=== PATIENT | female | born 1945 | race Caucasian/White ===

== ENCOUNTER → 2023-10-25 09:57 | Outpatient (REF) | payer OTHER, BC, SELFPAY ==
[2023-10-25 10:22] LABS: % Basophils 0.5 % (0-2); % Eosinophils 5.7 % (0-6); % Immature Granulocytes 0.7 % (0-0.5); % Lymphocytes 16.3 % (20.5-51.1); % Monocytes 8.8 % (1.7-9.3); Absolute Eosinophils 0.4 10^3/uL (0-0.7); Absolute Monocytes 0.5 10^3/uL (0.1-0.6); Absolute Neutrophils 4.2 10^3/uL (1.4-6.5); Hematocrit 27.4 % (37.0-47.0); Hemoglobin 8.8 g/dL (12.0-16.0); Mean Corp Hgb Conc. 32.1 g/dL (33.0-37.0); Mean Corpuscular Hgb 31.7 pg (27.0-31.0); Mean Corpuscular Volume 98.6 fL (81.0-99.0); Nucleated Red Blood Cells % 0 %; Platelet Count 91 10^3/uL (130-400); Red Blood Cell Count 2.78 10^6/uL (4.20-5.40); Red Cell Dist. Width 19.9 % (11.5-14.5); White Blood Cell Count 6.1 10^3/uL (4.8-10.8)
[2023-10-25 10:40] LABS: Ionized Calcium 1.03 mMOL/L (1.15-1.33)
[2023-10-25 10:50] LABS: Blood Urea Nitrogen 20 mg/dl (7-17); Carbon Dioxide 33 mmol/L (22-30); Chloride 104 mmol/L (98-107); Glucose 77 mg/dl (70-99); Potassium 3.4 mmol/L (3.5-5.1); Sodium 135 mmol/L (135-145); eGFR 52.08
== END ==
LOC: OLABP 09:57
PROVIDERS: ATTENDING PHYSICIAN Family Medicine
DX: S72.22XD Displaced subtrochanteric fracture of left femur, subsequent encounter for closed fracture with routine healing (principal); W19.XXXD Unspecified fall, subsequent encounter; M62.81 Muscle weakness (generalized); R26.2 Difficulty in walking, not elsewhere classified; N39.0 Urinary tract infection, site not specified; D72.829 Elevated white blood cell count, unspecified; I48.91 Unspecified atrial fibrillation; I50.9 Heart failure, unspecified; M54.50 Low back pain, unspecified; E03.9 Hypothyroidism, unspecified; I11.0 Hypertensive heart disease with heart failure; G47.30 Sleep apnea, unspecified; E66.9 Obesity, unspecified
CPT/HCPCS: 36415; 80048; 82330; 85025

== ENCOUNTER → 2023-10-26 10:19 | Outpatient (REF) | payer OTHER, BC, SELFPAY ==
[2023-10-26 12:17] LABS: Vitamin D, 25-OH*** < 12.8 ng/mL (30-80)
[2023-10-26 12:36] LABS: Calcium 7.1 mg/dl (8.4-10.2); Magnesium 1.8 mg/dl (1.6-2.3)
[2023-10-29 10:40] LABS: Intact PTH 69.9 pg/ml (13.6-85.8)
== END ==
LOC: OLABP 10:19
PROVIDERS: ATTENDING PHYSICIAN Family Medicine
DX: S72.22XD Displaced subtrochanteric fracture of left femur, subsequent encounter for closed fracture with routine healing (principal); W19.XXXD Unspecified fall, subsequent encounter; M62.81 Muscle weakness (generalized); R26.2 Difficulty in walking, not elsewhere classified; N39.0 Urinary tract infection, site not specified; B96.1 Klebsiella pneumoniae [K. pneumoniae] as the cause of diseases classified elsewhere; D72.829 Elevated white blood cell count, unspecified; I48.91 Unspecified atrial fibrillation; I50.9 Heart failure, unspecified; M54.50 Low back pain, unspecified; E03.9 Hypothyroidism, unspecified; I11.0 Hypertensive heart disease with heart failure; G47.30 Sleep apnea, unspecified; E66.9 Obesity, unspecified; Z79.899 Other long term (current) drug therapy
CPT/HCPCS: 36415; 82306; 83735; 83970; 84100

== ENCOUNTER 2023-11-12 20:03 | Inpatient (IN) | payer OTHER, SELFPAY ==
[2023-11-12] VITALS (19 sets, daily range): BP systolic 81–117; BP diastolic 43–64; BMI 36.4
[2023-11-12 16:56] LABS: % Basophils 0.2 % (0-2); % Lymphocytes 4.4 % (20.5-51.1); % Monocytes 3.5 % (1.7-9.3); % Neutrophils 90.9 % (42.2-75.2); Absolute Immature Granulocytes 0.1 10^3/uL (0-0.05); Absolute Lymphocytes 0.6 10^3/uL (1.2-3.4); Absolute Monocytes 0.4 10^3/uL (0.1-0.6); Absolute Neutrophils 11.3 10^3/uL (1.4-6.5); Hematocrit 34.6 % (37.0-47.0); Hemoglobin 11.9 g/dL (12.0-16.0); Mean Corp Hgb Conc. 34.4 g/dL (33.0-37.0); Mean Corpuscular Hgb 31.6 pg (27.0-31.0); Mean Corpuscular Volume 91.8 fL (81.0-99.0); Mean Platelet Volume 10.8 fL (7.4-10.4); Nucleated Red Blood Cells % 0 %; Platelet Count 112 10^3/uL (130-400); Red Blood Cell Count 3.77 10^6/uL (4.20-5.40); Red Cell Dist. Width 17.1 % (11.5-14.5); White Blood Cell Count 12.4 10^3/uL (4.8-10.8)
[2023-11-12 17:24] LABS: ALT (SGPT) 20 U/L (0-35); AST (SGOT) 46 U/L (14-36); Albumin 2.4 g/dl (3.5-5.0); Alkaline Phosphatase 316 U/L (38-126); Blood Urea Nitrogen 34 mg/dl (7-17); Calcium 7.7 mg/dl (8.4-10.2); Carbon Dioxide 31 mmol/L (22-30); Chloride 96 mmol/L (98-107); Glucose 126 mg/dl (70-99); Potassium 4.4 mmol/L (3.5-5.1); Sodium 128 mmol/L (135-145); Total Bilirubin 1.6 mg/dl (0.2-1.3); Total Protein 5.6 g/dl (6.3-8.2); eGFR 30.89
--- NOTE | 2023-11-12 17:32 | ED.GENMED ---
History of Present Illness
General
Chief Complaint: Change in Mental Status
Source: patient, records and family
Time Seen by Provider: 11/12/23 17:05
Travel History
Have you had any contact with someone who has COVID-19?: Unable to Answer
Do you have any symptoms of coronavirus? Fever > 100 degrees, chills, cough, shortness of breath, sore throat, loss of taste or smell, muscle aches, or headache?: Unable to Answer
History of Present Illness
History of Present Illness:
This patient is a 78-year-old female with multiple medical problems who was recently seen in outside hospital because of a leg fracture, and then transferred to [facility] which is where she is now. Her daughter states that over the last few days she
has had 'declining mental clarity'. She states that she was just diagnosed with a UTI and started on antibiotic and upon review of her records it appears that she was started on Levaquin yesterday. Yesterday the daughter noted that her blood
pressure was lower than normal and her blood pressure medications were held at that time. Daughter states patient has had a fever on and off for the last few days and that she has been refusing the lactulose that she is prescribed. She is also had
nausea on and off. History is very limited from patient given her mental status at this time. She denies any specific complaints.
Past History
Past History
ED Past Medical History: Arrthythmia (Atrial fibrillation), CHF, HTN, Hypercholesterolemia and Other ('Pituitary cyst'. Adrenal insufficiency,)
ED Past Surgical History: , Orthopedic and Tonsilectomy
Social History
Tobacco: Non-smoker
Alcohol: None
Drug: None
Personal:
Phy Exam
Physical Exam
Physical Exam:
GENERAL: Drowsy, in no apparent distress
EYE: pupils equal and reactive, conjunctive a pink, no photophobia
NECK: Supple, no significant adenopathy.
ENT: o/p clr, mm dry
CARDIAC: Regular rate and rhythm .
LUNGS: Equal breath sounds bilaterally, no acute respiratory distress, no wheezes or rhonchi, occasional very faint Rales bilaterally
ABDOMEN: Soft, without focal tenderness, no r/g
NEUROLOGICAL: Awake but drowsy, oriented to first name but not last name, oriented to year, able to identify her daughter by name, not oriented to location. Uncooperative with formal neurological exam such as [id number] etc. She has limited
range of motion of left lower extremity given recent surgery, does move right lower extremity but reluctant to do her formal leg raise. No asterixis noted
SKIN: Warm and dry, skin intact.
MUSCULOSKELETAL: Trace bilateral lower extremity edema, well perfused.
PSYCH: Normal and appropriate interaction.
Course
Orders/Labs/Results
Orders:
Orders
11/12/23 16:48
Complete Blood Count/With Diff Urgent
Comprehensive Metabolic Panel Urgent
Free T4 Urgent
Comment: ADD ON
Lactic Acid Urgent
TSH Urgent
Comment: ADD ON
Blood Culture Urgent
NIKKI Source: Blood/Venous
Specimen Description:
11/12/23 17:06
Blood Culture Urgent
NIKKI Source: Blood/Venous
Specimen Description:
11/12/23 17:21
0.9% Sodium Chloride 1000 ml [Nss] 1,000 ml IV BOLUS
11/12/23 17:23
CXR2 [CR Chest - 2 Views ] Stat
Comment:
Reason For Exam: reported fever
11/12/23 17:27
Hydrocortisone Sod Succinate [Solu-Cortef] 100 mg IV NOW STA
11/12/23 17:30
Meropenem [Merrem] 1,000 mg IV NOW STA
11/12/23 17:31
Add On- LAB Urgent
Tests Added?: TSH
11/12/23 17:48
Ammonia Urgent
Troponin I Stat
11/12/23 17:51
Sterile Water [Sterile Water For Injection] 10 ml .ROUTE .STK-MED ONE
11/12/23 17:54
Sterile Water [Sterile Water For Injection] 10 ml .ROUTE .STK-MED ONE
11/12/23 17:56
Add On- LAB Urgent
Tests Added?: Free T4
11/12/23 18:50
0.9% Sodium Chloride 1000 ml [Nss] 1,500 ml IV BOLUS
11/12/23 19:14
COVID-19 Antigen Urgent
Source: Nasal Swab
UA Reflex to Culture [Urinalysis Reflex To Culture] Stat
Date Specimen was Collected: 11/12/23
Time Specimen was Collected: 19:11
Urine Microscopic Reflex Cult Stat
Influenza A+B Rapid Molecular Stat
NIKKI Source: Nasal Swab
Specimen Description:
Urine Culture Stat
NIKKI Source: U
Specimen Description:
Date Specimen was Collected: 11/12/23
Time Specimen was Collected: 19:11
11/12/23 19:37
Admit/Transfer Patient As Directed
Co-Sign Provider:
Level of Care: Inpatient admission
Assign to:: ICU
Physician / Group: Hospitalist
Diagnosis: Sepsis, renal failure, adrenal failure
Reason for Hospitalization: Sepsis, renal failure, adrenal failure
Expected length of stay greater than two midnights?: Yes
ELOS- Estimated Length of Stay in days: 5
I certify the patient meets the requirements for IP care: Yes
11/12/23 19:39
Code Status As Directed
Resuscitation Status: Full Code
11/12/23 20:38
0.9% Sodium Chloride 1000 ml [Nss] 1,000 ml IV 80 mls/hr
Acetaminophen [Tylenol] 1,000 mg PO BID
Bisacodyl [Dulcolax] 10 mg RECTAL DAILY PRN
Lactulose [Duphalac/Chronulac] 20 grams PO BID
Magnesium Hydroxide [Milk of Magnesia] 30 ml PO DAILY PRN
Ondansetron HCl [Zofran] 4 mg PO Q8HPRN PRN
Phosphate Enema [Fleet Phosphate Enema-Adult] 118 ml RECTAL DAILYPRN PRN
Rifaximin [Xifaxan] 550 mg PO BID
Simethicone [Mylicon] 160 mg PO QIDPRN PRN
wound dressings [Triad Wound Dressing] 1 applic TOPICAL BID
11/12/23 20:38
Activity As Directed
Activity Level: With Assistance
Intake/ Output As Directed
Frequency: Per unit guidelines
Pneumatic Compression Sleeves As Directed
Type: Knee high
Vital Signs As Directed
Frequency: Per unit guidelines
DX Deep Vein Thrombosis Video Routine
11/12/23 20:51
Benzocaine/Menthol [Anesthetic Lozenge] 1 lozenge PO Q2H PRN
11/12/23 21:08
Lactic Acid Q4H
Comment: repeat q4 hours x 4 or until less than 2 mmol/L
11/13/23 00:00
Hydrocortisone Sod Succinate [Solu-Cortef] 100 mg IV Q8
11/13/23 03:39
Complete Blood Count/No Diff IN AM
Comprehensive Metabolic Panel IN AM
Lactic Acid Q4H
Comment: repeat q4 hours x 4 or until less than 2 mmol/L
11/13/23 Breakfast
Regular
At Your Request: Full Participation
Meropenem [Merrem] 1,000 mg IV Q12H
11/13/23 06:30
Levothyroxine [Synthroid] 100 mcg PO DAILY@0630
11/13/23 08:00
Fluoxetine HCl [Prozac] 20 mg PO DAILY
Liothyronine [Cytomel] 5 microgram PO DAILY
11/13/23 10:35
Lactic Acid Q4H
Comment: repeat q4 hours x 4 or until less than 2 mmol/L
11/14/23 08:00
Cyanocobalamin [Vitamin B-12] 1,000 mcg PO Q48H
Abnormal Lab Results
11/12/23 11/12/23
16:48 19:14
WBC 12.4 H 10^3/uL
(4.8-10.8)
RBC 3.77 L 10^6/uL
(4.20-5.40)
Hgb 11.9 L g/dL
(12.0-16.0)
Hct 34.6 L %
(37.0-47.0)
MCH 31.6 H pg
(27.0-31.0)
RDW 17.1 H %
(11.5-14.5)
Plt Count 112 L D 10^3/uL
(130-400)
MPV 10.8 H fL
(7.4-10.4)
Abs Immat Gran (auto) 0.1 H 10^3/uL
(0-0.05)
Absolute Neuts (auto) 11.3 H 10^3/uL
(1.4-6.5)
Absolute Lymphs (auto) 0.6 L 10^3/uL
(1.2-3.4)
Immature Gran % 1.0 H %
(0-0.5)
Neutrophils % 90.9 H %
(42.2-75.2)
Lymphocytes % 4.4 L %
(20.5-51.1)
Sodium 128 L mmol/L
(135-145)
Chloride 96 L mmol/L
(98-107)
Carbon Dioxide 31 H mmol/L
(22-30)
BUN 34 H mg/dl
(7-17)
Creatinine 1.7 H mg/dL
(0.6-1.0)
Glucose 126 H mg/dl
(70-99)
Calcium 7.7 L mg/dl
(8.4-10.2)
Total Bilirubin 1.6 H mg/dl
(0.2-1.3)
AST 46 H U/L
(14-36)
Alkaline Phosphatase 316 H U/L
(38-126)
Total Protein 5.6 L g/dl
(6.3-8.2)
Albumin 2.4 L g/dl
(3.5-5.0)
TSH < 0.02 L uIU/ml
(0.47-4.68)
Ur Occult Blood Reflex 3+ A
(Negative)
Urine Nitrite (Reflex) Positive A
(Negative)
Leukocyte Esterase Rfl 2+ A
(Negative)
Urine WBC (Reflex) 26-30 A /HPF
(0-5)
Urine Bacteria (Reflex) Moderate A
(Negative)
Urine Albumin (Reflex) 1+ A
(Neg - Trace)
11/12/23 16:48
11/12/23 16:48
Vital Signs
Initial and Last Documented VS:
Initial Vital Signs
Temp Pulse Resp BP Pulse Ox
98.1 F 77 36 109/60 96
11/12/23 16:41 11/12/23 16:41 11/12/23 16:41 11/12/23 16:41 11/12/23 16:41
Last Documented Vital Signs
Temp Pulse Resp BP Pulse Ox
99.1 F 79 19 102/53 95
11/13/23 19:08 11/13/23 22:00 11/13/23 22:00 11/13/23 22:00 11/13/23 22:12
*Critical Care Note
Total Time (30-74mins, 75-104mins- exclusive of procedures): 30
Update Note
Update Note:
Patient presents to the Emergency Department with ____mental status change
Number and Complexity of Problems Addressed at the Encounter
� Chronic conditions affecting care:
� Acute Exacerbation and/or Progression of Chronic Illness:
� Differential Diagnosis includes: But not limited to adrenal crisis, sepsis, hyperammonia level, dehydration, etc.
Amount and/or Complexity of Data to be Reviewed and Analyzed
� I performed an independent evaluation of and my interpretation is:
EKG:sinus with PVS, nonspec st/t abnl, no acute ischemia
CT:
Xrays:read by rads, atelect vs pna L base
Laboratory Studies:wbc elevation (c/w sepsis), anemia baseline, hypoNa (may be c/w adrenal insuff), baseline rigoberto insuffice, u/a c/w infx
Other:
� Review of other/old records reveals: Urine sample from November 10 of this year reviewed, patient has Klebsiella pneumonia in her urine ESBL sensitivity only to ertapenem, meropenem and Zosyn. All of which are penicillin
derivatives� Patient has allergy described as hives to penicillins, however she needs treatment and we will give her meropenem with very close observation for an allergic reaction.
� Clinical information was obtained by an independent historian: Daughter who is bedside
� Prescriptions/Medications Considered but not given:
� Further testing considered but not performed:
Risk of Complications and/or Morbidity or Mortality of Patient Management
� Social determinants of health affecting care:
� Discussion with other providers (PCP, Hospitalists, Consultants, etc):
� Escalation of care including admission/observation vs risk of discharge considered:Pt with ESBL urosepsis, bp responding to IVF, abx started, admit. (D/w dr Stoner/shiela). Suspect element of adrenal insuffic, hydrocortisone
also given in ED. Will continue to montior closely.
ED Attending Note
-
Portions of this chart may have been created with voice recognition software.� Occasional wrong word or��sound alike� substitutions may have occurred due to the inherent limitations of voice recognition software.
Discharge Plan
Departure
Patient Disposition: Admit
Admit to doctor: conchis
Presentation/result/management discussed w/ accepting MD/DO: Hospitalist
Condition: Fair
Discharge Problem:
urosepsis
Interventions
Interventions:
*Risk Screen - Suicide Last Done: 11/12/23 21:18
*General Assessment Last Done: 11/12/23 16:42
*Neglect/Abuse Screening Last Done: 11/12/23 16:42
ED- Fall Risk Assessment Last Done: 11/12/23 20:49
*ED COVID-19 Vaccine History Last Done: 11/12/23 21:15
*Nursing Disposition Last Done: 11/12/23 20:49
ED- Pulmonary Assessment Last Done: 11/12/23 20:49
ED-Psychological Assessment Last Done: 11/12/23 20:49
ED- Neurological Assessment Last Done: 11/12/23 16:43
ED- Cardiac Assessment Last Done: 11/12/23 20:49
Discharge Date and Time
Discharge Date/Time: 11/12/23 20:52
[2023-11-12] MEDS: SOLU-CORTEF 100 MG IV (17:57)
[2023-11-12] MEDS: MERREM 1000 MG IV (17:57)
[2023-11-12] MEDS: NSS 1000 IV ×2 (17:58→21:35)
[2023-11-12 18:22] LABS: TSH < 0.02 uIU/ml (0.47-4.68)
[2023-11-12 18:29] LABS: Ammonia 22 umol/L (9-30); Troponin I < 0.012 ng/ml
[2023-11-12 18:31] LABS: Free T4 1.38 ng/dl (0.78-2.19)
--- NOTE | 2023-11-12 19:15 | HPS.HSE ---
Family Physician
-
Family Physician: Christopher Nogueira MD
Chief Complaint
-
Change of mental status
History of Present Illness
78-year-old woman with recent leg fracture, and then transferred to [facility] for rehab (which is where she is now).� Over the last few days she has had 'declining mental clarity'.� She was diagnosed with a UTI and started on antibiotic (levaquin
yesterday.� Today her blood pressure was lower than normal and her blood pressure medications were held.� She has had a fever on and off for the last few days and has been refusing the lactulose that she is prescribed (DELILAH).� + nausea on and off.�
She denies any specific complaints, but is not a reliable historian given change of mental status. Per conversation with ER attending, her urine culture from 2 days ago grew an organism resistant to Levaquin and sensitive to meropenem. She has
received meropenem in the past without problems (she has PCN allergy).
Medical History
Past Medical History
Past Medical History: Reports Other
Additional Past Medical History:
Atrial fibrillation, paroxysmal
CHF, last known ef in 2020 was 50%, likely chronic diastolic failure
essential HTN,
Hypercholesterolemia
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
,
Orthopedic surgery
Tonsilectomy
liver cirrhosis (MAZARIEGOS)
Past Surgical History: Reports Other
Additional Past Surgical History:
See above
Social History
Unable to obtain full social history at this time due to: Acuity
Tobacco: Non-smoker
Alcohol: None
Drug: None
Family History
Family History: Not pertinent
Allergies / Home Medications
Allergies reflects when Allergies were last updated in [facility].
Home Medications with original date entered in [facility]
Allergy/Medication List:
Allergies
Allergy/AdvReac Type Severity Reaction Status Date / Time
Penicillins Allergy Hives Verified 10/17/19 16:15
Home Medications
apixaban 5 mg tablet (Eliquis) 5 mg PO BID Blood clot prevention/tx 10/17/19
levothyroxine 100 mcg tablet 100 mcg PO DAILY Thyroid 10/17/19
liothyronine 5 mcg tablet 5 mcg PO DAILY Thyroid 10/17/19
ondansetron HCl 4 mg tablet 4 mg PO Q8HPRN PRN nausea 10/17/19
rifaximin 550 mg tablet (Xifaxan) 550 mg PO BID Gastrointestinal issue 10/17/19
acetaminophen 500 mg tablet (Tylenol Extra Strength) 1,000 mg PO BID 11/12/23
amlodipine 10 mg tablet 10 mg PO DAILY 11/12/23
benzocaine 15 mg-menthol 3.6 mg lozenges (Cepacol Sore Throat (benzocaine-menthol)) 1 ruth mucous membrane Q2H PRN sore throat 11/12/23
bisacodyl 10 mg rectal suppository (Dulcolax (bisacodyl)) 10 mg VA DAILY PRN constipation 11/12/23
bisoprolol fumarate 5 mg tablet 5 mg PO DAILY Heart disease 11/12/23
bumetanide 1 mg tablet 1 mg PO DAILY 11/12/23
calcium carbonate 1,000 mg tablet 1,000 mg PO TID 11/12/23
cholecalciferol (vitamin D3) 125 mcg (5,000 unit) tablet 125 mcg PO DAILY 11/12/23
cyanocobalamin (vitamin B-12) 1,000 mcg tablet 1,000 mcg PO Q48H@0800 11/12/23
fluoxetine 20 mg capsule 20 mg PO DAILY 11/12/23
hydralazine 25 mg tablet 25 mg PO QID 11/12/23
lactulose 20 gram/30 mL oral solution 20 g PO BID 11/12/23
levofloxacin 750 mg tablet 750 mg PO DAILY 11/12/23
losartan 100 mg tablet 100 mg PO DAILY 11/12/23
magnesium hydroxide 400 mg/5 mL oral suspension (Milk of Magnesia) 30 ml PO DAILY PRN if no BM on day 4 of no BM 11/12/23
naloxone 4 mg/actuation nasal spray (Narcan) 4 mg intranasal Q3M PRN opioid suspected overdose 11/12/23
pantoprazole 40 mg tablet,delayed release 40 mg PO DAILY 11/12/23
prednisone 10 mg tablet 10 mg PO .TAPER 11/12/23
simethicone 80 mg chewable tablet 160 mg PO QIDPRN PRN flatulence 11/12/23
sodium phosphates 19 gram-7 gram/118 mL enema (Fleet Enema) 118 ml VA DAILYPRN PRN constipation 11/12/23
wound dressings (Triad Wound Dressing paste) 1 applic topical BID apply to left abd fold 11/12/23
Review of Systems
-
Unable to obtain full review of systems at this time due to: Acuity
History Source: Patient
Physical Exam
Vital Signs
Vital Signs
Temp Pulse Resp BP Pulse Ox
98.1 F 77 36 109/60 96
11/12/23 16:41 11/12/23 16:41 11/12/23 16:41 11/12/23 16:41 11/12/23 16:41
Physical Exam
General: Well Developed, Well Nourished, No Apparent Distress, Comfortable and Obese
HEENT: [place] Conjunctivae, Nose Appears Normal and Ears Appear Normal
Respiratory: Clear and Decreased Breath Sounds
Cardiac: S1/S2, Regular Rhythm and Other (faint heart sounds)
GI: Soft, Non Tender and Non Distended
Musculoskeletal: No Clubbing, No Cyanosis and No Edema
Skin: Warm, Dry and Rash (several breaks in her skin on UE and LE)
Neuro: Awake
Psych: Calm and Confused
Laboratory Results
-
11/12/23 16:48
11/12/23 16:48
Laboratory Results
Lactic Acid 2.0 mmol/L (0.7-2.0) 11/12/23 16:48
Total Bilirubin 1.6 mg/dl (0.2-1.3) H 11/12/23 16:48
AST 46 U/L (14-36) H 11/12/23 16:48
ALT 20 U/L (0-35) 11/12/23 16:48
Alkaline Phosphatase 316 U/L (38-126) H 11/12/23 16:48
Troponin I < 0.012 ng/ml 11/12/23 17:48
Data Reviewed
-
Lab Data: Labs Reviewed by me
Impression/Plan
-
IMPRESSION:
78 woman with adrenal insufficiency, sepsis from a urinary source. Significant findings:
WBC 12.4
Na 128
BUN/Creat 34/1.7, baseline 20/1.0
BP 109/60
PLAN:
1. Sepsis, urinary source, resistant organism
IV fluids
IV abx (meropenem given allergy to PCN, and tolerating meropenem in the past)
Hold BP meds
Draw new urine culture
2. Adrenal insufficiency - chronic issue
Stress dose IV steroids
3. Low Na, may be from decreased po and adrenal issues
IV steroids
IV saline
Recheck in am
4. Acute renal failure, BUN/Creat 34/1.7
IV saline
recheck in am
5. Anemia - chronic, likely from chronic disease, H/H 11.9/34.6
H/H at baseline
No indication for transfusion
6. Heart failure - chronic diastolic - does not appear volume overloaded at this time
Follow daily
7. Chronic wounds - change dressings as needed
8. Liver failure - continue xifaxan
9. Essential HTN - pressures now low. Hold BP meds
10. Paroxysmal afib - continue eliquis. No signs of bleeding
11. Otherwise complex PMH with GERD, constipation, depression, hypothyroid
Continue usual home meds
Full code
Eliquis for DVTp
[2023-11-12 19:34] LABS: Urine Albumin 1+ (Neg - Trace); Urine Bilirubin Negative (Negative); Urine Character Slightly Cloudy (Clear); Urine Color Yellow; Urine Glucose Negative (Negative); Urine Ketone Negative (Negative); Urine Leukocyte 2+ (Negative); Urine Nitrite Positive (Negative); Urine Occult Blood 3+ (Negative); Urine Urobilinogen Negative (Neg - 1+)
[2023-11-12] MEDS: NSS 1500 IV (19:37)
[2023-11-12 19:46] LABS: Urine Red Blood Cell 0-2 /HPF (0-2); Urine White Cell 26-30 /HPF (0-5)
[2023-11-12 19:47] LABS: Urine Bacteria Moderate (Negative)
[2023-11-12 19:51] LABS: COVID-19 Antigen Negative (Negative)
--- NOTE | 2023-11-12 21:12 | W.PN.SEPSIS ---
Sepsis
Vital Signs
Temp Pulse Resp BP Pulse Ox
98.1 F 88 21 110/61 94
11/12/23 16:41 11/12/23 20:45 11/12/23 20:45 11/12/23 20:30 11/12/23 20:45
Physical Exam
Physical Exam:
A focused exam was performed after fluid resuscitation.
Capillary Refill
Bilateral Upper Extremity:
[place] Time: Less than 3 sec
Bilateral Lower Extremity:
[place] Time: Less than 3 sec
Pulse Evaluation
Bilateral Radial:
Pulse Evaluation: Present
Bilateral Dorsalis Pedis:
Pulse Evaluation: Present
[2023-11-12 21:24] LABS: Glucose - Point of Care 103 mg/dl (70-99)
[2023-11-12] MEDS: DUPHALAC/CHRONULAC PO (21:26)
--- NOTE | 2023-11-12 21:27 | PTCARENOTE ---
received patient from ER into [id number]. oriented to name and . forgetful at times. SR on monitor, afebrile, weak pedal pulses. 2L NC, satting high 90s. diminished breath sounds noted. + bowel sounds, BM x1 upon arrival. purewick placed, brief intact.
CHG bath completed. b/l groin areas with MASD and open skin tears. barrier cream used. labs sent. plan of care ongoing.
[2023-11-12 21:34] LABS: APTT 69.8 Sec (23.4-35.0)
[2023-11-12] MEDS: TYLENOL 1000 MG PO (21:35)
[2023-11-12] MEDS: XIFAXAN 550 MG PO (21:36)
[2023-11-12 21:45] LABS: Lactic Acid 2.4 mmol/L (0.7-2.0)
[2023-11-12 22:37] LABS: INR 3.69; PT 36.7 Sec (11.4-14.6)
[2023-11-12] MEDS: SOLU-CORTEF 50 MG IV (23:22)
[2023-11-13] VITALS (34 sets, daily range): BP systolic 94–133; BP diastolic 45–91; BMI 36.4
--- NOTE | 2023-11-13 01:00 | PTCARENOTE ---
patient reassessed. systems unchanged. patient repositioned. denies pain. daughter updated at bedside before leaving for the night. plan of care ongoing.
[2023-11-13 03:53] LABS: Hematocrit 32.4 % (37.0-47.0); Mean Corpuscular Hgb 31.4 pg (27.0-31.0); Mean Corpuscular Volume 92.6 fL (81.0-99.0); Mean Platelet Volume 10.2 fL (7.4-10.4); Platelet Count 112 10^3/uL (130-400); Red Cell Dist. Width 16.8 % (11.5-14.5); White Blood Cell Count 10.4 10^3/uL (4.8-10.8)
[2023-11-13 04:04] LABS: Lactic Acid 2.2 mmol/L (0.7-2.0)
--- NOTE | 2023-11-13 04:09 | PTCARENOTE ---
patient reassessed. systems unchanged. no UOP, bladder scan for 400ml, straight cath for 400ml. purewick replaced. AM labs sent. patient repositioned. plan of care ongoing.
[2023-11-13 04:33] LABS: Procalcitonin 1.23 ng/ml (0.0-0.25)
[2023-11-13 04:45] LABS: ALT (SGPT) 16 U/L (0-35); AST (SGOT) 34 U/L (14-36); Albumin 2.1 g/dl (3.5-5.0); Alkaline Phosphatase 242 U/L (38-126); Blood Urea Nitrogen 35 mg/dl (7-17); Calcium 7.5 mg/dl (8.4-10.2); Carbon Dioxide 26 mmol/L (22-30); Chloride 98 mmol/L (98-107); Estimated Creatinine Clearance 33 ml/min; Glucose 142 mg/dl (70-99); Potassium 4.3 mmol/L (3.5-5.1); Sodium 132 mmol/L (135-145); Total Bilirubin 1.3 mg/dl (0.2-1.3); Total Protein 5.1 g/dl (6.3-8.2); eGFR 38.99
[2023-11-13] MEDS: STERILE WATER FOR INJECTION 20 ML IV ×2 (05:18→17:27)
[2023-11-13] MEDS: MERREM 1000 MG IV ×2 (05:18→17:27)
[2023-11-13] MEDS: SOLU-CORTEF 50 MG IV ×4 (05:18→23:05)
[2023-11-13] MEDS: SYNTHROID 100 MCG PO (05:19)
--- NOTE | 2023-11-13 07:27 | W.PN.HOSP.TC ---
Today's Communication/Plan
-
cont monitoring in ICU
IV abx meropenem
IVF
CT abd/pelvis oral contrast only
monitor lactic acid
monitor renal function
cont xifaxan lactulose
stress sterooids
Assessment / Plan
Assessment / Plan
Physical Exam
General: Well Developed, Well Nourished, No Apparent Distress, Comfortable and Obese
HEENT: [place] Conjunctivae, Nose Appears Normal and Ears Appear Normal
Respiratory: Clear and Decreased Breath Sounds
Cardiac: S1/S2, Regular Rhythm faint heart sounds
GI: Soft, Non Tender and distended vs obesity
Musculoskeletal: No Clubbing, No Cyanosis and No Edema
Skin: Warm, Dry and Rash (several breaks in her skin on UE and LE)
Neuro: Awake Oriented to Person only
Psych: Calm following simple commands
78F with hx Obesity recent leg fx [facility] pAfib HFpEF HTN HLD DM adrenal insufficiency MAZARIEGOS Cirrhosis here with TME sepsis UTI
#� Sepsis, urinary source, resistant organism
IV fluids
IV abx (meropenem given allergy to PCN, and tolerating meropenem in the past)
Hold BP meds
Follow cultures
#Lactic acidosis persists possibly d/t poor clearance Liver dysfunction/cirrhosis
received multiple IVF bolus
cont to monitor
CT abd/pelvis w/ oral contrast only given santosh, evaluation for possible source lactic acid elevation
#� Adrenal insufficiency - chronic issue
Stress dose IV steroids
#� Low Na, may be from decreased po and adrenal issues
Improved with IV steroids IVF NS
#� SANTOSH
Cr improving
Cont IVF
monitor kidney function
#� Anemia - chronic, likely from chronic disease
H/H at baseline
cont to monitor
#� Heart failure - chronic diastolic - appears euvolemic at this time
#� Chronic wounds - change dressings as needed
#� Cirrhosis - continue xifaxan lactulose
limited abd US appreciated no ascites
#� Essential HTN - pressures now low.� Hold BP meds
# Paroxysmal afib - continue eliquis.� No signs of bleeding
#Otherwise complex PMH with GERD, constipation, depression, hypothyroid
Continue usual home meds
Full code
Eliquis for DVTp
Discussed with patient and her daughter Ethel
Total Critical Care Time__50___ minutes. I was immediately available to the patient and staff. I personally examined, reviewed labs, diagnostic images/reports, interpretations, treatment plans, discussed patient care with other providers and
family/patient's daughter Ethel ( patient is unable to make decisions at this time due to AMS), entered orders as appropriate and documented the medical record.
Anticipated Discharge: > 48 hours
Subjective/Interval History
-
Date of Service: November 13, 2023
AOx1 oriented to person only. Daughter Ethel present during evaluation. Patient otherwise appears comfortably at this time. Denies pain. Tremors noted on outstretched ext's.
Objective Data
-
Labs:
Laboratory Results
11/12/23 11/13/23
21:08 03:39
WBC 10.4
Hgb 11.0 L
Hct 32.4 L
Plt Count 112 L
PT 36.7 H
INR 3.69
APTT 69.8 H
Sodium 132 L
Potassium 4.3
Chloride 98
Carbon Dioxide 26
BUN 35 H
Creatinine 1.4 H
Glucose 142 H
Calcium 7.5 L
Total Bilirubin 1.3
AST 34
ALT 16
Alkaline Phosphatase 242 H
Vital Signs:
Vital Signs
Temp Pulse Resp BP Pulse Ox
97.7 F 70 18 116/58 96
11/13/23 03:00 11/13/23 07:00 11/13/23 07:00 11/13/23 07:00 11/13/23 07:00
I&O
11/12/23 11/13/23 11/14/23
06:59 06:59 06:59
Intake Total 630 / 630
Output Total 400 / 400
Balance 230 / 230
--- NOTE | 2023-11-13 08:00 | PTCARENOTE ---
Pt received this am. Assessment as documented. Pt tremulous. Difficulty following sommands. Confused conversation. PAINTING. Weak extremities. Difficulty drinking and taking meds.
[2023-11-13] MEDS: CYTOMEL 5 MICROGRAM PO (09:09)
[2023-11-13] MEDS: XIFAXAN 550 MG PO (09:10)
[2023-11-13] MEDS: TYLENOL 1000 MG PO (09:10)
[2023-11-13] MEDS: DUPHALAC/CHRONULAC 20 GRAMS PO (09:10)
[2023-11-13] MEDS: PROZAC 20 MG PO (09:10)
[2023-11-13] MEDS: NSS 1000 IV ×2 (09:15→21:11)
--- NOTE | 2023-11-13 09:43 | CON.INTV ---
Consultation
Consultation Request
Date/Time Consultation Requested: 11/12/20232218
Date/Time Consultation Performed: 11/13/2023919
Requesting Provider: JW Carter
Performing Provider: Dr. Blackmon
Reason for Consultation: Hypotension/lactic acidosis
Medical History
-
Chief Complaint: Altered mental status
History of Present Illness:
78-year-old female with past med history of hyperlipidemia, CHF and A-fib who presented from rehab for change in mental status. Apparently patient tested positive for ESBL. Patient was altered in the ER. Blood pressure was low at 109/58 and she
was afebrile to 98.1 �F. CXR showed a left basilar opacity suggestive of atelectasis versus pneumonia. Labs showed hyponatremia, elevated creatinine, reduced TSH with normal free T4, leukocytosis, anemia and thrombocytopenia. COVID antigen was
negative. Urinalysis positive for UTI. She was given IV fluids with a total of 2.5 L 0.9% NS, and also given hydrocortisone and meropenem. She apparently has a history of adrenal insufficiency. Stress dose steroids were started and due to
concern for hypotension and worsening sepsis, she was transferred to ICU for further management. Critical care services consulted for additional recommendations.
PMHx: A-fib, history of CHF, hypertension/hyperlipidemia, history of CVA, sleep apnea on CPAP, history of diverticulitis, hypothyroidism, cataracts, renal calculi, history of UTI, adrenal insufficiency s/p pituitary cyst removal on chronic
prednisone (5mg daily), history of liver cirrhosis (MAZARIEGOS)
PSHx: Brain cyst removal; x 3; tonsillectomy; bilateral knee replacement
Past Medical History
Past Medical History: Other (Above as per HPI)
Past Surgical History: Other (Above as per HPI)
Social History
Tobacco: Non-smoker
Alcohol: None
Drug: None
Family History
Family History: Reviewed & Not Pertinent
Allergies / Home Medications
Allergies
Allergy/AdvReac Type Severity Reaction Status Date / Time
Penicillins Allergy Hives Verified 10/17/19 16:15
Home Medications
Medication Instructions Recorded Confirmed Last Taken Type
apixaban 5 mg tablet (Eliquis) 5 mg PO BID Blood clot 10/17/19 11/12/23 11/12/23 History
prevention/tx
levothyroxine 100 mcg tablet 100 mcg PO DAILY Thyroid 10/17/19 11/12/23 11/12/23 History
liothyronine 5 mcg tablet 5 mcg PO DAILY Thyroid 10/17/19 11/12/23 11/12/23 History
ondansetron HCl 4 mg tablet 4 mg PO Q8HPRN PRN nausea 10/17/19 11/12/23 10/17/19 History
rifaximin 550 mg tablet (Xifaxan) 550 mg PO BID Gastrointestinal 10/17/19 11/12/23 11/12/23 History
issue
acetaminophen 500 mg tablet 1,000 mg PO BID 11/12/23 11/12/23 11/12/23 History
(Tylenol Extra Strength)
amlodipine 10 mg tablet 10 mg PO DAILY 11/12/23 11/12/23 11/12/23 History
benzocaine 15 mg-menthol 3.6 mg 1 ruth mucous membrane Q2H PRN sore 11/12/23 11/12/23 Unknown History
lozenges (Cepacol Sore Throat throat
(benzocaine-menthol))
bisacodyl 10 mg rectal suppository 10 mg MI DAILY PRN constipation 11/12/23 11/12/23 Unknown History
(Dulcolax (bisacodyl))
bisoprolol fumarate 5 mg tablet 5 mg PO DAILY Heart disease 11/12/23 11/12/23 11/12/23 History
bumetanide 1 mg tablet 1 mg PO DAILY 11/12/23 11/12/23 11/12/23 History
calcium carbonate 1,000 mg tablet 1,000 mg PO TID 11/12/23 11/12/23 11/12/23 History
cholecalciferol (vitamin D3) 125 125 mcg PO DAILY 11/12/23 11/12/23 11/12/23 History
mcg (5,000 unit) tablet
cyanocobalamin (vitamin B-12) 1,000 mcg PO Q48H@0800 11/12/23 11/12/23 11/12/23 History
1,000 mcg tablet
fluoxetine 20 mg capsule 20 mg PO DAILY 11/12/23 11/12/23 11/12/23 History
hydralazine 25 mg tablet 25 mg PO QID 11/12/23 11/12/23 11/12/23 History
lactulose 20 gram/30 mL oral 20 g PO BID 11/12/23 11/12/23 11/12/23 History
solution
levofloxacin 750 mg tablet 750 mg PO DAILY 11/12/23 11/12/23 11/11/23 History
losartan 100 mg tablet 100 mg PO DAILY 11/12/23 11/12/23 11/12/23 History
magnesium hydroxide 400 mg/5 mL 30 ml PO DAILY PRN if no BM on day 11/12/23 11/12/23 Unknown History
oral suspension (Milk of Magnesia) 4 of no BM
naloxone 4 mg/actuation nasal 4 mg intranasal Q3M PRN opioid 11/12/23 11/12/23 Unknown History
spray (Narcan) suspected overdose
pantoprazole 40 mg tablet,delayed 40 mg PO DAILY 11/12/23 11/12/23 11/12/23 History
release
prednisone 10 mg tablet 10 mg PO .TAPER 11/12/23 11/12/23 11/12/23 History
simethicone 80 mg chewable tablet 160 mg PO QIDPRN PRN flatulence 11/12/23 11/12/23 Unknown History
sodium phosphates 19 gram-7 118 ml MI DAILYPRN PRN constipation 11/12/23 11/12/23 Unknown History
gram/118 mL enema (Fleet Enema)
wound dressings (Triad Wound 1 applic topical BID apply to left 11/12/23 11/12/23 11/12/23 History
Dressing paste) abd fold
Review of Systems
-
Unable to Obtain full review of systems at this time due to: Other (poor historian)
Vitals / Labs / Diagnostic Testing
Vital Signs
Temp Pulse Resp BP Pulse Ox
97.5 F 70 18 116/58 96
11/13/23 07:30 11/13/23 07:00 11/13/23 07:00 11/13/23 07:00 11/13/23 07:00
Lab Data
11/13/23 03:39
11/13/23 03:39
Laboratory Results
11/12/23
21:08
PT 36.7 H
INR 3.69
APTT 69.8 H
Microbiology
11/12/23 19:14 Nasal Swab Influenza Types A & B (TRISTAN) - Final
Negative for Influenza A & B, NAAT
Negative results must be combined with clinical observations
and patient history.
Nucleic Acid Amplification test (NAAT)performed on the
[employer] ID NOW platform.
Diagnostic Testing:
Physical Exam
-
HEENT: Normocephalic and Anicteric
Cardiovascular: S1/S2 and Peripheral Edema (trace LE edema b/l)
Respiratory: Wheeze (n), Rales (n), Rhonchi (n) and Non-Labored Respirations
GI: Soft, Non Distended and Non Tender
Neurology: Awake and Alert
Skin: Warm and Dry
General: Comfortable
Assessment
-
Assessment: 78-year-old female with past med history of hyperlipidemia, CHF and A-fib who presented from rehab for change in mental status. Apparently patient tested positive for ESBL. Patient was altered in the ER. Blood pressure was low at
109/58 and she was afebrile to 98.1 �F. CXR showed a left basilar opacity suggestive of atelectasis versus pneumonia. Labs showed hyponatremia, elevated creatinine, reduced TSH with normal free T4, leukocytosis, anemia and thrombocytopenia. COVID
antigen was negative. Urinalysis positive for UTI. She was given IV fluids with a total of 2.5 L 0.9% NS, and also given hydrocortisone and meropenem. She apparently has a history of adrenal insufficiency. Stress dose steroids were started and
due to concern for hypotension and worsening sepsis, she was transferred to ICU for further management. Critical care services consulted for additional recommendations.
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
history of liver cirrhosis (MAZARIEGOS)
Impression:
#Complicated UTI with sepsis without shock with history of ESBL Klebsiella pneumonia UTI (Dx on 11/10/2023)
#Hypochloremic, hyponatremia
#Acute kidney injury
#Elevated LFTs
#Hypoalbuminemia
#Subclinical hyperthyroidism
#Anemia (mild) and thrombocytopenia - likely due to sepsis
#Lactic acidosis
Plan:
- Maintain MAP>65
- Broad spectrum Abx with meropenem and follow up infectious workup (blood and urine Cx)
- Trend lactic acid until <2mmol/L
- Would favor administering albumin until >3g/dl
- renally dose all meds
- Maintain euglycemia with goal BG 140�180
- Replete K >4, Mg >2
- DVT prophylaxis
Due to lactic acidosis with need for hourly vital signs and possible need for vasopressors, continue ICU level care for this critically ill patient.
Critical care statement: A total of 40 minutes of critical care time was provided for this patient today. This includes management of unstable vital signs, evaluation of the patient at bedside, reviewing the patient's pertinent medical records
including radiographs, microbiology, laboratory evaluations, and discussion with primary team, consultants, pharmacy, nutrition, physical therapy, case management, charge nurse, critical care nursing, and respiratory therapy.
Data:
CXR 11-12-2023: Left basilar opacity suggesting atelectasis or mild pneumonia
Abd US 11-13-2023: No sonographic evidence for abdominal ascites.
[2023-11-13 12:46] LABS: Lactic Acid 3.6 mmol/L (0.7-2.0)
--- NOTE | 2023-11-13 13:00 | PTCARENOTE ---
Pt improving slightly. Seems more coherent. Able to have some conversations. Seems confused at times. Daughter at bedside. Tolerating lunch. No difficulty noted with intake. Less tremulous. Denies pain. Appears comfortable.
[2023-11-13] MEDS: NSS 500 IV ×2 (13:13→17:26)
[2023-11-13] MEDS: OMNIPAQUE 50 ML PO (17:26)
--- NOTE | 2023-11-13 19:15 | PTCARENOTE ---
Pt received this am. Assessment as documented. No changes since this am. Pt tremulous. Confused conversation.
[2023-11-13] MEDS: DUPHALAC/CHRONULAC PO (19:18)
[2023-11-13] MEDS: TYLENOL PO (19:18)
[2023-11-13] MEDS: XIFAXAN PO (19:19)
[2023-11-13 19:53] LABS: Lactic Acid 2.2 mmol/L (0.7-2.0)
--- NOTE | 2023-11-13 20:22 | PTCARENOTE ---
1930- received patient. oriented to name and . slow to respond. daughter at bedside facilitating conversation. SR on monitor. 2L NC, diminished breath sounds noted. pt with difficulty swallowing meds, notified by khai RN that she pocketed
them on roof of mouth this morning, could benefit from speech consult. + bowel sounds. purewick in place. IVF infusing. labs sent.
1999- transported pt down to CT after finishing oral contrast.
2019- pt back in room and repositioned. plan of care ongoing.
[2023-11-13] MEDS: ELIQUIS PO (21:10)
--- NOTE | 2023-11-13 21:39 | PTCARENOTE ---
patient incontinent after CT. bladder scanned and straight cath'd, purewick replaced. CHG bath done, fresh linens, patient repositioned.
wool tamper made aware of pocketing medicine incident on dayshift. plan of care ongoing.
[2023-11-14] VITALS (18 sets, daily range): BP systolic 103–144; BP diastolic 45–90; PULSE 63–78; O2SAT 94–97; BMI 36.6
--- NOTE | 2023-11-14 00:54 | PTCARENOTE ---
patient reassessed. systems unchanged. pt resting comfortably in bed, q2h turns. denies pain. plan of care ongoing.
[2023-11-14 04:04] LABS: Hematocrit 31.2 % (37.0-47.0); Hemoglobin 10.4 g/dL (12.0-16.0); Mean Corp Hgb Conc. 33.3 g/dL (33.0-37.0); Mean Corpuscular Hgb 31.8 pg (27.0-31.0); Mean Corpuscular Volume 95.4 fL (81.0-99.0); Mean Platelet Volume 10.5 fL (7.4-10.4); Platelet Count 112 10^3/uL (130-400); Red Blood Cell Count 3.27 10^6/uL (4.20-5.40); White Blood Cell Count 11.3 10^3/uL (4.8-10.8)
--- NOTE | 2023-11-14 04:05 | PTCARENOTE ---
patient reassessed. systems unchanged. AM labs sent patient repositioned. denies pain or SOB. plan of care ongoing.
[2023-11-14 04:21] LABS: Lactic Acid 1.5 mmol/L (0.7-2.0)
[2023-11-14 04:52] LABS: Blood Urea Nitrogen 36 mg/dl (7-17); Calcium 7.7 mg/dl (8.4-10.2); Carbon Dioxide 25 mmol/L (22-30); Chloride 102 mmol/L (98-107); Estimated Creatinine Clearance 42 ml/min; Glucose 122 mg/dl (70-99); Magnesium 2.3 mg/dl (1.6-2.3); Phosphorus 3.5 mg/dl (2.5-4.5); Sodium 133 mmol/L (135-145); eGFR 52.08
[2023-11-14] MEDS: SOLU-CORTEF 50 MG IV ×3 (05:14→23:53)
[2023-11-14] MEDS: MERREM 1000 MG IV ×2 (05:14→17:16)
[2023-11-14] MEDS: STERILE WATER FOR INJECTION 20 ML IV ×2 (05:15→17:16)
[2023-11-14] MEDS: SYNTHROID PO (05:15)
--- NOTE | 2023-11-14 05:32 | PTCARENOTE ---
patient reassessed. systems unchanged. pt remains comfortable in bed, resting. AM labs sent. patient repositioned. plan of care ongoing.
--- NOTE | 2023-11-14 07:00 | W.PN.HOSP.TC ---
Today's Communication/Plan
-
Stable for downgrade to IMU
Maxitrol started for left eye conjunctivitis
cont meropenem
ID eval
ST/PT/OT
Assessment / Plan
Assessment / Plan
Physical Exam
General: Well Developed, Well Nourished, No Apparent Distress, Comfortable and Obese
HEENT: [place] Conjunctivae, Nose Appears Normal and Ears Appear Normal
Respiratory: Clear and Decreased Breath Sounds
Cardiac: S1/S2, Regular Rhythm faint heart sounds
GI: Soft, Non Tender and distended vs obesity
Musculoskeletal: No Clubbing, No Cyanosis and No Edema
Skin: Warm, Dry and Rash (several breaks in her skin on UE and LE)
Neuro: AOx2 disoriented to time, tremors on outstretched hands improved
Psych: Calm Cooperative
78F with hx Obesity recent leg fx [facility] pAfib HFpEF HTN HLD DM adrenal insufficiency MAZARIEGOS Cirrhosis here with TME sepsis UTI
#� Sepsis, urinary source, resistant organism
IV fluids
IV abx (meropenem given allergy to PCN, and tolerating meropenem in the past)
Hold BP meds
Follow cultures
ID eval requested
#Lactic acidosis persists possibly d/t poor clearance Liver dysfunction/cirrhosis
received multiple IVF bolus
since resolved
CT abd/pelvis w/ oral contrast only given santosh, evaluation for possible source persistent lactic acid elevation
CT (limited by motion) noted
-Minimal amount of left pleural fluid. Parenchymal opacity within the visualized lower lungs, most likely atelectasis (incentive spirometry ordered)
-calcified gallstones, No gross evidence to suggest cholecystitis
-Cirrhotic liver.
-Atrophic adrenal glands bilaterally
-Enlarged right renal pelvis and proximal to mid right ureter, with normal caliber distal right ureter, no convincing evidence for right ureteral calculus (as per urology's review of imaging, enlargement likely d/t Rt UPJ obstruction cogenital
abnormality no intervention required)
-Mild dilation of the common iliac arteries bilaterally. Tortuosity of the abdominal aorta with no evidence for abdominal aortic aneurysm.
-Moderate distention of the rectum with stool, transverse measures 6.5 cm. No convincing evidence for stercoral colitis. (once suppository 11/14 administered with subsequent moderate bowel movement noted)
-Moderate amount of subcutaneous edema. Not mentioned above, there is also a small moderate amount of presacral edema.
-Mild superior endplate depression of the T10, T11, T12, and L4 vertebral bodies. Age is uncertain, although these findings appear new since of bowel radiograph of July 10, 2012. Please correlate with any acute symptoms.
-Previous vertebroplasty involving L1, L2, and L3.
-Top normal lymph nodes in the portacaval region. There is an enlarged interaortocaval lymph node. These are nonspecific, and could be inflammatory or neoplastic. Statistically, these are probably more likely to be reactive inflammatory lymph nodes.
#� Adrenal insufficiency - chronic issue
Stress dose IV steroids taper
#� Low Na, may be from decreased po and adrenal issues
Improved with IV steroids IVF NS
Cont to monitor
IVF since completed, steroid taper as above
#� SANTOSH resolved
Cr improved likely baseline 1.1
IVF completed
monitor kidney function
#Possible Left eye conjunctivitis
-Maxitrol eye drop started
-monitor response
#� Anemia - chronic, likely from chronic disease
H/H relatively stable at this time, some trickle down noted initial 11.9 down to 10.4
No obvious signs of bleeding, will cont to monitor
#� Heart failure - chronic diastolic - appears euvolemic at this time
#� Chronic wounds - change dressings as needed
#� Cirrhosis - continue xifaxan lactulose
limited abd US appreciated no ascites
#� Essential HTN - antihypertensives on hold for now given low normotensive pressures
# Paroxysmal afib - continue eliquis.� No signs of bleeding
#Otherwise complex PMH with GERD, constipation, depression, hypothyroid
Continue usual home meds
Full code
Eliquis for DVTp
Stable for downgrade to IMU
Discussed with patient and her daughter Ethel
I spent a total of 55 minutes with the patient or on the floor. More than 50% of this time involved counseling and coordination of care.
Anticipated Discharge: 24 - 48 hours
Subjective/Interval History
-
Date of Service: November 14, 2023
Seen and examined at bedside in no acute distress resting comfortably in bed. Altered Mental status and tremors outstretched hands significantly improved though not resolved. Later reported blurry vision itching left eye unclear duration
Objective Data
-
Labs:
Laboratory Results
11/14/23
03:55
WBC 11.3 H
Hgb 10.4 L
Hct 31.2 L
Plt Count 112 L
Sodium 133 L
Potassium 4.0
Chloride 102
Carbon Dioxide 25
BUN 36 H
Creatinine 1.1 H
Glucose 122 H
Calcium 7.7 L
Vital Signs:
Vital Signs
Temp Pulse Resp BP Pulse Ox
98.4 F 71 15 122/51 94
11/14/23 03:58 11/14/23 06:00 11/14/23 06:00 11/14/23 06:00 11/14/23 06:00
I&O
11/13/23 11/14/23 11/15/23
06:59 06:59 06:59
Intake Total 630 / 710 2960 / 2960
Output Total 400 / 400 500 / 500
Balance 230 / 310 2460 / 2460
--- NOTE | 2023-11-14 07:25 | W.PN.INTV ---
Today's Communication / Plan
Recommendations
Wean stress dose steroids to off
Antibiotics per primary service
Follow platelets
Stop IV fluids, advance diet
For transfer out of ICU. We will sign off. Please call with questions
Assessment
-
Assessment: 78-year-old female with past med history of hyperlipidemia, CHF and A-fib who presented from rehab for change in mental status. Apparently patient tested positive for ESBL. Patient was altered in the ER. Blood pressure was low at
109/58 and she was afebrile to 98.1 �F. CXR showed a left basilar opacity suggestive of atelectasis versus pneumonia. Labs showed hyponatremia, elevated creatinine, reduced TSH with normal free T4, leukocytosis, anemia and thrombocytopenia. COVID
antigen was negative. Urinalysis positive for UTI. She was given IV fluids with a total of 2.5 L 0.9% NS, and also given hydrocortisone and meropenem. She apparently has a history of adrenal insufficiency. Stress dose steroids were started and
due to concern for hypotension and worsening sepsis, she was transferred to ICU for further management. Critical care services consulted for additional recommendations.
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
history of liver cirrhosis (MAZARIEGOS)
Impression:
#Complicated UTI with sepsis without shock with history of ESBL Klebsiella pneumonia UTI (Dx on 11/10/2023)
#Hypochloremic, hyponatremia
#Acute kidney injury
#Elevated LFTs
#Hypoalbuminemia
#Subclinical hyperthyroidism
#Anemia (mild) and thrombocytopenia - likely due to sepsis
#Lactic acidosis
Plan:
At this time, patient appears to be objectively and subjectively improved
Hemodynamics improved, 95% on 2 L
Lactate normal at 1.5
Patient tolerating p.o.
Moving forward
Discontinue IV fluids
Follow platelets
Continue antibiotics per primary service, currently on meropenem
Wean IV steroids, stress dose steroids noted, wean to off. Patient on outpatient prednisone
Eventual transition to outpatient regimen
Out of bed to chair, PT/OT
For transfer out of ICU.
We will sign off. Please call with questions
Data:
CXR 11-12-2023: Left basilar opacity suggesting atelectasis or mild pneumonia
Abd US 11-13-2023: No sonographic evidence for abdominal ascites.
Subjective Dataa
Subjective Data
Date of Service:
Date of Service: November 14, 2023
Subjective:
Patient is without complaints. Denies chest pain, shortness of breath, abdominal pain, nausea.
Objective Data
Data Reviewed
Vital Signs / I&O / Oxygen:
Vital Signs
Temp Pulse Resp BP Pulse Ox
98.2 F 76 19 128/63 94
11/14/23 07:18 11/14/23 07:03 11/14/23 07:03 11/14/23 07:03 11/14/23 07:03
Intake and Output
11/13/23 11/14/23 11/15/23
06:59 06:59 06:59
Intake Total 630 / 710 2960 / 2960
Output Total 400 / 400 500 / 500
Balance 230 / 310 2460 / 2460
SaO2 94
Nasal Cannula flow liters per 2
minute
Physical Exam
General: Comfortable
HEENT: Normocephalic, Anicteric and Other (Large neck)
Cardiovascular: S1-S2, Regular Rhythm, Murmur (n), Rub and Peripheral Edema (n)
Respiratory: Wheeze (n), Crackles (n), Rhonchi (n) and Non-Labored Respirations
GI: Soft, Non Distended (Obese) and Non Tender
Neurology: Awake, Alert, Oriented and No Motor Deficits
Skin: Cyanosis (n), Rash (n) and Bruising (Few ecchymoses)
Labs/Micro/Reports
Lab Data
11/14/23 03:55
11/14/23 03:55
Microbiology
11/12/23 17:06 Blood/Venous Blood Culture - Preliminary
No Growth in 24 hours- Final report to follow
11/12/23 16:48 Blood/Venous Blood Culture - Preliminary
No Growth in 24 hours- Final report to follow
11/12/23 19:14 Nasal Swab Influenza Types A & B (TRISTAN) - Final
Negative for Influenza A & B, NAAT
Negative results must be combined with clinical observations
and patient history.
Nucleic Acid Amplification test (NAAT)performed on the
[employer] platform.
[2023-11-14] MEDS: DUPHALAC/CHRONULAC 20 GRAMS PO ×2 (08:15→20:05)
[2023-11-14] MEDS: VITAMIN B-12 1000 MCG PO (08:15)
[2023-11-14] MEDS: CYTOMEL 5 MICROGRAM PO (08:15)
[2023-11-14] MEDS: PROZAC 20 MG PO (08:15)
[2023-11-14] MEDS: XIFAXAN 550 MG PO ×2 (08:15→20:05)
[2023-11-14] MEDS: PROTONIX 40 MG PO (08:15)
[2023-11-14] MEDS: ELIQUIS 5 MG PO ×2 (08:15→20:05)
[2023-11-14] MEDS: TYLENOL 1000 MG PO ×2 (08:15→20:05)
--- NOTE | 2023-11-14 08:40 | PTCARENOTE ---
report received, assessments per work list. patient drowsy, initially confused to place and time. able to reorient easily. tremors noted. patient able to take medications whole in applesauce without overt signs aspiration. lungs with crackles 1/2
bilaterally. orthopnea. pulse oximeter 93-96 on 2 liters. abdomen soft, distended with hyperactive bowel sounds. bladder scan as documented, purewick in place. call mccall in reach
--- NOTE | 2023-11-14 10:08 | CON.ID ---
Consultation
-
Date/Time Consultation Requested: 11/14/23 9:04
Date/Time Consultation Performed: 11/14/23 10:09
Requesting Provider: Dr Alvarenga
Performing Provider: Dr Barnhart
Reason for Consultation: AMS
Chief Complaint / Past History
Chief Complaint
AMS
History of Present Illness
Ms Miller is a 78 year old female with history notable for MAZARIEGOS, CHF, she was recently hospitalized elsewhere for a leg fracture discharged to [facility] and has been on a steroid taper outpatient currently at pred 10 mg. She was noted to have AMS
there and was diagnosed with UTI 11/10 with UA showing: >100 WBC/hpf and moderate bacteuria, urine culture with ESBL K pneumonia with full sensitivity to carbapenems and zosyn only - otherwise resistant to tested isolates - she was stared on levaquin
(later found to be resistant), blood cultures on arrival 11/12 no growth to date, a repeat urine culture 11/12 finalized negative.
Since arrival here she has been afebrile, BP stable, wbc 12.4 on arrival now 11.3, hgb 10.4, plt 112, cr on arrival 1.7 now 1.1, repeat ua 26-30 wubc (improved from >100) and moderate bacteria, CT a/p without IV contrast: cirrhotic liver, no
significant ascites reported, US abd: no ascites, currently on meropenem and rifaxamin, first full day of meropenem was 11/13, ID is consulted for assistance with management.
Past History
Additional Past Medical History:
Atrial fibrillation, paroxysmal
CHF, last known ef in 2019 was 50%, likely chronic diastolic failure
essential HTN,
Hypercholesterolemia
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
,
Orthopedic surgery
Tonsilectomy
liver cirrhosis (MAZARIEGOS)
Past Surgical History: Reports Other
Additional Past Surgical History:
Brain cyst removal; x 3; tonsillectomy; bilateral knee replacement
Allergy History:
Penicillins Allergy (Verified 10/17/19 16:15)
Hives
Medications Reviewed: Yes
Social History
Tobacco: Non-Smoker
Alcohol: None
Drug: None
Family History
Family History: Not Pertinent
Review of Systems
Review of Systems
General: Negative Fever or Chills
unable to obtain due to the condition of the patient
Vital Signs
Temp Pulse Resp BP Pulse Ox
98.2 F 66 19 125/60 94
11/14/23 07:18 11/14/23 09:00 11/14/23 09:00 11/14/23 09:00 11/14/23 08:20
Physical Exam
Physical Exam
Constitutional: No Acute Distress and Obese
Cardiovascular: Regular Rate and S1/S2; Negative Murmur or Rub
Pulmonary: Clear and Symmetric; Negative Wheezes, Rales or Rhonchi
Gastrointestinal: Soft, Non Tender, Non Distended and Normal Bowel Sounds
Skin: Warm and Dry; Negative Rash or Jaundice
Neurological: Other (tremulous - difficult to distinguish asterexis )
Lab / Diagnostic Study Results
11/14/23 03:55
11/14/23 03:55
Abs Immat Gran (auto) 0.1 10^3/uL (0-0.05) H 11/12/23 16:48
Absolute Neuts (auto) 11.3 10^3/uL (1.4-6.5) H 11/12/23 16:48
Absolute Lymphs (auto) 0.6 10^3/uL (1.2-3.4) L 11/12/23 16:48
Absolute Monos (auto) 0.4 10^3/uL (0.1-0.6) 11/12/23 16:48
Absolute Basos (auto) 0.0 10^3/uL (0-0.2) 11/12/23 16:48
Immature Gran % 1.0 % (0-0.5) H 11/12/23 16:48
Neutrophils % 90.9 % (42.2-75.2) H 11/12/23 16:48
Lymphocytes % 4.4 % (20.5-51.1) L 11/12/23 16:48
Monocytes % 3.5 % (1.7-9.3) 11/12/23 16:48
Eosinophils % 0.0 % (0-6) 11/12/23 16:48
Basophils % 0.2 % (0-2) 11/12/23 16:48
PT 36.7 Sec (11.4-14.6) H 11/12/23 21:08
INR 3.69 11/12/23 21:08
Lactic Acid 1.5 mmol/L (0.7-2.0) 11/14/23 03:55
Procalcitonin 1.23 ng/ml (0.0-0.25) H 11/13/23 03:39
Microbiology Results
Micro:
11/12/23 17:06 Blood Culture - Preliminary
Blood/Venous No Growth in 24 hours- Final report to follow
11/12/23 16:48 Blood Culture - Preliminary
Blood/Venous No Growth in 24 hours- Final report to follow
11/12/23 19:14 Influenza Types A & B (TRISTAN) - Final
Nasal Swab Negative for Influenza A & B, NAAT
Negative results must be combined with clinical observations
and patient history.
Nucleic Acid Amplification test (NAAT)performed on the
[employer] ID NOW platform.
11/12/23 19:14 Urine Culture - Pending
Urine
Assessment / Plan
ESBL Kleb UTI
Toxic Metabolic Encephalopathy - improving
H/o adrenal Insufficiency on chronic steroids
MAZARIEGOS cirrhosis
Recent L femur fixation
Reported hives with penicillin
- initially mildly hypotensive - responded to fluids, no evidence of pyelo on imaging or exam
- blood cultures x2 no growth to date
- 2/17 UA already with improved pyuria
- agree with meropenem second full day of treatment - tentatively plan 3 day course through 11/15
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
- follow up with GI and PCP
--- NOTE | 2023-11-14 10:17 | PTCARENOTE ---
patient c/o blurry vision left eye. slight edema and redness noted. Hospitalist updated by tiger text. patient assisted with oral care, patient had difficulty in removing denture. gums slightly bloody, large amount debris cleaned from denture.
daughter at bedside. updated. patient IMU level of care
[2023-11-14] MEDS: DULCOLAX 10 MG RECTAL (10:53)
[2023-11-14] MEDS: NSS IV (10:57)
[2023-11-14] MEDS: SYNTHROID 100 MCG PO (10:59)
[2023-11-14] MEDS: [UNRECOGNIZED DRUG - OTHER] 1 DROP OPHTH ×4 (11:30→20:05)
[2023-11-14] MEDS: DESENEX/MITRAZOL/ZEASORB 1 APPLIC TOPICAL ×2 (11:30→20:06)
--- NOTE | 2023-11-14 12:56 | PTCARENOTE ---
per patient daughter, patient was instructed to be non weight bearing left leg, PT/OT updated. they assisted patient to sit at bedside. dangled only as patient unable to stand utilizing right leg only.
--- NOTE | 2023-11-14 13:06 | PTOTSP ---
ST Initial Evaluation
Mild/functional oral dysphagia; extended yet effective mastication of regular solids
Recommend
1. Continue regular solids/thin liquids
2. Aspiration precautions and meal set up assist
3. Small bites, moisten solids with gravy/sauce and slow rate of intake
4. Meds whole/single placed in apple sauce
5. COURT SPECIALIST follow up 1-2x monitor diet tolerance
--- NOTE | 2023-11-14 14:05 | CM ---
CM following re: discharge planning.
Discussed in Rounds, reviewed pt's chart, met with pt. Pt's and pt's daughter Ethel at bedside.
Pt is a 78 year old female, admitted with primary dx of Complicated UTI with sepsis without shock.
Pt reports she lives with in a 2SH, 2 steps to enter, has 3 supportive children. Pt reports she ambulates with a walker art baseline. Pt reports she was at [facility] for a leg fracture and was discharged to [facility] and
from [facility] pt admitted to .
Pt's daughter stated that pt was at some point at [facility] rehab in the past. pt's daughter stated she is looking for another SNF, she stated that pt will not return back to [facility]. A list of SNFs provided. Pt's daughter stated she
understands that pt is not weight bearing till 11/24/23 and her physical rehabilitation is limited. Anyway, pt's daughter stated she is looking for a SNF that better equipped for medical rehabilitation. Pt's daughter stated she feels that for
medical rehabilitation [place] [facility] is the best option but pt has not weight bearing status till 11/24/23.
D/C plan: Preferred and requested SNF. CM will coordinate with pt's daughter Ethel regarding SNF options.
CM will follow with discharge plan updates as hospitalization progresses
--- NOTE | 2023-11-14 15:38 | PTCARENOTE ---
Addendum entered by Chhaya Hanna RN 11/14/23 16:51:
patient with short self limited burst afib, rate 140's. see strip in chart
Original Note:
patient reassessed, poor oral intake for lunch. bladder scan and straight cath as per work list. patient with excoriation perineum, labia. pure wick removed.
--- NOTE | 2023-11-14 20:30 | PTCARENOTE ---
patient received. oriented x3. forgetful at times. SR on monitor. +2 generalized edema. 1L NC, diminished breath sounds noted. meds given in apple sauce. pt with BM, CHG bath given, fresh linens placed, patient repositioned. pt with incontinence,
bladder scan for 117ml. cream and desenex to b/l groin areas and sacrum. extremities elevated on pillows. oral care provided. call mccall within reach. plan of care ongoing.
[2023-11-15] VITALS (35 sets, daily range): BP systolic 133–164; BP diastolic 60–86; PULSE 58–60; O2SAT 96–97; BMI 37.9
--- NOTE | 2023-11-15 00:08 | PTCARENOTE ---
patient reassessed. systems unchanged. pt with BM, cleaned and repositioned. plan of care ongoing.
[2023-11-15 04:43] LABS: Hematocrit 32.5 % (37.0-47.0); Hemoglobin 10.8 g/dL (12.0-16.0); Mean Corp Hgb Conc. 33.2 g/dL (33.0-37.0); Mean Corpuscular Volume 96.2 fL (81.0-99.0); Mean Platelet Volume 10.4 fL (7.4-10.4); Platelet Count 108 10^3/uL (130-400); Red Blood Cell Count 3.38 10^6/uL (4.20-5.40); Red Cell Dist. Width 16.8 % (11.5-14.5)
[2023-11-15 04:59] LABS: Blood Urea Nitrogen 36 mg/dl (7-17); Calcium 8.5 mg/dl (8.4-10.2); Carbon Dioxide 25 mmol/L (22-30); Chloride 105 mmol/L (98-107); Estimated Creatinine Clearance 46 ml/min; Glucose 135 mg/dl (70-99); Magnesium 2.4 mg/dl (1.6-2.3); Phosphorus 3.1 mg/dl (2.5-4.5); Potassium 4.2 mmol/L (3.5-5.1); Sodium 136 mmol/L (135-145); eGFR 58.39
[2023-11-15] MEDS: SYNTHROID 100 MCG PO (05:18)
--- NOTE | 2023-11-15 05:18 | PTCARENOTE ---
patient reassessed. systems unchanged. AM labs sent. pt cleaned and repositioned in bed. plan of care ongoing.
[2023-11-15] MEDS: STERILE WATER FOR INJECTION 20 ML IV (05:19)
[2023-11-15] MEDS: MERREM 1000 MG IV (05:19)
--- NOTE | 2023-11-15 07:29 | W.PN.HOSP.TC ---
Today's Communication/Plan
-
Abx as per ID
PT/OT
Neuro Ophthalmology Urology eval
lidocaine patch
IMU
Assessment / Plan
Assessment / Plan
Physical Exam
General: Well Developed, Well Nourished, No Apparent Distress, Comfortable and Obese
HEENT: [place] Conjunctivae, Nose Appears Normal and Ears Appear Normal
Respiratory: Clear and Decreased Breath Sounds
Cardiac: S1/S2, Regular Rhythm faint heart sounds
GI: Soft, Non Tender and distended vs obesity
Musculoskeletal: No Clubbing, No Cyanosis and No Edema
Skin: Warm, Dry and Rash (several breaks in her skin on UE and LE)
Neuro: AOx2 disoriented to time, tremors ext's seem to have worsen exacerbated with movement
Psych: Calm Cooperative
78F with hx Obesity recent leg fx [facility] pAfib HFpEF HTN HLD DM adrenal insufficiency MAZARIEGOS Cirrhosis here with TME sepsis UTI
#� Sepsis, urinary source, resistant organism
IV fluids
IV abx (meropenem given allergy to PCN, tolerated meropenem in past)
Hold BP meds
Follow cultures NGTD
ID eval appreciated meropenem switched to fosfomycin given tremors possibly associated to meropenem
re-current UTI, family requested Urology eval
#Lactic acidosis persists possibly d/t poor clearance Liver dysfunction/cirrhosis
received multiple IVF bolus
since resolved
CT abd/pelvis w/ oral contrast only given santosh, evaluation for possible source persistent lactic acid elevation
CT (limited by motion) noted
-Minimal amount of left pleural fluid. Parenchymal opacity within the visualized lower lungs, most likely atelectasis (incentive spirometry ordered)
-calcified gallstones, No gross evidence to suggest cholecystitis
-Cirrhotic liver.
-Atrophic adrenal glands bilaterally
-Enlarged right renal pelvis and proximal to mid right ureter, with normal caliber distal right ureter, no convincing evidence for right ureteral calculus (as per urology's review of imaging, enlargement likely d/t Rt UPJ obstruction cogenital
abnormality no intervention required)
-Mild dilation of the common iliac arteries bilaterally. Tortuosity of the abdominal aorta with no evidence for abdominal aortic aneurysm.
-Moderate distention of the rectum with stool, transverse measures 6.5 cm. No convincing evidence for stercoral colitis. (once suppository 11/14 administered with subsequent moderate bowel movement noted)
-Moderate amount of subcutaneous edema. Not mentioned above, there is also a small moderate amount of presacral edema.
-Mild superior endplate depression of the T10, T11, T12, and L4 vertebral bodies. Age is uncertain, although these findings appear new since of bowel radiograph of July 10, 2012. Please correlate with any acute symptoms.
-Previous vertebroplasty involving L1, L2, and L3.
-Top normal lymph nodes in the portacaval region. There is an enlarged interaortocaval lymph node. These are nonspecific, and could be inflammatory or neoplastic. Statistically, these are probably more likely to be reactive inflammatory lymph nodes.
#� Adrenal insufficiency - chronic issue
Stress dose IV steroids tapered
#� Low Na, may be from decreased po and adrenal issues
Improved/resolved with IV steroids IVF NS
Cont to monitor
IVF since completed, steroid taper as above
#� SANTOSH resolved
Cr improved likely baseline 1.0-1.1
IVF completed
monitor kidney function
#Possible Left eye conjunctivitis
#blurry vision both eyes
-Maxitrol eye drop started 11/14
-monitor response
-ophthalmology eval requested
#Tremor ext's new onset unclear etiology
-Neuro eval appreciated likely physiologic tremor, CT head appreciated no acute abn's, checking for potential metabolic causes
#� Anemia - chronic, likely from chronic disease
H/H relatively stable at this time, some trickle down noted initial 11.9 down to 10.4 since trended up
No obvious signs of bleeding, will cont to monitor
#� Heart failure - chronic diastolic - appears euvolemic at this time
#� Chronic wounds - change dressings as needed
#� Cirrhosis - continue xifaxan lactulose
limited abd US appreciated no ascites
#� Essential HTN - antihypertensives on hold for now given low normotensive pressures
# Paroxysmal afib - continue eliquis.� No signs of bleeding
#Otherwise complex PMH with GERD, constipation, depression, hypothyroid
Continue usual home meds
Full code
Eliquis for DVTp
Stable for downgrade to IMU
Discussed with patient and her daughters Ethel and Maikel
I spent a total of 57 minutes with the patient or on the floor. More than 50% of this time involved counseling and coordination of care.
Anticipated Discharge: 24 - 48 hours
Subjective/Interval History
-
Date of Service: November 15, 2023
Seen and examined at bedside in mild distress due to back pain. tremors ext's appear to have worsen. Continues to endorses blurry vision bilateral. Itching left eye. Denies eye pain. Daughters Ethel and Maikel present during evaluation
Objective Data
-
Labs:
Laboratory Results
11/15/23
04:28
WBC 10.0
Hgb 10.8 L
Hct 32.5 L
Plt Count 108 L
Sodium 136
Potassium 4.2
Chloride 105
Carbon Dioxide 25
BUN 36 H
Creatinine 1.0
Glucose 135 H
Calcium 8.5
Vital Signs:
Vital Signs
Temp Pulse Resp BP Pulse Ox
98.0 F 72 15 137/73 97
11/15/23 03:55 11/15/23 07:00 11/15/23 07:00 11/15/23 06:00 11/15/23 07:00
I&O
11/14/23 11/15/23 11/16/23
06:59 06:59 06:59
Intake Total 2960 / 3040 1280 / 1280
Output Total 500 / 500 550 / 550
Balance 2460 / 9257 730 / 730
[2023-11-15] MEDS: CYTOMEL 5 MICROGRAM PO (08:18)
[2023-11-15] MEDS: TYLENOL 1000 MG PO ×2 (08:18→20:51)
[2023-11-15] MEDS: ELIQUIS 5 MG PO ×2 (08:18→20:52)
[2023-11-15] MEDS: PROTONIX 40 MG PO (08:18)
[2023-11-15] MEDS: PROZAC 20 MG PO (08:18)
[2023-11-15] MEDS: SOLU-CORTEF 50 MG IV ×2 (08:19→20:50)
[2023-11-15] MEDS: XIFAXAN 550 MG PO ×2 (08:20→20:51)
[2023-11-15] MEDS: [UNRECOGNIZED DRUG - OTHER] 1 DROP OPHTH ×4 (08:20→22:34)
[2023-11-15] MEDS: DUPHALAC/CHRONULAC 20 GRAMS PO ×2 (08:21→20:50)
[2023-11-15] MEDS: DESENEX/MITRAZOL/ZEASORB 1 APPLIC TOPICAL ×2 (08:22→20:49)
--- NOTE | 2023-11-15 08:39 | PTCARENOTE ---
patient received in bed at 0700. AAO x3 On 2L of oxygen via nasal canula. AAO x3. tremors noted. Incontinent of bowel and bladder. SR 90; BP via left upper arm 152/72 Map 95; RR 19; oral temp 98.5. All meds adm crushed with apple sauce . Am care
done pt repositioned . breakfast pending call mccall with reach.HOB elevated
--- NOTE | 2023-11-15 10:33 | PTOTSP ---
ST Dysphagia Follow up/Treatment Session
Mild/functional dysphagia; tolerating current diet without difficulty at this time
Pt received awake/alert at the bedside eating AM meal of regular solids/thin liquids. Pt's daughter present during session.
Self fed trials demo adequate oral access/containment, mildly prolonged bolus manipulation and bolus was orally cleared. Thin liquids by straw sip swallow appears prompt. No overt s/sx of aspiration observed. No further acute POLO COACH needs.
Recommend
1. Continue Regular solids / Thin liquids
2. Standard aspiration precautions and meal set up assistance
3. Meds whole/single placed in apple sauce
4. POLO COACH signing off please reconsult as needed
--- NOTE | 2023-11-15 11:26 | W.PN.ID1 ---
Date of Service
Date of Service: November 15, 2023
Today's Communication
- agree with meropenem - 3 day course - tomorrow AM is final dose
Assessment / Plan
ESBL Kleb UTI
Toxic Metabolic Encephalopathy - improving
H/o adrenal Insufficiency on chronic steroids
MAZARIEGOS cirrhosis
Recent L femur fixation
Reported hives with penicillin
- blood cultures x2 no growth to date
- 11/12 UA already with improved pyuria and urine culture no significant growth
- agree with meropenem - 3 day course - tomorrow AM is final dose
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
- follow up with GI and PCP; family requesting follow up with urology
Chief Complaint
-: UTI
Subjective / Review of Systems
remains afebrile
bp stable
no leukocytosis and cr stable
11/12 urine culture no significant growth
Vital Signs / Physical Exam
Vital Signs
Vital Signs
Temp Pulse Resp BP Pulse Ox
98.0 F 72 15 137/73 97
11/15/23 08:15 11/15/23 07:00 11/15/23 07:00 11/15/23 06:00 11/15/23 07:00
Physical Exam
Constitutional: No Acute Distress
Cardiovascular: Regular Rate and S1/S2; Negative Murmur or Rub
Pulmonary: Clear and Symmetric; Negative Wheezes or Rales
Gastrointestinal: Soft, Non Tender, Non Distended and Normal Bowel Sounds
Skin: Warm and Dry; Negative Rash or Jaundice
Objective Data
Lab Data
Lab Results
11/15/23 04:28
11/15/23 04:28
PT 36.7 Sec (11.4-14.6) H 11/12/23 21:08
INR 3.69 11/12/23 21:08
APTT 69.8 Sec (23.4-35.0) H 11/12/23 21:08
Estimated Creat Clear 46 ml/min 11/15/23 04:28
Lactic Acid 1.5 mmol/L (0.7-2.0) 11/14/23 03:55
Total Bilirubin 1.3 mg/dl (0.2-1.3) 11/13/23 03:39
AST 34 U/L (14-36) 11/13/23 03:39
ALT 16 U/L (0-35) 11/13/23 03:39
Alkaline Phosphatase 242 U/L (38-126) H 11/13/23 03:39
Most recent labs reviewed.
Micro Results:
11/12/23 17:06 Blood Culture - Preliminary
Blood/Venous No Growth in 48 hours- Final report to follow
11/12/23 16:48 Blood Culture - Preliminary
Blood/Venous No Growth in 48 hours- Final report to follow
11/12/23 19:14 Urine Culture - Final
Urine No Significant Growth
11/12/23 19:14 Influenza Types A & B (TRISTAN) - Final
Nasal Swab Negative for Influenza A & B, NAAT
Negative results must be combined with clinical observations
and patient history.
Nucleic Acid Amplification test (NAAT)performed on the
[employer] platform.
[2023-11-15] MEDS: LIDOCAINE 4% PATCH 1 PATCH TOPICAL (12:21)
--- NOTE | 2023-11-15 13:35 | CM ---
CM following re: discharge planning.
Reviewed pt's chart, met with pt and two pt's daughters at bedside.
PT and OT evaluations noted - SNF level of are recommended. In the beginning of the meeting with pt and her family, pt's daughter Ethel stated that her mother is not any close of being discharge and she is requested to discuss SNF options
tomorrow. CM explained to pt's daughter discharge planning process and pt's daughter stated she actually did not look seriously to find a new SNF. Pt's daughter expressed to me her negative feelings towards a few SNFs she had visited in the past.
After reviewing the list, pt's daughter preferred [facility] SNF or [facility].
A referral to [facility] and [facility] made. Awaiting for determination.
D/c plan: preferred SNF: [facility] or [facility].
CM will follow to assist pt with discharge to a preferred SNF.
--- NOTE | 2023-11-15 13:41 | CON.NEURO ---
Neuro Assessment/Plan
Assessment
IMPRESSIONS/RECOMMENDATIONS:
Abrupt onset bilateral upper and lower extremity involuntary movements
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 Tremor type is not consistent with parkinsonism and its onset is not consistent with essential tremor. The diffuse nature is also more suggestive of a physiologic tremor. Patient also has an underlying tremor
Plan
Check blood work for additional potential metabolic causes, check ammonia level
Provide thiamine
Check CT of head to ensure no severe large structural abnormalities producing symptomatology
Avoid sedative medications such as oxycodone
Consider rehabilitation evaluations
Consider as outpatient medications for memory stabilization
Consider as outpatient neuropsychological evaluations
Will continue to follow patient. Thank you.
Consultation
Order
Date of Consultation: 11/15/23
Requesting Provider: Hospitalist
Reason for Consult: Tremor
Subjective/Objective
Subjective Data
Date of Service: November 15, 2023
Right-Handed
Tremors during this admission, started 4 days ago, gradual.
The patient herself is confused and suggests that the tremors were taking place in her back. The patient daughter, who is a primary historian, suggested the patient's tremors are more diffuse.
The patient's daughter is also concerned about the patient's cognition which has been worsened in the form of reduced speech below. No known modifying factors. Patient has been described as not driving for the last 20 years and has had a troubled
hospital course due to severe metabolic dysfunction.
At the time of first admission, the patient was described as hypotensive and was subsequently diagnosed as having fever and sepsis. Patient had significant improvement after administration of antibiotics and provided care in the intensive care unit.
Objective Data
Vital Signs
Temp Pulse Resp BP Pulse Ox
36.6 C 80 20 150/73 97
11/15/23 12:50 11/15/23 12:00 11/15/23 12:00 11/15/23 12:00 11/15/23 12:00
Lab Results
11/15/23 04:28
11/15/23 04:28
PT 36.7 Sec (11.4-14.6) H 11/12/23 21:08
INR 3.69 11/12/23 21:08
APTT 69.8 Sec (23.4-35.0) H 11/12/23 21:08
Sodium 136 mmol/L (135-145) 11/15/23 04:28
Potassium 4.2 mmol/L (3.5-5.1) 11/15/23 04:28
BUN 36 mg/dl (7-17) H 11/15/23 04:28
Glucose 135 mg/dl (70-99) H 11/15/23 04:28
Calcium 8.5 mg/dl (8.4-10.2) 11/15/23 04:28
Phosphorus 3.1 mg/dl (2.5-4.5) 11/15/23 04:28
Patient Allergies
Penicillins Allergy (Verified 10/17/19 16:15)
Hives
Review of Systems
-
Unable to obtain full review of systems at this time due to: Dementia
History Source: Patient
All other systems: Reviewed and negative
Respiratory: Negative Trouble Breathing
Cardiac: Negative Chest Pain
Physical Exam
-
General: No Apparent Distress and Appears Stated Age
Eyes: OU Absent Papilledema, Round OU, [place] Conjunctivae and No Ptosis
HEENT: Anicteric and Moist Mucous Membranes
Neck: Full Range of Motion
Respiratory: No Dyspnea
Cardiac: No JVD
GI: Non-distended
Extremities: No Clubbing, No Cyanosis and No Edema
Psych: Negative Intact Judgement/Insight
Extended Neurological Exam
Mood & Affect: Mood Unremarkable and Affect Unremarkable
Attention Span & Concentration: Awake, Alert, Interactive and Unable to Perform 2 Step Request
Memory: Able to Recall (Month and year correctly), Reduced (For correct holiday order), Unable to Recall (Duration of time in hospital, duration of time of events in own life history) and Unable to Recall Personal History
Tremor: Hand Tremor Absent and Head Tremor Absent
Involuntary Movement: Other (Bilateral upper extremities small irregular movements very distally in bilateral hands and feet, not synkinetic)
Speech: Severely Reduced Output and Other (Mildly low amplitude)
Cranial Nerve II: Left Eye: Pupillary Reactivity Unremarkable, Pupillary Size Unremarkable and Visual Caicedo Grossly Intact
Cranial Nerve II: Right Eye: Pupillary Reactivity Unremarkable, Pupillary Size Unremarkable and Visual Caicedo Grossly Intact
Cranial Nerves III, IV, : Extraocular Movement: Grossly Intact
Cranial Nerve V: Facial Sensation: Unable to Assess
Cranial Nerve VII: Facial Symmetry: Normal Facial Symmetry
Cranial Nerve VIII: Hearing: Unremarkable Hearing to Normal Conversational Volume
Cranial Nerves IX, X: Palate Movement: Palate Elevation Symmetric
Cranial Nerve XI: Shoulder Shrug: Unremarkable
Cranial Nerve XII: Tongue Protusion: Midline
Muscle Strength, Overall: Full Throughout
Muscle Bulk & Tone: Bulk Unremarkable and Increased Tone
Pronator Drift: No Drift in Upper Extremities
Deep Tendon Reflexes: Absent Throughout
Cold Sensation: Unable to Assess
Vibration Sensation: Unable to Assess
Touch Sensation: Unremarkable
Coordination: [id number] Testing Unremarkable
Babinski Sign: Absent Bilaterally
Gait & Station: Unable to Assess
Data Reviewed
-
CT Head: Ordered
Labs: Ordered and Report Reviewed
Reviewed with: Physician, Nurse Practioner, Patient and Family
Old Records: Summarized
Medications
-
Active Medications
Generic Name Dose Route Start Last Admin
Trade Name Freq PRN Reason Stop Dose Admin
Acetaminophen 1,000 mg 11/12/23 20:38 11/15/23 08:18
Acetaminophen 500 Mg Tablet PO 12/10/23 20:37 1,000 mg
BID AIDEN Administration
Apixaban 5 mg 11/13/23 20:00 11/15/23 08:18
Apixaban (Eliquis) 5 Mg Tablet PO 12/11/23 19:59 5 mg
BID AIDEN Administration
Benzocaine/Menthol 1 lozenge 11/12/23 20:51
Benzocaine/Menthol Lozenge PO 12/10/23 20:50
Q2H PRN
SORE THROAT
Bisacodyl 10 mg 11/12/23 20:38
Bisacodyl 10 Mg Rectal Suppository RECTAL 12/10/23 20:37
DAILY PRN
constipation
Cyanocobalamin 1,000 mcg 11/14/23 08:00 11/14/23 08:15
Cyanocobalamin 1,000 Mcg Tablet PO 12/12/23 07:59 1,000 mcg
Q48H AIDEN Administration
Fluoxetine HCl 20 mg 11/13/23 08:00 11/15/23 08:18
Fluoxetine 20 Mg Capsule PO 12/11/23 07:59 20 mg
DAILY AIDEN Administration
Hydrocortisone Sodium Succinate 50 mg 11/15/23 20:00
Hydrocortisone Sodium Succinate 100 Mg/2 Ml Vial IV 12/13/23 19:59
Q12 AIDEN
Lactulose 20 grams 11/12/23 20:38 11/15/23 08:21
Lactulose Solution (20 Grams/30 Ml) 30 Ml Cup PO 12/10/23 20:37 20 grams
BID AIDEN Administration
Levothyroxine Sodium 100 mcg 11/13/23 06:30 11/15/23 05:18
Levothyroxine 100 Mcg Tablet PO 12/11/23 06:29 100 mcg
DAILY@0630 AIDEN Administration
Lidocaine 1 patch 11/15/23 09:15 11/15/23 12:21
Lidocaine 4% Topical Patch TOPICAL 12/13/23 09:14 1 patch
DAILY AIDEN Administration
Liothyronine Sodium 5 microgram 11/13/23 08:00 11/15/23 08:18
Liothyronine 5 Microgram Tablet PO 12/11/23 07:59 5 microgram
DAILY AIDEN Administration
Magnesium Hydroxide 30 ml 11/12/23 20:38
Milk Of Magnesia 30 Ml Cup PO 12/10/23 20:37
DAILY PRN
if no BM on day 4 of no BM
Meropenem 1,000 mg 11/13/23 06:00 11/15/23 05:19
Meropenem 1,000 Mg/20 Ml Vial IV 11/16/23 05:59 1,000 mg
Q12H AIDEN Administration
Miconazole Nitrate 0 applic 11/14/23 11:00 11/15/23 08:22
Miconazole Powder Bottle TOPICAL 12/12/23 10:59 1 applic
BID AIDEN Administration
Neomycin/Polymyxin/Dexamethasone 0 drop 11/14/23 10:10 11/15/23 12:21
Neomycin/Polymyxin/Dexamethasone (Ophthalmic Suspension) 5 Ml Bottle OPHTH 11/24/23 10:09 1 drop
QID AIDEN Administration
Ondansetron HCl 4 mg 11/12/23 20:38
Ondansetron 4 Mg Tablet PO 12/10/23 20:37
Q8HPRN PRN
nausea
Oxycodone HCl 5 mg 11/15/23 09:11
Oxycodone 5 Mg Regular Release Tablet PO 11/29/23 09:10
Q6HPRN PRN
moderate severe pain
Pantoprazole Sodium 40 mg 11/14/23 08:00 11/15/23 08:18
Pantoprazole 40 Mg Delayed Release Tablet PO 12/12/23 07:59 40 mg
DAILY AIDEN Administration
Patch Removal 0 patch 11/15/23 20:00
Remove Lidocaine Patch REMOVE 12/13/23 19:59
DAILY@2000 AIDEN
Rifaximin 550 mg 11/12/23 20:38 11/15/23 08:20
Rifaximin 550 Mg Tablet PO 550 mg
BID AIDEN Administration
Simethicone 160 mg 11/12/23 20:38
Simethicone 80 Mg Chewable Tablet PO 12/10/23 20:37
QIDPRN PRN
flatulence
Sodium Biphosphate/Sodium Phosphate 118 ml 11/12/23 20:38
Fleet Phosphate Enema (Adult) 135 Ml Bottle RECTAL 12/10/23 20:37
DAILYPRN PRN
constipation
Sodium Chloride 0 flush 11/12/23 21:00
Sodium Chloride 0.9% (Flush) Syringe IV 12/10/23 20:59
PER PROTOCOL AIDEN
Sterile Water 20 ml 11/13/23 06:00 11/15/23 05:19
Sterile Water For Injection 20 Ml Vial IV 12/11/23 05:59 20 ml
Q12H AIDEN Administration
Home Medications
Medication Instructions Recorded
apixaban 5 mg tablet (Eliquis) 5 mg PO BID Blood clot 10/17/19
prevention/tx
levothyroxine 100 mcg tablet 100 mcg PO DAILY Thyroid 10/17/19
liothyronine 5 mcg tablet 5 mcg PO DAILY Thyroid 10/17/19
ondansetron HCl 4 mg tablet 4 mg PO Q8HPRN PRN nausea 10/17/19
rifaximin 550 mg tablet (Xifaxan) 550 mg PO BID Liver Issues 10/17/19
acetaminophen 500 mg tablet 1,000 mg PO BID Pain 11/12/23
(Tylenol Extra Strength)
amlodipine 10 mg tablet 10 mg PO DAILY Blood Pressure 11/12/23
benzocaine 15 mg-menthol 3.6 mg 1 ruth mucous membrane Q2H PRN sore 11/12/23
lozenges (Cepacol Sore Throat throat
(benzocaine-menthol))
bisacodyl 10 mg rectal suppository 10 mg AK DAILY PRN constipation 11/12/23
(Dulcolax (bisacodyl))
bisoprolol fumarate 5 mg tablet 5 mg PO DAILY Heart disease 11/12/23
bumetanide 1 mg tablet 1 mg PO DAILY Fluid 11/12/23
Retention/Swelling
calcium carbonate 1,000 mg tablet 1,000 mg PO TID Supplement 11/12/23
cholecalciferol (vitamin D3) 125 125 mcg PO DAILY Supplement 11/12/23
mcg (5,000 unit) tablet
cyanocobalamin (vitamin B-12) 1,000 mcg PO Q48H@0800 Supplement 11/12/23
1,000 mcg tablet
fluoxetine 20 mg capsule 20 mg PO DAILY Mental 11/12/23
Health/Anxiety
hydralazine 25 mg tablet 25 mg PO QID Blood Pressure 11/12/23
lactulose 20 gram/30 mL oral 20 g PO BID Liver Issues 11/12/23
solution
levofloxacin 750 mg tablet 750 mg PO DAILY Infection 11/12/23
losartan 100 mg tablet 100 mg PO DAILY Blood Pressure 11/12/23
magnesium hydroxide 400 mg/5 mL 30 ml PO DAILY PRN if no BM on day 11/12/23
oral suspension (Milk of Magnesia) 4 of no BM
naloxone 4 mg/actuation nasal 4 mg intranasal Q3M PRN opioid 11/12/23
spray (Narcan) suspected overdose
pantoprazole 40 mg tablet,delayed 40 mg PO DAILY Gastrointestinal 11/12/23
release Issue
prednisone 10 mg tablet 10 mg PO .TAPER ADRENAL INSUFF 11/12/23
simethicone 80 mg chewable tablet 160 mg PO QIDPRN PRN flatulence 11/12/23
sodium phosphates 19 gram-7 118 ml [place] DAILYPRN PRN constipation 11/12/23
gram/118 mL enema (Fleet Enema)
wound dressings (Triad Wound 1 applic topical BID apply to left 11/12/23
Dressing paste) abd fold
Past History
Past History
ED Past Medical History: Arrthythmia (Atrial fibrillation), CHF, HTN, Hypercholesterolemia and Other (Pituitary cyst, Adrenal insufficiency, UTIs)
ED Past Surgical History: , Orthopedic and Tonsilectomy
Social History
Tobacco: Non-smoker
Alcohol: None
Drug: None
Personal:
Family History
Family History: Other (reviewed and non-contributory)
--- NOTE | 2023-11-15 14:22 | CONS.URO ---
Medical History
History of Present Illness
Patient was recently hospitalized elsewhere for a leg fracture discharged to [facility].� She was noted to have AMS there and was diagnosed with UTI 11/10 -- ESBL K pneumonia with full sensitivity to carbapenems and zosyn only - otherwise resistant to
tested isolates - she was stared on levaquin (later found to be resistant), blood cultures on arrival 11/12 no growth to date, a repeat urine culture 11/12 finalized negative.
2011: Staged right ureteroscopies by Dr Dillard for partial staghorn renal calculus
Past Medical History
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
Tonsilectomy liver cirrhosis (MAZARIEGOS))
Past Surgical History: Urological (two right ureteroscopies during 2011)
Allergies/Home Medications
Allergies
Allergy/AdvReac Type Severity Reaction Status Date / Time
Penicillins Allergy Hives Verified 10/17/19 16:15
Home Medications
Medication Instructions Recorded Confirmed Type
apixaban 5 mg tablet (Eliquis) 5 mg PO BID Blood clot 10/17/19 11/12/23 History
prevention/tx
levothyroxine 100 mcg tablet 100 mcg PO DAILY Thyroid 10/17/19 11/12/23 History
liothyronine 5 mcg tablet 5 mcg PO DAILY Thyroid 10/17/19 11/12/23 History
ondansetron HCl 4 mg tablet 4 mg PO Q8HPRN PRN nausea 10/17/19 11/12/23 History
rifaximin 550 mg tablet (Xifaxan) 550 mg PO BID Liver Issues 10/17/19 11/12/23 History
acetaminophen 500 mg tablet 1,000 mg PO BID Pain 11/12/23 11/12/23 History
(Tylenol Extra Strength)
amlodipine 10 mg tablet 10 mg PO DAILY Blood Pressure 11/12/23 11/12/23 History
benzocaine 15 mg-menthol 3.6 mg 1 ruth mucous membrane Q2H PRN sore 11/12/23 11/12/23 History
lozenges (Cepacol Sore Throat throat
(benzocaine-menthol))
bisacodyl 10 mg rectal suppository 10 mg FL DAILY PRN constipation 11/12/23 11/12/23 History
(Dulcolax (bisacodyl))
bisoprolol fumarate 5 mg tablet 5 mg PO DAILY Heart disease 11/12/23 11/12/23 History
bumetanide 1 mg tablet 1 mg PO DAILY Fluid 11/12/23 11/12/23 History
Retention/Swelling
calcium carbonate 1,000 mg tablet 1,000 mg PO TID Supplement 11/12/23 11/12/23 History
cholecalciferol (vitamin D3) 125 125 mcg PO DAILY Supplement 11/12/23 11/12/23 History
mcg (5,000 unit) tablet
cyanocobalamin (vitamin B-12) 1,000 mcg PO Q48H@0800 Supplement 11/12/23 11/12/23 History
1,000 mcg tablet
fluoxetine 20 mg capsule 20 mg PO DAILY Mental 11/12/23 11/12/23 History
Health/Anxiety
hydralazine 25 mg tablet 25 mg PO QID Blood Pressure 11/12/23 11/12/23 History
lactulose 20 gram/30 mL oral 20 g PO BID Liver Issues 11/12/23 11/12/23 History
solution
levofloxacin 750 mg tablet 750 mg PO DAILY Infection 11/12/23 11/12/23 History
losartan 100 mg tablet 100 mg PO DAILY Blood Pressure 11/12/23 11/12/23 History
magnesium hydroxide 400 mg/5 mL 30 ml PO DAILY PRN if no BM on day 11/12/23 11/12/23 History
oral suspension (Milk of Magnesia) 4 of no BM
naloxone 4 mg/actuation nasal 4 mg intranasal Q3M PRN opioid 11/12/23 11/12/23 History
spray (Narcan) suspected overdose
pantoprazole 40 mg tablet,delayed 40 mg PO DAILY Gastrointestinal 11/12/23 11/12/23 History
release Issue
prednisone 10 mg tablet 10 mg PO .TAPER ADRENAL INSUFF 11/12/23 11/12/23 History
simethicone 80 mg chewable tablet 160 mg PO QIDPRN PRN flatulence 11/12/23 11/12/23 History
sodium phosphates 19 gram-7 118 ml [place] DAILYPRN PRN constipation 11/12/23 11/12/23 History
gram/118 mL enema (Fleet Enema)
wound dressings (Triad Wound 1 applic topical BID apply to left 11/12/23 11/12/23 History
Dressing paste) abd fold
Physical Exam
Vital Signs
Vital Signs
Temp Pulse Resp BP Pulse Ox
97.8 F 80 20 150/73 97
11/15/23 12:50 11/15/23 12:00 11/15/23 12:00 11/15/23 12:00 11/15/23 12:00
Lab / Testing Results
Laboratory Results
11/15/23 04:28
11/15/23 04:28
Physical Exam
adult female seated upright in ICU bed
appears chronically ill
awake, NAD
Assessment / Plan
-
Imp:
ESBL Klebsiella UTI
no discernible urinary tract stones
proximal right ureter is mildly dilated above calcified iliac artery
Rec: no current indication for urosurgical intervention at this time
Data Reviewed
-
CT Scan: Image personally visualized and interpreted (moderately atrophic right kidney; proximal ureter is slightly dilated to level of calcified iliac vessel; no urinary tract stones)
Lab Data: Labs Reviewed (ESBL Klebsiella in urine)
Old Records: Reviewed
[2023-11-15 16:17] LABS: TSH Reflex To Free T4 < 0.02 uIU/ml (0.47-4.68)
[2023-11-15 16:45] LABS: Free T4 1.27 ng/dl (0.78-2.19)
[2023-11-15 16:50] LABS: Folate 6.1 ng/ml (2.76-20); Vitamin B12 > 1000 pg/ml (239-931)
--- NOTE | 2023-11-15 16:52 | PTCARENOTE ---
Spoke with Ethel on a phone ( daughter ). Ethel requesting to stop Merrem, she feels as if Merrem causing pt's tremors . Ethel was offered to discus with physician if it's castillo to sop Merrem due to recent UTI. Ethel does not wish to
continue Merrem and requesting to D/c Merrem . per current order pt will be taking to CT w/o contrast.
--- NOTE | 2023-11-15 16:53 | W.PN.UPDATE ---
Update Note
Progress Note Update
meropenem stopped at family request given tremors.
Has history of hives with penicillin
finish course with a dose of fosfomycin
[2023-11-15] MEDS: MONUROL 3 GM PO (17:46)
[2023-11-15] MEDS: VITAMIN B1 100 MG PO (17:55)
--- NOTE | 2023-11-15 18:58 | PTCARENOTE ---
patient in bed. BP 152/71 MAP 95; Sr 85. Afebrile ( see records) taking to head Ct results pending. pt alert to herself only disoriented to place and time . Incontinent of urine incontinent of bowel. Family (daughter ) refused Merrem . On 2L of
oxygen via nasal canula
[2023-11-15 21:40] LABS: Ammonia < 9 umol/L (9-30)
[2023-11-16] VITALS (10 sets, daily range): BP systolic 89–151; BP diastolic 53–77; BMI 37.3
--- NOTE | 2023-11-16 04:15 | DOWNTIME ---
There was a [employer] Downtime on 11/16/2023 from 0111 to 11/16/2023 at 0405. Downtime documentation of patient's care, including medication administrations, has been reconciled in the electronic record per guidelines. Refer to the
patient's paper chart under the miscellaneous tab to see printed paper medication records and downtime forms.
[2023-11-16] MEDS: SYNTHROID 100 MCG PO (05:16)
[2023-11-16 05:17] LABS: Hematocrit 32.9 % (37.0-47.0); Hemoglobin 10.7 g/dL (12.0-16.0); Mean Corp Hgb Conc. 32.5 g/dL (33.0-37.0); Mean Corpuscular Volume 98.5 fL (81.0-99.0); Mean Platelet Volume 10.8 fL (7.4-10.4); Platelet Count 104 10^3/uL (130-400); Red Blood Cell Count 3.34 10^6/uL (4.20-5.40); Red Cell Dist. Width 16.7 % (11.5-14.5); White Blood Cell Count 7.2 10^3/uL (4.8-10.8)
--- NOTE | 2023-11-16 05:36 | PTCARENOTE ---
Pt resting comfortably overnight. VSS. Alert to self. Confused at times. Slow speech. Tremors present. NSR on tele monitor. POX 97% on 2Lnc. No BMs. Voiding via purewick. Meds administered crushed in applesauce without difficulty.
[2023-11-16 05:43] LABS: Blood Urea Nitrogen 28 mg/dl (7-17); Calcium 8.3 mg/dl (8.4-10.2); Carbon Dioxide 28 mmol/L (22-30); Chloride 110 mmol/L (98-107); Estimated Creatinine Clearance 59 ml/min; Glucose 120 mg/dl (70-99); Magnesium 2.4 mg/dl (1.6-2.3); Phosphorus 2.9 mg/dl (2.5-4.5); Potassium 4.2 mmol/L (3.5-5.1); Sodium 138 mmol/L (135-145); eGFR > 60.00
--- NOTE | 2023-11-16 07:14 | W.PN.HOSP.TC ---
Today's Communication/Plan
-
monitor off abx
cont PT/OT
steroid taper
Downgrade
Assessment / Plan
Assessment / Plan
Physical Exam
General: Well Developed, Well Nourished, No Apparent Distress, Comfortable and Obese
HEENT: [place] Conjunctivae, Nose Appears Normal and Ears Appear Normal
Respiratory: Clear and Decreased Breath Sounds
Cardiac: S1/S2, Regular Rhythm faint heart sounds
GI: Soft, Non Tender and distended vs obesity
Musculoskeletal: No Clubbing, No Cyanosis and No Edema
Skin: Warm, Dry and Rash (several breaks in her skin on UE and LE)
Neuro: Sleeping but arousable no tremors noted at rest
Psych: Calm Cooperative
78F with hx Obesity recent leg fx [facility] pAfib HFpEF HTN HLD DM adrenal insufficiency MAZARIEGOS Cirrhosis here with TME sepsis UTI
#� Sepsis, urinary source, resistant organism
IV fluids completed
Follow cultures NGTD
ID eval appreciated meropenem switched to fosfomycin given tremors possibly associated to meropenem, 3 days abx treatment completed as per ID
re-current UTI, Urology eval requested as per family's request
#Lactic acidosis persists possibly d/t poor clearance Liver dysfunction/cirrhosis
received multiple IVF bolus
since resolved
CT abd/pelvis w/ oral contrast only given santosh, evaluation for possible source persistent lactic acid elevation
CT (limited by motion) noted
-Minimal amount of left pleural fluid. Parenchymal opacity within the visualized lower lungs, most likely atelectasis (incentive spirometry ordered)
-calcified gallstones, No gross evidence to suggest cholecystitis
-Cirrhotic liver.
-Atrophic adrenal glands bilaterally
-Enlarged right renal pelvis and proximal to mid right ureter, with normal caliber distal right ureter, no convincing evidence for right ureteral calculus (as per urology's review of imaging, enlargement likely d/t Rt UPJ obstruction cogenital
abnormality no intervention required)
-Mild dilation of the common iliac arteries bilaterally. Tortuosity of the abdominal aorta with no evidence for abdominal aortic aneurysm.
-Moderate distention of the rectum with stool, transverse measures 6.5 cm. No convincing evidence for stercoral colitis. (once suppository 11/14 administered with subsequent moderate bowel movement noted)
-Moderate amount of subcutaneous edema. Not mentioned above, there is also a small moderate amount of presacral edema.
-Mild superior endplate depression of the T10, T11, T12, and L4 vertebral bodies. Age is uncertain, although these findings appear new since of bowel radiograph of July 10, 2012. Please correlate with any acute symptoms.
-Previous vertebroplasty involving L1, L2, and L3.
-Top normal lymph nodes in the portacaval region. There is an enlarged interaortocaval lymph node. These are nonspecific, and could be inflammatory or neoplastic. Statistically, these are probably more likely to be reactive inflammatory lymph nodes.
#� Adrenal insufficiency - chronic issue
Stress dose IV steroids tapered
#� Low Na, may be from decreased po and adrenal issues
Improved/resolved with IV steroids IVF NS
Cont to monitor
IVF since completed, steroid taper as above
#� SANTOSH resolved
Cr improved likely baseline 1.0-1.1
IVF completed
monitor kidney function
#blurry vision both eyes, left eye injection, possible conjunctivitis
-Maxitrol eye drop started 11/14
-monitor response
-ophthalmology eval appreciated no acute abn's outpatient follow up recommended
#Tremor ext's new onset unclear etiology
-Neuro eval appreciated likely physiologic tremor, CT head appreciated no acute abn's, checking for other potential metabolic causes
#� Anemia - chronic, likely from chronic disease
H/H relatively stable at this time, some trickle down noted initial 11.9 down to 10.4 since trended up
No obvious signs of bleeding, will cont to monitor
#� Heart failure - chronic diastolic - appears euvolemic at this time
#� Chronic wounds - change dressings as needed
#� Cirrhosis - continue xifaxan lactulose
limited abd US appreciated no ascites
#� Essential HTN - antihypertensives on hold for now given low normotensive pressures
# Paroxysmal afib - continue eliquis.� No signs of bleeding
#Hypothyroidism
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
-cont thyroid supplementation
#Otherwise complex PMH with GERD, constipation, depression
Continue usual home meds
Full code
Eliquis for DVTp
Stable for downgrade
Discussed with patient and her daughters Ethel and Maikel
I spent a total of 52 minutes with the patient or on the floor. More than 50% of this time involved counseling and coordination of care.
Anticipated Discharge: 24 - 48 hours
Subjective/Interval History
-
Date of Service: November 16, 2023
Seen and examined at bedside in no acute distress resting comfortably in bed sleeping. Easily arousable. No significant tremors twitching ext's noted at this time.
Objective Data
-
Labs:
Laboratory Results
11/16/23
05:04
WBC 7.2
Hgb 10.7 L
Hct 32.9 L
Plt Count 104 L
Sodium 138
Potassium 4.2
Chloride 110 H
Carbon Dioxide 28
BUN 28 H
Creatinine 0.8
Glucose 120 H
Calcium 8.3 L
Vital Signs:
Vital Signs
Temp Pulse Resp BP Pulse Ox
98.1 F 79 16 134/62 95
11/16/23 07:01 11/16/23 06:00 11/16/23 06:00 11/16/23 06:00 11/16/23 06:00
I&O
11/15/23 11/16/23 11/17/23
06:59 06:59 06:59
Intake Total 1280 / 1280 240 / 240
Output Total 550 / 550 950 / 950
Balance 730 / 730 -710 / -710
--- NOTE | 2023-11-16 09:02 | W.PN.NEURO.1 ---
Today's Communication / Plan
-
Provide thiamine
Discontinue vitamin B12 which is not being utilized according to blood work
Avoid sedative medications such as oxycodone
rehabilitation evaluations
Consider as outpatient medications for memory stabilization
Consider as outpatient neuropsychological evaluations
Neuro Assessment/Plan
Assessment
IMPRESSIONS/RECOMMENDATIONS:
Abrupt onset bilateral upper and lower extremity involuntary movements
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 Tremor type is not consistent with parkinsonism and its onset is not consistent with essential tremor. The diffuse nature is also more suggestive of a physiologic tremor. Patient also has an underlying tremor
CT of head was unremarkable
Plan
Provide thiamine
Discontinue vitamin B12 which is not being utilized according to blood work
Avoid sedative medications such as oxycodone
rehabilitation evaluations
Consider as outpatient medications for memory stabilization
Consider as outpatient neuropsychological evaluations
Will continue to follow as outpatient.
Subjective/Objective
Subjective Data
Date of Service: November 16, 2023
Objective Data
Vital Signs
Temp Pulse Resp BP Pulse Ox
36.7 C 79 16 134/62 95
11/16/23 07:01 11/16/23 06:00 11/16/23 06:00 11/16/23 06:00 11/16/23 06:00
Lab Results
11/16/23 05:04
11/16/23 05:04
PT 36.7 Sec (11.4-14.6) H 11/12/23 21:08
INR 3.69 11/12/23 21:08
APTT 69.8 Sec (23.4-35.0) H 11/12/23 21:08
Sodium 138 mmol/L (135-145) 11/16/23 05:04
Potassium 4.2 mmol/L (3.5-5.1) 11/16/23 05:04
BUN 28 mg/dl (7-17) H 11/16/23 05:04
Glucose 120 mg/dl (70-99) H 11/16/23 05:04
Calcium 8.3 mg/dl (8.4-10.2) L 11/16/23 05:04
Phosphorus 2.9 mg/dl (2.5-4.5) 11/16/23 05:04
Vitamin B12 > 1000 pg/ml (239-931) H 11/15/23 04:28
Patient Allergies
Penicillins Allergy (Verified 10/17/19 16:15)
Hives
Past History
Past History
ED Past Medical History: Arrthythmia (Atrial fibrillation), CHF, HTN, Hypercholesterolemia and Other (Pituitary cyst, Adrenal insufficiency, UTIs)
ED Past Surgical History: , Orthopedic and Tonsilectomy
Social History
Tobacco: Non-smoker
Alcohol: None
Drug: None
Personal:
Family History
Family History: Other (reviewed and non-contributory)
Medications
-
Medications:
Generic Name Dose Route Start Last Admin
Trade Name Freq PRN Reason Stop Dose Admin
Acetaminophen 1,000 mg 11/12/23 20:38 11/15/23 20:51
Acetaminophen 500 Mg Tablet PO 12/10/23 20:37 1,000 mg
BID AIDEN Administration
Apixaban 5 mg 11/13/23 20:00 11/15/23 20:52
Apixaban (Eliquis) 5 Mg Tablet PO 12/11/23 19:59 5 mg
BID AIDEN Administration
Benzocaine/Menthol 1 lozenge 11/12/23 20:51
Benzocaine/Menthol Lozenge PO 12/10/23 20:50
Q2H PRN
SORE THROAT
Bisacodyl 10 mg 11/12/23 20:38
Bisacodyl 10 Mg Rectal Suppository RECTAL 12/10/23 20:37
DAILY PRN
constipation
Cyanocobalamin 1,000 mcg 11/14/23 08:00 11/14/23 08:15
Cyanocobalamin 1,000 Mcg Tablet PO 12/12/23 07:59 1,000 mcg
Q48H AIDEN Administration
Fluoxetine HCl 20 mg 11/13/23 08:00 11/15/23 08:18
Fluoxetine 20 Mg Capsule PO 12/11/23 07:59 20 mg
DAILY AIDEN Administration
Hydrocortisone Sodium Succinate 50 mg 11/15/23 20:00 11/15/23 20:50
Hydrocortisone Sodium Succinate 100 Mg/2 Ml Vial IV 12/13/23 19:59 50 mg
Q12 AIDEN Administration
Lactulose 20 grams 11/12/23 20:38 11/15/23 20:50
Lactulose Solution (20 Grams/30 Ml) 30 Ml Cup PO 12/10/23 20:37 20 grams
BID AIDEN Administration
Levothyroxine Sodium 100 mcg 11/13/23 06:30 11/16/23 05:16
Levothyroxine 100 Mcg Tablet PO 12/11/23 06:29 100 mcg
DAILY@0630 AIDEN Administration
Lidocaine 1 patch 11/15/23 09:15 11/15/23 12:21
Lidocaine 4% Topical Patch TOPICAL 12/13/23 09:14 1 patch
DAILY AIDEN Administration
Liothyronine Sodium 5 microgram 11/13/23 08:00 11/15/23 08:18
Liothyronine 5 Microgram Tablet PO 12/11/23 07:59 5 microgram
DAILY AIDEN Administration
Magnesium Hydroxide 30 ml 11/12/23 20:38
Milk Of Magnesia 30 Ml Cup PO 12/10/23 20:37
DAILY PRN
if no BM on day 4 of no BM
Miconazole Nitrate 0 applic 11/14/23 11:00 11/15/23 20:49
Miconazole Powder Bottle TOPICAL 12/12/23 10:59 1 applic
BID AIDEN Administration
Neomycin/Polymyxin/Dexamethasone 0 drop 11/14/23 10:10 11/15/23 22:34
Neomycin/Polymyxin/Dexamethasone (Ophthalmic Suspension) 5 Ml Bottle OPHTH 11/24/23 10:09 1 drop
QID AIDEN Administration
Ondansetron HCl 4 mg 11/12/23 20:38
Ondansetron 4 Mg Tablet PO 12/10/23 20:37
Q8HPRN PRN
nausea
Pantoprazole Sodium 40 mg 11/14/23 08:00 11/15/23 08:18
Pantoprazole 40 Mg Delayed Release Tablet PO 12/12/23 07:59 40 mg
DAILY AIDEN Administration
Patch Removal 0 patch 11/15/23 20:00 11/15/23 20:52
Remove Lidocaine Patch REMOVE 12/13/23 19:59 1 patch
DAILY@2000 AIDEN Administration
Rifaximin 550 mg 11/12/23 20:38 11/15/23 20:51
Rifaximin 550 Mg Tablet PO 550 mg
BID AIDEN Administration
Simethicone 160 mg 11/12/23 20:38
Simethicone 80 Mg Chewable Tablet PO 12/10/23 20:37
QIDPRN PRN
flatulence
Sodium Biphosphate/Sodium Phosphate 118 ml 11/12/23 20:38
Fleet Phosphate Enema (Adult) 135 Ml Bottle RECTAL 12/10/23 20:37
DAILYPRN PRN
constipation
Sodium Chloride 0 flush 11/12/23 21:00
Sodium Chloride 0.9% (Flush) Syringe IV 12/10/23 20:59
PER PROTOCOL AIDEN
Thiamine HCl 100 mg 11/15/23 16:00 11/15/23 17:55
Thiamine 100 Mg Tablet PO 11/17/23 08:01 100 mg
DAILY IADEN Administration
--- NOTE | 2023-11-16 09:26 | W.PN.ID1 ---
Date of Service
Date of Service: November 16, 2023
Today's Communication
- gave a dose of fosfomycin last night as family objected to further meropenem
- continue prescription eyeglass maker rifaxamin
- follow up with GI and PCP; family requesting follow up with urology
ID service will no longer actively follow this patient please recall for further questions
Assessment / Plan
ESBL Kleb UTI
Toxic Metabolic Encephalopathy - improving
H/o adrenal Insufficiency on chronic steroids
MAZARIEGOS cirrhosis
Recent L femur fixation
Reported hives with penicillin
- blood cultures x2 no growth to date
- 11/12 UA already with improved pyuria and urine culture no significant growth
- gave a dose of fosfomycin last night as family objected to further meropenem
- continue prescription eyeglass maker rifaxamin
- follow up with GI and PCP; family requesting follow up with urology
Chief Complaint
-: UTI
Subjective / Review of Systems
afebrile
bp stable
without leukocytosis
cr stable
11/12 blood cultures remain no growth
tremor ongoing
no compalints
Vital Signs / Physical Exam
Vital Signs
Vital Signs
Temp Pulse Resp BP Pulse Ox
98.1 F 79 16 134/62 95
11/16/23 07:01 11/16/23 06:00 11/16/23 06:00 11/16/23 06:00 11/16/23 06:00
Physical Exam
Constitutional: No Acute Distress and Chronically Ill
Cardiovascular: Regular Rate and S1/S2; Negative Murmur or Rub
Pulmonary: Clear and Symmetric; Negative Wheezes or Rales
Gastrointestinal: Soft, Non Tender, Non Distended and Normal Bowel Sounds
Genito-Urinary: Clear Urine; Negative Suprapubic Tenderness
Skin: Warm and Dry; Negative Rash or Jaundice
Objective Data
Lab Data
Lab Results
11/16/23 05:04
11/16/23 05:04
PT 36.7 Sec (11.4-14.6) H 11/12/23 21:08
INR 3.69 11/12/23 21:08
APTT 69.8 Sec (23.4-35.0) H 11/12/23 21:08
Estimated Creat Clear 59 ml/min 11/16/23 05:04
Lactic Acid 1.5 mmol/L (0.7-2.0) 11/14/23 03:55
Total Bilirubin 1.3 mg/dl (0.2-1.3) 11/13/23 03:39
AST 34 U/L (14-36) 11/13/23 03:39
ALT 16 U/L (0-35) 11/13/23 03:39
Alkaline Phosphatase 242 U/L (38-126) H 11/13/23 03:39
Most recent labs reviewed.
Micro Results:
11/12/23 17:06 Blood Culture - Preliminary
Blood/Venous No Growth in 72 hours- Final report to follow
11/12/23 16:48 Blood Culture - Preliminary
Blood/Venous No Growth in 72 hours- Final report to follow
11/12/23 19:14 Urine Culture - Final
Urine No Significant Growth
11/12/23 19:14 Influenza Types A & B (TRISTAN) - Final
Nasal Swab Negative for Influenza A & B, NAAT
Negative results must be combined with clinical observations
and patient history.
Nucleic Acid Amplification test (NAAT)performed on the
[employer] platform.
[2023-11-16] MEDS: ELIQUIS 5 MG PO ×2 (10:08→20:49)
[2023-11-16] MEDS: PROTONIX 40 MG PO (10:09)
[2023-11-16] MEDS: CYTOMEL 5 MICROGRAM PO (10:09)
[2023-11-16] MEDS: TYLENOL PO ×2 (10:09→10:12)
[2023-11-16] MEDS: XIFAXAN 550 MG PO ×2 (10:09→20:49)
[2023-11-16] MEDS: [UNRECOGNIZED DRUG - OTHER] 1 DROP OPHTH ×4 (10:09→21:10)
[2023-11-16] MEDS: VITAMIN B-12 1000 MCG PO (10:09)
[2023-11-16] MEDS: VITAMIN B1 100 MG PO (10:09)
[2023-11-16] MEDS: LIDOCAINE 4% PATCH 1 PATCH TOPICAL (10:09)
[2023-11-16] MEDS: PROZAC 20 MG PO (10:09)
[2023-11-16] MEDS: DUPHALAC/CHRONULAC 20 GRAMS PO ×2 (10:09→20:49)
[2023-11-16] MEDS: SOLU-CORTEF 50 MG IV ×2 (10:10→20:50)
[2023-11-16] MEDS: DESENEX/MITRAZOL/ZEASORB 1 APPLIC TOPICAL ×2 (10:11→20:50)
--- NOTE | 2023-11-16 14:30 | CM ---
CM reviewed chart- ADC 1-2 days
Plan to transfer out of ICU
SNF continues to be recommended by therapy
Updated clinicals sent to [facility] and [facility] via [facility]
Pt will require auth for SNF placement
Discharge Disposition- SNF pending auth
--- NOTE | 2023-11-16 20:20 | PTCARENOTE ---
Received patient in bed, oriented to self, disoriented to place, time, and situation. Denying pain, following commands. Normal sinus, 70s-80s, BP 80s-90s/50s-60s. +2 edema in bilateral hands, +2 generalized anasarca. Palpable pedal and radial
pulses. Lung sounds diminished, on 2 liters nasal cannula, saturating 96%. Incontinent, purewick in place collecting yellow urine. Abdomen soft, round, obese. Left hip approximated, antifungal powder applied under breast. Skin bruised throughout
arms. PIVs WNL. Hourly rounding and patient safety checks ongoing.
[2023-11-16] MEDS: TYLENOL 1000 MG PO (20:49)
[2023-11-17] VITALS (15 sets, daily range): BP systolic 86–177; BP diastolic 56–95; PULSE 76–80; O2SAT 96–98; BMI 37.5
[2023-11-17 03:20] LABS: Hematocrit 30.7 % (37.0-47.0); Hemoglobin 10.4 g/dL (12.0-16.0); Mean Corp Hgb Conc. 33.9 g/dL (33.0-37.0); Mean Corpuscular Hgb 31.5 pg (27.0-31.0); Mean Platelet Volume 10.5 fL (7.4-10.4); Platelet Count 108 10^3/uL (130-400); Red Cell Dist. Width 16.3 % (11.5-14.5); White Blood Cell Count 8.6 10^3/uL (4.8-10.8)
[2023-11-17 03:51] LABS: Blood Urea Nitrogen 23 mg/dl (7-17); Calcium 8.3 mg/dl (8.4-10.2); Carbon Dioxide 28 mmol/L (22-30); Chloride 109 mmol/L (98-107); Estimated Creatinine Clearance 67 ml/min; Glucose 113 mg/dl (70-99); Magnesium 2.3 mg/dl (1.6-2.3); Phosphorus 2.8 mg/dl (2.5-4.5); Potassium 4.2 mmol/L (3.5-5.1); Sodium 137 mmol/L (135-145); eGFR > 60.00
[2023-11-17] MEDS: SYNTHROID 100 MCG PO (06:11)
--- NOTE | 2023-11-17 06:44 | W.PN.HOSP.TC ---
Today's Communication/Plan
-
cont PT/OT
steroid tapered to home prednisone 5 mg daily
Downgrade to Tele
resume home amlodipine bisoprolol with holding parameters
monitor I/O daily weights
fall precautions
Assessment / Plan
Assessment / Plan
Physical Exam
General: Well Developed, Well Nourished, No Apparent Distress, Comfortable and Obese
HEENT: [place] Conjunctivae, Nose Appears Normal and Ears Appear Normal, mild injected sclera b/l
Respiratory: Clear and Decreased Breath Sounds
Cardiac: S1/S2, Regular Rhythm faint heart sounds
GI: Soft, Non Tender and distended vs obesity
Musculoskeletal: No Clubbing, No Cyanosis and No Edema
Skin: Warm, Dry and Rash (several breaks in her skin on UE and LE)
Neuro: Awake alert conversant though voice does seem weak, slightly tremulous with activity, no tremors noted at rest sleeping
Psych: Calm Cooperative
78F with hx Obesity recent leg fx [facility] pAfib HFpEF HTN HLD DM adrenal insufficiency MAZARIEGOS Cirrhosis here with TME sepsis UTI
#� Sepsis, urinary source, resistant organism
IV fluids completed
Follow cultures NGTD
ID eval appreciated meropenem switched to fosfomycin given tremors possibly associated to meropenem, 3 days abx treatment completed as per ID
re-current UTI, Urology eval requested as per family's request
#Lactic acidosis persists possibly d/t poor clearance Liver dysfunction/cirrhosis
received multiple IVF bolus
since resolved
CT abd/pelvis w/ oral contrast only given santosh, evaluation for possible source persistent lactic acid elevation
CT (limited by motion) noted
-Minimal amount of left pleural fluid. Parenchymal opacity within the visualized lower lungs, most likely atelectasis (incentive spirometry ordered)
-calcified gallstones, No gross evidence to suggest cholecystitis
-Cirrhotic liver.
-Atrophic adrenal glands bilaterally
-Enlarged right renal pelvis and proximal to mid right ureter, with normal caliber distal right ureter, no convincing evidence for right ureteral calculus (as per urology's review of imaging, enlargement likely d/t Rt UPJ obstruction cogenital
abnormality no intervention required)
-Mild dilation of the common iliac arteries bilaterally. Tortuosity of the abdominal aorta with no evidence for abdominal aortic aneurysm.
-Moderate distention of the rectum with stool, transverse measures 6.5 cm. No convincing evidence for stercoral colitis. (once suppository 11/14 administered with subsequent moderate bowel movement noted)
-Moderate amount of subcutaneous edema. Not mentioned above, there is also a small moderate amount of presacral edema.
-Mild superior endplate depression of the T10, T11, T12, and L4 vertebral bodies. Age is uncertain, although these findings appear new since of bowel radiograph of July 10, 2012. Please correlate with any acute symptoms.
-Previous vertebroplasty involving L1, L2, and L3.
-Top normal lymph nodes in the portacaval region. There is an enlarged interaortocaval lymph node. These are nonspecific, and could be inflammatory or neoplastic. Statistically, these are probably more likely to be reactive inflammatory lymph nodes.
#� Adrenal insufficiency - chronic issue
Stress dose IV steroids tapered back to home prednisone regimen 5 mg daily
#� Low Na, may be from decreased po and adrenal issues
Improved/resolved with IV steroids IVF NS
Cont to monitor
IVF since completed, steroid taper as above
#� SANTOSH resolved
Cr improved likely baseline 1.0-1.1
IVF completed
monitor kidney function
#blurry vision both eyes, left eye injection, possible conjunctivitis
-Maxitrol eye drop started 11/14
-monitor response
-ophthalmology eval appreciated no acute abn's outpatient follow up recommended
#Tremor ext's new onset unclear etiology
-Neuro eval appreciated likely physiologic tremor, CT head appreciated no acute abn's, checking for other potential metabolic causes
#� Essential HTN - antihypertensives held for low normotensive pressures
resumed home amlodipine at reduced dosage 5 mg daily holding parameters
home bisoprolol resumed with holding parameters
continuing hold losartan hydralazine for now
#� Anemia - chronic, likely from chronic disease
H/H relatively stable at this time, some trickle down noted initial 11.9 down to 10.4 since trended up
No obvious signs of bleeding, will cont to monitor
#� Heart failure - chronic diastolic - appears euvolemic at this time
home bisoprolol resumed
weight down
holding bumex for now given poor oral intake
#� Chronic wounds - change dressings as needed
#� Cirrhosis - continue xifaxan lactulose
limited abd US appreciated no ascites
# Paroxysmal afib - continue eliquis.� No signs of bleeding
#Hypothyroidism
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
-cont thyroid supplementation
#Otherwise complex PMH with GERD, constipation, depression
Continue usual home meds
Full code
Eliquis for DVTp
gi ppx Protonix
Stable for downgrade Tele
Discussed with patient and her daughters Ethel and Maikel
I spent a total of 52 minutes with the patient or on the floor. More than 50% of this time involved counseling and coordination of care.
Anticipated Discharge: 24 - 48 hours
Subjective/Interval History
-
Date of Service: November 17, 2023
Patient appears improved. More awake talkative. Tremors improved not quit resolved more present with activity, noted resolved while sleeping, at rest.
Objective Data
-
Labs:
Laboratory Results
11/17/23
03:02
WBC 8.6
Hgb 10.4 L
Hct 30.7 L
Plt Count 108 L
Sodium 137
Potassium 4.2
Chloride 109 H
Carbon Dioxide 28
BUN 23 H
Creatinine 0.7
Glucose 113 H
Calcium 8.3 L
Vital Signs:
Vital Signs
Temp Pulse Resp BP Pulse Ox
97.7 F 86 17 168/81 98
11/17/23 04:32 11/17/23 06:00 11/17/23 06:00 11/17/23 04:00 11/17/23 06:00
I&O
11/15/23 11/16/23 11/17/23
06:59 06:59 06:59
Intake Total 1280 / 1280 240 / 240 690 / 690
Output Total 550 / 550 950 / 950 1250 / 1250
Balance 730 / 730 -710 / -710 -560 / -560
--- NOTE | 2023-11-17 08:00 | PTCARENOTE ---
Received patient from nights shift. Patient is AAOX3, eyes open today, much more conversant. States she feels 'much better'. able to move all extremities remains generally weak. Patient is SR on monitor, +2 anasarca, pitting in hands. Patient
is on 2L nasal cannula, lungs clear and diminished throughout. Patient is using purewick, was incontinent of stool this morning. Patient has MASD in skin folds, open area in right groin. Ecchymosis in bilateral upper extremities. patient is non
weight baring on left leg due to femur fx per family/[employer] run. Will review orders, bed alarm on, call mccall within reach.
[2023-11-17] MEDS: ELIQUIS 5 MG PO ×2 (08:28→20:21)
[2023-11-17] MEDS: TYLENOL 1000 MG PO ×2 (08:28→20:21)
[2023-11-17] MEDS: XIFAXAN 550 MG PO ×2 (08:28→20:21)
[2023-11-17] MEDS: PROTONIX 40 MG PO (08:28)
[2023-11-17] MEDS: DELTASONE 5 MG PO (08:29)
[2023-11-17] MEDS: VITAMIN B1 100 MG PO (08:29)
[2023-11-17] MEDS: DUPHALAC/CHRONULAC 20 GRAMS PO ×2 (08:29→20:20)
[2023-11-17] MEDS: CYTOMEL 5 MICROGRAM PO (08:29)
[2023-11-17] MEDS: PROZAC 20 MG PO (08:29)
[2023-11-17] MEDS: DESENEX/MITRAZOL/ZEASORB 1 APPLIC TOPICAL ×2 (08:30→20:20)
[2023-11-17] MEDS: LIDOCAINE 4% PATCH 1 PATCH TOPICAL (08:31)
[2023-11-17] MEDS: [UNRECOGNIZED DRUG - OTHER] 1 DROP OPHTH ×4 (08:31→21:57)
[2023-11-17] MEDS: NORVASC 5 MG PO (11:33)
[2023-11-17] MEDS: ZEBETA 5 MG PO (11:33)
--- NOTE | 2023-11-17 11:54 | PTCARENOTE ---
Report given to Lalit RN, patient will be transferred to [id number].
--- NOTE | 2023-11-17 13:50 | CM ---
CM following re: discharge planning.
Reviewed pt's chart, met with pt and daughter Ethel at bedside. Per Rounds meeting, pt is downgraded from ICU level of care.
Both pt and her daughter are aware that both [facility] SNF and [facility] still reviewing a referral and it is a possibility that 2 SNFs might offer a bed. pt's daughter started she will decide then.
CM spoke to [facility] interior design coordinator Duc and she stated she did not review a referral yet.
Awaiting for [facility] and [facility] SNF determinations.
D/C plan: preferred SNF: [facility] or [facility].
CM will follow to assist pt with discharge to a preferred SNF.
--- NOTE | 2023-11-17 14:02 | PTCARENOTE ---
pt awake oriented to self and place. forgetful. slow to respond. states no pain or sob. 2lnc breath sounds diminished. left eye sclera red. sacrum red lotion applied. inc of urine purewick in place.
[2023-11-18 03:26] VITALS: BP 165/79
[2023-11-18] MEDS: SYNTHROID 100 MCG PO (05:59)
[2023-11-18 06:00] VITALS: BMI 38.4
[2023-11-18 06:05] LABS: Hematocrit 31.8 % (37.0-47.0); Hemoglobin 10.6 g/dL (12.0-16.0); Mean Corp Hgb Conc. 33.3 g/dL (33.0-37.0); Mean Corpuscular Volume 96.1 fL (81.0-99.0); Mean Platelet Volume 10.5 fL (7.4-10.4); Platelet Count 109 10^3/uL (130-400); Red Blood Cell Count 3.31 10^6/uL (4.20-5.40); Red Cell Dist. Width 16.1 % (11.5-14.5); White Blood Cell Count 9.9 10^3/uL (4.8-10.8)
[2023-11-18 06:36] LABS: Blood Urea Nitrogen 19 mg/dl (7-17); Calcium 8.3 mg/dl (8.4-10.2); Carbon Dioxide 32 mmol/L (22-30); Chloride 100 mmol/L (98-107); Estimated Creatinine Clearance 68 ml/min; Glucose 72 mg/dl (70-99); Magnesium 2.1 mg/dl (1.6-2.3); Phosphorus 2.3 mg/dl (2.5-4.5); Potassium 3.4 mmol/L (3.5-5.1); Sodium 134 mmol/L (135-145); eGFR > 60.00
[2023-11-18 07:00] VITALS: BP 172/95
--- NOTE | 2023-11-18 07:35 | W.PN.HOSP.TC ---
Today's Communication/Plan
-
Blood pressure control
home losartan resumed reduced dose
cont PT OT
vitamin c supplementation.
replete electrolytes
Assessment / Plan
Assessment / Plan
Physical Exam
General: Well Developed, Well Nourished, No Apparent Distress, Comfortable and Obese
HEENT: [place] Conjunctivae, Nose Appears Normal and Ears Appear Normal, mild injected sclera b/l
Respiratory: Clear and Decreased Breath Sounds
Cardiac: S1/S2, Regular Rhythm faint heart sounds
GI: Soft, Non Tender and distended vs obesity
Musculoskeletal: No Clubbing, No Cyanosis and No Edema
Skin: Warm, Dry and Rash (several breaks in her skin on UE and LE)
Neuro: Awake alert conversant though voice does seem weak, slightly tremulous with activity, no tremors noted at rest sleeping
Psych: Calm Cooperative
78F with hx Obesity recent leg fx [facility] pAfib HFpEF HTN HLD DM adrenal insufficiency MAZARIEGOS Cirrhosis here with TME sepsis UTI
#� Sepsis, urinary source, resistant organism
IV fluids completed
Follow cultures NGTD
ID eval appreciated meropenem switched to fosfomycin given tremors possibly associated to meropenem, 3 days abx treatment completed as per ID
re-current UTI, Urology eval requested as per family's request
#Lactic acidosis persists possibly d/t poor clearance Liver dysfunction/cirrhosis
received multiple IVF bolus
since resolved
CT abd/pelvis w/ oral contrast only given santosh, evaluation for possible source persistent lactic acid elevation
CT (limited by motion) noted
-Minimal amount of left pleural fluid. Parenchymal opacity within the visualized lower lungs, most likely atelectasis (incentive spirometry ordered)
-calcified gallstones, No gross evidence to suggest cholecystitis
-Cirrhotic liver.
-Atrophic adrenal glands bilaterally
-Enlarged right renal pelvis and proximal to mid right ureter, with normal caliber distal right ureter, no convincing evidence for right ureteral calculus (as per urology's review of imaging, enlargement likely d/t Rt UPJ obstruction cogenital
abnormality no intervention required)
-Mild dilation of the common iliac arteries bilaterally. Tortuosity of the abdominal aorta with no evidence for abdominal aortic aneurysm.
-Moderate distention of the rectum with stool, transverse measures 6.5 cm. No convincing evidence for stercoral colitis. (once suppository 11/14 administered with subsequent moderate bowel movement noted)
-Moderate amount of subcutaneous edema. Not mentioned above, there is also a small moderate amount of presacral edema.
-Mild superior endplate depression of the T10, T11, T12, and L4 vertebral bodies. Age is uncertain, although these findings appear new since of bowel radiograph of July 10, 2012. Please correlate with any acute symptoms.
-Previous vertebroplasty involving L1, L2, and L3.
-Top normal lymph nodes in the portacaval region. There is an enlarged interaortocaval lymph node. These are nonspecific, and could be inflammatory or neoplastic. Statistically, these are probably more likely to be reactive inflammatory lymph nodes.
#� Adrenal insufficiency - chronic issue
Stress dose IV steroids tapered back to home prednisone regimen 5 mg daily
#� Low Na, may be from decreased po and adrenal issues
Improved/resolved with IV steroids IVF NS
Cont to monitor
IVF since completed, steroid taper as above
#hypokalemia
#hypophosphatemia
monitor and replete as necessary
#� SANTOSH resolved
Cr improved likely baseline 1.0-1.1
IVF completed
monitor kidney function
#blurry vision both eyes, left eye injection, possible conjunctivitis
-Maxitrol eye drop started 11/14
-monitor response
-ophthalmology eval appreciated no acute abn's outpatient follow up recommended
#Tremor ext's new onset unclear etiology
-Neuro eval appreciated likely physiologic tremor, CT head appreciated no acute abn's, checking for other potential metabolic causes
#� Essential HTN - antihypertensives held for low normotensive pressures
resumed home amlodipine at reduced dosage 5 mg daily holding parameters
home bisoprolol resumed with holding parameters
home losartan resumed reduced dose
continuing hold hydralazine for now
#� Anemia - chronic, likely from chronic disease
H/H relatively stable at this time, some trickle down noted initial 11.9 down to 10.4 since trended up
No obvious signs of bleeding, will cont to monitor
#� Heart failure - chronic diastolic - appears euvolemic at this time
home bisoprolol resumed
weight down
holding bumex for now given poor oral intake
#� Chronic wounds - change dressings as needed
#� Cirrhosis - continue xifaxan lactulose
limited abd US appreciated no ascites
# Paroxysmal afib - continue eliquis.� No signs of bleeding
#Hypothyroidism
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
-cont thyroid supplementation
#Otherwise complex PMH with GERD, constipation, depression
Continue usual home meds
Full code
Eliquis for DVTp
gi ppx Protonix
Stable for downgrade Tele
Discussed with patient and his daughter Ethel
I spent a total of 52 minutes with the patient or on the floor. More than 50% of this time involved counseling and coordination of care.
Anticipated Discharge: 24 - 48 hours
Subjective/Interval History
-
Date of Service: November 18, 2023
Objective Data
-
Labs:
Laboratory Results
11/18/23
05:12
WBC 9.9
Hgb 10.6 L
Hct 31.8 L
Plt Count 109 L
Sodium 134 L
Potassium 3.4 L
Chloride 100
Carbon Dioxide 32 H
BUN 19 H
Creatinine 0.7
Glucose 72
Calcium 8.3 L
Vital Signs:
Vital Signs
Temp Pulse Resp BP Pulse Ox
98.5 F 67 20 165/79 94
11/18/23 03:26 11/18/23 03:26 11/18/23 03:26 11/18/23 03:26 11/18/23 03:26
I&O
11/17/23 11/18/23 11/19/23
06:59 06:59 06:59
Intake Total 690 / 690 700 / 700
Output Total 1250 / 1250
Balance -560 / -560 700 / 700
[2023-11-18] MEDS: COZAAR 50 MG PO (08:54)
[2023-11-18] MEDS: PROZAC 20 MG PO (08:54)
[2023-11-18] MEDS: DUPHALAC/CHRONULAC 20 GRAMS PO (08:54)
[2023-11-18] MEDS: DELTASONE 5 MG PO (08:54)
[2023-11-18] MEDS: CYTOMEL 5 MICROGRAM PO (08:57)
[2023-11-18] MEDS: PROTONIX 40 MG PO (08:57)
[2023-11-18] MEDS: LIDOCAINE 4% PATCH 1 PATCH TOPICAL (08:57)
[2023-11-18] MEDS: ZEBETA 5 MG PO (08:57)
[2023-11-18] MEDS: XIFAXAN 550 MG PO ×2 (08:58→20:14)
[2023-11-18] MEDS: [UNRECOGNIZED DRUG - OTHER] 1 DROP OPHTH ×4 (08:58→21:46)
[2023-11-18] MEDS: NORVASC 5 MG PO (08:58)
[2023-11-18] MEDS: VITAMIN B-12 1000 MCG PO (08:58)
[2023-11-18] MEDS: TYLENOL 1000 MG PO ×2 (08:58→20:10)
[2023-11-18] MEDS: ELIQUIS 5 MG PO ×2 (08:58→20:14)
[2023-11-18] MEDS: POTASSIUM PHOSPHATE 259.090899999999976 MEQ IV (08:59)
[2023-11-18] MEDS: DESENEX/MITRAZOL/ZEASORB 1 APPLIC TOPICAL ×2 (08:59→20:15)
[2023-11-18 11:00] VITALS: BP 131/65
[2023-11-18 15:00] VITALS: BP 126/63
--- NOTE | 2023-11-18 15:24 | CM ---
Called [facility] for update on status of referral. All inquiries were answered. Also responded through [facility]. Patient is NWB until 11/24/23. Awaiting return call.
[2023-11-18 20:09] VITALS: BP 137/62
[2023-11-18] MEDS: DUPHALAC/CHRONULAC PO (20:15)
[2023-11-18 23:05] VITALS: BP 159/79
[2023-11-19] MEDS: TYLENOL 1000 MG PO ×3 (00:56→19:32)
[2023-11-19 04:00] VITALS: BP 163/82
[2023-11-19] MEDS: SYNTHROID 100 MCG PO (05:50)
[2023-11-19 06:00] VITALS: BMI 40.5
[2023-11-19 07:30] VITALS: BP 162/80
--- NOTE | 2023-11-19 07:36 | W.PN.HOSP.TC ---
Today's Communication/Plan
-
bumex resumed IV instead of PO for now
daily weight I/O
wean O2 supplementation as tolerated
maxitrol completed
Blood Pressure control
Assessment / Plan
Assessment / Plan
Physical Exam
General: Well Developed, Well Nourished, No Apparent Distress, Comfortable and Obese
HEENT: [place] Conjunctivae, Nose Appears Normal and Ears Appear Normal, mild injected sclera b/l
Respiratory: Decreased Breath Sounds, faint bibasilar crackles
Cardiac: S1/S2, Regular Rhythm faint heart sounds
GI: Soft, Non Tender and distended vs obesity
Musculoskeletal: No Clubbing, No Cyanosis and No Edema
Skin: Warm, Dry and Rash (several breaks in her skin on UE)
Neuro: Awake alert conversant though voice does seem weak, slightly tremulous with activity, no tremors noted at rest sleeping
Psych: Calm Cooperative
78F with hx Obesity recent leg fx [facility] p[facility] HFpEF HTN HLD DM adrenal insufficiency MAZARIEGOS Cirrhosis here with TME sepsis UTI
#� Sepsis, urinary source, resistant organism
IV fluids completed
Follow cultures NGTD
ID eval appreciated meropenem switched to fosfomycin given tremors possibly associated to meropenem, 3 days abx treatment completed as per ID
Urology Eval Appreciated
#Lactic acidosis persists possibly d/t poor clearance Liver dysfunction/cirrhosis
received multiple IVF bolus
since resolved
CT (limited by motion) noted
-Minimal amount of left pleural fluid. Parenchymal opacity within the visualized lower lungs, most likely atelectasis (incentive spirometry ordered)
-calcified gallstones, No gross evidence to suggest cholecystitis
-Cirrhotic liver.
-Atrophic adrenal glands bilaterally
-Enlarged right renal pelvis and proximal to mid right ureter, with normal caliber distal right ureter, no convincing evidence for right ureteral calculus (as per urology's review of imaging, enlargement likely d/t Rt UPJ obstruction cogenital
abnormality no intervention required)
-Mild dilation of the common iliac arteries bilaterally. Tortuosity of the abdominal aorta with no evidence for abdominal aortic aneurysm.
-Moderate distention of the rectum with stool, transverse measures 6.5 cm. No convincing evidence for stercoral colitis. (once suppository 11/14 administered with subsequent moderate bowel movement noted)
-Moderate amount of subcutaneous edema. Not mentioned above, there is also a small moderate amount of presacral edema.
-Mild superior endplate depression of the T10, T11, T12, and L4 vertebral bodies. Age is uncertain, although these findings appear new since of bowel radiograph of July 10, 2012. Please correlate with any acute symptoms.
-Previous vertebroplasty involving L1, L2, and L3.
-Top normal lymph nodes in the portacaval region. There is an enlarged interaortocaval lymph node. These are nonspecific, and could be inflammatory or neoplastic. Statistically, these are probably more likely to be reactive inflammatory lymph nodes.
#� Adrenal insufficiency - chronic issue
Stress dose IV steroids tapered back to home prednisone regimen 5 mg daily
#� Low Na, may be from decreased po and adrenal issues
Improved/resolved with IV steroids IVF NS
Cont to monitor
IVF since completed, steroid taper as above
#hypokalemia
#hypophosphatemia
monitor and replete as necessary
#� SANTOSH resolved
Cr improved likely baseline 1.0-1.1
IVF completed
monitor kidney function
#blurry vision both eyes, left eye injection, possible conjunctivitis resolved
-Maxitrol eye drop treatment completed
-monitor response
-ophthalmology eval appreciated no acute abn's outpatient follow up recommended
#Tremor ext's new onset unclear etiology
-Neuro eval appreciated likely physiologic tremor, CT head appreciated no acute abn's, checking for other potential metabolic causes
#� Essential HTN - antihypertensives held for low normotensive pressures
resumed home amlodipine at reduced dosage 5 mg daily holding parameters
home bisoprolol resumed with holding parameters
home losartan resumed reduced dose
continuing hold hydralazine for now
#� Anemia - chronic, likely from chronic disease
H&H stable
No obvious signs of bleeding, will cont to monitor
#� Heart failure - chronic diastolic
#Acute on Chronic HFpEF 11/19
home bisoprolol resumed
weight up
Acute Hypoxic respiratory Insufficiency/failure
holding bumex for now given poor oral intake
#� Chronic wounds - change dressings as needed
#� Cirrhosis - continue xifaxan lactulose
limited abd US appreciated no ascites
# Paroxysmal afib - continue eliquis.� No signs of bleeding
#Hypothyroidism
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
-cont thyroid supplementation
#Otherwise complex PMH with GERD, constipation, depression
Continue usual home meds
Full code
Eliquis for DVTp
gi ppx Protonix
Discussed with patient and her daughter Ethel
I spent a total of 55 minutes with the patient or on the floor. More than 50% of this time involved counseling and coordination of care.
Anticipated Discharge: 24 - 48 hours
Subjective/Interval History
-
Date of Service: November 19, 2023
No acute distress sitting up comfortably bed. Significant weight gain noted. requiring 2L, mild bibasilar crackles noted on auscultation. Patient's mental status otherwise improved more alert and fluent speech. Daughter reports patient near
baseline mental status
Objective Data
-
Labs:
Laboratory Results
11/19/23
07:21
WBC Pending
Hgb Pending
Hct Pending
Plt Count Pending
Sodium Pending
Potassium Pending
Chloride Pending
Carbon Dioxide Pending
BUN Pending
Creatinine Pending
Glucose Pending
Calcium Pending
Vital Signs:
Vital Signs
Temp Pulse Resp BP Pulse Ox
98.6 F 68 16 163/82 98
11/19/23 04:00 11/19/23 04:00 11/19/23 04:00 11/19/23 04:00 11/19/23 04:00
I&O
11/18/23 11/19/23 11/20/23
06:59 06:59 06:59
Intake Total 700 / 700 300 / 300
Balance 700 / 700 300 / 300
[2023-11-19] MEDS: NORVASC 5 MG PO (08:03)
[2023-11-19] MEDS: ZEBETA 5 MG PO (08:03)
[2023-11-19] MEDS: ELIQUIS 5 MG PO ×2 (08:03→19:35)
[2023-11-19] MEDS: DELTASONE 5 MG PO (08:03)
[2023-11-19] MEDS: DUPHALAC/CHRONULAC 20 GRAMS PO ×2 (08:03→19:31)
[2023-11-19] MEDS: LIDOCAINE 4% PATCH 1 PATCH TOPICAL (08:04)
[2023-11-19] MEDS: VITAMIN C 250 MG PO (08:05)
[2023-11-19] MEDS: COZAAR 50 MG PO (08:05)
[2023-11-19] MEDS: PROTONIX 40 MG PO (08:05)
[2023-11-19] MEDS: [UNRECOGNIZED DRUG - OTHER] 1 DROP OPHTH ×4 (08:05→21:18)
[2023-11-19] MEDS: CYTOMEL 5 MICROGRAM PO (08:05)
[2023-11-19] MEDS: XIFAXAN 550 MG PO ×2 (08:05→19:52)
[2023-11-19] MEDS: PROZAC 20 MG PO (08:05)
[2023-11-19] MEDS: DESENEX/MITRAZOL/ZEASORB 1 APPLIC TOPICAL ×2 (08:07→19:44)
[2023-11-19 08:20] LABS: Hematocrit 32.4 % (37.0-47.0); Hemoglobin 10.7 g/dL (12.0-16.0); Mean Platelet Volume 10.6 fL (7.4-10.4); Platelet Count 101 10^3/uL (130-400); Red Blood Cell Count 3.34 10^6/uL (4.20-5.40); Red Cell Dist. Width 16.3 % (11.5-14.5); White Blood Cell Count 9.1 10^3/uL (4.8-10.8)
[2023-11-19 09:02] LABS: Blood Urea Nitrogen 18 mg/dl (7-17); Calcium 8.1 mg/dl (8.4-10.2); Carbon Dioxide 32 mmol/L (22-30); Chloride 98 mmol/L (98-107); Estimated Creatinine Clearance 82 ml/min; Glucose 72 mg/dl (70-99); Phosphorus 3.2 mg/dl (2.5-4.5); Potassium 3.9 mmol/L (3.5-5.1); Sodium 133 mmol/L (135-145); eGFR > 60.00
[2023-11-19] MEDS: BUMEX 1 MG IV (09:09)
[2023-11-19 11:44] VITALS: BP 129/73
[2023-11-19 16:14] VITALS: BP 121/54
[2023-11-19 20:32] VITALS: BP 124/91
[2023-11-20] VITALS (8 sets, daily range): BP systolic 99–173; BP diastolic 48–85; PULSE 80; O2SAT 96; BMI 38.5
[2023-11-20] MEDS: TYLENOL 1000 MG PO ×3 (00:38→20:42)
[2023-11-20] MEDS: SYNTHROID 100 MCG PO (05:41)
[2023-11-20 06:04] LABS: Hematocrit 31.9 % (37.0-47.0); Hemoglobin 10.5 g/dL (12.0-16.0); Mean Corp Hgb Conc. 32.9 g/dL (33.0-37.0); Mean Corpuscular Hgb 31.9 pg (27.0-31.0); Mean Platelet Volume 10.5 fL (7.4-10.4); Platelet Count 116 10^3/uL (130-400); Red Blood Cell Count 3.29 10^6/uL (4.20-5.40); Red Cell Dist. Width 16.1 % (11.5-14.5); White Blood Cell Count 9.1 10^3/uL (4.8-10.8)
[2023-11-20 06:37] LABS: Blood Urea Nitrogen 16 mg/dl (7-17); Calcium 8.1 mg/dl (8.4-10.2); Carbon Dioxide 36 mmol/L (22-30); Chloride 96 mmol/L (98-107); Estimated Creatinine Clearance 68 ml/min; Glucose 81 mg/dl (70-99); Phosphorus 3.1 mg/dl (2.5-4.5); Potassium 3.8 mmol/L (3.5-5.1); Sodium 134 mmol/L (135-145); eGFR > 60.00
--- NOTE | 2023-11-20 07:19 | W.PN.HOSP.TC ---
Today's Communication/Plan
-
IV bumex to transition to PO tomorrow
Routine labs discontinued
Medically stable for discharge SNF rehab pending placement
CD images of current hospitalization to be provided to family/daughter Ethel
Assessment / Plan
Assessment / Plan
Physical Exam
General: Well Developed, Well Nourished, No Apparent Distress, Comfortable and Obese
HEENT: [place] Conjunctivae, Nose Appears Normal and Ears Appear Normal, mild injected sclera b/l
Respiratory: Decreased Breath Sounds, faint bibasilar crackles
Cardiac: S1/S2, Regular Rhythm faint heart sounds
GI: Soft, Non Tender and distended vs obesity
Musculoskeletal: No Clubbing, No Cyanosis and No Edema
Skin: Warm, Dry and Rash (several breaks/bruising in her skin on UE likely combination poor wound healing due to steroids poor nutrition)
Neuro: Awake Alert Conversant
Psych: Calm Cooperative
78F with hx Obesity recent leg fx [facility] HFpEF HTN HLD DM adrenal insufficiency MAZARIEGOS Cirrhosis here with TME sepsis UTI
#� Sepsis, urinary source, resistant organism
IV fluids completed
Follow cultures NGTD
ID eval appreciated meropenem switched to fosfomycin given tremors possibly associated to meropenem, 3 days abx treatment completed as per ID
Urology Eval Appreciated
#Lactic acidosis persists possibly d/t poor clearance Liver dysfunction/cirrhosis
received multiple IVF bolus
since resolved
CT (limited by motion) noted
-Minimal amount of left pleural fluid. Parenchymal opacity within the visualized lower lungs, most likely atelectasis (incentive spirometry ordered)
-calcified gallstones, No gross evidence to suggest cholecystitis
-Cirrhotic liver.
-Atrophic adrenal glands bilaterally
-Enlarged right renal pelvis and proximal to mid right ureter, with normal caliber distal right ureter, no convincing evidence for right ureteral calculus (as per urology's review of imaging, enlargement likely d/t Rt UPJ obstruction cogenital
abnormality no intervention required)
-Mild dilation of the common iliac arteries bilaterally. Tortuosity of the abdominal aorta with no evidence for abdominal aortic aneurysm.
-Moderate distention of the rectum with stool, transverse measures 6.5 cm. No convincing evidence for stercoral colitis. (once suppository 11/14 administered with subsequent moderate bowel movement noted)
-Moderate amount of subcutaneous edema. Not mentioned above, there is also a small moderate amount of presacral edema.
-Mild superior endplate depression of the T10, T11, T12, and L4 vertebral bodies. Age is uncertain, although these findings appear new since of bowel radiograph of July 10, 2012. Please correlate with any acute symptoms.
-Previous vertebroplasty involving L1, L2, and L3.
-Top normal lymph nodes in the portacaval region. There is an enlarged interaortocaval lymph node. These are nonspecific, and could be inflammatory or neoplastic. Statistically, these are probably more likely to be reactive inflammatory lymph nodes.
#� Adrenal insufficiency - chronic issue
Stress dose IV steroids tapered back to home prednisone regimen 5 mg daily
#� Low Na, may be from decreased po and adrenal issues
Improved/resolved with IV steroids IVF NS
Cont to monitor
IVF since completed, steroid taper as above
#hypokalemia
#hypophosphatemia
monitor and replete as necessary
#� SANTOSH resolved
Cr improved likely baseline 1.0-1.1
IVF completed
monitor kidney function
#blurry vision both eyes, left eye injection, possible conjunctivitis resolved
-Maxitrol eye drop treatment completed
-monitor response
-ophthalmology eval appreciated no acute abn's outpatient follow up recommended
#Tremor ext's new onset unclear etiology
-Neuro eval appreciated likely physiologic tremor, CT head appreciated no acute abn's, checking for other potential metabolic causes
#� Essential HTN - antihypertensives held for low normotensive pressures
resumed home amlodipine at reduced dosage 5 mg daily holding parameters
home bisoprolol resumed with holding parameters
home losartan resumed
continuing hold hydralazine for now
#� Anemia - chronic, likely from chronic disease
H&H stable
#� Heart failure - chronic diastolic
#Acute on Chronic HFpEF 11/19
home bisoprolol resumed
weight up
Acute Hypoxic respiratory Insufficiency/failure
[correction to prior documentation] bumex was restarted as IV 11/19
weight since improved, weaned of oxygen supplementation
bumex to transition back to PO 11/21 home dose 1 mg daily
#� Chronic wounds - change dressings as needed
# upper ext poor wound healing
-limit lab draws as possible
-Vitamin C supplementation started
-Multivitamin
#� Cirrhosis - continue xifaxan lactulose
limited abd US appreciated no ascites
# Paroxysmal afib - continue eliquis.� No signs of bleeding
#Hypothyroidism
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
-cont thyroid supplementation
#Otherwise complex PMH with GERD, constipation, depression
Continue usual home meds
Full code
Eliquis for DVTp
gi ppx Protonix
Medically stable for discharge SNF rehab with outpatient follow up recommendations. CD of images during this hospitalization to be provided to family on discharge.
Discussed with patient and her daughter Ethel
I spent a total of 57 minutes with the patient or on the floor. More than 50% of this time involved counseling and coordination of care.
Anticipated Discharge: Within 24 hours
Subjective/Interval History
-
Date of Service: November 20, 2023
Weaned off oxygen supplementation sitting up comfortably in bed. Patient reports feeling well. Mental status near baseline as per family.
Objective Data
-
Labs:
Laboratory Results
11/20/23
05:26
WBC 9.1
Hgb 10.5 L
Hct 31.9 L
Plt Count 116 L
Sodium 134 L
Potassium 3.8
Chloride 96 L
Carbon Dioxide 36 H
BUN 16
Creatinine 0.7
Glucose 81
Calcium 8.1 L
Vital Signs:
Vital Signs
Temp Pulse Resp BP Pulse Ox
98.6 F 70 15 169/82 94
11/20/23 04:08 11/20/23 04:08 11/20/23 04:08 11/20/23 04:08 11/20/23 05:49
I&O
11/19/23 11/20/23 11/21/23
06:59 06:59 06:59
Intake Total 780 / 780 1560 / 1560
Output Total 500 / 500 2900 / 2900
Balance 280 / 280 -1340 / -1340
[2023-11-20] MEDS: LIDOCAINE 4% PATCH 1 PATCH TOPICAL (08:51)
[2023-11-20] MEDS: VITAMIN C 250 MG PO (08:51)
[2023-11-20] MEDS: PROZAC 20 MG PO (08:51)
[2023-11-20] MEDS: DUPHALAC/CHRONULAC 20 GRAMS PO (08:51)
[2023-11-20] MEDS: CYTOMEL 5 MICROGRAM PO (08:51)
[2023-11-20] MEDS: DELTASONE 5 MG PO (08:51)
[2023-11-20] MEDS: ZEBETA 5 MG PO (08:52)
[2023-11-20] MEDS: XIFAXAN 550 MG PO ×2 (08:52→20:42)
[2023-11-20] MEDS: PROTONIX 40 MG PO (08:52)
[2023-11-20] MEDS: VITAMIN B-12 1000 MCG PO (08:52)
[2023-11-20] MEDS: COZAAR 100 MG PO (08:52)
[2023-11-20] MEDS: ELIQUIS 5 MG PO ×2 (08:53→20:42)
[2023-11-20] MEDS: NORVASC 5 MG PO (08:54)
[2023-11-20] MEDS: BUMEX 1 MG IV (08:54)
[2023-11-20] MEDS: DESENEX/MITRAZOL/ZEASORB 1 APPLIC TOPICAL ×2 (09:04→20:42)
[2023-11-20] MEDS: COZAAR PO (09:14)
[2023-11-20] MEDS: DUPHALAC/CHRONULAC PO ×2 (20:42→20:48)
[2023-11-20] MEDS: REFRESH EYE DROPS (PF) 1 DROPS OPHTH (23:23)
[2023-11-21 03:10] VITALS: BP 176/79
[2023-11-21] MEDS: SYNTHROID 100 MCG PO (05:56)
[2023-11-21 06:00] VITALS: BMI 36.8
[2023-11-21 07:02] VITALS: BP 149/78
--- NOTE | 2023-11-21 07:43 | W.PN.HOSP.TC ---
Today's Communication/Plan
-
Continue current management. Discharge planning in progress
Assessment / Plan
Assessment / Plan
Physical Exam
General: Well Developed, Well Nourished, No Apparent Distress, Comfortable and Obese
HEENT: [place] Conjunctivae, Nose Appears Normal and Ears Appear Normal, mild injected sclera b/l
Respiratory: Decreased Breath Sounds, faint bibasilar crackles
Cardiac: S1/S2, Regular Rhythm faint heart sounds
GI: Soft, Non Tender and distended vs obesity
Musculoskeletal: No Clubbing, No Cyanosis and No Edema
Skin: Warm, Dry and Rash (several breaks/bruising in her skin on UE likely combination poor wound healing due to steroids poor nutrition)
Neuro: Awake Alert Conversant
Psych: Calm Cooperative
78F with hx Obesity recent leg fx [facility] p[facility] HFpEF HTN HLD DM adrenal insufficiency MAZARIEGOS Cirrhosis here with TME sepsis UTI
#� Sepsis, urinary source, resistant organism
IV fluids completed
Follow cultures NGTD
ID eval appreciated meropenem switched to fosfomycin given tremors possibly associated to meropenem, 3 days abx treatment completed as per ID
Urology Eval Appreciated
#Lactic acidosis persists possibly d/t poor clearance Liver dysfunction/cirrhosis
received multiple IVF bolus
since resolved
CT (limited by motion) noted
-Minimal amount of left pleural fluid. Parenchymal opacity within the visualized lower lungs, most likely atelectasis (incentive spirometry ordered)
-calcified gallstones, No gross evidence to suggest cholecystitis
-Cirrhotic liver.
-Atrophic adrenal glands bilaterally
-Enlarged right renal pelvis and proximal to mid right ureter, with normal caliber distal right ureter, no convincing evidence for right ureteral calculus (as per urology's review of imaging, enlargement likely d/t Rt UPJ obstruction cogenital
abnormality no intervention required)
-Mild dilation of the common iliac arteries bilaterally. Tortuosity of the abdominal aorta with no evidence for abdominal aortic aneurysm.
-Moderate distention of the rectum with stool, transverse measures 6.5 cm. No convincing evidence for stercoral colitis. (once suppository 11/14 administered with subsequent moderate bowel movement noted)
-Moderate amount of subcutaneous edema. Not mentioned above, there is also a small moderate amount of presacral edema.
-Mild superior endplate depression of the T10, T11, T12, and L4 vertebral bodies. Age is uncertain, although these findings appear new since of bowel radiograph of July 10, 2012. Please correlate with any acute symptoms.
-Previous vertebroplasty involving L1, L2, and L3.
-Top normal lymph nodes in the portacaval region. There is an enlarged interaortocaval lymph node. These are nonspecific, and could be inflammatory or neoplastic. Statistically, these are probably more likely to be reactive inflammatory lymph nodes.
#� Adrenal insufficiency - chronic issue
Stress dose IV steroids tapered back to home prednisone regimen 5 mg daily
#� Low Na, may be from decreased po and adrenal issues
Improved/resolved with IV steroids IVF NS
Cont to monitor
IVF since completed, steroid taper as above
#hypokalemia
#hypophosphatemia
monitor and replete as necessary
#� SANTOSH resolved
Cr improved likely baseline 1.0-1.1
IVF completed
monitor kidney function
#blurry vision both eyes, left eye injection, possible conjunctivitis resolved
-Maxitrol eye drop treatment completed
-monitor response
-ophthalmology eval appreciated no acute abn's outpatient follow up recommended
#Tremor ext's new onset unclear etiology
-Neuro eval appreciated likely physiologic tremor, CT head appreciated no acute abn's, checking for other potential metabolic causes
#� Essential HTN - antihypertensives held for low normotensive pressures
resumed home amlodipine at reduced dosage 5 mg daily holding parameters
home bisoprolol resumed with holding parameters
home losartan resumed
continuing hold hydralazine for now
#� Anemia - chronic, likely from chronic disease
H&H stable
#� Heart failure - chronic diastolic
#Acute on Chronic HFpEF 11/19
home bisoprolol resumed
weight up
Acute Hypoxic respiratory Insufficiency/failure
[correction to prior documentation] bumex was restarted as IV 11/19
weight since improved, weaned of oxygen supplementation
bumex to transition back to PO 11/21 home dose 1 mg daily
#� Chronic wounds - change dressings as needed
# upper ext poor wound healing
-limit lab draws as possible
-Vitamin C supplementation started
-Multivitamin
#� Cirrhosis - continue xifaxan lactulose
limited abd US appreciated no ascites
# Paroxysmal afib - continue eliquis.� No signs of bleeding
#Hypothyroidism
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
-cont thyroid supplementation
#Otherwise complex PMH with GERD, constipation, depression
Continue usual home meds
Full code
Eliquis for DVTp
gi ppx Protonix
Medically stable for discharge SNF rehab with outpatient follow up recommendations.
Discussed with patient and her at bedside. Discussed with RN.
Anticipated Discharge: Today
Subjective/Interval History
-
Date of Service: November 21, 2023
Patient feels back to her baseline. She does have some discomfort of the left lower extremity but she has been told by her orthopedic there is some angulation from her adrianne postop and they are watching this as outpatient.
Objective Data
-
Vital Signs:
Vital Signs
Temp Pulse Resp BP Pulse Ox
98.1 F 68 18 176/79 92
11/21/23 03:10 11/21/23 03:10 11/21/23 03:10 11/21/23 03:10 11/21/23 03:10
I&O
11/20/23 11/21/23 11/22/23
06:59 06:59 06:59
Intake Total 1560 / 1560 1560 / 1560
Output Total 2900 / 2900 1850 / 1850
Balance -1340 / -1340 -290 / -290
Review of Systems
-
All other systems: Reviewed and negative
[2023-11-21] MEDS: VITAMIN C 250 MG PO (09:05)
[2023-11-21] MEDS: BUMEX 1 MG PO (09:05)
[2023-11-21] MEDS: PROTONIX 40 MG PO (09:05)
[2023-11-21] MEDS: TYLENOL 1000 MG PO ×2 (09:05→19:42)
[2023-11-21] MEDS: NORVASC 5 MG PO (09:06)
[2023-11-21] MEDS: XIFAXAN 550 MG PO ×2 (09:07→19:42)
[2023-11-21] MEDS: PROZAC 20 MG PO (09:07)
[2023-11-21] MEDS: ELIQUIS 5 MG PO ×2 (09:07→19:42)
[2023-11-21] MEDS: THERAGRAN 1 TABLET PO (09:07)
[2023-11-21] MEDS: ZEBETA 5 MG PO (09:07)
[2023-11-21] MEDS: CYTOMEL 5 MICROGRAM PO (09:08)
[2023-11-21] MEDS: DESENEX/MITRAZOL/ZEASORB 1 APPLIC TOPICAL ×2 (09:08→19:42)
[2023-11-21] MEDS: DELTASONE 5 MG PO (09:08)
[2023-11-21] MEDS: DUPHALAC/CHRONULAC PO ×3 (09:09→19:44)
[2023-11-21] MEDS: LIDOCAINE 4% PATCH 1 PATCH TOPICAL (09:09)
[2023-11-21 11:00] VITALS: BP 134/65
[2023-11-21] MEDS: REFRESH EYE DROPS (PF) 1 DROPS OPHTH ×2 (12:51→19:42)
[2023-11-21 15:12] VITALS: BP 129/70
[2023-11-21 16:05] VITALS: BP 126/60; PULSE 72; O2SAT 94
--- NOTE | 2023-11-21 18:03 | CM ---
[facility] have no beds and do not anticipate in near future. Spoke with daughter, patient and . Additional referrals forwarded.
[2023-11-21 23:22] VITALS: BP 138/60
[2023-11-22 05:20] VITALS: BMI 36.4
[2023-11-22 06:00] VITALS: BMI 36.4
[2023-11-22] MEDS: SYNTHROID 100 MCG PO (06:01)
[2023-11-22 07:35] VITALS: BP 143/60
--- NOTE | 2023-11-22 07:51 | W.PN.HOSP.TC ---
Today's Communication/Plan
-
Continue current management. Discharge planning in progress
Assessment / Plan
Assessment / Plan
Physical Exam
General: Well Developed, Well Nourished, No Apparent Distress, Comfortable and Obese
HEENT: [place] Conjunctivae, Nose Appears Normal and Ears Appear Normal, mild injected sclera b/l
Respiratory: Decreased Breath Sounds, faint bibasilar crackles
Cardiac: S1/S2, Regular Rhythm faint heart sounds
GI: Soft, Non Tender and distended vs obesity
Musculoskeletal: No Clubbing, No Cyanosis and No Edema
Skin: Warm, Dry and Rash (several breaks/bruising in her skin on UE likely combination poor wound healing due to steroids poor nutrition)
Neuro: Awake Alert Conversant
Psych: Calm Cooperative
78F with hx Obesity recent leg fx [facility] p[facility] HFpEF HTN HLD DM adrenal insufficiency MAZARIEGOS Cirrhosis here with TME sepsis UTI
#� Sepsis, urinary source, resistant organism
IV fluids completed
Follow cultures NGTD
ID eval appreciated meropenem switched to fosfomycin given tremors possibly associated to meropenem, 3 days abx treatment completed as per ID
Urology Eval Appreciated
#Hypoxia
Check pulse ox at rest and on exertion to assess for home oxygen needs
#Lactic acidosis persists possibly d/t poor clearance Liver dysfunction/cirrhosis
received multiple IVF bolus
since resolved
CT (limited by motion) noted
-Minimal amount of left pleural fluid. Parenchymal opacity within the visualized lower lungs, most likely atelectasis (incentive spirometry ordered)
-calcified gallstones, No gross evidence to suggest cholecystitis
-Cirrhotic liver.
-Atrophic adrenal glands bilaterally
-Enlarged right renal pelvis and proximal to mid right ureter, with normal caliber distal right ureter, no convincing evidence for right ureteral calculus (as per urology's review of imaging, enlargement likely d/t Rt UPJ obstruction cogenital
abnormality no intervention required)
-Mild dilation of the common iliac arteries bilaterally. Tortuosity of the abdominal aorta with no evidence for abdominal aortic aneurysm.
-Moderate distention of the rectum with stool, transverse measures 6.5 cm. No convincing evidence for stercoral colitis. (once suppository 11/14 administered with subsequent moderate bowel movement noted)
-Moderate amount of subcutaneous edema. Not mentioned above, there is also a small moderate amount of presacral edema.
-Mild superior endplate depression of the T10, T11, T12, and L4 vertebral bodies. Age is uncertain, although these findings appear new since of bowel radiograph of July 10, 2012. Please correlate with any acute symptoms.
-Previous vertebroplasty involving L1, L2, and L3.
-Top normal lymph nodes in the portacaval region. There is an enlarged interaortocaval lymph node. These are nonspecific, and could be inflammatory or neoplastic. Statistically, these are probably more likely to be reactive inflammatory lymph nodes.
#� Adrenal insufficiency - chronic issue
Stress dose IV steroids tapered back to home prednisone regimen 5 mg daily
#� Low Na, may be from decreased po and adrenal issues
Improved/resolved with IV steroids IVF NS
Cont to monitor
IVF since completed, steroid taper as above
#hypokalemia
#hypophosphatemia
monitor and replete as necessary
#� SANTOSH resolved
Cr improved likely baseline 1.0-1.1
IVF completed
monitor kidney function
#blurry vision both eyes, left eye injection, possible conjunctivitis resolved
-Maxitrol eye drop treatment completed
-monitor response
-ophthalmology eval appreciated no acute abn's outpatient follow up recommended
#Tremor ext's new onset unclear etiology
-Neuro eval appreciated likely physiologic tremor, CT head appreciated no acute abn's, checking for other potential metabolic causes
#� Essential HTN - antihypertensives held for low normotensive pressures
resumed home amlodipine at reduced dosage 5 mg daily holding parameters
home bisoprolol resumed with holding parameters
home losartan resumed
continuing hold hydralazine for now
#� Anemia - chronic, likely from chronic disease
H&H stable
#� Heart failure - chronic diastolic
#Acute on Chronic HFpEF 11/19
home bisoprolol resumed
weight up
Acute Hypoxic respiratory Insufficiency/failure
[correction to prior documentation] bumex was restarted as IV 11/19
weight since improved, weaned of oxygen supplementation
bumex to transition back to PO 11/21 home dose 1 mg daily
#� Chronic wounds - change dressings as needed
# upper ext poor wound healing
-limit lab draws as possible
-Vitamin C supplementation started
-Multivitamin
#� Cirrhosis - continue xifaxan lactulose
limited abd US appreciated no ascites
# Paroxysmal afib - continue eliquis.� No signs of bleeding
#Hypothyroidism
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
-cont thyroid supplementation
#Otherwise complex PMH with GERD, constipation, depression
Continue usual home meds
Full code
Eliquis for DVTp
gi ppx Protonix
Medically stable for discharge SNF rehab with outpatient follow up recommendations.
Discussed with patient and her at bedside. Discussed with RN.
Anticipated Discharge: Today
Subjective/Interval History
-
Date of Service: November 22, 2023
Patient dropped her oxygenation last night and was placed on oxygen but this morning she has been taken off and oxygenating well. No chest pain or shortness of breath. Afebrile
Objective Data
-
Vital Signs:
Vital Signs
Temp Pulse Resp BP Pulse Ox
98.4 F 65 14 143/60 98
11/22/23 07:35 11/22/23 07:35 11/22/23 07:35 11/22/23 07:35 11/22/23 07:35
I&O
11/21/23 11/22/23 11/23/23
06:59 06:59 06:59
Intake Total 1560 / 1560 1020 / 1020
Output Total 1850 / 1850 700 / 700
Balance -290 / -290 320 / 320
[2023-11-22] MEDS: DUPHALAC/CHRONULAC PO ×3 (08:22→20:25)
[2023-11-22] MEDS: LIDOCAINE 4% PATCH 1 PATCH TOPICAL (08:23)
[2023-11-22] MEDS: PROTONIX 40 MG PO (08:24)
[2023-11-22] MEDS: BUMEX 1 MG PO (08:24)
[2023-11-22] MEDS: TYLENOL 1000 MG PO ×2 (08:24→20:16)
[2023-11-22] MEDS: CYTOMEL 5 MICROGRAM PO (08:24)
[2023-11-22] MEDS: ZEBETA 5 MG PO (08:24)
[2023-11-22] MEDS: XIFAXAN 550 MG PO ×2 (08:25→20:16)
[2023-11-22] MEDS: ELIQUIS 5 MG PO ×2 (08:25→20:16)
[2023-11-22] MEDS: NORVASC 5 MG PO (08:26)
[2023-11-22] MEDS: THERAGRAN 1 TABLET PO (08:26)
[2023-11-22] MEDS: VITAMIN B-12 1000 MCG PO (08:26)
[2023-11-22] MEDS: COZAAR 100 MG PO (08:27)
[2023-11-22] MEDS: VITAMIN C 250 MG PO (08:29)
[2023-11-22] MEDS: PROZAC 20 MG PO (08:29)
[2023-11-22] MEDS: DELTASONE 5 MG PO (08:29)
[2023-11-22] MEDS: DESENEX/MITRAZOL/ZEASORB 1 APPLIC TOPICAL ×2 (08:30→20:16)
[2023-11-22 15:15] VITALS: BP 92/66; PULSE 114; PULSE 57; O2SAT 97
[2023-11-22 15:17] VITALS: BP 92/62; PULSE 57; O2SAT 97
[2023-11-22 23:29] VITALS: BP 96/47
[2023-11-23] MEDS: SYNTHROID 100 MCG PO (04:52)
[2023-11-23 05:04] LABS: Hematocrit 33.5 % (37.0-47.0); Hemoglobin 11.1 g/dL (12.0-16.0); Mean Corp Hgb Conc. 33.1 g/dL (33.0-37.0); Mean Corpuscular Hgb 31.5 pg (27.0-31.0); Mean Corpuscular Volume 95.2 fL (81.0-99.0); Mean Platelet Volume 10.7 fL (7.4-10.4); Platelet Count 172 10^3/uL (130-400); Red Blood Cell Count 3.52 10^6/uL (4.20-5.40); White Blood Cell Count 9.5 10^3/uL (4.8-10.8)
[2023-11-23 05:16] VITALS: BMI 36.5
[2023-11-23 05:30] LABS: Blood Urea Nitrogen 17 mg/dl (7-17); Calcium 8.1 mg/dl (8.4-10.2); Carbon Dioxide 36 mmol/L (22-30); Chloride 97 mmol/L (98-107); Estimated Creatinine Clearance 58 ml/min; Glucose 81 mg/dl (70-99); Potassium 3.5 mmol/L (3.5-5.1); Sodium 135 mmol/L (135-145); eGFR > 60.00
[2023-11-23 06:00] VITALS: BMI 36.5
[2023-11-23 07:10] VITALS: BP 127/73
--- NOTE | 2023-11-23 08:00 | W.PN.HOSP.TC ---
Addendum entered and electronically signed by Oswaldo Haynes MD 11/23/23 12:32:
Will obtain an x-ray of the femur today. I discussed with our orthopedic on-call Dr. Chavez and he can look at the x-ray but he cannot recommend weightbearing status since he does not know all the details intraoperative and postop and would
rather recommend follow-up with outpatient orthopedic to make final decision of weightbearing status. I discussed with daughter twice today and will communicate later down the road again.
Original Note:
Today's Communication/Plan
-
Continue current management. Discharge planning in progress
Assessment / Plan
Assessment / Plan
Physical Exam
General: Well Developed, Well Nourished, No Apparent Distress, Comfortable and Obese
HEENT: [place] Conjunctivae, Nose Appears Normal and Ears Appear Normal, mild injected sclera b/l
Respiratory: Decreased Breath Sounds, faint bibasilar crackles
Cardiac: S1/S2, Regular Rhythm faint heart sounds
GI: Soft, Non Tender and distended vs obesity
Musculoskeletal: No Clubbing, No Cyanosis and No Edema
Skin: Warm, Dry and Rash (several breaks/bruising in her skin on UE likely combination poor wound healing due to steroids poor nutrition)
Neuro: Awake Alert Conversant
Psych: Calm Cooperative
78F with hx Obesity recent leg fx [facility] p[facility]ib HFpEF HTN HLD DM adrenal insufficiency MAZARIEGOS Cirrhosis here with TME sepsis UTI.
#Recent left lower extremity fracture
Outpatient orthopedic coordinating care and as per family there were plans to repeat images this week to assess for weightbearing status
manager of creative services working on discharge disposition
Updated family at bedside today on 11/23
#� Sepsis, urinary source, resistant organism
IV fluids completed
Follow cultures NGTD
ID eval appreciated meropenem switched to fosfomycin given tremors possibly associated to meropenem, 3 days abx treatment completed as per ID
Urology Eval Appreciated
#Hypoxia
Check pulse ox at rest and on exertion to assess for home oxygen needs
#Lactic acidosis persists possibly d/t poor clearance Liver dysfunction/cirrhosis
received multiple IVF bolus
since resolved
CT (limited by motion) noted
-Minimal amount of left pleural fluid. Parenchymal opacity within the visualized lower lungs, most likely atelectasis (incentive spirometry ordered)
-calcified gallstones, No gross evidence to suggest cholecystitis
-Cirrhotic liver.
-Atrophic adrenal glands bilaterally
-Enlarged right renal pelvis and proximal to mid right ureter, with normal caliber distal right ureter, no convincing evidence for right ureteral calculus (as per urology's review of imaging, enlargement likely d/t Rt UPJ obstruction cogenital
abnormality no intervention required)
-Mild dilation of the common iliac arteries bilaterally. Tortuosity of the abdominal aorta with no evidence for abdominal aortic aneurysm.
-Moderate distention of the rectum with stool, transverse measures 6.5 cm. No convincing evidence for stercoral colitis. (once suppository 11/14 administered with subsequent moderate bowel movement noted)
-Moderate amount of subcutaneous edema. Not mentioned above, there is also a small moderate amount of presacral edema.
-Mild superior endplate depression of the T10, T11, T12, and L4 vertebral bodies. Age is uncertain, although these findings appear new since of bowel radiograph of July 10, 2012. Please correlate with any acute symptoms.
-Previous vertebroplasty involving L1, L2, and L3.
-Top normal lymph nodes in the portacaval region. There is an enlarged interaortocaval lymph node. These are nonspecific, and could be inflammatory or neoplastic. Statistically, these are probably more likely to be reactive inflammatory lymph nodes.
#� Adrenal insufficiency - chronic issue
Stress dose IV steroids tapered back to home prednisone regimen 5 mg daily
#� Low Na, may be from decreased po and adrenal issues
Improved/resolved with IV steroids IVF NS
Cont to monitor
IVF since completed, steroid taper as above
#hypokalemia
#hypophosphatemia
monitor and replete as necessary
#� SANTOSH resolved
Cr improved likely baseline 1.0-1.1
IVF completed
monitor kidney function
#blurry vision both eyes, left eye injection, possible conjunctivitis resolved
-Maxitrol eye drop treatment completed
-monitor response
-ophthalmology eval appreciated no acute abn's outpatient follow up recommended
#Tremor ext's new onset unclear etiology
-Neuro eval appreciated likely physiologic tremor, CT head appreciated no acute abn's, checking for other potential metabolic causes
#� Essential HTN - antihypertensives held for low normotensive pressures
resumed home amlodipine at reduced dosage 5 mg daily holding parameters
home bisoprolol resumed with holding parameters
home losartan resumed
continuing hold hydralazine for now
#� Anemia - chronic, likely from chronic disease
H&H stable
#� Heart failure - chronic diastolic
#Acute on Chronic HFpEF 11/19
home bisoprolol resumed
weight up
Acute Hypoxic respiratory Insufficiency/failure
[correction to prior documentation] bumex was restarted as IV 11/19
weight since improved, weaned of oxygen supplementation
bumex to transition back to PO 11/21 home dose 1 mg daily
#� Chronic wounds - change dressings as needed
# upper ext poor wound healing
-limit lab draws as possible
-Vitamin C supplementation started
-Multivitamin
#� Cirrhosis - continue xifaxan lactulose
limited abd US appreciated no ascites
# Paroxysmal afib - continue eliquis.� No signs of bleeding
#Hypothyroidism
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
-cont thyroid supplementation
#Otherwise complex PMH with GERD, constipation, depression
Continue usual home meds
Full code
Eliquis for DVTp
gi ppx Protonix
Medically stable for discharge SNF rehab with outpatient follow up recommendations. Images have been given to provider as outpatient.
Discussed with patient and her daughter at bedside. Discussed with RN.
Anticipated Discharge: Today
Subjective/Interval History
-
Date of Service: November 23, 2023
Patient denies any shortness of breath. Generalized weakness present.
Objective Data
-
Labs:
Laboratory Results
11/23/23
04:07
WBC 9.5
Hgb 11.1 L
Hct 33.5 L
Plt Count 172 D
Sodium 135
Potassium 3.5
Chloride 97 L
Carbon Dioxide 36 H
BUN 17
Creatinine 0.8
Glucose 81
Calcium 8.1 L
Vital Signs:
Vital Signs
Temp Pulse Resp BP Pulse Ox
97.9 F 87 18 96/47 93
11/22/23 23:29 11/22/23 23:29 11/22/23 23:29 11/22/23 23:29 11/22/23 23:29
I&O
11/22/23 11/23/23 11/24/23
06:59 06:59 06:59
Intake Total 1020 / 1020 930 / 930
Output Total 700 / 700
Balance 320 / 320 930 / 930
Review of Systems
-
All other systems: Reviewed and negative
[2023-11-23] MEDS: TYLENOL 1000 MG PO ×2 (08:42→19:38)
[2023-11-23] MEDS: ZEBETA 5 MG PO (08:42)
[2023-11-23] MEDS: THERAGRAN 1 TABLET PO (08:43)
[2023-11-23] MEDS: CYTOMEL 5 MICROGRAM PO (08:43)
[2023-11-23] MEDS: PROTONIX 40 MG PO (08:43)
[2023-11-23] MEDS: PROZAC 20 MG PO (08:44)
[2023-11-23] MEDS: BUMEX 1 MG PO (08:44)
[2023-11-23] MEDS: XIFAXAN 550 MG PO ×2 (08:44→19:38)
[2023-11-23] MEDS: DELTASONE 5 MG PO (08:44)
[2023-11-23] MEDS: ELIQUIS 5 MG PO ×2 (08:45→19:38)
[2023-11-23] MEDS: COZAAR 100 MG PO (08:45)
[2023-11-23] MEDS: VITAMIN C 250 MG PO (08:45)
[2023-11-23] MEDS: NORVASC 5 MG PO (08:46)
[2023-11-23] MEDS: DESENEX/MITRAZOL/ZEASORB 1 APPLIC TOPICAL ×2 (08:46→19:53)
[2023-11-23] MEDS: DUPHALAC/CHRONULAC PO ×2 (08:47→19:39)
[2023-11-23] MEDS: LIDOCAINE 4% PATCH TOPICAL (09:01)
--- NOTE | 2023-11-23 10:30 | WOUNDNOTE ---
[facility] RN NOTE: Reviewed chart and met with patient and daughter. Patient admitted with ecchymosis of bilateral UE, no open areas noted. Right groin with liner opening under abdominal skin fold, Calazime applied. Left groin, buttocks and heels intact.
RN Mauro to place adhesive foam to heels. Patient has poor mobility and needs assistance to change position in bed. Heels off-loaded with pillow under calves. Static air overlay properly inflated during assessment. Will continue to follow as needed.
--- NOTE | 2023-11-23 13:32 | WOUNDNOTE ---
RIGHT GROIN (Under abdominal skin fold)
[2023-11-23 15:40] VITALS: BP 112/61
--- NOTE | 2023-11-23 15:58 | CM ---
NWB status continues. X-Ray L femur completed today. Orthopedics prefers patient consult with original surgeon as outpatient to determine weight bearing status. Discharge plan of care is SNF. Referrals have been sent. Will need insurance auth.
[2023-11-23 23:26] VITALS: BP 101/59
[2023-11-24 05:46] VITALS: BMI 36.2
[2023-11-24] MEDS: SYNTHROID 100 MCG PO (05:49)
[2023-11-24 06:00] VITALS: BMI 36.2
[2023-11-24 07:05] VITALS: BP 140/92
--- NOTE | 2023-11-24 07:33 | W.PN.HOSP.TC ---
Today's Communication/Plan
-
Continue current management. Discharge planning in progress.
Assessment / Plan
Assessment / Plan
Physical Exam
General: Well Developed, Well Nourished, No Apparent Distress, Comfortable and Obese
HEENT: [place] Conjunctivae, Nose Appears Normal and Ears Appear Normal, mild injected sclera b/l
Respiratory: Decreased Breath Sounds, faint bibasilar crackles
Cardiac: S1/S2, Regular Rhythm faint heart sounds
GI: Soft, Non Tender and distended vs obesity
Musculoskeletal: No Clubbing, No Cyanosis and No Edema
Skin: Warm, Dry and Rash (several breaks/bruising in her skin on UE likely combination poor wound healing due to steroids poor nutrition)
Neuro: Awake Alert Conversant
Psych: Calm Cooperative
78F with hx Obesity recent leg fx [facility] p[facility] HFpEF HTN HLD DM adrenal insufficiency MAZARIEGOS Cirrhosis here with TME sepsis UTI.
#Recent left lower extremity fracture
Outpatient orthopedic coordinating care and as per family there were plans to repeat images this week to assess for weightbearing status
manager placement working on discharge disposition
I discussed with our orthopedic on-call Dr. Chavez on 11/23 and he can look at the x-ray but he cannot recommend weightbearing status since he does not know all the details intraoperative and postop and would rather recommend follow-up with
outpatient orthopedic to make final decision of weightbearing status.� I discussed with daughter three times on 11/23 and she understands. She had a femoral fracture on 10/06 and had surgery on 10/[address] Maria De [facility] Verduzco orthopedic at [facility]. Daughter will try to get x-ray films and report to her outpatient orthopedic.
Updated family at bedside on 11/23
X-ray of the femur:
INDINGS/impression:
There is a long intramedullary adrianne extending through the left femur. The patient is status post gamma nail fixation of a proximal femoral fracture. There is a greater trochanteric fracture component which is displaced laterally approximately 2.3 cm;
the gamma nail appears to extend through this greater trochanteric component. Along the medial margin of the proximal femur, distal to the lesser trochanter, there is a slightly angulated and medially displaced fracture component with displacement
of approximately 1.4 cm. There is an isolated fracture of the lesser trochanter, with approximately 8 mm medial displacement. The femoral head remains situated within the acetabulum.
#� Sepsis, urinary source, resistant organism
IV fluids completed
Follow cultures NGTD
ID eval appreciated meropenem switched to fosfomycin given tremors possibly associated to meropenem, 3 days abx treatment completed as per ID
Urology Eval Appreciated
#Hypoxia
Check pulse ox at rest and on exertion to assess for home oxygen needs
#Lactic acidosis persists possibly d/t poor clearance Liver dysfunction/cirrhosis
received multiple IVF bolus
since resolved
CT (limited by motion) noted
-Minimal amount of left pleural fluid. Parenchymal opacity within the visualized lower lungs, most likely atelectasis (incentive spirometry ordered)
-calcified gallstones, No gross evidence to suggest cholecystitis
-Cirrhotic liver.
-Atrophic adrenal glands bilaterally
-Enlarged right renal pelvis and proximal to mid right ureter, with normal caliber distal right ureter, no convincing evidence for right ureteral calculus (as per urology's review of imaging, enlargement likely d/t Rt UPJ obstruction cogenital
abnormality no intervention required)
-Mild dilation of the common iliac arteries bilaterally. Tortuosity of the abdominal aorta with no evidence for abdominal aortic aneurysm.
-Moderate distention of the rectum with stool, transverse measures 6.5 cm. No convincing evidence for stercoral colitis. (once suppository 11/14 administered with subsequent moderate bowel movement noted)
-Moderate amount of subcutaneous edema. Not mentioned above, there is also a small moderate amount of presacral edema.
-Mild superior endplate depression of the T10, T11, T12, and L4 vertebral bodies. Age is uncertain, although these findings appear new since of bowel radiograph of July 10, 2012. Please correlate with any acute symptoms.
-Previous vertebroplasty involving L1, L2, and L3.
-Top normal lymph nodes in the portacaval region. There is an enlarged interaortocaval lymph node. These are nonspecific, and could be inflammatory or neoplastic. Statistically, these are probably more likely to be reactive inflammatory lymph nodes.
#� Adrenal insufficiency - chronic issue
Stress dose IV steroids tapered back to home prednisone regimen 5 mg daily
#� Low Na, may be from decreased po and adrenal issues
Improved/resolved with IV steroids IVF NS
Cont to monitor
IVF since completed, steroid taper as above
#hypokalemia
#hypophosphatemia
monitor and replete as necessary
#� SANTOSH resolved
Cr improved likely baseline 1.0-1.1
IVF completed
monitor kidney function
#blurry vision both eyes, left eye injection, possible conjunctivitis resolved
-Maxitrol eye drop treatment completed
-monitor response
-ophthalmology eval appreciated no acute abn's outpatient follow up recommended
#Tremor ext's new onset unclear etiology
-Neuro eval appreciated likely physiologic tremor, CT head appreciated no acute abn's, checking for other potential metabolic causes
#� Essential HTN - antihypertensives held for low normotensive pressures
resumed home amlodipine at reduced dosage 5 mg daily holding parameters
home bisoprolol resumed with holding parameters
home losartan resumed
continuing hold hydralazine for now
#� Anemia - chronic, likely from chronic disease
H&H stable
#� Heart failure - chronic diastolic
#Acute on Chronic HFpEF 11/19
home bisoprolol resumed
weight up
Acute Hypoxic respiratory Insufficiency/failure
[correction to prior documentation] bumex was restarted as IV 11/19
weight since improved, weaned of oxygen supplementation
bumex to transition back to PO 11/21 home dose 1 mg daily
#� Chronic wounds - change dressings as needed
# upper ext poor wound healing
-limit lab draws as possible
-Vitamin C supplementation started
-Multivitamin
#� Cirrhosis - continue xifaxan lactulose
limited abd US appreciated no ascites
# Paroxysmal afib - continue eliquis.� No signs of bleeding
#Hypothyroidism
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
-cont thyroid supplementation
#Otherwise complex PMH with GERD, constipation, depression
Continue usual home meds
Full code
Eliquis for DVTp
gi ppx Protonix
Medically stable for discharge SNF rehab with outpatient follow up recommendations. Images have been given to provider as outpatient.
Discussed with patient. Discussed with RN.
Anticipated Discharge: Today
Subjective/Interval History
-
Date of Service: November 24, 2023
Patient denies any chest pain or shortness of breath. Afebrile
Objective Data
-
Vital Signs:
Vital Signs
Temp Pulse Resp BP Pulse Ox
99.1 F 94 18 101/59 95
11/23/23 23:26 11/23/23 23:26 11/23/23 23:26 11/23/23 23:26 11/24/23 01:07
I&O
11/23/23 11/24/23 11/25/23
06:59 06:59 06:59
Intake Total 930 / 930 1680 / 1680
Balance 930 / 930 1680 / 1680
[2023-11-24] MEDS: BUMEX 1 MG PO (09:10)
[2023-11-24] MEDS: CYTOMEL 5 MICROGRAM PO (09:11)
[2023-11-24] MEDS: TYLENOL 1000 MG PO ×2 (09:12→19:33)
[2023-11-24] MEDS: XIFAXAN 550 MG PO ×2 (09:12→19:33)
[2023-11-24] MEDS: ZEBETA 5 MG PO (09:12)
[2023-11-24] MEDS: PROZAC 20 MG PO (09:12)
[2023-11-24] MEDS: ELIQUIS 5 MG PO ×2 (09:13→19:33)
[2023-11-24] MEDS: PROTONIX 40 MG PO (09:13)
[2023-11-24] MEDS: COZAAR 100 MG PO (09:13)
[2023-11-24] MEDS: VITAMIN C 250 MG PO (09:13)
[2023-11-24] MEDS: VITAMIN B-12 1000 MCG PO (09:13)
[2023-11-24] MEDS: DELTASONE 5 MG PO (09:13)
[2023-11-24] MEDS: LIDOCAINE 4% PATCH TOPICAL (09:14)
[2023-11-24] MEDS: DUPHALAC/CHRONULAC PO ×2 (09:14→19:32)
[2023-11-24] MEDS: NORVASC 5 MG PO (09:14)
[2023-11-24] MEDS: DESENEX/MITRAZOL/ZEASORB 1 APPLIC TOPICAL ×2 (09:14→19:33)
[2023-11-24] MEDS: THERAGRAN 1 TABLET PO (09:15)
[2023-11-24 15:05] VITALS: BP 118/69
[2023-11-24 16:08] VITALS: BP 112/52; PULSE 91; O2SAT 94
--- NOTE | 2023-11-24 17:32 | CM ---
Patient will remain NWB until seen as outpatient by surgeon who did ORIF, Dr. Pretty. Updated referrals have been forwarded. Daughter notified.
[2023-11-24 23:17] VITALS: BP 101/67
[2023-11-25 06:00] VITALS: BMI 36.4
[2023-11-25] MEDS: SYNTHROID 100 MCG PO (06:02)
--- NOTE | 2023-11-25 08:06 | W.PN.HOSP.TC ---
Addendum entered and electronically signed by Oswaldo Haynes MD 11/25/23 15:56:
updated daughter today
Original Note:
Today's Communication/Plan
-
Continue current management. Discharge planning in progress.
Assessment / Plan
Assessment / Plan
Physical Exam
General: Well Developed, Well Nourished, No Apparent Distress, Comfortable and Obese
HEENT: [place] Conjunctivae, Nose Appears Normal and Ears Appear Normal, mild injected sclera b/l
Respiratory: Decreased Breath Sounds, faint bibasilar crackles
Cardiac: S1/S2, Regular Rhythm faint heart sounds
GI: Soft, Non Tender and distended vs obesity
Musculoskeletal: No Clubbing, No Cyanosis and No Edema
Skin: Warm, Dry and Rash (several breaks/bruising in her skin on UE likely combination poor wound healing due to steroids poor nutrition)
Neuro: Awake Alert Conversant
Psych: Calm Cooperative
78F with hx Obesity recent leg fx [facility] p[facility] HFpEF HTN HLD DM adrenal insufficiency MAZARIEGOS Cirrhosis here with TME sepsis UTI.
#Recent left lower extremity fracture
Outpatient orthopedic coordinating care and as per family there were plans to repeat images this week to assess for weightbearing status
chemical plant manager working on discharge disposition
I discussed with our orthopedic on-call Dr. Chavez on 11/23 and he can look at the x-ray but he cannot recommend weightbearing status since he does not know all the details intraoperative and postop and would rather recommend follow-up with
outpatient orthopedic to make final decision of weightbearing status.� I discussed with daughter three times on 11/23 and she understands. She had a femoral fracture on 10/06 and had surgery on 10/[address] Maria De [facility] Verduzco orthopedic at [facility]. Daughter will try to get x-ray films and report to her outpatient orthopedic.
Updated family at bedside on 11/23. Will update later today or in am
I discussed with orthopedic again today on 11/24. They will leave a note on the chart to the extent of their recommendations.
X-ray of the femur:
INDINGS/impression:
There is a long intramedullary adrianne extending through the left femur. The patient is status post gamma nail fixation of a proximal femoral fracture. There is a greater trochanteric fracture component which is displaced laterally approximately 2.3 cm;
the gamma nail appears to extend through this greater trochanteric component. Along the medial margin of the proximal femur, distal to the lesser trochanter, there is a slightly angulated and medially displaced fracture component with displacement
of approximately 1.4 cm. There is an isolated fracture of the lesser trochanter, with approximately 8 mm medial displacement. The femoral head remains situated within the acetabulum.
#� Sepsis, urinary source, resistant organism
IV fluids completed
Follow cultures NGTD
ID eval appreciated meropenem switched to fosfomycin given tremors possibly associated to meropenem, 3 days abx treatment completed as per ID
Urology Eval Appreciated
#Hypoxia
Check pulse ox at rest and on exertion to assess for home oxygen needs
#Lactic acidosis persists possibly d/t poor clearance Liver dysfunction/cirrhosis
received multiple IVF bolus
since resolved
CT (limited by motion) noted
-Minimal amount of left pleural fluid. Parenchymal opacity within the visualized lower lungs, most likely atelectasis (incentive spirometry ordered)
-calcified gallstones, No gross evidence to suggest cholecystitis
-Cirrhotic liver.
-Atrophic adrenal glands bilaterally
-Enlarged right renal pelvis and proximal to mid right ureter, with normal caliber distal right ureter, no convincing evidence for right ureteral calculus (as per urology's review of imaging, enlargement likely d/t Rt UPJ obstruction cogenital
abnormality no intervention required)
-Mild dilation of the common iliac arteries bilaterally. Tortuosity of the abdominal aorta with no evidence for abdominal aortic aneurysm.
-Moderate distention of the rectum with stool, transverse measures 6.5 cm. No convincing evidence for stercoral colitis. (once suppository 11/14 administered with subsequent moderate bowel movement noted)
-Moderate amount of subcutaneous edema. Not mentioned above, there is also a small moderate amount of presacral edema.
-Mild superior endplate depression of the T10, T11, T12, and L4 vertebral bodies. Age is uncertain, although these findings appear new since of bowel radiograph of July 10, 2012. Please correlate with any acute symptoms.
-Previous vertebroplasty involving L1, L2, and L3.
-Top normal lymph nodes in the portacaval region. There is an enlarged interaortocaval lymph node. These are nonspecific, and could be inflammatory or neoplastic. Statistically, these are probably more likely to be reactive inflammatory lymph nodes.
#� Adrenal insufficiency - chronic issue
Stress dose IV steroids tapered back to home prednisone regimen 5 mg daily
#� Low Na, may be from decreased po and adrenal issues
Improved/resolved with IV steroids IVF NS
Cont to monitor
IVF since completed, steroid taper as above
#hypokalemia
#hypophosphatemia
monitor and replete as necessary
#� SANTOSH resolved
Cr improved likely baseline 1.0-1.1
IVF completed
monitor kidney function
#blurry vision both eyes, left eye injection, possible conjunctivitis resolved
-Maxitrol eye drop treatment completed
-monitor response
-ophthalmology eval appreciated no acute abn's outpatient follow up recommended
#Tremor ext's new onset unclear etiology
-Neuro eval appreciated likely physiologic tremor, CT head appreciated no acute abn's, checking for other potential metabolic causes
#� Essential HTN - antihypertensives held for low normotensive pressures
resumed home amlodipine at reduced dosage 5 mg daily holding parameters
home bisoprolol resumed with holding parameters
home losartan resumed
continuing hold hydralazine for now
#� Anemia - chronic, likely from chronic disease
H&H stable
#� Heart failure - chronic diastolic
#Acute on Chronic HFpEF 11/19
home bisoprolol resumed
weight up
Acute Hypoxic respiratory Insufficiency/failure
[correction to prior documentation] bumex was restarted as IV 11/19
weight since improved, weaned of oxygen supplementation
bumex to transition back to PO 11/21 home dose 1 mg daily
#� Chronic wounds - change dressings as needed
# upper ext poor wound healing
-limit lab draws as possible
-Vitamin C supplementation started
-Multivitamin
#� Cirrhosis - continue xifaxan lactulose
limited abd US appreciated no ascites
# Paroxysmal afib - continue eliquis.� No signs of bleeding
#Hypothyroidism
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
-cont thyroid supplementation
#Otherwise complex PMH with GERD, constipation, depression
Continue usual home meds
Full code
Eliquis for DVTp
gi ppx Protonix
Medically stable for discharge SNF rehab with outpatient follow up recommendations. Images have been given to provider as outpatient.
Discussed with patient. Discussed with RN.
Anticipated Discharge: 24 - 48 hours
Subjective/Interval History
-
Date of Service: November 25, 2023
Patient denies any chest pain or shortness of breath. No leg pain today.
Objective Data
-
Vital Signs:
Vital Signs
Temp Pulse Resp BP Pulse Ox
97.8 F 108 16 101/67 95
11/24/23 23:17 11/24/23 23:17 11/24/23 23:17 11/24/23 23:17 11/24/23 23:17
I&O
11/24/23 11/25/23 11/26/23
06:59 06:59 06:59
Intake Total 1680 / 1680 1380 / 1380
Balance 1680 / 1680 1380 / 1380
[2023-11-25 08:11] VITALS: BP 138/85
[2023-11-25] MEDS: DUPHALAC/CHRONULAC PO ×3 (09:23→20:23)
[2023-11-25] MEDS: PROTONIX 40 MG PO (09:23)
[2023-11-25] MEDS: COZAAR 100 MG PO (09:23)
[2023-11-25] MEDS: CYTOMEL 5 MICROGRAM PO (09:24)
[2023-11-25] MEDS: PROZAC 20 MG PO (09:24)
[2023-11-25] MEDS: ELIQUIS 5 MG PO ×2 (09:24→20:25)
[2023-11-25] MEDS: TYLENOL 1000 MG PO ×2 (09:24→20:25)
[2023-11-25] MEDS: NORVASC 5 MG PO (09:24)
[2023-11-25] MEDS: VITAMIN C 250 MG PO (09:24)
[2023-11-25] MEDS: ZEBETA 5 MG PO (09:24)
[2023-11-25] MEDS: DELTASONE 5 MG PO (09:24)
[2023-11-25] MEDS: THERAGRAN 1 TABLET PO (09:24)
[2023-11-25] MEDS: XIFAXAN 550 MG PO ×2 (09:24→20:25)
[2023-11-25] MEDS: BUMEX 1 MG PO (09:24)
[2023-11-25] MEDS: LIDOCAINE 4% PATCH TOPICAL (09:30)
[2023-11-25] MEDS: DESENEX/MITRAZOL/ZEASORB 1 APPLIC TOPICAL ×2 (09:31→20:22)
--- NOTE | 2023-11-25 11:33 | W.PN.UPDATE ---
Update Note
Progress Note Update
Did speak to primary team regarding patient and reviewed imaging. Patient is reportedly s/p L [place] CMN fixation of what looks like a subtrochanteric femur fracture. She has been non weight bearing per my discussion with primary team as this was at
the direction of patient's treating surgeon at an outside hospital. Images confirm L LONG CMN traversing fracture with some displaced fragments medially and laterally. The calcar does appear to be reasonably well aligned however.
I would defer weight bearing recommendations to the treating surgeon and would recommend outpatient follow up with him to discuss potentially progressing weight bearing as I did not perform the surgery and do not know if there were any intra
operative concerns.
Please reach out with and questions or concerns.
[2023-11-25 15:09] VITALS: BP 102/64; PULSE 104; O2SAT 94
[2023-11-25 16:05] VITALS: BP 103/63
--- NOTE | 2023-11-25 16:44 | CM ---
Calls placed to SNF's for bed availability. Need accepting facility for NWB status.
[2023-11-25 19:05] VITALS: BP 103/59
[2023-11-25 20:35] VITALS: BP 103/59
[2023-11-25 23:27] VITALS: BP 109/71
[2023-11-26] MEDS: SYNTHROID 100 MCG PO (05:42)
[2023-11-26 06:00] VITALS: BMI 36.8
[2023-11-26 07:05] VITALS: BP 143/83
[2023-11-26] MEDS: PROZAC 20 MG PO (08:22)
[2023-11-26] MEDS: CYTOMEL 5 MICROGRAM PO (08:22)
[2023-11-26] MEDS: DUPHALAC/CHRONULAC PO ×3 (08:22→19:21)
[2023-11-26] MEDS: ELIQUIS 5 MG PO ×2 (08:22→19:20)
[2023-11-26] MEDS: TYLENOL 1000 MG PO ×2 (08:22→19:19)
[2023-11-26] MEDS: VITAMIN C 250 MG PO (08:22)
[2023-11-26] MEDS: PROTONIX 40 MG PO (08:22)
[2023-11-26] MEDS: LIDOCAINE 4% PATCH TOPICAL (08:22)
[2023-11-26] MEDS: ZEBETA 5 MG PO (08:22)
[2023-11-26] MEDS: THERAGRAN 1 TABLET PO (08:25)
[2023-11-26] MEDS: BUMEX 1 MG PO (08:25)
[2023-11-26] MEDS: DELTASONE 5 MG PO (08:25)
[2023-11-26] MEDS: NORVASC 5 MG PO (08:25)
[2023-11-26] MEDS: VITAMIN B-12 1000 MCG PO (08:25)
[2023-11-26] MEDS: XIFAXAN 550 MG PO ×2 (08:25→19:20)
[2023-11-26] MEDS: COZAAR 100 MG PO (08:26)
[2023-11-26] MEDS: DESENEX/MITRAZOL/ZEASORB 1 APPLIC TOPICAL ×2 (08:27→19:22)
--- NOTE | 2023-11-26 08:39 | PTCARENOTE ---
Pt refused lactulose and lidocaine patch this am. Pt + 2 to lower extremities. refused pillow for elevation at this time.
--- NOTE | 2023-11-26 10:00 | W.PN.HOSP.TC ---
Today's Communication/Plan
-
Continue current management. Discharge planning in progress.
Assessment / Plan
Assessment / Plan
Physical Exam
General: Well Developed, Well Nourished, No Apparent Distress, Comfortable and Obese
HEENT: [place] Conjunctivae, Nose Appears Normal and Ears Appear Normal, mild injected sclera b/l
Respiratory: Decreased Breath Sounds, faint bibasilar crackles
Cardiac: S1/S2, Regular Rhythm faint heart sounds
GI: Soft, Non Tender and distended vs obesity
Musculoskeletal: No Clubbing, No Cyanosis and No Edema
Skin: Warm, Dry and Rash (several breaks/bruising in her skin on UE likely combination poor wound healing due to steroids poor nutrition)
Neuro: Awake Alert Conversant
Psych: Calm Cooperative
78F with hx Obesity recent leg fx [facility] pAfib HFpEF HTN HLD DM adrenal insufficiency MAZARIEGOS Cirrhosis here with TME sepsis UTI.
#Recent left lower extremity fracture
Outpatient orthopedic coordinating care and as per family there were plans to repeat images this week to assess for weightbearing status
telecommunications manager working on discharge disposition
I discussed with our orthopedic on-call Dr. Chavez on 11/23 and he can look at the x-ray but he cannot recommend weightbearing status since he does not know all the details intraoperative and postop and would rather recommend follow-up with
outpatient orthopedic to make final decision of weightbearing status.� I discussed with daughter three times on 11/23 and she understands. She had a femoral fracture on 10/06 and had surgery on 10/[address] Maria De [facility] Verduzco orthopedic at [facility]. Daughter will try to get x-ray films and report to her outpatient orthopedic.
Updated family at bedside on 11/23.
I discussed with orthopedic again today on 11/24. They already left a note on the chart to the extent of their recommendations.
Discussed with at bedside today on 11/25.
CM working on discharge disposition
X-ray of the femur:
INDINGS/impression:
There is a long intramedullary adrianne extending through the left femur. The patient is status post gamma nail fixation of a proximal femoral fracture. There is a greater trochanteric fracture component which is displaced laterally approximately 2.3 cm;
the gamma nail appears to extend through this greater trochanteric component. Along the medial margin of the proximal femur, distal to the lesser trochanter, there is a slightly angulated and medially displaced fracture component with displacement
of approximately 1.4 cm. There is an isolated fracture of the lesser trochanter, with approximately 8 mm medial displacement. The femoral head remains situated within the acetabulum.
#� Sepsis, urinary source, resistant organism
IV fluids completed
Follow cultures NGTD
ID eval appreciated meropenem switched to fosfomycin given tremors possibly associated to meropenem, 3 days abx treatment completed as per ID
Urology Eval Appreciated
#Hypoxia
Check pulse ox at rest and on exertion to assess for home oxygen needs
#Lactic acidosis persists possibly d/t poor clearance Liver dysfunction/cirrhosis
received multiple IVF bolus
since resolved
CT (limited by motion) noted
-Minimal amount of left pleural fluid. Parenchymal opacity within the visualized lower lungs, most likely atelectasis (incentive spirometry ordered)
-calcified gallstones, No gross evidence to suggest cholecystitis
-Cirrhotic liver.
-Atrophic adrenal glands bilaterally
-Enlarged right renal pelvis and proximal to mid right ureter, with normal caliber distal right ureter, no convincing evidence for right ureteral calculus (as per urology's review of imaging, enlargement likely d/t Rt UPJ obstruction cogenital
abnormality no intervention required)
-Mild dilation of the common iliac arteries bilaterally. Tortuosity of the abdominal aorta with no evidence for abdominal aortic aneurysm.
-Moderate distention of the rectum with stool, transverse measures 6.5 cm. No convincing evidence for stercoral colitis. (once suppository 11/14 administered with subsequent moderate bowel movement noted)
-Moderate amount of subcutaneous edema. Not mentioned above, there is also a small moderate amount of presacral edema.
-Mild superior endplate depression of the T10, T11, T12, and L4 vertebral bodies. Age is uncertain, although these findings appear new since of bowel radiograph of July 10, 2012. Please correlate with any acute symptoms.
-Previous vertebroplasty involving L1, L2, and L3.
-Top normal lymph nodes in the portacaval region. There is an enlarged interaortocaval lymph node. These are nonspecific, and could be inflammatory or neoplastic. Statistically, these are probably more likely to be reactive inflammatory lymph nodes.
#� Adrenal insufficiency - chronic issue
Stress dose IV steroids tapered back to home prednisone regimen 5 mg daily
#� Low Na, may be from decreased po and adrenal issues
Improved/resolved with IV steroids IVF NS
Cont to monitor
IVF since completed, steroid taper as above
#hypokalemia
#hypophosphatemia
monitor and replete as necessary
#� SANTOSH resolved
Cr improved likely baseline 1.0-1.1
IVF completed
monitor kidney function
#blurry vision both eyes, left eye injection, possible conjunctivitis resolved
-Maxitrol eye drop treatment completed
-monitor response
-ophthalmology eval appreciated no acute abn's outpatient follow up recommended
#Tremor ext's new onset unclear etiology
-Neuro eval appreciated likely physiologic tremor, CT head appreciated no acute abn's, checking for other potential metabolic causes
#� Essential HTN - antihypertensives held for low normotensive pressures
resumed home amlodipine at reduced dosage 5 mg daily holding parameters
home bisoprolol resumed with holding parameters
home losartan resumed
continuing hold hydralazine for now
#� Anemia - chronic, likely from chronic disease
H&H stable
#� Heart failure - chronic diastolic
#Acute on Chronic HFpEF 11/19
home bisoprolol resumed
weight up
Acute Hypoxic respiratory Insufficiency/failure
[correction to prior documentation] bumex was restarted as IV 11/19
weight since improved, weaned of oxygen supplementation
bumex to transition back to PO 11/21 home dose 1 mg daily
#� Chronic wounds - change dressings as needed
# upper ext poor wound healing
-limit lab draws as possible
-Vitamin C supplementation started
-Multivitamin
#� Cirrhosis - continue xifaxan lactulose
limited abd US appreciated no ascites
# Paroxysmal afib - continue eliquis.� No signs of bleeding
#Hypothyroidism
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
-cont thyroid supplementation
#Otherwise complex PMH with GERD, constipation, depression
Continue usual home meds
Full code
Eliquis for DVTp
gi ppx Protonix
Medically stable for discharge SNF rehab with outpatient follow up recommendations. Images have been given to provider as outpatient.
Discussed with patient. Discussed with RN.
Anticipated Discharge: Today
Subjective/Interval History
-
Date of Service: November 26, 2023
No new complaints. No shortness of breath or chest pain.
Objective Data
-
Vital Signs:
Vital Signs
Temp Pulse Resp BP Pulse Ox
98 F 102 12 143/85 93
11/26/23 07:05 11/26/23 08:26 11/26/23 07:05 11/26/23 08:26 11/26/23 07:05
I&O
11/25/23 11/26/23 11/27/23
06:59 06:59 06:59
Intake Total 1380 / 1380 580 / 580
Balance 1380 / 1380 580 / 580
--- NOTE | 2023-11-26 15:01 | CM ---
Addendum entered by Fabi Mclean 11/26/23 15:18:
Per ortho on-call, confirmation of partial WB status
Will await documentation
Original Note:
CM received call from dtr requesting update on dc planning
Only accepting SNF at this time is [facility] and dtr refused
Dtr noting [facility] acute rehab is 1st choice- referral already sent and pending
Call with admissions- they will review referral
Of note, dtr advises that ortho spoke with ortho physician at [facility] day prior
WB allegedly changed to partial/25%
Outreach to on-call ortho/Dr Monaco to confirm
Awaiting confirmation and clinical documentation of change in WB status
Pt will require BC auth for rehab
Discharge Disposition- [facility] vs SNF
[2023-11-26 15:05] VITALS: BP 95/57
[2023-11-26 23:19] VITALS: BP 108/60
[2023-11-27 05:06] VITALS: BMI 36.1
[2023-11-27] MEDS: SYNTHROID 100 MCG PO (06:15)
[2023-11-27 07:05] VITALS: BP 139/74
[2023-11-27] MEDS: PROTONIX 40 MG PO (08:20)
[2023-11-27] MEDS: ZEBETA 5 MG PO (08:20)
[2023-11-27] MEDS: TYLENOL 1000 MG PO ×2 (08:20→20:39)
[2023-11-27] MEDS: BUMEX 1 MG PO (08:20)
[2023-11-27] MEDS: CYTOMEL 5 MICROGRAM PO (08:20)
[2023-11-27] MEDS: THERAGRAN 1 TABLET PO (08:20)
[2023-11-27] MEDS: NORVASC 5 MG PO (08:21)
[2023-11-27] MEDS: XIFAXAN 550 MG PO ×2 (08:21→20:39)
[2023-11-27] MEDS: PROZAC 20 MG PO (08:21)
[2023-11-27] MEDS: COZAAR 100 MG PO (08:21)
[2023-11-27] MEDS: DELTASONE 5 MG PO (08:22)
[2023-11-27] MEDS: ELIQUIS 5 MG PO ×2 (08:22→20:39)
[2023-11-27] MEDS: DUPHALAC/CHRONULAC PO ×2 (08:22→20:41)
[2023-11-27] MEDS: LIDOCAINE 4% PATCH TOPICAL (08:22)
[2023-11-27] MEDS: VITAMIN C 250 MG PO (08:22)
[2023-11-27] MEDS: DESENEX/MITRAZOL/ZEASORB 1 APPLIC TOPICAL ×2 (08:23→20:38)
--- NOTE | 2023-11-27 08:23 | W.PN.HOSP.TC ---
Today's Communication/Plan
-
Continue current management. Discharge planning in progress
Assessment / Plan
Assessment / Plan
Physical Exam
General: Well Developed, Well Nourished, No Apparent Distress, Comfortable and Obese
HEENT: [place] Conjunctivae, Nose Appears Normal and Ears Appear Normal, mild injected sclera b/l
Respiratory: Decreased Breath Sounds, faint bibasilar crackles
Cardiac: S1/S2, Regular Rhythm faint heart sounds
GI: Soft, Non Tender and distended vs obesity
Musculoskeletal: Bilateral lower extremity edema. No Clubbing, No Cyanosis
Skin: Warm, Dry and Rash (several breaks/bruising in her skin on UE likely combination poor wound healing due to steroids poor nutrition)
Neuro: Awake Alert Conversant
Psych: Calm Cooperative
78F with hx Obesity recent leg fx [facility] p[facility] HFpEF HTN HLD DM adrenal insufficiency MAZARIEGOS Cirrhosis here with TME sepsis UTI.
#Recent left lower extremity fracture
Outpatient orthopedic coordinating care and as per family there were plans to repeat images this week to assess for weightbearing status
licensing manager working on discharge disposition
I discussed with our orthopedic on-call Dr. Chavez on 11/23 and he can look at the x-ray but he cannot recommend weightbearing status since he does not know all the details intraoperative and postop and would rather recommend follow-up with
outpatient orthopedic to make final decision of weightbearing status.� I discussed with daughter three times on 11/23 and then on follow up next day. Patient had a femoral fracture on 10/06 and had surgery on 10/[address] Maria D eJesus Verduzco
orthopedic at [facility]. Daughter will try to get x-ray films and report to her outpatient orthopedic.
Updated family at bedside on 11/23.
I discussed with orthopedic again on 11/24. They already left a note on the chart to the extent of their recommendations.
Discussed with at bedside today on 11/25.
CM working on discharge disposition
X-ray of the femur:
INDINGS/impression:
There is a long intramedullary adrianne extending through the left femur. The patient is status post gamma nail fixation of a proximal femoral fracture. There is a greater trochanteric fracture component which is displaced laterally approximately 2.3 cm;
the gamma nail appears to extend through this greater trochanteric component. Along the medial margin of the proximal femur, distal to the lesser trochanter, there is a slightly angulated and medially displaced fracture component with displacement
of approximately 1.4 cm. There is an isolated fracture of the lesser trochanter, with approximately 8 mm medial displacement. The femoral head remains situated within the acetabulum.
#� Sepsis, urinary source, resistant organism
IV fluids completed
Follow cultures NGTD
ID eval appreciated meropenem switched to fosfomycin given tremors possibly associated to meropenem, 3 days abx treatment completed as per ID
Urology Eval Appreciated
#Hypoxia
Check pulse ox at rest and on exertion to assess for home oxygen needs
#Lactic acidosis persists possibly d/t poor clearance Liver dysfunction/cirrhosis
received multiple IVF bolus
since resolved
CT (limited by motion) noted
-Minimal amount of left pleural fluid. Parenchymal opacity within the visualized lower lungs, most likely atelectasis (incentive spirometry ordered)
-calcified gallstones, No gross evidence to suggest cholecystitis
-Cirrhotic liver.
-Atrophic adrenal glands bilaterally
-Enlarged right renal pelvis and proximal to mid right ureter, with normal caliber distal right ureter, no convincing evidence for right ureteral calculus (as per urology's review of imaging, enlargement likely d/t Rt UPJ obstruction cogenital
abnormality no intervention required)
-Mild dilation of the common iliac arteries bilaterally. Tortuosity of the abdominal aorta with no evidence for abdominal aortic aneurysm.
-Moderate distention of the rectum with stool, transverse measures 6.5 cm. No convincing evidence for stercoral colitis. (once suppository 11/14 administered with subsequent moderate bowel movement noted)
-Moderate amount of subcutaneous edema. Not mentioned above, there is also a small moderate amount of presacral edema.
-Mild superior endplate depression of the T10, T11, T12, and L4 vertebral bodies. Age is uncertain, although these findings appear new since of bowel radiograph of July 10, 2012. Please correlate with any acute symptoms.
-Previous vertebroplasty involving L1, L2, and L3.
-Top normal lymph nodes in the portacaval region. There is an enlarged interaortocaval lymph node. These are nonspecific, and could be inflammatory or neoplastic. Statistically, these are probably more likely to be reactive inflammatory lymph nodes.
#� Adrenal insufficiency - chronic issue
Stress dose IV steroids tapered back to home prednisone regimen 5 mg daily
#� Low Na, may be from decreased po and adrenal issues
Improved/resolved with IV steroids IVF NS
Cont to monitor
IVF since completed, steroid taper as above
#hypokalemia
#hypophosphatemia
monitor and replete as necessary
#� SANTOSH resolved
Cr improved likely baseline 1.0-1.1
IVF completed
monitor kidney function
#blurry vision both eyes, left eye injection, possible conjunctivitis resolved
-Maxitrol eye drop treatment completed
-monitor response
-ophthalmology eval appreciated no acute abn's outpatient follow up recommended
#Tremor ext's new onset unclear etiology
-Neuro eval appreciated likely physiologic tremor, CT head appreciated no acute abn's, checking for other potential metabolic causes
#� Essential HTN - antihypertensives held for low normotensive pressures
resumed home amlodipine at reduced dosage 5 mg daily holding parameters
home bisoprolol resumed with holding parameters
home losartan resumed
continuing hold hydralazine for now
#� Anemia - chronic, likely from chronic disease
H&H stable
#� Heart failure - chronic diastolic
#Acute on Chronic HFpEF 11/19
home bisoprolol resumed
weight up
Acute Hypoxic respiratory Insufficiency/failure
[correction to prior documentation] bumex was restarted as IV 11/19
weight since improved, weaned of oxygen supplementation
bumex to transition back to PO 11/21 home dose 1 mg daily
#� Chronic wounds - change dressings as needed
# upper ext poor wound healing
-limit lab draws as possible
-Vitamin C supplementation started
-Multivitamin
#� Cirrhosis - continue xifaxan lactulose
limited abd US appreciated no ascites
# Paroxysmal afib - continue eliquis.� No signs of bleeding
#Hypothyroidism
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
-cont thyroid supplementation
#Otherwise complex PMH with GERD, constipation, depression
Continue usual home meds
Full code
Eliquis for DVTp
gi ppx Protonix
Medically stable for discharge SNF rehab with outpatient follow up recommendations. Images have been given to provider as outpatient.
Discussed with patient. Discussed with RN.
Anticipated Discharge: 24 - 48 hours
Subjective/Interval History
-
Date of Service: November 27, 2023
Denies any complaints. No chest pain or shortness of breath.
Objective Data
-
Vital Signs:
Vital Signs
Temp Pulse Resp BP Pulse Ox
98 F 71 18 139/74 95
11/27/23 07:05 11/27/23 07:05 11/27/23 07:05 11/27/23 07:05 11/27/23 07:05
I&O
11/26/23 11/27/23 11/28/23
06:59 06:59 06:59
Intake Total 580 / 580 1080 / 1080
Balance 580 / 580 1080 / 1080
[2023-11-27 15:05] VITALS: BP 112/66
--- NOTE | 2023-11-27 15:41 | PTCARENOTE ---
Family provided paperwork from [facility] stating to allow 10% weightbearing to left lower extremity and follow up with orthopedic doctor 3 weeks for repeat x-rays. Dr. Haynes and Case management made aware and paperwork placed in
chart.
[2023-11-27 15:48] VITALS: BP 115/69; PULSE 80; O2SAT 98
--- NOTE | 2023-11-27 16:10 | CM ---
CM was provided copy of paperwork from original surgeon from 11.03.23 indicating 10% W/B
Instructions indicate need for repeat x-rays in 3 days- pt notes these x-rays were completed while at [facility]
Bedside meeting with pt and spouse
Requesting paperwork from surgeon's office post x-rays
Per spouse, dtr will provide off of patient protal tomorrow
Copy of 11.03.23 dc instructions on chart
Discharge Disposition- acute vs SNF
--- NOTE | 2023-11-27 18:41 | PTCARENOTE ---
Patient three assist with sliding board from recliner back to bed.
[2023-11-27 23:17] VITALS: BP 111/62
[2023-11-28 06:00] VITALS: BMI 36.7
[2023-11-28] MEDS: SYNTHROID 100 MCG PO (06:03)
--- NOTE | 2023-11-28 06:49 | W.PN.HOSP.TC ---
Today's Communication/Plan
-
Medically stable for discharge awaiting placement
Assessment / Plan
Assessment / Plan
Physical Exam
General: Well Developed, Well Nourished, No Apparent Distress, Comfortable and Obese
HEENT: [place] Conjunctivae, Nose Appears Normal and Ears Appear Normal, mild injected sclera b/l
Respiratory: Decreased Breath Sounds, faint bibasilar crackles
Cardiac: S1/S2, Regular Rhythm faint heart sounds
GI: Soft, Non Tender and distended vs obesity
Musculoskeletal: Bilateral lower extremity edema. No Clubbing, No Cyanosis
Skin: Warm, Dry and Rash (several breaks/bruising in her skin on UE likely combination poor wound healing due to steroids poor nutrition)
Neuro: Awake Alert Conversant
Psych: Calm Cooperative
78F with hx Obesity recent leg fx [facility] p[facility] HFpEF HTN HLD DM adrenal insufficiency MAZARIEGOS Cirrhosis here with TME sepsis UTI.
#Recent left lower extremity fracture
Outpatient orthopedic coordinating care and as per family there were plans to repeat images this week to assess for weightbearing status
technical product manager working on discharge disposition
I discussed with our orthopedic on-call Dr. Chavez on 11/23 and he can look at the x-ray but he cannot recommend weightbearing status since he does not know all the details intraoperative and postop and would rather recommend follow-up with
outpatient orthopedic to make final decision of weightbearing status.� I discussed with daughter three times on 11/23 and then on follow up next day. Patient had a femoral fracture on 10/06 and had surgery on 10/[address] Maria De Jesus Verduzco
orthopedic at [facility]. Daughter will try to get x-ray films and report to her outpatient orthopedic.
Updated family at bedside on 11/23.
I discussed with orthopedic again on 11/24. They already left a note on the chart to the extent of their recommendations.
Discussed with at bedside today on 11/25.
CM working on discharge disposition
X-ray of the femur:
INDINGS/impression:
There is a long intramedullary adrianne extending through the left femur. The patient is status post gamma nail fixation of a proximal femoral fracture. There is a greater trochanteric fracture component which is displaced laterally approximately 2.3 cm;
the gamma nail appears to extend through this greater trochanteric component. Along the medial margin of the proximal femur, distal to the lesser trochanter, there is a slightly angulated and medially displaced fracture component with displacement
of approximately 1.4 cm. There is an isolated fracture of the lesser trochanter, with approximately 8 mm medial displacement. The femoral head remains situated within the acetabulum.
#� Sepsis, urinary source, resistant organism
IV fluids completed
Follow cultures NGTD
ID eval appreciated meropenem switched to fosfomycin given tremors possibly associated to meropenem, 3 days abx treatment completed as per ID
Urology Eval Appreciated
#Hypoxia
Check pulse ox at rest and on exertion to assess for home oxygen needs
#Lactic acidosis persists possibly d/t poor clearance Liver dysfunction/cirrhosis
received multiple IVF bolus
since resolved
CT (limited by motion) noted
-Minimal amount of left pleural fluid. Parenchymal opacity within the visualized lower lungs, most likely atelectasis (incentive spirometry ordered)
-calcified gallstones, No gross evidence to suggest cholecystitis
-Cirrhotic liver.
-Atrophic adrenal glands bilaterally
-Enlarged right renal pelvis and proximal to mid right ureter, with normal caliber distal right ureter, no convincing evidence for right ureteral calculus (as per urology's review of imaging, enlargement likely d/t Rt UPJ obstruction cogenital
abnormality no intervention required)
-Mild dilation of the common iliac arteries bilaterally. Tortuosity of the abdominal aorta with no evidence for abdominal aortic aneurysm.
-Moderate distention of the rectum with stool, transverse measures 6.5 cm. No convincing evidence for stercoral colitis. (once suppository 11/14 administered with subsequent moderate bowel movement noted)
-Moderate amount of subcutaneous edema. Not mentioned above, there is also a small moderate amount of presacral edema.
-Mild superior endplate depression of the T10, T11, T12, and L4 vertebral bodies. Age is uncertain, although these findings appear new since of bowel radiograph of July 10, 2012. Please correlate with any acute symptoms.
-Previous vertebroplasty involving L1, L2, and L3.
-Top normal lymph nodes in the portacaval region. There is an enlarged interaortocaval lymph node. These are nonspecific, and could be inflammatory or neoplastic. Statistically, these are probably more likely to be reactive inflammatory lymph nodes.
#� Adrenal insufficiency - chronic issue
Stress dose IV steroids tapered back to home prednisone regimen 5 mg daily
#� Low Na, may be from decreased po and adrenal issues
Improved/resolved with IV steroids IVF NS
Cont to monitor
IVF since completed, steroid taper as above
#hypokalemia
#hypophosphatemia
monitor and replete as necessary
#� SANTOSH resolved
Cr improved likely baseline 1.0-1.1
IVF completed
monitor kidney function
#blurry vision both eyes, left eye injection, possible conjunctivitis resolved
-Maxitrol eye drop treatment completed
-monitor response
-ophthalmology eval appreciated no acute abn's outpatient follow up recommended
#Tremor ext's new onset unclear etiology
-Neuro eval appreciated likely physiologic tremor, CT head appreciated no acute abn's, checking for other potential metabolic causes
#� Essential HTN - antihypertensives held for low normotensive pressures
resumed home amlodipine at reduced dosage 5 mg daily holding parameters
home bisoprolol resumed with holding parameters
home losartan resumed
continuing hold hydralazine for now
#� Anemia - chronic, likely from chronic disease
H&H stable
#� Heart failure - chronic diastolic
#Acute on Chronic HFpEF 11/19
home bisoprolol resumed
weight up
Acute Hypoxic respiratory Insufficiency/failure
[correction to prior documentation] bumex was restarted as IV 11/19
weight since improved, weaned of oxygen supplementation
bumex to transition back to PO 11/21 home dose 1 mg daily
#� Chronic wounds - change dressings as needed
# upper ext poor wound healing
-limit lab draws as possible
-Vitamin C supplementation started
-Multivitamin
#� Cirrhosis - continue xifaxan lactulose
limited abd US appreciated no ascites
# Paroxysmal afib - continue eliquis.� No signs of bleeding
#Hypothyroidism
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
-cont thyroid supplementation
#Otherwise complex PMH with GERD, constipation, depression
Continue usual home meds
Full code
Eliquis for DVTp
gi ppx Protonix
Medically stable for discharge SNF rehab with outpatient follow up recommendations. Images have been given to provider as outpatient.
Discussed with patient and her daughter Ethel
I spent a total of 40 minutes with the patient or on the floor. More than 50% of this time involved counseling and coordination of care.
Anticipated Discharge: Within 24 hours
Subjective/Interval History
-
Date of Service: November 28, 2023
No new acute issues. Patient reports feeling well.
Objective Data
-
Vital Signs:
Vital Signs
Temp Pulse Resp BP Pulse Ox
98.5 F 96 18 111/62 95
11/27/23 23:17 11/27/23 23:17 11/27/23 23:17 11/27/23 23:17 11/27/23 23:17
I&O
11/26/23 11/27/23 11/28/23
06:59 06:59 06:59
Intake Total 580 / 580 1080 / 1080 1060 / 1060
Balance 580 / 580 1080 / 1080 1060 / 1060
[2023-11-28 07:00] VITALS: BP 138/82
--- NOTE | 2023-11-28 08:00 | W.PN.UPDATE ---
Update Note
Progress Note Update
Did speak with patient's daughter on the phone Tuesday evening and she has been in touch with the patient's surgeon of record. They were recommending 25 percent weight bearing to the operative extremity and I would certainly defer to their
recommendations. Please reach out with any questions or concerns.
[2023-11-28] MEDS: COZAAR 100 MG PO (08:35)
[2023-11-28] MEDS: DUPHALAC/CHRONULAC PO ×2 (08:35→20:43)
[2023-11-28] MEDS: PROZAC 20 MG PO (08:35)
[2023-11-28] MEDS: PROTONIX 40 MG PO (08:36)
[2023-11-28] MEDS: TYLENOL 1000 MG PO ×2 (08:36→20:43)
[2023-11-28] MEDS: BUMEX 1 MG PO (08:36)
[2023-11-28] MEDS: DELTASONE 5 MG PO (08:36)
[2023-11-28] MEDS: VITAMIN B-12 1000 MCG PO (08:36)
[2023-11-28] MEDS: VITAMIN C 250 MG PO (08:36)
[2023-11-28] MEDS: XIFAXAN 550 MG PO ×2 (08:36→20:43)
[2023-11-28] MEDS: THERAGRAN 1 TABLET PO (08:36)
[2023-11-28] MEDS: ZEBETA 5 MG PO (08:36)
[2023-11-28] MEDS: CYTOMEL 5 MICROGRAM PO (08:36)
[2023-11-28] MEDS: DESENEX/MITRAZOL/ZEASORB 1 APPLIC TOPICAL ×2 (08:37→20:44)
[2023-11-28] MEDS: NORVASC 5 MG PO (08:37)
[2023-11-28] MEDS: ELIQUIS 5 MG PO ×2 (08:37→20:44)
[2023-11-28] MEDS: LIDOCAINE 4% PATCH TOPICAL (08:38)
[2023-11-28 15:00] VITALS: BP 103/57
--- NOTE | 2023-11-28 15:00 | CM ---
[facility] Ortho Surgeon has written note deferring to Operative Surgeon's recommendation for 25% weight bearing status on L LE. Referrals have been updated and forwarded. Per daughter request, updated referral also forwarded to [facility] acute rehab.
Will await responses.
[2023-11-28 15:18] VITALS: BP 102/63; PULSE 77; O2SAT 94
[2023-11-28 15:29] VITALS: BP 102/63; PULSE 91; O2SAT 93
[2023-11-28 23:19] VITALS: BP 105/61
[2023-11-29] MEDS: SYNTHROID 100 MCG PO (04:37)
[2023-11-29 05:39] VITALS: BMI 37.4
[2023-11-29] MEDS: BUMEX 1 MG PO ×2 (07:46→20:54)
[2023-11-29] MEDS: VITAMIN C 250 MG PO (07:47)
[2023-11-29] MEDS: PROZAC 20 MG PO (07:47)
[2023-11-29] MEDS: CYTOMEL 5 MICROGRAM PO (07:47)
[2023-11-29] MEDS: ZEBETA 5 MG PO (07:47)
[2023-11-29] MEDS: COZAAR 100 MG PO (07:47)
[2023-11-29] MEDS: PROTONIX 40 MG PO (07:48)
[2023-11-29] MEDS: TYLENOL 1000 MG PO ×2 (07:48→22:17)
[2023-11-29] MEDS: XIFAXAN 550 MG PO ×2 (07:48→20:53)
[2023-11-29] MEDS: DELTASONE 5 MG PO (07:48)
[2023-11-29] MEDS: ELIQUIS 5 MG PO ×2 (07:48→20:53)
[2023-11-29] MEDS: NORVASC PO (07:48)
[2023-11-29] MEDS: THERAGRAN 1 TABLET PO (07:48)
[2023-11-29] MEDS: DUPHALAC/CHRONULAC PO ×2 (07:48→20:54)
[2023-11-29] MEDS: LIDOCAINE 4% PATCH TOPICAL (07:49)
[2023-11-29] MEDS: DESENEX/MITRAZOL/ZEASORB 1 APPLIC TOPICAL ×2 (07:51→20:53)
--- NOTE | 2023-11-29 07:53 | W.PN.HOSP.TC ---
Today's Communication/Plan
-
fluid restriction
increased Bumex BID
follow up AM BMP
mucinex
daily weight I/O
Assessment / Plan
Assessment / Plan
Physical Exam
General: Well Developed, Well Nourished, No Apparent Distress, Comfortable and Obese
HEENT: [place] Conjunctivae, Nose Appears Normal and Ears Appear Normal, mild injected sclera b/l
Respiratory: Decreased Breath Sounds, diffuse crackles
Cardiac: S1/S2, Regular Rhythm faint heart sounds
GI: Soft, Non Tender and distended vs obesity
Musculoskeletal: Bilateral lower extremity edema. No Clubbing, No Cyanosis
Skin: Warm, Dry and Rash (several breaks/bruising in her skin on UE likely combination poor wound healing due to steroids poor nutrition)
Neuro: Awake Alert Conversant
Psych: Calm Cooperative
78F with hx Obesity recent leg fx [facility] p[facility] HFpEF HTN HLD DM adrenal insufficiency MAZARIEGOS Cirrhosis here with TME sepsis UTI.
#Recent left lower extremity fracture
Patient had a femoral fracture on 10/06 and had surgery on 10/[address] Maria De Jesus Verduzco orthopedic at [facility].
Outpatient Orthopedic recommendation appreciated 25% weightbearing as tolerated LLE
X-ray of the femur:
There is a long intramedullary adrianne extending through the left femur. The patient is status post gamma nail fixation of a proximal femoral fracture. There is a greater trochanteric fracture component which is displaced laterally approximately 2.3 cm;
the gamma nail appears to extend through this greater trochanteric component. Along the medial margin of the proximal femur, distal to the lesser trochanter, there is a slightly angulated and medially displaced fracture component with displacement
of approximately 1.4 cm. There is an isolated fracture of the lesser trochanter, with approximately 8 mm medial displacement. The femoral head remains situated within the acetabulum.
#� Sepsis, urinary source, resistant organism
IV fluids completed
Follow cultures NGTD
ID eval appreciated meropenem switched to fosfomycin given tremors possibly associated to meropenem, 3 days abx treatment completed as per ID
Urology Eval Appreciated
#Hypoxia possibly due to sepsis as above vs iatrogenic fluid overload improved with restart diuresis
weaned off oxygen supplementation saturating well on room air
#Lactic acidosis persists possibly d/t poor clearance Liver dysfunction/cirrhosis
received multiple IVF bolus
since resolved
CT (limited by motion) noted
-Minimal amount of left pleural fluid. Parenchymal opacity within the visualized lower lungs, most likely atelectasis (incentive spirometry ordered)
-calcified gallstones, No gross evidence to suggest cholecystitis
-Cirrhotic liver.
-Atrophic adrenal glands bilaterally
-Enlarged right renal pelvis and proximal to mid right ureter, with normal caliber distal right ureter, no convincing evidence for right ureteral calculus (as per urology's review of imaging, enlargement likely d/t Rt UPJ obstruction cogenital
abnormality no intervention required)
-Mild dilation of the common iliac arteries bilaterally. Tortuosity of the abdominal aorta with no evidence for abdominal aortic aneurysm.
-Moderate distention of the rectum with stool, transverse measures 6.5 cm. No convincing evidence for stercoral colitis. (once suppository 11/14 administered with subsequent moderate bowel movement noted)
-Moderate amount of subcutaneous edema. Not mentioned above, there is also a small moderate amount of presacral edema.
-Mild superior endplate depression of the T10, T11, T12, and L4 vertebral bodies. Age is uncertain, although these findings appear new since of bowel radiograph of July 10, 2012. Please correlate with any acute symptoms.
-Previous vertebroplasty involving L1, L2, and L3.
-Top normal lymph nodes in the portacaval region. There is an enlarged interaortocaval lymph node. These are nonspecific, and could be inflammatory or neoplastic. Statistically, these are probably more likely to be reactive inflammatory lymph nodes.
#� Adrenal insufficiency - chronic issue
Stress dose IV steroids tapered back to home prednisone regimen 5 mg daily
#� Low Na, may be from decreased po and adrenal issues
Improved/resolved with IV steroids IVF NS
Cont to monitor
IVF since completed, steroid taper as above
#hypokalemia
#hypophosphatemia
monitor and replete as necessary
#� SANTOSH resolved
Cr improved likely baseline 1.0-1.1
IVF completed
monitor kidney function
#blurry vision both eyes, left eye injection, possible conjunctivitis resolved
-Maxitrol eye drop treatment completed
-monitor response
-ophthalmology eval appreciated no acute abn's outpatient follow up recommended
#Tremor ext's new onset unclear etiology
-Neuro eval appreciated likely physiologic tremor, CT head appreciated no acute abn's, checking for other potential metabolic causes
#� Essential HTN - antihypertensives held for low normotensive pressures
resumed home amlodipine at reduced dosage 5 mg daily holding parameters
home bisoprolol resumed with holding parameters
home losartan resumed
continuing hold hydralazine for now
#� Anemia - chronic, likely from chronic disease
H&H stable
#� Heart failure - chronic diastolic
#Acute on Chronic HFpEF 11/19
home bisoprolol resumed
Acute Hypoxic respiratory Insufficiency/failure
[correction to prior documentation] bumex was restarted as IV 11/19
weight since improved, weaned of oxygen supplementation
bumex transitioned back to PO 11/21 home dose 1 mg daily
11/28 increased coughing, crackles on auscultation, weight gain, remains otherwise stable on room air non-labored respiration
COVID neg
flud restriction started
Bumex increased to BID, follow up AM BMP 11/29
Mucinex added
#� Chronic wounds - change dressings as needed
# upper ext poor wound healing
-limit lab draws as possible
-Vitamin C supplementation started
-Multivitamin
#� Cirrhosis - continue xifaxan lactulose
limited abd US appreciated no ascites
# Paroxysmal afib - continue eliquis.� No signs of bleeding
#Hypothyroidism
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
-cont thyroid supplementation
#Otherwise complex PMH with GERD, constipation, depression
Continue usual home meds
Full code
Eliquis for DVTp
gi ppx Protonix
Medically stable for discharge SNF rehab with outpatient follow up recommendations. Images have been given to provider as outpatient.
Discussed with patient, her Lawson, and her daughter Ethel
I spent a total of 50 minutes with the patient or on the floor. More than 50% of this time involved counseling and coordination of care.
Anticipated Discharge: 24 - 48 hours
Subjective/Interval History
-
Date of Service: November 29, 2023
increased coughing. Patient reports feeling mucus in the back of her throat but unable to bring up. weight gain noted along increased crackles on auscultation. remains stable on room air non-labored respiration at rest. Lawson present
during evaluation.
Objective Data
-
Vital Signs:
Vital Signs
Temp Pulse Resp BP Pulse Ox
98.1 F 112 18 119/74 97
11/28/23 23:19 11/29/23 07:48 11/28/23 23:19 11/29/23 07:48 11/28/23 23:19
I&O
11/28/23 11/29/23 11/30/23
06:59 06:59 06:59
Intake Total 1060 / 1060 900 / 900
Balance 1060 / 1060 900 / 900
[2023-11-29] MEDS: MUCINEX 600 MG PO ×2 (08:17→20:54)
[2023-11-29 15:26] VITALS: BP 107/51
[2023-11-29 16:30] LABS: COVID-19 Antigen Negative (Negative)
[2023-11-29] MEDS: KCL 20 MEQ PO (20:53)
[2023-11-29 23:32] VITALS: BP 127/82
[2023-11-30] MEDS: SYNTHROID 100 MCG PO (05:54)
[2023-11-30 06:15] LABS: Hematocrit 31.9 % (37.0-47.0); Hemoglobin 10.8 g/dL (12.0-16.0); Mean Corp Hgb Conc. 33.9 g/dL (33.0-37.0); Mean Corpuscular Hgb 31.9 pg (27.0-31.0); Mean Corpuscular Volume 94.1 fL (81.0-99.0); Mean Platelet Volume 10.7 fL (7.4-10.4); Platelet Count 123 10^3/uL (130-400); Red Blood Cell Count 3.39 10^6/uL (4.20-5.40); Red Cell Dist. Width 16.5 % (11.5-14.5); White Blood Cell Count 6.3 10^3/uL (4.8-10.8)
[2023-11-30 06:39] LABS: Blood Urea Nitrogen 21 mg/dl (7-17); Calcium 7.6 mg/dl (8.4-10.2); Carbon Dioxide 30 mmol/L (22-30); Chloride 102 mmol/L (98-107); Estimated Creatinine Clearance 52 ml/min; Glucose 83 mg/dl (70-99); Magnesium 1.7 mg/dl (1.6-2.3); Phosphorus 3.3 mg/dl (2.5-4.5); Potassium 3.5 mmol/L (3.5-5.1); Sodium 134 mmol/L (135-145); eGFR > 60.00
[2023-11-30 07:10] VITALS: BP 108/70
--- NOTE | 2023-11-30 08:07 | W.PN.HOSP.TC ---
Today's Communication/Plan
-
Remains medically stable for snf rehab discharge pending placement
Amlodipine placed on hold possible adverse effect contributing to lower extremity swelling
cont blood pressure control
mucinex
supplemental magnesium
Assessment / Plan
Assessment / Plan
Physical Exam
General: Well Developed, Well Nourished, No Apparent Distress, Comfortable and Obese
HEENT: [place] Conjunctivae, Nose Appears Normal and Ears Appear Normal, clear sclera b/l
Respiratory: Decreased Breath Sounds, crackles
Cardiac: S1/S2, Regular Rhythm faint heart sounds
GI: Soft, Non Tender and distended vs obesity
Musculoskeletal: Bilateral lower extremity edema swollen feet. No Clubbing, No Cyanosis
Skin: Warm, Dry and Rash (several breaks/bruising in her skin on UE likely combination poor wound healing due to steroids poor nutrition)
Neuro: Awake Alert Conversant
Psych: Calm Cooperative
78F with hx Obesity recent leg fx [facility] HFpEF HTN HLD DM adrenal insufficiency MAZARIEGOS Cirrhosis here with TME sepsis UTI.
#Recent left lower extremity fracture
Patient had a femoral fracture on 10/06 and had surgery on 10/[address] Maria De Jesus Verduzco orthopedic at [facility].
Outpatient Orthopedic recommendation appreciated 25% weightbearing as tolerated LLE
X-ray of the femur:
There is a long intramedullary adrianne extending through the left femur. The patient is status post gamma nail fixation of a proximal femoral fracture. There is a greater trochanteric fracture component which is displaced laterally approximately 2.3 cm;
the gamma nail appears to extend through this greater trochanteric component. Along the medial margin of the proximal femur, distal to the lesser trochanter, there is a slightly angulated and medially displaced fracture component with displacement
of approximately 1.4 cm. There is an isolated fracture of the lesser trochanter, with approximately 8 mm medial displacement. The femoral head remains situated within the acetabulum.
#� Sepsis, urinary source, resistant organism
IV fluids completed
Follow cultures NGTD
ID eval appreciated meropenem switched to fosfomycin given tremors possibly associated to meropenem, 3 days abx treatment completed as per ID
Urology Eval Appreciated
#Hypoxia possibly due to sepsis as above vs iatrogenic fluid overload improved with restart diuresis
weaned off oxygen supplementation saturating well on room air
#Lactic acidosis persists possibly d/t poor clearance Liver dysfunction/cirrhosis
received multiple IVF bolus
since resolved
CT (limited by motion) noted
-Minimal amount of left pleural fluid. Parenchymal opacity within the visualized lower lungs, most likely atelectasis (incentive spirometry ordered)
-calcified gallstones, No gross evidence to suggest cholecystitis
-Cirrhotic liver.
-Atrophic adrenal glands bilaterally
-Enlarged right renal pelvis and proximal to mid right ureter, with normal caliber distal right ureter, no convincing evidence for right ureteral calculus (as per urology's review of imaging, enlargement likely d/t Rt UPJ obstruction cogenital
abnormality no intervention required)
-Mild dilation of the common iliac arteries bilaterally. Tortuosity of the abdominal aorta with no evidence for abdominal aortic aneurysm.
-Moderate distention of the rectum with stool, transverse measures 6.5 cm. No convincing evidence for stercoral colitis. (once suppository 11/14 administered with subsequent moderate bowel movement noted)
-Moderate amount of subcutaneous edema. Not mentioned above, there is also a small moderate amount of presacral edema.
-Mild superior endplate depression of the T10, T11, T12, and L4 vertebral bodies. Age is uncertain, although these findings appear new since of bowel radiograph of July 10, 2012. Please correlate with any acute symptoms.
-Previous vertebroplasty involving L1, L2, and L3.
-Top normal lymph nodes in the portacaval region. There is an enlarged interaortocaval lymph node. These are nonspecific, and could be inflammatory or neoplastic. Statistically, these are probably more likely to be reactive inflammatory lymph nodes.
#� Adrenal insufficiency - chronic issue
Stress dose IV steroids tapered back to home prednisone regimen 5 mg daily
#� Low Na, may be from decreased po and adrenal issues
Improved/resolved with IV steroids IVF NS
Cont to monitor
IVF since completed, steroid taper as above
#hypokalemia
#hypophosphatemia
monitor and replete as necessary
#� SANTOSH resolved
Cr improved likely baseline 1.0-1.1
IVF completed
monitor kidney function
#blurry vision both eyes, left eye injection, possible conjunctivitis resolved
-Maxitrol eye drop treatment completed
-monitor response
-ophthalmology eval appreciated no acute abn's outpatient follow up recommended
#Tremor ext's new onset unclear etiology
-Neuro eval appreciated likely physiologic tremor, CT head appreciated no acute abn's, checking for other potential metabolic causes
#� Essential HTN - antihypertensives held for low normotensive pressures
cont bisoprolol losartan holding parameters
continuing hold hydralazine for now
Amlodipine placed on hold d/t persistent lower ext edema possible adverse effect
#� Anemia - chronic, likely from chronic disease
H&H stable
#� Heart failure - chronic diastolic
#Acute on Chronic HFpEF 11/19
home bisoprolol resumed
Acute Hypoxic respiratory Insufficiency/failure
[correction to prior documentation] bumex was restarted as IV 11/19
weight since improved, weaned of oxygen supplementation
bumex transitioned back to PO 11/21 home dose 1 mg daily
11/28 increased coughing, crackles on auscultation, weight gain, remains otherwise stable on room air non-labored respiration
COVID neg
flud restriction started
Bumex increased to BID, cont
Mucinex added
#� Chronic wounds - change dressings as needed
# upper ext poor wound healing
-limit lab draws as possible
-Vitamin C supplementation
-Multivitamin
#� Cirrhosis - continue xifaxan lactulose
limited abd US appreciated no ascites
# Paroxysmal afib - continue eliquis.� No signs of bleeding
#Hypothyroidism
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
-cont thyroid supplementation
#Otherwise complex PMH with GERD, constipation, depression
Continue usual home meds
Full code
Eliquis for DVTp
gi ppx Protonix
Remains Medically stable for discharge SNF rehab pending placement
I spent a total of 50 minutes with the patient or on the floor. More than 50% of this time involved counseling and coordination of care.
Anticipated Discharge: 24 - 48 hours
Subjective/Interval History
-
Date of Service: November 30, 2023
continues to report cough and lower ext swelling 'puffy feet'
Objective Data
-
Labs:
Laboratory Results
11/30/23
05:29
WBC 6.3
Hgb 10.8 L
Hct 31.9 L
Plt Count 123 L
Sodium 134 L
Potassium 3.5
Chloride 102
Carbon Dioxide 30
BUN 21 H
Creatinine 0.9
Glucose 83
Calcium 7.6 L
Vital Signs:
Vital Signs
Temp Pulse Resp BP Pulse Ox
98.6 F 82 16 108/70 93
11/30/23 07:10 11/30/23 07:10 11/30/23 07:10 11/30/23 07:10 11/30/23 07:10
I&O
11/29/23 11/30/23 12/01/23
06:59 06:59 06:59
Intake Total 900 / 900 840 / 840
Balance 900 / 900 840 / 840
[2023-11-30] MEDS: ZEBETA 5 MG PO (08:54)
[2023-11-30] MEDS: PROZAC 20 MG PO (08:54)
[2023-11-30] MEDS: VITAMIN C 250 MG PO (08:54)
[2023-11-30] MEDS: CYTOMEL 5 MICROGRAM PO (08:54)
[2023-11-30] MEDS: COZAAR PO (08:55)
[2023-11-30] MEDS: BUMEX 1 MG PO ×2 (08:56→20:20)
[2023-11-30] MEDS: TYLENOL 1000 MG PO ×2 (08:56→20:19)
[2023-11-30] MEDS: XIFAXAN 550 MG PO ×2 (08:56→20:20)
[2023-11-30] MEDS: MUCINEX 600 MG PO ×2 (08:56→20:20)
[2023-11-30] MEDS: KCL 20 MEQ PO ×2 (08:56→20:20)
[2023-11-30] MEDS: PROTONIX 40 MG PO (08:56)
[2023-11-30] MEDS: ELIQUIS 5 MG PO ×2 (08:56→20:19)
[2023-11-30] MEDS: NORVASC 5 MG PO (08:57)
[2023-11-30] MEDS: THERAGRAN 1 TABLET PO (08:57)
[2023-11-30] MEDS: LIDOCAINE 4% PATCH TOPICAL (08:57)
[2023-11-30] MEDS: DUPHALAC/CHRONULAC PO ×2 (08:57→20:20)
[2023-11-30] MEDS: DELTASONE 5 MG PO (08:57)
[2023-11-30] MEDS: DESENEX/MITRAZOL/ZEASORB 1 APPLIC TOPICAL ×2 (08:57→20:19)
[2023-11-30] MEDS: VITAMIN B-12 1000 MCG PO (08:57)
[2023-11-30 11:30] VITALS: BMI 37.8
[2023-11-30] MEDS: MAGNESIUM OXIDE 500 MG PO (13:13)
[2023-11-30 15:53] VITALS: BP 112/64
--- NOTE | 2023-11-30 16:06 | CM ---
OUT OF SEQUENCE NOTATION FOR 11/29/23:
Patient has been accepted to [facility] for penitentiary and rehab services. Requires insurance authorization. [facility]chis NPI # [id number], Dr. Bender NPI # [id number]. NURSE TO NURSE # [phone], FAX # [phone]. Anticipate
discharge 11/30/23.
--- NOTE | 2023-11-30 16:32 | CM ---
Patient for discharge to [facility] when insurance auth is received from [employer]. [facility] precert worksheet and medical records faxed to # [phone] this AM. . Awaiting auth. [facility] liaison, patient,
, daughter and team notified.
[2023-11-30 23:22] VITALS: BP 101/66
[2023-12-01 05:24] VITALS: BMI 36.9
[2023-12-01 06:09] LABS: Hematocrit 32.4 % (37.0-47.0); Hemoglobin 10.8 g/dL (12.0-16.0); Mean Corp Hgb Conc. 33.3 g/dL (33.0-37.0); Mean Corpuscular Hgb 31.4 pg (27.0-31.0); Mean Corpuscular Volume 94.2 fL (81.0-99.0); Mean Platelet Volume 10.9 fL (7.4-10.4); Platelet Count 107 10^3/uL (130-400); Red Blood Cell Count 3.44 10^6/uL (4.20-5.40); Red Cell Dist. Width 16.1 % (11.5-14.5); White Blood Cell Count 5.2 10^3/uL (4.8-10.8)
[2023-12-01] MEDS: SYNTHROID 100 MCG PO (06:20)
[2023-12-01 06:47] LABS: Blood Urea Nitrogen 23 mg/dl (7-17); Calcium 7.8 mg/dl (8.4-10.2); Carbon Dioxide 31 mmol/L (22-30); Chloride 98 mmol/L (98-107); Estimated Creatinine Clearance 58 ml/min; Glucose 76 mg/dl (70-99); Magnesium 1.7 mg/dl (1.6-2.3); Phosphorus 3.5 mg/dl (2.5-4.5); Potassium 3.5 mmol/L (3.5-5.1); Sodium 134 mmol/L (135-145); eGFR > 60.00
--- NOTE | 2023-12-01 07:14 | W.PN.HOSP.TC ---
Today's Communication/Plan
-
Medically stable for snf rehab pending insurance auth
blood pressure control
lena hernandez added
Assessment / Plan
Assessment / Plan
Physical Exam
General: Well Developed, Well Nourished, No Apparent Distress, Comfortable and Obese
HEENT: [place] Conjunctivae, Nose Appears Normal and Ears Appear Normal, clear sclera b/l
Respiratory: Decreased Breath Sounds, crackles
Cardiac: S1/S2, Regular Rhythm faint heart sounds
GI: Soft, Non Tender and distended vs obesity
Musculoskeletal: Bilateral lower extremity edema swollen feet. No Clubbing, No Cyanosis
Skin: Warm, Dry and Rash (several breaks/bruising in her skin on UE likely combination poor wound healing due to steroids poor nutrition)
Neuro: Awake Alert Conversant
Psych: Calm Cooperative
78F with hx Obesity recent leg fx [facility] p[facility] HFpEF HTN HLD DM adrenal insufficiency MAZARIEGOS Cirrhosis here with TME sepsis UTI.
#Recent left lower extremity fracture
Patient had a femoral fracture on 10/06 and had surgery on 10/[address] Maria De Jesus Verduzco orthopedic at [facility].
Outpatient Orthopedic recommendation appreciated 25% weightbearing as tolerated LLE
X-ray of the femur:
There is a long intramedullary adrianne extending through the left femur. The patient is status post gamma nail fixation of a proximal femoral fracture. There is a greater trochanteric fracture component which is displaced laterally approximately 2.3 cm;
the gamma nail appears to extend through this greater trochanteric component. Along the medial margin of the proximal femur, distal to the lesser trochanter, there is a slightly angulated and medially displaced fracture component with displacement
of approximately 1.4 cm. There is an isolated fracture of the lesser trochanter, with approximately 8 mm medial displacement. The femoral head remains situated within the acetabulum.
#� Sepsis, urinary source, resistant organism
IV fluids completed
Follow cultures NGTD
ID eval appreciated meropenem switched to fosfomycin given tremors possibly associated to meropenem, 3 days abx treatment completed as per ID
Urology Eval Appreciated
#Hypoxia possibly due to sepsis as above vs iatrogenic fluid overload improved with restart diuresis
weaned off oxygen supplementation saturating well on room air
#Lactic acidosis persists possibly d/t poor clearance Liver dysfunction/cirrhosis
received multiple IVF bolus
since resolved
CT (limited by motion) noted
-Minimal amount of left pleural fluid. Parenchymal opacity within the visualized lower lungs, most likely atelectasis (incentive spirometry ordered)
-calcified gallstones, No gross evidence to suggest cholecystitis
-Cirrhotic liver.
-Atrophic adrenal glands bilaterally
-Enlarged right renal pelvis and proximal to mid right ureter, with normal caliber distal right ureter, no convincing evidence for right ureteral calculus (as per urology's review of imaging, enlargement likely d/t Rt UPJ obstruction cogenital
abnormality no intervention required)
-Mild dilation of the common iliac arteries bilaterally. Tortuosity of the abdominal aorta with no evidence for abdominal aortic aneurysm.
-Moderate distention of the rectum with stool, transverse measures 6.5 cm. No convincing evidence for stercoral colitis. (once suppository 11/14 administered with subsequent moderate bowel movement noted)
-Moderate amount of subcutaneous edema. Not mentioned above, there is also a small moderate amount of presacral edema.
-Mild superior endplate depression of the T10, T11, T12, and L4 vertebral bodies. Age is uncertain, although these findings appear new since of bowel radiograph of July 10, 2012. Please correlate with any acute symptoms.
-Previous vertebroplasty involving L1, L2, and L3.
-Top normal lymph nodes in the portacaval region. There is an enlarged interaortocaval lymph node. These are nonspecific, and could be inflammatory or neoplastic. Statistically, these are probably more likely to be reactive inflammatory lymph nodes.
#� Adrenal insufficiency - chronic issue
Stress dose IV steroids tapered back to home prednisone regimen 5 mg daily
#� Low Na, may be from decreased po and adrenal issues
Improved/resolved with IV steroids IVF NS
Cont to monitor
IVF since completed, steroid taper as above
#hypokalemia
#hypophosphatemia
monitor and replete as necessary
#� SANTOSH resolved
Cr improved likely baseline 1.0-1.1
IVF completed
monitor kidney function
#blurry vision both eyes, left eye injection, possible conjunctivitis resolved
-Maxitrol eye drop treatment completed
-monitor response
-ophthalmology eval appreciated no acute abn's outpatient follow up recommended
#Tremor ext's new onset unclear etiology
-Neuro eval appreciated likely physiologic tremor, CT head appreciated no acute abn's, checking for other potential metabolic causes
#� Essential HTN - antihypertensives held for low normotensive pressures
cont bisoprolol losartan holding parameters
continuing hold hydralazine for now
Amlodipine placed on hold d/t persistent lower ext edema possible adverse effect, swelling since improved
#� Anemia - chronic, likely from chronic disease
H&H stable
#� Heart failure - chronic diastolic
#Acute on Chronic HFpEF 11/19
home bisoprolol resumed
Acute Hypoxic respiratory Insufficiency/failure
[correction to prior documentation] bumex was restarted as IV 11/19
weight since improved, weaned of oxygen supplementation
bumex transitioned back to PO 11/21 home dose 1 mg daily increased to BID for better control Heart Failure fluid overload
COVID neg
flud restriction started
Bumex increased to BID, cont
Mucinex added
Repeat CXR 11/30 noted no pneumonia, cardiomegaly unchanged
Impacted fracture left proximal humerus appreciated, known to patient and family who report fracture initial occurrence years ago, no new recent acute changes in left shoulder or new trauma as per patient/family
Left dedicate shoulder XR noted subacute
Orthopedic eval appreciated potential benefit outpatient follow up, no need for acute surgical intervention or change in weightbearing status left shoulder/upper ext at this time.
#� Chronic wounds - change dressings as needed
# upper ext poor wound healing
-limit lab draws as possible
-Vitamin C supplementation
-Multivitamin
#� Cirrhosis - continue xifaxan lactulose
limited abd US appreciated no ascites
# Paroxysmal afib - continue Eliquis.� No signs of bleeding
#Hypothyroidism
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
-cont thyroid supplementation
#Otherwise complex PMH with GERD, constipation, depression
Continue usual home meds
Full code
Eliquis for DVTp
gi ppx Protonix
Remains Medically stable for discharge SNF rehab pending placement
I spent a total of 50 minutes with the patient or on the floor. More than 50% of this time involved counseling and coordination of care.
Anticipated Discharge: 24 - 48 hours
Subjective/Interval History
-
Date of Service: December 01, 2023
Cough persists. Patient reports general malaise. Lower ext swelling feet 'puffiness' notably improved since hold on Amlodipine.
Objective Data
-
Labs:
Laboratory Results
12/01/23
05:12
WBC 5.2
Hgb 10.8 L
Hct 32.4 L
Plt Count 107 L
Sodium 134 L
Potassium 3.5
Chloride 98
Carbon Dioxide 31 H
BUN 23 H
Creatinine 0.8
Glucose 76
Calcium 7.8 L
Vital Signs:
Vital Signs
Temp Pulse Resp BP Pulse Ox
98.5 F 97 20 101/66 99
11/30/23 23:22 11/30/23 23:22 11/30/23 23:22 11/30/23 23:22 11/30/23 23:22
I&O
11/30/23 12/01/23 12/02/23
06:59 06:59 06:59
Intake Total 840 / 840 1520 / 1520
Balance 840 / 840 1520 / 1520
[2023-12-01 07:57] VITALS: BP 138/77
[2023-12-01] MEDS: XIFAXAN 550 MG PO ×2 (08:04→20:13)
[2023-12-01] MEDS: VITAMIN C 250 MG PO (08:04)
[2023-12-01] MEDS: PROZAC 20 MG PO (08:04)
[2023-12-01] MEDS: COZAAR 100 MG PO (08:04)
[2023-12-01] MEDS: CYTOMEL 5 MICROGRAM PO (08:05)
[2023-12-01] MEDS: PROTONIX 40 MG PO (08:05)
[2023-12-01] MEDS: DELTASONE 5 MG PO ×2 (08:05→10:14)
[2023-12-01] MEDS: TYLENOL 1000 MG PO ×2 (08:05→20:12)
[2023-12-01] MEDS: BUMEX 1 MG PO ×2 (08:05→20:15)
[2023-12-01] MEDS: MUCINEX 1200 MG PO ×2 (08:05→20:13)
[2023-12-01] MEDS: ZEBETA 5 MG PO (08:06)
[2023-12-01] MEDS: KCL 20 MEQ PO ×2 (08:06→20:14)
[2023-12-01] MEDS: ELIQUIS 5 MG PO ×2 (08:06→20:14)
[2023-12-01] MEDS: DUPHALAC/CHRONULAC PO ×2 (08:06→20:16)
[2023-12-01] MEDS: LIDOCAINE 4% PATCH TOPICAL (08:06)
[2023-12-01] MEDS: THERAGRAN 1 TABLET PO (08:06)
[2023-12-01] MEDS: DESENEX/MITRAZOL/ZEASORB 1 APPLIC TOPICAL ×2 (08:07→20:15)
--- NOTE | 2023-12-01 10:00 | PTCARENOTE ---
Patient complaining of progressing congestion and moist productive cough, states sputum is 'dark' - unwitnessed by this RN. Scheduled mucinex and deltasone given this AM, MD made aware of patient's complaints, order for PRN tessalon perles, extra
dose of deltasone, and CXR placed by MD.
[2023-12-01] MEDS: TESSALON PERLES 200 MG PO ×2 (10:14→20:20)
[2023-12-01 15:21] VITALS: BP 121/77
[2023-12-01 15:41] VITALS: BP 110/69; PULSE 96
--- NOTE | 2023-12-01 16:46 | CM ---
Discharge Plan of Care: Awaiting insurance auth for [facility] which was faxed 11/30/23.
--- NOTE | 2023-12-01 18:35 | CON.ORTHO ---
Consultation
-
Date/Time Consultation Requested: 12/01/2023 1705
Date/Time Consultation Performed: 12/01/2023 1600
Requesting Provider: Velvet Alvarenga
Performing Provider: Ward Grimes
Reason for Consultation: Left shoulder
Consultation - Orthopedics
History
Orthopedic Surgery Note
CC: Left shoulder fracture
HPI: 78-year-old female admitted to [facility] for infection treatment. Orthopedics was consulted to evaluate the left shoulder. The patient reports that several years ago she sustained a fall and was diagnosed with a proximal humerus
fracture. This was treated nonoperatively. She reports that the fracture is healed and she has had some residual stiffness in the left shoulder. She denies recent injury to the left shoulder. No shoulder pain acutely or subacutely. She did
undergo cephalomedullary nail for left proximal femur fracture at [facility] October 07, 2022. This was performed at [facility]. She has been partial weightbearing on the left lower extremity.
PMH/PSH: CHF, afib, HTN, adrenal insufficiency, cirrhosis
Medications: reviewed
Family History: Family history was reviewed. Noncontributory
Social history: Nonsmoker, no illicit drugs
Exam
General appearance: Pleasant. No acute distress.
Head: Normocephalic/atraumatic
Nose: No lesions or discharge.
Skin: ecchymosis about arms and legs
Lungs: No audible wheezing, no cough or sputum production
Musculoskeletal:
LUE:
skin intact without open wounds
fires r/u/m/ain/pin
sensation intact to light touch r/u/m
stiffness with active/passive left shoulder motion; no pain
Fingers wwp, 1+ radial pulse
No tenderness over bony prominences or with passive joint ROM
Imaging:
Xrays of the left shoulder performed 12/01/2023 show some mild deformity of the proximal femur consistent with prior fracture. There appears to be a nonunion of part of the posterior aspect of the greater tuberosity. No signs of advanced
posttraumatic glenohumeral osteoarthritis or osteonecrosis. There are some AC joint arthrosis.
AP:
78-year-old female with a remote history several years ago for left proximal humerus fracture. Patient cannot specify the date but denies recent injury to the left shoulder or acute pain. She has some residual posttraumatic stiffness. I reviewed
her x-rays which did not indicate a recent injury that may necessitate change in her weightbearing status or acute surgery. She may continue to use the left upper extremity weightbearing as tolerated with a walker as she heals from her left
proximal femur fracture. She may be a candidate for outpatient physical therapy for the left shoulder if the stiffness is affecting her quality of life. She may follow-up with an upper extremity specialist with [facility]
or with the [facility] group who she is seeing for the left hip.
Ward Grimes MD
> 75 minutes was spent reviewing the clinical information, evaluating the patient, and formulating clinical plan.
Allergies / Home Medications
Allergy/AdvReac Type Severity Reaction Status Date / Time
meropenem Allergy Intermediate tremors Unverified 11/21/23 08:36
Penicillins Allergy Hives Verified 10/17/19 16:15
amlodipine AdvReac Intermediate Swelling Verified 12/01/23 12:19
Medication Instructions Recorded
apixaban 5 mg tablet (Eliquis) 5 mg PO BID Blood clot 10/17/19
prevention/tx
levothyroxine 100 mcg tablet 100 mcg PO DAILY Thyroid 10/17/19
liothyronine 5 mcg tablet 5 mcg PO DAILY Thyroid 10/17/19
ondansetron HCl 4 mg tablet 4 mg PO Q8HPRN PRN nausea 10/17/19
rifaximin 550 mg tablet (Xifaxan) 550 mg PO BID Liver Issues 10/17/19
acetaminophen 500 mg tablet 1,000 mg PO BID Pain 11/12/23
(Tylenol Extra Strength)
amlodipine 10 mg tablet 10 mg PO DAILY Blood Pressure 11/12/23
benzocaine 15 mg-menthol 3.6 mg 1 ruth mucous membrane Q2H PRN sore 11/12/23
lozenges (Cepacol Sore Throat throat
(benzocaine-menthol))
bisacodyl 10 mg rectal suppository 10 mg WV DAILY PRN constipation 11/12/23
(Dulcolax (bisacodyl))
bisoprolol fumarate 5 mg tablet 5 mg PO DAILY Heart disease 11/12/23
bumetanide 1 mg tablet 1 mg PO DAILY Fluid 11/12/23
Retention/Swelling
calcium carbonate 1,000 mg tablet 1,000 mg PO TID Supplement 11/12/23
cholecalciferol (vitamin D3) 125 125 mcg PO DAILY Supplement 11/12/23
mcg (5,000 unit) tablet
cyanocobalamin (vitamin B-12) 1,000 mcg PO Q48H@0800 Supplement 11/12/23
1,000 mcg tablet
fluoxetine 20 mg capsule 20 mg PO DAILY Mental 11/12/23
Health/Anxiety
hydralazine 25 mg tablet 25 mg PO QID Blood Pressure 11/12/23
lactulose 20 gram/30 mL oral 20 g PO BID Liver Issues 11/12/23
solution
levofloxacin 750 mg tablet 750 mg PO DAILY Infection 11/12/23
losartan 100 mg tablet 100 mg PO DAILY Blood Pressure 11/12/23
magnesium hydroxide 400 mg/5 mL 30 ml PO DAILY PRN if no BM on day 11/12/23
oral suspension (Milk of Magnesia) 4 of no BM
naloxone 4 mg/actuation nasal 4 mg intranasal Q3M PRN opioid 11/12/23
spray (Narcan) suspected overdose
pantoprazole 40 mg tablet,delayed 40 mg PO DAILY Gastrointestinal 11/12/23
release Issue
prednisone 10 mg tablet 10 mg PO .TAPER ADRENAL INSUFF 11/12/23
simethicone 80 mg chewable tablet 160 mg PO QIDPRN PRN flatulence 11/12/23
sodium phosphates 19 gram-7 118 ml WV DAILYPRN PRN constipation 11/12/23
gram/118 mL enema (Fleet Enema)
wound dressings (Triad Wound 1 applic topical BID apply to left 11/12/23
Dressing paste) abd fold
Vital Signs / Lab Results
Temp Pulse Resp BP Pulse Ox
98.3 F 97 16 121/77 95
12/01/23 15:21 12/01/23 15:21 12/01/23 15:21 12/01/23 15:21 12/01/23 15:21
12/01/23 05:12
12/01/23 05:12
[2023-12-01 23:21] VITALS: BP 116/75
[2023-12-02] MEDS: SYNTHROID 100 MCG PO (05:41)
[2023-12-02 06:00] VITALS: BMI 37.0
[2023-12-02 06:15] LABS: Hematocrit 34.3 % (37.0-47.0); Hemoglobin 11.4 g/dL (12.0-16.0); Mean Corp Hgb Conc. 33.2 g/dL (33.0-37.0); Mean Corpuscular Hgb 31.5 pg (27.0-31.0); Mean Corpuscular Volume 94.8 fL (81.0-99.0); Mean Platelet Volume 11.4 fL (7.4-10.4); Platelet Count 117 10^3/uL (130-400); Red Blood Cell Count 3.62 10^6/uL (4.20-5.40); Red Cell Dist. Width 15.9 % (11.5-14.5); White Blood Cell Count 5.7 10^3/uL (4.8-10.8)
[2023-12-02 06:43] LABS: Blood Urea Nitrogen 22 mg/dl (7-17); Carbon Dioxide 30 mmol/L (22-30); Chloride 102 mmol/L (98-107); Estimated Creatinine Clearance 58 ml/min; Glucose 93 mg/dl (70-99); Magnesium 1.8 mg/dl (1.6-2.3); Phosphorus 4.2 mg/dl (2.5-4.5); Potassium 4.2 mmol/L (3.5-5.1); Sodium 135 mmol/L (135-145); eGFR > 60.00
--- NOTE | 2023-12-02 07:14 | W.PN.HOSP.TC ---
Today's Communication/Plan
-
Medically stable for snf rehab pending insurance auth
blood pressure control
mucinexlena prn added, protonix increased to bid for possible cough d/t GERD
Assessment / Plan
Assessment / Plan
Physical Exam
General: Well Developed, Well Nourished, No Apparent Distress, Comfortable and Obese
HEENT: [place] Conjunctivae, Nose Appears Normal and Ears Appear Normal, clear sclera b/l
Respiratory: Decreased Breath Sounds, crackles
Cardiac: S1/S2, Regular Rhythm faint heart sounds
GI: Soft, Non Tender and distended vs obesity
Musculoskeletal: Bilateral lower extremity edema swollen feet. No Clubbing, No Cyanosis
Skin: Warm, Dry and Rash (several breaks/bruising in her skin on UE likely combination poor wound healing due to steroids poor nutrition)
Neuro: Awake Alert Conversant
Psych: Calm Cooperative
78F with hx Obesity recent leg fx [facility] HFpEF HTN HLD DM adrenal insufficiency MAZARIEGOS Cirrhosis here with TME sepsis UTI.
#Recent left lower extremity fracture
Patient had a femoral fracture on 10/06 and had surgery on 10/[address] Maria De Jesus Verduzco orthopedic at [facility].
Outpatient Orthopedic recommendation appreciated 25% weightbearing as tolerated LLE
X-ray of the femur:
There is a long intramedullary adrianne extending through the left femur. The patient is status post gamma nail fixation of a proximal femoral fracture. There is a greater trochanteric fracture component which is displaced laterally approximately 2.3 cm;
the gamma nail appears to extend through this greater trochanteric component. Along the medial margin of the proximal femur, distal to the lesser trochanter, there is a slightly angulated and medially displaced fracture component with displacement
of approximately 1.4 cm. There is an isolated fracture of the lesser trochanter, with approximately 8 mm medial displacement. The femoral head remains situated within the acetabulum.
#� Sepsis, urinary source, resistant organism
IV fluids completed
Follow cultures NGTD
ID eval appreciated meropenem switched to fosfomycin given tremors possibly associated to meropenem, 3 days abx treatment completed as per ID
Urology Eval Appreciated
#Hypoxia possibly due to sepsis as above vs iatrogenic fluid overload improved with restart diuresis
weaned off oxygen supplementation saturating well on room air
#Lactic acidosis persists possibly d/t poor clearance Liver dysfunction/cirrhosis
received multiple IVF bolus
since resolved
CT (limited by motion) noted
-Minimal amount of left pleural fluid. Parenchymal opacity within the visualized lower lungs, most likely atelectasis (incentive spirometry ordered)
-calcified gallstones, No gross evidence to suggest cholecystitis
-Cirrhotic liver.
-Atrophic adrenal glands bilaterally
-Enlarged right renal pelvis and proximal to mid right ureter, with normal caliber distal right ureter, no convincing evidence for right ureteral calculus (as per urology's review of imaging, enlargement likely d/t Rt UPJ obstruction cogenital
abnormality no intervention required)
-Mild dilation of the common iliac arteries bilaterally. Tortuosity of the abdominal aorta with no evidence for abdominal aortic aneurysm.
-Moderate distention of the rectum with stool, transverse measures 6.5 cm. No convincing evidence for stercoral colitis. (once suppository 11/14 administered with subsequent moderate bowel movement noted)
-Moderate amount of subcutaneous edema. Not mentioned above, there is also a small moderate amount of presacral edema.
-Mild superior endplate depression of the T10, T11, T12, and L4 vertebral bodies. Age is uncertain, although these findings appear new since of bowel radiograph of July 10, 2012. Please correlate with any acute symptoms.
-Previous vertebroplasty involving L1, L2, and L3.
-Top normal lymph nodes in the portacaval region. There is an enlarged interaortocaval lymph node. These are nonspecific, and could be inflammatory or neoplastic. Statistically, these are probably more likely to be reactive inflammatory lymph nodes.
#� Adrenal insufficiency - chronic issue
Stress dose IV steroids tapered back to home prednisone regimen 5 mg daily
#� Low Na, may be from decreased po and adrenal issues
Improved/resolved with IV steroids IVF NS
Cont to monitor
IVF since completed, steroid taper as above
#hypokalemia
#hypophosphatemia
monitor and replete as necessary
#� SANTOSH resolved
Cr improved likely baseline 1.0-1.1
IVF completed
monitor kidney function
#blurry vision both eyes, left eye injection, possible conjunctivitis resolved
-Maxitrol eye drop treatment completed
-monitor response
-ophthalmology eval appreciated no acute abn's outpatient follow up recommended
#Tremor ext's new onset unclear etiology
-Neuro eval appreciated likely physiologic tremor, CT head appreciated no acute abn's, checking for other potential metabolic causes
#� Essential HTN - antihypertensives held for low normotensive pressures
cont bisoprolol losartan holding parameters
continuing hold hydralazine for now
Amlodipine placed on hold d/t persistent lower ext edema possible adverse effect, swelling since improved
#� Anemia - chronic, likely from chronic disease
H&H stable
#� Heart failure - chronic diastolic
#Acute on Chronic HFpEF 11/19
home bisoprolol resumed
Acute Hypoxic respiratory Insufficiency/failure
[correction to prior documentation] bumex was restarted as IV 11/19
weight since improved, weaned of oxygen supplementation
bumex transitioned back to PO 11/21 home dose 1 mg daily increased to BID for better control Heart Failure fluid overload
COVID neg
flud restriction started
Bumex increased to BID, cont
Mucinex added
Repeat CXR 11/30 noted no pneumonia, cardiomegaly unchanged
Impacted fracture left proximal humerus appreciated, known to patient and family who report fracture initial occurrence years ago, no new recent acute changes in left shoulder or new trauma as per patient/family
Left dedicate shoulder XR noted subacute
Orthopedic eval appreciated potential benefit outpatient follow up, no need for acute surgical intervention or change in weightbearing status left shoulder/upper ext at this time.
Persistent Cough
COVID Flu Neg
cont scheduled mucinex
prn Tessalon
Protonix increased to BID for possible cough d/t GERD
#� Chronic wounds - change dressings as needed
# upper ext poor wound healing
-limit lab draws as possible
-Vitamin C supplementation
-Multivitamin
#� Cirrhosis - continue xifaxan lactulose
limited abd US appreciated no ascites
# Paroxysmal afib - continue Eliquis.� No signs of bleeding
#Hypothyroidism
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
-cont thyroid supplementation
#Otherwise complex PMH with GERD, constipation, depression
Continue usual home meds
Full code
Eliquis for DVTp
gi ppx Protonix
Remains Medically stable for discharge SNF rehab pending placement
I spent a total of 50 minutes with the patient or on the floor. More than 50% of this time involved counseling and coordination of care.
Anticipated Discharge: 24 - 48 hours
Subjective/Interval History
-
Date of Service: December 02, 2023
Continues to report cough worse last night. Improved this morning with cough medication prn. No acute distress, appears comfortable at this time. Lawson present during evaluation.
Objective Data
-
Labs:
Laboratory Results
12/02/23
05:03
WBC 5.7
Hgb 11.4 L
Hct 34.3 L
Plt Count 117 L
Sodium 135
Potassium 4.2
Chloride 102
Carbon Dioxide 30
BUN 22 H
Creatinine 0.8
Glucose 93
Calcium 8.0 L
Vital Signs:
Vital Signs
Temp Pulse Resp BP Pulse Ox
98.1 F 107 16 116/75 94
12/01/23 23:21 12/01/23 23:21 12/01/23 23:21 12/01/23 23:21 12/01/23 23:21
I&O
12/01/23 12/02/23 12/03/23
06:59 06:59 06:59
Intake Total 1520 / 1520 1620 / 1620
Balance 1520 / 1520 1620 / 1620
[2023-12-02] MEDS: VITAMIN C 250 MG PO (07:56)
[2023-12-02] MEDS: PROZAC 20 MG PO (07:56)
[2023-12-02] MEDS: BUMEX 1 MG PO ×2 (07:56→19:57)
[2023-12-02] MEDS: XIFAXAN 550 MG PO ×2 (07:57→19:57)
[2023-12-02] MEDS: MUCINEX 1200 MG PO ×2 (07:57→19:58)
[2023-12-02] MEDS: ZEBETA 5 MG PO (07:57)
[2023-12-02] MEDS: COZAAR 100 MG PO (07:57)
[2023-12-02] MEDS: CYTOMEL 5 MICROGRAM PO (07:57)
[2023-12-02] MEDS: TYLENOL 1000 MG PO ×2 (07:57→19:57)
[2023-12-02] MEDS: VITAMIN B-12 1000 MCG PO (07:58)
[2023-12-02] MEDS: ELIQUIS 5 MG PO ×2 (07:58→19:57)
[2023-12-02] MEDS: DELTASONE 5 MG PO (07:58)
[2023-12-02] MEDS: PROTONIX 40 MG PO ×2 (07:58→19:57)
[2023-12-02] MEDS: DESENEX/MITRAZOL/ZEASORB 1 APPLIC TOPICAL ×2 (07:58→19:58)
[2023-12-02] MEDS: KCL 20 MEQ PO (07:58)
[2023-12-02] MEDS: THERAGRAN 1 TABLET PO (07:58)
[2023-12-02] MEDS: LIDOCAINE 4% PATCH TOPICAL (07:58)
[2023-12-02] MEDS: DUPHALAC/CHRONULAC PO ×2 (07:58→19:58)
[2023-12-02 07:59] VITALS: BP 145/74
[2023-12-02] MEDS: TESSALON PERLES 200 MG PO (08:07)
--- NOTE | 2023-12-02 11:40 | CM ---
Called [facility] for status of authorization request that was faxed on 11/30/23. They did receive documents and request but there is no determination as yet. Doc # [id number]. Juan noted review may take up to 14 days. Daughter, patient,
notified.
[2023-12-02 15:19] VITALS: BP 116/57
[2023-12-02 23:30] VITALS: BP 98/58
[2023-12-03] MEDS: SYNTHROID 100 MCG PO (05:45)
[2023-12-03 07:05] VITALS: BP 140/99
[2023-12-03 07:50] VITALS: BMI 36.9
--- NOTE | 2023-12-03 07:59 | W.PN.HOSP.TC ---
Today's Communication/Plan
-
discharge
Assessment / Plan
Assessment / Plan
Physical Exam
General: Well Developed, Well Nourished, No Apparent Distress, Comfortable and Obese
HEENT: [place] Conjunctivae, Nose Appears Normal and Ears Appear Normal, clear sclera b/l
Respiratory: Decreased Breath Sounds, crackles
Cardiac: S1/S2, Regular Rhythm faint heart sounds
GI: Soft, Non Tender and distended vs obesity
Musculoskeletal: Bilateral lower extremity edema swollen feet resolved. No Clubbing, No Cyanosis
Skin: Warm, Dry and Rash (several breaks/bruising in her skin on UE likely combination poor wound healing due to steroids poor nutrition)
Neuro: Awake Alert Conversant
Psych: Calm Cooperative
78F with hx Obesity recent leg fx [facility] pAfib HFpEF HTN HLD DM adrenal insufficiency MAZARIEGOS Cirrhosis here with TME sepsis UTI.
#Recent left lower extremity fracture
Patient had a femoral fracture on 10/06 and had surgery on 10/[address] Maria De Jesus Verduzco orthopedic at [facility].
Outpatient Orthopedic recommendation appreciated 25% weightbearing as tolerated LLE
X-ray of the femur:
There is a long intramedullary adrianne extending through the left femur. The patient is status post gamma nail fixation of a proximal femoral fracture. There is a greater trochanteric fracture component which is displaced laterally approximately 2.3 cm;
the gamma nail appears to extend through this greater trochanteric component. Along the medial margin of the proximal femur, distal to the lesser trochanter, there is a slightly angulated and medially displaced fracture component with displacement
of approximately 1.4 cm. There is an isolated fracture of the lesser trochanter, with approximately 8 mm medial displacement. The femoral head remains situated within the acetabulum.
#� Sepsis, urinary source, resistant organism
IV fluids completed
Follow cultures NGTD
ID eval appreciated meropenem switched to fosfomycin given tremors possibly associated to meropenem, 3 days abx treatment completed as per ID
Urology Eval Appreciated
#Hypoxia possibly due to sepsis as above vs iatrogenic fluid overload improved with restart diuresis
weaned off oxygen supplementation saturating well on room air
#Lactic acidosis persists possibly d/t poor clearance Liver dysfunction/cirrhosis
received multiple IVF bolus
since resolved
CT (limited by motion) noted
-Minimal amount of left pleural fluid. Parenchymal opacity within the visualized lower lungs, most likely atelectasis (incentive spirometry ordered)
-calcified gallstones, No gross evidence to suggest cholecystitis
-Cirrhotic liver.
-Atrophic adrenal glands bilaterally
-Enlarged right renal pelvis and proximal to mid right ureter, with normal caliber distal right ureter, no convincing evidence for right ureteral calculus (as per urology's review of imaging, enlargement likely d/t Rt UPJ obstruction cogenital
abnormality no intervention required)
-Mild dilation of the common iliac arteries bilaterally. Tortuosity of the abdominal aorta with no evidence for abdominal aortic aneurysm.
-Moderate distention of the rectum with stool, transverse measures 6.5 cm. No convincing evidence for stercoral colitis. (once suppository 11/14 administered with subsequent moderate bowel movement noted)
-Moderate amount of subcutaneous edema. Not mentioned above, there is also a small moderate amount of presacral edema.
-Mild superior endplate depression of the T10, T11, T12, and L4 vertebral bodies. Age is uncertain, although these findings appear new since of bowel radiograph of July 10, 2012. Please correlate with any acute symptoms.
-Previous vertebroplasty involving L1, L2, and L3.
-Top normal lymph nodes in the portacaval region. There is an enlarged interaortocaval lymph node. These are nonspecific, and could be inflammatory or neoplastic. Statistically, these are probably more likely to be reactive inflammatory lymph nodes.
#� Adrenal insufficiency - chronic issue
Stress dose IV steroids tapered back to home prednisone regimen 5 mg daily
#� Low Na, may be from decreased po and adrenal issues
Improved/resolved with IV steroids IVF NS
Cont to monitor
IVF since completed, steroid taper as above
#hypokalemia
#hypophosphatemia
monitor and replete as necessary
#� SANTOSH resolved
Cr improved likely baseline 1.0-1.1
IVF completed
monitor kidney function
#blurry vision both eyes, left eye injection, possible conjunctivitis resolved
-Maxitrol eye drop treatment completed
-monitor response
-ophthalmology eval appreciated no acute abn's outpatient follow up recommended
#Tremor ext's new onset unclear etiology
-Neuro eval appreciated likely physiologic tremor, CT head appreciated no acute abn's, checking for other potential metabolic causes
#� Essential HTN - antihypertensives held for low normotensive pressures
cont bisoprolol losartan holding parameters
continuing hold hydralazine for now
Amlodipine placed on hold d/t persistent lower ext edema possible adverse effect, swelling since improved
#� Anemia - chronic, likely from chronic disease
H&H stable
#� Heart failure - chronic diastolic
#Acute on Chronic HFpEF 11/19
home bisoprolol resumed
Acute Hypoxic respiratory Insufficiency/failure
[correction to prior documentation] bumex was restarted as IV 11/19
weight since improved, weaned of oxygen supplementation
bumex transitioned back to PO 11/21 home dose 1 mg daily increased to BID for better control Heart Failure fluid overload
COVID neg
flud restriction started
Bumex increased to BID, cont
Mucinex added
Repeat CXR 11/30 noted no pneumonia, cardiomegaly unchanged
Impacted fracture left proximal humerus appreciated, known to patient and family who report fracture initial occurrence years ago, no new recent acute changes in left shoulder or new trauma as per patient/family
Left dedicate shoulder XR noted subacute
Orthopedic eval appreciated potential benefit outpatient follow up, no need for acute surgical intervention or change in weightbearing status left shoulder/upper ext at this time.
Persistent Cough
COVID Flu Neg
cont scheduled mucinex
prn Tessalon
improving
#� Chronic wounds - change dressings as needed
# upper ext poor wound healing
-limit lab draws as possible
-Vitamin C supplementation
-Multivitamin
#� Cirrhosis - continue xifaxan lactulose
limited abd US appreciated no ascites
# Paroxysmal afib - continue Eliquis.� No signs of bleeding
#Hypothyroidism
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
-cont thyroid supplementation
#Otherwise complex PMH with GERD, constipation, depression
Continue usual home meds
Full code
Eliquis for DVTp
gi ppx Protonix
Medically stable for discharge SNF with outpatient follow up recommendations.
Discussed with Patient and her daughter Ethel
Total Time Preparing Discharge ___50____ minutes including examination of the patient, summary of the hospital stay, instructions for continuing care to all relevant caregivers; and preparation of discharge records, prescriptions, and referral
forms if necessary.
Anticipated Discharge: Today
Subjective/Interval History
-
Date of Service: December 03, 2023
Seen and examined at bedside in no acute distress sitting up comfortably in bed. Continues to report cough but was able to cough up sputum this morning, unable to do so past few days. Otherwise patient reports overall feeling well.
Objective Data
-
Labs:
Laboratory Results
12/03/23
07:18
WBC Pending
Hgb Pending
Hct Pending
Plt Count Pending
Sodium Pending
Potassium Pending
Chloride Pending
Carbon Dioxide Pending
BUN Pending
Creatinine Pending
Glucose Pending
Calcium Pending
Vital Signs:
Vital Signs
Temp Pulse Resp BP Pulse Ox
97.9 F 87 20 98/58 92
12/02/23 23:30 12/02/23 23:30 12/02/23 23:30 12/02/23 23:30 12/02/23 23:30
I&O
12/02/23 12/03/23 12/04/23
06:59 06:59 07:59
Intake Total 1620 / 1620 1440 / 1440
Balance 1620 / 1620 1440 / 1440
[2023-12-03 08:30] LABS: Hematocrit 35.9 % (37.0-47.0); Hemoglobin 11.6 g/dL (12.0-16.0); Mean Corp Hgb Conc. 32.3 g/dL (33.0-37.0); Mean Platelet Volume 10.9 fL (7.4-10.4); Platelet Count 112 10^3/uL (130-400); Red Blood Cell Count 3.74 10^6/uL (4.20-5.40); White Blood Cell Count 5.7 10^3/uL (4.8-10.8)
[2023-12-03] MEDS: XIFAXAN 550 MG PO (08:38)
[2023-12-03] MEDS: BUMEX 1 MG PO (08:38)
[2023-12-03] MEDS: PROZAC 20 MG PO (08:39)
[2023-12-03] MEDS: PROTONIX 40 MG PO (08:39)
[2023-12-03] MEDS: ELIQUIS 5 MG PO (08:39)
[2023-12-03] MEDS: ZEBETA 5 MG PO (08:39)
[2023-12-03] MEDS: VITAMIN C 250 MG PO (08:39)
[2023-12-03] MEDS: CYTOMEL 5 MICROGRAM PO (08:39)
[2023-12-03] MEDS: TYLENOL 1000 MG PO (08:39)
[2023-12-03] MEDS: MUCINEX 1200 MG PO (08:40)
[2023-12-03] MEDS: COZAAR 100 MG PO (08:40)
[2023-12-03] MEDS: THERAGRAN 1 TABLET PO (08:40)
[2023-12-03] MEDS: DUPHALAC/CHRONULAC PO (08:40)
[2023-12-03] MEDS: DELTASONE 5 MG PO (08:40)
[2023-12-03] MEDS: KCL 20 MEQ PO (08:41)
[2023-12-03] MEDS: DESENEX/MITRAZOL/ZEASORB 1 APPLIC TOPICAL (08:41)
[2023-12-03] MEDS: LIDOCAINE 4% PATCH TOPICAL (08:42)
[2023-12-03 09:03] LABS: Blood Urea Nitrogen 18 mg/dl (7-17); Calcium 7.9 mg/dl (8.4-10.2); Carbon Dioxide 31 mmol/L (22-30); Chloride 102 mmol/L (98-107); Estimated Creatinine Clearance 58 ml/min; Glucose 68 mg/dl (70-99); Magnesium 1.7 mg/dl (1.6-2.3); Phosphorus 3.9 mg/dl (2.5-4.5); Potassium 3.3 mmol/L (3.5-5.1); Sodium 136 mmol/L (135-145); eGFR > 60.00
[2023-12-03] MEDS: KLOR-CON 20 MEQ PO (10:45)
--- NOTE | 2023-12-03 13:04 | CM ---
CM following re: discharge planning.
Reviewed pt's chart, met with pt and pt';s daughter Khushbu at bedside.
According to MD pt is medically stable to be discharged today. Both pt and her daughter are aware, expressed their agreement with discharge. IMM reviewed, placed in chart, pt has a copy.
Pt's daughter stated she toured [facility] and she is OK with pt going to [facility] for a short term rehab.
An auth has been obtained from [employer] from 12/02/23 till 12/08/23, NRD is 12/07/23, reviewer Eva Randhawa; [email or web address]. auth number is: [id number].
Auth info provided to [facility] liaison [facility] and he confirmed that pt is accepted for admission to [facility] today.
will arrange transportation BLS with [facility] ambulance. [facility] with
[facility] nursing report:[phone]
Discharge instructions fax: [phone].
D/C plan: [facility].
--- NOTE | 2023-12-03 13:28 | W.DCSUMMARY ---
Discharge Summary
Discharge Data
Date of Admission: 11/12/23
Date of Discharge: 12/03/23
-
Pending Results: No
Hospital Course
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 for rehab p/w declining mental status over past few days, diagnosed
with a UTI and started on antibiotic Levaquin.� Her blood pressure was lower than normal prompting hold on her blood pressure medications.� She has had a fever on and off for the last few days and had been refusing lactulose. Denied any specific
complaints, but not a reliable historian given change of mental status.� Per conversation with ER attending, her urine culture from 2 days ago grew an organism resistant to Levaquin and sensitive to meropenem.� She reportedly received meropenem in
the past without problems (she has PCN allergy) though later daughter clarified that patient had received ertapenem, not meropenem. Sepsis, urinary source, resistant organism, IV fluids completed, Follow up cultures NGTD. ID eval and meropenem was
later switched to fosfomycin given tremors possibly associated to meropenem (tremors since resolved). 3 days abx treatment completed as per ID. Recent left lower extremity fracture. Patient had a femoral fracture on 10/06 and had surgery on 10/[address] Maria De Jesus Verduzco orthopedic at [facility].� Outpatient Orthopedic recommendation appreciated 25% weightbearing as tolerated LLE. X-ray of the femur noted long intramedullary adrianne extending through the left femur. The patient is status
post gamma nail fixation of a proximal femoral fracture. There is a greater trochanteric fracture component which is displaced laterally approximately 2.3 cm; the gamma nail appears to extend through this greater trochanteric component. Along the
medial margin of the proximal femur, distal to the lesser trochanter, there is a slightly angulated and medially displaced fracture component with displacement of approximately 1.4 cm. There is an isolated fracture of the lesser trochanter, with
approximately 8 mm medial displacement. The femoral head remains situated within the acetabulum. Hypoxia possibly due to sepsis as above vs iatrogenic fluid overload improved with restart diuresis, weaned off oxygen supplementation saturating well
on room air. Lactic acidosis persisted possibly d/t poor clearance Liver dysfunction/cirrhosis, received multiple IVF bolus, eventually resolved.
CT (limited by motion) noted
-Minimal amount of left pleural fluid. Parenchymal opacity within the visualized lower lungs, most likely atelectasis (incentive spirometry ordered)
-calcified gallstones, No gross evidence to suggest cholecystitis
-Cirrhotic liver.
-Atrophic adrenal glands bilaterally
-Enlarged right renal pelvis and proximal to mid right ureter, with normal caliber distal right ureter, no convincing evidence for right ureteral calculus (as per urology's review of imaging, enlargement likely d/t Rt UPJ obstruction cogenital
abnormality no intervention required)
-Mild dilation of the common iliac arteries bilaterally. Tortuosity of the abdominal aorta with no evidence for abdominal aortic aneurysm.
-Moderate distention of the rectum with stool, transverse measures 6.5 cm. No convincing evidence for stercoral colitis.� (once suppository 11/14 administered with subsequent moderate bowel movement noted)
-Moderate amount of subcutaneous edema. Not mentioned above, there is also a small moderate amount of presacral edema.
-Mild superior endplate depression of the T10, T11, T12, and L4 vertebral bodies. Age is uncertain, although these findings appear new since of bowel radiograph of July 10, 2012. Please correlate with any acute symptoms.
-Previous vertebroplasty involving L1, L2, and L3.
-Top normal lymph nodes in the portacaval region. There is an enlarged interaortocaval lymph node. These are nonspecific, and could be inflammatory or neoplastic. Statistically, these are probably more likely to be reactive inflammatory lymph nodes.
Adrenal insufficiency, Stress dose IV steroids were tapered back to home prednisone regimen 5 mg daily. Patient also presented with low Na, possibly from decreased PO intake and adrenal issues. Improved/resolved with IV steroids IVF NS. SANTOSH also
resolved, Cr improved to likely baseline 1.0-1.1. Blurry vision both eyes, left eye injection, possible conjunctivitis resolved with Maxitrol eye drop treatment, completed. Ophthalmology eval appreciated no acute abn's, outpatient follow up
recommended. Blood pressure medications were gradually resumed but hydralazine remained on hold d/t low pressures and Amlodipine was discontinued due to side effect lower ext swelling that resolved following discontinuation. Patient was also
briefly treated for acute on chronic HFpEF, transitioned back to home oral bumex on completion of treatment. Repeat CXR 11/30 noted no pneumonia, cardiomegaly unchanged and Impacted fracture left proximal humerus, known to patient and family who
reported fracture initial occurrence years ago, no new recent acute changes in left shoulder or new trauma as per patient/family. Left dedicated shoulder XR noted subacute, Orthopedic eval appreciated potential benefit outpatient follow up, no need
for acute surgical intervention or change in weightbearing status left shoulder/upper ext at this time. Persistent Cough, COVID Flu Neg, patient improved with scheduled mucinex and prn Tessalon. Medically stabilized, patient was discharged to SNF
rehab with outpatient follow up recommendations.
Discharge Plan
-
Patient Disposition: Shelter/SNF
Discharge Diagnosis/Procedures: Toxic Metabolic Encephalopathy
Severe Sepsis Urinary Tract Infection
Obesity
Recent Left Femur Fracture Fixation
Paroxysmal atrial fibrillation
Heart Failure with Preserved Ejection Fraction
Hypertension Hyperlipidemia
MAZARIEGOS Cirrhosis
Hypopituitarism following history pituitary mass resection
Hypothyroidism
Adrenal Insufficiency
Conjunctivitis Resolved
Tremors possible meropenem side effect since resolved
Condition: Fair
Diet: Regular
Activity: With assistance and With Walker
Additional Activity: 25 percent weight bearing left lower extremity
Driving Restrictions: Not until seen by your Dr
Bathing Restrictions: None
Blood Work: Please repeat CBC and CMP with primary care provider in 1 week.
Other Services: PT and OT
Specialty Instructions: Weigh Daily- Call MD for wt gain/loss 3 lbs overnight/5 lbs in 1 week
Activity Restrictions/Additional Instructions:
Wound Care Instructions Open areas under abdominal skin folds- Apply zinc ointment daily and as needed.
Please follow up with your primary care provider and orthopedic in 1 week of discharge. Follow up with ophthalmology in 2-4 weeks of discharge.
Referrals:
Manuel Cunnnigham MD [Active] - in two to four weeks
Christopher Nogueira MD [Family Provider] - in one week
Additional Discharge Medication Instructions: No further antibiotics required at this time. Prior to admission Levofloxacin discontinued
Prior to admission prednisone taper discontinued, resume home prednisone 5 mg daily
Hydralazine discontinued due to hypotension.
Amlodipine discontinued due to lower extremity swelling, adverse effect.
Prescriptions:
New
multivitamin with folic acid [Tab-A-Saul] 400 mcg Tablet
1 tab PO DAILY 30 Days Qty: 30 0RF
prednisone 5 mg Tablet
5 mg PO DAILY 30 Days Qty: 30 0RF
guaifenesin 600 mg Tablet Extended Release 12hr
1,200 mg PO Q12 7 Days Qty: 28 0RF
benzonatate 100 mg Capsule
200 mg PO TIDPRN PRN (Reason: cough) 7 Days Qty: 21 0RF
Continued
liothyronine 5 MCG tablet
5 mcg PO DAILY
levothyroxine 100 MCG tablet
100 mcg PO DAILY
Xifaxan 550 MG tablet
550 mg PO BID
Eliquis 5 MG tablet
5 mg PO BID
ondansetron HCl 4 MG tablet
4 mg PO Q8HPRN PRN (Reason: nausea)
cyanocobalamin (vitamin B-12) 1,000 mcg Tablet
1,000 mcg PO Q48H@0800
acetaminophen [Tylenol Extra Strength] 500 mg Tablet
1,000 mg PO BID
magnesium hydroxide [Milk of Magnesia] 400 mg/5 mL Suspension
30 ml PO DAILY PRN (Reason: if no BM on day 4 of no BM)
bisacodyl [Dulcolax (bisacodyl)] 10 mg Suppository
10 mg DE DAILY PRN (Reason: constipation)
pantoprazole 40 mg Tablet,Delayed Release (Dr/Ec)
40 mg PO DAILY
Fleet Enema 19-7 gram/118 mL Enema
118 ml DE DAILYPRN PRN (Reason: constipation)
bumetanide 1 mg Tablet
1 mg PO DAILY
losartan 100 mg Tablet
100 mg PO DAILY
fluoxetine 20 mg Capsule
20 mg PO DAILY
calcium carbonate 1,000 mg Tablet
1,000 mg PO TID
simethicone 80 mg Tablet,Chewable
160 mg PO QIDPRN PRN (Reason: flatulence)
cholecalciferol (vitamin D3) 125 mcg (5,000 unit) Tablet
125 mcg PO DAILY
Cepacol Sore Throat (anjali-men) 15-3.6 mg Lozenge
1 ruth MUCOUS MEMBRANE Q2H PRN (Reason: sore throat)
lactulose 20 gram/30 mL Solution
20 g PO BID
naloxone [Narcan] 4 mg/actuation [place],Non-Aerosol
4 mg INTRANASAL Q3M PRN (Reason: opioid suspected overdose)
bisoprolol fumarate 5 MG tablet
5 mg PO DAILY
Triad Wound Dressing Paste
1 applic TOPICAL BID
Discontinued
prednisone 10 mg Tablet
10 mg PO .TAPER
Rx Instructions:
11/12/2023,
10 mg daily x 5 days (11/11/2023 - 11/15/2023)
7.5 mg daily x 5 days (11/16/2023 - 11/20/2023)
5 mg daily (11/21/2023 - no stop date) according to NH.
hydralazine 25 mg Tablet
25 mg PO QID
amlodipine 10 mg Tablet
10 mg PO DAILY
levofloxacin 750 mg Tablet
750 mg PO DAILY
Rx Instructions:
11/12/2023, start date: 11/11/2023 x 5 days.
end date: 11/16/2023.
Discharge Orders:
Discharge Patient (As Directed); Ordered 12/03/23
Ordered By: Velvet Alvarenga
Discharge Date and Time
Discharge Date/Time: 12/03/23 17:02
[2023-12-03 15:05] VITALS: BP 125/62
== END 2023-12-03 17:02 | DRG 871 ==
LOC: 2 NORTH 20:03
PROVIDERS: Hospitalist; Nurse Practitioner Family; ADMITTING PHYSICIAN Internal Medicine; ATTENDING PHYSICIAN Internal Medicine; CONSULT PHYSICIAN Orthopaedic Surgery; CONSULT PHYSICIAN Psychiatry & Neurology Neurology; CONSULT PHYSICIAN Specialist; CONSULT PHYSICIAN Student in an Organized Health Care Education/Training Program; EMERGENCY PHYSICIAN Emergency Medicine; FAMILY PHYSICIAN Family Medicine; OTHER PHYSICIAN Internal Medicine Critical Care Medicine
DX: A41.9 Sepsis, unspecified organism (principal); G92.8 Other toxic encephalopathy; I50.33 Acute on chronic diastolic (congestive) heart failure; N39.0 Urinary tract infection, site not specified; E23.0 Hypopituitarism; E27.40 Unspecified adrenocortical insufficiency; Z16.23 Resistance to quinolones and fluoroquinolones; N17.9 Acute kidney failure, unspecified; E87.20 Acidosis, unspecified; E87.1 Hypo-osmolality and hyponatremia; Z16.12 Extended spectrum beta lactamase (ESBL) resistance; J98.11 Atelectasis; R65.20 Severe sepsis without septic shock; I48.0 Paroxysmal atrial fibrillation; I11.0 Hypertensive heart disease with heart failure; K74.60 Unspecified cirrhosis of liver; K75.81 Nonalcoholic steatohepatitis (NASH); E03.9 Hypothyroidism, unspecified; H10.9 Unspecified conjunctivitis; G25.1 Drug-induced tremor; T36.1X5A Adverse effect of cephalosporins and other beta-lactam antibiotics, initial encounter; R09.02 Hypoxemia; E87.6 Hypokalemia; E83.39 Other disorders of phosphorus metabolism; S72.002D Fracture of unspecified part of neck of left femur, subsequent encounter for closed fracture with routine healing; Z75.1 Person awaiting admission to adequate facility elsewhere; D63.8 Anemia in other chronic diseases classified elsewhere; K59.00 Constipation, unspecified; M25.512 Pain in left shoulder; F32.A Depression, unspecified; E78.00 Pure hypercholesterolemia, unspecified; K21.9 Gastro-esophageal reflux disease without esophagitis; D69.59 Other secondary thrombocytopenia; E87.8 Other disorders of electrolyte and fluid balance, not elsewhere classified; E88.09 Other disorders of plasma-protein metabolism, not elsewhere classified; B96.1 Klebsiella pneumoniae [K. pneumoniae] as the cause of diseases classified elsewhere; W19.XXXD Unspecified fall, subsequent encounter; E66.9 Obesity, unspecified; K72.90 Hepatic failure, unspecified without coma; Z11.52 Encounter for screening for COVID-19; Z87.442 Personal history of urinary calculi; Z88.0 Allergy status to penicillin; Z86.73 Personal history of transient ischemic attack (TIA), and cerebral infarction without residual deficits; Z87.440 Personal history of urinary (tract) infections; Z79.01 Long term (current) use of anticoagulants; Z79.52 Long term (current) use of systemic steroids; Z68.36 Body mass index [BMI] 36.0-36.9, adult
CPT/HCPCS: 51701; 70450; 71046; 73030; 73552; 74176; 76705; 80048; 80053; 81003; 81015; 82140; 82607; 82728; 82746; 82962; 83605; 83735; 84100; 84145; 84439; 84443; 84484; 85025; 85027; 85610; 85730; 87040; 87086; 87502; 87811; 92526; 92610; 93005; 96361; 96374; 96375; 97110; 97163; 97167; 97530; 97535; 99291; J2185

== ENCOUNTER 2023-12-14 14:46 | Inpatient (IN) | payer OTHER, SELFPAY ==
[2023-12-14] VITALS (21 sets, daily range): BP systolic 76–138; BP diastolic 35–115; BMI 35.1
[2023-12-14 08:25] LABS: % Basophils 0.4 % (0-2); % Eosinophils 0.7 % (0-6); % Immature Granulocytes 0.7 % (0-0.5); % Lymphocytes 6.6 % (20.5-51.1); % Monocytes 2.9 % (1.7-9.3); % Neutrophils 88.7 % (42.2-75.2); Absolute Basophils 0.1 10^3/uL (0-0.2); Absolute Eosinophils 0.1 10^3/uL (0-0.7); Absolute Immature Granulocytes 0.1 10^3/uL (0-0.05); Absolute Lymphocytes 1.1 10^3/uL (1.2-3.4); Absolute Monocytes 0.5 10^3/uL (0.1-0.6); Absolute Neutrophils 14.7 10^3/uL (1.4-6.5); Hemoglobin 14.3 g/dL (12.0-16.0); Mean Corp Hgb Conc. 32.5 g/dL (33.0-37.0); Mean Corpuscular Volume 95.2 fL (81.0-99.0); Mean Platelet Volume 10.4 fL (7.4-10.4); Nucleated Red Blood Cells % 0 %; Platelet Count 208 10^3/uL (130-400); Red Blood Cell Count 4.62 10^6/uL (4.20-5.40); Red Cell Dist. Width 15.1 % (11.5-14.5); White Blood Cell Count 16.6 10^3/uL (4.8-10.8)
[2023-12-14 08:37] LABS: ALT (SGPT) 24 U/L (0-35); AST (SGOT) 54 U/L (14-36); Alkaline Phosphatase 199 U/L (38-126); Blood Urea Nitrogen 23 mg/dl (7-17); Calcium 8.6 mg/dl (8.4-10.2); Carbon Dioxide 29 mmol/L (22-30); Chloride 104 mmol/L (98-107); Glucose 108 mg/dl (70-99); Lipase 113 U/L (23-300); Potassium 3.3 mmol/L (3.5-5.1); Sodium 139 mmol/L (135-145); Total Bilirubin 1.5 mg/dl (0.2-1.3); Total Protein 6.5 g/dl (6.3-8.2); eGFR > 60.00
--- NOTE | 2023-12-14 08:44 | ED.GENMED ---
History of Present Illness
General
Chief Complaint: Abdominal Symptoms
Source: patient and family
Exam Limitations: none
Time Seen by Provider: 12/14/23 08:04
Travel History
Have you had any contact with someone who has COVID-19?: No
Do you have any symptoms of coronavirus? Fever > 100 degrees, chills, cough, shortness of breath, sore throat, loss of taste or smell, muscle aches, or headache?: No
History of Present Illness
History of Present Illness:
Relatively sudden onset nausea vomiting nonlocalizing abdominal pain at 4 AM. Also some diarrhea. No blood or mucus in the diarrhea. No fever. No chest pain or shortness of breath. Symptoms are moderate in nature.
Past History
Past History
ED Past Medical History: Arrthythmia (Atrial fibrillation), CHF, HTN, Hypercholesterolemia and Other (Pituitary cyst, Adrenal insufficiency, UTIs)
ED Past Surgical History: , Orthopedic and Tonsilectomy
Social History
Tobacco: Non-smoker
Alcohol: None
Drug: None
Personal:
Family History
Family History: Other (reviewed and non-contributory)
Review of Systems
Review of Systems
All Other Systems: Not applicable
Constitutional: Denies fever
Respiratory: Reports no symptoms
Cardiac: Reports no symptoms
Phy Exam
Physical Exam
Physical Exam:
GENERAL: Alert and oriented in no apparent distress
EYE: Orbits normal.
NECK: Supple, no thyroid palpable
ENT: Pharynx without erythema
CARDIAC: Irregular irregular. Tachycardic
LUNGS: Clear breath sounds,normal
ABDOMEN: Soft, bowel sounds present. Nonlocalizing tenderness some in the left lower quadrant suprapubic and epigastric however nonlocalizing. No rebound or guarding no mass or hernia
NEUROLOGICAL: Alert and oriented , grossly non-focal
SKIN: Warm and dry, no rash or lesion, no discoloration, skin intact.
MUSCULOSKELETAL: No edema,no deformity.Good color
PSYCH: Normal and appropriate interaction.
Course
Orders/Labs/Results
Orders:
Orders
12/14/23 08:15
CMP [Comprehensive Metabolic Panel] Urgent
Complete Blood Count/With Diff Urgent
Lipase Urgent
Magnesium Urgent
Comment: ADD ON
12/14/23 08:16
Blood Culture Q30M
NIKKI Source: Blood/Venous
Specimen Description:
12/14/23 08:39
Electrocardiogram (*1) Stat
Reason for Study: Abdominal Pain
Cardiac Monitoring- Treatment ONCE
EKG- Treatment ONCE
IV Insert/Care/Rem.- Treatment PRN
0.9% Sodium Chloride 500 ml [Nss] 500 ml IV BOLUS
Iohexol [Omnipaque] See Protocol PO NOW STA
Pulse Ox/cont/shift [RESP] Stat
Quantity: 1
12/14/23 08:48
CT Abd/Pel (IV only)-DH only Urgent
Comment:
Reason For Exam: Diffuse nonlocalizing abdominal pain
Ondansetron Injectable [Zofran] 4 mg IV NOW STA
12/14/23 08:58
Norovirus by PCR Urgent
NIKKI Source: ST
Specimen Description:
Date Specimen was Collected: 12/14/23
Time Specimen was Collected: 08:45
STOOL [C difficile Antigen & Toxins] Urgent
NIKKI Source: Feces/Stool
Specimen Description:
Date Specimen was Collected: 12/14/23
Time Specimen was Collected: 08:45
Stool Culture Urgent
NIKKI Source: Feces/Stool
Specimen Description:
Date Specimen was Collected: 12/14/23
Time Specimen was Collected: 08:45
12/14/23 09:13
Hydrocortisone Sod Succinate [Solu-Cortef] 100 mg IV NOW STA
12/14/23 10:07
Add On- LAB Urgent
Tests Added?: noro virus
12/14/23 10:11
Diltiazem HCl [Cardizem] 10 mg IV NOW STA
12/14/23 10:14
Ondansetron Injectable [Zofran] 4 mg IV NOW STA
12/14/23 10:20
Lactic Acid Q4H
Comment: CANCEL 2nd LACTIC ACID IF 1st LACTIC ACID IS LESS THAN 2
Blood Culture Q30M
NIKKI Source: Blood/Venous
Specimen Description:
12/14/23 10:55
0.9% Sodium Chloride 1000 ml [Nss] 2,000 ml IV NOW STA
12/14/23 10:56
Straight cath- Treatment ONCE
12/14/23 12:43
Urinalysis Reflex To Culture Urgent
Date Specimen was Collected: 12/14/23
Time Specimen was Collected: 12:30
Urine Microscopic Reflex Cult Urgent
12/14/23 12:59
Add On- LAB Routine
Tests Added?: magnesium
Potassium Chloride [KCl] 40 meq 0.9% Sodium Chloride 250 ml [Nss] 250 ml IV NOW
12/14/23 13:19
Apixaban [Eliquis] 5 mg PO NOW STA
Rifaximin [Xifaxan] 550 mg PO NOW STA
12/14/23 13:20
Admit/Transfer Patient As Directed
Co-Sign Provider:
Level of Care: Inpatient admission
Assign to:: IMU- Intermediate Care
Physician / Group: Therese Potter
Diagnosis: norovirus; severe sepsis
Reason for Hospitalization: norovirus; severe sepsis
Expected length of stay greater than two midnights?: Yes
ELOS- Estimated Length of Stay in days: 3
I certify the patient meets the requirements for IP care: Yes
12/14/23 13:22
Code Status As Directed
Resuscitation Status: Full Code
12/14/23 13:29
EKG [Electrocardiogram (*1)] Routine
Reason for Study: QTc Monitoring
12/14/23 13:48
Lactic Acid Q4H
Comment: CANCEL 2nd LACTIC ACID IF 1st LACTIC ACID IS LESS THAN 2
Abnormal Lab Results
12/14/23 12/14/23 12/14/23
08:15 10:20 12:43
WBC 16.6 H 10^3/uL
(4.8-10.8)
MCHC 32.5 L g/dL
(33.0-37.0)
RDW 15.1 H %
(11.5-14.5)
Abs Immat Gran (auto) 0.1 H 10^3/uL
(0-0.05)
Absolute Neuts (auto) 14.7 H 10^3/uL
(1.4-6.5)
Absolute Lymphs (auto) 1.1 L 10^3/uL
(1.2-3.4)
Immature Gran % 0.7 H %
(0-0.5)
Neutrophils % 88.7 H %
(42.2-75.2)
Lymphocytes % 6.6 L %
(20.5-51.1)
Potassium 3.3 L mmol/L
(3.5-5.1)
BUN 23 H mg/dl
(7-17)
Glucose 108 H mg/dl
(70-99)
Lactic Acid 5.7 H* mmol/L
(0.7-2.0)
Total Bilirubin 1.5 H mg/dl
(0.2-1.3)
AST 54 H U/L
(14-36)
Alkaline Phosphatase 199 H U/L
(38-126)
Albumin 3.0 L g/dl
(3.5-5.0)
Leukocyte Esterase Rfl Trace A
(Negative)
12/14/23
13:48
WBC
MCHC
RDW
Abs Immat Gran (auto)
Absolute Neuts (auto)
Absolute Lymphs (auto)
Immature Gran %
Neutrophils %
Lymphocytes %
Potassium
BUN
Glucose
Lactic Acid 4.2 H* mmol/L
(0.7-2.0)
Total Bilirubin
AST
Alkaline Phosphatase
Albumin
Leukocyte Esterase Rfl
12/14/23 08:15
12/14/23 08:15
Vital Signs
Initial and Last Documented VS:
Initial Vital Signs
Pulse BP Pulse Ox
139 109/75 92
12/14/23 08:05 12/14/23 08:05 12/14/23 08:05
Last Documented Vital Signs
Temp Pulse Resp BP Pulse Ox
98.2 F 115 21 96/52 95
12/14/23 08:30 12/14/23 13:15 12/14/23 13:15 12/14/23 13:00 12/14/23 11:00
*EKG
Interpreted by ED Provider?: Yes
Interpretation: abnormal
Comparison EKG: changes noted
Heart Rate: 146
Rate: tachycardiac
[place]: normal axis
Interval: normal interval
QRS Pattern: normal QRS
Ischemia: non-specific ST changes
*Label Operator Interpretation
Rate: tachycardiac
Interpretation: abnormal
Heart Rate: 144
Rhythm: a-fib
*Critical Care Note
Total Time (30-74mins, 75-104mins- exclusive of procedures): 45
Data Reviewed
Review of Other/Old Records Reveals: Labs, Records and Discharge Summary
Update Note
Update Note:
0945.... Multiple rechecks. Patient remains in a atrial fibrillation RVR. Blood pressure 106. Receiving fluids. Contemplating small dose of rate control. Jorje to cardiovert emergently unless her blood pressure remained very low. Cardiology
consulted.
1100... Discussed with hospitalist. Patient's lactic acid is elevated. Blood pressure 95. Atrial fibrillation still tacky but much better. Only received 5 mg of Cardizem. Will give sepsis dose fluids. Awaiting urinalysis although symptoms are
clearly an enteritis clinically. Will hold on antibiotics at this time. Discussed with hospitalist.
ED Attending Note
-
Portions of this chart may have been created with voice recognition software.� Occasional wrong word or��sound alike� substitutions may have occurred due to the inherent limitations of voice recognition software.
Discharge Plan
Departure
Patient Disposition: Admit
Date of Disposition: 12/14/23
Time of Disposition: 10:13
Presentation/result/management discussed w/ accepting MD/DO: Cardiology
Discharge Problem:
Enteritis, Atrial fibrillation/RVR, Adrenal insufficiency, Lactic acidosis
Prescriptions:
No Action
liothyronine 5 MCG tablet
5 mcg PO DAILY
levothyroxine 100 MCG tablet
100 mcg PO DAILY@0600
Xifaxan 550 MG tablet
550 mg PO BID
Eliquis 5 MG tablet
5 mg PO BID
ondansetron HCl 4 MG tablet
4 mg PO Q8HPRN PRN (Reason: nausea)
cyanocobalamin (vitamin B-12) 1,000 mcg Tablet
1,000 mcg PO DAILY
magnesium hydroxide [Milk of Magnesia] 400 mg/5 mL Suspension
30 ml PO DAILY PRN (Reason: if no BM on day 4)
bisacodyl [Dulcolax (bisacodyl)] 10 mg Suppository
10 mg NH [id number] PRN (Reason: constipation)
pantoprazole 40 mg Tablet,Delayed Release (Dr/Ec)
40 mg PO DAILY
bumetanide 1 mg Tablet
1 mg PO DAILY
losartan 100 mg Tablet
100 mg PO DAILY
simethicone 80 mg Tablet,Chewable
160 mg PO QID
cholecalciferol (vitamin D3) 125 mcg (5,000 unit) Tablet
125 mcg PO DAILY
Cepacol Sore Throat (anjali-men) 15-3.6 mg Lozenge
1 ruth MUCOUS MEMBRANE Q2H PRN (Reason: sore throat)
lactulose 20 gram/30 mL Solution
20 g PO BID
bisoprolol fumarate 5 MG tablet
5 mg PO DAILY
prednisone 5 mg Tablet
5 mg PO DAILY 30 Days Qty: 30 0RF
Rx Instructions:
12/14/2023, start date: 12/04/2023; end date: 01/03/2024.
multivitamin Tablet
1 tab PO DAILY
acetaminophen [Tylenol] 325 mg Tablet
650 mg PO Q6H PRN (Reason: mild pain)
acetaminophen [Tylenol] 325 mg Tablet
650 mg PO BID
folic acid 400 mcg Tablet
0.4 mg PO DAILY
Rx Instructions:
12/14/2023, start date: 12/07/2023; end date: 01/06/2024.
calcium carbonate [Calcium 500] 500 mg calcium (1,250 mg) Tablet
1,000 mg PO TID
fluoxetine 20 mg Tablet
20 mg PO DAILY
Fleet Enema 19-7 gram/118 mL Enema
118 ml NH DAILYPRN PRN (Reason: constipation)
Referrals:
Robert Bender I., DO [Family Provider] -
Interventions
Interventions:
*Risk Screen - Suicide Last Done: 12/14/23 08:05
*General Assessment Last Done: 12/14/23 08:05
*Neglect/Abuse Screening Last Done: 12/14/23 08:05
ED- Fall Risk Assessment Last Done: 12/14/23 11:33
*ED COVID-19 Vaccine History Last Done: 12/14/23 08:05
ZF-Safvoz-Dvubazovgt Assessment Last Done: 12/14/23 08:05
[2023-12-14] MEDS: NSS 500 IV (08:52)
[2023-12-14] MEDS: ZOFRAN 4 MG IV ×2 (08:53→10:26)
[2023-12-14] MEDS: SOLU-CORTEF 100 MG IV (09:56)
[2023-12-14] MEDS: CARDIZEM 10 MG IV (10:28)
[2023-12-14 10:51] LABS: Lactic Acid 5.7 mmol/L (0.7-2.0)
[2023-12-14] MEDS: NSS 2000 ML IV (11:21)
--- NOTE | 2023-12-14 12:51 | HPS.HSE ---
Family Physician
-
Family Physician: Robert Bender
Chief Complaint
-
nausea/vomiting/diarrhea
History of Present Illness
Ms. Emily Miller is a 78 yo woman with hx paroxysmal atrial fibrillation, essential hypertension, hyperlipidemia, adrenal insufficiency, hypothyroidism, MAZARIEGOS cirrhosis, recent femoral fracture on 10/06 s/p surgery 10/[address] ([address] Dr[address] Maria De Jesus Verduzco
orthopedic at [facility]), recent DH prolonged hospital course 11/12-12/03/23 for confusion, UTI, adrenal insufficiency, and SANTOSH, who presents to the ER with nausea/vomiting and diarrhea. She was also found to be in afib with RVR.
Currently patient states she feels a little better. She had stomach cramps two days ago and decreased appetite then pain, nausea and vomiting earlier today + diarrhea. No fevers/chills. No chest pain or shortness of breath. No LE swelling.
Patient has been unable to ambulate since hip fracture, she has been at rehab.
Medical History
Past Medical History
Past Medical History: Reports Other
Additional Past Medical History:
Atrial fibrillation, paroxysmal
CHF, last known ef in 2020 was 50%, likely chronic diastolic failure
essential HTN,
Hypercholesterolemia
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
,
Orthopedic surgery
Tonsilectomy
liver cirrhosis (MAZARIEGOS)
Past Surgical History: Reports Other
Additional Past Surgical History:
See above
Social History
Unable to obtain full social history at this time due to: Acuity
Tobacco: Non-smoker
Alcohol: None
Drug: None
Family History
Family History: Not pertinent
Allergies / Home Medications
Allergies reflects when Allergies were last updated in [facility].
Home Medications with original date entered in [facility]
Allergy/Medication List:
Allergies
Allergy/AdvReac Type Severity Reaction Status Date / Time
meropenem Allergy Intermediate tremors Unverified 11/21/23 08:36
Penicillins Allergy Hives Verified 10/17/19 16:15
amlodipine AdvReac Intermediate Swelling Verified 12/01/23 12:19
Home Medications
apixaban 5 mg tablet (Eliquis) 5 mg PO BID Blood clot prevention/tx 10/17/19
levothyroxine 100 mcg tablet 100 mcg PO DAILY@0600 Thyroid 10/17/19
liothyronine 5 mcg tablet 5 mcg PO DAILY Thyroid 10/17/19
ondansetron HCl 4 mg tablet 4 mg PO Q8HPRN PRN nausea 10/17/19
rifaximin 550 mg tablet (Xifaxan) 550 mg PO BID Liver Issues 10/17/19
benzocaine 15 mg-menthol 3.6 mg lozenges (Cepacol Sore Throat (benzocaine-menthol)) 1 ruth mucous membrane Q2H PRN sore throat 11/12/23
bisacodyl 10 mg rectal suppository (Dulcolax (bisacodyl)) 10 mg NM [id number] PRN constipation 11/12/23
bisoprolol fumarate 5 mg tablet 5 mg PO DAILY Heart disease 11/12/23
bumetanide 1 mg tablet 1 mg PO DAILY Fluid Retention/Swelling 11/12/23
cholecalciferol (vitamin D3) 125 mcg (5,000 unit) tablet 125 mcg PO DAILY Supplement 11/12/23
cyanocobalamin (vitamin B-12) 1,000 mcg tablet 1,000 mcg PO DAILY Supplement 11/12/23
lactulose 20 gram/30 mL oral solution 20 g PO BID Liver Issues 11/12/23
losartan 100 mg tablet 100 mg PO DAILY Blood Pressure 11/12/23
magnesium hydroxide 400 mg/5 mL oral suspension (Milk of Magnesia) 30 ml PO DAILY PRN if no BM on day 4 11/12/23
pantoprazole 40 mg tablet,delayed release 40 mg PO DAILY Gastrointestinal Issue 11/12/23
simethicone 80 mg chewable tablet 160 mg PO QID 11/12/23
prednisone 5 mg tablet 5 mg PO DAILY 30 days #30 tabs 11/21/23
acetaminophen 325 mg tablet (Tylenol) 650 mg PO BID 12/14/23
acetaminophen 325 mg tablet (Tylenol) 650 mg PO Q6H PRN mild pain 12/14/23
calcium carbonate 500 mg calcium (1,250 mg) tablet 1,000 mg PO TID 12/14/23
fluoxetine 20 mg tablet 20 mg PO DAILY 12/14/23
folic acid 400 mcg tablet 0.4 mg PO DAILY 12/14/23
multivitamin 1 tab PO DAILY 12/14/23
sodium phosphates 19 gram-7 gram/118 mL enema (Fleet Enema) 118 ml NM DAILYPRN PRN constipation 12/14/23
Review of Systems
-
History Source: Patient
A 12 point ROS was completed and negative except as noted: Yes
Physical Exam
Vital Signs
Vital Signs
Temp Pulse Resp BP Pulse Ox
98.2 F 104 25 95/51 95
12/14/23 08:30 12/14/23 12:30 12/14/23 12:30 12/14/23 12:30 12/14/23 11:00
Physical Exam
General: Well Developed, Well Nourished, No Apparent Distress, Comfortable and Obese
HEENT: [place] Conjunctivae, Nose Appears Normal and Ears Appear Normal
Respiratory: Clear and Decreased Breath Sounds
Cardiac: S1/S2, Regular Rhythm and Other (faint heart sounds)
GI: Soft, Non Tender and Non Distended
Musculoskeletal: No Clubbing, No Cyanosis and No Edema
Skin: Warm, Dry and Rash (several breaks in her skin on UE and LE)
Neuro: Awake
Psych: Calm and Confused
Laboratory Results
-
12/14/23 08:15
12/14/23 08:15
Laboratory Results
Lactic Acid 5.7 mmol/L (0.7-2.0) H* 12/14/23 10:20
Total Bilirubin 1.5 mg/dl (0.2-1.3) H 12/14/23 08:15
AST 54 U/L (14-36) H 12/14/23 08:15
ALT 24 U/L (0-35) 12/14/23 08:15
Alkaline Phosphatase 199 U/L (38-126) H 12/14/23 08:15
Lipase 113 U/L (23-300) 12/14/23 08:15
Data Reviewed
-
Diagnostic Radiology: Report Reviewed by me
Lab Data: Labs Reviewed by me
Impression/Plan
-
Ms. Emily Miller is a 78 yo woman with hx paroxysmal atrial fibrillation, essential hypertension, hyperlipidemia, adrenal insufficiency, hypothyroidism, MAZARIEGOS cirrhosis, recent femoral fracture on 10/06 s/p surgery 10/[address] ([address] Maria De Jesus Verduzco
orthopedic at [facility]), recent DH prolonged hospital course 11/12-12/03/23 for confusion, UTI, adrenal insufficiency, and SANTOSH, who presents to the ER with nausea/vomiting and diarrhea. She was also found to be in afib with RVR.
Triage VS: P 139, BP 109/75, SpO2 92%
LABS: WBC 16.6, Hg 14.3, PLT 208, Na 139, K+ 3.3, Cr 0.9, Glucose 108, T. Bili 1.5, AST 54, Alk Phos 199, Albumin 3.0, liapse 113
lactate 5.7
Stool studies + for Norovirus
MAR: zofran, fluids, hydrocortisone
CT A/P
IMPRESSION:
Markedly limited evaluation of intestinal tract without oral contrast. Nondilated small bowel with at least some relative enhancement of some small bowel wall. No large or small bowel obstruction although fluid-filled large bowel noted, borderline
right-sided colonic dilatation. Overall findings could represent enteritis. No free air.
Distal colonic diverticulosis.
Top normal lymph nodes again seen in the portacaval region as well as predominantly stable enlarged aortocaval lymph node.
Cholelithiasis. No findings to suggest biliary tract dilatation.
Small simple left renal cyst.
Possible hepatic cirrhotic contour.
No findings to suggest obstructive uropathy bilaterally.
Norovirus
Nausea/Vomiting/Diarrhea
-s/p fluids in ER, continue
-repeat EKG for QTc monitoring prior to continuing zofran
-supportive care
Severe sepsis 2/2 above
-patient with elevated WBC, pulse, elevated lactate
-trend lactate and continue bolus PRN
-BP responsive to fluids
-admit to IMU given low BP and elevated lactate
Atrial Fibrillation with Rapid Ventricular Rate
Paroxysmal Atrial Fibrillation
-HR better now post fluids
-Resume Bisoprolol tomorrow with hold parameters, hold today for low BP
-DIRECTOR OF TEACHER EDUCATION Eliquis
History of Adrenal Insufficiency
Hypotension
-received 100mg hydrocortisone in ER - continue stress dose steroids 50mg q 8
-eventual resumption [employer] prednisone 50mg PO QD
Essential Hypertension
-hold [employer]OR OF [employer] Bisoprolol, Losartan
Hypothyroidism
-DIRECTOR OF TEACHER EDUCATION Synthroid
Hyperlipidemia
-DIRECTOR OF TEACHER EDUCATION Statin
MAZARIEGOS Cirrhosis
-DIRECTOR OF TEACHER EDUCATION Rifaximin
-hold DIRECTOR OF TEACHER [employer]UC[employer] lactulose
DVT PPx Eliquis
FULL CODE
[2023-12-14 13:03] LABS: Urine Albumin Trace (Neg - Trace); Urine Bilirubin Negative (Negative); Urine Character Clear (Clear); Urine Color Yellow; Urine Glucose Negative (Negative); Urine Ketone Negative (Negative); Urine Leukocyte Trace (Negative); Urine Nitrite Negative (Negative); Urine Occult Blood Negative (Negative); Urine Specific Gravity 1.015 (<1.030); Urine Urobilinogen Negative (Neg - 1+)
[2023-12-14 13:31] LABS: Urine Squamous Cell 0-2 /LPF (Few)
[2023-12-14 13:34] LABS: Urine Red Blood Cell None Seen /HPF (0-2)
[2023-12-14] MEDS: KCL 270 MEQ IV (13:35)
--- NOTE | 2023-12-14 13:39 | CON.CAR ---
Addendum entered and electronically signed by Cabrera Dalal MD 12/14/23 17:03:
I saw and examined the patient.
The LEAD SUSTAINABILITY SPECIALIST or PA's note was reviewed and I agree with the note.
Comment: General: Well developed, well nourished in NAD.
Neck: Supple, no JVD, HJR, carotids +2 B/L, no bruits bilaterally.
Heart: Non displaced PMI, irregular, no murmurs, No S3, S4, no rubs.
Lungs: Clear to auscultation bilaterally, no wheeze, rhonchi, rubs bilaterally,
normal expiratory phase.
Extremities: No clubbing, cyanosis or edema bilaterally.
Neuro: Grossly nonfocal, awake, alert and oriented x3.
Emily has a history of paroxysmal atrial elation on chronic Eliquis, chronic adrenal insufficiency on chronic steroids, hypertension, hypothyroidism, sleep apnea with variable compliance with CPAP, statin intolerance. She was sent from [facility]
usp facility to [place] with nausea vomiting and is being admitted for sepsis and norovirus. Cardiology is consulted for atrial fibrillation. She was in sinus rhythm here at [place] in October 2023.
Suspect A-fib may be due to underlying sepsis. She is already anticoagulated and rate control is reasonable. Bisoprolol has been ordered. Continue Eliquis. Bumex 1 mg on hold due to hypotension and sepsis and will need to be resumed at some
point. Get records from [place] cardiology
Original Note:
Consultation
Consultation Request
Date/Time Consultation Requested: 12/14/23
Date/Time Consultation Performed: 12/14/23
Requesting Provider: Dr. Potter
Performing Provider: Dr. Dalal
Reason for Consultation: Afib with RVR
Medical History
-
History of Present Illness:
Patient was sent from [facility] to with N/V/D and is being admitted with sepsis, Noroviurs and Afib with RVR so cardiology has been consulted. Patient had a leg fracture that was treated at [facility] 09/2023. [facility]
and then admitted to 10/2023 with UTI. Patient was seen by cardiology during a previous admission to in 2019, but otherwise sees her primary internal audit senior manager Dr. Al Lewis at [facility]. Patient has a h/o pAfib and is chronically on Eliquis. During her
recent admission to for UTI last month she was in SR by ECG and tele strips. Patient was hypotensive on arrival to [facility] and Afib was rapid. Patient was given IVFs and Cardizem 10 mg IV x1 with improvement. Patient takes Eliquis 5 mg BID and
bisoprolol 5 mg daily as an outpatient.
PMH:
Paroxysmal Afib
Chronic Eliquis OAC
history of pituitary cyst s/p removal 2013
Chronic adrenal insufficiency on chronic steroids
HTN
Hypothyroidism
Obstructive sleep apnea, variable compliance with CPAP
history of statin intolerance
Past Medical History
Past Medical History: Other (in HPI)
Past Surgical History: (x3), Orthopedic, Tonsilectomy and Other (cyst in brain resected)
Social History
Tobacco: Non-Smoker
Alcohol: None
Drug: None
Personal:
Living: [facility] ([facility])
Family History
Family History: CAD and Diabetes
Allergies / Home Medications
Allergy/AdvReac Type Severity Reaction Status Date / Time
meropenem Allergy Intermediate tremors Unverified 11/21/23 08:36
Penicillins Allergy Hives Verified 10/17/19 16:15
amlodipine AdvReac Intermediate Swelling Verified 12/01/23 12:19
Medication Instructions Recorded Confirmed Type
apixaban 5 mg tablet (Eliquis) 5 mg PO BID Blood clot 10/17/19 12/14/23 History
prevention/tx
levothyroxine 100 mcg tablet 100 mcg PO DAILY@0600 Thyroid 10/17/19 12/14/23 History
liothyronine 5 mcg tablet 5 mcg PO DAILY Thyroid 10/17/19 12/14/23 History
ondansetron HCl 4 mg tablet 4 mg PO Q8HPRN PRN nausea 10/17/19 12/14/23 History
rifaximin 550 mg tablet (Xifaxan) 550 mg PO BID Liver Issues 10/17/19 12/14/23 History
benzocaine 15 mg-menthol 3.6 mg 1 ruth mucous membrane Q2H PRN sore 11/12/23 12/14/23 History
lozenges (Cepacol Sore Throat throat
(benzocaine-menthol))
bisacodyl 10 mg rectal suppository 10 mg MA [id number] PRN constipation 11/12/23 12/14/23 History
(Dulcolax (bisacodyl))
bisoprolol fumarate 5 mg tablet 5 mg PO DAILY Heart disease 11/12/23 12/14/23 History
bumetanide 1 mg tablet 1 mg PO DAILY Fluid 11/12/23 12/14/23 History
Retention/Swelling
cholecalciferol (vitamin D3) 125 125 mcg PO DAILY Supplement 11/12/23 12/14/23 History
mcg (5,000 unit) tablet
cyanocobalamin (vitamin B-12) 1,000 mcg PO DAILY Supplement 11/12/23 12/14/23 History
1,000 mcg tablet
lactulose 20 gram/30 mL oral 20 g PO BID Liver Issues 11/12/23 12/14/23 History
solution
losartan 100 mg tablet 100 mg PO DAILY Blood Pressure 11/12/23 12/14/23 History
magnesium hydroxide 400 mg/5 mL 30 ml PO DAILY PRN if no BM on day 11/12/23 12/14/23 History
oral suspension (Milk of Magnesia) 4
pantoprazole 40 mg tablet,delayed 40 mg PO DAILY Gastrointestinal 11/12/23 12/14/23 History
release Issue
simethicone 80 mg chewable tablet 160 mg PO QID 11/12/23 12/14/23 History
prednisone 5 mg tablet 5 mg PO DAILY 30 days #30 tabs 11/21/23 12/14/23 Rx
acetaminophen 325 mg tablet 650 mg PO BID 12/14/23 12/14/23 History
(Tylenol)
acetaminophen 325 mg tablet 650 mg PO Q6H PRN mild pain 12/14/23 12/14/23 History
(Tylenol)
calcium carbonate 500 mg calcium 1,000 mg PO TID 12/14/23 12/14/23 History
(1,250 mg) tablet
fluoxetine 20 mg tablet 20 mg PO DAILY 12/14/23 12/14/23 History
folic acid 400 mcg tablet 0.4 mg PO DAILY 12/14/23 12/14/23 History
multivitamin 1 tab PO DAILY 12/14/23 12/14/23 History
sodium phosphates 19 gram-7 118 ml MA DAILYPRN PRN constipation 12/14/23 12/14/23 History
gram/118 mL enema (Fleet Enema)
Review of Systems
-
History Source: Transfer Record
All other systems: Negative unless noted
Physical Exam
Vital Signs
Temp Pulse Resp BP Pulse Ox
98.2 F 115 21 96/52 95
12/14/23 08:30 12/14/23 13:15 12/14/23 13:15 12/14/23 13:00 12/14/23 11:00
GEN: NAD. Somnolent
HEENT: Dry MM
LUNGS: No audible wheeze
CV: Irreg irreg, Afib on tele
ABD: soft, BS+
EXT: No edema B/L LE
NEURO: Gross non-focal
SKIN: No rash
Lab Results
12/14/23 08:15
12/14/23 08:15
Impression / Plan
-
Primary internal audit senior manager: Dr. Al Lewis [phone]
Assessment:
Nausea, vomiting, diarrhea and suspected Norovirus
Sepsis
Hypokalemia
Afib with RVR and known pAfib
Paroxysmal Afib
Chronic Eliquis OAC
history of pituitary cyst s/p removal 2013
Chronic adrenal insufficiency on chronic steroids
HTN
Hypothyroidism
Obstructive sleep apnea, variable compliance with CPAP
history of statin intolerance
ECHO 10/18/19: Definity study, EF 50-55%, trace MR, no TR: pending
Plan:
-Patient was sent from [facility] to with N/V/D and is being admitted with sepsis, Noroviurs and Afib with RVR so cardiology has been consulted. Patient had a leg fracture that was treated at [facility] 09/2023. [facility] and then admitted to 10/2023 with UTI. Patient was seen by cardiology during a previous admission to in 2019, but otherwise sees her primary internal audit senior manager Dr. Al Lewis at [facility]. Patient has a h/o pAfib and is chronically on Eliquis.
During her recent admission to for UTI last month she was in SR by ECG and tele strips. Patient was hypotensive on arrival to [facility] and Afib was rapid. Patient was given IVFs and Cardizem 10 mg IV x1 with improvement. Patient takes Eliquis 5 mg
BID and bisoprolol 5 mg daily as an outpatient.
-Afib with RVR in a patient with known paroxysmal Afib. Likely exacerbated by Norovirus and sepsis.
-ECG reviewed by me shows Afib with RVR. Also reviewed ECGs from admission last month into this month that shows SR.
-HRs have already improved with fluid resuscitation and Cardizem 10 mg IV x1 in the ER. Outpatient dose of bisoprolol 5 mg daily has been ordered pending ability to take POs.
-If HRs increase then would start low dose Cardizem gtt as tolerate with BP
-Agree with continuing Eliquis 5 mg BID and patient was able to take her dose in the ER this AM. There is no h/o thromboembolic event.
-Outpatient dose of Bumex 1 mg daily is on hold due to sepsis and hypotension. Follow daily weights.
-EF preserved by echo at in 2020. Will call Dr. Lewis's office in AM for additional/current records.
-She should use her CPAP for h/o EDELMIRA.
[2023-12-14 13:42] LABS: Magnesium 1.7 mg/dl (1.6-2.3)
[2023-12-14 14:12] LABS: Lactic Acid 4.2 mmol/L (0.7-2.0)
--- NOTE | 2023-12-14 16:08 | PTCARENOTE ---
Received patient from ED on stretcher. Potassium rider infusing via right ac. Patient alert and oriented. Afib on monitor hr 140-150's. 99.4 oral temp, bp on arrival 111/79,22, 99% on 2l. Patient INC of stool on arrival. Dr. Potter notified
regarding HR. [place] patient to room.
[2023-12-14] MEDS: ELIQUIS 5 MG PO (16:35)
[2023-12-14] MEDS: XIFAXAN 550 MG PO ×2 (16:36→20:00)
[2023-12-14] MEDS: PROZAC 20 MG PO (16:36)
[2023-12-14] MEDS: FOLVITE 0.400000000000000022 MG PO (16:36)
[2023-12-14] MEDS: LR 1000 IV (16:36)
[2023-12-14] MEDS: SOLU-CORTEF 50 MG IV ×2 (16:37→23:16)
[2023-12-14] MEDS: ZEBETA 5 MG PO (16:40)
[2023-12-14] MEDS: LR 500 IV (17:13)
[2023-12-14 19:03] LABS: Lactic Acid 4.5 mmol/L (0.7-2.0)
[2023-12-14] MEDS: CARDIZEM 125 IV (19:59)
[2023-12-14] MEDS: NSS 1000 IV (20:00)
--- NOTE | 2023-12-14 20:30 | PTCARENOTE ---
Received pt from khai RN. Pt in Afib HR 130s-150s BP 103/72, CHECK SCALER Willy notified, Cardizem gtt ordered and started at 10 mg (see worklist). Pt is AAOx3, drowsy, SALAMATOF, forgetful. 2L NC O2 sat 97%, lungs diminished. Pt incont x2, poor appetite, abd
obese. NS infusing @ 80 ml/hr. Pt is laying comfortable in bed with call mccall in reach.
--- NOTE | 2023-12-14 21:16 | W.PN.UPDATE ---
Update Note
Progress Note Update
Patient is a-fib with hr 120s-150s, bp 107/90. Denied chest pain or SOB. Cardizem gtt started at rate of 10mg/hr as recommended by sales merchandiser and will be titrated as needed.
[2023-12-14 23:47] LABS: Lactic Acid 4.3 mmol/L (0.7-2.0)
[2023-12-15] VITALS (15 sets, daily range): BP systolic 112–145; BP diastolic 65–119; PULSE 103; O2SAT 94; BMI 35.4
[2023-12-15] MEDS: SYNTHROID 100 MCG PO (03:38)
[2023-12-15 03:48] LABS: % Basophils 0.1 % (0-2); % Eosinophils 0.1 % (0-6); % Immature Granulocytes 0.6 % (0-0.5); % Lymphocytes 5.6 % (20.5-51.1); % Monocytes 2.5 % (1.7-9.3); % Neutrophils 91.1 % (42.2-75.2); Absolute Immature Granulocytes 0.1 10^3/uL (0-0.05); Absolute Lymphocytes 0.6 10^3/uL (1.2-3.4); Absolute Monocytes 0.2 10^3/uL (0.1-0.6); Absolute Neutrophils 8.9 10^3/uL (1.4-6.5); Hematocrit 35.9 % (37.0-47.0); Hemoglobin 11.6 g/dL (12.0-16.0); Mean Corp Hgb Conc. 32.3 g/dL (33.0-37.0); Mean Corpuscular Hgb 30.1 pg (27.0-31.0); Mean Corpuscular Volume 93.2 fL (81.0-99.0); Nucleated Red Blood Cells % 0 %; Platelet Count 138 10^3/uL (130-400); Red Blood Cell Count 3.85 10^6/uL (4.20-5.40); White Blood Cell Count 9.7 10^3/uL (4.8-10.8)
[2023-12-15 03:59] LABS: Lactic Acid 2.7 mmol/L (0.7-2.0)
[2023-12-15] MEDS: SOLU-CORTEF 50 MG IV (07:40)
[2023-12-15] MEDS: XIFAXAN 550 MG PO ×2 (07:41→21:27)
[2023-12-15] MEDS: CYTOMEL 5 MICROGRAM PO (07:41)
[2023-12-15] MEDS: ELIQUIS 5 MG PO ×2 (07:42→21:28)
[2023-12-15] MEDS: FOLVITE 0.400000000000000022 MG PO (07:43)
[2023-12-15] MEDS: PROTONIX 40 MG PO (07:43)
[2023-12-15] MEDS: VITAMIN D3 (cholecalciferol) 125 MCG PO (07:43)
[2023-12-15] MEDS: PROZAC 20 MG PO (07:43)
[2023-12-15] MEDS: NSS 1000 IV (07:46)
[2023-12-15] MEDS: ZEBETA 5 MG PO (07:47)
--- NOTE | 2023-12-15 08:09 | W.PN.HOSP.TC ---
Today's Communication/Plan
-
likely turn off dilt gtt one hour after Bisoprolol given (will discuss HR then with RN)
stop running IVF
F/U lactate - if remains elevated would repeat tomorrow as would not private branch exchange operator. patient is fluid resuscitated and with liver disease can take longer to clear
advance to LRD
PT/OT
Assessment / Plan
Assessment / Plan
Ms. Emily Miller is a 78 yo woman with hx paroxysmal atrial fibrillation, essential hypertension, hyperlipidemia, adrenal insufficiency, hypothyroidism, MAZARIEGOS cirrhosis, recent femoral fracture on 10/06 s/p surgery 10/07 (by Dr. Maria De Jesus Verduzco
orthopedic at [facility]), recent DH prolonged hospital course 11/12-12/03/23 for confusion, UTI, adrenal insufficiency, and SANTOSH, who presents to the ER with nausea/vomiting and diarrhea.� She was also found to be in afib with RVR.�
Triage VS:� P 139, BP 109/75, SpO2 92%
LABS: WBC 16.6, Hg 14.3, PLT 208, Na 139, K+ 3.3, Cr 0.9, Glucose 108, T. Bili 1.5, AST 54, Alk Phos 199, Albumin 3.0, liapse 113
lactate 5.7
Stool studies + for Norovirus
MAR: zofran, fluids, hydrocortisone
CT A/P
IMPRESSION:
Markedly limited evaluation of intestinal tract without oral contrast. Nondilated small bowel with at least some�relative enhancement of some small bowel wall.�No large or small bowel obstruction although fluid-filled large bowel noted, borderline
right-sided colonic dilatation. Overall findings could represent enteritis. No free air.
Distal colonic diverticulosis.
Top normal lymph nodes again seen in the portacaval region as well as predominantly stable enlarged aortocaval lymph node.
Cholelithiasis. No findings to suggest biliary tract dilatation.
Small simple left renal cyst.
Possible hepatic cirrhotic contour.
No findings to suggest obstructive uropathy bilaterally.
Norovirus
Nausea/Vomiting/Diarrhea
Severe sepsis 2/2 above
-s/p fluids in ER and overnight. Her BP and HR are better this morning. She reports feeling swollen and is on Bumex at home --> stop running fluids
-lactate taking a while to clear likely 2/2 liver disease
-advance to LRD
-PT/OT - patient was able to transfer previously
Atrial Fibrillation with Rapid Ventricular Rate
Paroxysmal Atrial Fibrillation
-required dilt gtt overnight for afib with RVR to 140's
-this AM HR low 100's pre-Bisoprolol. Likely turn off dilt gtt one hours after giving beta-vinicius
-continue FUNERAL LOCATION MANAGER Eliquis
-appreciate cardiology consult
History of Adrenal Insufficiency
Hypotension
-received 100mg hydrocortisone in ER - continue stress dose steroids 50mg q 8 --> decrease to 25 today
-eventual resumption FUNERAL LOCATION MANAGER prednisone 50mg PO QD
Essential Hypertension
-resume FUNERAL LOCATION MANAGER Bisoprolol
-hold FUNERAL LOCATION MANAGER Losartan
Hypothyroidism
-FUNERAL LOCATION MANAGER Synthroid
Hyperlipidemia
-FUNERAL LOCATION MANAGER Statin
MAZARIEGOS Cirrhosis
-FUNERAL LOCATION MANAGER Rifaximin
-hold FUNERAL LOCATION MANAGER lactulose
DVT PPx Eliquis
FULL CODE
Anticipated Discharge: 24 - 48 hours
Subjective/Interval History
-
Date of Service: December 15, 2023
feeling better today
less nauseated
wants to try solid food
Objective Data
-
Labs:
Laboratory Results
12/15/23 12/15/23
03:33 04:37
WBC 9.7
Hgb 11.6 L
Hct 35.9 L
Plt Count 138 D
Sodium Cancelled Pending
Potassium Cancelled Pending
Chloride Cancelled Pending
Carbon Dioxide Cancelled Pending
BUN Cancelled Pending
Creatinine Cancelled Pending
Glucose Cancelled Pending
Calcium Cancelled Pending
Total Bilirubin Cancelled Pending
AST Cancelled Pending
ALT Cancelled Pending
Alkaline Phosphatase Cancelled Pending
Vital Signs:
Vital Signs
Temp Pulse Resp BP Pulse Ox
97.2 F 110 19 112/87 95
12/15/23 03:52 12/15/23 07:47 12/15/23 06:00 12/15/23 07:47 12/15/23 06:00
I&O
12/14/23 12/15/23 12/16/23
06:59 06:59 06:59
Intake Total 2995 / 2995
Balance 2995 / 2995
Review of Systems
-
History Source: Patient
All other systems: Reviewed and negative
Physical Exam
-
General: No Apparent Distress, Appears Chronically Ill and Obese
HEENT: PERRLA
Respiratory: Clear to Auscultation; Negative Wheezes
Cardiac: Irregular Rhythm
GI: Soft and Nontender
Musculoskeletal: No Edema
Skin: Warm and Dry; Negative Rash
Neuro: AO x 3
Psych: Calm
Data Reviewed
-
Diagnostic Radiology: Report Reviewed by me
Labs: Labs Reviewed by me
[2023-12-15 08:38] LABS: Lactic Acid 2.2 mmol/L (0.7-2.0)
[2023-12-15 08:44] LABS: ALT (SGPT) 22 U/L (0-35); AST (SGOT) 47 U/L (14-36); Albumin 2.3 g/dl (3.5-5.0); Alkaline Phosphatase 121 U/L (38-126); Blood Urea Nitrogen 26 mg/dl (7-17); Calcium 7.9 mg/dl (8.4-10.2); Carbon Dioxide 22 mmol/L (22-30); Chloride 110 mmol/L (98-107); Estimated Creatinine Clearance 55 ml/min; Glucose 103 mg/dl (70-99); Magnesium 1.5 mg/dl (1.6-2.3); Potassium 4.4 mmol/L (3.5-5.1); Sodium 136 mmol/L (135-145); Total Bilirubin 1.2 mg/dl (0.2-1.3); Total Protein 5.3 g/dl (6.3-8.2); eGFR > 60.00
--- NOTE | 2023-12-15 09:15 | PTCARENOTE ---
Patient received from take off worker. Patient resting comfortably in bed. AAO, VSS. No events noted over night. No complaints of pain at this time. Currently on 1L N/C, will attempt to wean off. Cardizem gtt @ mg/hr, per Hospitalist, give AM
medications and wean to off. NSS was discontinued, patient with adequate PO intake. Call mccall in reach.
--- NOTE | 2023-12-15 09:27 | W.PN.CARDCBS ---
Addendum entered and electronically signed by Micky Cheema MD 12/15/23 10:26:
I saw and examined the patient.
The Injection Molding Machine Setter's note was reviewed and I agree with the note.
Comment:
GEN: No distress, awake, Ox3
HEENT: supple, anicteric, mmm
LUNGS: CTA, no wheezes/rales
CV: irreg, S1/S2, 1/6 syst LSB, no gallop
ABD: soft, BS+, NT/ND
EXT: No edema
NEURO: Gross non-focal
SKIN: No rash
Plan:
Remains in rate controlled A-fib. Will stop Cardizem drip today and resume bisoprolol at 7.5 mg daily. Continue Eliquis.
Her weight is increased. Would decrease IV fluids and likely will need to restart Bumex over the next 24 hours.
Will check records regarding last echocardiogram and EF.
GI symptoms seem improving.
Original Note:
Today's Communication / Plan
-
Increase bisoprolol to 7.5 mg daily and then stop Cardizem gtt today
Cont Eliquis
Getting records from Dr. Caballero's office although patient says she does not have a h/o HF she is on Bumex, losartan and bisoprolol
Impression / Plan
-
PCP Dr. Sultana while at [facility]
Primary multimedia project manager: Dr. Bill Caballero
Assessment:
Nausea, vomiting, diarrhea and suspected Norovirus 12/14/23
Sepsis
Hypokalemia
Afib with RVR and known pAfib
Paroxysmal Afib
Chronic Eliquis OAC
history of pituitary cyst s/p removal 2013
Chronic adrenal insufficiency on chronic steroids
HTN
Hypothyroidism
Obstructive sleep apnea, variable compliance with CPAP
history of statin intolerance
ECHO 1/23/20: Definity study, EF 50-55%, trace MR, no TR: pending
Plan:
-Patient symptomatically improved and now eating and drinking without N/V/D on 12/15/23
-Remains in Afib on tele as reviewed by me on 12/15/23 and was started on Cardizem gtt at 10 mg/hr 12/14/23 PM due to increased HRs. Patient with known paroxysmal Afib and was taking bisoprolol 5 mg daily prior to admission, will increase to 7.5 mg
daily for HR control. Will wean Cardizem gtt 12/15/23
-Patient more awake and alert on 12/15/23 and says that she now follows with Dr. Caballero, but denies a h/o heart failure. Called for records and talked with Osmel and she is going to send records 12/15/23, 6 minutes on the phone with [facility].
-Outpatient dose of Eliquis 5 mg BID (age 78, wt 87 kg and Cre 0.9) has been continued. There is no h/o thromboembolic event
-Patient has received 4.5 L IVFs as of 12/15/23 AM. Outpatient dose of Bumex 1 mg daily is on hold due to sepsis and hypotension. Follow daily weights.
-EF was preserved in 2019, but patient now follows with an advanced HF specialist although she says she does not have HF. Await records.
HPI: Patient was sent from [facility] to with N/V/D and is being admitted with sepsis, Noroviurs and Afib with RVR so cardiology has been consulted. Patient had a leg fracture that was treated at [facility] 09/2023. Patient was sent to [facility] for
rehab and then admitted to 10/2023 with UTI. Patient was seen by cardiology during a previous admission to in 2019, but otherwise sees her primary multimedia project manager Dr. Al Lewis at [facility]. Patient has a h/o pAfib and is chronically on Eliquis.
During her recent admission to for UTI last month she was in SR by ECG and tele strips. Patient was hypotensive on arrival to [facility] and Afib was rapid. Patient was given IVFs and Cardizem 10 mg IV x1 with improvement. Patient takes Eliquis 5 mg
BID and bisoprolol 5 mg daily as an outpatient.
Progress Note - Strike Planning Applications
Subjective
Date of Service: December 15, 2023
She feels much better, no longer nauseous
Objective
Labs:
12/15/23 03:33
12/15/23 08:12
Labs
Hgb 11.6 g/dL (12.0-16.0) L 12/15/23 03:33
Hct 35.9 % (37.0-47.0) L 12/15/23 03:33
Plt Count 138 10^3/uL (130-400) D 12/15/23 03:33
Sodium 136 mmol/L (135-145) 12/15/23 08:12
Potassium 4.4 mmol/L (3.5-5.1) D 12/15/23 08:12
BUN 26 mg/dl (7-17) H 12/15/23 08:12
Creatinine 0.9 mg/dL (0.6-1.0) 12/15/23 08:12
Glucose 103 mg/dl (70-99) H 12/15/23 08:12
Vital Signs and I&O:
Vital Signs
Temp Pulse Resp BP Pulse Ox
98.2 F 110 19 112/87 95
12/15/23 07:30 12/15/23 07:47 12/15/23 06:00 12/15/23 07:47 12/15/23 06:00
Vital Signs
Temp Pulse Resp BP Pulse Ox
98.2 F 110 19 112/87 95
12/15/23 07:30 12/15/23 07:47 12/15/23 06:00 12/15/23 07:47 12/15/23 06:00
Intake & Output
12/13/23 12/14/23 12/15/23 12/16/23
06:59 06:59 06:59 06:59
Intake Total 2995 / 2995
Balance 2995 / 2995
Physical Exam
Physical Exam
GEN: NAD. NAD. AAO x3
HEENT: MMM
LUNGS: No audible wheeze
CV: Irreg irreg, Afib on tele
ABD: soft, BS+
EXT: No edema B/L LE
NEURO: Gross non-focal
SKIN: No rash
[2023-12-15] MEDS: ZEBETA 2.5 MG PO (10:20)
--- NOTE | 2023-12-15 11:09 | CM ---
Addendum entered by Trini Brown RN 12/15/23 13:36:
CM Consult: Advanced Directive
Met with patient and provided Advanced Directive with explanations. Patient stated she is unsure if she wants to fill it out-informed her that it is her option to complete it or not. Suggested she discuss with her daughter.
Original Note:
Patient from [facility] with Dx Norovirus, Rapid A fib, PAF. O2 1L. Receiving Cardizem gtt, IV Solucortef. PT & OT Evals pending.
Received phone call from patient's daughter Ethel;
the patient was at [facility] then returned to then went to [facility] for short term rehab. The daughter called to convey that the care at [facility] was very poor and she does not want her mother to return there.
Per Ethel; prior to the recent admissions, the patient resided with her in a split level home and had been independent in ADLs and ambulation with her walker until recently. Patient is [facility].
DME - RW, SPC, transport chair
VN - [facility]
Prior SNF - [facility], [facility], [facility]
[place] - prior [facility] acute rehab
PCP - Ludwig Mirza at [facility]
Pharmacy - [facility]
Discussed SNF preferences and provided [facility] ratings; daughter chooses [facility], [facility].
Plan follow up after PT/OT Evals and make SNF referrals.
--- NOTE | 2023-12-15 14:19 | W.PN.UPDATE ---
Update Note
Progress Note Update
Records received and reviewed from Dr. Caballero's office.
-Patient last seen by Dr. Caballero 05/31/23.
-Paroxysmal Afib firest evaluated at [facility] in 2019
-She was previously ordered a PYP scan, but did not complete because she was afraid of the result. Echo described as NOT having the appearance of infiltrative cardiomyopathy, but ECG low voltage. Ultimately patient not able to complete test and no
further work-up planned.
-Echo 10/2021: EF 65%, normal RV size and function
-Lexiscan nuclear stress test 2021: small mild zied defect mid anterior wall that is fixed, defect did not meet quantitative criteria, normal global LV function
-CHF-NYHA class 3, ACC stage C
[2023-12-15] MEDS: SOLU-CORTEF 25 MG IV (16:21)
[2023-12-16] VITALS (11 sets, daily range): BP systolic 111–152; BP diastolic 82–112; PULSE 115; O2SAT 95; BMI 35.7
[2023-12-16] MEDS: SOLU-CORTEF 25 MG IV ×3 (01:09→16:46)
[2023-12-16 04:22] LABS: Hematocrit 35.7 % (37.0-47.0); Hemoglobin 11.4 g/dL (12.0-16.0); Mean Corp Hgb Conc. 31.9 g/dL (33.0-37.0); Mean Corpuscular Hgb 30.6 pg (27.0-31.0); Mean Corpuscular Volume 95.7 fL (81.0-99.0); Mean Platelet Volume 11.1 fL (7.4-10.4); Platelet Count 146 10^3/uL (130-400); Red Blood Cell Count 3.73 10^6/uL (4.20-5.40); Red Cell Dist. Width 15.1 % (11.5-14.5); White Blood Cell Count 8.1 10^3/uL (4.8-10.8)
[2023-12-16 04:45] LABS: Blood Urea Nitrogen 27 mg/dl (7-17); Calcium 8.4 mg/dl (8.4-10.2); Carbon Dioxide 23 mmol/L (22-30); Chloride 109 mmol/L (98-107); Estimated Creatinine Clearance 55 ml/min; Glucose 113 mg/dl (70-99); Magnesium 1.8 mg/dl (1.6-2.3); Potassium 4.3 mmol/L (3.5-5.1); Sodium 135 mmol/L (135-145); eGFR > 60.00
[2023-12-16] MEDS: SYNTHROID 100 MCG PO (06:54)
[2023-12-16] MEDS: CYTOMEL 5 MICROGRAM PO (06:54)
--- NOTE | 2023-12-16 08:01 | W.PN.HOSP.TC ---
Today's Communication/Plan
-
see bold
possible DC to SNF tomorrow
Assessment / Plan
Assessment / Plan
Ms. Emily Miller is a 78 yo woman with hx paroxysmal atrial fibrillation, essential hypertension, hyperlipidemia, adrenal insufficiency, hypothyroidism, MAZARIEGOS cirrhosis, recent femoral fracture on 10/06 s/p surgery 10/07 (by Dr. Maria De Jesus Verduzco
orthopedic at [facility]), recent DH prolonged hospital course 11/12-12/03/23 for confusion, UTI, adrenal insufficiency, and SANTOSH, who presents to the ER with nausea/vomiting and diarrhea.� She was also found to be in afib with RVR.�
CT A/P
IMPRESSION:
Markedly limited evaluation of intestinal tract without oral contrast. Nondilated small bowel with at least some�relative enhancement of some small bowel wall.�No large or small bowel obstruction although fluid-filled large bowel noted, borderline
right-sided colonic dilatation. Overall findings could represent enteritis. No free air.
Distal colonic diverticulosis.
Top normal lymph nodes again seen in the portacaval region as well as predominantly stable enlarged aortocaval lymph node.
Cholelithiasis. No findings to suggest biliary tract dilatation.
Small simple left renal cyst.
Possible hepatic cirrhotic contour.
No findings to suggest obstructive uropathy bilaterally.
Norovirus
Nausea/Vomiting/Diarrhea
Severe sepsis 2/2 above
-s/p fluid resuscitation - fluids off 12/14
-lactate taking a while to clear likely 2/2 liver disease --> now resolved this AM
-advanced to LRD, patient tolerating
-PT/OT - eventual SNF
Atrial Fibrillation with Rapid Ventricular Rate
Paroxysmal Atrial Fibrillation
-required dilt gtt overnight of admission for afib with RVR to 140's
-HR better with resolution of sepsis
-continue CRIB ATTENDANT Eliquis
-appreciate cardiology consult
-CRIB ATTENDANT Bisoprolol increased to 7.5mg daily
History of Adrenal Insufficiency
Hypotension
-received 100mg hydrocortisone in ER - weaning down stress dose steroids to home prednisone 5mg PO QD starting tomorrow
Heart Failure preserved EF
-resume CRIB ATTENDANT Bumex 1mg PO QD
Essential Hypertension
-resume CRIB ATTENDANT Bisoprolol
-hold CRIB ATTENDANT Losartan
Hypothyroidism
-CRIB ATTENDANT Synthroid
Hyperlipidemia
-CRIB ATTENDANT Statin
MAZARIEGOS Cirrhosis
-CRIB ATTENDANT Rifaximin
-hold CRIB ATTENDANT lactulose for at least one more day
DVT PPx Eliquis
FULL CODE
Anticipated Discharge: 24 - 48 hours
Subjective/Interval History
-
Date of Service: December 16, 2023
no further vomiting or diarrhea
denies feeling short of breath or swollen
Objective Data
-
Labs:
Laboratory Results
12/16/23
04:06
WBC 8.1
Hgb 11.4 L
Hct 35.7 L
Plt Count 146
Sodium 135
Potassium 4.3
Chloride 109 H
Carbon Dioxide 23
BUN 27 H
Creatinine 0.9
Glucose 113 H
Calcium 8.4
Vital Signs:
Vital Signs
Temp Pulse Resp BP Pulse Ox
98.0 F 100 16 126/88 94
12/16/23 07:34 12/16/23 06:00 12/16/23 06:00 12/16/23 06:00 12/16/23 06:00
I&O
12/15/23 12/16/23 12/17/23
06:59 06:59 06:59
Intake Total 2995 / 2995 700 / 700
Balance 2995 / 2995 700 / 700
Review of Systems
-
History Source: Patient
All other systems: Reviewed and negative
Physical Exam
-
General: No Apparent Distress, Appears Chronically Ill and Obese
HEENT: PERRLA
Respiratory: Clear to Auscultation; Negative Wheezes
Cardiac: Irregular Rhythm
GI: Soft and Nontender
Musculoskeletal: No Edema
Skin: Warm and Dry; Negative Rash
Neuro: AO x 3
Psych: Calm
Data Reviewed
-
Diagnostic Radiology: Report Reviewed by me
Labs: Labs Reviewed by me
[2023-12-16] MEDS: ZEBETA 7.5 MG PO (08:45)
[2023-12-16] MEDS: BUMEX 1 MG PO (08:45)
[2023-12-16] MEDS: PROZAC 20 MG PO (08:45)
[2023-12-16] MEDS: FOLVITE 0.400000000000000022 MG PO (08:45)
[2023-12-16] MEDS: PROTONIX 40 MG PO (08:46)
[2023-12-16] MEDS: ELIQUIS 5 MG PO ×2 (08:46→20:19)
[2023-12-16] MEDS: VITAMIN D3 (cholecalciferol) 125 MCG PO (08:46)
[2023-12-16] MEDS: XIFAXAN 550 MG PO ×2 (08:46→20:19)
--- NOTE | 2023-12-16 10:16 | W.PN.CARDCBS ---
Today's Communication / Plan
-
Bumex PO, monitor electrolytes, renal function, daily weights
Rate controlled on bisoprolol; Eliquis for stroke risk reduction
Impression / Plan
-
PCP Dr. Sultana while at [facility]
Primary soldering machine feeder: Dr. Bill Caballero
Assessment:
Nausea, vomiting, diarrhea and suspected Norovirus 12/14/23
Sepsis
Hypokalemia
Afib with RVR and known pAfib
Paroxysmal Afib
Chronic Eliquis OAC
history of pituitary cyst s/p removal 2013
Chronic adrenal insufficiency on chronic steroids
HTN
Hypothyroidism
Obstructive sleep apnea, variable compliance with CPAP
history of statin intolerance
ECHO 10/18/19: Definity study, EF 50-55%, trace MR, no TR: pending
Echo 10/2021: EF 65%, normal RV size and function
Plan:
-Patient symptomatically improved and now eating and drinking without N/V/D on 12/15/23
-Remains in Afib on tele as reviewed by me on 12/15/23 and was started on Cardizem gtt at 10 mg/hr 12/14/23 PM due to increased HRs. Patient with known paroxysmal Afib and was taking bisoprolol 5 mg daily prior to admission, will increase to 7.5 mg
daily for HR control. Will wean Cardizem gtt 12/15/23; AF HR controlled on bisoprolol
-Patient more awake and alert on 12/15/23 and says that she now follows with Dr. Caballero, but denies a h/o heart failure. Called for records and talked with Osmel and she is going to send records 12/15/23, 6 minutes on the phone with [facility].
-Outpatient dose of Eliquis 5 mg BID (age 78, wt 87 kg and Cre 0.9) has been continued. There is no h/o thromboembolic event
-Patient has received 4.5 L IVFs as of 12/15/23 AM. Bumex PO resumed, Follow daily weights.
-EF was preserved in 2019, but patient now follows with an advanced HF specialist although she says she does not have HF.
HPI: Patient was sent from [facility] to with N/V/D and is being admitted with sepsis, Noroviurs and Afib with RVR so cardiology has been consulted. Patient had a leg fracture that was treated at [facility] 09/2023. Patient was sent to [facility] for
rehab and then admitted to 10/2023 with UTI. Patient was seen by cardiology during a previous admission to in 2019, but otherwise sees her primary soldering machine feeder Dr. Al Lewis at [facility]. Patient has a h/o pAfib and is chronically on Eliquis.
During her recent admission to for UTI last month she was in SR by ECG and tele strips. Patient was hypotensive on arrival to [facility] and Afib was rapid. Patient was given IVFs and Cardizem 10 mg IV x1 with improvement. Patient takes Eliquis 5 mg
BID and bisoprolol 5 mg daily as an outpatient.
Update Note from 12/14:
-Patient last seen by Dr. Caballero 05/31/23.
-Paroxysmal Afib firest evaluated at [facility] in 2018
-She was previously ordered a PYP scan, but did not complete because she was afraid of the result. Echo described as NOT having the appearance of infiltrative cardiomyopathy, but ECG low voltage. Ultimately patient not able to complete test and no
further work-up planned.
-Echo 10/2021: EF 65%, normal RV size and function
-Lexiscan nuclear stress test 2021: small mild zied defect mid anterior wall that is fixed, defect did not meet quantitative criteria, normal global LV function
-CHF-NYHA class 3, ACC stage C
Progress Note - Sealer Operator
Subjective
Date of Service: December 16, 2023
Patient seen and examined this morning. No acute events overnight. Patient resting comfortably in bed, finishing breakfast. Denies cp, sob, palpitations, lh, dizziness, near syncope, syncope, or weakness. Notes improved breathing, mild fatigue.
Denies diarrhea or abdominal pain. Tele rate controlled AF
Objective
Labs:
12/16/23 04:06
12/16/23 04:06
Labs
Hgb 11.4 g/dL (12.0-16.0) L 12/16/23 04:06
Hct 35.7 % (37.0-47.0) L 12/16/23 04:06
Plt Count 146 10^3/uL (130-400) 12/16/23 04:06
Sodium 135 mmol/L (135-145) 12/16/23 04:06
Potassium 4.3 mmol/L (3.5-5.1) 12/16/23 04:06
BUN 27 mg/dl (7-17) H 12/16/23 04:06
Creatinine 0.9 mg/dL (0.6-1.0) 12/16/23 04:06
Glucose 113 mg/dl (70-99) H 12/16/23 04:06
Vital Signs and I&O:
Vital Signs
Temp Pulse Resp BP Pulse Ox
98.0 F 100 16 126/88 94
12/16/23 07:34 12/16/23 06:00 12/16/23 06:00 12/16/23 06:00 12/16/23 06:00
Vital Signs
Temp Pulse Resp BP Pulse Ox
98.0 F 100 16 126/88 94
12/16/23 07:34 12/16/23 06:00 12/16/23 06:00 12/16/23 06:00 12/16/23 06:00
Intake & Output
12/14/23 12/15/23 12/16/23 12/17/23
06:59 06:59 06:59 06:59
Intake Total 2995 / 2995 700 / 700
Balance 2995 / 2995 700 / 700
Physical Exam
Physical Exam
GEN: NAD. NAD. AAO x3
HEENT: MMM
LUNGS: No audible wheeze
CV: Irreg irreg, Afib on tele
ABD: soft, BS+
EXT: No edema B/L LE
NEURO: Gross non-focal
SKIN: No rash
--- NOTE | 2023-12-16 10:24 | CM ---
Addendum entered by Trini Brown RN 12/16/23 16:02:
Spoke with Jose Villegas [facility]; they are unable to accept the patient as they have no beds today or through the weekend.
Spoke with Ethel, daughter; informed her of the above re; [facility]. She agrees to additional referrals to [facility]. Daughter will be out of town in [place] but reachable by phone.
Spoke with [facility]; no available beds and no private room available.
Plan await response [facility].
Plan SNF when accepting facility found.
Addendum entered by Trini Brown RN 12/16/23 15:01:
Message from [facility]; they are unable to accept the patient due to her norovirus.
Spoke with daughter; she is aware of no accepting facility at this time. She would like a referral to [facility].
Referral placed for [facility].
Phone call to [facility]; left message requesting response to referral.
Plan follow up SNF referral.
Original Note:
Patient from [facility] SN[facility] with Dx Norovirus, Rapid A fib, PAF. Enhanced Precautions. Receiving IV Solucortef. PT & OT recommend skilled rehab.
SNF referrals placed.
Spoke with Jose Arce [facility]; they have no beds, and have a 10 day rule for Norovirus- they can only accept patients on Day 11.
Spoke with [facility]; they have no female beds and no private rooms.
Spoke with [facility]; she may have an appropriate private room w/ private bathroom and will let CM know if they can accept.
Plan follow up with [facility] for acceptance.
[2023-12-16] MEDS: ZOFRAN 4 MG IV (12:31)
[2023-12-17] VITALS (10 sets, daily range): BP systolic 112–159; BP diastolic 80–118; BMI 35.7
[2023-12-17] MEDS: ULTRAM 25 MG PO (01:40)
[2023-12-17 03:40] LABS: Blood Urea Nitrogen 23 mg/dl (7-17); Calcium 8.2 mg/dl (8.4-10.2); Carbon Dioxide 24 mmol/L (22-30); Chloride 109 mmol/L (98-107); Estimated Creatinine Clearance 62 ml/min; Glucose 96 mg/dl (70-99); Magnesium 1.7 mg/dl (1.6-2.3); Potassium 3.2 mmol/L (3.5-5.1); Sodium 138 mmol/L (135-145); eGFR > 60.00
[2023-12-17] MEDS: MAALOX 30 ML PO (03:59)
--- NOTE | 2023-12-17 04:05 | PTCARENOTE ---
multiple loose yellow bm's during night. pt c/o abd cramping. 25mg ultram given w/o reliefe. motor vehicle license clerk made aware. [place]alox admin. will monitor.
[2023-12-17] MEDS: CYTOMEL 5 MICROGRAM PO (06:53)
[2023-12-17] MEDS: SYNTHROID 100 MCG PO (06:53)
--- NOTE | 2023-12-17 07:35 | W.PN.HOSP.TC ---
Today's Communication/Plan
-
see bold
dispo planning
Assessment / Plan
Assessment / Plan
Ms. Emily Miller is a 78 yo woman with hx paroxysmal atrial fibrillation, essential hypertension, hyperlipidemia, adrenal insufficiency, hypothyroidism, MAZARIEGOS cirrhosis, recent femoral fracture on 10/06 s/p surgery 10/07 (by Dr. Maria De Jesus Verduzco
orthopedic at [facility]), recent DH prolonged hospital course 11/12-12/03/23 for confusion, UTI, adrenal insufficiency, and SANTOSH, who presents to the ER with nausea/vomiting and diarrhea.� She was also found to be in afib with RVR.�
CT A/P
IMPRESSION:
Markedly limited evaluation of intestinal tract without oral contrast. Nondilated small bowel with at least some�relative enhancement of some small bowel wall.�No large or small bowel obstruction although fluid-filled large bowel noted, borderline
right-sided colonic dilatation. Overall findings could represent enteritis. No free air.
Distal colonic diverticulosis.
Top normal lymph nodes again seen in the portacaval region as well as predominantly stable enlarged aortocaval lymph node.
Cholelithiasis. No findings to suggest biliary tract dilatation.
Small simple left renal cyst.
Possible hepatic cirrhotic contour.
No findings to suggest obstructive uropathy bilaterally.
Norovirus
Nausea/Vomiting/Diarrhea
Severe sepsis 2/2 above
-s/p fluid resuscitation - fluids off 12/14
-lactate took a while to clear likely 2/2 liver disease --> now resolved
-advanced to LRD, patient tolerating although with increased cramping and loose BM overnight
-start simethicone
-PT/OT - eventual SNF
Hypokalemia
-replete
Atrial Fibrillation with Rapid Ventricular Rate
Paroxysmal Atrial Fibrillation
-required dilt gtt overnight of admission for afib with RVR to 140's
-HR better with resolution of sepsis
-continue SHIP PURSER Eliquis
-appreciate cardiology consult
-SHIP PURSER Bisoprolol increased to 7.5mg daily
History of Adrenal Insufficiency
Hypotension
-received 100mg hydrocortisone in ER - weaning down stress dose steroids, resuming home prednisone 5mg PO QD morning 12/16
Heart Failure preserved EF
-resume SHIP PURSER Bumex 1mg PO QD (on 12/15)
Essential Hypertension
-resume SHIP PURSER Bisoprolol
-resume 1/2 dose SHIP PURSER Losartan (12/16)
Hypothyroidism
-SHIP PURSER Synthroid
Hyperlipidemia
-SHIP PURSER Statin
MAZARIEGOS Cirrhosis
-SHIP PURSER Rifaximin
-hold SHIP PURSER lactulose for at least one more day as patient continues with frequent BM in setting of infection
DVT PPx Eliquis
FULL CODE
Anticipated Discharge: 24 - 48 hours
Subjective/Interval History
-
Date of Service: December 17, 2023
she has cramping and had multiple BM overnight
Objective Data
-
Labs:
Laboratory Results
12/17/23
03:13
Sodium 138
Potassium 3.2 L D
Chloride 109 H
Carbon Dioxide 24
BUN 23 H
Creatinine 0.8
Glucose 96
Calcium 8.2 L
Vital Signs:
Vital Signs
Temp Pulse Resp BP Pulse Ox
97.6 F 106 23 159/110 95
12/17/23 03:25 12/17/23 04:00 12/17/23 04:00 12/17/23 00:00 12/17/23 04:00
I&O
12/16/23 12/17/23 12/18/23
06:59 06:59 06:59
Intake Total 700 / 700
Balance 700 / 700
Review of Systems
-
History Source: Patient
All other systems: Reviewed and negative
Physical Exam
-
General: No Apparent Distress, Appears Chronically Ill and Obese
HEENT: PERRLA
Respiratory: Clear to Auscultation; Negative Wheezes
Cardiac: Irregular Rhythm
GI: Soft and Nontender
Musculoskeletal: No Edema
Skin: Warm and Dry; Negative Rash
Neuro: AO x 3
Psych: Calm
Data Reviewed
-
Diagnostic Radiology: Report Reviewed by me
Labs: Labs Reviewed by me
[2023-12-17] MEDS: MAGNESIUM SULFATE 50 IV (08:07)
[2023-12-17] MEDS: FLUSH (NSS) 1 FLUSH IV (08:09)
[2023-12-17] MEDS: KCL 40 MEQ PO (08:50)
[2023-12-17] MEDS: MYLICON 80 MG PO (08:50)
[2023-12-17] MEDS: ZEBETA 7.5 MG PO (08:50)
[2023-12-17] MEDS: DELTASONE 5 MG PO (08:51)
[2023-12-17] MEDS: ELIQUIS 5 MG PO ×2 (08:51→21:09)
[2023-12-17] MEDS: BUMEX 1 MG PO (08:51)
[2023-12-17] MEDS: COZAAR 50 MG PO (08:51)
[2023-12-17] MEDS: PROTONIX 40 MG PO (08:51)
[2023-12-17] MEDS: VITAMIN D3 (cholecalciferol) 125 MCG PO (08:52)
[2023-12-17] MEDS: XIFAXAN 550 MG PO ×2 (08:52→21:09)
[2023-12-17] MEDS: FOLVITE 0.400000000000000022 MG PO (08:52)
[2023-12-17] MEDS: PROZAC 20 MG PO (08:53)
--- NOTE | 2023-12-17 09:12 | PTCARENOTE ---
assumed care after walking rounds. pt is alert and oriented x 3, easily arousable from sleep. Follows commands appropriately. C/o abdominal cramping and night staff report 6 loose BMs throughout the night. Dr. Potter here this am and orders for
magnesium and potassium replacement noted and meds given. Pt reports feeling hungry but with abdominal cramping, order for Simethicone obtained and med given. Pt did order toast and will attempt p.o. intake. Oxygen on at 1L -pt reports she wears it
at night 1L NC, lungs diminished throughout No cough present. Pulse ox 94%. Heart rate irregular 110s. Cardiology at bedside at this time and reviewed plan of care with pt and pt verbalizes understanding. Pt feels 'tired' today after restless nigh
seep due to bowel movements and frequent clean up.
--- NOTE | 2023-12-17 09:34 | W.PN.CARDCBS ---
Today's Communication / Plan
-
Replete electrolytes
Wean O2 as tolerated
PO diuretic, OAC, BB
Supportive care
Impression / Plan
-
PCP Dr. Sultana while at [facility]
Primary bullion weigher: Dr. Bill Caballero
Assessment:
Nausea, vomiting, diarrhea and + Norovirus 12/14/23; recurrent diarrhea overnight 12/15-12/16
Sepsis
Hypokalemia
Afib with RVR and known pAfib
Paroxysmal Afib
Chronic Eliquis OAC
history of pituitary cyst s/p removal 2013
Chronic adrenal insufficiency on chronic steroids
HTN
Hypothyroidism
Obstructive sleep apnea, variable compliance with CPAP
history of statin intolerance
ECHO 10/18/19: Definity study, EF 50-55%, trace MR, no TR: pending
Echo 10/2021: EF 65%, normal RV size and function
Plan:
-Patient symptomatically improved and now eating and drinking but recurrent voluminous diarrhea overnight 12/15-12/16
-AF HR controlled on bisoprolol increased to 7.5 mg daily; uptitrate as tolerated for BP and rate control
-Patient more awake and alert on 12/15/23 and says that she now follows with Dr. Caballero, but denies a h/o heart failure. Called for records and talked with Osmel and she is going to send records 12/15/23, 6 minutes on the phone with [facility].
-Outpatient dose of Eliquis 5 mg BID (age 78, wt 87 kg and Cre 0.9) has been continued. There is no h/o thromboembolic event
-Patient has received 4.5 L IVFs as of 12/15/23 AM. Bumex PO resumed, Follow daily weights
-EF was preserved in 2019, but patient now follows with an advanced HF specialist although she says she does not have HF.
-Replete electrolytes, goal K>4, Mg>2 in the setting of diuresis and diarrhea
HPI: Patient was sent from [facility] to with N/V/D and is being admitted with sepsis, Noroviurs and Afib with RVR so cardiology has been consulted. Patient had a leg fracture that was treated at [facility] 09/2023. Patient was sent to [facility] for
rehab and then admitted to 10/2023 with UTI. Patient was seen by cardiology during a previous admission to in 2019, but otherwise sees her primary bullion weigher Dr. Al Lewis at [facility]. Patient has a h/o pAfib and is chronically on Eliquis.
During her recent admission to for UTI last month she was in SR by ECG and tele strips. Patient was hypotensive on arrival to [facility] and Afib was rapid. Patient was given IVFs and Cardizem 10 mg IV x1 with improvement. Patient takes Eliquis 5 mg
BID and bisoprolol 5 mg daily as an outpatient.
Update Note from 12/14:
-Patient last seen by Dr. Caballero 05/31/23.
-Paroxysmal Afib firest evaluated at [facility] in 2018
-She was previously ordered a PYP scan, but did not complete because she was afraid of the result. Echo described as NOT having the appearance of infiltrative cardiomyopathy, but ECG low voltage. Ultimately patient not able to complete test and no
further work-up planned.
-Echo 10/2021: EF 65%, normal RV size and function
-Lexiscan nuclear stress test 2021: small mild zied defect mid anterior wall that is fixed, defect did not meet quantitative criteria, normal global LV function
-CHF-NYHA class 3, ACC stage C
Progress Note - Deputy Commissioner
Subjective
Date of Service: December 17, 2023
Patient seen and examined. Overnight, patient with recurrent diarrhea. No F/c. Denies cp, sob, palpitations, or weakness. Notes overall improvement in breathing.
Objective
Labs:
12/16/23 04:06
12/17/23 03:13
Labs
Hgb 11.4 g/dL (12.0-16.0) L 12/16/23 04:06
Hct 35.7 % (37.0-47.0) L 12/16/23 04:06
Plt Count 146 10^3/uL (130-400) 12/16/23 04:06
Sodium 138 mmol/L (135-145) 12/17/23 03:13
Potassium 3.2 mmol/L (3.5-5.1) L D 12/17/23 03:13
BUN 23 mg/dl (7-17) H 12/17/23 03:13
Creatinine 0.8 mg/dL (0.6-1.0) 12/17/23 03:13
Glucose 96 mg/dl (70-99) 12/17/23 03:13
Vital Signs and I&O:
Vital Signs
Temp Pulse Resp BP Pulse Ox
98.4 F 110 23 136/96 95
12/17/23 07:16 12/17/23 08:51 12/17/23 04:00 12/17/23 08:51 12/17/23 04:00
Vital Signs
Temp Pulse Resp BP Pulse Ox
98.4 F 110 23 136/96 95
12/17/23 07:16 12/17/23 08:51 12/17/23 04:00 12/17/23 08:51 12/17/23 04:00
Intake & Output
12/15/23 12/16/23 12/17/23 12/18/23
06:59 06:59 06:59 06:59
Intake Total 2995 / 2995 700 / 700
Balance 2995 / 2995 700 / 700
Physical Exam
Physical Exam
GEN: NAD. NAD. AAO x3
HEENT: MMM
LUNGS: No audible wheeze
CV: Irreg irreg, Afib on tele
ABD: soft, BS+
EXT: No edema B/L LE
NEURO: Gross non-focal
SKIN: No rash
--- NOTE | 2023-12-17 19:30 | PTCARENOTE ---
Pt had one small loose light brown stool today and 1 large light brown stool. pt did complain of burning with urination. Order for st cath for UA but incontinent of large saturation prior to being able to obtain the specimen. Will monitor bladder
scan for urine
--- NOTE | 2023-12-17 20:00 | PTCARENOTE ---
Resumed care of pt laying in bed AAOx3, TUNUNAK. HR 110-120 in Afib on the monitor. HR irreg. +2 pitting generalized anasarca noted. Pale skin t/o. POX 97% on 1LO2NC. B/L base fine crackles noted. + bowel, round obese abd. Pt inc of loose stool. pt
reports intermittent abd cramping and discomfort, reports at tolerable level at this time. pt verbalized need to void, clean cath urine specimen obtained and sent to lab. Kylie care provided, moisture barrier applied. Palpable peripheral pulses
present. Right AC int in place. Pt repositioned per comfort. Pt refusing oral care at this time. Will continue to monitor.
[2023-12-17 21:25] LABS: Urine Albumin Negative (Neg - Trace); Urine Bilirubin Negative (Negative); Urine Character Slightly Cloudy (Clear); Urine Color Yellow; Urine Glucose Negative (Negative); Urine Ketone Negative (Negative); Urine Leukocyte 2+ (Negative); Urine Nitrite Negative (Negative); Urine Occult Blood 1+ (Negative); Urine Urobilinogen Negative (Neg - 1+)
[2023-12-17 22:43] LABS: Urine Bacteria Few (Negative); Urine White Cell >100 /HPF (0-5)
[2023-12-18] VITALS (16 sets, daily range): BP systolic 123–158; BP diastolic 80–118; PULSE 99–102; O2SAT 94–98; BMI 34.8
[2023-12-18 05:08] LABS: Blood Urea Nitrogen 17 mg/dl (7-17); Calcium 7.7 mg/dl (8.4-10.2); Carbon Dioxide 28 mmol/L (22-30); Chloride 105 mmol/L (98-107); Estimated Creatinine Clearance 71 ml/min; Glucose 77 mg/dl (70-99); Magnesium 1.7 mg/dl (1.6-2.3); Potassium 3.3 mmol/L (3.5-5.1); Sodium 135 mmol/L (135-145); eGFR > 60.00
[2023-12-18] MEDS: KCL 40 MEQ PO (06:16)
[2023-12-18] MEDS: SYNTHROID 100 MCG PO (06:16)
--- NOTE | 2023-12-18 07:27 | W.PN.HOSP.TC ---
Addendum entered and electronically signed by Therese Potter MD 12/18/23 08:33:
ID consulted given Meropenem allergy (tremors) last admission
Original Note:
Today's Communication/Plan
-
start IV Meropenem for UTI and follow up final culture; may need to be inpatient to complete 3 day course
hold lactulose until patient goes 24 hours without loose stool, recovering from norovirus
continue NURSERY LABORER Bisoprolol at higher dose
1/2 dose losartan for now
NURSERY LABORER Bumex resumed
K and Mag repletion
Eventual SNF
Assessment / Plan
Assessment / Plan
Ms. Emily Miller is a 78 yo woman with hx paroxysmal atrial fibrillation, essential hypertension, hyperlipidemia, adrenal insufficiency, hypothyroidism, MAZARIEGOS cirrhosis, recent femoral fracture on 10/06 s/p surgery 10/07 (by Dr. Maria De Jesus Verduzco
orthopedic at [facility]), recent DH prolonged hospital course 11/12-12/03/23 for confusion, UTI, adrenal insufficiency, and SANTOSH, who presents to the ER with nausea/vomiting and diarrhea.� She was also found to be in afib with RVR.�
CT A/P
IMPRESSION:
Markedly limited evaluation of intestinal tract without oral contrast. Nondilated small bowel with at least some�relative enhancement of some small bowel wall.�No large or small bowel obstruction although fluid-filled large bowel noted, borderline
right-sided colonic dilatation. Overall findings could represent enteritis. No free air.
Distal colonic diverticulosis.
Top normal lymph nodes again seen in the portacaval region as well as predominantly stable enlarged aortocaval lymph node.
Cholelithiasis. No findings to suggest biliary tract dilatation.
Small simple left renal cyst.
Possible hepatic cirrhotic contour.
No findings to suggest obstructive uropathy bilaterally.
Norovirus
Nausea/Vomiting/Diarrhea
Severe sepsis 2/2 above
-s/p fluid resuscitation - fluids off 12/14
-lactate took a while to clear likely 2/2 liver disease --> now resolved
-advanced to LRD, patient tolerating. Today she reports decreased cramping
-simethicone PRN
-NURSERY LABORER lactulose held --> resume after goes 24 hours without loose stools
-PT/OT - eventual SNF
Hypokalemia
-replete
-replete Mag
UTI
Hx ESBL UTI
-on 12/16 patient complained of burning with urination, UA came back in evening with > 100 WBC.
-based on prior cultures will start IV Meropenem and plan for at least 3 day course
Atrial Fibrillation with Rapid Ventricular Rate
Paroxysmal Atrial Fibrillation
-required dilt gtt overnight of admission for afib with RVR to 140's
-HR better with resolution of sepsis
-continue NURSERY LABORER Eliquis
-appreciate cardiology consult
-NURSERY LABORER Bisoprolol increased to 7.5mg daily
History of Adrenal Insufficiency
Hypotension
-s/p course of stress dose steroids
-NURSERY LABORER prednisone 5mg PO QD resumed morning 12/16 - BP stable
Heart Failure preserved EF
-resume NURSERY LABORER Bumex 1mg PO QD (on 12/15)
Essential Hypertension
-resumed NURSERY LABORER Bisoprolol
-resume 1/2 dose NURSERY LABORER Losartan (12/16)
Hypothyroidism
-NURSERY LABORER Synthroid
Hyperlipidemia
-NURSERY LABORER Statin
MAZARIEGOS Cirrhosis
-NURSERY LABORER Rifaximin
-hold NURSERY LABORER lactulose for at least one more day as patient continues with frequent BM in setting of infection
DVT PPx Eliquis
FULL CODE
Anticipated Discharge: > 48 hours
Subjective/Interval History
-
Date of Service: December 18, 2023
less abdominal cramping
no vomiting
had some loose stools yesterday
complains of slight burning on urination
Objective Data
-
Labs:
Laboratory Results
12/18/23
04:16
Sodium 135
Potassium 3.3 L
Chloride 105
Carbon Dioxide 28
BUN 17
Creatinine 0.7
Glucose 77
Calcium 7.7 L
Vital Signs:
Vital Signs
Temp Pulse Resp BP Pulse Ox
97.0 F 109 17 139/92 96
12/18/23 03:30 12/18/23 06:00 12/18/23 06:00 12/18/23 06:00 12/18/23 06:00
I&O
12/17/23 12/18/23 12/19/23
06:59 06:59 06:59
Intake Total 1310 / 1310
Balance 1310 / 1310
Review of Systems
-
History Source: Patient
All other systems: Reviewed and negative
Physical Exam
-
General: No Apparent Distress, Appears Chronically Ill and Obese
HEENT: PERRLA
Respiratory: Clear to Auscultation; Negative Wheezes
Cardiac: Irregular Rhythm
GI: Soft and Nontender
Musculoskeletal: No Edema
Skin: Warm and Dry; Negative Rash
Neuro: AO x 3
Psych: Calm
Data Reviewed
-
Diagnostic Radiology: Report Reviewed by me
Labs: Labs Reviewed by me
[2023-12-18] MEDS: XIFAXAN 550 MG PO ×2 (08:16→19:44)
[2023-12-18] MEDS: MAGNESIUM SULFATE 102 GRAMS IV (08:16)
[2023-12-18] MEDS: PROZAC 20 MG PO (08:16)
[2023-12-18] MEDS: COZAAR 50 MG PO (08:17)
[2023-12-18] MEDS: VITAMIN D3 (cholecalciferol) 125 MCG PO (08:17)
[2023-12-18] MEDS: DELTASONE 5 MG PO (08:17)
[2023-12-18] MEDS: FOLVITE 0.400000000000000022 MG PO (08:17)
[2023-12-18] MEDS: PROTONIX 40 MG PO (08:17)
[2023-12-18] MEDS: ELIQUIS 5 MG PO ×2 (08:17→19:44)
[2023-12-18] MEDS: ZEBETA 7.5 MG PO (08:17)
[2023-12-18] MEDS: BUMEX 1 MG PO (08:17)
[2023-12-18] MEDS: CYTOMEL 5 MICROGRAM PO (08:17)
--- NOTE | 2023-12-18 09:52 | W.PN.CARDCBS ---
Today's Communication / Plan
-
Increase bisoprolol to 10 mg daily
UTI, diarrhea care per primary
Replete electrolytes
Wean O2 as tolerated
Stable from CV standpoint
Impression / Plan
-
PCP Dr. Sultana while at [facility]
Primary pressroom foreman: Dr. Bill Caballero
Assessment:
Nausea, vomiting, diarrhea and + Norovirus 12/14/23; recurrent diarrhea overnight 12/15-12/16 and 12/17
UTI, on ABX
Sepsis
Hypokalemia
Afib with RVR and known pAfib
Paroxysmal Afib
Chronic Eliquis OAC
history of pituitary cyst s/p removal 2013
Chronic adrenal insufficiency on chronic steroids
HTN
Hypothyroidism
Obstructive sleep apnea, variable compliance with CPAP
history of statin intolerance
ECHO 10/18/19: Definity study, EF 50-55%, trace MR, no TR: pending
Echo 10/2021: EF 65%, normal RV size and function
Plan:
-Patient symptomatically improved and now eating and drinking but recurrent voluminous diarrhea overnight 12/15-12/16
-AF HR controlled on bisoprolol increased to 7.5 mg daily; increase to 10 mg daily for improved HR and BP management
-Patient more awake and alert on 12/15/23 and says that she now follows with Dr. Caballero, but denies a h/o heart failure. Called for records and talked with Osmel and she is going to send records 12/15/23, 6 minutes on the phone with [facility].
-Outpatient dose of Eliquis 5 mg BID (age 78, wt 87 kg and Cre 0.9) has been continued. There is no h/o thromboembolic event
-Patient has received 4.5 L IVFs as of 12/15/23 AM. Bumex PO resumed, Follow daily weights
-EF was preserved in 2019, but patient now follows with an advanced HF specialist although she says she does not have HF.
-Replete electrolytes, goal K>4, Mg>2 in the setting of diuresis and diarrhea
HPI: Patient was sent from [facility] to with N/V/D and is being admitted with sepsis, Noroviurs and Afib with RVR so cardiology has been consulted. Patient had a leg fracture that was treated at [facility] 09/2023. Patient was sent to [facility] for
rehab and then admitted to 10/2023 with UTI. Patient was seen by cardiology during a previous admission to in 2019, but otherwise sees her primary pressroom foreman Dr. Al Lewis at [facility]. Patient has a h/o pAfib and is chronically on Eliquis.
During her recent admission to for UTI last month she was in SR by ECG and tele strips. Patient was hypotensive on arrival to [facility] and Afib was rapid. Patient was given IVFs and Cardizem 10 mg IV x1 with improvement. Patient takes Eliquis 5 mg
BID and bisoprolol 5 mg daily as an outpatient.
Update Note from 12/14:
-Patient last seen by Dr. Caballero 05/31/23.
-Paroxysmal Afib firest evaluated at [facility] in 2018
-She was previously ordered a PYP scan, but did not complete because she was afraid of the result. Echo described as NOT having the appearance of infiltrative cardiomyopathy, but ECG low voltage. Ultimately patient not able to complete test and no
further work-up planned.
-Echo 10/2021: EF 65%, normal RV size and function
-Lexiscan nuclear stress test 2021: small mild zied defect mid anterior wall that is fixed, defect did not meet quantitative criteria, normal global LV function
-CHF-NYHA class 3, ACC stage C
Progress Note - Bullet Casting Operator
Subjective
Date of Service: December 18, 2023
Patient seen and examined. No acute events overnight. Patient resting comfortably. Notes improvement breathing and swelling. No cp, palpitations or weakness.
Objective
Labs:
12/16/23 04:06
12/18/23 04:16
Labs
Hgb 11.4 g/dL (12.0-16.0) L 12/16/23 04:06
Hct 35.7 % (37.0-47.0) L 12/16/23 04:06
Plt Count 146 10^3/uL (130-400) 12/16/23 04:06
Sodium 135 mmol/L (135-145) 12/18/23 04:16
Potassium 3.3 mmol/L (3.5-5.1) L 12/18/23 04:16
BUN 17 mg/dl (7-17) 12/18/23 04:16
Creatinine 0.7 mg/dL (0.6-1.0) 12/18/23 04:16
Glucose 77 mg/dl (70-99) 12/18/23 04:16
Vital Signs and I&O:
Vital Signs
Temp Pulse Resp BP Pulse Ox
97.8 F 102 17 139/92 96
12/18/23 07:49 12/18/23 08:17 12/18/23 06:00 12/18/23 08:17 12/18/23 06:00
Vital Signs
Temp Pulse Resp BP Pulse Ox
97.8 F 102 17 139/92 96
12/18/23 07:49 12/18/23 08:17 12/18/23 06:00 12/18/23 08:17 12/18/23 06:00
Intake & Output
12/16/23 12/17/23 12/18/23 12/19/23
06:59 06:59 06:59 06:59
Intake Total 700 / 700 1310 / 1310
Balance 700 / 700 1310 / 1310
Physical Exam
Physical Exam
GEN: NAD. NAD. AAO x3
HEENT: MMM
LUNGS: No audible wheeze
CV: Irreg irreg, Afib on tele
ABD: soft, BS+
EXT: No edema B/L LE
NEURO: Gross non-focal
SKIN: No rash
[2023-12-18] MEDS: ZEBETA PO (10:11)
--- NOTE | 2023-12-18 11:00 | CON.ID ---
Consultation
-
Date/Time Consultation Requested: 12/18/23 8:33
Date/Time Consultation Performed: 12/18/23 11:02
Requesting Provider: Dr Potter
Performing Provider: Dr Barnhart
Reason for Consultation: UTI
Chief Complaint / Past History
Chief Complaint
nausea/vomiting/diarrhea
History of Present Illness
Ms Miller is a 78 year old female with history of Ngo cirrhosis, recent UTI due to ESBL Kleb Pneumo, who presented here 12/13 for nausea, vomiting diarrhea, several days of stomach cramps, no fevers or chills. Of note with recent hip fracture 10/06
and sh/p repair 10/07
Since arrival here she has been afebrile, bp stable, wbc on arrival 16.6, hgb 14, plt 146, L shift was noted, cr 0.7, 12/16 ua with gross pyuria, 12/13 ua negative, 12/13 ct a/p enteritis, diverticulosis, cirrhosis, urine culture pending, 12/13 stool +
norovirus, blood cultures no growth at 4 days. Reported allergy to meropenem - tremors. Now complaining of new dysuria no flank pain or suprapubic tenderness. ID is consulted for assistance with management.
Past History
Additional Past Medical History:
Atrial fibrillation, paroxysmal
CHF, last known ef in 2019 was 50%, likely chronic diastolic failure
essential HTN,
Hypercholesterolemia
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
liver cirrhosis (NGO)
Additional Past Surgical History:
,
Orthopedic surgery
Tonsilectomy
Allergy History:
meropenem Allergy (Intermediate, Verified 12/16/23 06:54)
tremors
Penicillins Allergy (Verified 12/16/23 06:54)
Hives
amlodipine Adverse Reaction (Intermediate, Verified 12/16/23 06:54)
Swelling
Medications Reviewed: Yes
Social History
Tobacco: Non-Smoker
Alcohol: None
Drug: None
Family History
Family History: Not Pertinent
Review of Systems
Review of Systems
General: Negative Fever or Chills
All systems: All other systems were reviewed and were negative
Vital Signs
Temp Pulse Resp BP Pulse Ox
97.8 F 102 17 139/92 96
12/18/23 07:49 12/18/23 08:17 12/18/23 06:00 12/18/23 08:17 12/18/23 06:00
Physical Exam
Physical Exam
Constitutional: No Acute Distress and Chronically Ill
Cardiovascular: Regular Rate and S1/S2; Negative Murmur or Rub
Pulmonary: Clear and Symmetric; Negative Wheezes, Rales or Rhonchi
Gastrointestinal: Soft, Non Tender, Non Distended and Normal Bowel Sounds
Skin: Warm and Dry; Negative Rash or Jaundice
Lab / Diagnostic Study Results
12/16/23 04:06
12/18/23 04:16
Abs Immat Gran (auto) 0.1 10^3/uL (0-0.05) H 12/15/23 03:33
Absolute Neuts (auto) 8.9 10^3/uL (1.4-6.5) H 12/15/23 03:33
Absolute Lymphs (auto) 0.6 10^3/uL (1.2-3.4) L 12/15/23 03:33
Absolute Monos (auto) 0.2 10^3/uL (0.1-0.6) 12/15/23 03:33
Absolute Basos (auto) 0.0 10^3/uL (0-0.2) 12/15/23 03:33
Immature Gran % 0.6 % (0-0.5) H 12/15/23 03:33
Neutrophils % 91.1 % (42.2-75.2) H 12/15/23 03:33
Lymphocytes % 5.6 % (20.5-51.1) L 12/15/23 03:33
Monocytes % 2.5 % (1.7-9.3) 12/15/23 03:33
Eosinophils % 0.1 % (0-6) 12/15/23 03:33
Basophils % 0.1 % (0-2) 12/15/23 03:33
Lactic Acid 2.0 mmol/L (0.7-2.0) 12/16/23 04:06
Ur Squamous Epith Cells 0-2 /LPF (Few) 12/14/23 12:43
Microbiology Results
Micro:
12/14/23 08:16 Blood Culture - Preliminary
Blood/Venous No Growth in 4 days- Final report to follow
12/14/23 10:20 Blood Culture - Preliminary
Blood/Venous No Growth in 4 days- Final report to follow
12/17/23 21:08 Urine Culture - Pending
Urine
12/14/23 08:58 Salmonella/Shigella Culture - Final
Feces/Stool No Salmonella, Shigella, Aeromonas or Plesiomonas species
isolated.
Campylobacter Culture - Final
No Campylobacter species isolated.
Shiga Toxin Test - Final
No E. coli Shiga Toxin 1 or 2 detected.
12/14/23 08:58 C. difficile GDH Antigen & Toxins - Final
Feces/Stool Negative for toxigenic C.difficile
- Final
Positive for Norovirus GII
Assessment / Plan
UTI
Colonization with ESBL klebsiella
Norovirus - resolving
Reported allergies to penicillin - hives, and meropenem 'tremors
- supportive care for norovirus, keep up fluid intake
- follow urine culture
- fosfomycin x1 now - full course
- follow up with PCP
Care Review
Plan reviewed with: Physician (Dr Potter)
[2023-12-18] MEDS: MONUROL 3 GM PO (12:43)
--- NOTE | 2023-12-18 14:35 | W.PN.UPDATE ---
Update Note
Progress Note Update
discussed with RN, no loose stools today. will resume lactulose this evening.
--- NOTE | 2023-12-18 16:55 | PTCARENOTE ---
Pt alert and pleasant. HR remains 100-120 Afib. No episodes of diarrhea today. OOB to chair w/ PT/OT and remained for a couple hours. Heavy assist x 2 to stand and pivot.
[2023-12-19] VITALS (13 sets, daily range): BP systolic 102–158; BP diastolic 73–114; O2SAT 92; BMI 34.7; BMI 33.9
[2023-12-19] MEDS: SYNTHROID 100 MCG PO (05:47)
[2023-12-19] MEDS: XIFAXAN 550 MG PO ×2 (08:38→20:20)
[2023-12-19] MEDS: CYTOMEL 5 MICROGRAM PO (08:38)
[2023-12-19] MEDS: PROTONIX 40 MG PO (08:38)
[2023-12-19] MEDS: ZEBETA 10 MG PO (08:38)
[2023-12-19] MEDS: BUMEX 1 MG PO (08:38)
[2023-12-19] MEDS: COZAAR 50 MG PO (08:39)
[2023-12-19] MEDS: DELTASONE 5 MG PO (08:39)
[2023-12-19] MEDS: VITAMIN D3 (cholecalciferol) 125 MCG PO (08:39)
[2023-12-19] MEDS: ELIQUIS 5 MG PO ×2 (08:39→20:20)
[2023-12-19] MEDS: PROZAC 20 MG PO (08:39)
[2023-12-19] MEDS: FOLVITE 0.400000000000000022 MG PO (08:39)
--- NOTE | 2023-12-19 10:53 | W.PN.ID1 ---
Date of Service
Date of Service: December 19, 2023
Today's Communication
- completed single dose of fosfomycin which is a full course
- follow up with PCP
Assessment / Plan
UTI
Colonization with ESBL klebsiella
Norovirus - resolved
Reported allergies to penicillin - hives, and meropenem 'tremors
- follow urine culture
- completed single dose of fosfomycin which is a full course
- follow up with PCP
Chief Complaint
-: UTI
Subjective / Review of Systems
afebrile
bp stable
hgb stable
urine culture pending
i feel better - the burning is gone
Vital Signs / Physical Exam
Vital Signs
Vital Signs
Temp Pulse Resp BP Pulse Ox
97.3 F 108 15 147/98 97
12/19/23 07:37 12/19/23 10:00 12/19/23 10:00 12/19/23 10:00 12/19/23 10:00
Physical Exam
Constitutional: No Acute Distress
Cardiovascular: Regular Rate and S1/S2; Negative Murmur or Rub
Pulmonary: Clear and Symmetric; Negative Wheezes or Rales
Gastrointestinal: Soft, Non Tender, Non Distended and Normal Bowel Sounds
Skin: Warm and Dry; Negative Rash or Jaundice
Objective Data
Lab Data
Lab Results
12/16/23 04:06
12/18/23 04:16
Estimated Creat Clear 71 ml/min 12/18/23 04:16
Lactic Acid 2.0 mmol/L (0.7-2.0) 12/16/23 04:06
Total Bilirubin 1.2 mg/dl (0.2-1.3) 12/15/23 08:12
AST 47 U/L (14-36) H 12/15/23 08:12
ALT 22 U/L (0-35) 12/15/23 08:12
Alkaline Phosphatase 121 U/L (38-126) 12/15/23 08:12
Most recent labs reviewed.
Micro Results:
12/14/23 08:16 Blood Culture - Final
Blood/Venous No Growth - Final Report
12/14/23 10:20 Blood Culture - Final
Blood/Venous No Growth - Final Report
12/17/23 21:08 Urine Culture - Pending
Urine
12/14/23 08:58 Salmonella/Shigella Culture - Final
Feces/Stool No Salmonella, Shigella, Aeromonas or Plesiomonas species
isolated.
Campylobacter Culture - Final
No Campylobacter species isolated.
Shiga Toxin Test - Final
No E. coli Shiga Toxin 1 or 2 detected.
12/14/23 08:58 C. difficile GDH Antigen & Toxins - Final
Feces/Stool Negative for toxigenic C.difficile
- Final
Positive for Norovirus GII
--- NOTE | 2023-12-19 12:11 | W.PN.CARDCBS ---
Addendum entered and electronically signed by Cabrera Dalal MD 12/19/23 13:37:
I saw and examined the patient.
The HELP DESK MANAGER or PA's note was reviewed and I agree with the note.
Comment: General: Well developed, well nourished in NAD.
Neck: Supple, no JVD, HJR, carotids +2 B/L, no bruits bilaterally.
Heart: Non displaced PMI, irregular, no murmurs, No S3, S4, no rubs.
Lungs: Scattered rhonchi
Extremities: No clubbing, cyanosis or edema bilaterally.
Neuro: Grossly nonfocal, awake, alert and oriented x3.
Heart rate controlled in A-fib mildly elevated but acceptable. Continue bisoprolol and Eliquis. Stable cardiology status for transfer to telemetry. Might consider adding Cardizem if heart rate remains suboptimal
Original Note:
Today's Communication / Plan
-
Continue bisoprolol 10mg daily for HR control
Continue Eliquis 5mg BID
Impression / Plan
-
PCP Dr. Bender while at [facility]
Primary Fur Trimmer: Dr. Caballero ([facility]), last seen 05/31/2023
Assessment:
Nausea, vomiting, diarrhea and + Norovirus 12/14/23
UTI, on ABX
Sepsis
Hypokalemia
Paroxysmal Afib w/ RVR
Chronic Eliquis OAC
h/o pituitary cyst s/p removal 2013
Chronic adrenal insufficiency on chronic steroids
Chronic HFpEF -NYHA class 3, ACC stage C
HTN
Hypothyroidism
Obstructive sleep apnea, variable compliance with CPAP
h/o statin intolerance
Lexiscan nuclear stress test 2021: small mild zied defect mid anterior wall that is fixed, defect did not meet quantitative criteria, normal global LV function
Echo 10/18/19: Definity study, EF 50-55%, trace MR, no TR: pending
Echo 10/2021: EF 65%, normal RV size and function
Plan:
-Presented with sepsis due to norovirus. Also w/ rapid afib.
-Patient symptomatically improving throughout admission.
-HRs improved and overall stable in Afib on current dose of bisoprolol 10mg daily.
-Continue Eliquis 5mg BID.
-Continue PO Bumex. Weight near baseline.
-K 3.3 w/ mag 1.7. Replete. Goal K>4, Mg>2 in the setting of diuresis and diarrhea
-As OP, previously was ordered a PYP scan, but did not complete because she was afraid of the result. Echo described as NOT having the appearance of infiltrative cardiomyopathy, but ECG low voltage. Ultimately patient not able to complete test and
no further work-up planned.
HPI: Patient was sent from [facility] to with N/V/D and is being admitted with sepsis, Noroviurs and Afib with RVR so cardiology has been consulted. Patient had a leg fracture that was treated at [facility] 09/2023. Patient was sent to [facility] for
rehab and then admitted to 10/2023 with UTI. Patient was seen by cardiology during a previous admission to in 2019, but otherwise sees her primary basket assembler Dr. Al Lewis at [facility]. Patient has a h/o pAfib and is chronically on Eliquis.
During her recent admission to for UTI last month she was in SR by ECG and tele strips. Patient was hypotensive on arrival to [facility] and Afib was rapid. Patient was given IVFs and Cardizem 10 mg IV x1 with improvement. Patient takes Eliquis 5 mg
BID and bisoprolol 5 mg daily as an outpatient.
Progress Note - Fur Trimmer
Subjective
Date of Service: December 19, 2023
Objective
Labs:
12/16/23 04:06
12/18/23 04:16
Labs
Hgb 11.4 g/dL (12.0-16.0) L 12/16/23 04:06
Hct 35.7 % (37.0-47.0) L 12/16/23 04:06
Plt Count 146 10^3/uL (130-400) 12/16/23 04:06
Sodium 135 mmol/L (135-145) 12/18/23 04:16
Potassium 3.3 mmol/L (3.5-5.1) L 12/18/23 04:16
BUN 17 mg/dl (7-17) 12/18/23 04:16
Creatinine 0.7 mg/dL (0.6-1.0) 12/18/23 04:16
Glucose 77 mg/dl (70-99) 12/18/23 04:16
Vital Signs and I&O:
Vital Signs
Temp Pulse Resp BP Pulse Ox
98.1 F 108 15 147/98 97
12/19/23 11:48 12/19/23 10:00 12/19/23 10:00 12/19/23 10:00 12/19/23 10:00
Vital Signs
Temp Pulse Resp BP Pulse Ox
98.1 F 108 15 147/98 97
12/19/23 11:48 12/19/23 10:00 12/19/23 10:00 12/19/23 10:00 12/19/23 10:00
Intake & Output
12/17/23 12/18/23 12/19/23 12/20/23
06:59 06:59 06:59 06:59
Intake Total 1310 / 1310 720 / 720 360 / 360
Output Total 2150 / 2150
Balance 1310 / 1310 -1430 / -1430 360 / 360
--- NOTE | 2023-12-19 12:17 | PTCARENOTE ---
Assumed care of patient from previous RN at beginning of this shift; cannot verify accuracy of vital signs prior to 0700. POx 94-95% on RA; wears 2l n/c overnight per report. Patient had 1 soft brown bm this morning; she refused lactulose. See
worklist for full assessment and vital signs; see MAR for med administration.
--- NOTE | 2023-12-19 12:32 | W.PN.HOSP.TC ---
Today's Communication/Plan
-
rate control agents per cards
replete lytes
OOB
If HR stable tx to tele
Assessment / Plan
Assessment / Plan
Ms. Emily Miller is a 78 yo woman with hx paroxysmal atrial fibrillation, essential hypertension, hyperlipidemia, adrenal insufficiency, hypothyroidism, MAZARIEGOS cirrhosis, recent femoral fracture on 10/06 s/p surgery 10/07 (by Dr. Maria De Jesus Verduzco
orthopedic at [facility]), recent DH prolonged hospital course 11/12-12/03/23 for confusion, UTI, adrenal insufficiency, and SANTOSH, who presents to the ER with nausea/vomiting and diarrhea.� She was also found to be in afib with RVR.�
Norovirus
Nausea/Vomiting/Diarrhea
Severe sepsis 2/2 above
-s/p fluid resuscitation - fluids off 12/14
-lactate took a while to clear likely 2/2 liver disease --> now resolved
-advanced to LRD, patient tolerating.
-simethicone PRN
-VIRTUAL ASSISTANT lactulose held --> resume after goes 24 hours without loose stools
-PT/OT - eventual SNF
Hypokalemia
-replete
-replete Mag
UTI
Hx ESBL UTI
-on 12/16 patient complained of burning with urination, UA came back in evening with > 100 WBC.
-s/p fosfomycin x1 dose .No further abx per ID.
Atrial Fibrillation with Rapid Ventricular Rate
Paroxysmal Atrial Fibrillation
-required dilt gtt overnight of admission for afib with RVR to 140's
-HR better with resolution of sepsis
-continue VIRTUAL ASSISTANT Eliquis
-HR remains elevated at times. Med adjustment per cardiology Bisprolol increased to 10mg
History of Adrenal Insufficiency
Hypotension
-s/p course of stress dose steroids
-VIRTUAL ASSISTANT prednisone 5mg PO QD resumed morning 12/16 - BP stable
Heart Failure preserved EF
-resume VIRTUAL ASSISTANT Bumex 1mg PO QD (on 12/15)
Essential Hypertension
-resume 1/2 dose VIRTUAL ASSISTANT Losartan (12/16) and bisprolol increased to 10mg
Hypothyroidism
-VIRTUAL ASSISTANT Synthroid
Hyperlipidemia
-VIRTUAL ASSISTANT Statin
MAZARIEGOS Cirrhosis
-VIRTUAL ASSISTANT Rifaximin and lactulose
DVT PPx Eliquis
FULL CODE
PT/OT-SNF.
Updated daughter Ethel over the phone in details.
Anticipated Discharge: Within 24 hours
Subjective/Interval History
-
Date of Service: December 19, 2023
tolerating diet
remains in afib HR around 90-115s at times
Objective Data
-
Vital Signs:
Vital Signs
Temp Pulse Resp BP Pulse Ox
98.1 F 100 16 117/77 92
12/19/23 11:48 12/19/23 12:00 12/19/23 12:00 12/19/23 12:00 12/19/23 12:00
I&O
12/18/23 12/19/23 12/20/23
06:59 06:59 06:59
Intake Total 1310 / 1310 720 / 720 360 / 360
Output Total 2150 / 2150
Balance 1310 / 1310 -1430 / -1430 360 / 360
Data Reviewed
-
Total Time Spent with Patient (in minutes): 55
[2023-12-19] MEDS: MAGNESIUM OXIDE 500 MG PO (13:00)
[2023-12-19] MEDS: KCL 40 MEQ PO (13:00)
--- NOTE | 2023-12-19 14:23 | CM ---
Patient from [facility] with Dx Norovirus, Rapid A fib, PAF. Enhanced Precautions. Room air. PT & OT recommend skilled rehab.
Per Dr Bliss; patient may be ready for d/c tomorrow.
Spoke with Nelly, Ad[facility]; they are able to accept the patient once insurance approves. She had question as to whether patient was currently on CPAP- informed her patient is not on CPAP on this admission.
Spoke with Ethel, daughter; she agrees to [facility] and understands that will submit request to insurance for approval.
Spoke with [facility] ([phone]); requested SNF auth; she transferred me to dept handling senior living requests ), left message with request and asked for callback with reference #. Clinicals can be faxed to
[phone]--->sent via [employer] Fax.
Plan [facility] when medically ready and insurance approves.
--- NOTE | 2023-12-19 21:17 | PTCARENOTE ---
Report called to Nurse on . Pt to be transferred to room 326. Pt informed of transfer and pt's daughter also aware. Pt has no complaints presently. Monitor shows Atrial fibrillation at Ventricular rate of 115. BP 119/89.
[2023-12-20] VITALS (8 sets, daily range): BP systolic 117–159; BP diastolic 72–111; PULSE 86; O2SAT 90–95; BMI 34.1
[2023-12-20] MEDS: SYNTHROID 100 MCG PO (05:33)
[2023-12-20] MEDS: CYTOMEL 5 MICROGRAM PO (07:48)
[2023-12-20] MEDS: PROZAC 20 MG PO (07:48)
[2023-12-20] MEDS: DELTASONE 5 MG PO (07:49)
[2023-12-20] MEDS: FOLVITE 0.400000000000000022 MG PO (07:49)
[2023-12-20] MEDS: ELIQUIS 5 MG PO ×2 (07:49→20:28)
[2023-12-20] MEDS: VITAMIN D3 (cholecalciferol) 125 MCG PO (07:49)
[2023-12-20] MEDS: PROTONIX 40 MG PO (07:49)
[2023-12-20] MEDS: XIFAXAN 550 MG PO ×2 (07:49→20:28)
[2023-12-20] MEDS: ZEBETA 10 MG PO (08:06)
[2023-12-20] MEDS: COZAAR 50 MG PO (08:06)
[2023-12-20] MEDS: BUMEX 1 MG PO (08:07)
[2023-12-20 09:17] LABS: Blood Urea Nitrogen 10 mg/dl (7-17); Calcium 8.3 mg/dl (8.4-10.2); Carbon Dioxide 35 mmol/L (22-30); Chloride 98 mmol/L (98-107); Estimated Creatinine Clearance 69 ml/min; Glucose 77 mg/dl (70-99); Magnesium 1.7 mg/dl (1.6-2.3); Potassium 3.8 mmol/L (3.5-5.1); Sodium 134 mmol/L (135-145); eGFR > 60.00
--- NOTE | 2023-12-20 10:18 | W.PN.CARDCBS ---
Addendum entered and electronically signed by Micky Cheema MD 12/20/23 10:32:
I saw and examined the patient.
The Counselor Education Professor's note was reviewed and I agree with the note.
Comment:
GEN: No distress, awake, Ox3
HEENT: supple, anicteric, mmm
LUNGS: CTA, no wheezes/rales
CV: irreg, S1/S2, 1/6 syst LSB, no gallop
ABD: soft, BS+, NT/ND
EXT: No edema
NEURO: Gross non-focal
SKIN: No rash
plan:
Cont Bisoprolol 10mg daily
Vent rates remain a bit high. Will add Cardizem CD 120mg daily
Cont Eliquis
Cont Bumex 1mg po daily
Original Note:
Today's Communication / Plan
-
Start Cardizem CD 120 mg daily now
Cont higher dose bisoprolol 10 mg daily
Cont Eliquis
Weight stable and cont Bumex 1 mg PO daily
Impression / Plan
-
PCP Dr. Bender while at [facility]
Primary Gis Engineer: Dr. Caballero ([facility]), last seen 05/31/2023
Assessment:
Nausea, vomiting, diarrhea and + Norovirus 12/14/23
UTI, on ABX
Sepsis
Hypokalemia
Paroxysmal Afib w/ RVR
Chronic Eliquis OAC
h/o pituitary cyst s/p removal 2013
Chronic adrenal insufficiency on chronic steroids
Chronic HFpEF -NYHA class 3, ACC stage C
HTN
Hypothyroidism
Obstructive sleep apnea, variable compliance with CPAP
h/o statin intolerance
Lexiscan nuclear stress test 2021: small mild zied defect mid anterior wall that is fixed, defect did not meet quantitative criteria, normal global LV function
Echo 1/23/20: Definity study, EF 50-55%, trace MR, no TR: pending
Echo 10/2021: EF 65%, normal RV size and function
Plan:
-Norovirus symptoms have improved dramatically from admission.
-Patient with recurrence of known paroxysmal Afib on admission. Response was rapid initially and patient was on a Cardizem gtt, but then gtt weaned and outpatient dose of bisoprolol has been increased to 10 mg daily throughout this admission.
Patient with HRs averaging 100+ on my review of tele on 12/20/23. Talked with patient about adding Cardizem CD 120 mg daily and she is agreeable.
-Outpatient dose of Eliquis 5 mg BID (age 78, wt 87 kg and Cre 0.9) has been continued. There is no h/o thromboembolic event
-Dry weight at last d/c 12/03/23 was 189 lbs and patient weighs 186 lbs on 12/20/23. Cre stable at 0.7. Outpatient dose of Bumex 1 mg PO daily has been continued.
-Patient with follows with advanced HF specialist, Dr. Caballero, for chronic HFpEF. Records obtained and reviewed from Dr. Caballero's office earlier this admission.
-Potassium has been low at times and then responds to KCl. Patient was not taking KCl prior to admission. BMP at rehab in 1 week.
-Patient previously was ordered a PYP scan by Dr. Caballero, but did not complete because she was afraid of the result. Echo described as NOT having the appearance of infiltrative cardiomyopathy, but ECG low voltage. Ultimately patient not able to
complete test and no further work-up planned.
-Patient has been in a hospital or rehab since 09/2023. She is now going to a different rehab. Reviewed with patient that the goal is to settle into a routine at rehab so that she can regain her strength and then return home and patient indicates
this is her goal as well.
HPI: Patient was sent from [facility] to with N/V/D and is being admitted with sepsis, Noroviurs and Afib with RVR so cardiology has been consulted. Patient had a leg fracture that was treated at [facility] 09/2023. Patient was sent to [facility] for
rehab and then admitted to 10/2023 with UTI. Patient was seen by cardiology during a previous admission to in 2019, but otherwise sees her primary oracle pl sql developer Dr. Al Lewis at [facility]. Patient has a h/o pAfib and is chronically on Eliquis.
During her recent admission to for UTI last month she was in SR by ECG and tele strips. Patient was hypotensive on arrival to [facility] and Afib was rapid. Patient was given IVFs and Cardizem 10 mg IV x1 with improvement. Patient takes Eliquis 5 mg
BID and bisoprolol 5 mg daily as an outpatient.
Progress Note - Gis Engineer
Subjective
Date of Service: December 20, 2023
Denies palpitations
Objective
Labs:
12/16/23 04:06
12/20/23 08:25
Labs
Hgb 11.4 g/dL (12.0-16.0) L 12/16/23 04:06
Hct 35.7 % (37.0-47.0) L 12/16/23 04:06
Plt Count 146 10^3/uL (130-400) 12/16/23 04:06
Sodium 134 mmol/L (135-145) L 12/20/23 08:25
Potassium 3.8 mmol/L (3.5-5.1) 12/20/23 08:25
BUN 10 mg/dl (7-17) 12/20/23 08:25
Creatinine 0.7 mg/dL (0.6-1.0) 12/20/23 08:25
Glucose 77 mg/dl (70-99) 12/20/23 08:25
Vital Signs and I&O:
Vital Signs
Temp Pulse Resp BP Pulse Ox
97.4 F 117 16 159/111 98
12/20/23 07:50 12/20/23 08:07 12/20/23 07:50 12/20/23 08:07 12/20/23 07:50
Vital Signs
Temp Pulse Resp BP Pulse Ox
97.4 F 117 16 159/111 98
12/20/23 07:50 12/20/23 08:07 12/20/23 07:50 12/20/23 08:07 12/20/23 07:50
Intake & Output
12/18/23 12/19/23 12/20/23 12/21/23
06:59 06:59 06:59 06:59
Intake Total 1310 / 1310 720 / 720 890 / 890
Output Total 2150 / 2150 775 / 775
Balance 1310 / 1310 -1430 / -1430 115 / 115
Physical Exam
Physical Exam
GEN: NAD. AAO x3. Putting on makeup
HEENT: MMM
LUNGS: No audible wheeze
CV: Irreg irreg, Afib on tele
ABD: soft, BS+
EXT: No edema B/L LE
NEURO: Gross non-focal
SKIN: No rash
--- NOTE | 2023-12-20 11:11 | W.PN.HOSP.TC ---
Today's Communication/Plan
-
cardizem
monitor HR
PT/OT
monitor diet tolerance
Assessment / Plan
Assessment / Plan
Ms. Emily Miller is a 78 yo woman with hx paroxysmal atrial fibrillation, essential hypertension, hyperlipidemia, adrenal insufficiency, hypothyroidism, MAZARIEGOS cirrhosis, recent femoral fracture on 10/06 s/p surgery 10/07 ([address] Dr[address] Maria De Jesus Verduzco
orthopedic at [facility]), recent DH prolonged hospital course 11/12-12/03/23 for confusion, UTI, adrenal insufficiency, and SANTOSH, who presents to the ER with nausea/vomiting and diarrhea.� She was also found to be in afib with RVR.�
Norovirus
Nausea/Vomiting/Diarrhea
Severe sepsis 2/2 above
-s/p fluid resuscitation - fluids off 12/14
-lactate took a while to clear likely 2/2 liver disease --> now resolved
-advanced to LRD, patient tolerating.
-simethicone PRN
-PT/OT - eventual SNF
Hypokalemia
-replete
-replete Mag
UTI
Hx ESBL UTI
-on 12/16 patient complained of burning with urination, UA came back in evening with > 100 WBC.
-s/p fosfomycin x1 dose .No further abx per ID.
Atrial Fibrillation with Rapid Ventricular Rate
Paroxysmal Atrial Fibrillation
-required dilt gtt overnight of admission for afib with RVR to 140's
-continue SCALE BALANCER Eliquis
-HR remains elevated at times. Med adjustment per cardiology Bisprolol increased to 10mg and cardizem 120mg added.
History of Adrenal Insufficiency
Hypotension
-s/p course of stress dose steroids
-SCALE BALANCER prednisone 5mg PO QD resumed morning 12/16 - BP stable
Heart Failure preserved EF
-resume SCALE BALANCER Bumex 1mg PO QD (on 12/15)
Essential Hypertension
-resume 1/2 dose SCALE BALANCER Losartan (12/16) and bisprolol increased to 10mg.
Hypothyroidism
-SCALE BALANCER Synthroid
Hyperlipidemia
-SCALE BALANCER Statin
MAZARIEGOS Cirrhosis
-SCALE BALANCER Rifaximin and lactulose
DVT PPx Eliquis
FULL CODE
PT/OT-SNF pending imrpovement in HR.
Updated daughter Ethel over the phone in details on 12/19t.
Anticipated Discharge: Within 24 hours
Subjective/Interval History
-
Date of Service: December 20, 2023
remains in RVR
tolerating diet
1 bm today
Objective Data
-
Labs:
Laboratory Results
12/20/23
08:25
Sodium 134 L
Potassium 3.8
Chloride 98
Carbon Dioxide 35 H
BUN 10
Creatinine 0.7
Glucose 77
Calcium 8.3 L
Vital Signs:
Vital Signs
Temp Pulse Resp BP Pulse Ox
98 F 104 16 138/80 94
12/20/23 10:58 12/20/23 10:58 12/20/23 10:58 12/20/23 10:58 12/20/23 10:58
I&O
12/19/23 12/20/23 12/21/23
06:59 06:59 06:59
Intake Total 720 / 720 890 / 890
Output Total 2150 / 2150 775 / 775
Balance -1430 / -1430 115 / 115
Physical Exam
-
General: No Apparent Distress, Appears Chronically Ill and Obese
HEENT: Normocephalic, Atraumatic, Moist Mucous Membranes and Oxygen
Respiratory: Clear to Auscultation; Negative Wheezes
Cardiac: S1/S2, Irregular Rhythm and Tachycardic
GI: Soft, Nontender, Nondistended and Normal Bowel Sounds
Skin: Warm and Dry; Negative Rash
Neuro: Awake and No Motor Deficits
Psych: Calm
[2023-12-20] MEDS: CARDIZEM CD 120 MG PO (11:54)
--- NOTE | 2023-12-20 13:51 | CM ---
Addendum entered by Marion Vegas 12/20/23 15:48:
Spoke with Maame in admissions - give auth # and information for next review
Aware pt to be transferred tomorrow
Given phone number for report
[facility] when medically ready
Original Note:
Received auth from [facility]
Spoke with Elvie Simon
Auth# - [id number]
approved 12/19-12/26 skilled level 2
next review 12/25 P - [phone]
Fax - [phone] Bliss - pt not ready
Called Nelly at the [facility] [phone]
LM with call back # - asking her to return call
[facility] when medically stable
--- NOTE | 2023-12-20 16:18 | W.PN.ID1 ---
Date of Service
Date of Service: December 20, 2023
Today's Communication
- urine culture was polymicrobial, if there is relapse of symptoms in the future could repeat ua and culture at that time
- completed single dose of fosfomycin which is a full course
- follow up with PCP
ID service will no longer actively follow this patient please recall for further questions
Assessment / Plan
UTI
Colonization with ESBL klebsiella
Norovirus - resolved
Reported allergies to penicillin - hives, and meropenem 'tremors
- urine culture was polymicrobial, if there is relapse of symptoms in the future could repeat ua and culture at that time
- completed single dose of fosfomycin which is a full course
- follow up with PCP
ID service will no longer actively follow this patient please recall for further questions
Chief Complaint
-: UTI
Subjective / Review of Systems
afebrile
bp stable
no further dysuria or suprapubic tenderness
no new complaints
without leukocytosis, cr stable, urine culture was polymicrobial
Vital Signs / Physical Exam
Vital Signs
Vital Signs
Temp Pulse Resp BP Pulse Ox
98.3 F 54 20 125/72 95
12/20/23 15:00 12/20/23 15:00 12/20/23 15:00 12/20/23 15:00 12/20/23 15:00
Physical Exam
Constitutional: No Acute Distress
Cardiovascular: Regular Rate and S1/S2; Negative Murmur or Rub
Pulmonary: Clear and Symmetric; Negative Wheezes or Rales
Gastrointestinal: Soft, Non Tender, Non Distended and Normal Bowel Sounds
Genito-Urinary: Negative Suprapubic Tenderness
Skin: Warm and Dry; Negative Rash or Jaundice
Objective Data
Lab Data
Lab Results
12/16/23 04:06
12/20/23 08:25
Estimated Creat Clear 69 ml/min 12/20/23 08:25
Lactic Acid 2.0 mmol/L (0.7-2.0) 12/16/23 04:06
Total Bilirubin 1.2 mg/dl (0.2-1.3) 12/15/23 08:12
AST 47 U/L (14-36) H 12/15/23 08:12
ALT 22 U/L (0-35) 12/15/23 08:12
Alkaline Phosphatase 121 U/L (38-126) 12/15/23 08:12
Most recent labs reviewed.
Micro Results:
12/17/23 21:08 Urine Culture - Final
Urine
12/14/23 08:16 Blood Culture - Final
Blood/Venous No Growth - Final Report
12/14/23 10:20 Blood Culture - Final
Blood/Venous No Growth - Final Report
12/14/23 08:58 Salmonella/Shigella Culture - Final
Feces/Stool No Salmonella, Shigella, Aeromonas or Plesiomonas species
isolated.
Campylobacter Culture - Final
No Campylobacter species isolated.
Shiga Toxin Test - Final
No E. coli Shiga Toxin 1 or 2 detected.
12/14/23 08:58 C. difficile GDH Antigen & Toxins - Final
Feces/Stool Negative for toxigenic C.difficile
- Final
Positive for Norovirus GII
--- NOTE | 2023-12-20 16:38 | W.PN.UPDATE ---
Update Note
Progress Note Update
Talked with patient's daughter, Ethel, by phone for almost 13 minutes. Reviewed admission thus far and also series of admissions to [facility], [facility], , [facility], back to and plan for third rehab at [facility]. Patient with recurrence of
Afib on admission in the setting of Norovirus. Remains in Afib. Bisoprolol dose increased to 10 mg daily this admission and Cardizem CD added today. Patient's daughter feels patient will have a better chance at successful rehab if in SR. Will
attempt MARIA LUISA/CV in AM. Explained risks vs benefits of MARIA LUISA/CV and described procedure. Also reviewed likeliness of recurrence of Afib in the setting of obesity and EDELMIRA. Patient's primary fire alarm installer is Dr. Bill Caballero.
[2023-12-21 03:10] VITALS: BP 152/93
--- NOTE | 2023-12-21 03:28 | DOWNTIME ---
There was a [employer] Client Grinder [employer]ining Downtime on 12/21/2023 from 0100 to 12/21/2023 at 0322. Downtime documentation of patient's care, including medication administrations, has been reconciled in the electronic record per guidelines. Refer to the
patient's paper chart under the miscellaneous tab to see printed paper medication records and downtime forms.
[2023-12-21] MEDS: SYNTHROID 100 MCG PO (04:52)
[2023-12-21 06:00] VITALS: BMI 34.5
[2023-12-21 06:53] LABS: Blood Urea Nitrogen 12 mg/dl (7-17); Calcium 8.7 mg/dl (8.4-10.2); Carbon Dioxide 35 mmol/L (22-30); Chloride 96 mmol/L (98-107); Estimated Creatinine Clearance 69 ml/min; Glucose 99 mg/dl (70-99); Potassium 3.6 mmol/L (3.5-5.1); Sodium 134 mmol/L (135-145); eGFR > 60.00
[2023-12-21 07:30] VITALS: BP 140/85
[2023-12-21] MEDS: CYTOMEL 5 MICROGRAM PO (08:17)
[2023-12-21] MEDS: CARDIZEM CD 120 MG PO (08:17)
[2023-12-21] MEDS: ELIQUIS 5 MG PO (08:17)
[2023-12-21] MEDS: XIFAXAN 550 MG PO (08:17)
[2023-12-21] MEDS: BUMEX 1 MG PO (08:17)
[2023-12-21] MEDS: FOLVITE 0.400000000000000022 MG PO (08:17)
[2023-12-21] MEDS: PROZAC 20 MG PO (08:18)
[2023-12-21] MEDS: ZEBETA 10 MG PO (08:18)
[2023-12-21] MEDS: PROTONIX 40 MG PO (08:18)
[2023-12-21] MEDS: COZAAR 50 MG PO (08:18)
[2023-12-21] MEDS: DELTASONE 5 MG PO (08:18)
[2023-12-21] MEDS: VITAMIN D3 (cholecalciferol) 125 MCG PO (08:18)
[2023-12-21] MEDS: MAGNESIUM OXIDE 500 MG PO (08:19)
[2023-12-21] MEDS: KCL 20 MEQ PO (08:20)
--- NOTE | 2023-12-21 10:15 | W.PN.HOSP.TC ---
Addendum entered and electronically signed by Souleymane Bliss MD 12/21/23 14:17:
Discussed with cardiology. Patient heart rate stabilized and no further plan for inpatient MARIA LUISA/cardioversion. Per cardiology patient can be discharged. Discussed this with patient patient's spouse. Both agreeable. Case management informed. DC
to SNF.
More than 30 minutes spent in discharge including
Final examination of the patient
Summarizing hospital stay
Instructions for continuing care to all relevant caregivers
Preparation of discharge records, prescriptions, and referral forms
Total time spent (in minutes): 45
Original Note:
Today's Communication/Plan
-
MARIA LUISA/CV in am
lactulose
replete kcl/mag
Assessment / Plan
Assessment / Plan
Ms. Emily Miller is a 78 yo woman with hx paroxysmal atrial fibrillation, essential hypertension, hyperlipidemia, adrenal insufficiency, hypothyroidism, MAZARIEGOS cirrhosis, recent femoral fracture on 10/06 s/p surgery 10/07 ([address] Dr[address] Maria De Jesus Verduzco
orthopedic at [facility]), recent DH prolonged hospital course 11/12-12/03/23 for confusion, UTI, adrenal insufficiency, and SANTOSH, who presents to the ER with nausea/vomiting and diarrhea.� She was also found to be in afib with RVR.�
Norovirus
Nausea/Vomiting/Diarrhea
Severe sepsis 2/2 above
-s/p fluid resuscitation - fluids off 12/14
-lactate took a while to clear likely 2/2 liver disease --> now resolved
-advanced to LRD, patient tolerating.
-simethicone PRN
-PT/OT - eventual SNF
Hypokalemia/Hypomag
-replete and monitor
UTI
Hx ESBL UTI
-on 12/16 patient complained of burning with urination, UA came back in evening with > 100 WBC.
-s/p fosfomycin x1 dose .No further abx per ID.
Atrial Fibrillation with Rapid Ventricular Rate
Paroxysmal Atrial Fibrillation
-required dilt gtt overnight of admission for afib with RVR to 140's
-continue CIRCULATING PROCESS INSPECTOR Eliquis
-HR remains elevated at times. Med adjustment per cardiology Bisprolol increased to 10mg and cardizem 120mg added.
-Plan for MARIA LUISA/CV in am
History of Adrenal Insufficiency
Hypotension
-s/p course of stress dose steroids
-CIRCULATING PROCESS INSPECTOR prednisone 5mg PO QD resumed morning 12/16 - BP stable
Heart Failure preserved EF
-resume CIRCULATING PROCESS INSPECTOR Bumex 1mg PO QD (on 12/15)
Essential Hypertension
-resume 1/2 dose CIRCULATING PROCESS INSPECTOR Losartan (12/16) and bisprolol increased to 10mg.
Hypothyroidism
-CIRCULATING PROCESS INSPECTOR Synthroid
Hyperlipidemia
-CIRCULATING PROCESS INSPECTOR Statin
MAZARIEGOS Cirrhosis
-CIRCULATING PROCESS INSPECTOR Rifaximin and lactulose/ Pt refusing lactulose. Counseled multiple time to be compliant with meds. Not confused.
DVT PPx Eliquis
FULL CODE
PT/OT-eventaul SNF.
Anticipated Discharge: Within 24 hours
Subjective/Interval History
-
Date of Service: December 21, 2023
states had 3bm last 24h-formed.
remains in afib
Objective Data
-
Labs:
Laboratory Results
12/21/23
05:58
Sodium 134 L
Potassium 3.6
Chloride 96 L
Carbon Dioxide 35 H
BUN 12
Creatinine 0.7
Glucose 99
Calcium 8.7
Vital Signs:
Vital Signs
Temp Pulse Resp BP Pulse Ox
98.1 F 95 16 140/85 98
12/21/23 07:30 12/21/23 08:18 12/21/23 07:30 12/21/23 08:18 12/21/23 07:30
I&O
03/26/24 03/27/24 03/28/24
06:59 06:59 06:59
Intake Total 890 / 890 1080 / 1080 720 / 720
Output Total 775 / 775 275 / 275 200 / 200
Balance 115 / 115 805 / 805 520 / 520
Physical Exam
-
General: No Apparent Distress, Appears Chronically Ill and Obese
HEENT: Normocephalic, Atraumatic, Moist Mucous Membranes and Oxygen
Respiratory: Clear to Auscultation; Negative Wheezes
Cardiac: S1/S2, Irregular Rhythm and Tachycardic
GI: Soft, Nontender, Nondistended and Normal Bowel Sounds
Skin: Warm and Dry; Negative Rash
Neuro: Awake, No Motor Deficits and Nonfocal/Grossly Intact
Psych: Calm
--- NOTE | 2023-12-21 10:44 | CM ---
Addendum entered by Marion Vegas 12/21/23 14:21:
Received message from Dr Bliss - pt can be d/c'ed - planned procedure to be done as outpatient
[facility] can accept - spoke with Nelly in admissions
Transport at 4:15PM
Facility made aware
Plan - transfer to [facility]
R - [phone]
Fax - [phone]
Original Note:
Received message from Dr Bliss - pt not ready for d/c today
Called and spoke to Delphine in admissions at the [facility] - aware pt not for d/c today
CM will let facility know when pt is ready
Pt for MARIA LUISA/cardioversion before d/c
Plan - [facility] snf when medically stable
[2023-12-21 11:30] VITALS: BP 115/68
--- NOTE | 2023-12-21 12:59 | W.PN.CARDCBS ---
Today's Communication / Plan
-
Discussed with patient and daughter and will defer decision on cardioversion to outpatient
Stable cardiology status for discharge
Will sign off
Impression / Plan
-
PCP Dr. Bender while at [facility]
Primary Web Operations Specialist: Dr. Caballero ([facility]), last seen 05/31/2023
Assessment:
Nausea, vomiting, diarrhea and + Norovirus 12/14/23
UTI, on ABX
Sepsis
Hypokalemia
Paroxysmal Afib w/ RVR
Chronic Eliquis OAC
h/o pituitary cyst s/p removal 2013
Chronic adrenal insufficiency on chronic steroids
Chronic HFpEF -NYHA class 3, ACC stage C
HTN
Hypothyroidism
Obstructive sleep apnea, variable compliance with CPAP
h/o statin intolerance
Lexiscan nuclear stress test 2021: small mild zied defect mid anterior wall that is fixed, defect did not meet quantitative criteria, normal global LV function
Echo 10/18/19: Definity study, EF 50-55%, trace MR, no TR:
Echo 10/2021: EF 65%, normal RV size and function
Plan:
Heart rate control is reasonable in atrial fibrillation
Continue Cardizem
Outpatient dose of Eliquis 5 mg BID (age 78, wt 87 kg and Cre 0.9) has been continued. There is no h/o thromboembolic event
Discussed in detail with patient and daughter
They agree that decision for cardioversion can be done as an outpatient
Reluctant to do MARIA LUISA with recent norovirus
Patient remains hemodynamically stable
Patient with follows with advanced HF specialist, Dr. Caballero, for chronic HFpEF. Records obtained and reviewed from Dr. Caballero's office earlier this admission.
Texted Dr. Caballero to update
Stable volume status on oral Bumex
Patient previously was ordered a PYP scan by Dr. Caballero, but did not complete because she was afraid of the result. Echo described as NOT having the appearance of infiltrative cardiomyopathy, but ECG low voltage. Ultimately patient not able to
complete test and no further work-up planned.
Patient has been in a hospital or rehab since 09/2023. She is now going to a different rehab.
Will sign off, call with questions
She can follow-up with cardiology at [place]
HPI: Patient was sent from [facility] to with N/V/D and is being admitted with sepsis, Noroviurs and Afib with RVR so cardiology has been consulted. Patient had a leg fracture that was treated at [facility] 09/2023. Patient was sent to [facility] for
rehab and then admitted to 10/2023 with UTI. Patient was seen by cardiology during a previous admission to in 2019, but otherwise sees her primary client relationship consultant Dr. Al Lewis at [facility]. Patient has a h/o pAfib and is chronically on Eliquis.
During her recent admission to for UTI last month she was in SR by ECG and tele strips. Patient was hypotensive on arrival to [facility] and Afib was rapid. Patient was given IVFs and Cardizem 10 mg IV x1 with improvement. Patient takes Eliquis 5 mg
BID and bisoprolol 5 mg daily as an outpatient.
Progress Note - Web Operations Specialist
Subjective
Date of Service: December 21, 2023
No complaints
Objective
Labs:
12/16/23 04:06
12/21/23 05:58
Labs
Hgb 11.4 g/dL (12.0-16.0) L 12/16/23 04:06
Hct 35.7 % (37.0-47.0) L 12/16/23 04:06
Plt Count 146 10^3/uL (130-400) 12/16/23 04:06
Sodium 134 mmol/L (135-145) L 12/21/23 05:58
Potassium 3.6 mmol/L (3.5-5.1) 12/21/23 05:58
BUN 12 mg/dl (7-17) 12/21/23 05:58
Creatinine 0.7 mg/dL (0.6-1.0) 12/21/23 05:58
Glucose 99 mg/dl (70-99) 12/21/23 05:58
Vital Signs and I&O:
Vital Signs
Temp Pulse Resp BP Pulse Ox
98.0 F 90 16 115/68 98
12/21/23 11:30 12/21/23 11:30 12/21/23 11:30 12/21/23 11:30 12/21/23 11:30
Vital Signs
Temp Pulse Resp BP Pulse Ox
98.0 F 90 16 115/68 98
12/21/23 11:30 12/21/23 11:30 12/21/23 11:30 12/21/23 11:30 12/21/23 11:30
Intake & Output
12/19/23 12/20/23 12/21/23 12/22/23
06:59 06:59 06:59 06:59
Intake Total 720 / 720 890 / 890 1080 / 1080 720 / 720
Output Total 2150 / 2150 775 / 775 275 / 275 200 / 200
Balance -1430 / -1430 115 / 115 805 / 805 520 / 520
Physical Exam
Physical Exam
General: Well developed, well nourished in NAD.
Neck: Supple, no JVD, HJR, carotids +2 B/L, no bruits bilaterally.
Heart: Non displaced PMI, irregular, no murmurs, No S3, S4, no rubs.
Lungs: Scattered rhonchi
Extremities: No clubbing, cyanosis or edema bilaterally.
Neuro: Grossly nonfocal, awake, alert and oriented x3.
--- NOTE | 2023-12-21 13:21 | W.DCSUMMARY ---
Discharge Summary
Discharge Data
Date of Admission: 12/14/23
Date of Discharge: 12/21/23
-
Pending Results: No
Hospital Course
78 yo woman with hx paroxysmal atrial fibrillation, essential hypertension, hyperlipidemia, adrenal insufficiency, hypothyroidism, MAZARIEGOS cirrhosis, recent femoral fracture on 10/06 s/p surgery 10/07 (by Dr. Maria De Jesus Logan [facility] at [facility]), recent DH prolonged hospital course 11/12-12/03/23 for confusion, UTI, adrenal insufficiency, and SANTOSH, who presents to the ER with nausea/vomiting and diarrhea.� Stress dose steroids were started and eventually weaned transition to home dose
of 5 mg p.o. prednisone. She was also found to be in afib with RVR.� Patient was on Cardizem drip which was eventually weaned off. Bisoprolol dose was increased to 10 mg. Losartan dose was decreased to 50 mg. Patient with mild tachycardia and
Cardizem was added. Heart rate improved. Per cardiology plan for outpatient cardioversion. Patient was also found to have an norovirus. Received IV fluid resuscitation and diet was eventually advanced. Patient diarrhea resolved. Patient with
electrolyte abnormality which was repleted. Also concern for urinary tract infection and received fosfomycin per ID. Patient was eval by physical and Occupational Therapy. Patient be discharged back to previous living situation with plan for
outpatient primary cardiology follow-up for cardioversion.
Discharge Plan
-
Patient Disposition: Snf/SNF
Discharge Diagnosis/Procedures: Nausea and vomiting and diarrhea secondary to norovirus
Severe sepsis
Urinary Tract infection
Hypokalemia
Hypomagnesemia
Atrial fibrillation with rapid ventricular response
Condition: Fair
Diet: 2 Gram Sodium
Activity: With assistance and As tolerated
Other Services: PT and OT
Referrals:
Robert Bender DO [Family Provider] - in less than 1 week
Bill Caballero Jr., MD [Non-Admitting Privileges] - in one to two months
Additional Discharge Medication Instructions: Bisoprolol dose was increased to 10 mg from 5 mg prior to arrival
Losartan dose was decreased to 50 mg daily from 100 mg prior to arrival
Prescriptions:
New
losartan 50 mg Tablet
50 mg PO DAILY 30 Days Qty: 30 0RF
bisoprolol fumarate 10 mg Tablet
10 mg PO DAILY 30 Days Qty: 30 0RF
diltiazem HCl 120 mg Capsule,Extended Release 24hr
120 mg PO DAILY 30 Days Qty: 30 0RF
Continued
liothyronine 5 MCG tablet
5 mcg PO DAILY
levothyroxine 100 MCG tablet
100 mcg PO DAILY@0600
Xifaxan 550 MG tablet
550 mg PO BID
Eliquis 5 MG tablet
5 mg PO BID
cyanocobalamin (vitamin B-12) 1,000 mcg Tablet
1,000 mcg PO DAILY
pantoprazole 40 mg Tablet,Delayed Release (Dr/Ec)
40 mg PO DAILY
bumetanide 1 mg Tablet
1 mg PO DAILY
simethicone 80 mg Tablet,Chewable
160 mg PO QID
cholecalciferol (vitamin D3) 125 mcg (5,000 unit) Tablet
125 mcg PO DAILY
Cepacol Sore Throat (anjali-men) 15-3.6 mg Lozenge
1 ruth MUCOUS MEMBRANE Q2H PRN (Reason: sore throat)
lactulose 20 gram/30 mL Solution
20 g PO BID
multivitamin Tablet
1 tab PO DAILY
acetaminophen [Tylenol] 325 mg Tablet
650 mg PO Q6H PRN (Reason: mild pain)
acetaminophen [Tylenol] 325 mg Tablet
650 mg PO BID
folic acid 400 mcg Tablet
0.4 mg PO DAILY
Rx Instructions:
12/14/2023, start date: 12/07/2023; end date: 01/06/2024.
calcium carbonate 500 mg calcium (1,250 mg) Tablet
1,000 mg PO TID
fluoxetine 20 mg Tablet
20 mg PO DAILY
prednisone 5 mg tablet
5 mg PO DAILY
Rx Instructions:
12/14/2023, start date: 12/04/2023; end date: 01/03/2024.
Discontinued
ondansetron HCl 4 MG tablet
4 mg PO Q8HPRN PRN (Reason: nausea)
magnesium hydroxide [Milk of Magnesia] 400 mg/5 mL Suspension
30 ml PO DAILY PRN (Reason: if no BM on day 4)
bisacodyl [Dulcolax (bisacodyl)] 10 mg Suppository
10 mg NC [id number] PRN (Reason: constipation)
losartan 100 mg Tablet
100 mg PO DAILY
bisoprolol fumarate 5 MG tablet
5 mg PO DAILY
Fleet Enema 19-7 gram/118 mL Enema
118 ml NC DAILYPRN PRN (Reason: constipation)
Discharge Orders:
Discharge Patient (As Directed); Ordered 12/21/23
Ordered By: Souleymane Bliss
Discharge Date and Time
Print Language: ESTONIAN
[2023-12-21 15:30] VITALS: BP 120/78
== END 2023-12-21 17:25 | DRG 872 ==
LOC: 3 WEST ACU 14:46
PROVIDERS: ADMITTING PHYSICIAN Student in an Organized Health Care Education/Training Program; ATTENDING PHYSICIAN Hospitalist; CONSULT PHYSICIAN Internal Medicine Cardiovascular Disease; CONSULT PHYSICIAN Student in an Organized Health Care Education/Training Program; EMERGENCY PHYSICIAN Emergency Medicine; FAMILY PHYSICIAN Internal Medicine
DX: A41.9 Sepsis, unspecified organism (principal); N39.0 Urinary tract infection, site not specified; I50.32 Chronic diastolic (congestive) heart failure; E27.40 Unspecified adrenocortical insufficiency; A08.11 Acute gastroenteropathy due to Norwalk agent; Z79.01 Long term (current) use of anticoagulants; R65.20 Severe sepsis without septic shock; I48.0 Paroxysmal atrial fibrillation; I95.9 Hypotension, unspecified; I11.0 Hypertensive heart disease with heart failure; E03.9 Hypothyroidism, unspecified; E78.00 Pure hypercholesterolemia, unspecified; K75.81 Nonalcoholic steatohepatitis (NASH); K74.60 Unspecified cirrhosis of liver; E87.6 Hypokalemia; Z88.1 Allergy status to other antibiotic agents; E83.42 Hypomagnesemia
CPT/HCPCS: 51701; 74177; 80048; 80053; 81003; 81015; 83605; 83690; 83735; 85025; 85027; 87040; 87045; 87046; 87086; 87324; 87427; 87449; 87798; 93005; 96361; 96374; 96375; 96376; 97110; 97163; 97167; 97530; 97535; 99291; Q9967

== ENCOUNTER 2024-02-29 06:42 | Inpatient (IN) | payer OTHER, SELFPAY ==
[2024-02-28 19:30] VITALS: BP 138/109
[2024-02-28 19:58] LABS: % Basophils 0.4 % (0-2); % Immature Granulocytes 1.5 % (0-0.5); % Lymphocytes 11.4 % (20.5-51.1); % Monocytes 9.7 % (1.7-9.3); Absolute Basophils 0.1 10^3/uL (0-0.2); Absolute Eosinophils 0.1 10^3/uL (0-0.7); Absolute Immature Granulocytes 0.2 10^3/uL (0-0.05); Absolute Lymphocytes 1.4 10^3/uL (1.2-3.4); Absolute Monocytes 1.2 10^3/uL (0.1-0.6); Absolute Neutrophils 9.1 10^3/uL (1.4-6.5); Hematocrit 39.2 % (37.0-47.0); Hemoglobin 13.6 g/dL (12.0-16.0); Mean Corp Hgb Conc. 34.7 g/dL (33.0-37.0); Mean Corpuscular Hgb 29.9 pg (27.0-31.0); Mean Corpuscular Volume 86.2 fL (81.0-99.0); Mean Platelet Volume 10.1 fL (7.4-10.4); Nucleated Red Blood Cells % 0 %; Platelet Count 170 10^3/uL (130-400); Red Blood Cell Count 4.55 10^6/uL (4.20-5.40); Red Cell Dist. Width 16.9 % (11.5-14.5)
[2024-02-28 20:15] LABS: ALT (SGPT) 26 U/L (0-35); AST (SGOT) 45 U/L (14-36); Albumin 3.2 g/dl (3.5-5.0); Alkaline Phosphatase 146 U/L (38-126); Blood Urea Nitrogen 59 mg/dl (7-17); Calcium 9.6 mg/dl (8.4-10.2); Carbon Dioxide 25 mmol/L (22-30); Chloride 103 mmol/L (98-107); Glucose 111 mg/dl (70-99); Sodium 137 mmol/L (135-145); Total Protein 6.3 g/dl (6.3-8.2); eGFR 28.84
[2024-02-28 20:20] LABS: Troponin I < 0.012 ng/ml
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
[2024-02-28] MEDS: MORPHINE SULFATE 4 MG IV (22:36)
[2024-02-28] MEDS: NSS 1000 IV (22:37)
[2024-02-29] VITALS (13 sets, daily range): BP systolic 85–119; BP diastolic 39–86; O2SAT 94; BMI 39.3
[2024-02-29 00:47] LABS: Blood Urea Nitrogen 58 mg/dl (7-17); Calcium 8.8 mg/dl (8.4-10.2); Carbon Dioxide 26 mmol/L (22-30); Chloride 107 mmol/L (98-107); Glucose 108 mg/dl (70-99); Sodium 138 mmol/L (135-145); eGFR 33.22
[2024-02-29] MEDS: NSS 1000 IV ×2 (03:00→09:01)
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
[2024-02-29] MEDS: MORPHINE SULFATE 2 MG IV (06:45)
[2024-02-29 07:26] LABS: Urine Albumin Negative (Neg - Trace); Urine Bilirubin Negative (Negative); Urine Character Clear (Clear); Urine Color Yellow; Urine Glucose Negative (Negative); Urine Ketone Negative (Negative); Urine Leukocyte 1+ (Negative); Urine Nitrite Negative (Negative); Urine Occult Blood Negative (Negative); Urine Specific Gravity 1.015 (<1.030); Urine Urobilinogen Negative (Neg - 1+)
[2024-02-29 07:36] LABS: Urine Bacteria Few (Negative); Urine White Cell 16-20 /HPF (0-5)
[2024-02-29 08:12] LABS: TSH Reflex To Free T4 < 0.02 uIU/ml (0.47-4.68)
[2024-02-29 08:42] LABS: Free T4 1.36 ng/dl (0.78-2.19)
--- NOTE | 2024-02-29 09:00 | PHANOTE ---
med rec jethro-called spouse(number on file) for medications, left message and waiting for a response.
[2024-02-29] MEDS: TYLENOL 650 MG PO ×3 (09:09→23:37)
[2024-02-29] MEDS: CYTOMEL 5 MICROGRAM PO (09:10)
[2024-02-29] MEDS: PROZAC 20 MG PO (09:10)
[2024-02-29] MEDS: ZEBETA 10 MG PO (09:11)
[2024-02-29] MEDS: FOLVITE 0.400000000000000022 MG PO (09:11)
[2024-02-29] MEDS: DELTASONE 5 MG PO (09:11)
[2024-02-29] MEDS: CARDIZEM CD 120 MG PO ×2 (09:12→20:39)
[2024-02-29] MEDS: XIFAXAN 550 MG PO ×2 (09:12→20:39)
[2024-02-29] MEDS: NSS IV ×3 (09:30→11:11)
[2024-02-29] MEDS: ELIQUIS 5 MG PO ×2 (09:43→20:39)
--- NOTE | 2024-02-29 11:58 | CARDSERVLU ---
Echocardiogram with Lumason completed after protocol screening completed. Allergies verified.
Patent IV site: _existing site 20P RAC____
IV site flushed with 0.9% NaCl pre and post administration.
Diluted bolus method utilized to enhance visualization of ventricular peng.
Total volume given: __3.5__ mL
Patient tolerated all procedures well without complications.
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
--- NOTE | 2024-02-29 17:38 | ED TECH ---
PCT instructed by ED RN Sarah that pt was to be pulled over from stretcher to bed, upon arrival to the floor, Floor RN stated that the pt could walk from stretcher in hallway to pt bed.
--- NOTE | 2024-02-29 19:37 | PTCARENOTE ---
Received patient at 1740 from ED. Patient ambulated from stretcher to chair with walker and supervision x2. Patient sitting in chair, c/o chest discomfort-Tylenol given. Call mccall in reach. Family at bedside.
[2024-03-01 03:49] VITALS: BP 134/65
[2024-03-01] MEDS: SYNTHROID 100 MCG PO (05:33)
[2024-03-01 06:00] VITALS: BMI 38.3
[2024-03-01 07:00] VITALS: BP 144/77
[2024-03-01 09:05] VITALS: PULSE 84; O2SAT 98
[2024-03-01] MEDS: CARDIZEM CD 120 MG PO (09:18)
[2024-03-01] MEDS: CYTOMEL 5 MICROGRAM PO (09:18)
[2024-03-01] MEDS: OSCAL CAL 500 500 MG PO (09:18)
[2024-03-01] MEDS: PROZAC 20 MG PO (09:18)
[2024-03-01] MEDS: XIFAXAN 550 MG PO (09:19)
[2024-03-01] MEDS: ELIQUIS 5 MG PO (09:19)
[2024-03-01] MEDS: TYLENOL 650 MG PO (09:19)
[2024-03-01] MEDS: ZEBETA 10 MG PO (09:19)
[2024-03-01] MEDS: FOLVITE 0.400000000000000022 MG PO (09:19)
[2024-03-01] MEDS: DELTASONE 5 MG PO (09:19)
[2024-03-01 11:00] VITALS: BP 152/79
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
[2024-03-01 12:00] LABS: Hematocrit 38.6 % (37.0-47.0); Hemoglobin 12.6 g/dL (12.0-16.0); Mean Corp Hgb Conc. 32.6 g/dL (33.0-37.0); Mean Corpuscular Hgb 29.9 pg (27.0-31.0); Mean Corpuscular Volume 91.5 fL (81.0-99.0); Platelet Count 143 10^3/uL (130-400); Red Blood Cell Count 4.22 10^6/uL (4.20-5.40); Red Cell Dist. Width 16.4 % (11.5-14.5); White Blood Cell Count 9.4 10^3/uL (4.8-10.8)
[2024-03-01 12:28] LABS: ALT (SGPT) 21 U/L (0-35); AST (SGOT) 33 U/L (14-36); Albumin 2.8 g/dl (3.5-5.0); Alkaline Phosphatase 99 U/L (38-126); Blood Urea Nitrogen 42 mg/dl (7-17); Carbon Dioxide 23 mmol/L (22-30); Chloride 109 mmol/L (98-107); Direct Bilirubin 0.3 mg/dl (0.0-0.4); Estimated Creatinine Clearance 43 ml/min; Glucose 127 mg/dl (70-99); Potassium 4.6 mmol/L (3.5-5.1); Sodium 139 mmol/L (135-145); Total Protein 5.8 g/dl (6.3-8.2); eGFR 52.08
[2024-03-01] MEDS: ULTRAM 50 MG PO (13:10)
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
--- NOTE | 2024-03-01 14:43 | CM ---
Addendum entered by Marion Vegas 03/01/24 16:36:
Declined by [facility] as currently has outpatient services
Plan - home with family assist and outpatient services
Addendum entered by Marion Vegas 03/01/24 16:12:
Declined by [facility]
Addendum entered by Marion Vegas 03/01/24 15:27:
[facility] declined
Referral sent to [facility]
Original Note:
Met with pt at bedside
Pt lives with her in a split level home
Has chair lift to go to 2nd level
Needs assist with adl's, baseline ambulates with RW - assists at home, does shopping, cooking
DME - rolling walker, wheel chair, chair lift,cane, oxygen
SNF - past [place], [place]
HH - has had in past - unsure of company
PCP - Dr Charmaine Damian
Pharm - [facility]
Has ride at d/c
PT/OT - recommending SNF vs HH
Discussed with pt - refusing SNF
Spoke with daughter Ethel
Pt has outpatient PT arranged will not need PT/OT
Will send referral to [facility] for RN
Plan Home with [facility] costello
[2024-03-01 15:00] VITALS: BP 140/66
== END 2024-03-01 17:27 | disposition home or self-care (01) | DRG 605 ==
LOC: 3 WEST ACU 06:42
PROVIDERS: Student in an Organized Health Care Education/Training Program; ADMITTING PHYSICIAN Hospitalist; ATTENDING PHYSICIAN Hospitalist; EMERGENCY PHYSICIAN Student in an Organized Health Care Education/Training Program; FAMILY PHYSICIAN Nurse Practitioner
DX: S20.219A Contusion of unspecified front wall of thorax, initial encounter (principal); N17.9 Acute kidney failure, unspecified; E27.40 Unspecified adrenocortical insufficiency; E66.01 Morbid (severe) obesity due to excess calories; Z68.38 Body mass index [BMI] 38.0-38.9, adult; D72.829 Elevated white blood cell count, unspecified; V89.2XXA Person injured in unspecified motor-vehicle accident, traffic, initial encounter; Y92.410 Unspecified street and highway as the place of occurrence of the external cause; R09.02 Hypoxemia; R06.89 Other abnormalities of breathing; E03.9 Hypothyroidism, unspecified
CPT/HCPCS: 71046; 71120; 76775; 80048; 80053; 81003; 81015; 82248; 83735; 84439; 84443; 84484; 85025; 85027; 87086; 93005; 93306; 97163; Q9950

== ENCOUNTER 2024-05-01 21:07 | Inpatient (IN) | payer OTHER, SELFPAY ==
[2024-05-01] VITALS (8 sets, daily range): BP systolic 95–128; BP diastolic 45–80; BMI 35.0
[2024-05-01 18:09] LABS: % Basophils 0.7 % (0-2); % Immature Granulocytes 1.4 % (0-0.5); % Lymphocytes 8.3 % (20.5-51.1); % Monocytes 6.3 % (1.7-9.3); % Neutrophils 80.3 % (42.2-75.2); Absolute Basophils 0.1 10^3/uL (0-0.2); Absolute Eosinophils 0.3 10^3/uL (0-0.7); Absolute Immature Granulocytes 0.2 10^3/uL (0-0.05); Absolute Lymphocytes 0.9 10^3/uL (1.2-3.4); Absolute Monocytes 0.7 10^3/uL (0.1-0.6); Hematocrit 41.4 % (37.0-47.0); Hemoglobin 13.6 g/dL (12.0-16.0); Mean Corp Hgb Conc. 32.9 g/dL (33.0-37.0); Mean Corpuscular Hgb 30.7 pg (27.0-31.0); Mean Corpuscular Volume 93.5 fL (81.0-99.0); Mean Platelet Volume 11.2 fL (7.4-10.4); Nucleated Red Blood Cells % 0 %; Platelet Count 211 10^3/uL (130-400); Red Blood Cell Count 4.43 10^6/uL (4.20-5.40); Red Cell Dist. Width 15.8 % (11.5-14.5); White Blood Cell Count 11.2 10^3/uL (4.8-10.8)
[2024-05-01 18:32] LABS: ALT (SGPT) 18 U/L (0-35); AST (SGOT) 33 U/L (14-36); Albumin 2.7 g/dl (3.5-5.0); Alkaline Phosphatase 124 U/L (38-126); Blood Urea Nitrogen 39 mg/dl (7-17); Carbon Dioxide 22 mmol/L (22-30); Chloride 104 mmol/L (98-107); Glucose 187 mg/dl (70-99); Sodium 132 mmol/L (135-145); Total Bilirubin 1.2 mg/dl (0.2-1.3); Total Protein 5.6 g/dl (6.3-8.2)
--- NOTE | 2024-05-01 19:05 | ED.GENMED ---
History of Present Illness
General
Chief Complaint: Blood Pressure Problem
Source: patient
Exam Limitations: none
Time Seen by Provider: 05/01/24 19:04
Nursing documentation reviewed up to this point in time: agreed with
History of Present Illness
History of Present Illness:
79-year-old female presents to the emergency department complaining of feeling tired all day, and the low blood pressure at home. She has been sleeping all day, and has not drank any fluids. She is being treated with Macrobid for UTI.
Past History
Past History
ED Past Medical History: Arrthythmia (Atrial fibrillation), CHF, HTN, Hypercholesterolemia and Other (Pituitary cyst, Adrenal insufficiency, UTIs)
ED Past Surgical History: , Orthopedic and Tonsilectomy
Social History
Tobacco: Non-smoker
Alcohol: None
Drug: None
Personal:
Family History
Family History: Other (reviewed and non-contributory)
Review of Systems
Review of Systems
Allergies reviewed?: Yes
All Other Systems: Not applicable
Constitutional: Reports fatigue
EENT: Reports no symptoms
Respiratory: Reports no symptoms
Cardiac: Reports no symptoms
ABD/GI: Reports other (Decreased p.o. intake)
: Reports no symptoms
Musculoskeletal: Reports no symptoms
Skin: Reports no symptoms
Neurological: Reports weakness
Endocrine: Reports no symptoms
Hematologic/Lymphatic: Reports no symptoms
Psychiatric: Reports no symptoms
Phy Exam
Physical Exam
Physical Exam:
Physical Exam
General: Afebrile
Neck: supple. no meningeal signs. normal posterior pharynx
Heart: s1/s2 irregular rhythm, no murmur. equal radial
pulses.
HEENT: Pupils equal round reactive to light, EOMI, subconjunctival hemorrhage left eye
Lungs: no acute respiratory distress. clear bilaterally
Abdomen: normal bowel sounds. not tender. no CVAT
Neuro: alert and oriented. no focal neurological deficits cranial nerves II through XII intact
Skin: Psoriasis on extremities
Psychiatric: well kept. interactive and cooperative
Extremities: Bilateral tibial edema. no calf tenderness. negative homans. good distal pulses
Course
Orders/Labs/Results
Orders:
Orders
05/01/24 17:43
Electrocardiogram (*1) Urgent
Reason for Study: Hypertension, Benign
05/01/24 17:45
EKG- Treatment ONCE
05/01/24 18:01
Complete Blood Count/With Diff Urgent
Comprehensive Metabolic Panel Urgent
Abnormal Lab Results
05/01/24
18:01
WBC 11.2 H 10^3/uL
(4.8-10.8)
MCHC 32.9 L g/dL
(33.0-37.0)
RDW 15.8 H %
(11.5-14.5)
MPV 11.2 H fL
(7.4-10.4)
Abs Immat Gran (auto) 0.2 H 10^3/uL
(0-0.05)
Absolute Neuts (auto) 9.0 H 10^3/uL
(1.4-6.5)
Absolute Lymphs (auto) 0.9 L 10^3/uL
(1.2-3.4)
Absolute Monos (auto) 0.7 H 10^3/uL
(0.1-0.6)
Immature Gran % 1.4 H %
(0-0.5)
Neutrophils % 80.3 H %
(42.2-75.2)
Lymphocytes % 8.3 L %
(20.5-51.1)
Sodium 132 L mmol/L
(135-145)
Potassium 6.0 H mmol/L
(3.5-5.1)
BUN 39 H mg/dl
(7-17)
Creatinine 1.7 H mg/dL
(0.6-1.0)
Glucose 187 H mg/dl
(70-99)
Total Protein 5.6 L g/dl
(6.3-8.2)
Albumin 2.7 L g/dl
(3.5-5.0)
05/01/24 18:01
05/01/24 18:01
Vital Signs
Initial and Last Documented VS:
Initial Vital Signs
Temp Pulse Resp BP Pulse Ox
99.0 F 77 16 128/80 95
05/01/24 17:40 05/01/24 17:40 05/01/24 17:40 05/01/24 17:40 05/01/24 17:40
Last Documented Vital Signs
Temp Pulse Resp BP Pulse Ox
99.0 F 69 18 102/49 93
05/01/24 17:40 05/01/24 19:00 05/01/24 19:00 05/01/24 19:00 05/01/24 19:00
MDM/Problems Addressed
Differential Diagnosis Includes:
Acute renal failure, hyperkalemia, UTI
MDM/Problems Addressed:
79-year-old female with acute renal failure, hyperkalemia, hyponatremia, hypovolemia. Current treatment for UTI as well. Admit to hospitalist.
Chronic conditions affecting care: HTN and Arrhythmia
Acute Exacerbation and/or Progression of Chronic Illness: HTN and Arrhythmia
*Pulse Oximetry
Patient hypoxic: no
*EKG
Interpreted by ED Provider?: Yes
EKG Intrepretation Date: 05/01/24
EKG Intrepretation Time: 17:49
Interpretation: abnormal
Comparison EKG: no changes
Heart Rate: 82
Rate: normal
Rhythm: atrial flutter
[place]: normal axis
Interval: normal interval
QRS Pattern: normal QRS
Ischemia: non-specific ST changes
*Wait Staff Interpretation
Rate: normal
Interpretation: abnormal
Heart Rate: 75
Rhythm: atrial flutter
*Critical Care Note
Total Time (30-74mins, 75-104mins- exclusive of procedures): 30
comment:
Critical care statement: A total of 30 minutes of critical care time was provided for this patient. This includes management of unstable vital signs, evaluation of the patient at bedside, reviewing the patient's pertinent medical records, discussion
with consultants, review of old EKGs and review of pertinent medical records. This time with separate from time utilized to perform the aforementioned documented procedures
Data Reviewed
Review of Other/Old Records Reveals: Labs
Source: records (Prior potassium 4.6, creatinine 1.1 on March 01, 2024)
Patient Management
Social determinants of health affecting care: Living situation
Discussion with other providers: Hospitalist
Escalation/DeEscalation of care consider admission/obs:
Admit indicated
ED Attending Note
-
Portions of this chart may have been created with voice recognition software.� Occasional wrong word or��sound alike� substitutions may have occurred due to the inherent limitations of voice recognition software.
Discharge Plan
Departure
Patient Disposition: Admit
Date of Disposition: 05/01/24
Time of Disposition: 19:37
Admit to: IMU
Presentation/result/management discussed w/ accepting MD/DO: Hospitalist
Patient with high blood pressure during this ER visit?: No
Condition: Fair
Discharge Problem:
Acute renal insufficiency, Liver cirrhosis secondary to MAZARIEGOS, Acute hyperkalemia, Hypovolemia
Prescriptions:
No Action
liothyronine 5 MCG tablet
5 mcg PO DAILY
Xifaxan 550 MG tablet
550 mg PO BID
Eliquis 5 MG tablet
5 mg PO BID
pantoprazole 40 mg Tablet,Delayed Release (Dr/Ec)
40 mg PO DAILY
bumetanide 1 mg Tablet
1 mg PO BID
simethicone 80 mg Tablet,Chewable
160 mg PO DAILYPRN PRN (Reason: gas)
lactulose 20 gram/30 mL Solution
20 g PO BID
fluoxetine 20 mg Tablet
20 mg PO DAILY
prednisone 5 mg tablet
5 mg PO DAILY
Rx Instructions:
12/14/2023, start date: 12/04/2023; end date: 01/03/2024.
bisoprolol fumarate 10 mg Tablet
10 mg PO DAILY 30 Days Qty: 30 0RF
diltiazem HCl 120 mg capsule,extended release 24hr
120 mg PO BID
ondansetron HCl 4 mg Tablet
4 mg PO Q8HPRN PRN (Reason: nausea)
tramadol 50 mg Tablet
50 mg PO BIDPRN PRN (Reason: severe pain)
spironolactone 25 mg Tablet
25 mg PO DAILY
levothyroxine 75 mcg Tablet
75 mcg PO DAILY
calcium carbonate 500 mg calcium (1,250 mg) Tablet
500 mg PO DAILY
Referrals:
Charmaine Damian CRNP [Family Provider] -
Interventions
Interventions:
ED- Cardiac Assessment Last Done: 05/01/24 18:37
ED- Neurological Assessment Last Done: 05/01/24 18:37
ED- Pulmonary Assessment Last Done: 05/01/24 18:37
Discharge Date and Time
Print Language: SAMOAN
[2024-05-01 19:36] LABS: Glucose - Point of Care 173 mg/dl (70-99)
[2024-05-01] MEDS: NOVOLIN R 5 UNITS IV (19:40)
[2024-05-01] MEDS: DEXTROSE 50% SYRINGE 25 GRAMS IV ×2 (19:41→23:34)
[2024-05-01] MEDS: NSS 500 IV (19:44)
--- NOTE | 2024-05-01 19:44 | HPS.HSE ---
Family Physician
-
Family Physician: JW Van
Chief Complaint
-
weakness
History of Present Illness
79-year-old female with history of A-fib, congestive heart failure, hypertension, hyperlipidemia, adrenal insufficiency, UTI, presented to us with generalized weakness, feeling tired sleeping more than usual. Low BP at home . Patient was taking
Cipro as outpatient for UTI .it was switched to Macrobid yesterday as the culture grew enterococcus. Patient still with dysuria . She complained of dizziness .denied headache or syncopal episode .patient denied fever, chills, chest pain, short of
breath .patient denied runny nose, congestion, cough .patient denied abdominal pain, nausea, vomiting, diarrhea.
Patient was noted to have electrolyte imbalance in the ER. Patient received fluids, insulin, dextrose in ER. Admitting for further management
Medical History
Past Medical History
Past Medical History: Reports Other
Additional Past Medical History:
Hepatic encephalopathy
Sepsis hypotension
Depression
Chronic systolic CHF
Hypothyroidism
GERD
adrenal insufficiency
Past Surgical History: Reports Other
Additional Past Surgical History:
Tonsillectomy
Social History
Tobacco: Non-smoker
Alcohol: Occasional
Drug: None
Personal:
Living: With Family
Family History
Family History: Not pertinent
Allergies / Home Medications
Allergies reflects when Allergies were last updated in [facility].
Home Medications with original date entered in [facility]
Allergy/Medication List:
Allergies
Allergy/AdvReac Type Severity Reaction Status Date / Time
meropenem Allergy Intermediate tremors Verified 02/28/24 19:34
Penicillins Allergy Hives Verified 02/28/24 19:34
amlodipine AdvReac Intermediate Swelling Verified 02/28/24 19:34
Home Medications
liothyronine 5 mcg tablet 5 mcg PO DAILY Thyroid 10/17/19
rifaximin 550 mg tablet (Xifaxan) 550 mg PO BID Liver Issues 10/17/19
bumetanide 1 mg tablet 1 mg PO BID Fluid Retention/Swelling 11/12/23
lactulose 20 gram/30 mL oral solution 20 g PO DAILYPRN PRN constipation 11/12/23
fluoxetine 20 mg tablet 20 mg PO HS depression 12/14/23
prednisone 5 mg tablet 5 mg PO DAILY Anti-Inflammatory 12/14/23
levothyroxine 75 mcg tablet 75 mcg PO DAILY Thyroid 02/29/24
acetaminophen 500 mg tablet (Tylenol Extra Strength) 1,000 mg PO DAILY 05/01/24
alendronate 70 mg tablet 70 mg PO MO 05/01/24
apixaban 2.5 mg tablet (Eliquis) 5 mg PO BID 05/01/24
bisoprolol fumarate 5 mg tablet 10 mg PO DAILY 05/01/24
carboxymethylcellulose sodium 1 % eye liquid gel drops 2 drp LEFT EYE BIDPRN PRN dry eye 05/01/24
diltiazem HCl 120 mg capsule,extended release 24 hr (Cartia XT) 120 mg PO DAILY 05/01/24
nystatin 100,000 unit/gram topical cream 1 applic topical BID sores on upper body 05/01/24
nystatin 100,000 unit/gram topical powder 1 applic topical BID sores on buttocks 05/01/24
spironolactone 25 mg tablet 25 mg PO DAILY 05/01/24
Review of Systems
-
Constitutional: Reports No Symptoms
EENT: Reports No Symptoms
Respiratory: Reports No Symptoms
Cardiac: Reports No Symptoms
Abdomen/GI: Reports No Symptoms
: Reports No Symptoms
Musculoskeletal: Reports No Symptoms
Skin: Reports No Symptoms
Neurological: Reports Dizzy and Weakness
Endocrine: Reports No Symptoms
Hematologic/Lymphatic: Reports No Symptoms
Psych: Reports No Symptoms
Physical Exam
Vital Signs
Vital Signs
Temp Pulse Resp BP Pulse Ox
99.0 F 80 18 102/49 93
05/01/24 17:40 05/01/24 19:15 05/01/24 19:15 05/01/24 19:00 05/01/24 19:15
Physical Exam
General: Well Developed, Well Nourished and No Apparent Distress
HEENT: NormoCephalic, Moist mucous membranes and Atraumatic
Respiratory: Clear
Cardiac: S1/S2 and Regular Rhythm; No Murmur or Rub
GI: Soft, Non Tender, Non Distended and Normal Bowel Sounds; No Organomegaly
Rectal: Deferred by Provider
Musculoskeletal: No Clubbing, No Cyanosis and Other (Lower extremities edema)
Skin: Rash and Other (Fungal rash noted underneath the breast and abdominal folds)
Neuro: AO x 3 and Nonfocal/grossly intact
Laboratory Results
-
05/01/24 18:01
Laboratory Results
Total Bilirubin 1.2 mg/dl (0.2-1.3) 05/01/24 18:01
AST 33 U/L (14-36) 05/01/24 18:01
ALT 18 U/L (0-35) 05/01/24 18:01
Alkaline Phosphatase 124 U/L (38-126) 05/01/24 18:01
Data Reviewed
-
Lab Data: Labs Reviewed by me
Impression/Plan
-
# Acute renal failure/hyperkalemia likely hypovolemic
-Sodium improved from, creatinine 1.5, potassium 6.0
-Hold diuretics
-received insulin and dextrose in ER
-monitor BMp at 2200pm
# History of paroxysmal A-fib
-EKG with a flutter
-Eliquis continued
-bisoprolol and Cartia continue with hold parameters
#UTI
-urine culture from outside grew enterococcus cloacae
-Macrobid continued
-repeat UA pending
# History of adrenal insufficiency
-received hydrocortisone in ER
-will continue prednisone 50mg
# Leukocytosis likely from steroids
-WBCs 11.2
#Essential Hypertension
-BP soft in Er
-diluretics held
#Hypothyroidism
- Stable. Continue thyroid hormone replacement.
# Fungal rash underneath the breast and abdominal folds
-nystatin continued
#MAZARIEGOS Cirrhosis
- PILE DRIVING SUPERVISOR Rifaximin
- cont PILE DRIVING SUPERVISOR lactulose
# History of diastolic heart failure/chronic lower extremities edema
-Patient not in acute exacerbation
-Hold Bumex and spironolactone
-Daily weight, strict EMETERIO
# Depression
-Fluoxetine continued
DVT PPx On Eliquis
FULL CODE
[2024-05-01] MEDS: SOLU-CORTEF 100 MG IV (19:57)
[2024-05-01 20:47] LABS: Urine Albumin Negative (Neg - Trace); Urine Bilirubin Negative (Negative); Urine Character Clear (Clear); Urine Color Yellow; Urine Glucose Negative (Negative); Urine Ketone Negative (Negative); Urine Leukocyte Negative (Negative); Urine Nitrite Negative (Negative); Urine Occult Blood Negative (Negative); Urine Specific Gravity 1.015 (<1.030); Urine Urobilinogen Negative (Neg - 1+)
--- NOTE | 2024-05-01 20:54 | W.PN.UPDATE ---
Update Note
Progress Note Update
This is an addendum to the H&P written by Theodora Wade on 05/01/2024. Patient seen and examined independent with BSS SOLUTION ARCHITECT.
79-year-old female past medical show paroxysmal atrial fibrillation, CHF, MAZARIEGOS cirrhosis, hypertension, adrenal sufficiency, hyperlipidemia, presenting for fatigue and low blood pressure at home and lethargy. Recently had urinary symptoms treated
with ciprofloxacin with urine culture subsequently growing Enterococcus faecalis and she was switched to Macrobid which she started yesterday. She has been having nausea from the antibiotics with decreased p.o. intake. Denies any urinary symptoms
at this time.
On physical examination patient has left conjunctival hemorrhage of left eye. She also has rash on her arm and under her breasts likely fungal for which she is taking topical nystatin.
Labs show SANTOSH, hyperkalemia, leukocytosis. SANTOSH/hyperkalemia possibly prerenal and exacerbated by spironolactone. IV fluids were given. Insulin/dextrose given. Hold spironolactone. Recheck BMP.
Likely patient has persistent UTI. Check urinalysis. Continue Macrobid.
[2024-05-01 20:56] LABS: Glucose - Point of Care 138 mg/dl (70-99)
[2024-05-01] MEDS: PROZAC 20 MG PO (22:11)
[2024-05-01] MEDS: NSS 1000 IV (22:11)
[2024-05-01 22:25] LABS: Blood Urea Nitrogen 40 mg/dl (7-17); Calcium 8.6 mg/dl (8.4-10.2); Carbon Dioxide 19 mmol/L (22-30); Chloride 108 mmol/L (98-107); Estimated Creatinine Clearance 34 ml/min; Glucose 123 mg/dl (70-99); Potassium 5.7 mmol/L (3.5-5.1); Sodium 131 mmol/L (135-145); eGFR 38.75
[2024-05-01 22:38] LABS: Cortisol, Random > 123.0 ug/dl
[2024-05-01] MEDS: TYLENOL 650 MG PO (22:48)
[2024-05-01] MEDS: REFRESH CELLUVISC GEL 2 DROPS LEFT EYE (22:48)
[2024-05-01] MEDS: LOKELMA 5 GRAM PO (23:30)
[2024-05-01 23:39] LABS: Glucose - Point of Care 124 mg/dl (70-99)
[2024-05-01] MEDS: NOVOLIN R 0.05 UNITS IV (23:40)
[2024-05-02] VITALS (8 sets, daily range): BP systolic 93–127; BP diastolic 61–75; PULSE 102–104; O2SAT 96; BMI 35.0
--- NOTE | 2024-05-02 01:28 | PTCARENOTE ---
Patient arrived from the ED via stretcher at approximately 2130. Patient pulled over from stretcher to bed x3 assist. Patient AAOx3, forgetful. VSS as documented. Assessment as documented. Patient oriented to room. Bed in lowest position. Call mccall
within reach.
[2024-05-02 03:03] LABS: Blood Urea Nitrogen 38 mg/dl (7-17); Calcium 8.5 mg/dl (8.4-10.2); Carbon Dioxide 23 mmol/L (22-30); Chloride 106 mmol/L (98-107); Estimated Creatinine Clearance 34 ml/min; Glucose 164 mg/dl (70-99); Potassium 5.5 mmol/L (3.5-5.1); Sodium 133 mmol/L (135-145); eGFR 38.75
[2024-05-02 04:09] LABS: Glucose - Point of Care 115 mg/dl (70-99)
[2024-05-02] MEDS: LOKELMA 5 GRAM PO (04:11)
[2024-05-02] MEDS: NOVOLIN R IV (04:11)
[2024-05-02] MEDS: DEXTROSE 50% SYRINGE 25 GRAMS IV (04:11)
[2024-05-02] MEDS: NOVOLIN R 0.05 UNITS IV (04:39)
[2024-05-02] MEDS: SYNTHROID 75 MCG PO (05:35)
[2024-05-02 05:40] LABS: Glucose - Point of Care 170 mg/dl (70-99)
[2024-05-02 06:35] LABS: Glucose - Point of Care 128 mg/dl (70-99)
[2024-05-02 07:00] LABS: Blood Urea Nitrogen 36 mg/dl (7-17); Calcium 8.5 mg/dl (8.4-10.2); Carbon Dioxide 23 mmol/L (22-30); Chloride 105 mmol/L (98-107); Estimated Creatinine Clearance 37 ml/min; Glucose 149 mg/dl (70-99); Sodium 132 mmol/L (135-145); eGFR 42.35
[2024-05-02 07:07] LABS: Platelet Count 150 10^3/uL (130-400)
[2024-05-02 07:08] LABS: Hematocrit 36.5 % (37.0-47.0); Hemoglobin 12.3 g/dL (12.0-16.0); Mean Corp Hgb Conc. 33.7 g/dL (33.0-37.0); Mean Corpuscular Hgb 30.8 pg (27.0-31.0); Mean Corpuscular Volume 91.5 fL (81.0-99.0); Mean Platelet Volume 11.2 fL (7.4-10.4); Red Blood Cell Count 3.99 10^6/uL (4.20-5.40); Red Cell Dist. Width 15.3 % (11.5-14.5); White Blood Cell Count 8.8 10^3/uL (4.8-10.8)
[2024-05-02] MEDS: XIFAXAN 550 MG PO ×2 (08:25→20:59)
[2024-05-02] MEDS: ELIQUIS 5 MG PO ×2 (08:25→20:59)
[2024-05-02] MEDS: MACROBID 100 MG PO (08:25)
[2024-05-02] MEDS: CARDIZEM CD 120 MG PO (08:25)
[2024-05-02] MEDS: DELTASONE 5 MG PO (08:25)
[2024-05-02] MEDS: CYTOMEL 5 MICROGRAM PO (08:25)
[2024-05-02] MEDS: MYCOSTATIN CREAM 1 APPLIC TOPICAL ×2 (08:26→20:59)
[2024-05-02 08:31] LABS: Glucose - Point of Care 93 mg/dl (70-99)
--- NOTE | 2024-05-02 09:26 | W.PN.HOSP.TC ---
Today's Communication/Plan
-
Hold further IVF
Check ammonia
PT/OT
Hold Aldactone
Bladder scan protocol
Assessment / Plan
Assessment / Plan
Physical Exam
General: No Apparent Distress, obese.
HEENT: Normocephalic, Moist mucous membranes and Atraumatic
Respiratory: Clear
Cardiac: S1/S2 and Regular Rhythm; No Murmur or Rub
GI: Soft, Non Tender, Non Distended and Normal Bowel Sounds; No Organomegaly
Rectal: Deferred by Provider
Musculoskeletal: No Clubbing, No Cyanosis and Other (Lower extremities edema)
Skin: Rash and bruises of different chronicity
Neuro: AO x 3 and Nonfocal/grossly intact
Psych: calm.
# Acute renal failure/hyperkalemia/ hyponatremia likely hypovolemic with use of Aldactone
No confusion, still feels weak.
-Sodium improved from, creatinine 1.3, potassium 5.0
-Held diuretics
- can hold further IVF
- K is 5.0.
-received insulin and dextrose in ER
-monitor BMp at 2200pm
# TME
mild, likely due to dehydration
Check ammonia level
# History of paroxysmal A-fib
-EKG with a flutter
-Eliquis continued
-bisoprolol and Cartia continue with hold parameters
#UTI
-urine culture from outside grew enterococcus cloacae
-Macrobid continued
-repeat UA came back clear.
- Order bladder scan protocol
# History of adrenal insufficiency
-received hydrocortisone in ER
-will continue prednisone 50mg
# Leukocytosis likely from steroids
-WBCs 11.2
#Essential Hypertension
-BP soft in Er
-diuretics held
#Hypothyroidism
- Stable. Continue thyroid hormone replacement.
# Fungal rash underneath the breast and abdominal folds
-nystatin continued
#MAZARIEGOS Cirrhosis
- CRIB CLERK Rifaximin
- check ammonia
- cont CRIB CLERK lactulose
# History of diastolic heart failure/chronic lower extremities edema
-Patient not in acute exacerbation
-Hold Bumex and spironolactone
-Daily weight, strict EMETERIO
# Depression
-Fluoxetine continued
DVT PPx On Eliquis
# Obesity BMI 35
FULL CODE
Total time spent to see the patient, examine the patient on the floor, review data and lab results, discuss treatment plan with patient, nursing staff around 55 minutes.
Anticipated Discharge: 24 - 48 hours
Subjective/Interval History
-
Date of Service: May 02, 2024
No chest pain
No sob
reports chronic knee pain
Objective Data
-
Labs:
Laboratory Results
05/01/24 05/01/24 05/02/24
21:54 22:01 02:32
WBC
Hgb
Hct
Plt Count
Sodium 131 L 133 L
Potassium Cancelled 5.7 H 5.5 H
Chloride 108 H 106
Carbon Dioxide 19 L 23
BUN 40 H 38 H
Creatinine 1.4 H 1.4 H
Glucose 123 H 164 H
Calcium 8.6 8.5
05/02/24
06:10
WBC 8.8
Hgb 12.3
Hct 36.5 L
Plt Count 150 D
Sodium 132 L
Potassium 5.0
Chloride 105
Carbon Dioxide 23
BUN 36 H
Creatinine 1.3 H
Glucose 149 H
Calcium 8.5
Vital Signs:
Vital Signs
Temp Pulse Resp BP Pulse Ox
97.6 F 108 18 127/73 96
05/02/24 07:35 05/02/24 08:25 05/02/24 07:35 05/02/24 08:25 05/02/24 07:35
I&O
05/01/24 05/02/24 05/03/24
06:59 06:59 06:59
Intake Total 780 / 780
Balance 780 / 780
[2024-05-02] MEDS: ZEBETA 10 MG PO (09:53)
[2024-05-02] MEDS: DESENEX/MITRAZOL/ZEASORB 1 APPLIC TOPICAL ×2 (09:55→20:57)
[2024-05-02 11:06] LABS: Glucose - Point of Care 236 mg/dl (70-99)
[2024-05-02 13:30] LABS: Ammonia 33 umol/L (9-30)
--- NOTE | 2024-05-02 14:43 | CM ---
Reviewed the chart notes and spoke with the patient at the bedside. The patient resides with her spouse in a split level home with no steps to enter first level, three steps to enter living room and a flight of steps to bedroom area. Patient has
been staying on first level. The patient has a rolling walker, wheelchair, bsc, stair glide from second level to bedroom level, home O2 (provider unknown), and a cane. The patient is current with [facility]. The patient has been to [facility], [facility], and [facility] The patient's choice of pharmacy is the [facility] [address] [place] [address]. CM continues to be available to patient/family and is monitoring medical plan for needs at discharge.
Plan: Discharge plans will depend on the patient's progress.
[2024-05-02] MEDS: DUPHALAC/CHRONULAC 20 GRAMS PO ×2 (16:42→23:06)
[2024-05-02] MEDS: PROZAC 20 MG PO (20:59)
[2024-05-03 03:11] VITALS: BP 111/74
[2024-05-03] MEDS: SYNTHROID 75 MCG PO (05:24)
[2024-05-03] MEDS: DUPHALAC/CHRONULAC 20 GRAMS PO ×2 (05:24→16:17)
[2024-05-03 05:43] VITALS: BMI 35.6
[2024-05-03 07:35] VITALS: BP 131/78
[2024-05-03 08:00] VITALS: BMI 35.6
--- NOTE | 2024-05-03 09:16 | W.PN.HOSP.TC ---
Today's Communication/Plan
-
Await labs.
c/w oral Lactulose
PT/OT
Assessment / Plan
Assessment / Plan
Physical Exam
General: No Apparent Distress, obese.
HEENT: Normocephalic, Moist mucous membranes and Atraumatic
Respiratory: Clear
Cardiac: S1/S2 and Regular Rhythm; No Murmur or Rub
GI: Soft, Non Tender, Non Distended and Normal Bowel Sounds; No Organomegaly
Rectal: Deferred by Provider
Musculoskeletal: No Clubbing, No Cyanosis and Other (Lower extremities edema)
Skin: Rash and bruises of different chronicity
Neuro: AO x 3, seems alert and Nonfocal/grossly intact
Psych: calm.
# Acute renal failure/hyperkalemia/ hyponatremia likely hypovolemic with use of Aldactone
Await labs. No flank pain
-Sodium improved from, creatinine 1.3, potassium 5.0
-Held diuretics
- can hold further IVF
- K is 5.0.
-received insulin and dextrose in ER
-monitor BMp at 2200pm
#Hepatic encephalopathy
Seems alert, but will see her again today.
MAZARIEGOS Cirrhosis
c/w Rifaximin
High Ammonia
Pt agreed to take it. Help from daughter
c/w High dose lactulose for another 24 hours even if ammonia is normal today
Re-assess tomorrow
# History of paroxysmal A-fib
-EKG with a flutter
-Eliquis continued
-bisoprolol and Cartia continue with hold parameters
#UTI
-urine culture from outside grew enterococcus cloacae, she received Macrobid
repeat urine test showed clean urine
Sent for blood culture.
- Ordered bladder scan protocol
# History of adrenal insufficiency
-received hydrocortisone in ER
-continue prednisone 5 mg. No hypotension. BP this morning 131/78
# Leukocytosis , resolved.
#Essential Hypertension
better bP now.
-diuretics held, will resume
#Hypothyroidism
- Stable. Continue thyroid hormone replacement.
# Fungal rash underneath the breast and abdominal folds
-nystatin continued
# History of diastolic heart failure/chronic lower extremities edema
-Patient not in acute exacerbation
-Held Bumex and spironolactone
-Daily weight, stable weight, resume diuretics.
# Depression
-Fluoxetine continued
DVT PPx On Eliquis
# Obesity BMI 35
FULL CODE
Total time spent to see the patient, examine the patient on the floor, review data and lab results, discuss treatment plan with patient,nursing staff around 55 minutes.
Anticipated Discharge: 24 - 48 hours
Subjective/Interval History
-
Date of Service: May 03, 2024
Objective Data
-
Labs:
Laboratory Results
05/03/24
06:00
WBC Pending
Hgb Pending
Hct Pending
Plt Count Pending
Sodium Pending
Potassium Pending
Chloride Pending
Carbon Dioxide Pending
BUN Pending
Creatinine Pending
Glucose Pending
Calcium Pending
Vital Signs:
Vital Signs
Temp Pulse Resp BP Pulse Ox
97.6 F 88 18 131/78 96
05/03/24 07:35 05/03/24 07:35 05/03/24 07:35 05/03/24 07:35 05/03/24 07:35
I&O
05/02/24 05/03/24 05/04/24
06:59 06:59 06:59
Intake Total 780 / 780 1260 / 1260
Balance 780 / 780 1260 / 1260
[2024-05-03] MEDS: ELIQUIS 5 MG PO ×2 (09:34→20:54)
[2024-05-03] MEDS: ZEBETA 10 MG PO (09:34)
[2024-05-03] MEDS: DESENEX/MITRAZOL/ZEASORB 1 APPLIC TOPICAL ×2 (09:34→20:55)
[2024-05-03] MEDS: DELTASONE 5 MG PO (09:34)
[2024-05-03] MEDS: CARDIZEM CD 120 MG PO (09:34)
[2024-05-03] MEDS: CYTOMEL 5 MICROGRAM PO (09:34)
[2024-05-03] MEDS: XIFAXAN 550 MG PO ×2 (09:35→20:54)
[2024-05-03] MEDS: MYCOSTATIN CREAM 1 APPLIC TOPICAL ×2 (09:35→20:55)
[2024-05-03 11:45] VITALS: BP 113/83
[2024-05-03] MEDS: DUPHALAC/CHRONULAC PO ×3 (11:53→21:54)
[2024-05-03 11:54] LABS: Ammonia < 9 umol/L (9-30)
[2024-05-03 11:59] LABS: Hematocrit 41.3 % (37.0-47.0); Hemoglobin 13.5 g/dL (12.0-16.0); Mean Corp Hgb Conc. 32.7 g/dL (33.0-37.0); Mean Corpuscular Hgb 31.2 pg (27.0-31.0); Mean Corpuscular Volume 95.4 fL (81.0-99.0); Platelet Count 201 10^3/uL (130-400); Red Blood Cell Count 4.33 10^6/uL (4.20-5.40); Red Cell Dist. Width 15.7 % (11.5-14.5); White Blood Cell Count 12.4 10^3/uL (4.8-10.8)
[2024-05-03 12:10] LABS: Blood Urea Nitrogen 34 mg/dl (7-17); Calcium 9.1 mg/dl (8.4-10.2); Carbon Dioxide 24 mmol/L (22-30); Chloride 106 mmol/L (98-107); Estimated Creatinine Clearance 37 ml/min; Glucose 83 mg/dl (70-99); Potassium 4.4 mmol/L (3.5-5.1); Sodium 135 mmol/L (135-145); eGFR 42.35
--- NOTE | 2024-05-03 15:33 | CM ---
Reviewed the chart notes and spoke with the patient and her spouse at the bedside. The patient wants home with [facility]. CM continues to be available to patient/family and is monitoring medical plan for needs at discharge.
Plan: Discharge to home on [facility]. Referral sent via [facility].
[2024-05-03] MEDS: BUMEX 1 MG PO (16:17)
[2024-05-03 19:37] VITALS: BP 131/74
[2024-05-03] MEDS: PROZAC 20 MG PO (21:55)
[2024-05-03 23:49] VITALS: BP 129/67
[2024-05-04] MEDS: REFRESH CELLUVISC GEL 2 DROPS LEFT EYE (00:30)
[2024-05-04 03:29] VITALS: BP 108/75
[2024-05-04] MEDS: SYNTHROID 75 MCG PO (05:48)
[2024-05-04 06:00] VITALS: BMI 34.8
[2024-05-04 07:35] VITALS: BP 122/77
[2024-05-04] MEDS: BUMEX 1 MG PO ×2 (08:04→15:45)
[2024-05-04] MEDS: ELIQUIS 5 MG PO ×2 (08:05→20:45)
[2024-05-04] MEDS: ALDACTONE 25 MG PO (08:05)
[2024-05-04] MEDS: XIFAXAN 550 MG PO ×2 (08:05→20:45)
[2024-05-04] MEDS: CYTOMEL 5 MICROGRAM PO (08:05)
[2024-05-04] MEDS: ZEBETA 10 MG PO (08:05)
[2024-05-04] MEDS: CARDIZEM CD 120 MG PO (08:06)
[2024-05-04] MEDS: DELTASONE 5 MG PO (08:06)
[2024-05-04] MEDS: TYLENOL 650 MG PO ×2 (08:06→15:44)
[2024-05-04] MEDS: DESENEX/MITRAZOL/ZEASORB 1 APPLIC TOPICAL ×2 (08:07→20:46)
[2024-05-04] MEDS: DUPHALAC/CHRONULAC PO ×3 (08:08→22:22)
[2024-05-04] MEDS: MYCOSTATIN CREAM 1 APPLIC TOPICAL ×2 (08:08→20:46)
[2024-05-04 11:05] VITALS: BP 120/82
[2024-05-04 11:29] LABS: Hematocrit 38.8 % (37.0-47.0); Hemoglobin 12.9 g/dL (12.0-16.0); Mean Corp Hgb Conc. 33.2 g/dL (33.0-37.0); Mean Corpuscular Hgb 30.7 pg (27.0-31.0); Mean Corpuscular Volume 92.4 fL (81.0-99.0); White Blood Cell Count 10.1 10^3/uL (4.8-10.8)
[2024-05-04 11:30] LABS: Mean Platelet Volume 11.2 fL (7.4-10.4); Platelet Count 191 10^3/uL (130-400)
[2024-05-04 12:24] LABS: Blood Urea Nitrogen 37 mg/dl (7-17); Carbon Dioxide 25 mmol/L (22-30); Chloride 104 mmol/L (98-107); Estimated Creatinine Clearance 37 ml/min; Glucose 68 mg/dl (70-99); Potassium 4.6 mmol/L (3.5-5.1); Sodium 133 mmol/L (135-145); eGFR 42.35
--- NOTE | 2024-05-04 14:52 | W.PN.HOSP.TC ---
Today's Communication/Plan
-
D/w pt and , seem to prefer dc in AM
Will reach out to immigration case manager to set up home services.
Encourage lactulose intake to avoid relapse.
Assessment / Plan
Assessment / Plan
Physical Exam
General: No Apparent Distress, obese.
HEENT: Normocephalic, Moist mucous membranes and Atraumatic
Respiratory: Clear
Cardiac: S1/S2 and Regular Rhythm; No Murmur or Rub
GI: Soft, Non Tender, Non Distended and Normal Bowel Sounds; No Organomegaly
Rectal: Deferred by Provider
Musculoskeletal: No Clubbing, No Cyanosis and Other (Lower extremities edema)
Skin: Rash and bruises of different chronicity
Neuro: AO x 3. She followed commands, Nonfocal/grossly intact
Psych: calm.
# Acute renal failure/hyperkalemia/ hyponatremia.
Creatinine stable at 1.3. No flank pain
- Resumed her usual diuretics
- Stopped IVF
- K is 4.6.
-received insulin and dextrose in ER
#Hepatic encephalopathy
Seems alert and lucid. She answered questions appropriately.
She has been refusing Lactulose. I talked with patient, hope she will take it today.
MAZARIEGOS Cirrhosis
c/w Rifaximin
High Ammonia but came down, still at risk of relapsing if no lactulose.
Reduced Lactulose to three times a day. Generally, BM > 4 a day is recommended.
# History of paroxysmal A-fib
-EKG with a flutter
-Eliquis continued
-bisoprolol and Cartia continue with hold parameters
#Hx of UTI
in outpatient setting.
-urine culture from outside grew enterococcus cloacae, she received Macrobid
repeat urine test showed clean urine
Blood culture no growth, clean
- Ordered bladder scan protocol
# History of adrenal insufficiency
-received hydrocortisone in ER
-continue prednisone 5 mg. No hypotension. BP this morning 122/77
# Leukocytosis , resolved.
#Essential Hypertension
BP stable. No hypotension.
#Hypothyroidism
- Stable. Continue thyroid hormone replacement.
# Fungal rash underneath the breast and abdominal folds
-nystatin continued
# History of diastolic heart failure/chronic lower extremities edema
-Patient not in acute exacerbation
-Held Bumex and spironolactone, now resumed.
-Daily weight, stable weight around 88 Kg.
# Depression
-Fluoxetine continued
DVT PPx On Eliquis
# Obesity BMI 34
Advised pt to loose weight to help with mobility and chronic arthritic pain.
FULL CODE
Total time spent to see the patient, examine the patient on the floor, review data and lab results, discuss treatment plan with patient,nursing staff around 55 minutes.
Anticipated Discharge: Within 24 hours
Subjective/Interval History
-
Date of Service: May 04, 2024
She feels better, lower back pain this morning. She feels her head is clear
Objective Data
-
Labs:
Laboratory Results
05/04/24
09:23
WBC 10.1
Hgb 12.9
Hct 38.8
Plt Count 191
Sodium 133 L
Potassium 4.6
Chloride 104
Carbon Dioxide 25
BUN 37 H
Creatinine 1.3 H
Glucose 68 L
Calcium 9.0
Vital Signs:
Vital Signs
Temp Pulse Resp BP Pulse Ox
97.8 F 98 18 120/82 93
05/04/24 11:05 05/04/24 11:05 05/04/24 11:05 05/04/24 11:05 05/04/24 11:05
I&O
05/03/24 05/04/24 05/05/24
06:59 06:59 06:59
Intake Total 1260 / 1260 720 / 720
Balance 1260 / 1260 720 / 720
[2024-05-04 15:40] VITALS: BP 113/70
[2024-05-04] MEDS: DUPHALAC/CHRONULAC 20 GRAMS PO (15:46)
[2024-05-04 20:21] VITALS: BP 115/80
[2024-05-04] MEDS: PROZAC 20 MG PO (22:19)
[2024-05-05 00:07] VITALS: BP 111/81
[2024-05-05] MEDS: TYLENOL 650 MG PO ×2 (03:11→14:57)
[2024-05-05 03:19] VITALS: BP 123/81
[2024-05-05] MEDS: SYNTHROID 75 MCG PO (05:29)
[2024-05-05 06:00] VITALS: BMI 34.4
[2024-05-05 06:40] LABS: Hematocrit 39.7 % (37.0-47.0); Hemoglobin 13.3 g/dL (12.0-16.0); Mean Corp Hgb Conc. 33.5 g/dL (33.0-37.0); Mean Corpuscular Hgb 30.9 pg (27.0-31.0); Mean Corpuscular Volume 92.3 fL (81.0-99.0); Mean Platelet Volume 11.2 fL (7.4-10.4); Platelet Count 165 10^3/uL (130-400); Red Cell Dist. Width 15.5 % (11.5-14.5); White Blood Cell Count 7.6 10^3/uL (4.8-10.8)
[2024-05-05 07:19] LABS: Blood Urea Nitrogen 39 mg/dl (7-17); Calcium 9.5 mg/dl (8.4-10.2); Carbon Dioxide 27 mmol/L (22-30); Chloride 103 mmol/L (98-107); Estimated Creatinine Clearance 34 ml/min; Glucose 96 mg/dl (70-99); Potassium 4.6 mmol/L (3.5-5.1); Sodium 132 mmol/L (135-145); eGFR 38.75
[2024-05-05 07:35] VITALS: BP 115/71
[2024-05-05] MEDS: CARDIZEM CD 120 MG PO (07:57)
[2024-05-05] MEDS: ZEBETA 10 MG PO (07:58)
[2024-05-05] MEDS: CYTOMEL 5 MICROGRAM PO (07:58)
[2024-05-05] MEDS: DELTASONE 5 MG PO (07:58)
[2024-05-05] MEDS: ALDACTONE 25 MG PO (07:58)
[2024-05-05] MEDS: DESENEX/MITRAZOL/ZEASORB 1 APPLIC TOPICAL (07:59)
[2024-05-05] MEDS: XIFAXAN 550 MG PO (07:59)
[2024-05-05] MEDS: ELIQUIS 5 MG PO (07:59)
[2024-05-05] MEDS: BUMEX 1 MG PO (07:59)
[2024-05-05] MEDS: DUPHALAC/CHRONULAC PO (08:00)
[2024-05-05] MEDS: MYCOSTATIN CREAM 1 APPLIC TOPICAL (08:00)
--- NOTE | 2024-05-05 09:42 | W.PN.HOSP.TC ---
Today's Communication/Plan
-
dc
Assessment / Plan
Assessment / Plan
Physical Exam
General: No Apparent Distress, obese.
HEENT: Normocephalic, Moist mucous membranes and Atraumatic
Respiratory: Clear
Cardiac: S1/S2 and Regular Rhythm; No Murmur or Rub
GI: Soft, Non Tender, Non Distended and Normal Bowel Sounds; No Organomegaly
Rectal: Deferred by Provider
Musculoskeletal: No Clubbing, No Cyanosis and Other (Lower extremities edema)
Skin: Rash and bruises of different chronicity
Neuro: AO x 3. She followed commands, Nonfocal/grossly intact
Psych: calm, pleasant.
# Acute renal failure/hyperkalemia/ hyponatremia.
Creatinine stable at 1.3. No flank pain
- Resumed her usual diuretics
- Stopped IVF
- K is 4.6.
-received insulin and dextrose in ER
#Hepatic encephalopathy
No abdominal pain or tenderness on exam.
Seems alert and lucid. She answered questions appropriately.
She has been refusing Lactulose. I talked with patient, advised to f/w her GI at [place]. She understands compliance with Lactulose is important to avoid recurrent encephalopathy
MAZARIEGOS Cirrhosis
c/w Rifaximin
High Ammonia but came down after increasing frequency of lactulose.
Generally, BM > 4 a day is recommended.
# History of paroxysmal A-fib
-EKG with a flutter
-Eliquis continued
-bisoprolol and Cartia continue with hold parameters
#Hx of UTI
in outpatient setting.
-urine culture from outside grew enterococcus cloacae, she received Macrobid
repeat urine test showed clean urine
Blood culture no growth, clean
- Ordered bladder scan protocol
# History of adrenal insufficiency
-received hydrocortisone in ER
-continue prednisone 5 mg. No hypotension. BP this morning 122/77
# Leukocytosis , resolved.
#Essential Hypertension
BP stable. No hypotension.
#Hypothyroidism
- Stable. Continue thyroid hormone replacement.
# Fungal rash underneath the breast and abdominal folds
-nystatin continued
# History of diastolic heart failure/chronic lower extremities edema
-Patient not in acute exacerbation
-Held Bumex and spironolactone, now resumed.
-Daily weight, stable weight around 88 Kg.
# Depression
-Fluoxetine continued
DVT PPx On Eliquis
# Obesity BMI 34
Advised pt to loose weight to help with mobility and chronic arthritic pain.
FULL CODE
Total discharge time spent to see the patient, examine the patient on the floor, review data and lab results, discuss discharge plan with patient,nursing staff around 65 minutes.
Anticipated Discharge: Today
Subjective/Interval History
-
Date of Service: May 05, 2024
She denies abd pain or chest pain
No fever over night
Objective Data
-
Labs:
Laboratory Results
05/05/24
06:12
WBC 7.6
Hgb 13.3
Hct 39.7
Plt Count 165
Sodium 132 L
Potassium 4.6
Chloride 103
Carbon Dioxide 27
BUN 39 H
Creatinine 1.4 H
Glucose 96
Calcium 9.5
Vital Signs:
Vital Signs
Temp Pulse Resp BP Pulse Ox
97.8 F 80 18 115/71 95
05/05/24 07:35 05/05/24 07:57 05/05/24 07:35 05/05/24 07:57 05/05/24 07:35
I&O
05/04/24 05/05/24 05/06/24
06:59 06:59 06:59
Intake Total 720 / 720 960 / 960
Balance 720 / 720 960 / 960
--- NOTE | 2024-05-05 10:58 | CM ---
CM reviewed chart and noted dc order
Bedside meeting with with pt
Plan for home with [facility]
Pt notes she is at her baseline home O2 level
Spouse to transport and will bring portable device
IMM verbally review due to infection precautions
Copy provided
Discharge Disposition- home with [facility], spouse transport
fax- [phone]
[2024-05-05 15:02] VITALS: BP 124/70
--- NOTE | 2024-05-05 16:18 | W.DCSUMMARY ---
Discharge Summary
Discharge Data
Date of Admission: 05/01/24
Date of Discharge: 05/05/24
-
Pending Results: No
Hospital Course
79 years old female presented with weakness and lethargy. She was recently diagnosed with urinary tract infection and received oral antibiotic. Patient was found to have acute kidney injury with hyperkalemia and hyponatremia. Her diuretic regimen
was held. She received intravenous fluid with the treatment for hyperkalemia. She was found to have elevated ammonia with confusion. Patient was diagnosed with hepatic encephalopathy. She did not have abdominal pain or gastrointestinal symptoms.
Patient received lactulose treatment with good response. Mentation improved and went back to baseline per family and the patient. Creatinine improved to baseline 1.3-1.4. Patient was able to tolerate diet. Blood culture did not show infection.
Urine test did not show evidence of infection. Patient had history of noncompliance with lactulose. Per patient, lactulose caused a lot of discomfort and inconvenience. Patient was advised to continue taking lactulose and educated regarding
prevention of hepatic cephalopathy, she verbalized understanding. Family was made aware of importance to continue lactulose. Patient was advised to follow-up with her theatrical dresser at [facility] for further recommendations. Patient was
evaluated by physical therapy and recommended nursing home facility. Patient and family wanted to go home with home health services. Case management was consulted. Patient remained hemodynamically stable and was discharged in a stable
condition.
Discharge Plan
-
Patient Disposition: Home with Home Care
Discharge Diagnosis/Procedures: Acute kidney injury/hyperkalemia/ hyponatremia.
Hepatic encephalopathy, please follow with your GI doctor at [facility]. You might need some adjustments to your medications.
Condition: Fair
Diet: Low Sodium
Referrals:
Charmaine Damian CRNP [Family Provider] -
Prescriptions:
Continued
liothyronine 5 MCG tablet
5 mcg PO DAILY
Xifaxan 550 MG tablet
550 mg PO BID
bumetanide 1 mg Tablet
1 mg PO BID
fluoxetine 20 mg Tablet
20 mg PO HS
prednisone 5 mg tablet
5 mg PO DAILY
levothyroxine 75 mcg Tablet
75 mcg PO DAILY
alendronate 70 mg Tablet
70 mg PO MO
acetaminophen [Tylenol Extra Strength] 500 mg Tablet
1,000 mg PO DAILY
spironolactone 25 mg Tablet
25 mg PO DAILY
bisoprolol fumarate 5 mg Tablet
10 mg PO DAILY
nystatin 100,000 unit/gram Cream
1 applic TOPICAL BID
diltiazem HCl [Cartia XT] 120 mg Capsule,Extended Release 24hr
120 mg PO DAILY
nystatin 100,000 unit/gram Powder
1 applic TOPICAL BID
carboxymethylcellulose sodium 1 % Drops, Liquid Gel
2 drp LEFT EYE BIDPRN PRN (Reason: dry eye)
Eliquis 2.5 mg Tablet
5 mg PO BID
Changed
lactulose 20 gram/30 mL Solution
20 g PO BID Qty: 0 0RF
Discharge Orders:
Discharge Patient (As Directed); Ordered 05/05/24
Ordered By: Nydia Medina
Discharge Date and Time
Discharge Date/Time: 05/05/24 15:55
Print Language: TRINIDADIAN
== END 2024-05-05 15:55 | disposition home health service (06) | DRG 682 ==
LOC: 2 NORTH 21:07
PROVIDERS: Nurse Practitioner Family; Nurse Practitioner Gerontology; Registered Nurse; Student in an Organized Health Care Education/Training Program; ADMITTING PHYSICIAN Hospitalist; ATTENDING PHYSICIAN Internal Medicine; EMERGENCY PHYSICIAN Emergency Medicine; FAMILY PHYSICIAN Nurse Practitioner
DX: N17.9 Acute kidney failure, unspecified (principal); G92.8 Other toxic encephalopathy; E27.40 Unspecified adrenocortical insufficiency; N39.0 Urinary tract infection, site not specified; E87.1 Hypo-osmolality and hyponatremia; I50.32 Chronic diastolic (congestive) heart failure; I11.0 Hypertensive heart disease with heart failure; E03.9 Hypothyroidism, unspecified; E23.6 Other disorders of pituitary gland; E78.00 Pure hypercholesterolemia, unspecified; I48.0 Paroxysmal atrial fibrillation; B36.9 Superficial mycosis, unspecified; K21.9 Gastro-esophageal reflux disease without esophagitis; E87.5 Hyperkalemia; E86.1 Hypovolemia; E86.0 Dehydration; D72.828 Other elevated white blood cell count; K74.69 Other cirrhosis of liver; K75.81 Nonalcoholic steatohepatitis (NASH); K76.82 Hepatic encephalopathy; F32.A Depression, unspecified; B95.2 Enterococcus as the cause of diseases classified elsewhere; T47.3X6A Underdosing of saline and osmotic laxatives, initial encounter; T38.0X5A Adverse effect of glucocorticoids and synthetic analogues, initial encounter; Z88.0 Allergy status to penicillin; Z88.8 Allergy status to other drugs, medicaments and biological substances; Z79.890 Hormone replacement therapy; Z79.01 Long term (current) use of anticoagulants; Z79.899 Other long term (current) drug therapy; Z91.128 Patient's intentional underdosing of medication regimen for other reason
CPT/HCPCS: 71045; 80048; 80053; 81003; 82140; 82533; 82962; 85025; 85027; 87040; 93005; 96361; 96374; 96375; 97116; 97163; 97167; 97530; 99291

== ENCOUNTER 2024-10-06 19:56 | Inpatient (IN) | payer OTHER, SELFPAY ==
[2024-10-06] VITALS (16 sets, daily range): BP systolic 80–110; BP diastolic 40–74; BMI 38.7; BMI 37.9
[2024-10-06 13:46] LABS: Hematocrit 37.8 % (37.0-47.0); Hemoglobin 12.6 g/dL (12.0-16.0); Mean Corp Hgb Conc. 33.3 g/dL (33.0-37.0); Mean Corpuscular Hgb 30.4 pg (27.0-31.0); Mean Corpuscular Volume 91.1 fL (81.0-99.0); Mean Platelet Volume 10.5 fL (7.4-10.4); Platelet Count 226 10^3/uL (130-400); Red Blood Cell Count 4.15 10^6/uL (4.20-5.40); Red Cell Dist. Width 19.8 % (11.5-14.5)
[2024-10-06 13:57] LABS: APTT 38.6 Sec (23.4-35.0); INR 2.74
[2024-10-06 14:00] LABS: Ammonia < 9 umol/L (9-30)
[2024-10-06 14:00] LABS: % Basophils 0.1 % (0-2); % Eosinophils 0.9 % (0-6); % Immature Granulocytes 7.4 % (0-0.5); % Lymphocytes 6.7 % (20.5-51.1); % Monocytes 8.7 % (1.7-9.3); % Neutrophils 76.2 % (42.2-75.2); Absolute Eosinophils 0.1 10^3/uL (0-0.7); Absolute Lymphocytes 0.9 10^3/uL (1.2-3.4); Absolute Monocytes 1.2 10^3/uL (0.1-0.6); Absolute Neutrophils 10.6 10^3/uL (1.4-6.5); Nucleated Red Blood Cells % 0.2 %
[2024-10-06 14:09] LABS: Blood Urea Nitrogen 82 mg/dl (7-17); Calcium 7.9 mg/dl (8.4-10.2); Carbon Dioxide 20 mmol/L (22-30); Chloride 102 mmol/L (98-107); Estimated Creatinine Clearance 17 ml/min; Glucose 70 mg/dl (70-99); Sodium 132 mmol/L (135-145); eGFR 15.53
--- NOTE | 2024-10-06 14:25 | ED.GENMED ---
History of Present Illness
<Bridget Chin PA-C - Last Filed: 10/08/24 00:31>
General
Chief Complaint: Change in Mental Status
Source: patient and family (daughter)
Exam Limitations: altered mental status
Time Seen by Provider: 10/06/24 14:01
Nursing documentation reviewed up to this point in time: agreed with
History of Present Illness
History of Present Illness:
Patient is a 79-year-old female with history atrial fibrillation on Eliquis, CHF, hypertension, hyperlipidemia presenting to the emergency department due to weakness and altered mental status. Patient's daughter states that over the past few days
patient has not been herself, little appetite and appears somewhat altered. Patient contributing little to history due to altered mental status. Patient does state that she feels 'sick '. Patient does deny any chest pain, shortness of breath,
headache, abdominal pain.
Patient's daughter states that she was admitted at [facility] from early August until early September secondary to a septic prosthetic left knee with hospital course complicated by acute CHF exacerbation, UTI. Patient recently discharged about
2 weeks ago and sent to nursing facility.
Past History
<Bridget Chin PA-C - Last Filed: 10/08/24 00:31>
Past History
ED Past Medical History: Arrthythmia (Atrial fibrillation), CHF, HTN, Hypercholesterolemia and Other (Pituitary cyst, Adrenal insufficiency, UTIs)
ED Past Surgical History: , Orthopedic and Tonsilectomy
Social History
Tobacco: Non-smoker
Alcohol: None
Drug: None
Personal:
Family History
Family History: Other (reviewed and non-contributory)
Review of Systems
<Bridget Chin PA-C - Last Filed: 10/08/24 00:31>
Review of Systems
Allergies reviewed?: Yes
All Other Systems: ROS reviewed and negative except as documented in HPI and ROS
Phy Exam
<Bridget Chin PA-C - Last Filed: 10/08/24 00:31>
Physical Exam
Physical Exam:
Vitals: Tachycardic, otherwise stable vital signs. Afebrile
General: Patient is chronically ill-appearing, weak
Skin: Scattered ecchymoses bilateral upper and lower extremities. Left knee
Head: Normocephalic, atraumatic
Eyes: Sclera nonicteric. EOMs intact. No nystagmus.
Throat: Protecting airway
Neck: Normal ROM, no cervical spine tenderness, no meningismus
Cardiac: Tachycardic, irregular rhythm, no murmurs.
Pulm: Normal respiratory effort, no wheezes, rales, rhonchi heard on exam.
Abdomen: Abdomen soft. No abdominal tenderness.
Extremities: 2+ pitting edema in bilateral upper and lower extremities with fluid filled blisters on b/l upper extremities. Skin tear to left forearm. Healing surgical scar on left knee with surrounding erythema and some crusting. No purulent
drainage or red streaking Palpable distal pulses.
Neuro: AAO x1 to person, not place or time. No gross deficits
Psychiatric: Normal affect.
Course
<Bridget Chin PA-C - Last Filed: 10/08/24 00:31>
Orders/Labs/Results
Orders:
Orders
10/06/24 13:26
Basic Metabolic Panel Urgent
Complete Blood Count/With Diff Urgent
Erythrocyte Sed Rate Urgent
Comment: ADD ON
10/06/24 13:35
Ammonia Urgent
Protime/PTT Urgent
10/06/24 14:19
CT Head W/o Iv Contrast Urgent
Comment:
Reason For Exam: altered mental status
Straight cath- Treatment ONCE
10/06/24 14:20
Add On- LAB Urgent
Tests Added?: pro-bnp, esr/crp
10/06/24 14:21
Electrocardiogram (*1) Urgent
Reason for Study: Shortness of Breath
CR Chest - 2 Views Urgent
Comment:
Reason For Exam: SOB
10/06/24 14:23
CR Knee - Left 1 Or 2 Views Urgent
Reason For Exam: hx septic knee currently on abx
10/06/24 14:34
C-Reactive Protein Urgent
Comment: ADD ON
Comprehensive Metabolic Panel Urgent
NT-proBNP Urgent
Comment: ADD ON
Troponin I Urgent
10/06/24 Dinner
Cholesterol Lowering
At Your Request: Non-Participating
Cholesterol Lowering: Sodium, 2 Gram
10/06/24 15:07
Add On- LAB Urgent
Tests Added?: ESR
10/06/24 15:16
Lactic Acid Q4H
Comment: CANCEL 2nd LACTIC ACID IF 1st LACTIC ACID IS LESS THAN 2
Urinalysis Reflex To Culture Urgent
Date Specimen was Collected: 10/06/24
Time Specimen was Collected: 15:14
Comment: straight cath
Urine Microscopic Reflex Cult Urgent
Blood Culture Q30M
NIKKI Source: Blood/Venous
Specimen Description:
Urine Culture Urgent
NIKKI Source: U
Specimen Description:
Date Specimen was Collected: 10/06/24
Time Specimen was Collected: 15:14
10/06/24 15:45
Blood Culture Q30M
NIKKI Source: Blood/Venous
Specimen Description:
10/06/24 17:26
0.9% Sodium Chloride 500 ml [Nss] 500 ml IV BOLUS
10/06/24 17:34
0.9% Sodium Chloride 500 ml [Nss] 500 ml IV BOLUS
10/06/24 17:53
Vancomycin [Vancocin] 2,000 mg 0.9% Sodium Chloride 500 ml [Nss] 500 ml IV NOW
10/06/24 18:10
Dextrose 50%-Water [Dextrose 50% Syringe] 25 grams .ROUTE .STK-MED ONE
10/06/24 18:11
Dextrose 50%-Water [Dextrose 50% Syringe] 25 grams IV NOW STA
10/06/24 18:36
COVID-19 Antigen Urgent
Source: Nasal Swab
Influenza A+B Rapid Molecular Urgent
NIKKI Source: Nasal Swab
Specimen Description:
10/06/24 19:06
Admit/Transfer Patient As Directed
Co-Sign Provider:
Level of Care: Inpatient admission
Assign to:: ICU
Physician / Group: ting scott
Diagnosis: sepsis conc,pna/septic l knee, hypotension, hypoalbumin,santosh
Reason for Hospitalization: sepsis conc,pna/septic l knee, hypotension, hypoalbumin,santosh
Expected length of stay greater than two midnights?: Yes
ELOS- Estimated Length of Stay in days: 7
I certify the patient meets the requirements for IP care: Yes
10/06/24 19:11
Code Status As Directed
Resuscitation Status: Full Code
10/06/24 19:18
PRN Pain Medication Management As Directed
May give lesser potent ordered pain med per pt: Yes
preference::
Protocol:: Medication orders for pain may be administered in a
manner that supports deferring to patient preference
when the pt is:
- Requesting an ordered lesser potent pain medication.
Least to most potent pain medications are defined
as: acetaminophen < NSAID < tramadol < opioids
(morphine, oxycodone, hydromorphone).
- Requesting a lesser dose of the same medication IF
ORDERED.
- Requesting a less intrusive route of administration
if both routes are prescribed by the provider (PO <
IV).
10/06/24 20:00
0.9% Sodium Chloride 1000 ml [Nss] 1,000 ml IV 100 mls/hr
Albumin Human 25% 100 ml [Flexbumin] 25 grams in 100 ml IV Q8H
10/06/24 20:10
Lactic Acid Q4H
Comment: CANCEL 2nd LACTIC ACID IF 1st LACTIC ACID IS LESS THAN 2
10/06/24 20:45
Acetaminophen [Tylenol] 650 mg PO Q4HPRN PRN
Bisacodyl [Dulcolax] 10 mg RECTAL [id number] PRN
Dextrose 50%-Water [Dextrose 50% Syringe] 12.5 grams IV [id number] PRN
Glucagon [GlucaGen] 1 mg IM PRN PRN
Oxycodone [Roxicodone] 5 mg PO Q6H PRN
Polyethylene Glycol Powder [Miralax] 17 grams PO DAILYPRN PRN
Rifaximin [Xifaxan] 550 mg PO BID
Saccharomyces Boulardii [Florastor] 250 mg PO BID
VANCOMYCIN Pharmacy to Dose [VANCOCIN Pharmacy to Dose] 1 each Pharmacy To Prepare [Call Pharmacy To Prepare] 0 ml IV PER PROTOCOL
10/06/24 20:45
VTE Contraindication Routine
VTE Mechanical Device Contraindication: Medical Contraindication
Pharmocologic Contraindication: Medical Contraindication
Comment: pt on eliquis
Activity As Directed
Activity Level: As Tolerated
Bedside Glucose Monitoring As Directed
Frequency: AC&HS
Additional Instructions:: Change to q6h if pt on TPN, tube feeding or not eating
Bladder Scan As Directed
Follow Bladder Retention/Intermittent Cath Algorithm?: Yes
PRN if no void in __ hours: 6
Frequency: Per Retention Algorithm
If Bladder Scan Result >: 400
then:: Straight cath
Intake/ Output As Directed
Frequency: Per unit guidelines
Straight Cath As Directed
Frequency: Per Retention Algorithm
Additional Instructions: straight cath as needed per acute urinary retention algorithm for 24 hrs
Additional Instructions: for bladder scan greater than 400 mL
Vital Signs As Directed
Frequency: Per unit guidelines
Weight As Directed
Frequency: Daily
Pulse Ox/spot Check [RESP] Routine
Quantity: 1
Ot Eval And Treat Routine
Pt Eval And Treat Routine
Activity Level: As Tolerated
10/06/24 22:00
Famotidine [Pepcid] 20 mg IV Q48H
Lactulose [Duphalac/Chronulac] 20 grams PO QID
10/06/24 22:45
Apixaban [Eliquis] 5 mg PO BID
10/06/24 23:00
Midodrine [ProAmatine] 10 mg PO TID
10/07/24 01:48
Complete Blood Count/With Diff IN AM
Comprehensive Metabolic Panel IN AM
Glycohemoglobin (HgbA1c) IN AM
10/07/24 06:00
Levothyroxine [Synthroid] 75 mcg PO DAILY@0600
10/07/24 07:30
Insulin Aspart Corrective Low [Novolog Flexpen-Low Resistance] See Protocol SC AC
10/07/24 08:00
Duloxetine Delayed Release [Cymbalta Delayed Release] 30 mg PO DAILY
Liothyronine [Cytomel] 5 microgram PO DAILY
10/08/24 06:00
Complete Blood Count/With Diff IN AM
Comprehensive Metabolic Panel IN AM
10/09/24 06:00
Complete Blood Count/With Diff IN AM
Comprehensive Metabolic Panel IN AM
10/10/24 06:00
Complete Blood Count/With Diff IN AM
Comprehensive Metabolic Panel IN AM
10/11/24 06:00
Complete Blood Count/With Diff IN AM
Comprehensive Metabolic Panel IN AM
10/12/24 06:00
Complete Blood Count/With Diff IN AM
Comprehensive Metabolic Panel IN AM
Abnormal Lab Results
10/06/24 10/06/24 10/06/24
13:26 13:35 14:34
WBC 14.0 H 10^3/uL
(4.8-10.8)
RBC 4.15 L 10^6/uL
(4.20-5.40)
RDW 19.8 H %
(11.5-14.5)
MPV 10.5 H fL
(7.4-10.4)
Abs Immat Gran (auto) 1.0 H 10^3/uL
(0-0.05)
Absolute Neuts (auto) 10.6 H 10^3/uL
(1.4-6.5)
Absolute Lymphs (auto) 0.9 L 10^3/uL
(1.2-3.4)
Absolute Monos (auto) 1.2 H 10^3/uL
(0.1-0.6)
Immature Gran % 7.4 H %
(0-0.5)
Neutrophils % 76.2 H %
(42.2-75.2)
Lymphocytes % 6.7 L %
(20.5-51.1)
PT 29.0 H Sec
(11.4-14.6)
APTT 38.6 H Sec
(23.4-35.0)
Sodium 132 L mmol/L 133 L mmol/L
(135-145) (135-145)
Potassium 5.2 H mmol/L
(3.5-5.1)
Carbon Dioxide 20 L mmol/L
(22-30)
BUN 82 H mg/dl 81 H mg/dl
(7-17) (7-17)
Creatinine 3.0 H mg/dL 3.0 H mg/dL
(0.6-1.0) (0.6-1.0)
Glucose 62 L mg/dl
(70-99)
Lactic Acid
Calcium 7.9 L mg/dl 8.0 L mg/dl
(8.4-10.2) (8.4-10.2)
Total Bilirubin 1.6 H mg/dl
(0.2-1.3)
AST 48 H U/L
(14-36)
Alkaline Phosphatase 142 H U/L
(38-126)
Ammonia < 9 L umol/L
(9-30)
C-Reactive Protein 30.80 H mg/L
(0.0-10.00)
Total Protein 5.2 L g/dl
(6.3-8.2)
Albumin 2.5 L g/dl
(3.5-5.0)
Ur Occult Blood Reflex
Leukocyte Esterase Rfl
Urine RBC
Urine WBC (Reflex)
Urine Bacteria (Reflex)
10/06/24
15:16
WBC
RBC
RDW
MPV
Abs Immat Gran (auto)
Absolute Neuts (auto)
Absolute Lymphs (auto)
Absolute Monos (auto)
Immature Gran %
Neutrophils %
Lymphocytes %
PT
APTT
Sodium
Potassium
Carbon Dioxide
BUN
Creatinine
Glucose
Lactic Acid 2.6 H mmol/L
(0.7-2.0)
Calcium
Total Bilirubin
AST
Alkaline Phosphatase
Ammonia
C-Reactive Protein
Total Protein
Albumin
Ur Occult Blood Reflex 4+ A
(Negative)
Leukocyte Esterase Rfl 1+ A
(Negative)
Urine RBC 60-70 A /HPF
(0-2)
Urine WBC (Reflex) 50-60 A /HPF
(0-5)
Urine Bacteria (Reflex) Moderate A
(Negative)
10/06/24 13:26
10/06/24 14:34
Vital Signs
Initial and Last Documented VS:
Initial Vital Signs
Temp Pulse Resp BP Pulse Ox
97.6 F 110 16 100/53 97
10/06/24 13:08 10/06/24 13:08 10/06/24 13:08 10/06/24 13:08 10/06/24 13:08
Last Documented Vital Signs
Temp Pulse Resp BP Pulse Ox
98.2 F 96 16 114/70 94
10/07/24 18:41 10/07/24 21:30 10/07/24 21:30 10/07/24 20:00 10/07/24 21:30
<Javid Last, DO - Last Filed: 10/06/24 17:43>
Orders/Labs/Results
Orders:
Orders
10/06/24 13:26
Basic Metabolic Panel Urgent
Complete Blood Count/With Diff Urgent
Erythrocyte Sed Rate Urgent
Comment: ADD ON
10/06/24 13:35
Ammonia Urgent
Protime/PTT Urgent
10/06/24 14:19
CT Head W/o Iv Contrast Urgent
Comment:
Reason For Exam: altered mental status
Straight cath- Treatment ONCE
10/06/24 14:20
Add On- LAB Urgent
Tests Added?: pro-bnp, esr/crp
10/06/24 14:21
Electrocardiogram (*1) Urgent
Reason for Study: Shortness of Breath
CR Chest - 2 Views Urgent
Comment:
Reason For Exam: SOB
10/06/24 14:23
CR Knee - Left 1 Or 2 Views Urgent
Reason For Exam: hx septic knee currently on abx
10/06/24 14:34
C-Reactive Protein Urgent
Comment: ADD ON
Comprehensive Metabolic Panel Urgent
NT-proBNP Urgent
Comment: ADD ON
Troponin I Urgent
10/06/24 Dinner
Cholesterol Lowering
At Your Request: Non-Participating
Cholesterol Lowering: Sodium, 2 Gram
10/06/24 15:07
Add On- LAB Urgent
Tests Added?: ESR
10/06/24 15:16
Lactic Acid Q4H
Comment: CANCEL 2nd LACTIC ACID IF 1st LACTIC ACID IS LESS THAN 2
Urinalysis Reflex To Culture Urgent
Date Specimen was Collected: 10/06/24
Time Specimen was Collected: 15:14
Comment: straight cath
Urine Microscopic Reflex Cult Urgent
Blood Culture Q30M
NIKKI Source: Blood/Venous
Specimen Description:
Urine Culture Urgent
NIKKI Source: U
Specimen Description:
Date Specimen was Collected: 10/06/24
Time Specimen was Collected: 15:14
10/06/24 15:45
Blood Culture Q30M
NIKKI Source: Blood/Venous
Specimen Description:
10/06/24 17:26
0.9% Sodium Chloride 500 ml [Nss] 500 ml IV BOLUS
10/06/24 17:34
0.9% Sodium Chloride 500 ml [Nss] 500 ml IV BOLUS
10/06/24 17:53
Vancomycin [Vancocin] 2,000 mg 0.9% Sodium Chloride 500 ml [Nss] 500 ml IV NOW
10/06/24 18:10
Dextrose 50%-Water [Dextrose 50% Syringe] 25 grams .ROUTE .STK-MED ONE
10/06/24 18:11
Dextrose 50%-Water [Dextrose 50% Syringe] 25 grams IV NOW STA
10/06/24 18:36
COVID-19 Antigen Urgent
Source: Nasal Swab
Influenza A+B Rapid Molecular Urgent
NIKKI Source: Nasal Swab
Specimen Description:
10/06/24 19:06
Admit/Transfer Patient As Directed
Co-Sign Provider:
Level of Care: Inpatient admission
Assign to:: ICU
Physician / Group: ting scott
Diagnosis: sepsis conc,pna/septic l knee, hypotension, hypoalbumin,santosh
Reason for Hospitalization: sepsis conc,pna/septic l knee, hypotension, hypoalbumin,santosh
Expected length of stay greater than two midnights?: Yes
ELOS- Estimated Length of Stay in days: 7
I certify the patient meets the requirements for IP care: Yes
10/06/24 19:11
Code Status As Directed
Resuscitation Status: Full Code
10/06/24 19:18
PRN Pain Medication Management As Directed
May give lesser potent ordered pain med per pt: Yes
preference::
Protocol:: Medication orders for pain may be administered in a
manner that supports deferring to patient preference
when the pt is:
- Requesting an ordered lesser potent pain medication.
Least to most potent pain medications are defined
as: acetaminophen < NSAID < tramadol < opioids
(morphine, oxycodone, hydromorphone).
- Requesting a lesser dose of the same medication IF
ORDERED.
- Requesting a less intrusive route of administration
if both routes are prescribed by the provider (PO <
IV).
10/06/24 20:00
0.9% Sodium Chloride 1000 ml [Nss] 1,000 ml IV 100 mls/hr
Albumin Human 25% 100 ml [Flexbumin] 25 grams in 100 ml IV Q8H
10/06/24 20:10
Lactic Acid Q4H
Comment: CANCEL 2nd LACTIC ACID IF 1st LACTIC ACID IS LESS THAN 2
10/06/24 20:45
Acetaminophen [Tylenol] 650 mg PO Q4HPRN PRN
Bisacodyl [Dulcolax] 10 mg RECTAL [id number] PRN
Dextrose 50%-Water [Dextrose 50% Syringe] 12.5 grams IV [id number] PRN
Glucagon [GlucaGen] 1 mg IM PRN PRN
Oxycodone [Roxicodone] 5 mg PO Q6H PRN
Polyethylene Glycol Powder [Miralax] 17 grams PO DAILYPRN PRN
Rifaximin [Xifaxan] 550 mg PO BID
Saccharomyces Boulardii [Florastor] 250 mg PO BID
VANCOMYCIN Pharmacy to Dose [VANCOCIN Pharmacy to Dose] 1 each Pharmacy To Prepare [Call Pharmacy To Prepare] 0 ml IV PER PROTOCOL
10/06/24 20:45
VTE Contraindication Routine
VTE Mechanical Device Contraindication: Medical Contraindication
Pharmocologic Contraindication: Medical Contraindication
Comment: pt on eliquis
Activity As Directed
Activity Level: As Tolerated
Bedside Glucose Monitoring As Directed
Frequency: AC&HS
Additional Instructions:: Change to q6h if pt on TPN, tube feeding or not eating
Bladder Scan As Directed
Follow Bladder Retention/Intermittent Cath Algorithm?: Yes
PRN if no void in __ hours: 6
Frequency: Per Retention Algorithm
If Bladder Scan Result >: 400
then:: Straight cath
Intake/ Output As Directed
Frequency: Per unit guidelines
Straight Cath As Directed
Frequency: Per Retention Algorithm
Additional Instructions: straight cath as needed per acute urinary retention algorithm for 24 hrs
Additional Instructions: for bladder scan greater than 400 mL
Vital Signs As Directed
Frequency: Per unit guidelines
Weight As Directed
Frequency: Daily
Pulse Ox/spot Check [RESP] Routine
Quantity: 1
Ot Eval And Treat Routine
Pt Eval And Treat Routine
Activity Level: As Tolerated
10/06/24 22:00
Famotidine [Pepcid] 20 mg IV Q48H
Lactulose [Duphalac/Chronulac] 20 grams PO QID
10/06/24 22:45
Apixaban [Eliquis] 5 mg PO BID
10/06/24 23:00
Midodrine [ProAmatine] 10 mg PO TID
10/07/24 01:48
Complete Blood Count/With Diff IN AM
Comprehensive Metabolic Panel IN AM
Glycohemoglobin (HgbA1c) IN AM
10/07/24 06:00
Levothyroxine [Synthroid] 75 mcg PO DAILY@0600
10/07/24 07:30
Insulin Aspart Corrective Low [Novolog Flexpen-Low Resistance] See Protocol SC AC
10/07/24 08:00
Duloxetine Delayed Release [Cymbalta Delayed Release] 30 mg PO DAILY
Liothyronine [Cytomel] 5 microgram PO DAILY
10/08/24 06:00
Complete Blood Count/With Diff IN AM
Comprehensive Metabolic Panel IN AM
10/09/24 06:00
Complete Blood Count/With Diff IN AM
Comprehensive Metabolic Panel IN AM
10/10/24 06:00
Complete Blood Count/With Diff IN AM
Comprehensive Metabolic Panel IN AM
10/11/24 06:00
Complete Blood Count/With Diff IN AM
Comprehensive Metabolic Panel IN AM
10/12/24 06:00
Complete Blood Count/With Diff IN AM
Comprehensive Metabolic Panel IN AM
Abnormal Lab Results
10/06/24 10/06/24 10/06/24
13:26 13:35 14:34
WBC 14.0 H 10^3/uL
(4.8-10.8)
RBC 4.15 L 10^6/uL
(4.20-5.40)
RDW 19.8 H %
(11.5-14.5)
MPV 10.5 H fL
(7.4-10.4)
Abs Immat Gran (auto) 1.0 H 10^3/uL
(0-0.05)
Absolute Neuts (auto) 10.6 H 10^3/uL
(1.4-6.5)
Absolute Lymphs (auto) 0.9 L 10^3/uL
(1.2-3.4)
Absolute Monos (auto) 1.2 H 10^3/uL
(0.1-0.6)
Immature Gran % 7.4 H %
(0-0.5)
Neutrophils % 76.2 H %
(42.2-75.2)
Lymphocytes % 6.7 L %
(20.5-51.1)
PT 29.0 H Sec
(11.4-14.6)
APTT 38.6 H Sec
(23.4-35.0)
Sodium 132 L mmol/L 133 L mmol/L
(135-145) (135-145)
Potassium 5.2 H mmol/L
(3.5-5.1)
Carbon Dioxide 20 L mmol/L
(22-30)
BUN 82 H mg/dl 81 H mg/dl
(7-17) (7-17)
Creatinine 3.0 H mg/dL 3.0 H mg/dL
(0.6-1.0) (0.6-1.0)
Glucose 62 L mg/dl
(70-99)
Lactic Acid
Calcium 7.9 L mg/dl 8.0 L mg/dl
(8.4-10.2) (8.4-10.2)
Total Bilirubin 1.6 H mg/dl
(0.2-1.3)
AST 48 H U/L
(14-36)
Alkaline Phosphatase 142 H U/L
(38-126)
Ammonia < 9 L umol/L
(9-30)
C-Reactive Protein 30.80 H mg/L
(0.0-10.00)
Total Protein 5.2 L g/dl
(6.3-8.2)
Albumin 2.5 L g/dl
(3.5-5.0)
Ur Occult Blood Reflex
Leukocyte Esterase Rfl
Urine RBC
Urine WBC (Reflex)
Urine Bacteria (Reflex)
10/06/24
15:16
WBC
RBC
RDW
MPV
Abs Immat Gran (auto)
Absolute Neuts (auto)
Absolute Lymphs (auto)
Absolute Monos (auto)
Immature Gran %
Neutrophils %
Lymphocytes %
PT
APTT
Sodium
Potassium
Carbon Dioxide
BUN
Creatinine
Glucose
Lactic Acid 2.6 H mmol/L
(0.7-2.0)
Calcium
Total Bilirubin
AST
Alkaline Phosphatase
Ammonia
C-Reactive Protein
Total Protein
Albumin
Ur Occult Blood Reflex 4+ A
(Negative)
Leukocyte Esterase Rfl 1+ A
(Negative)
Urine RBC 60-70 A /HPF
(0-2)
Urine WBC (Reflex) 50-60 A /HPF
(0-5)
Urine Bacteria (Reflex) Moderate A
(Negative)
10/06/24 13:26
10/06/24 14:34
Vital Signs
Initial and Last Documented VS:
Initial Vital Signs
Temp Pulse Resp BP Pulse Ox
97.6 F 110 16 100/53 97
10/06/24 13:08 10/06/24 13:08 10/06/24 13:08 10/06/24 13:08 10/06/24 13:08
Last Documented Vital Signs
Temp Pulse Resp BP Pulse Ox
98.2 F 96 16 114/70 94
10/07/24 18:41 10/07/24 21:30 10/07/24 21:30 10/07/24 20:00 10/07/24 21:30
<Bridget Chin PA-C - Last Filed: 10/08/24 00:31>
MDM/Problems Addressed
Differential Diagnosis Includes:
Not limited to: Sepsis, urosepsis, septic arthritis; cardiac arrhythmia, acute CHF exacerbation, UTI, acute coronary syndrome, etc.
MDM/Problems Addressed:
79 year old female presenting with weakness and altered mental status. Recent hospitalization at [facility] for septic arthritis of left knee s/p washout and IV abx currently on PO ciprofloxacin. Patient arrives afebrile with stable vital
signs. Exam as above. Clinically appears very weak although no focal deficits. Patient appears to be struggling to respond secondary to weakness. Significant edema noted in b/l upper and lower extremities. Healing incision of right knee with
surrounding erythema and crusting although does not seem worse form prior based on pictures. Concern for underlying infectious component. Will attempt to obtain records from [place]. Patient will require admission.
Labs noted: Leukocytosis noted. Acute on chronic renal insufficiency - cr of 3.0. Lactic of 2.6. Ammonia <9 - do not suspect hepatic encephalopathy. Minimal elevation in CRP. Urine appears infected. CXR with possible pneumonia vs. atelectasis. Knee
xray without acute findings. Head CT without acute findings.
Patient clinically septic. Source of infection pneumonia vs UTI vs persistent knee infection. Will fluid resuscitate and start broad spectrum IV vancomycin. Patient with multiple abx allergies. Patient accepted to hospitalist service. Patient did
become borderline hypotensive in ED and will be admitted to ICU.
Chronic conditions affecting care:
Atrial fibrillation on Eliquis, congestive heart failure, hypertension
Acute Exacerbation and/or Progression of Chronic Illness:
Sepsis, acute UTI, acute on chronic renal insuffieciency
<Bridget Chin PA-C - Last Filed: 10/08/24 00:31>
*EKG
Interpreted by ED Provider?: Yes
EKG Intrepretation Date: 10/06/24
Interpretation: abnormal
Comparison EKG: changes noted
Heart Rate: 101
Rate: tachycardiac
Rhythm: a-fib
[place]: normal axis
Interval: normal QT interval
QRS Pattern: normal QRS
Ischemia: non-specific ST changes
*Injection Molding Supervisor Interpretation
Rate: tachycardiac
Interpretation: abnormal
Heart Rate: 104
Rhythm: a-fib
<Javid Last DO - Last Filed: 10/06/24 17:43>
*Radiology
Radiology exam reviewed: radiology read reviewed
*Pulse Oximetry
Patient hypoxic: no
*Critical Care Note
Total Time (30-74mins, 75-104mins- exclusive of procedures): 32
<Bridget Chin PA-C - Last Filed: 10/08/24 00:31>
Patient Management
Discussion with other providers: Hospitalist
Escalation/DeEscalation of care consider admission/obs:
Septic - admit for IV abx, fluid resucitation
ED Attending Note
<Bridget Chin PA-C - Last Filed: 10/08/24 00:31>
-
Portions of this chart may have been created with voice recognition software.� Occasional wrong word or��sound alike� substitutions may have occurred due to the inherent limitations of voice recognition software.
<Javid Last, DO - Last Filed: 10/06/24 17:43>
ED Attending Note
Patient seen and examined by attending physician: Yes
I performed the substantive portion of visit, reviewed & personally made and approve the management plan that is documented in note by myself or ABIGAIL.: Yes
ED Attending Note:
seen with Pa, agree with a/p, complex pmh-confusion, infected joint, SANTOSH
labs noted
ivf
antibiotics
admission
old records requested
Discharge Plan
Departure
Patient Disposition: Admit
Date of Disposition: 10/06/24
Time of Disposition: 17:36
Presentation/result/management discussed w/ accepting MD/DO: Hospitalist
Discharge Problem:
Sepsis
Interventions
Interventions:
*Risk Screen - Suicide Last Done: 10/06/24 16:11
*Neglect/Abuse Screening Last Done: 10/06/24 16:11
ED- Fall Risk Assessment Last Done: 10/06/24 20:42
*ED COVID-19 Vaccine History Last Done: 10/06/24 21:00
*Nursing Disposition Last Done: 10/06/24 20:42
ED- Pulmonary Assessment Last Done: 10/06/24 17:52
ED- Neurological Assessment Last Done: 10/06/24 13:52
Discharge Date and Time
Discharge Date/Time: 10/06/24 20:43
[2024-10-06 15:05] LABS: ALT (SGPT) 27 U/L (0-35); AST (SGOT) 48 U/L (14-36); Albumin 2.5 g/dl (3.5-5.0); Alkaline Phosphatase 142 U/L (38-126); Blood Urea Nitrogen 81 mg/dl (7-17); Carbon Dioxide 22 mmol/L (22-30); Chloride 101 mmol/L (98-107); Estimated Creatinine Clearance 17 ml/min; Glucose 62 mg/dl (70-99); Potassium 5.2 mmol/L (3.5-5.1); Sodium 133 mmol/L (135-145); Total Bilirubin 1.6 mg/dl (0.2-1.3); Total Protein 5.2 g/dl (6.3-8.2); eGFR 15.53
[2024-10-06 15:28] LABS: Urine Albumin Trace (Neg - Trace); Urine Bilirubin Negative (Negative); Urine Character Clear (Clear); Urine Color Yellow; Urine Glucose Negative (Negative); Urine Ketone Negative (Negative); Urine Leukocyte 1+ (Negative); Urine Nitrite Negative (Negative); Urine Occult Blood 4+ (Negative); Urine Specific Gravity 1.015 (<1.030); Urine Urobilinogen Negative (Neg - 1+)
[2024-10-06 15:30] LABS: NT-proBNP 1140 pg/ml; Troponin I 0.017 ng/ml
[2024-10-06 15:37] LABS: Lactic Acid 2.6 mmol/L (0.7-2.0); Urine Hyaline Cast 0-2 /LPF (0-2)
[2024-10-06 15:38] LABS: Urine Bacteria Moderate (Negative); Urine Red Blood Cell 60-70 /HPF (0-2); Urine White Cell 50-60 /HPF (0-5)
[2024-10-06 16:42] LABS: Erythrocyte Sed Rate 17 mm/hour (0-20)
[2024-10-06 16:52] LABS: Glucose - Point of Care 75 mg/dl (70-99)
[2024-10-06] MEDS: NSS 500 IV ×2 (17:39→17:40)
--- NOTE | 2024-10-06 17:55 | HPS.HSE ---
Family Physician
-
Family Physician: Esteban Baum
Chief Complaint
-
Decreased eating, weakness, altered mental status
History of Present Illness
79-year-old female complaining of weakness, decreased appetite, altered mental status. The daughter Maame states she has been at [facility] for rehab for approximately 1 week they have not been giving her the xifaxin 550 mg daily for the past 3 days for
her MAZARIEGOS cirrhosis/history hepatic encephalopathy. The patient's daughter reports over the past few days she has not been acting herself she has had loss of appetite and seems somewhat altered. The patient reports that she does feel sick. She
denies fever, chills, chest pain, palpitations, cough, shortness of breath, headache, abdominal pain, nausea, vomiting, diarrhea, urinary symptoms. She had an admission to [facility] early August into early September secondary to septic
prosthetic left knee with hospital course complicated by acute CHF treated with spironolactone 25 mg daily due to history of orthostatic hypotension and a UTI. Her left knee grew Pseudomonas she had washout on September 15 followed by Vancomycin
which was stopped and changed to Levaquin on 09/19 then changed to Cipro for 6-week course. The patient also grew Klebsiella oxytoca in her urine which was being treated by ciprofloxacin also. ID was avoiding cefepime and meropenem per family
demand due to concern they were causing ARF and altered mental status. She currently has +3 edema to bilateral legs thighs and arms with bolus fluid filled areas to arms. She has a linear incision to her left knee with open area at the distal
aspect that was unable to be closed secondary to edema. There is circumferential erythema to the left knee and inner medial aspect of the thigh which the daughter states has significantly improved.
She was recently discharged approximately 1 week ago and sent to [facility]. She has past medical history of A-fib paroxysmal on Eliquis, chronic diastolic CHF preserved EF, orthostatic hypotension, HTN, HLD, adrenal insufficiency Dx
April 2024 on chronic prednisone 5 mg daily, hypothyroidism, GERD, depression, class II obesity, EDELMIRA noncompliant with CPAP, Current nonambulatory status since August 2024
, UTIs hepatic encephalopathy�MAZAREIGOS cirrhosis April 2023, osteoporosis, compression fracture L1 with chronic back pain on chronic as needed opiates, left knee replacement 2013 [facility], septic left knee with Pseudomonas August 2024
status post washout 09/15/2025 [facility], UTI growing Klebsiella oxytoca August 2025, ARF from suspected antibiotics did receive temporary dialysis x 3-4 sessions August 2025 at [facility] with discharge creatinine of 2.4 on
09/29/2024pituitary cyst 2014 History of adrenal crisis 2014 S/P pituitary cyst resection
Medical History
Past Medical History
Past Medical History: Reports Other
Additional Past Medical History:
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
UTI with Klebsiella oxytoca August 2024 [place]
SANTOSH/ARF secondary to cefepime/meropenem had emergent dialysis 3-4 episodes August 2024 [facility]
A-fib paroxysmal on dialysis
Chronic diastolic CHF
HTN
HLD
Adrenal insufficiency, Hx adrenal crisis 2013
Hypothyroidism
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
GERD
Depression
UTIs
Hepatic encephalopathy 04/2024
MAZARIEGOS cirrhosis
Class II obesity
Nonmobile status stands to transfer since August 2024
Osteoporosis
Chronic L1 compression fracture on chronic as needed oral opiates
Past Surgical History: Reports Other
Additional Past Surgical History:
Tonsillectomy
Status post left knee washout 09/15/2024 [facility]
Prosthetic left knee originally placed by Dr. Annelise Carcamo 02/05/2015 [facility]
Prosthetic right knee done by same physician above 1 02/05/2015
Social History
Tobacco: Non-smoker
Alcohol: Occasional
Drug: None
Personal:
Living: With Family
Family History
Family History: Not pertinent
Allergies / Home Medications
Allergies reflects when Allergies were last updated in [facility].
Home Medications with original date entered in [facility]
Allergy/Medication List:
Allergies
Allergy/AdvReac Type Severity Reaction Status Date / Time
amlodipine Allergy Swelling Verified 05/01/24 21:36
meropenem Allergy tremors Verified 05/01/24 21:36
Penicillins Allergy Hives Verified 02/28/24 19:34
Home Medications
liothyronine 5 mcg tablet 5 mcg PO DAILY Thyroid 10/17/19
rifaximin 550 mg tablet (Xifaxan) 550 mg PO BID Liver Issues 10/17/19
bumetanide 1 mg tablet 1 mg PO DAILY Fluid Retention/Swelling 11/12/23
prednisone 5 mg tablet 5 mg PO DAILY Anti-Inflammatory 12/14/23
levothyroxine 75 mcg tablet 75 mcg PO DAILY Thyroid 02/29/24
alendronate 70 mg tablet 70 mg PO MO osteoporosis 05/01/24
apixaban 2.5 mg tablet (Eliquis) 5 mg PO BID Blood Clot Prevention/Tx 05/01/24
bisoprolol fumarate 5 mg tablet 10 mg PO DAILY Blood Pressure 05/01/24
diltiazem HCl 120 mg capsule,extended release 24 hr (Cartia XT) 120 mg PO DAILY Arrhythmia 05/01/24
spironolactone 25 mg tablet 25 mg PO DAILY Fluid Retention/Swelling 05/01/24
Saccharomyces boulardii 250 mg capsule 250 mg PO BID 10/06/24
ciprofloxacin HCl 750 mg tablet 750 mg PO DAILY 10/06/24
duloxetine 30 mg capsule,delayed release sprinkle 30 mg PO DAILY 10/06/24
lactulose 20 gram/30 mL oral solution 30 ml PO QID 10/06/24
midodrine 10 mg tablet 10 mg PO TID 10/06/24
oxycodone 5 mg tablet 5 mg PO Q6H PRN pain 10/06/24
Review of Systems
-
History Source: Patient and Family (Daughter Ethel at bedside POA)
A 12 point ROS was completed and negative except as noted: Yes
Constitutional: Reports Fatigue and Other (Patient oriented to name and daughter but is confused about any of her history currently); Denies Fever or Chills
EENT: Denies Sore Throat or Runny Nose
Respiratory: Denies Cough or Trouble Breathing
Cardiac: Denies Chest Pain, Diaphoresis or Palpitations
Abdomen/GI: Denies Abdominal Pain, Nausea, Vomiting, Diarrhea, Constipated or Bloody Stools
: Denies Dysuria, Frequency or Flank Pain
Musculoskeletal: Reports Edema ( linear incision to her left knee with open area at the distal aspect that was unable to be closed secondary to edema. There is circumferential erythema to the left knee and inner medial aspect of the thigh which the
daughter states has significantly improved.); Denies Joint Pain
Skin: Denies Itching or Rash
Neurological: Reports Weakness (Generalized); Denies Dizzy or Headache
Endocrine: Reports No Symptoms
Hematologic/Lymphatic: Reports No Symptoms
Psych: Reports Calm
Physical Exam
Vital Signs
Vital Signs
Temp Pulse Resp BP Pulse Ox
97.6 F 107 14 90/58 95
10/06/24 13:08 10/06/24 17:23 10/06/24 17:23 10/06/24 17:26 10/06/24 16:45
Physical Exam
General: Comfortable, Conversant, Morbidly Obese and Other (Oriented to name and her daughter Ethel but is confused to any of her history and review of systems); No Pain or Fever
HEENT: NormoCephalic, Anicteric, Moist mucous membranes, PERRLA, [place] Conjunctivae, No Ptosis and Neck Nontender
Respiratory: Clear; No Wheezes, Rales or Rhonchi
Cardiac: S1/S2, Regular Rhythm and Peripheral Edema ( linear incision to her left knee with open area at the distal aspect that was unable to be closed secondary to edema. There is circumferential erythema to the left knee and inner medial aspect
of the thigh which the daughter states has significantly improved.); No Murmur, Rub or Gallop
Breast: Deferred by me
GI: Soft, Non Tender, Normal Bowel Sounds, Distended (Subtle edema to abdomen concern for ascites) and Other
Rectal: Deferred by Provider
Genito-urinary: Deferred by me
Musculoskeletal: No Clubbing, No Cyanosis, Edema, Left Upper Extremity (+2 edema with left forearm skin tear), Edema, Right Upper Extremity (+2 edema with fluid-filled blister right forearm), Edema, Left Lower Extremity ( linear incision to her left
knee with open area at the distal aspect that was unable to be closed secondary to edema. +3 edema foot to thigh) and Edema, Right Lower Extremity (+2-3 edema foot to upper thigh and abdomen)
Skin: Warm, Dry and Other (Multiple bruises to bilateral hands, right arm with fluid-filled blister left arm skin tear); No Rash
Neuro: Awake, Alert (Oriented to name and daughter only) and No Sensory Deficits; No Slurred Speech, Facial Droop, Tremors or Sedated
Psych: Calm
Laboratory Results
-
10/06/24 13:26
10/06/24 14:34
Laboratory Results
PT 29.0 Sec (11.4-14.6) H 10/06/24 13:35
INR 2.74 10/06/24 13:35
APTT 38.6 Sec (23.4-35.0) H 10/06/24 13:35
Lactic Acid 2.6 mmol/L (0.7-2.0) H 10/06/24 15:16
Total Bilirubin 1.6 mg/dl (0.2-1.3) H 10/06/24 14:34
AST 48 U/L (14-36) H 10/06/24 14:34
ALT 27 U/L (0-35) 10/06/24 14:34
Alkaline Phosphatase 142 U/L (38-126) H 10/06/24 14:34
Troponin I 0.017 ng/ml 10/06/24 14:34
Data Reviewed
-
Lab Data: Labs Reviewed by me
Old Records: Reviewed (Reviewed patient's portal from [facility] including consults and discharge notes)
Impression/Plan
-
IMPression/plan:
Admit to ICU
#Sepsis secondary to possible pneumonia versus septic left knee vs UTI
#UTI with Klebsiella oxytoca August 2024 [place]
#Hx adrenal insufficiency on oral steroids
, HR 107 on 95% RA, 97.6F
WBC 14 with left shift, lactic acid 2.6,
- follow lactic acid, blood cultures x 2
1 L NSS bolus given in ER, continue IV NSS 100 cc/h
-Consult Infectious disease(ID at [place] was avoiding meropenem and cefepime due to reported concern for ARF and encephalopathy
-IV vancomycin, IV Levaquin
-Stress dose steroids
-Patient has been on ciprofloxacin 750 mg daily since 09/20/2024 this was switched from prior IV vancomycin due to Pseudomonas and joint and Klebsiella oxytoca and urine
Patient's daughter is refusing IV vancomycin as she is concerned this also might have caused her SANTOSH/ARF however in review of the patient's note that she provided me the patient was on vancomycin and only changed to Levaquin due to knee growing
Pseudomonas and urine growing Klebsiella oxytoca
CXR: Left basilar airspace opacity may reflect combination of pleural effusion and atelectasis or pneumonia
#Acute hypotension secondary to sepsis/HTN�benign/orthostatic hypotension
#Hx adrenal insufficiency on oral steroids
1 L NSS bolus given in ER
-patient on home prednisone 5 mg daily
-Will give stress dose Hydrocortisone 50 mg every 8 hours
-HOLD bisoprolol fumarate 10 mg daily
-Continue midodrine 10 mg p.o. 3 times daily
#Third spacing secondary to Hypoalbuminemia
-Patient with bullous areas to arms secondary to edema will apply Tubigrip's to arms and legs
-Albumin level 2.5
-Albumin 25 g every 8 hours x 24 hours
#Hx septic arthritis left Prosthetic knee with small suprapatellar joint effusion cultures at [place] per portal grew Pseudomonas
Recent admission early August to early September 2024 [facility] for septic knee
CRP 30.8
-Obtain records from [facility]
Washout of knee was on 09/15/2024 with debridement
-Patient was initially on vancomycin which was changed to ciprofloxacin 750 mg daily since 09/20/2024
X-ray left knee: Total knee arthroplasty hardware without overt complications
Small suprapatellar joint effusion no acute fractures or dislocations
#SANTOSH sepsis/hypotension
#Hyperkalemia
-Had dialysis emergent 3-4 sessions at [facility]
Creatinine 3 prior 2.4 on Sep 29, 2024 per patient portal on phone epic ( baseline 1.29 April 2024 baseline appears to be 0.8)
-I/O, daily weight
-Bladder scan
-HOLD spironolactone 25 mg daily, Bumex 1 mg daily
-Consult Nephro
#Acute hypoglycemia
Blood sugar 62, Accu-Chek 75
-Will give patient food and drink
-Continue Accu-Cheks with SSI LOW, with dextrose as needed blood sugar less than 70
-IV dextrose 25 g now given in ER for hypoglycemia
#Abdominal ascites�mild
#MAZARIEGOS cirrhosis
#Hx hepatic encephalopathy 05/15/2024
-Patient Xifaxan had not been given for the last [address] [facility]
-Resume Xifaxan 550 mg twice daily
-Continue lactulose 30 mL p.o. 4 times daily(had bowel movement today 10/06/2024 for )
-Check abdominal ultrasound-to assess fluid level
# [id number]
-Continue Eliquis 5 mg twice daily
- HOLD cardia XT 120 mg
#Chronic diastolic CHF-no acute exacerbation
I/O, daily weight
BNP 1140 prior history 2700
MARIA LUISA 11/14/2022: EF 60 to 65%, normal LV S LVSF, no wall abnormalities, inferior basal akinesis, thickened mildly aortic valve leaflets/mitral valve leaflets, mild MR, minimal TR no pulm HTN
#History of pituitary cyst 2013
#History of adrenal crisis 2013 S/P pituitary cyst resection
#EDELMIRA noncompliant with CPAP
#HLD
-No reported meds
#Hypothyroidism
-Continue levothyroxine 75 mcg p.o. daily
-Continue liothyronine 5 mcg p.o. daily
#GERD
-Add Pepid 20 mg daily
#Depression hx
-Continue duloxetine 30 mg daily
#Osteoporosis
-Patient on alendronate 70 mg p.o. Mondays
#Class II obesity due to excess calorie consumption�fluid retention�BMI 38.7
Affects all aspects of care
Weight loss recommended
#Chronic compression fracture L1 lumbar vertebrae
-Continue oxycodone 5 mg every 6 hours as needed pain with patient's lactulose 30 mL 4 times daily
#Current nonambulatory status since August 2024
DVT prophylaxis
-Continue RISK MANAGEMENT CONSULTANT Eliquis
Full code per daughter Ethel WINSLOW [phone]
[2024-10-06] MEDS: DEXTROSE 50% SYRINGE 25 GRAMS IV (18:11)
[2024-10-06 19:00] LABS: COVID-19 Antigen Negative (Negative)
--- NOTE | 2024-10-06 19:05 | W.PN.UPDATE ---
Update Note
Progress Note Update
This is an addendum to the H&P written by Jigna Lamb on 10/06/2024.� Patient seen and examined independently with PROJECT TECHNICIAN.
79-year-old female past medical history of left knee prosthetic knee surgery in 2014, recent prosthetic left knee septic arthritis treated with ciprofloxacin, paroxysmal atrial fibrillation, diastolic heart failure, Ngo cirrhosis, hepatic
encephalopathy, adrenal insufficiency, hypertension, hypothyroidism, anxiety/depression, obesity, presenting for altered mental status and weakness.
Patient was recently admitted to [place] from early August until early September secondary to prosthetic knee infection status post washout with cultures growing Klebsiella and Pseudomonas as well as CHF exacerbation treated with diuresis and
UTI.� She also developed SANTOSH and neurotoxicity from cefepime requiring temporary dialysis.� She was treated with ciprofloxacin for the knee infection.� She was discharged 2 weeks ago.
Patient hypotensive, tachycardic with leukocytosis.� Clinically septic.
On examination left knee incision does appear red and crusted although this is improved from previously.� Patient has extensive third spacing.� Some ascites on examination
Labs show SANTOSH with creatinine of 3, potassium of 5.2.� Lactic acid 2.6.� Leukocytosis.� Blood sugar of 62.� Creatinine on discharge was 2.14.
Chest x-ray shows left basilar airspace opacity which may reflect pleural effusion/atelectasis or pneumonia.� Knee x-ray shows total knee arthroplasty hardware without overt complication.� Small suprapatellar joint effusion.
Patient with metabolic encephalopathy/sepsis secondary to possible left basilar pneumonia versus persistent septic arthritis of prosthetic left knee versus UTI.
Also concern for SANTOSH/hyperkalemia seems to be prerenal in the setting of sepsis.� Hypoglycemia likely secondary to sepsis.
Check blood cultures.� Check COVID and flu.� Check abdominal ultrasound to evaluate for ascites.� IV fluids although will have to be cautious given history of heart failure.� Patient would likely benefit from albumin infusion. Nephrology consulted.��
Vancomycin/Levaquin.� Patient cannot tolerate cephalosporins as well as meropenem.� Will need to obtain records from [place].� ID consulted.
Stress dose steroids given history of adrenal insufficiency on prednisone.
[2024-10-06] MEDS: FLEXBUMIN 100 IV (19:20)
--- NOTE | 2024-10-06 19:36 | EDRN ---
Report received, introduced myself to patient, was going to start Vancomycin, daughter reports patient had a bad reaction to it before and was very confused when they gave it to her, informed the PA who ordered it, will hold, also let the
hospitalist known who ordered it for her to continue when she is admitted and will add to allergy list.
--- NOTE | 2024-10-06 20:22 | EDRN ---
After speaking with SERJIO Benito who admitted patient and the patient's daughter, patient's daughter is pretty adamant on not giving the vancomycin, informed SERJIO Benito who said ok, gave report to ICU and nurse upstairs aware of the situation as well
[2024-10-06 20:26] LABS: Lactic Acid 2.2 mmol/L (0.7-2.0)
--- NOTE | 2024-10-06 20:52 | W.PN.SEPSIS ---
Sepsis
Vital Signs
Temp Pulse Resp BP Pulse Ox
97.6 F 87 14 85/65 95
10/06/24 13:08 10/06/24 20:15 10/06/24 20:15 10/06/24 20:00 10/06/24 20:15
Physical Exam
Physical Exam:
A focused exam was performed after fluid resuscitation.
Capillary Refill
Bilateral Upper Extremity:
[place] Time: Less than 3 sec
Bilateral Lower Extremity:
[place] Time: Less than 3 sec
Pulse Evaluation
Bilateral Radial:
Pulse Evaluation: Present
Bilateral Dorsalis Pedis:
Pulse Evaluation: Present
--- NOTE | 2024-10-06 21:00 | PTCARENOTE ---
rec`d pt from ED at 2100. pt knows name and , has oriented conversations. just can be forgetful at times. a fib on monitor. HR 70s-low 100s. +4 lower extrem pitting edema. +3 upper extrem edema. rt AC 18 flushed and patent. left upper arm midline
placed by IV team. wounds as charted. clear lung sounds throughout. dim at the bases. RA, POX 96%. purwick placed. left arm and left leg wound dressings changed. sacral foam applied for protection. family at [facility]. call mccall in reach, safe
environment maintained. daughter amber noted to reach out to her at anytime if needed.
[2024-10-06 21:31] LABS: Glucose - Point of Care 72 mg/dl (70-99)
[2024-10-06] MEDS: NSS 1000 IV (22:22)
[2024-10-06] MEDS: ELIQUIS 5 MG PO (23:07)
[2024-10-06] MEDS: DUPHALAC/CHRONULAC 20 GRAMS PO (23:07)
[2024-10-06] MEDS: NSS (PRESERVATIVE FREE) 8 ML IV (23:08)
[2024-10-06] MEDS: FLORASTOR 250 MG PO (23:08)
[2024-10-06] MEDS: XIFAXAN 550 MG PO (23:08)
[2024-10-06] MEDS: PEPCID 20 MG IV (23:08)
[2024-10-06] MEDS: ProAmatine 10 MG PO (23:08)
[2024-10-07] VITALS (16 sets, daily range): BP systolic 84–114; BP diastolic 45–84; PULSE 90; O2SAT 98; BMI 37.9
[2024-10-07] MEDS: LEVAQUIN 150 IV (00:32)
--- NOTE | 2024-10-07 01:00 | PTCARENOTE ---
pt reassessed. no changes in pt assessment. call mccall in reach.
[2024-10-07 02:05] LABS: Hematocrit 32.2 % (37.0-47.0); Hemoglobin 10.6 g/dL (12.0-16.0); Mean Corp Hgb Conc. 32.9 g/dL (33.0-37.0); Mean Corpuscular Hgb 30.5 pg (27.0-31.0); Mean Corpuscular Volume 92.5 fL (81.0-99.0); Mean Platelet Volume 10.8 fL (7.4-10.4); Platelet Count 172 10^3/uL (130-400); Red Blood Cell Count 3.48 10^6/uL (4.20-5.40); Red Cell Dist. Width 19.3 % (11.5-14.5)
[2024-10-07 02:09] LABS: Lactic Acid 2.6 mmol/L (0.7-2.0)
[2024-10-07 02:20] LABS: ALT (SGPT) 23 U/L (0-35); AST (SGOT) 38 U/L (14-36); Albumin 2.4 g/dl (3.5-5.0); Alkaline Phosphatase 117 U/L (38-126); Blood Urea Nitrogen 74 mg/dl (7-17); Calcium 7.7 mg/dl (8.4-10.2); Carbon Dioxide 19 mmol/L (22-30); Chloride 103 mmol/L (98-107); Estimated Creatinine Clearance 19 ml/min; Glucose 103 mg/dl (70-99); Magnesium 2.2 mg/dl (1.6-2.3); Sodium 136 mmol/L (135-145); Total Bilirubin 1.8 mg/dl (0.2-1.3); Total Protein 4.7 g/dl (6.3-8.2); eGFR 17.62
[2024-10-07 03:27] LABS: Anisocytosis 1+; Basophilic Stippling Occasional; Normal RBC Morphology No; Polychromasia Occasional; Target Cells 1+; Toxic Granulation 1+
[2024-10-07 03:29] LABS: % Basophils 0.4 % (0-2); % Immature Granulocytes 5.9 % (0-0.5); % Lymphocytes 5.3 % (20.5-51.1); % Monocytes 6.1 % (1.7-9.3); % Neutrophils 81.3 % (42.2-75.2); Absolute Eosinophils 0.1 10^3/uL (0-0.7); Absolute Immature Granulocytes 0.6 10^3/uL (0-0.05); Absolute Lymphocytes 0.5 10^3/uL (1.2-3.4); Absolute Monocytes 0.6 10^3/uL (0.1-0.6); Absolute Neutrophils 8.1 10^3/uL (1.4-6.5); Nucleated Red Blood Cells % 0 %; Ovalocytes 1+
[2024-10-07] MEDS: FLEXBUMIN 100 IV ×2 (04:26→12:12)
[2024-10-07] MEDS: NSS 1000 IV (05:56)
[2024-10-07] MEDS: SYNTHROID 75 MCG PO (05:57)
--- NOTE | 2024-10-07 06:23 | PTCARENOTE ---
pt reassessed. no changes in pt assessment. call mccall in reach. purwick and pads changed.
[2024-10-07 06:36] LABS: Lactic Acid 2.1 mmol/L (0.7-2.0)
--- NOTE | 2024-10-07 07:24 | CON.INTV ---
Consultation
Consultation Request
Date/Time Consultation Requested: 10/07/24
Date/Time Consultation Performed: 10/07/24
Performing Provider: Kenny
Reason for Consultation: Sepsis
Medical History
-
History of Present Illness:
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
status. Per family, patient was completing rehab following recent admission at [facility] for septic prosthetic left knee. She had notably grown Pseudomonas in her wound culture and grew Klebsiella in her urine for which she was treated with
antibiotics. She has a history of Mazariegos cirrhosis with hepatic encephalopathy but has not been able to take her medications in the past 3 days. On arrival she has white count of 14.0, lactate 2.6, potassium 5.2, creatinine 3.0 (baseline 1.3-1.4),
she is placed on IV antibiotics. She is otherwise hemodynamically stable, not requiring pressors. She is admitted to ICU for presumed sepsis w/o shock.
Past Medical History
Past Medical History: Other (see list below)
Social History
Tobacco: Non-smoker
Alcohol: None
Drug: None
Family History
Family History: Reviewed & Not Pertinent
Allergies / Home Medications
Allergies
Allergy/AdvReac Type Severity Reaction Status Date / Time
amlodipine Allergy Swelling Verified 05/01/24 21:36
meropenem Allergy tremors Verified 05/01/24 21:36
Penicillins Allergy Hives Verified 02/28/24 19:34
Home Medications
�Medication �Instructions �Recorded �Confirmed �Last Taken �Type
liothyronine 5 mcg tablet 5 mcg PO DAILY Thyroid 10/17/19 10/06/24 05/01/24 History
rifaximin 550 mg tablet (Xifaxan) 550 mg PO BID Liver Issues 10/17/19 10/06/24 05/01/24 History
bumetanide 1 mg tablet 1 mg PO DAILY Fluid 11/12/23 10/06/24 05/01/24 History
Retention/Swelling
prednisone 5 mg tablet 5 mg PO DAILY Anti-Inflammatory 12/14/23 10/06/24 05/01/24 History
levothyroxine 75 mcg tablet 75 mcg PO DAILY Thyroid 02/29/24 10/06/24 05/01/24 History
alendronate 70 mg tablet 70 mg PO MO osteoporosis 05/01/24 10/06/24 04/30/24 History
apixaban 2.5 mg tablet (Eliquis) 5 mg PO BID Blood Clot 05/01/24 10/06/24 05/01/24 History
Prevention/Tx
bisoprolol fumarate 5 mg tablet 10 mg PO DAILY Blood Pressure 05/01/24 10/06/24 05/01/24 History
diltiazem HCl 120 mg 120 mg PO DAILY Arrhythmia 05/01/24 10/06/24 05/01/24 History
capsule,extended release 24 hr
(Cartia XT)
spironolactone 25 mg tablet 25 mg PO DAILY Fluid 05/01/24 10/06/24 05/01/24 History
Retention/Swelling
Saccharomyces boulardii 250 mg 250 mg PO BID 10/06/24 10/06/24 Unknown History
capsule
ciprofloxacin HCl 750 mg tablet 750 mg PO DAILY 10/06/24 10/06/24 Unknown History
duloxetine 30 mg capsule,delayed 30 mg PO DAILY 10/06/24 10/06/24 Unknown History
release sprinkle
lactulose 20 gram/30 mL oral 30 ml PO QID 10/06/24 10/06/24 Unknown History
solution
midodrine 10 mg tablet 10 mg PO TID 10/06/24 10/06/24 Unknown History
oxycodone 5 mg tablet 5 mg PO Q6H PRN pain 10/06/24 10/06/24 Unknown History
Review of Systems
-
History Source: Patient
All other systems: Negative unless noted
Vitals / Labs / Diagnostic Testing
Vital Signs
Temp Pulse Resp BP Pulse Ox
97.5 F 88 14 101/58 94
10/07/24 03:20 10/07/24 04:30 10/07/24 04:30 10/07/24 04:00 10/06/24 23:30
Lab Data
10/07/24 01:48
10/07/24 01:48
Laboratory Results
10/06/24
13:35
PT 29.0 H
INR 2.74
APTT 38.6 H
Microbiology
10/06/24 18:36 Nasal Swab Influenza Types A & B (TRISTAN) - Final
Negative for Influenza A & B, NAAT
Negative results must be combined with clinical observations
and patient history.
Nucleic Acid Amplification test (NAAT)performed on the
IT[employer] platform.
Diagnostic Testing:
Physical Exam
-
HEENT: Normocephalic, Anicteric and Moist Mucous Membranes
Cardiovascular: S1/S2, Regular Rhythm and Peripheral Edema (3+ with skin changes)
Respiratory: Clear (decreased overall) and Non-Labored Respirations
GI: Soft, Distended (obese) and Non Tender
Neurology: Awake, Alert, Oriented and No Motor Deficits
Skin: Warm, Dry and Good Color
General: Comfortable and Other (NAD)
Assessment
-
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
status. Per family, patient was completing rehab following recent admission at [facility] for septic prosthetic left knee. She had notably grown Pseudomonas in her wound culture and grew Klebsiella in her urine for which she was treated with
antibiotics. She has a history of Mazariegos cirrhosis with hepatic encephalopathy but has not been able to take her medications in the past 3 days. On arrival she has white count of 14.0, lactate 2.6, potassium 5.2, creatinine 3.0 (baseline 1.3-1.4),
she is placed on IV antibiotics. She is otherwise hemodynamically stable, not requiring pressors. She is admitted to ICU for presumed sepsis w/o shock.
Sepsis due to left lower extremity prosthetic infection, subacute
Recent history of Pseudomonas infection and hospitalization at [facility]
Recent history of Klebsiella UTI
Generalized weakness, decreased p.o. intake
Has not taken liver medications in 3 days
SANTOSH
Conditions present [employer]
A-fib on Eliquis
Congestive heart failure on Bumex at home
Hypertension
Hyperlipidemia
History of CVA
Sleep apnea on CPAP
History of diverticulitis
Hypothyroidism
Cataracts
Renal calculi
History of UTI--Klebsiella/ESBL
Adrenal insufficiency s/p pituitary cyst removal
MAZARIEGOS cirrhosis, on midodrine/spironolactone/Xifaxan/bisoprolol
Hepatic encephalopathy on lactulose
Chronic kidney disease suspected, baseline creatinine 1.3�1.4
Osteoporosis on alendronate
Plan
Does not require ICU level of care, not on pressors. She has subacute infection that requires completion of treatment.
Can transfer to floors today for further w/u.
Transfer to tele if ok with team, we will sign off upon transfer.
No current signs of metabolic encephalopathy or MS changes/following commands
Reportedly came in altered but appears improved today, ammonia level normal
Feels depressed/anxious
Denies pain at this time.
Pain/sedation: PRN
RASS goals: 0
Hemodynamically stable, not requiring pressors.
Cardiac history reviewed--Afib/CHF, still exams overloaded
Would resume diuresis
Prior ECHO reviewed indicating preserved function
Resume home meds
Monitor on telemetry
Oxygen needs: 95% on RA
Prior history of lung disease: EDELMIRA on CPAP, resume home PAP
Supplemental O2 as indicated to maintain sats > 89%
CXR/CT reviewed indicating possible L sided effusion, check chest US
Resume diet as tolerated
agree with RUQ US to assess for volume
MAZARIEGOS cirrhosis history, resume home meds
Php Consultant recommendations
Aspiration precautions, HOB > 30 degrees
Speech therapy eval can be considered if at elevated risk
GI prophylaxis if indicated
SANTOSH present
Creat at baseline 1.3-1.4, no history of renal disease known but suspected
Void trials
Follow urine output, critical I/Os
Replete electrolytes as needed
Suspect underlying subacute leg infection
Resume on abx regiment from prior admission
Follow fever trend, WBC count
Lactate elevated on admission, continue to trend until <2
CBC stable, no signs of bleeding or coagulopathy.
DVT prophylaxis as assessed based on risk, including mechanical SCDs
Can transfuse if indicated for Hb <7, plt < 10
No prior h/o diabetes
Monitor accuchecks PRN/SS coverage if needed
H/o hypothyroidism, can continue on home synthroid dose
Diagnostic Data
CXR 10/06/24-Left basilar airspace opacity may reflect combination of pleural effusion and atelectasis or pneumonia.
CXR 11-12-2023: Left basilar opacity suggesting atelectasis or mild pneumonia
Abd US 11-13-2023: No sonographic evidence for abdominal ascites.
Knee XR 10/06/24- Total knee arthroplasty hardware without overt complication. Small suprapatellar joint effusion. No acute fractures or dislocation. Scattered vascular calcifications.
CT Scan:
Echo: 02/29/24- Normal left ventricular chamber size. Mild concentric left ventricular hypertrophy. Mildly reduced left ventricular systolic function. No regional wall motion abnormalities are seen. LV ejection fraction is 48% by Sky's method of
discs, visually 50%. Diastolic function indeterminate. Normal right ventricular size and function. Dilated atria. Mild tricuspid regurgitation. Estimated pulmonary artery pressure of 50-55 mmHg. Assuming a right atrial pressure of 15 mmHg. Trivial
pericardial effusion. The IVC is moderately dilated. Interatrial septum is intact with no evidence of shunting by color flow Doppler. No intracardiac mass or thrombus formation seen. When compared to prior study on 10/18/2019, LVEF is mildly
reduced, AF has replaced SR, and the IVC appears dilated; no other significant changes.
PFT's:
Reports and relevant images were personally reviewed.
-----
Critical care time 55 mins -- this includes review of history, physical exam, medications, hemodynamic/ventilator parameters, laboratory data, imaging and discussion with house staff, pharmacy, respiratory therapy, child psychiatrist, and nursing.
[2024-10-07] MEDS: NOVOLOG FLEXPEN-LOW RESISTANCE SC ×3 (07:36→17:25)
[2024-10-07] MEDS: FLORASTOR 250 MG PO ×2 (07:37→21:12)
[2024-10-07] MEDS: TYLENOL 650 MG PO (07:37)
[2024-10-07] MEDS: CYTOMEL 5 MICROGRAM PO (07:37)
[2024-10-07] MEDS: ProAmatine 10 MG PO ×3 (07:37→21:11)
[2024-10-07] MEDS: DUPHALAC/CHRONULAC 20 GRAMS PO ×4 (07:37→21:11)
[2024-10-07] MEDS: XIFAXAN 550 MG PO ×2 (07:37→21:11)
[2024-10-07] MEDS: ELIQUIS 5 MG PO ×2 (07:37→21:11)
[2024-10-07] MEDS: CYMBALTA DELAYED RELEASE 30 MG PO (07:37)
[2024-10-07 07:45] LABS: Glucose - Point of Care 56 mg/dl (70-99)
--- NOTE | 2024-10-07 07:54 | W.CON.NEPH ---
Consultation
-
Date/Time Consultation Requested: 10/07/24 730AM
Date/Time Consultation Performed: 10/07/24 800AM
Requesting Provider: Dr. Venegas
Performing Provider: Dr. Cool
Reason for Consultation: Acute kidney injury
Medical History
-
Chief Complaint: Acute kidney injury
History of Present Illness:
79-year-old female presents with complaints of weakness, decreased appetite, altered mental status. The daughter Maame states she has been at [facility] for rehab for approximately 1 week they have not been giving her the xifaxin 550 mg daily for the past
3 days for her MAZARIEGOS cirrhosis/history hepatic encephalopathy. The patient's daughter reports over the past few days she has not been acting herself she has had loss of appetite and seems somewhat altered. The patient reports that she does feel
sick. She denies fever, chills, chest pain, palpitations, cough, shortness of breath, headache, abdominal pain, nausea, vomiting, diarrhea, urinary symptoms. She had an admission to [facility] early August into early September secondary to
septic prosthetic left knee with hospital course complicated by acute CHF treated with spironolactone 25 mg daily due to history of orthostatic hypotension and a UTI. Her left knee grew Pseudomonas she had washout on September 15 followed by
Vancomycin which was stopped and changed to Levaquin on 09/19 then changed to Cipro for 6-week course. The patient also grew Klebsiella oxytoca in her urine which was being treated by ciprofloxacin also. ID was avoiding cefepime and meropenem per
family demand due to concern they were causing ARF and altered mental status. She currently has +3 edema to bilateral legs thighs and arms with bolus fluid filled areas to arms. She has a linear incision to her left knee with open area at the
distal aspect that was unable to be closed secondary to edema. There is circumferential erythema to the left knee and inner medial aspect of the thigh which the daughter states has significantly improved.
She was recently discharged approximately 1 week ago and sent to [facility]. She has past medical history of A-fib paroxysmal on Eliquis, chronic diastolic CHF preserved EF, orthostatic hypotension, HTN, HLD, adrenal insufficiency Dx
April 2024 on chronic prednisone 5 mg daily, hypothyroidism, GERD, depression, class II obesity, EDELMIRA noncompliant with CPAP, Current nonambulatory status since August 2024
, UTIs hepatic encephalopathy�MAZARIEGOS cirrhosis April 2023, osteoporosis, compression fracture L1 with chronic back pain on chronic as needed opiates, left knee replacement 2013 [facility], septic left knee with Pseudomonas August 2024
status post washout 09/15/2025 [facility], UTI growing Klebsiella oxytoca August 2025, ARF from suspected antibiotics did receive temporary dialysis x 3-4 sessions August 2025 at [facility] with discharge creatinine of 2.4 on
09/29/2024 pituitary cyst 2013. History of adrenal crisis 2013 S/P pituitary cyst resection. Nephrology was consulted for acute kidney injury with a creatinine of 3.0 on admission to the emergency room last evening. Review of past lab work from
April 2024 reveals a creatinine of 1.4.
Past Medical History
Septic prosthetic left knee with Pseudomonas August 2024 [place]
UTI with Klebsiella oxytoca August 2024 [facility]
SANTOSH/ARF secondary to cefepime/meropenem had emergent dialysis 3-4 episodes August 2024 [facility]
CKD 4 (2.4) at discharge from last hospitalization
A-fib paroxysmal on dialysis
Chronic diastolic CHF
HTN
HLD
Adrenal insufficiency, Hx adrenal crisis 2013
Hypothyroidism
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
GERD
Depression
UTIs
Hepatic encephalopathy 04/2024
MAZARIEGOS cirrhosis
Class II obesity
Nonmobile status stands to transfer since August 2024
Osteoporosis
Chronic L1 compression fracture on chronic as needed oral opiates
Tonsillectomy
Status post left knee washout 09/15/2024 [facility]
Prosthetic left knee originally placed by Dr. Annelise Carcamo 02/05/2015 [facility]
Prosthetic right knee done by same physician above 1 02/05/2015
Social History
Tobacco: Non-Smoker
Alcohol: Occasional
Family History
no CKD
Allergies / Home Medications
Allergy/AdvReac Type Severity Reaction Status Date / Time
amlodipine Allergy Swelling Verified 05/01/24 21:36
meropenem Allergy tremors Verified 05/01/24 21:36
Penicillins Allergy Hives Verified 02/28/24 19:34
�Medication �Instructions �Recorded �Confirmed �Type
liothyronine 5 mcg tablet 5 mcg PO DAILY Thyroid 10/17/19 10/06/24 History
rifaximin 550 mg tablet (Xifaxan) 550 mg PO BID Liver Issues 10/17/19 10/06/24 History
bumetanide 1 mg tablet 1 mg PO DAILY Fluid 11/12/23 10/06/24 History
Retention/Swelling
prednisone 5 mg tablet 5 mg PO DAILY Anti-Inflammatory 12/14/23 10/06/24 History
levothyroxine 75 mcg tablet 75 mcg PO DAILY Thyroid 02/29/24 10/06/24 History
alendronate 70 mg tablet 70 mg PO MO osteoporosis 05/01/24 10/06/24 History
apixaban 2.5 mg tablet (Eliquis) 5 mg PO BID Blood Clot 05/01/24 10/06/24 History
Prevention/Tx
bisoprolol fumarate 5 mg tablet 10 mg PO DAILY Blood Pressure 05/01/24 10/06/24 History
diltiazem HCl 120 mg 120 mg PO DAILY Arrhythmia 05/01/24 10/06/24 History
capsule,extended release 24 hr
(Cartia XT)
spironolactone 25 mg tablet 25 mg PO DAILY Fluid 05/01/24 10/06/24 History
Retention/Swelling
Saccharomyces boulardii 250 mg 250 mg PO BID 10/06/24 10/06/24 History
capsule
ciprofloxacin HCl 750 mg tablet 750 mg PO DAILY 10/06/24 10/06/24 History
duloxetine 30 mg capsule,delayed 30 mg PO DAILY 10/06/24 10/06/24 History
release sprinkle
lactulose 20 gram/30 mL oral 30 ml PO QID 10/06/24 10/06/24 History
solution
midodrine 10 mg tablet 10 mg PO TID 10/06/24 10/06/24 History
oxycodone 5 mg tablet 5 mg PO Q6H PRN pain 10/06/24 10/06/24 History
Review of Systems
-
All other systems: Negative unless noted
Constitutional: Other (weakness, decreased po intake)
Musculoskeletal: Other (Nonambulatory)
Neurological: Other (mental status changes)
Physical Exam
Vital Signs
Vital Signs
Temp Pulse Resp BP Pulse Ox
97.9 F 88 14 101/58 94
10/07/24 07:00 10/07/24 04:30 10/07/24 04:30 10/07/24 04:00 10/06/24 23:30
Lab Results
10/07/24 01:48
10/07/24 01:48
WBC 10.0 10^3/uL (4.8-10.8) 10/07/24 01:48
RBC 3.48 10^6/uL (4.20-5.40) L 10/07/24 01:48
Hgb 10.6 g/dL (12.0-16.0) L 10/07/24 01:48
Hct 32.2 % (37.0-47.0) L 10/07/24 01:48
Plt Count 172 10^3/uL (130-400) D 10/07/24 01:48
Sodium 136 mmol/L (135-145) 10/07/24 01:48
Potassium 4.0 mmol/L (3.5-5.1) 10/07/24 01:48
Chloride 103 mmol/L (98-107) 10/07/24 01:48
Carbon Dioxide 19 mmol/L (22-30) L 10/07/24 01:48
BUN 74 mg/dl (7-17) H 10/07/24 01:48
Creatinine 2.7 mg/dL (0.6-1.0) H 10/07/24 01:48
eGFR 17.62 10/07/24 01:48
Glucose 103 mg/dl (70-99) H 10/07/24 01:48
Calcium 7.7 mg/dl (8.4-10.2) L 10/07/24 01:48
Phosphorus 5.0 mg/dl (2.5-4.5) H 10/07/24 01:48
Fnc-Y-Iumpkmmrxnt Pept 1140 pg/ml 10/06/24 14:34
Albumin 2.4 g/dl (3.5-5.0) L 10/07/24 01:48
Physical Exam
General: AOx2, obese, appears chronically ill
HEENT: PERRL, EOMI, Anicteric, Conjunctivae Clear, Ear/Nose Intact, Hearing Normal, Oropharynx Clear/Moist, Facial Symmetry, Neck Supple, Neck: Trachea Midline, No JVD and No Thyromegaly, no Bruits
Respiratory: Coarse to auscultation , decreased breath sounds to left base with normal lung exersion
Cardiac: S1/S2 and Regular Rate/Rhythm with ectopy
Breast: Deferred by me
Abdomen: Soft, Nontender, distended, Normal Bowel Sounds and unpalpable for hepatosplenomegaly
Rectal: Deferred by Provider
Genito-urinary: No Costovertebral Tenderness
Extremities: No Clubbing, No Cyanosis and 2-3+ peripheral edema
Skin: Multiple regions of ecchymosis and bleeding from skin tears, anicteric
Neuro: Nonfocal/Grossly Intact, CN II-XII (Intact) and Strength (Musculoskeletal exam 5 out of 5 both upper and lower extremities)
Hematologic/Lymphatic: No Cervical Lymphadenopathy, No Submandibular Lymphadenopathy and No Supraclavicular Lymphadenopathy
Psych: Mood/afflect pleasant, Insight/judgement poor, struggles to answer certain questions
Vascular: plus 1 pedal and radial pulses
Data Reviewed
-
Radiology: Image Personally Visualized and interpreted (Chest x-ray personally reviewed notes left lower lobe opacification possible pleural effusion) and Report Reviewed by me
Labs: Labs Reviewed by me (BMP ,CBC, UA)
Old Records: Reviewed (Old lab work reviewed from 05/05/2024 creatinine 1.4)
Assessment/Plan
-
Impression:
Sepsis/PNA
UTI hx
SANTOSH/CKD (2.4)
Hx of Adrenal insufficiency
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
Abdominal ascites/hypoalbuminemia
MAZARIEGOS cirrhosis
Paroxysmal atrial fibrillation
Chronic diastolic heart failure/history of hepatic encephalopathy
Hypothyroidism
Chronic compression L1 lumbar vertebrae
Nonambulatory
Plan:
SANTOSH:
-Patient's creatinine is at 2.7 which is not far off of her baseline following discharge from outside hospital when it was 2.4 following 3 dialysis sessions
-There is no acute dialysis requirement today
-I suspect her underlying chronic kidney disease is due to multiple factors including underlying infection, cirrhosis with poor effective circulating volume, diastolic heart failure, and ongoing hemodynamic instability
-continue 10mg midodrine TID in the setting of her hypotension
-Her underlying hypoalbuminemia which is likely a function of her cirrhosis limits effective diuresis due to hemodynamic instability
-Aggressive diuresis for her obvious peripheral volume overload will prove difficult
-She is not a good long-term dialysis candidate even if dialysis would be required given her advanced comorbidities of MAZARIEGOS cirrhosis diastolic heart failure with ongoing hemodynamic instability
-CXs pending
-Levaquin renally dosed
-I would not provide further IV fluids as she is already significantly volume overloaded
[2024-10-07 08:01] LABS: Glucose - Point of Care 73 mg/dl (70-99)
--- NOTE | 2024-10-07 08:07 | PTCARENOTE ---
pt received from previous rn- aox3, forgetful at times, able to make needs known and answers questions appropriately. turned and repositioned, incont of urine, purewick intact. see wound care flowsheet. pt bs 56- asymptomatic- orange juice given
recheck 73. pt eating breakfast. afib on monitor, room air. no complaints at this time. all safety precautions in place, call mccall within reach. pt educated about plan of care, verbalized understanding. ultrasound at the bedside.
[2024-10-07 09:42] LABS: Glucose - Point of Care 146 mg/dl (70-99)
--- NOTE | 2024-10-07 10:00 | W.PN.HOSP.TC ---
Today's Communication/Plan
-
Empiric antibiotics pending cultures.
Observe off IV fluids.
Hold diuretics and antihypertensives
Continue midodrine
Assessment / Plan
Assessment / Plan
Impression
Sepsis present on admission
Acute on chronic hypotension presumably secondary to septic shock
Toxic metabolic encephalopathy on presentation
Conditions prior to admission:
Recent hospitalization in outside hospital for left PE septic prosthetic arthritis reportedly culture positive for Pseudomonas. Discharged on ciprofloxacin
UTI with Klebsiella reported at that admission.
Reported penicillin and meropenem allergy
Acute kidney injury requiring 3 hemodialysis session.
CKD stage IIIb with baseline creatinine 1.4.
MAZARIEGOS cirrhosis with anasarca.
History of hepatic encephalopathy.
Paroxysmal atrial fibrillation baseline anticoagulation with Eliquis
Chronic diastolic CHF
History of pituitary cyst
Obstructive sleep apnea not compliant with CPAP
Dyslipidemia
Hypothyroidism on replacement
GERD.
Obesity with BMI of 38 chronic compression fracture at L1
Plan:
Presentation with clinical sepsis.
Currently afebrile with trending down WBC.
Possible sources: Left knee prosthetic arthritis, versus UTI, versus left lower lobe pneumonia.
Empiric antibiotics levofloxacin adjusted to renal function.
Follow blood cultures
Follow urine cultures.
ID consultation
Septic shock
Acute on chronic hypotension
Had not required pressors.
As hemodynamics relatively improved and mental status back to baseline hold further IV fluids
Hold antihypertensives including diltiazem
Hold Bumex and Aldactone
Continue midodrine 10 mg p.o. 3 times daily
Toxic metabolic encephalopathy.
Suspect secondary to acute illness
Doubt hepatic encephalopathy.
No focal findings on exam.
CT scan of the head with no acute abnormal
SANTOSH
Patient baseline creatinine 1.4.
2.7 upon presentation.
Reported required 3 hemodialysis session with recent outside hospitalization.
Nephrology consulted.
Monitor urine output.
Monitor for retention.
Hold Bumex and Aldactone for now
Observe off IV fluids
MAZARIEGOS cirrhosis.
Noted lethargic on admission, currently improving.
Hepatic encephalopathy ruled out.
Continue lactulose and rifaximin.
Severe anasarca.
Would be difficult to mobilize fluid from third spacing.
Hold Bumex and Aldactone acutely reassessing hemodynamics.
Paroxysmal atrial fibrillation.
Monitor on telemetry.
Hold Cardizem.
Continue Eliquis
Chronic CHF preserved EF.
Echo 03/15 LVEF 48-50%.
Monitor volume status closely.
Resume diuretics when hemodynamics are stable
Hypothyroidism on replacement
Obstructive sleep apnea.
Not compliant with CPAP.
Full code
Anticipated Discharge: > 48 hours
Subjective/Interval History
-
Date of Service: October 07, 2024
Objective Data
-
Labs:
Laboratory Results
10/07/24
01:48
WBC 10.0
Hgb 10.6 L
Hct 32.2 L
Plt Count 172 D
Sodium 136
Potassium 4.0
Chloride 103
Carbon Dioxide 19 L
BUN 74 H
Creatinine 2.7 H
Glucose 103 H
Calcium 7.7 L
Total Bilirubin 1.8 H
AST 38 H
ALT 23
Alkaline Phosphatase 117
Vital Signs:
Vital Signs
Temp Pulse Resp BP Pulse Ox
97.9 F 99 17 104/59 98
10/07/24 07:00 10/07/24 09:00 10/07/24 09:00 10/07/24 09:00 10/07/24 09:00
I&O
10/06/24 10/07/24 10/08/24
06:59 06:59 06:59
Intake Total 800 / 900 300 / 300
Output Total 600 / 700 100 / 100
Balance 200 / 200 200 / 200
Physical Exam
-
General: Well Developed and No Apparent Distress
HEENT: Normocephalic, Atraumatic and Moist Mucous Membranes
Respiratory: Clear to Auscultation
Cardiac: Regular Rhythm and S1/S2; Negative Murmur, Rub or Gallop
GI: Soft, Nontender, Nondistended and Normal Bowel Sounds; Negative Organomegaly
Rectal: Deferred by Provider
Musculoskeletal: No Clubbing, No Cyanosis and Other (Anasarca)
Skin: Negative Rash
Neuro: Awake, Alert, Oriented and Nonfocal/Grossly Intact
[2024-10-07 10:43] LABS: Glycohemoglobin (HgbA1c) 6.1 % (4.0-5.6)
--- NOTE | 2024-10-07 11:54 | PTCARENOTE ---
pt sugar 60, recheck for 102. pt with no complaints, eating lunch.
--- NOTE | 2024-10-07 11:56 | CM ---
Patient from [facility] with Dx sepsis. Room air. Receiving IV Levaquin. PT/OT Evals pending.
Spoke with Roxanna, [facility];
the patient was there for short term rehab and is not on a bed hold.
She was receiving PT/OT, required assist of 2, and was 'self limiting' and not initiating toward independence, but asking her to assist with her care needs.
Pharmacy - [facility]
They are able to accept the patient back to complete rehab, once an insurance approval is obtained.
Plan follow up with patient/ about returning to [facility], once able to be seen by PT/OT.
[2024-10-07 12:06] LABS: Glucose - Point of Care 60 mg/dl (70-99)
[2024-10-07] MEDS: DELTASONE 5 MG PO (12:12)
--- NOTE | 2024-10-07 12:21 | PTCARENOTE ---
pts daughter at bedside, stating pt seems more confused, pt still able to answer questions appropriately, forgetful at times. Dr. Cox made aware, no further orders. pt downgraded to tele level of care.
--- NOTE | 2024-10-07 16:55 | PTCARENOTE ---
Dr. Courtney notified of intermittent episodes of worsening confusion, no new orders.
[2024-10-07 17:29] LABS: Glucose - Point of Care 137 mg/dl (70-99)
--- NOTE | 2024-10-07 20:00 | PTCARENOTE ---
rec`d pt at 1900 Awake and alert. pt has oriented conversations. forgetful at times. a fib on monitor. HR 70s-low 100s. +4 lower extrem pitting edema. +3 upper extrem edema. left upper arm midline flushed and patent. rt AC 18 flushed and patent.
wounds as charted. clear lung sounds throughout. diminished at the bases. RA, POX mid 90s%. purwick in place. call mccall in reach, safe environment maintained.
[2024-10-07] MEDS: MELATONIN 5 MG PO (21:21)
[2024-10-08] VITALS (9 sets, daily range): BP systolic 103–143; BP diastolic 65–90; BMI 38.0
[2024-10-08 05:08] LABS: ALT (SGPT) 25 U/L (0-35); AST (SGOT) 44 U/L (14-36); Albumin 3.2 g/dl (3.5-5.0); Alkaline Phosphatase 167 U/L (38-126); Blood Urea Nitrogen 61 mg/dl (7-17); Calcium 8.9 mg/dl (8.4-10.2); Carbon Dioxide 21 mmol/L (22-30); Chloride 106 mmol/L (98-107); Estimated Creatinine Clearance 22 ml/min; Glucose 76 mg/dl (70-99); Potassium 3.9 mmol/L (3.5-5.1); Sodium 139 mmol/L (135-145); Total Bilirubin 2.1 mg/dl (0.2-1.3); Total Protein 5.3 g/dl (6.3-8.2); eGFR 21.36
--- NOTE | 2024-10-08 05:19 | PTCARENOTE ---
full bed bath. new foam on chest skin tear due to bloody drainage. new rectal trumpet.
[2024-10-08] MEDS: SYNTHROID 75 MCG PO (05:43)
[2024-10-08 06:30] LABS: Hemoglobin 9.9 g/dL (12.0-16.0); Mean Corpuscular Hgb 30.5 pg (27.0-31.0); Mean Corpuscular Volume 92.3 fL (81.0-99.0); Mean Platelet Volume 10.2 fL (7.4-10.4); Platelet Count 156 10^3/uL (130-400); Red Blood Cell Count 3.25 10^6/uL (4.20-5.40); Red Cell Dist. Width 19.5 % (11.5-14.5); White Blood Cell Count 9.7 10^3/uL (4.8-10.8)
[2024-10-08 07:47] LABS: Absolute Neutrophils -Man Diff 8.1 10^3/uL (1.4-6.5); Band Neutrophils 4 % (0-3); Lymphocytes 5 % (20-51); Metamyelocytes 1 % (-); Monocytes 10 % (2-9); Normal RBC Morphology No; Nucleated Red Blood Cells 1 (-); Platelets Checked Yes; Segmented Neutrophils 80 % (42-75)
[2024-10-08 07:48] LABS: Anisocytosis 1+; Hypochromasia 2+; Ovalocytes 1+; Polychromasia 1+; Target Cells FEW; Total Cells Counted 100
[2024-10-08] MEDS: FLORASTOR 250 MG PO ×2 (07:53→21:04)
[2024-10-08] MEDS: CYTOMEL 5 MICROGRAM PO (07:53)
[2024-10-08] MEDS: DELTASONE 5 MG PO (07:53)
[2024-10-08] MEDS: ProAmatine 10 MG PO ×3 (07:53→21:05)
[2024-10-08] MEDS: XIFAXAN 550 MG PO ×2 (07:53→21:04)
[2024-10-08] MEDS: ELIQUIS 5 MG PO ×2 (07:53→21:03)
[2024-10-08] MEDS: CYMBALTA DELAYED RELEASE 30 MG PO (07:54)
[2024-10-08] MEDS: NOVOLOG FLEXPEN-LOW RESISTANCE SC ×3 (08:03→16:55)
[2024-10-08 08:06] LABS: Glucose - Point of Care 63 mg/dl (70-99)
--- NOTE | 2024-10-08 08:13 | PTCARENOTE ---
pt received from previous rn- answers most questions appropriately, intermittently forgetful/confused, able to make needs known. bs 63- 4oz juice given- repeat 72- pt asymptomatic and eating breakfast. afib on monitor, room air. no complaints at
this time. incontinent care provided. all safety precautions in place, call mccall within reach.
[2024-10-08 08:24] LABS: Glucose - Point of Care 72 mg/dl (70-99)
[2024-10-08] MEDS: DUPHALAC/CHRONULAC PO (09:29)
--- NOTE | 2024-10-08 11:06 | W.PN.NEPH.PH ---
Today's Communication / Plan
-
Albumin as needed.
Diuretics on hold
Assessment/Plan
-
Impression:
Sepsis/PNA
UTI hx
SANTOSH/CKD (2.4)
Hx of Adrenal insufficiency
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
Abdominal ascites/hypoalbuminemia
MAZARIEGOS cirrhosis
Paroxysmal atrial fibrillation
Chronic diastolic heart failure/history of hepatic encephalopathy
Hypothyroidism
Chronic compression L1 lumbar vertebrae
Nonambulatory
Plan:
SANTOSH:
-Patient's creatinine is at 2.3 which is her baseline following discharge from outside hospital when it was 2.4 following 3 dialysis sessions
-There is no acute dialysis requirement today
-I suspect her underlying chronic kidney disease is due to multiple factors including underlying infection, cirrhosis with poor effective circulating volume, diastolic heart failure, and ongoing hemodynamic instability
-continue 10mg midodrine TID in the setting of her hypotension
-Her underlying hypoalbuminemia which is likely a function of her cirrhosis limits effective diuresis due to hemodynamic instability
-Aggressive diuresis for her obvious peripheral volume overload will prove difficult
-She is not a good long-term dialysis candidate even if dialysis would be required given her advanced comorbidities of MAZARIEGOS cirrhosis diastolic heart failure with ongoing hemodynamic instability
-Levaquin renally dosed
- negative 1 L over the last 24 hours
Continue supportive care
Total Time Spent with Patient (in minutes): 33
-
-
Date of Service: October 08, 2024
CC / HPI / ROS
-
Chief Complaint:
Acute on chronic kidney disease secondary to cirrhosis, sepsis
History of Present Illness:
SANTOSH improved creatinine at baseline
Review of Systems: No chest pain or shortness of breath nonoliguric
Labs
-
Labs:
WBC 9.7 10^3/uL (4.8-10.8) 10/08/24 04:20
RBC 3.25 10^6/uL (4.20-5.40) L 10/08/24 04:20
Hgb 9.9 g/dL (12.0-16.0) L 10/08/24 04:20
Hct 30.0 % (37.0-47.0) L 10/08/24 04:20
Plt Count 156 10^3/uL (130-400) 10/08/24 04:20
Sodium 139 mmol/L (135-145) 10/08/24 04:20
Potassium 3.9 mmol/L (3.5-5.1) 10/08/24 04:20
Chloride 106 mmol/L (98-107) 10/08/24 04:20
Carbon Dioxide 21 mmol/L (22-30) L 10/08/24 04:20
BUN 61 mg/dl (7-17) H 10/08/24 04:20
Creatinine 2.3 mg/dL (0.6-1.0) H 10/08/24 04:20
eGFR 21.36 10/08/24 04:20
Glucose 76 mg/dl (70-99) 10/08/24 04:20
Calcium 8.9 mg/dl (8.4-10.2) 10/08/24 04:20
Phosphorus 5.0 mg/dl (2.5-4.5) H 10/07/24 01:48
Gif-C-Iezujvsdini Pept 1140 pg/ml 10/06/24 14:34
Albumin 3.2 g/dl (3.5-5.0) L 10/08/24 04:20
Physical Exam
-
Vital Signs:
Vital Signs
Temp Pulse Resp BP Pulse Ox
98.0 F 112 14 112/66 97
10/08/24 07:41 10/08/24 08:00 10/08/24 08:00 10/08/24 08:00 10/08/24 08:00
Cardiovascular:: Regular rate and rhythm
Respiratory:: Bilateral: CTA
Lung Excursion:: Normal
Abdomen:: Soft
Bowel Sounds:: Normal
Extremity Edema:: +2: Bilateral:
Gutiérrez Catheter: Yes
[2024-10-08] MEDS: DUPHALAC/CHRONULAC 20 GRAMS PO ×3 (11:17→21:05)
[2024-10-08 11:22] LABS: Glucose - Point of Care 206 mg/dl (70-99)
--- NOTE | 2024-10-08 11:56 | WOUNDNOTE ---
CHEST (ANTERIOR UPPER)
--- NOTE | 2024-10-08 11:58 | WOUNDNOTE ---
LABIA (OUTER, L SIDE)
--- NOTE | 2024-10-08 11:59 | WOUNDNOTE ---
LABIA (OUTER, L SIDE)
--- NOTE | 2024-10-08 11:59 | WOUNDNOTE ---
LABIA (OUTER L SIDE)
--- NOTE | 2024-10-08 12:03 | WOUNDNOTE ---
[facility] RN note: Patient admitted with sepsis, pneumonia, HOTN. Patient admitted from [facility] in [place]. Has been there for 1 week. Had long hospital stay at [facility] for septic prosthetic L knee, s/p Wash out L knee by Dr. Valenzuela with
distal section of incision left open d/t edema. Patient has been on a 6 week course of Cipro prior to admission. Orthostatic hypotension, HTN, HLD, adrenal insufficiency (Prednisone), depression, obesity, EDELMIRA (non compliant with CPAP), non
ambulatory since 08/2024, compression fracture L1, chronic
See H&P for complete history.
PMH: a fib (Eliquis), MAZARIEGOS cirrhosis, hepatic encephalopathy,
Wound Location and type/assessment: Patient admitted with:
Appetite:
Pressure redistribution devices in place:
Plan:
Will confirm orders with hospitalist and update nurse.
Updated care plan and will follow as needed.
Note to case management of equipment requested for discharge:
Recommend follow up at wound care center upon discharge.
--- NOTE | 2024-10-08 12:13 | WOUNDNOTE ---
[facility] RN note: Patient admitted with sepsis, pneumonia, HOTN. Patient [facility] in [place]. Has been there for 1 week. Had long hospital stay at [facility] for septic prosthetic L knee, s/p wash out L knee by Dr. Valenzuela with
distal section of incision left open d/t edema as per daughter/chart review. Patient has been on a 6 week course of Cipro prior to admission. Orthostatic hypotension, HTN, HLD, adrenal insufficiency (Prednisone), depression, obesity, EDELMIRA (non
compliant with CPAP), non ambulatory since 08/2024, compression fracture L1, chronic
See H&P for complete history.
PMH: a fib (Eliquis), MAZARIEGOS cirrhosis, hepatic encephalopathy, obesity.
Wound Location and type/assessment: Patient admitted with: L arm and L hand dermal skin tears, ecchymotic areas on arms, L flank, chest, knees, R forearm blood blister d/t edema, L outer labia dermal small pink ulcer suspect r/t anasarca, friction,
incontinence. L distal knee incisional wound, pink with scabbed edge, moderate ss drainage. L heel stage 1 pressure injury, ecchymotic red. +R Pedal pulse via portable Doppler. ROSA Erazo confirmed bilateral pedal pulses heard via portable Doppler.
Resolving linear red ecchymotic martínez on inner upper thighs suspect from diaper use. Sacral/buttocks discolored dull purple. R neck suture/dry scab suspect from old HD catheter. Underside of L breast with liner red alba. +Anasarca.
Appetite: good.
Pressure redistribution devices in place: Centrella Max air bed. Patient needs help to turn in bed. [facility] obtained another Centrella Max air for patient who will be transferred to room 2137. t/c SPD and ordered TruVue lite boots and
bariatric air chair cushion to be send to . Discussed with ICU Abigail and bill of lading clerk Faith.
Plan: L knee, bilateral forearm dressings changed. Dressing applied to L hand and L heel. Patient incontinent of soft loose brown stool. Kylie care and Calazime applied to kylie/labia with help from ASSISTANT TO THE VICE PRESIDENT Kacey. Patient turned with help from ICU
ROSA Erazo. Heels off bed with pillows.
Updated and confirm orders with Dr. Courtney who viewed L knee photo. Dr. Courtney approved local wound care, soft heel relief boots, air mattress.
Care plan to be updated and will follow as needed.
Note to case management of equipment requested for discharge: Air mattress at SNF if not already in place.
Patient to follow up with orthopedic surgeon. Recommend follow with a wound care nurse rn or wound care center after discharge.
--- NOTE | 2024-10-08 12:15 | WOUNDNOTE ---
[facility] RN note: Patient admitted with sepsis, pneumonia, HOTN. Patient admitted from [facility]. Has been there for 1 week. Had long hospital stay at [facility] for septic prosthetic L knee, s/p wash out L knee by Dr. Valenzuela with
distal section of incision left open d/t edema as per daughter/chart review. Patient has been on a 6 week course of Cipro prior to admission. Orthostatic hypotension, HTN, HLD, adrenal insufficiency (Prednisone), depression, obesity, EDELMIRA (non
compliant with CPAP), non ambulatory since 08/2024, compression fracture L1, chronic back pain.
See H&P for complete history.
PMH: a fib (Eliquis), MAZARIEGOS cirrhosis, hepatic encephalopathy, obesity.
Wound Location and type/assessment: Patient admitted with:
L arm and L hand dermal skin tears, ecchymotic areas on arms, L flank, chest, knees.
R forearm blood blister d/t edema.
L outer labia dermal small pink ulcer suspect r/t anasarca, friction, incontinence.
L distal knee incisional wound, pink with scabbed edge, moderate ss drainage.
L heel stage 1 pressure injury, ecchymotic red.
Resolving linear red ecchymotic martínez on inner upper thighs suspect from diaper use.
Sacral/buttocks discolored dull purple.
R neck suture/dry scab suspect from old HD catheter.
Underside of L breast with liner red alba.
ROSA Erazo confirmed bilateral pedal pulses heard via portable Doppler. +Anasarca.
Appetite: good.
Pressure redistribution devices in place: Centrella Max air bed. Patient needs help to turn in bed. [facility] obtained another Centrella Max air for patient who will be transferred to room 2137. t/c [employer] [facility] and ordered TruVue lite boots and
bariatric air chair cushion to be sent to . Discussed with ICU Abigail and measurement department chief clerkclerk Barbosa.
Plan: L knee, bilateral forearm dressings changed. Dressing applied to L hand and L heel. Patient incontinent of soft loose brown stool. Kylie care given and Calazime applied to kylie/labia with help from BICYCLE SUBASSEMBLER Kacey. Patient turned with help from
BICYCLE SUBASSEMBLER Kacey. Heels off bed with pillows.
Updated and confirm orders with Dr. Courtney who viewed L knee photo. Dr. Courtney approved local wound care, soft heel relief boots, air mattress. Discussed R side of neck suture.
Care plan to be updated and will follow as needed.
Note to case management of equipment requested for discharge: Air mattress at SNF if not already in place.
Patient to follow up with orthopedic surgeon. Recommend follow with a wound intensive care specialist or wound care center after discharge.
[2024-10-08 12:22] LABS: Glucose - Point of Care 112 mg/dl (70-99)
[2024-10-08 13:13] LABS: Glucose - Point of Care 102 mg/dl (70-99)
--- NOTE | 2024-10-08 13:24 | PTCARENOTE ---
wound care completed with Laureen wound rn- see notes. pt sent to 2137- report given to Maria Luisa LEE. poc discussed with Dr. Courtney. at bedside- aware of transfer. pt sent with belongings.
--- NOTE | 2024-10-08 13:34 | PTCARENOTE ---
Received pt from ICU with RN at bedside, VSS, wound care CDI, purewick and rectal trumpet in place, pt and oriented to room. Call bel within reach, no new orders at this time.
[2024-10-08] MEDS: ZEBETA 10 MG PO (13:46)
--- NOTE | 2024-10-08 14:00 | WOUNDNOTE ---
[facility] RN note: t/c [facility], spoke with nurse Liseth who stated current L knee wound care is daily Xeroform gauzkiana, ABD Rhonda mccarthy and she believes that patient has an air mattress at the rehab. Recommended air mattress at [facility] rehab to
Liseth if not already in place.
--- NOTE | 2024-10-08 14:24 | W.PN.HOSP.TC ---
Today's Communication/Plan
-
Continue antibiotics pending final cultures and ID consult
Hold diuretics and antihypertensive
Continue midodrine
Monitor renal function
Wound care.
Physical therapy assessment
Assessment / Plan
Assessment / Plan
Impression
Sepsis present on admission
Acute on chronic hypotension presumably secondary to septic shock
Toxic metabolic encephalopathy on presentation
Conditions prior to admission:
Recent hospitalization in outside hospital for left PE septic prosthetic arthritis reportedly culture positive for Pseudomonas. Discharged on ciprofloxacin
UTI with Klebsiella reported at that admission.
Reported penicillin and meropenem allergy
Acute kidney injury requiring 3 hemodialysis session.
CKD stage IIIb with baseline creatinine 1.4.
MAZARIEGOS cirrhosis with anasarca.
History of hepatic encephalopathy.
Paroxysmal atrial fibrillation baseline anticoagulation with Eliquis
Chronic diastolic CHF
History of pituitary cyst
Obstructive sleep apnea not compliant with CPAP
Dyslipidemia
Hypothyroidism on replacement
GERD.
Obesity with BMI of 38 chronic compression fracture at L1
Plan:
Presentation with clinical sepsis.
Currently afebrile with trending down WBC.
Possible sources: Left knee prosthetic arthritis, versus UTI, versus left lower lobe pneumonia.
Empiric antibiotics levofloxacin adjusted to renal function.
Blood cultures negative to date
Urine cultures negative to date
ID consultation pending
Hypotension multifactorial possibly due to septic shock as well as underlying cirrhosis with systemic vasodilation
Acute on chronic hypotension
Had not required pressors.
As hemodynamics relatively improved and mental status back to baseline hold further IV fluids
Hold antihypertensives including diltiazem
Hold Bumex and Aldactone
Continue midodrine 10 mg p.o. 3 times daily
Toxic metabolic encephalopathy.
Suspect secondary to acute illness
Doubt hepatic encephalopathy.
No focal findings on exam.
CT scan of the head with no acute abnormal
SANTOSH
Patient baseline creatinine 1.4.
2.7 upon presentation.
Reported required 3 hemodialysis session with recent outside hospitalization.
Nephrology consulted.
Monitor urine output.
Monitor for retention.
Hold Bumex and Aldactone for now
Observe off IV fluids
MAZARIEGOS cirrhosis.
Noted lethargic on admission, currently improving.
Hepatic encephalopathy ruled out.
Continue lactulose and rifaximin.
Severe anasarca.
Would be difficult to mobilize fluid from third spacing.
Hold Bumex and Aldactone acutely reassessing hemodynamics.
Paroxysmal atrial fibrillation.
Monitor on telemetry.
Hold Cardizem.
Continue Eliquis
Chronic CHF preserved EF.
Echo 03/15 LVEF 48-50%.
Monitor volume status closely.
Resume diuretics when hemodynamics are stable
Hypothyroidism on replacement
Obstructive sleep apnea.
Not compliant with CPAP.
Full code
Anticipated Discharge: 24 - 48 hours
Subjective/Interval History
-
Date of Service: October 08, 2024
Objective Data
-
Labs:
Laboratory Results
10/08/24
04:20
WBC 9.7
Hgb 9.9 L
Hct 30.0 L
Plt Count 156
Sodium 139
Potassium 3.9
Chloride 106
Carbon Dioxide 21 L
BUN 61 H
Creatinine 2.3 H
Glucose 76
Calcium 8.9
Total Bilirubin 2.1 H
AST 44 H
ALT 25
Alkaline Phosphatase 167 H
Vital Signs:
Vital Signs
Temp Pulse Resp BP Pulse Ox
98.2 F 81 16 124/90 97
10/08/24 13:21 10/08/24 13:46 10/08/24 13:21 10/08/24 13:46 10/08/24 13:21
I&O
10/07/24 10/08/24 10/09/24
06:59 06:59 06:59
Intake Total 800 / 900 300 / 300
Output Total 600 / 700 1300 / 1300 400 / 400
Balance 200 / 200 -1000 / -1000 -400 / -400
Physical Exam
-
General: Well Developed and No Apparent Distress
HEENT: Normocephalic, Atraumatic and Moist Mucous Membranes
Respiratory: Clear to Auscultation
Cardiac: Regular Rhythm and S1/S2; Negative Murmur, Rub or Gallop
GI: Soft, Nontender, Nondistended and Normal Bowel Sounds; Negative Organomegaly
Rectal: Deferred by Provider
Musculoskeletal: No Clubbing, No Cyanosis and Other (Anasarca)
Skin: Negative Rash
Neuro: Awake, Alert, Oriented and Nonfocal/Grossly Intact
--- NOTE | 2024-10-08 16:19 | CM ---
CM following: discharge planing.
Reviewed pt's chart, met with pt and spoke to pt's daughter Ethel to update on discharge plan progress.
per daughter, her mother was at [facility] just one week and she feels that pt will need to comeback to [facility] when medically stable. pt's daughter is aware that PT and OT recommend SNF level of care.
Pt's daughter asked time to talk to her family to confirm that [facility] will be a preferred SNF.
D/C plan: preferred SNF.
CM will follow with discharge plan updates as hospitalization progresses
[2024-10-08 16:49] LABS: Glucose - Point of Care 125 mg/dl (70-99)
--- NOTE | 2024-10-08 17:27 | CON.ID ---
Consultation
-
Date/Time Consultation Requested: 10/08/2024 0910
Date/Time Consultation Performed: 10/08/2024 1700
Requesting Provider: Dr. Grover
Performing Provider: Dr. Moore
Reason for Consultation: Clinical sepsis
Chief Complaint / Past History
History of Present Illness
Emily Miller is a 79-year-old female being evaluated at the request of Dr. Courtney in regards to sepsis. History is obtained from chart review, along with patient interview. Additional history was obtained from the patient's who was at the
bedside.
The patient has a history of Ngo cirrhosis, hepatic encephalopathy and diastolic CHF. She was admitted to [facility] in April secondary to a UTI and hepatic encephalopathy. She reportedly did well until early August when she developed
left knee pain. She was admitted to [facility] and found to have a left knee prosthetic joint infection secondary to Pseudomonas. She reportedly underwent washout on 09/15, and ultimately antibiotics were consolidated to ciprofloxacin, to
continue a 6-week course. Thereafter, she was transitioned to [facility] for further therapy. According to ER notes, over the past several days the patient has not been herself, with decreased appetite and altered mentation. Because of
the above, she was brought to the emergency room for further evaluation. Here she was found to have a mild leukocytosis, and elevated lactate. Infectious Diseases is asked to comment upon further antimicrobial therapy.
Past History
Additional Past Medical History:
CKD stage III
NGO cirrhosis with anasarca
Hx hepatic encephalopathy
P A-fib
Diastolic CHF
Hx pituitary cyst
EDELMIRA on CPAP (reportedly noncompliant)
Dyslipidemia
Hypothyroidism
GERD
Morbid obesity
L1 compression fracture
Orthostatic hypotension
HTN
Adrenal insufficiency
Additional Past Surgical History:
,
Orthopedic surgery
Tonsilectomy
Allergy History:
amlodipine Allergy (Verified 05/01/24 21:36)
Swelling
meropenem Allergy (Verified 05/01/24 21:36)
tremors
Penicillins Allergy (Verified 02/28/24 19:34)
Hives
Medications Reviewed: Yes
Current Antibiotics:
Levaquin 750 mg IV every 48 hours
Xifaxan 550 mg p.o. twice daily
Social History
Tobacco: Non-Smoker
Alcohol: None
Drug: None
Personal:
Living: With Family
Employment: Retired
Family History
Family History: Not Pertinent
Review of Systems
Vital Signs
Temp Pulse Resp BP Pulse Ox
97.7 F 107 16 124/83 97
10/08/24 15:33 10/08/24 15:33 10/08/24 15:33 10/08/24 15:33 10/08/24 16:50
Physical Exam
Physical Exam
Constitutional: No Acute Distress, Comfortable and Non-toxic
Eyes: Pupils Equal, Pupils Round, No Conjunctival Hemorrhage and Sclera Anicteric
Oral: No Thrush and No Ulcers
Cardiovascular: S1/S2; Negative S3/S4
Pulmonary: Clear; Negative Wheezes, Rales or Rhonchi
Gastrointestinal: Soft, Distended, Normal Bowel Sounds, No Rebound and No Guarding
Extremities: Edema (4+) and Other (Anasarca noted.); Negative Cyanosis or Erythema
Wound: Other (Left knee incisional wound healing. Small area in the inferior aspect with dehiscence, but granulation tissue in the base. No periwound erythema.)
Neurological: Awake and Alert
Psychological: Calm
Lab / Diagnostic Study Results
10/08/24 04:20
10/08/24 04:20
Abs Immat Gran (auto) 0.6 10^3/uL (0-0.05) H 10/07/24 01:48
Absolute Neuts (auto) 8.1 10^3/uL (1.4-6.5) H 10/07/24 01:48
Absolute Lymphs (auto) 0.5 10^3/uL (1.2-3.4) L 10/07/24 01:48
Absolute Monos (auto) 0.6 10^3/uL (0.1-0.6) 10/07/24 01:48
Absolute Basos (auto) 0.0 10^3/uL (0-0.2) 10/07/24 01:48
Total Counted 100 10/08/24 04:20
Immature Gran % 5.9 % (0-0.5) H 10/07/24 01:48
Neutrophils % 81.3 % (42.2-75.2) H 10/07/24 01:48
Lymphocytes % 5.3 % (20.5-51.1) L 10/07/24 01:48
Monocytes % 6.1 % (1.7-9.3) 10/07/24 01:48
Eosinophils % 1.0 % (0-6) 10/07/24 01:48
Basophils % 0.4 % (0-2) 10/07/24 01:48
Abs Neuts (Manual) 8.1 10^3/uL (1.4-6.5) H 10/08/24 04:20
Segmented Neutrophils 80 % (42-75) H 10/08/24 04:20
Band Neutrophils 4 % (0-3) H 10/08/24 04:20
Lymphocytes (Manual) 5 % (20-51) L 10/08/24 04:20
ESR 17 mm/hour (0-20) 10/06/24 13:26
PT 29.0 Sec (11.4-14.6) H 10/06/24 13:35
INR 2.74 10/06/24 13:35
Lactic Acid Cancelled 10/07/24 11:00
C-Reactive Protein 30.80 mg/L (0.0-10.00) H 10/06/24 14:34
Ur Squamous Epith Cells 3-5 /LPF (Few) 10/06/24 15:16
Microbiology Results
Micro:
10/06/24 15:45 Blood Culture - Preliminary
Blood/Venous No Growth in 48 hours- Final report to follow
10/06/24 15:16 Blood Culture - Preliminary
Blood/Venous No Growth in 48 hours- Final report to follow
10/07/24 01:48 MRSA Screen - Final
Nose No Methicillin Resistant Staphylococcus aureus isolated.
10/06/24 15:16 Urine Culture - Final
Urine
10/06/24 18:36 Influenza Types A & B (TRISTAN) - Final
Nasal Swab Negative for Influenza A & B, NAAT
Negative results must be combined with clinical observations
and patient history.
Nucleic Acid Amplification test (NAAT)performed on the
[employer] platform.
Assessment / Plan
Leukocytosis; improved
Recent left knee prosthetic joint infection secondary to Pseudomonas
Lactic acidosis
CKD stage III
NGO cirrhosis with anasarca
Hx hepatic encephalopathy
P A-fib
Diastolic CHF
Hx pituitary cyst
EDELMIRA on CPAP (reportedly noncompliant)
Dyslipidemia
Hypothyroidism
GERD
Morbid obesity
L1 compression fracture
Orthostatic hypotension
HTN
Adrenal insufficiency
Recommendations:
Continue with levofloxacin for now. Dose has been adjusted for her estimated creatinine clearance of 22
Monitor white count and temperature curve
Obtain old records from [facility] for review.
--- NOTE | 2024-10-08 18:08 | PTCARENOTE ---
Pt stated she feels that the rectal trumpet is not in correctly, rectal trumpet and purewick removed, pt cleaned, calazime cream applied.
[2024-10-08] MEDS: LEVAQUIN 150 IV (21:14)
[2024-10-08] MEDS: PEPCID 20 MG IV (21:15)
[2024-10-08] MEDS: NSS (PRESERVATIVE FREE) 8 ML IV (21:15)
[2024-10-08 21:26] LABS: Glucose - Point of Care 159 mg/dl (70-99)
[2024-10-08] MEDS: MELATONIN 5 MG PO (23:44)
[2024-10-09] VITALS (7 sets, daily range): BP systolic 113–152; BP diastolic 73–88; PULSE 114; O2SAT 94; BMI 37.6
[2024-10-09 03:15] LABS: Glucose - Point of Care 87 mg/dl (70-99)
[2024-10-09 05:54] LABS: ALT (SGPT) 27 U/L (0-35); AST (SGOT) 49 U/L (14-36); Albumin 2.9 g/dl (3.5-5.0); Alkaline Phosphatase 195 U/L (38-126); Blood Urea Nitrogen 55 mg/dl (7-17); Calcium 8.8 mg/dl (8.4-10.2); Carbon Dioxide 22 mmol/L (22-30); Chloride 107 mmol/L (98-107); Estimated Creatinine Clearance 28 ml/min; Glucose 71 mg/dl (70-99); Lactic Acid 1.6 mmol/L (0.7-2.0); Potassium 4.5 mmol/L (3.5-5.1); Sodium 139 mmol/L (135-145); Total Bilirubin 1.8 mg/dl (0.2-1.3); eGFR 28.66
[2024-10-09] MEDS: SYNTHROID 75 MCG PO (06:04)
[2024-10-09 06:10] LABS: Hematocrit 31.7 % (37.0-47.0); Hemoglobin 10.3 g/dL (12.0-16.0); Mean Corp Hgb Conc. 32.5 g/dL (33.0-37.0); Mean Corpuscular Hgb 30.7 pg (27.0-31.0); Mean Corpuscular Volume 94.6 fL (81.0-99.0); Mean Platelet Volume 10.3 fL (7.4-10.4); Platelet Count 134 10^3/uL (130-400); Red Blood Cell Count 3.35 10^6/uL (4.20-5.40); Red Cell Dist. Width 19.9 % (11.5-14.5); White Blood Cell Count 6.9 10^3/uL (4.8-10.8)
[2024-10-09 07:39] LABS: Glucose - Point of Care 96 mg/dl (70-99)
[2024-10-09] MEDS: DUPHALAC/CHRONULAC PO ×4 (08:58→21:18)
[2024-10-09] MEDS: NOVOLOG FLEXPEN-LOW RESISTANCE SC ×2 (08:58→13:03)
[2024-10-09] MEDS: ELIQUIS 5 MG PO ×2 (08:59→19:55)
[2024-10-09] MEDS: DELTASONE 5 MG PO (08:59)
[2024-10-09] MEDS: CYMBALTA DELAYED RELEASE 30 MG PO (08:59)
[2024-10-09] MEDS: FLORASTOR 250 MG PO ×2 (08:59→19:55)
[2024-10-09] MEDS: CYTOMEL 5 MICROGRAM PO (08:59)
[2024-10-09] MEDS: ProAmatine 10 MG PO (08:59)
[2024-10-09] MEDS: ZEBETA 10 MG PO (09:00)
[2024-10-09] MEDS: XIFAXAN 550 MG PO ×2 (09:00→19:55)
--- NOTE | 2024-10-09 10:18 | CM ---
Reviewed the chart notes. PT recommending SNF/rehab. Referral for [facility] with [facility] sent via [facility]. CM continues to be available to patient/family and is monitoring medical plan for needs at discharge.
Plan: Discharge to SNF/rehab once bed secured and precert obtained.
[2024-10-09 10:25] LABS: % Basophils 0.4 % (0-2); % Eosinophils 5.2 % (0-6); % Immature Granulocytes 6.7 % (0-0.5); % Lymphocytes 9.8 % (20.5-51.1); % Monocytes 13.7 % (1.7-9.3); % Neutrophils 64.2 % (42.2-75.2); Absolute Eosinophils 0.4 10^3/uL (0-0.7); Absolute Immature Granulocytes 0.5 10^3/uL (0-0.05); Absolute Lymphocytes 0.7 10^3/uL (1.2-3.4); Absolute Monocytes 0.9 10^3/uL (0.1-0.6); Absolute Neutrophils 4.4 10^3/uL (1.4-6.5); Nucleated Red Blood Cells % 0.3 %
[2024-10-09 12:58] LABS: Glucose - Point of Care 128 mg/dl (70-99)
--- NOTE | 2024-10-09 13:05 | PN.CDI ---
CDI
- -
CDI:
Physician Documentation Request
Admit Date: 10/06/24 19:56
Dear Doctor Sherwin,
Please review the following and provide your response in the progress notes.
Clinical Indicators:
- Wound note indicates Stage 1 left heel pressure injury, POA
Physician documentation of the type and location of wounds is required for compliant documentation. Based on the above clinical findings and your assessment, please provide the following in your progress note:
1. Location of the ulcer/wound, including laterality.
2. Type (etiology) of ulcer/wound:
- Diabetic ulcer
- Arterial (ischemic) ulcer
- Traumatic wound
- Venous stasis ulcer
- Pressure (decubitus) ulcer
- Non-healing surgical wound
- Other
- Unable to determine
Use of terms such as suspected, likely, concern for, or probable (associated with a specific diagnosis that is being evaluated, monitored, or treated as if it exists) are acceptable and can be coded in the inpatient setting, when documented at the
time of discharge.
Thank you,
Jovon Rahman RN
CDI Specialist
Please use your independent medical judgment in providing your response.
*Source: National Pressure Ulcer Advisory Panel (NPUAP)
--- NOTE | 2024-10-09 15:15 | W.PN.HOSP.TC ---
Today's Communication/Plan
-
IV antibiotics as per ID.
Renal function improves. Continue holding diuretics
Physical therapy evaluation
Assessment / Plan
Assessment / Plan
Impression
Sepsis present on admission
Acute on chronic hypotension presumably secondary to septic shock
Toxic metabolic encephalopathy on presentation
Conditions prior to admission:
Recent hospitalization in outside hospital for left PE septic prosthetic arthritis reportedly culture positive for Pseudomonas. Discharged on ciprofloxacin
UTI with Klebsiella reported at that admission.
Reported penicillin and meropenem allergy
Acute kidney injury requiring 3 hemodialysis session.
CKD stage IIIb with baseline creatinine 1.4.
MAZARIEGOS cirrhosis with anasarca.
History of hepatic encephalopathy.
Paroxysmal atrial fibrillation baseline anticoagulation with Eliquis
Chronic diastolic CHF
History of pituitary cyst
Obstructive sleep apnea not compliant with CPAP
Dyslipidemia
Hypothyroidism on replacement
GERD.
Obesity with BMI of 38 chronic compression fracture at L1
Plan:
Presentation with clinical sepsis.
Currently afebrile with trending down WBC.
Possible sources: Left knee prosthetic arthritis, versus UTI, versus left lower lobe pneumonia.
Empiric antibiotics levofloxacin adjusted to renal function.
Blood cultures negative to date
Urine cultures negative to date
ID consultation appreciated
Hypotension multifactorial possibly due to septic shock as well as underlying cirrhosis with systemic vasodilation
Acute on chronic hypotension
Had not required pressors.
As hemodynamics relatively improved and mental status back to baseline hold further IV fluids
Hold antihypertensives including diltiazem
Hold Bumex and Aldactone
Continue midodrine 10 mg p.o. 3 times daily
Toxic metabolic encephalopathy.
Suspect secondary to acute illness
Doubt hepatic encephalopathy.
No focal findings on exam.
CT scan of the head with no acute abnormal
SANTOSH
Patient baseline creatinine 1.4.
2.7 upon presentation.
Reported required 3 hemodialysis session with recent outside hospitalization.
Nephrology consulted.
Monitor urine output.
Monitor for retention.
Hold Bumex and Aldactone for now
Observe off IV fluids
MAZARIEGOS cirrhosis.
Noted lethargic on admission, currently improving.
Hepatic encephalopathy ruled out.
Continue lactulose and rifaximin.
Severe anasarca.
Would be difficult to mobilize fluid from third spacing.
Hold Bumex and Aldactone acutely reassessing hemodynamics.
Paroxysmal atrial fibrillation.
Monitor on telemetry.
Hold Cardizem.
Continue Eliquis
Chronic CHF preserved EF.
Echo 03/15 LVEF 48-50%.
Monitor volume status closely.
Resume diuretics when hemodynamics are stable
Hypothyroidism on replacement
Obstructive sleep apnea.
Not compliant with CPAP.
Full code
Anticipated Discharge: 24 - 48 hours
Subjective/Interval History
-
Date of Service: October 09, 2024
Objective Data
-
Labs:
Laboratory Results
10/09/24
05:09
WBC 6.9
Hgb 10.3 L
Hct 31.7 L
Plt Count 134
Sodium 139
Potassium 4.5
Chloride 107
Carbon Dioxide 22
BUN 55 H
Creatinine 1.8 H
Glucose 71
Calcium 8.8
Total Bilirubin 1.8 H
AST 49 H
ALT 27
Alkaline Phosphatase 195 H
Vital Signs:
Vital Signs
Temp Pulse Resp BP Pulse Ox
97.8 F 101 18 113/73 96
10/09/24 11:05 10/09/24 11:05 10/09/24 11:05 10/09/24 11:05 10/09/24 12:56
I&O
10/08/24 10/09/24 10/10/24
06:59 06:59 06:59
Intake Total 300 / 300 790 / 790
Output Total 1300 / 1300 600 / 600
Balance -1000 / -1000 190 / 190
Physical Exam
-
General: Well Developed and No Apparent Distress
HEENT: Normocephalic, Atraumatic and Moist Mucous Membranes
Respiratory: Clear to Auscultation
Cardiac: Regular Rhythm and S1/S2; Negative Murmur, Rub or Gallop
GI: Soft, Nontender, Nondistended and Normal Bowel Sounds; Negative Organomegaly
Rectal: Deferred by Provider
Musculoskeletal: No Clubbing, No Cyanosis and Other (Anasarca)
Skin: Negative Rash
Neuro: Awake, Alert, Oriented and Nonfocal/Grossly Intact
--- NOTE | 2024-10-09 15:24 | W.PN.ID1 ---
Date of Service
Date of Service: October 09, 2024
Today's Communication
Continue antibiotics.
Assessment / Plan
Leukocytosis; improved
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
Lactic acidosis
Protein calorie malnutrition (albumin = 2.9)
Diffuse anasarca secondary to above
CKD stage III
MAZARIEGOS cirrhosis with anasarca
Hx hepatic encephalopathy
P A-fib
Diastolic CHF
Hx pituitary cyst
EDELMIRA on CPAP (reportedly noncompliant)
Dyslipidemia
Hypothyroidism
GERD
Morbid obesity
L1 compression fracture
Orthostatic hypotension
HTN
Adrenal insufficiency
Recommendations:
Continue with levofloxacin for now. Monitor creatinine and estimated creatinine clearance for dosing adjustment.
Monitor white count and temperature curve
Records request from [facility] faxed; awaiting response.
����������������������������������������������������������
Chief Complaint
-: Clinical Sepsis
Subjective / Review of Systems
Review of Systems: No Fever and No Chills
Vital Signs / Physical Exam
Vital Signs
Vital Signs
Temp Pulse Resp BP Pulse Ox
97.8 F 101 18 113/73 96
10/09/24 11:05 10/09/24 11:05 10/09/24 11:05 10/09/24 11:05 10/09/24 12:56
Physical Exam
Constitutional: Chronically Ill, Non-toxic and Obese
Head: Normocephalic
Eyes: No Conjunctival Hemorrhage and Sclera Anicteric
Cardiovascular: S1/S2; Negative S3/S4
Pulmonary: Non Labored
Gastrointestinal: Soft, Normal Bowel Sounds, No Rebound and No Guarding
Extremities: Edema (4+ edema of upper and lower extremities)
Skin: Other (Extremely thin skin, with hemorrhagic bullae noted on bilateral upper extremities.)
Neurological: Awake and Alert
Psychological: Calm
Objective Data
Lab Data
Lab Results
10/09/24 05:09
10/09/24 05:09
ESR 17 mm/hour (0-20) 10/06/24 13:26
PT 29.0 Sec (11.4-14.6) H 10/06/24 13:35
INR 2.74 10/06/24 13:35
APTT 38.6 Sec (23.4-35.0) H 10/06/24 13:35
Estimated Creat Clear 28 ml/min 10/09/24 05:09
Lactic Acid 1.6 mmol/L (0.7-2.0) 10/09/24 05:09
Total Bilirubin 1.8 mg/dl (0.2-1.3) H 10/09/24 05:09
AST 49 U/L (14-36) H 10/09/24 05:09
ALT 27 U/L (0-35) 10/09/24 05:09
Alkaline Phosphatase 195 U/L (38-126) H 10/09/24 05:09
C-Reactive Protein 30.80 mg/L (0.0-10.00) H 10/06/24 14:34
Most recent labs reviewed.
Micro Results:
10/06/24 15:45 Blood Culture - Preliminary
Blood/Venous No Growth in 48 hours- Final report to follow
10/06/24 15:16 Blood Culture - Preliminary
Blood/Venous No Growth in 48 hours- Final report to follow
10/07/24 01:48 MRSA Screen - Final
Nose No Methicillin Resistant Staphylococcus aureus isolated.
10/06/24 15:16 Urine Culture - Final
Urine
10/06/24 18:36 Influenza Types A & B (TRISTAN) - Final
Nasal Swab Negative for Influenza A & B, NAAT
Negative results must be combined with clinical observations
and patient history.
Nucleic Acid Amplification test (NAAT)performed on the
[employer] platform.
[2024-10-09] MEDS: ProAmatine PO ×2 (16:06→21:18)
[2024-10-09 16:37] LABS: Glucose - Point of Care 299 mg/dl (70-99)
--- NOTE | 2024-10-09 16:59 | W.PN.NEPH.PH ---
Today's Communication / Plan
-
Continue supportive care no changes made
Assessment/Plan
-
Impression:
Sepsis/PNA
UTI hx
SANTOSH/CKD (2.4)
Hx of Adrenal insufficiency
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
Abdominal ascites/hypoalbuminemia
MAZARIEGOS cirrhosis
Paroxysmal atrial fibrillation
Chronic diastolic heart failure/history of hepatic encephalopathy
Hypothyroidism
Chronic compression L1 lumbar vertebrae
Nonambulatory
Plan:
SANTOSH:
-Patient's creatinine is at 2.3 which is her baseline following discharge from outside hospital when it was 2.4 following 3 dialysis sessions
-There is no acute dialysis requirement today
-I suspect her underlying chronic kidney disease is due to multiple factors including underlying infection, cirrhosis with poor effective circulating volume, diastolic heart failure, and ongoing hemodynamic instability
-continue 10mg midodrine TID in the setting of her hypotension
-Her underlying hypoalbuminemia which is likely a function of her cirrhosis limits effective diuresis due to hemodynamic instability
-Aggressive diuresis for her obvious peripheral volume overload will prove difficult
-She is not a good long-term dialysis candidate even if dialysis would be required given her advanced comorbidities of MAZARIEGOS cirrhosis diastolic heart failure with ongoing hemodynamic instability
-Levaquin renally dosed
Continue supportive care
Creatinine improving down to 1.8 today
Weights are down 3 kg since admission
-
-
Date of Service: October 09, 2024
CC / HPI / ROS
-
Chief Complaint:
Acute on chronic kidney disease secondary to cirrhosis, sepsis
History of Present Illness:
SANTOSH improved creatinine at baseline
Review of Systems: No chest pain or shortness of breath nonoliguric
Labs
-
Labs:
WBC 6.9 10^3/uL (4.8-10.8) 10/09/24 05:09
RBC 3.35 10^6/uL (4.20-5.40) L 10/09/24 05:09
Hgb 10.3 g/dL (12.0-16.0) L 10/09/24 05:09
Hct 31.7 % (37.0-47.0) L 10/09/24 05:09
Plt Count 134 10^3/uL (130-400) 10/09/24 05:09
Sodium 139 mmol/L (135-145) 10/09/24 05:09
Potassium 4.5 mmol/L (3.5-5.1) 10/09/24 05:09
Chloride 107 mmol/L (98-107) 10/09/24 05:09
Carbon Dioxide 22 mmol/L (22-30) 10/09/24 05:09
BUN 55 mg/dl (7-17) H 10/09/24 05:09
Creatinine 1.8 mg/dL (0.6-1.0) H 10/09/24 05:09
eGFR 28.66 10/09/24 05:09
Glucose 71 mg/dl (70-99) 10/09/24 05:09
Calcium 8.8 mg/dl (8.4-10.2) 10/09/24 05:09
Phosphorus 5.0 mg/dl (2.5-4.5) H 10/07/24 01:48
Cdy-Z-Dlbadsrrptz Pept 1140 pg/ml 10/06/24 14:34
Albumin 2.9 g/dl (3.5-5.0) L 10/09/24 05:09
Physical Exam
-
Vital Signs:
Vital Signs
Temp Pulse Resp BP Pulse Ox
97.9 F 124 18 130/80 94
10/09/24 15:25 10/09/24 16:06 10/09/24 15:25 10/09/24 16:06 10/09/24 15:25
Cardiovascular:: Regular rate and rhythm
Respiratory:: Bilateral: CTA
Lung Excursion:: Normal
Abdomen:: Soft
Bowel Sounds:: Normal
Extremity Edema:: +2: Bilateral:
Gutiérrez Catheter: Yes
[2024-10-09] MEDS: NOVOLOG FLEXPEN-LOW RESISTANCE 3 UNITS SC (17:14)
[2024-10-09] MEDS: DUPHALAC/CHRONULAC 20 GRAMS PO (17:15)
[2024-10-09] MEDS: DESENEX/MITRAZOL/ZEASORB 1 APPLIC TOPICAL (19:55)
[2024-10-09] MEDS: MELATONIN 5 MG PO (21:20)
[2024-10-09 21:28] LABS: Glucose - Point of Care 200 mg/dl (70-99)
[2024-10-10 02:50] VITALS: BP 119/74
[2024-10-10] MEDS: SYNTHROID 75 MCG PO (04:50)
[2024-10-10 05:34] LABS: ALT (SGPT) 27 U/L (0-35); AST (SGOT) 39 U/L (14-36); Albumin 2.7 g/dl (3.5-5.0); Alkaline Phosphatase 201 U/L (38-126); Blood Urea Nitrogen 53 mg/dl (7-17); Calcium 8.9 mg/dl (8.4-10.2); Carbon Dioxide 26 mmol/L (22-30); Chloride 104 mmol/L (98-107); Estimated Creatinine Clearance 29 ml/min; Glucose 114 mg/dl (70-99); Potassium 5.3 mmol/L (3.5-5.1); Sodium 137 mmol/L (135-145); Total Bilirubin 1.7 mg/dl (0.2-1.3); Total Protein 4.9 g/dl (6.3-8.2)
[2024-10-10 05:40] LABS: Hematocrit 33.1 % (37.0-47.0); Hemoglobin 10.4 g/dL (12.0-16.0); Mean Corp Hgb Conc. 31.4 g/dL (33.0-37.0); Mean Corpuscular Hgb 30.2 pg (27.0-31.0); Mean Corpuscular Volume 96.2 fL (81.0-99.0); Mean Platelet Volume 11.1 fL (7.4-10.4); Platelet Count 117 10^3/uL (130-400); Red Blood Cell Count 3.44 10^6/uL (4.20-5.40); Red Cell Dist. Width 20.2 % (11.5-14.5); White Blood Cell Count 6.3 10^3/uL (4.8-10.8)
[2024-10-10 07:35] VITALS: BP 122/86
[2024-10-10 07:52] LABS: Glucose - Point of Care 83 mg/dl (70-99)
[2024-10-10 07:54] VITALS: BMI 37.6
[2024-10-10] MEDS: NOVOLOG FLEXPEN-LOW RESISTANCE SC ×3 (07:55→17:32)
[2024-10-10 07:56] VITALS: BMI 37.6
[2024-10-10 08:25] LABS: Absolute Neutrophils -Man Diff 3.8 10^3/uL (1.4-6.5); Band Neutrophils 11 % (0-3); Eosinophils 7 % (0-6); Lymphocytes 17 % (20-51); Metamyelocytes 4 % (-); Monocytes 7 % (2-9); Myelocytes 4 % (-); Segmented Neutrophils 50 % (42-75)
[2024-10-10 08:26] LABS: Anisocytosis 1+; Hypochromasia 2+; Normal RBC Morphology No; Ovalocytes 1+; Platelets Checked Yes; Polychromasia 1+; Target Cells 1+; Total Cells Counted 100
[2024-10-10] MEDS: ZEBETA 10 MG PO (09:03)
[2024-10-10] MEDS: FLORASTOR 250 MG PO ×2 (09:05→20:25)
[2024-10-10] MEDS: ProAmatine 10 MG PO ×2 (09:05→17:42)
[2024-10-10] MEDS: CYTOMEL 5 MICROGRAM PO (09:05)
[2024-10-10] MEDS: DUPHALAC/CHRONULAC 20 GRAMS PO ×2 (09:06→22:21)
[2024-10-10] MEDS: CYMBALTA DELAYED RELEASE 30 MG PO (09:06)
[2024-10-10] MEDS: XIFAXAN 550 MG PO ×2 (09:06→20:25)
[2024-10-10] MEDS: DELTASONE 5 MG PO (09:06)
[2024-10-10] MEDS: ELIQUIS 5 MG PO ×2 (09:06→20:25)
[2024-10-10] MEDS: DESENEX/MITRAZOL/ZEASORB 1 APPLIC TOPICAL ×2 (09:11→20:25)
--- NOTE | 2024-10-10 10:49 | W.PN.ID1 ---
Date of Service
Date of Service: October 10, 2024
Today's Communication
Continue continue antibiotics. Transition back to Cipro.
Assessment / Plan
Leukocytosis; improved
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
Lactic acidosis
Protein calorie malnutrition (albumin = 2.9)
Diffuse anasarca secondary to above
CKD stage III
MAZARIEGOS cirrhosis with anasarca
Hx hepatic encephalopathy
P A-fib
Diastolic CHF
Hx pituitary cyst
EDELMIRA on CPAP (reportedly noncompliant)
Dyslipidemia
Hypothyroidism
GERD
Morbid obesity
L1 compression fracture
Orthostatic hypotension
HTN
Adrenal insufficiency
Recommendations:
Continue antibiotics. Transition back to ciprofloxacin. Monitor creatinine and estimated creatinine clearance for dosing adjustment.
Monitor white count and temperature curve
Records request from [facility] faxed; still awaiting response.
����������������������������������������������������������
Chief Complaint
-: Clinical Sepsis
Subjective / Review of Systems
Patient seen and examined. Has remained afebrile. Blood pressure stable. No specific complaints.
Vital Signs / Physical Exam
Vital Signs
Vital Signs
Temp Pulse Resp BP Pulse Ox
97.8 F 127 16 122/86 96
10/10/24 07:35 10/10/24 09:03 10/10/24 07:35 10/10/24 09:03 10/10/24 07:35
Physical Exam
Constitutional: No Acute Distress, Comfortable, Chronically Ill, Non-toxic and Obese
Head: Normocephalic
Eyes: No Conjunctival Hemorrhage and Sclera Anicteric
Cardiovascular: S1/S2; Negative S3/S4
Pulmonary: Non Labored
Gastrointestinal: Soft, Normal Bowel Sounds, No Rebound and No Guarding
Extremities: Edema (4+ edema of upper and lower extremities)
Skin: Other (Extremely thin skin, with hemorrhagic bullae noted on bilateral upper extremities.)
Wound: Other (Left knee with inferior superficial wound. Mild slough in base. No periwound erythema. No significant purulence.)
Neurological: Awake and Alert
Psychological: Calm
Objective Data
Lab Data
Lab Results
10/10/24 04:51
10/10/24 04:51
ESR 17 mm/hour (0-20) 10/06/24 13:26
PT 29.0 Sec (11.4-14.6) H 10/06/24 13:35
INR 2.74 10/06/24 13:35
APTT 38.6 Sec (23.4-35.0) H 10/06/24 13:35
Estimated Creat Clear 29 ml/min 10/10/24 04:51
Lactic Acid 1.6 mmol/L (0.7-2.0) 10/09/24 05:09
Total Bilirubin 1.7 mg/dl (0.2-1.3) H 10/10/24 04:51
AST 39 U/L (14-36) H 10/10/24 04:51
ALT 27 U/L (0-35) 10/10/24 04:51
Alkaline Phosphatase 201 U/L (38-126) H 10/10/24 04:51
C-Reactive Protein 30.80 mg/L (0.0-10.00) H 10/06/24 14:34
Most recent labs reviewed.
Micro Results:
10/06/24 15:45 Blood Culture - Preliminary
Blood/Venous No Growth in 72 hours- Final report to follow
10/06/24 15:16 Blood Culture - Preliminary
Blood/Venous No Growth in 72 hours- Final report to follow
10/07/24 01:48 MRSA Screen - Final
Nose No Methicillin Resistant Staphylococcus aureus isolated.
10/06/24 15:16 Urine Culture - Final
Urine
10/06/24 18:36 Influenza Types A & B (TRISTAN) - Final
Nasal Swab Negative for Influenza A & B, NAAT
Negative results must be combined with clinical observations
and patient history.
Nucleic Acid Amplification test (NAAT)performed on the
[employer] platform.
Care Review
Plan reviewed with: Physician (Hospitalist)
[2024-10-10 11:05] VITALS: BP 124/91
[2024-10-10 11:45] LABS: Glucose - Point of Care 119 mg/dl (70-99)
--- NOTE | 2024-10-10 11:47 | W.PN.NEPH.PH ---
Today's Communication / Plan
-
Add back Bumex 1 mg p.o. daily
-Follow BMP
Assessment/Plan
-
Impression:
Sepsis/PNA
UTI hx
SANTOSH/CKD (2.4)
Hx of Adrenal insufficiency
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
Abdominal ascites/hypoalbuminemia
MAZARIEGOS cirrhosis
Paroxysmal atrial fibrillation
Chronic diastolic heart failure/history of hepatic encephalopathy
Hypothyroidism
Chronic compression L1 lumbar vertebrae
Nonambulatory
Plan:
SANTOSH:
-Patient's creatinine is down to 1.7 which is below her baseline following discharge from outside hospital when it was 2.4 following 3 dialysis sessions
-There is no acute dialysis requirement
-I suspect her underlying chronic kidney disease is due to multiple factors including underlying infection, cirrhosis with poor effective circulating volume, diastolic heart failure, and ongoing hemodynamic instability
-continue 10mg midodrine TID in the setting of her hypotension
-Her underlying hypoalbuminemia which is likely a function of her cirrhosis limits effective diuresis due to hemodynamic instability
-Aggressive diuresis for her obvious peripheral volume overload will prove difficult
-She is not a good long-term dialysis candidate even if dialysis would be required given her advanced comorbidities of MAZARIEGOS cirrhosis diastolic heart failure with ongoing hemodynamic instability
-Will add back Bumex 1 mg p.o. daily
Continue supportive care
Creatinine improving down to 1.8 today
Weights are down 3 kg since admission
-
-
Date of Service: October 10, 2024
CC / HPI / ROS
-
Chief Complaint:
Acute on chronic kidney disease secondary to cirrhosis, sepsis
History of Present Illness:
SANTOSH improved creatinine at baseline down to 1.7
Hemodynamically labile on midodrine support 3 times daily
Remains on ciprofloxacin
Review of Systems: No chest pain or shortness of breath nonoliguric
No fevers
Labs
-
Labs:
WBC 6.3 10^3/uL (4.8-10.8) 10/10/24 04:51
RBC 3.44 10^6/uL (4.20-5.40) L 10/10/24 04:51
Hgb 10.4 g/dL (12.0-16.0) L 10/10/24 04:51
Hct 33.1 % (37.0-47.0) L 10/10/24 04:51
Plt Count 117 10^3/uL (130-400) L 10/10/24 04:51
Sodium 137 mmol/L (135-145) 10/10/24 04:51
Potassium 5.3 mmol/L (3.5-5.1) H 10/10/24 04:51
Chloride 104 mmol/L (98-107) 10/10/24 04:51
Carbon Dioxide 26 mmol/L (22-30) 10/10/24 04:51
BUN 53 mg/dl (7-17) H 10/10/24 04:51
Creatinine 1.7 mg/dL (0.6-1.0) H 10/10/24 04:51
eGFR 30.70 10/10/24 04:51
Glucose 114 mg/dl (70-99) H 10/10/24 04:51
Calcium 8.9 mg/dl (8.4-10.2) 10/10/24 04:51
Phosphorus 5.0 mg/dl (2.5-4.5) H 10/07/24 01:48
Mdu-S-Vwnssalakfk Pept 1140 pg/ml 10/06/24 14:34
Albumin 2.7 g/dl (3.5-5.0) L 10/10/24 04:51
Physical Exam
-
Vital Signs:
Vital Signs
Temp Pulse Resp BP Pulse Ox
97.8 F 124 18 124/91 96
10/10/24 11:05 10/10/24 11:05 10/10/24 11:05 10/10/24 11:05 10/10/24 11:28
Cardiovascular:: Regular rate and rhythm
Respiratory:: Bilateral: CTA
Lung Excursion:: Normal
Abdomen:: Soft
Bowel Sounds:: Normal
Extremity Edema:: +2: Bilateral:
Gutiérrez Catheter: Yes
--- NOTE | 2024-10-10 13:34 | CM ---
Reviewed the chart notes. [facility] accepted patient in [facility]. CM continues to be available to patient/family and is monitoring medical plan for needs at discharge.
Plan: Discharge to [facility] once medically stable and precert obtained.
[2024-10-10] MEDS: CIPRO 750 MG PO (14:07)
[2024-10-10] MEDS: BUMEX 1 MG PO (14:08)
[2024-10-10] MEDS: DUPHALAC/CHRONULAC PO ×2 (14:10→17:42)
[2024-10-10 14:19] VITALS: BP 137/86
[2024-10-10 16:33] LABS: Glucose - Point of Care 123 mg/dl (70-99)
--- NOTE | 2024-10-10 17:07 | W.PN.HOSP.TC ---
Today's Communication/Plan
-
Disorder on oral antibiotics per
Reinstated on Bumex.
Follow BMP
Discharge planing
Assessment / Plan
Assessment / Plan
Impression
Sepsis present on admission
Acute on chronic hypotension presumably secondary to septic shock
Toxic metabolic encephalopathy on presentation
Conditions prior to admission:
Recent hospitalization in outside hospital for left PE septic prosthetic arthritis reportedly culture positive for Pseudomonas. Discharged on ciprofloxacin
UTI with Klebsiella reported at that admission.
Reported penicillin and meropenem allergy
Acute kidney injury requiring 3 hemodialysis session.
CKD stage IIIb with baseline creatinine 1.4.
MAZARIEGOS cirrhosis with anasarca.
History of hepatic encephalopathy.
Paroxysmal atrial fibrillation baseline anticoagulation with Eliquis
Chronic diastolic CHF
History of pituitary cyst
Obstructive sleep apnea not compliant with CPAP
Dyslipidemia
Hypothyroidism on replacement
GERD.
Obesity with BMI of 38 chronic compression fracture at L1
Plan:
Presentation with clinical sepsis.
Currently afebrile with trending down WBC.
Possible sources: Left knee prosthetic arthritis, versus UTI, versus left lower lobe pneumonia.
Empiric antibiotics levofloxacin adjusted to renal function.
Blood cultures negative to date
Urine cultures negative to date
ID consultation appreciated
Transition back to Cipro
Hypotension multifactorial possibly due to septic shock as well as underlying cirrhosis with systemic vasodilation
Acute on chronic hypotension
Had not required pressors.
As hemodynamics relatively improved and mental status back to baseline hold further IV fluids
Hold antihypertensives including diltiazem
Hold Bumex and Aldactone
Continue midodrine 10 mg p.o. 3 times daily
Toxic metabolic encephalopathy.
Suspect secondary to acute illness
Doubt hepatic encephalopathy.
No focal findings on exam.
CT scan of the head with no acute abnormal
SANTOSH
Patient baseline creatinine 1.4.
2.7 upon presentation.
Reported required 3 hemodialysis session with recent outside hospitalization.
Nephrology consulted.
Monitor urine output.
Monitor for retention.
Resume bumex and monitor BMP
MAZARIEGOS cirrhosis.
Noted lethargic on admission, currently improving.
Hepatic encephalopathy ruled out.
Continue lactulose and rifaximin.
Severe anasarca.
Would be difficult to mobilize fluid from third spacing.
Hold Bumex and Aldactone acutely reassessing hemodynamics.
Paroxysmal atrial fibrillation.
Monitor on telemetry.
Hold Cardizem.
Continue Eliquis
Chronic CHF preserved EF.
Echo 03/15 LVEF 48-50%.
Monitor volume status closely.
Resume diuretics when hemodynamics are stable
Hypothyroidism on replacement
Obstructive sleep apnea.
Not compliant with CPAP.
Full code
Anticipated Discharge: 24 - 48 hours
Subjective/Interval History
-
Date of Service: October 10, 2024
Objective Data
-
Labs:
Laboratory Results
10/10/24
04:51
WBC 6.3
Hgb 10.4 L
Hct 33.1 L
Plt Count 117 L
Sodium 137
Potassium 5.3 H
Chloride 104
Carbon Dioxide 26
BUN 53 H
Creatinine 1.7 H
Glucose 114 H
Calcium 8.9
Total Bilirubin 1.7 H
AST 39 H
ALT 27
Alkaline Phosphatase 201 H
Vital Signs:
Vital Signs
Temp Pulse Resp BP Pulse Ox
97.5 F 122 21 137/86 94
10/10/24 14:19 10/10/24 14:19 10/10/24 14:19 10/10/24 14:19 10/10/24 14:19
I&O
10/09/24 10/10/24 10/11/24
06:59 06:59 06:59
Intake Total 790 / 790 840 / 840
Output Total 600 / 600
Balance 190 / 190 840 / 840
Physical Exam
-
General: Well Developed and No Apparent Distress
HEENT: Normocephalic, Atraumatic and Moist Mucous Membranes
Respiratory: Clear to Auscultation
Cardiac: Regular Rhythm and S1/S2; Negative Murmur, Rub or Gallop
GI: Soft, Nontender, Nondistended and Normal Bowel Sounds; Negative Organomegaly
Rectal: Deferred by Provider
Musculoskeletal: No Clubbing, No Cyanosis and Other (Anasarca)
Skin: Negative Rash
Neuro: Awake, Alert, Oriented and Nonfocal/Grossly Intact
[2024-10-10 19:30] VITALS: BP 130/93
[2024-10-10 21:14] LABS: Glucose - Point of Care 211 mg/dl (70-99)
[2024-10-10] MEDS: MELATONIN 5 MG PO (22:21)
[2024-10-10] MEDS: PEPCID 20 MG PO (22:21)
[2024-10-10] MEDS: ProAmatine PO (22:22)
[2024-10-10 23:23] VITALS: BP 115/83
[2024-10-11] VITALS (9 sets, daily range): BP systolic 110–136; BP diastolic 68–98; PULSE 78–91; O2SAT 94–95; BMI 37.9
[2024-10-11] MEDS: SYNTHROID 75 MCG PO (06:06)
[2024-10-11 06:50] LABS: Hematocrit 33.7 % (37.0-47.0); Mean Corp Hgb Conc. 32.6 g/dL (33.0-37.0); Mean Corpuscular Volume 94.9 fL (81.0-99.0); Mean Platelet Volume 10.8 fL (7.4-10.4); Platelet Count 117 10^3/uL (130-400); Red Blood Cell Count 3.55 10^6/uL (4.20-5.40); Red Cell Dist. Width 20.3 % (11.5-14.5)
[2024-10-11 07:09] LABS: ALT (SGPT) 25 U/L (0-35); AST (SGOT) 37 U/L (14-36); Albumin 2.6 g/dl (3.5-5.0); Alkaline Phosphatase 168 U/L (38-126); Blood Urea Nitrogen 53 mg/dl (7-17); Calcium 8.7 mg/dl (8.4-10.2); Carbon Dioxide 27 mmol/L (22-30); Chloride 102 mmol/L (98-107); Estimated Creatinine Clearance 34 ml/min; Glucose 74 mg/dl (70-99); Potassium 5.1 mmol/L (3.5-5.1); Sodium 136 mmol/L (135-145); Total Bilirubin 1.8 mg/dl (0.2-1.3); Total Protein 4.9 g/dl (6.3-8.2); eGFR 35.67
[2024-10-11 07:33] LABS: Absolute Neutrophils -Man Diff 4.6 10^3/uL (1.4-6.5); Atypical Lymphocytes 2 %; Band Neutrophils 11 % (0-3); Eosinophils 4 % (0-6); Lymphocytes 11 % (20-51); Metamyelocytes 2 % (-); Monocytes 13 % (2-9); Myelocytes 1 % (-); Segmented Neutrophils 56 % (42-75)
[2024-10-11 07:34] LABS: Anisocytosis 1+; Hypochromasia 2+; Normal RBC Morphology No; Platelets Checked Yes; Polychromasia 1+
[2024-10-11 07:35] LABS: Ovalocytes 1+; Target Cells 1+; Total Cells Counted 100
--- NOTE | 2024-10-11 07:37 | PN.CDI ---
CDI
- -
CDI:
Physician Documentation Request
Admit Date: 10/06/24 19:56
Dear Doctor Teresa,
Please review the following and provide your response in the progress notes.
Clinical Indicators:
- 10/10 ID note 'Protein calorie malnutrition (albumin = 2.9)' without specificity
- BMI 37-38 - no loss of weight
- During admission, energy intake >50%
Based on the above information, your assessment, and ASPEN criteria which most accurately represents the patient's nutritional status?
Malnutrition (specify if mild, moderate or severe)
No nutritional deficiency
Other (please specify)
Rock Criteria ([facility] Hospitalist 2017)
2 or more criteria must be present for either
non severe or severe malnutrition
Note that the criteria differs related to the
presence of an acute or chronic illness
Acute Illness Chronic Illness
Energy Intake Non Severe: <75% for >7 days Non Severe: <75% for >1 month
Severe: <50% for >5 days Severe: <75% for >1 month
Weight Loss Non Severe: 1-2% over 1 week Non Severe: 5% over 1 month
5% over 1 month 7.5% over 3 months
7.5% over 3 months 10% over 6 months
1 year N/A 20% over 1 year
Severe: >2% over 1 week Severe: >5% over 1 month
>5% over 1 month >7.5% over 3 months
>7.5% over 3 months >10% over 6 months
1 year N/A >20% over 1 year
Body Fat Non Severe: Mild Decrease Non Severe: Mild Loss
Severe: Moderate Decrease Severe: Severe Loss
Muscle Mass Non Severe: Mild Decrease Non Severe: Mild Loss
Severe: Moderate Decrease Severe: Severe Loss
Fluid Accumulation Non Severe: Mild Accumulation Non Severe: Mild Accumulation
Severe: Moderate to severe Severe: Moderate to severe
accumulation accumulation
Reduced Aluminum Pourer Strength Non Severe: N/A Non Severe: N/A
Severe: Measurably reduced Severe: Measurably reduced
Additional criteria that can be used to Determine if Mild or Moderate Malnutrition ([employer]ck Manual 2018)
Mild Moderate Severe
Albumin gm/dl <3.0 gm/dl <2.5 gm/dl <2.0 gm/dl
Pre Albumin mg/dl <15 gm/dl <10 mg/dl <5.0 mg/dl
BMI <18.5 <17 <16
Use of terms such as suspected, likely, concern for, or probable (associated with a specific diagnosis that is being evaluated, monitored, or treated as if it exists) are acceptable and can be coded in the inpatient setting, when documented at the
time of discharge.
Thank you,
Jovon Rahman RN
CDI Specialist
Please use your independent medical judgment in providing your response.
[2024-10-11 08:13] LABS: Glucose - Point of Care 64 mg/dl (70-99)
[2024-10-11 08:42] LABS: Glucose - Point of Care 81 mg/dl (70-99)
[2024-10-11] MEDS: NOVOLOG FLEXPEN-LOW RESISTANCE SC ×3 (09:10→17:24)
[2024-10-11] MEDS: DELTASONE 5 MG PO (09:15)
[2024-10-11] MEDS: ProAmatine 10 MG PO ×2 (09:16→17:11)
[2024-10-11] MEDS: XIFAXAN 550 MG PO ×2 (09:17→20:36)
[2024-10-11] MEDS: BUMEX 1 MG PO ×2 (09:17→20:36)
[2024-10-11] MEDS: CIPRO 750 MG PO (09:18)
[2024-10-11] MEDS: CARDIZEM CD 120 MG PO (09:18)
[2024-10-11] MEDS: ZEBETA 10 MG PO (09:18)
[2024-10-11] MEDS: CYTOMEL 5 MICROGRAM PO (09:19)
[2024-10-11] MEDS: ELIQUIS 5 MG PO ×2 (09:19→20:35)
[2024-10-11] MEDS: FLORASTOR 250 MG PO ×2 (09:19→20:35)
[2024-10-11] MEDS: CYMBALTA DELAYED RELEASE 30 MG PO (09:19)
[2024-10-11] MEDS: DUPHALAC/CHRONULAC 20 GRAMS PO ×2 (09:19→22:20)
[2024-10-11] MEDS: DESENEX/MITRAZOL/ZEASORB 1 APPLIC TOPICAL ×2 (09:30→20:36)
--- NOTE | 2024-10-11 10:03 | W.PN.NEPH.PH ---
Today's Communication / Plan
-
Escalate Bumex to 1 mg twice daily
Follow BMP
Assessment/Plan
-
Impression:
Sepsis/PNA
UTI hx
SANTOSH/CKD (2.4)
Hx of Adrenal insufficiency
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
Abdominal ascites/hypoalbuminemia
MAZARIEGOS cirrhosis
Paroxysmal atrial fibrillation
Chronic diastolic heart failure/history of hepatic encephalopathy
Hypothyroidism
Chronic compression L1 lumbar vertebrae
Nonambulatory
Plan:
SANTOSH:
-Patient's creatinine is down to 1.5 which is below her baseline following discharge from outside hospital when it was 2.4 following 3 dialysis sessions
-There is no acute dialysis requirement
-I suspect her underlying chronic kidney disease is due to multiple factors including underlying infection, cirrhosis with poor effective circulating volume, diastolic heart failure, and ongoing hemodynamic instability
-continue 10mg midodrine TID in the setting of her hypotension
-Her underlying hypoalbuminemia which is likely a function of her cirrhosis limits effective diuresis due to hemodynamic instability
-Aggressive diuresis for her obvious peripheral volume overload will prove difficult, but I will escalate her Bumex to 1 mg p.o. twice daily
-She is not a good long-term dialysis candidate even if dialysis would be required given her advanced comorbidities of MAZARIEGOS cirrhosis diastolic heart failure with ongoing hemodynamic instability
-Would hold off on Aldactone given propensity for hyperkalemia
-
-
Date of Service: October 11, 2024
CC / HPI / ROS
-
Chief Complaint:
Acute on chronic kidney disease secondary to cirrhosis, sepsis
History of Present Illness:
SANTOSH improved creatinine at baseline down to 1.5
Hemodynamically labile on midodrine support 3 times daily
Remains on ciprofloxacin
Review of Systems:
No chest pain or shortness of breath nonoliguric
No fevers
Weight up
Labs
-
Labs:
WBC 7.0 10^3/uL (4.8-10.8) 10/11/24 06:20
RBC 3.55 10^6/uL (4.20-5.40) L 10/11/24 06:20
Hgb 11.0 g/dL (12.0-16.0) L 10/11/24 06:20
Hct 33.7 % (37.0-47.0) L 10/11/24 06:20
Plt Count 117 10^3/uL (130-400) L 10/11/24 06:20
Sodium 136 mmol/L (135-145) 10/11/24 06:20
Potassium 5.1 mmol/L (3.5-5.1) 10/11/24 06:20
Chloride 102 mmol/L (98-107) 10/11/24 06:20
Carbon Dioxide 27 mmol/L (22-30) 10/11/24 06:20
BUN 53 mg/dl (7-17) H 10/11/24 06:20
Creatinine 1.5 mg/dL (0.6-1.0) H 10/11/24 06:20
eGFR 35.67 10/11/24 06:20
Glucose 74 mg/dl (70-99) 10/11/24 06:20
Calcium 8.7 mg/dl (8.4-10.2) 10/11/24 06:20
Phosphorus 5.0 mg/dl (2.5-4.5) H 10/07/24 01:48
Zqg-X-Ezokfssqzfg Pept 1140 pg/ml 10/06/24 14:34
Albumin 2.6 g/dl (3.5-5.0) L 10/11/24 06:20
Physical Exam
-
Vital Signs:
Vital Signs
Temp Pulse Resp BP Pulse Ox
97.6 F 131 18 121/83 94
10/11/24 07:59 10/11/24 09:16 10/11/24 07:59 10/11/24 09:16 10/11/24 07:59
Cardiovascular:: Regular rate and rhythm
Respiratory:: Bilateral: CTA
Lung Excursion:: Normal
Abdomen:: Soft
Bowel Sounds:: Normal
Extremity Edema:: +2: Bilateral:
Gutiérrez Catheter: Yes
[2024-10-11 11:58] LABS: Glucose - Point of Care 115 mg/dl (70-99)
[2024-10-11] MEDS: DUPHALAC/CHRONULAC PO ×2 (12:39→17:27)
--- NOTE | 2024-10-11 13:17 | W.PN.ID1 ---
Date of Service
Date of Service: October 11, 2024
Today's Communication
Continue antibiotics.
Assessment / Plan
Leukocytosis; improved
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
Lactic acidosis
Protein calorie malnutrition (albumin = 2.9)
- chronic, mild (moderate to severe fluid accumulation; albumin <3.0)
Diffuse anasarca secondary to above
CKD stage III
MAZARIEGOS cirrhosis with anasarca
Hx hepatic encephalopathy
P A-fib
Diastolic CHF
Hx pituitary cyst
EDELMIRA on CPAP (reportedly noncompliant)
Dyslipidemia
Hypothyroidism
GERD
Morbid obesity
L1 compression fracture
Orthostatic hypotension
HTN
Adrenal insufficiency
Recommendations:
Continue antibiotics. Records from OSH reviewed. Patient to remain on ciprofloxacin through 10/23, and then the plan was to maintain on indefinite suppression.
Monitor creatinine and estimated creatinine clearance for dosing adjustment.
Stressed importance to patient and of follow-up with Orthopedics and other specialists from OSH following discharge.
����������������������������������������������������������
Chief Complaint
-: Clinical Sepsis
Subjective / Review of Systems
Review of Systems: No Fever and No Chills
Vital Signs / Physical Exam
Vital Signs
Vital Signs
Temp Pulse Resp BP Pulse Ox
98.4 F 131 20 124/83 95
10/11/24 11:43 10/11/24 11:43 10/11/24 11:43 10/11/24 11:43 10/11/24 12:21
Physical Exam
Constitutional: No Acute Distress, Comfortable, Chronically Ill, Non-toxic and Obese
Head: Normocephalic
Eyes: No Conjunctival Hemorrhage and Sclera Anicteric
Cardiovascular: S1/S2; Negative S3/S4
Pulmonary: Non Labored
Gastrointestinal: Soft, Normal Bowel Sounds, No Rebound and No Guarding
Extremities: Edema (4+ edema of upper and lower extremities)
Skin: Other (Extremely thin skin, with hemorrhagic bullae noted on bilateral upper extremities.)
Wound: Other (Left knee with inferior superficial wound. Mild slough in base. No periwound erythema. No significant purulence.)
Neurological: Awake and Alert
Psychological: Calm
Objective Data
Lab Data
Lab Results
10/11/24 06:20
10/11/24 06:20
ESR 17 mm/hour (0-20) 10/06/24 13:26
PT 29.0 Sec (11.4-14.6) H 10/06/24 13:35
INR 2.74 10/06/24 13:35
APTT 38.6 Sec (23.4-35.0) H 10/06/24 13:35
Estimated Creat Clear 34 ml/min 10/11/24 06:20
Lactic Acid 1.6 mmol/L (0.7-2.0) 10/09/24 05:09
Total Bilirubin 1.8 mg/dl (0.2-1.3) H 10/11/24 06:20
AST 37 U/L (14-36) H 10/11/24 06:20
ALT 25 U/L (0-35) 10/11/24 06:20
Alkaline Phosphatase 168 U/L (38-126) H 10/11/24 06:20
C-Reactive Protein 30.80 mg/L (0.0-10.00) H 10/06/24 14:34
Most recent labs reviewed.
Micro Results:
10/06/24 15:45 Blood Culture - Preliminary
Blood/Venous No Growth in 4 days- Final report to follow
10/06/24 15:16 Blood Culture - Preliminary
Blood/Venous No Growth in 4 days- Final report to follow
10/07/24 01:48 MRSA Screen - Final
Nose No Methicillin Resistant Staphylococcus aureus isolated.
01/11/25 15:16 Urine Culture - Final
Urine
10/06/24 18:36 Influenza Types A & B (TRISTAN) - Final
Nasal Swab Negative for Influenza A & B, NAAT
Negative results must be combined with clinical observations
and patient history.
Nucleic Acid Amplification test (NAAT)performed on the
[employer] platform.
--- NOTE | 2024-10-11 15:11 | CM ---
Reviewed the chart notes. CM continues to be available to patient/family and is monitoring medical plan for needs at discharge.
Plan: Discharge to [facility] once medically stable and precert obtained.
[2024-10-11 15:36] LABS: Glucose - Point of Care 114 mg/dl (70-99)
--- NOTE | 2024-10-11 16:34 | W.PN.HOSP.TC ---
Today's Communication/Plan
-
Monitor urine output and renal function on increased dose of Bumex.
Continue oral antibiotics.
Discharge planning
Assessment / Plan
Assessment / Plan
Impression
Sepsis present on admission
Acute on chronic hypotension presumably secondary to septic shock
Toxic metabolic encephalopathy on presentation
Conditions prior to admission:
Recent hospitalization in outside hospital for left PE septic prosthetic arthritis reportedly culture positive for Pseudomonas. Discharged on ciprofloxacin
UTI with Klebsiella reported at that admission.
Reported penicillin and meropenem allergy
Acute kidney injury requiring 3 hemodialysis session.
CKD stage IIIb with baseline creatinine 1.4.
MAZARIEGOS cirrhosis with anasarca.
History of hepatic encephalopathy.
Paroxysmal atrial fibrillation baseline anticoagulation with Eliquis
Chronic diastolic CHF
History of pituitary cyst
Obstructive sleep apnea not compliant with CPAP
Dyslipidemia
Hypothyroidism on replacement
GERD.
Obesity with BMI of 38 chronic compression fracture at L1
Plan:
Presentation with clinical sepsis.
Currently afebrile with trending down WBC.
Possible sources: Left knee prosthetic arthritis, versus UTI, versus left lower lobe pneumonia.
Empiric antibiotics levofloxacin adjusted to renal function.
Blood cultures negative to date
Urine cultures negative to date
ID consultation appreciated
Transition back to Cipro as per ID
Hypotension multifactorial possibly due to septic shock as well as underlying cirrhosis with systemic vasodilation
Acute on chronic hypotension
Had not required pressors.
As hemodynamics relatively improved and mental status back to baseline hold further IV fluids
Hold antihypertensives including diltiazem
Hold Bumex and Aldactone
Continue midodrine 10 mg p.o. 3 times daily
Toxic metabolic encephalopathy.
Suspect secondary to acute illness
Doubt hepatic encephalopathy.
No focal findings on exam.
CT scan of the head with no acute abnormal
SANTOSH
Patient baseline creatinine 1.4.
2.7 upon presentation.
Reported required 3 hemodialysis session with recent outside hospitalization.
Nephrology consulted.
Monitor urine output.
Monitor for retention.
Resume bumex and monitor BMP
MAZARIEGOS cirrhosis.
Noted lethargic on admission, currently improving.
Hepatic encephalopathy ruled out.
Continue lactulose and rifaximin.
Severe anasarca.
Would be difficult to mobilize fluid from third spacing.
Hold Bumex and Aldactone acutely reassessing hemodynamics.
Paroxysmal atrial fibrillation.
Monitor on telemetry.
Hold Cardizem.
Continue Eliquis
Chronic CHF preserved EF.
Echo 03/15 LVEF 48-50%.
Monitor volume status closely.
Resume diuretics when hemodynamics are stable
Hypothyroidism on replacement
Obstructive sleep apnea.
Not compliant with CPAP.
Full code
Anticipated Discharge: 24 - 48 hours
Subjective/Interval History
-
Date of Service: October 11, 2024
Objective Data
-
Labs:
Laboratory Results
10/11/24
06:20
WBC 7.0
Hgb 11.0 L
Hct 33.7 L
Plt Count 117 L
Sodium 136
Potassium 5.1
Chloride 102
Carbon Dioxide 27
BUN 53 H
Creatinine 1.5 H
Glucose 74
Calcium 8.7
Total Bilirubin 1.8 H
AST 37 H
ALT 25
Alkaline Phosphatase 168 H
Vital Signs:
Vital Signs
Temp Pulse Resp BP Pulse Ox
98 F 121 20 126/89 95
10/11/24 15:45 10/11/24 15:45 10/11/24 15:45 10/11/24 15:45 10/11/24 15:45
I&O
10/10/24 10/11/24 10/12/24
06:59 06:59 06:59
Intake Total 840 / 840 1520 / 1520 560 / 560
Balance 840 / 840 1520 / 1520 560 / 560
Physical Exam
-
General: Well Developed and No Apparent Distress
HEENT: Normocephalic, Atraumatic and Moist Mucous Membranes
Respiratory: Clear to Auscultation
Cardiac: Regular Rhythm and S1/S2; Negative Murmur, Rub or Gallop
GI: Soft, Nontender, Nondistended and Normal Bowel Sounds; Negative Organomegaly
Rectal: Deferred by Provider
Musculoskeletal: No Clubbing, No Cyanosis and Other (Anasarca)
Skin: Negative Rash
Neuro: Awake, Alert, Oriented and Nonfocal/Grossly Intact
[2024-10-11 21:27] LABS: Glucose - Point of Care 170 mg/dl (70-99)
[2024-10-11] MEDS: ProAmatine PO (22:21)
[2024-10-11] MEDS: MELATONIN PO ×2 (22:21→23:05)
[2024-10-12 03:17] VITALS: BP 107/70
[2024-10-12] MEDS: SYNTHROID 75 MCG PO (05:58)
[2024-10-12 06:26] VITALS: BMI 37.6
[2024-10-12 06:39] LABS: Hematocrit 35.6 % (37.0-47.0); Hemoglobin 11.5 g/dL (12.0-16.0); Mean Corp Hgb Conc. 32.3 g/dL (33.0-37.0); Mean Corpuscular Hgb 30.4 pg (27.0-31.0); Mean Corpuscular Volume 94.2 fL (81.0-99.0); Mean Platelet Volume 11.2 fL (7.4-10.4); Platelet Count 116 10^3/uL (130-400); Red Blood Cell Count 3.78 10^6/uL (4.20-5.40); Red Cell Dist. Width 20.4 % (11.5-14.5); White Blood Cell Count 7.9 10^3/uL (4.8-10.8)
[2024-10-12 06:49] LABS: ALT (SGPT) 23 U/L (0-35); AST (SGOT) 31 U/L (14-36); Albumin 2.7 g/dl (3.5-5.0); Alkaline Phosphatase 171 U/L (38-126); Blood Urea Nitrogen 51 mg/dl (7-17); Calcium 8.9 mg/dl (8.4-10.2); Carbon Dioxide 27 mmol/L (22-30); Chloride 100 mmol/L (98-107); Estimated Creatinine Clearance 31 ml/min; Glucose 70 mg/dl (70-99); Potassium 4.2 mmol/L (3.5-5.1); Sodium 136 mmol/L (135-145); Total Protein 4.9 g/dl (6.3-8.2); eGFR 33.01
[2024-10-12 07:55] VITALS: BP 112/57
[2024-10-12 08:10] LABS: % Basophils 0.3 % (0-2); % Eosinophils 4.1 % (0-6); % Immature Granulocytes 7.2 % (0-0.5); % Lymphocytes 13.2 % (20.5-51.1); % Monocytes 15.3 % (1.7-9.3); % Neutrophils 59.9 % (42.2-75.2); Absolute Eosinophils 0.3 10^3/uL (0-0.7); Absolute Immature Granulocytes 0.6 10^3/uL (0-0.05); Absolute Monocytes 1.2 10^3/uL (0.1-0.6); Absolute Neutrophils 4.7 10^3/uL (1.4-6.5); Nucleated Red Blood Cells % 0.6 %
[2024-10-12 08:17] LABS: Glucose - Point of Care 58 mg/dl (70-99)
[2024-10-12] MEDS: DUPHALAC/CHRONULAC 20 GRAMS PO ×2 (08:39→17:52)
[2024-10-12] MEDS: XIFAXAN 550 MG PO ×2 (08:39→22:19)
[2024-10-12] MEDS: CYMBALTA DELAYED RELEASE 30 MG PO (08:39)
[2024-10-12] MEDS: NOVOLOG FLEXPEN-LOW RESISTANCE SC ×2 (08:39→13:03)
[2024-10-12] MEDS: CYTOMEL 5 MICROGRAM PO (08:39)
[2024-10-12] MEDS: BUMEX 1 MG PO ×2 (08:39→22:23)
[2024-10-12] MEDS: ELIQUIS 5 MG PO ×2 (08:40→22:20)
[2024-10-12] MEDS: FLORASTOR 250 MG PO ×2 (08:40→22:19)
[2024-10-12] MEDS: DELTASONE 5 MG PO (08:40)
[2024-10-12] MEDS: CARDIZEM CD 120 MG PO (08:40)
[2024-10-12] MEDS: CIPRO 750 MG PO (08:40)
[2024-10-12] MEDS: ProAmatine 10 MG PO ×2 (08:40→15:50)
[2024-10-12] MEDS: ZEBETA 10 MG PO (08:40)
[2024-10-12] MEDS: DESENEX/MITRAZOL/ZEASORB 1 APPLIC TOPICAL ×2 (08:46→22:22)
[2024-10-12 09:10] LABS: Glucose - Point of Care 71 mg/dl (70-99)
--- NOTE | 2024-10-12 09:45 | WOUNDNOTE ---
[facility] RN note: Patient reports a good appetite. Patient continues with anasarca however, LE edema appear less. L knee wound stable, distal wound mostly pink with some yellow/scabbed fibrin, scabbed incision just proximal to wound is softening.
Drainage less. R forearm blood blister remains intact. Protective non stick dressing applied. L forearm skin tear drain cleaner. LUE and L knee dressings changed. L heel red area smaller/resolving. Protective foam maintained. Protective foam applied R
heel. Sacral/buttocks skin remains discolored dull red and intact. Protective silicone border foam applied. TruVue lite boots applied. Bariatric air chair cushion placed at foot section of bed under fitted sheet. Kylie care given and patient turned
to R semi side lying position with help from ADELINE Miner. Patient is on a [facility] air bed. Current wound care appropriate. Discussed with ROSA Hinkle. Will follow as needed. Patient to follow up with her orthopedic surgeon.
--- NOTE | 2024-10-12 10:18 | WOUNDNOTE ---
[facility] RN note: Patient reports a good appetite. Patient continues with anaarca however, LE edema appear less. L knee wound stable, distal wound mostly pink with some yellow/scabbed fibrin, scabbed incision just proximal to wound is softening. Drainage
less. R forearm blood blister remains intact. Protective non stick dressing applied. L forearm skin tear barrel cleaner. LUE and L knee dressings changed. L heel red area smaller/resolving. Protective foam maintained. Protective foam applied R heel.
Sacral/buttocks skin remains discolored dull red and intact. Protective silicone border foam applied. TruVue lite boots applied. Bariatric air chair cushion placed at foot section of bed under fitted sheet. Kylie care given and patient turned to R
semi side lying position with help from ADELINE Miner. Patient is on a [facility] air bed. Current wound care appropriate. Discussed with ROSA Hinkle. Will follow as needed. Patient to follow up with her orthopedic surgeon.
[2024-10-12 11:26] VITALS: BP 102/68
--- NOTE | 2024-10-12 11:58 | W.PN.NEPH.PH ---
Today's Communication / Plan
-
Continue Bumex twice daily
Assessment/Plan
-
Impression:
Sepsis/PNA
UTI hx
SANTOSH/CKD (2.4)
Hx of Adrenal insufficiency
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
Abdominal ascites/hypoalbuminemia
MAZARIEGOS cirrhosis
Paroxysmal atrial fibrillation
Chronic diastolic heart failure/history of hepatic encephalopathy
Hypothyroidism
Chronic compression L1 lumbar vertebrae
Nonambulatory
Plan:
SANTOSH:
-Patient's creatinine is down to 1.5 which is below her baseline following discharge from outside hospital when it was 2.4 following 3 dialysis sessions
-There is no acute dialysis requirement
-I suspect her underlying chronic kidney disease is due to multiple factors including underlying infection, cirrhosis with poor effective circulating volume, diastolic heart failure, and ongoing hemodynamic instability
-continue 10mg midodrine TID in the setting of her hypotension
-Her underlying hypoalbuminemia which is likely a function of her cirrhosis limits effective diuresis due to hemodynamic instability
-Aggressive diuresis for her obvious peripheral volume overload will prove difficult, but I will escalate her Bumex to 1 mg p.o. twice daily
-She is not a good long-term dialysis candidate even if dialysis would be required given her advanced comorbidities of MAZARIEGOS cirrhosis diastolic heart failure with ongoing hemodynamic instability
-Would hold off on Aldactone given propensity for hyperkalemia
Continue with diuretics
Bumex twice daily
-
-
Date of Service: October 12, 2024
CC / HPI / ROS
-
Chief Complaint:
Acute on chronic kidney disease secondary to cirrhosis, sepsis
History of Present Illness:
SANTOSH improved creatinine at baseline down to 1.5
Hemodynamically labile on midodrine support 3 times daily
Remains on ciprofloxacin
Review of Systems:
No chest pain or shortness of breath nonoliguric
No fevers
Weight up
Labs
-
Labs:
WBC 7.9 10^3/uL (4.8-10.8) 10/12/24 05:38
RBC 3.78 10^6/uL (4.20-5.40) L 10/12/24 05:38
Hgb 11.5 g/dL (12.0-16.0) L 10/12/24 05:38
Hct 35.6 % (37.0-47.0) L 10/12/24 05:38
Plt Count 116 10^3/uL (130-400) L 10/12/24 05:38
Sodium 136 mmol/L (135-145) 10/12/24 05:38
Potassium 4.2 mmol/L (3.5-5.1) 10/12/24 05:38
Chloride 100 mmol/L (98-107) 10/12/24 05:38
Carbon Dioxide 27 mmol/L (22-30) 10/12/24 05:38
BUN 51 mg/dl (7-17) H 10/12/24 05:38
Creatinine 1.6 mg/dL (0.6-1.0) H 10/12/24 05:38
eGFR 33.01 10/12/24 05:38
Glucose 70 mg/dl (70-99) 10/12/24 05:38
Calcium 8.9 mg/dl (8.4-10.2) 10/12/24 05:38
Phosphorus 5.0 mg/dl (2.5-4.5) H 10/07/24 01:48
Hcq-D-Dfqbwrphola Pept 1140 pg/ml 10/06/24 14:34
Albumin 2.7 g/dl (3.5-5.0) L 10/12/24 05:38
Physical Exam
-
Vital Signs:
Vital Signs
Temp Pulse Resp BP Pulse Ox
97.6 F 96 17 102/68 95
10/12/24 11:26 10/12/24 11:26 10/12/24 11:26 10/12/24 11:26 10/12/24 11:26
Cardiovascular:: Regular rate and rhythm
Respiratory:: Bilateral: CTA
Lung Excursion:: Normal
Abdomen:: Soft
Bowel Sounds:: Normal
Extremity Edema:: +2: Bilateral:
Gutiérrez Catheter: Yes
[2024-10-12 13:03] LABS: Glucose - Point of Care 137 mg/dl (70-99)
[2024-10-12] MEDS: DUPHALAC/CHRONULAC PO ×2 (13:03→22:20)
--- NOTE | 2024-10-12 13:12 | W.DS.TRANS ---
DC Summary - Crusher
-
Discharge Instructions:
Discharge Diagnosis/Procedures Impression
Sepsis present on admission
Acute on chronic hypotension presumably
secondary to septic shock
Toxic metabolic encephalopathy on presentation
Conditions prior to admission:
Recent hospitalization in outside hospital for
left PE septic prosthetic arthritis reportedly
culture positive for Pseudomonas. Discharged on
ciprofloxacin
UTI with Klebsiella reported at that admission.
Reported penicillin and meropenem allergy
Acute kidney injury requiring 3 hemodialysis
session.
CKD stage IIIb with baseline creatinine 1.4.
MAZARIEGOS cirrhosis with anasarca.
History of hepatic encephalopathy.
Paroxysmal atrial fibrillation baseline
anticoagulation with Eliquis
Chronic diastolic CHF
History of pituitary cyst
Obstructive sleep apnea not compliant with CPAP
Dyslipidemia
Hypothyroidism on replacement
GERD.
Obesity with BMI of 38 chronic compression
fracture at L1
Instructions:
Stand-Alone Forms:
Changes to Home Medications: Yes
Discharge Medications:
DC Medications w/original date entered in [employer] [facility]
liothyronine 5 mcg tablet 5 mcg PO DAILY Thyroid 10/17/19
rifaximin 550 mg tablet (Xifaxan) 550 mg PO BID Liver Issues 10/17/19
prednisone 5 mg tablet 5 mg PO DAILY Anti-Inflammatory 12/14/23
levothyroxine 75 mcg tablet 75 mcg PO DAILY Thyroid 02/29/24
alendronate 70 mg tablet 70 mg PO MO osteoporosis 05/01/24
apixaban 2.5 mg tablet (Eliquis) 5 mg PO BID Blood Clot Prevention/Tx 05/01/24
bisoprolol fumarate 5 mg tablet 10 mg PO DAILY Blood Pressure 05/01/24
diltiazem HCl 120 mg capsule,extended release 24 hr (Cartia XT) 120 mg PO DAILY Arrhythmia 05/01/24
Saccharomyces boulardii 250 mg capsule 250 mg PO BID 10/06/24
ciprofloxacin HCl 750 mg tablet 750 mg PO DAILY 10/06/24
duloxetine 30 mg capsule,delayed release sprinkle 30 mg PO DAILY 10/06/24
lactulose 20 gram/30 mL oral solution 30 ml PO QID 10/06/24
midodrine 10 mg tablet 10 mg PO TID 10/06/24
bumetanide 1 mg tablet 1 mg PO BID #60 tabs 10/12/24
oxycodone 5 mg tablet 5 mg PO Q6H PRN pain #14 tabs 10/12/24
Home Medication Changes
Bumex increased to BID.
Aldactone stopped due to hyperkalemia
Cipro through 10/23/24. follow with orthopedic surgery for transition to chronic antibiotic suppression
Pending Results: No
--- NOTE | 2024-10-12 14:42 | CM ---
Addendum entered by Marylou Saldivar RN 10/12/24 15:18:
No number listed for insurance. Call placed to admissions provided with [phone]. Placed call instructed to fax clinicals to [phone] ([facility] dept). [facility] dept answering machine # is [phone]
Awaiting decision.
Original Note:
Reviewed the chart notes. IMM reviewed and placed on chart. CM continues to be available to patient/family and is monitoring medical plan for needs at discharge.
Plan: Discharge to [facility] when auth received.
[place] NPI# [id number]
[facility] NPI# [id number]
--- NOTE | 2024-10-12 15:24 | W.PN.HOSP.TC ---
Today's Communication/Plan
-
Stable renal function on increased dose of Bumex
Remains on oral antibiotics
Medically optimized for discharge pending insurance authorization for snf facility/rehab
Assessment / Plan
Assessment / Plan
Impression
Sepsis present on admission
Acute on chronic hypotension presumably secondary to septic shock
Toxic metabolic encephalopathy on presentation
Conditions prior to admission:
Recent hospitalization in outside hospital for left PE septic prosthetic arthritis reportedly culture positive for Pseudomonas. Discharged on ciprofloxacin
UTI with Klebsiella reported at that admission.
Reported penicillin and meropenem allergy
Acute kidney injury requiring 3 hemodialysis session.
CKD stage IIIb with baseline creatinine 1.4.
MAZARIEGOS cirrhosis with anasarca.
History of hepatic encephalopathy.
Paroxysmal atrial fibrillation baseline anticoagulation with Eliquis
Chronic diastolic CHF
History of pituitary cyst
Obstructive sleep apnea not compliant with CPAP
Dyslipidemia
Hypothyroidism on replacement
GERD.
Obesity with BMI of 38 chronic compression fracture at L1
Plan:
Presentation with clinical sepsis.
Currently afebrile with trending down WBC.
Possible sources: Left knee prosthetic arthritis, versus UTI, versus left lower lobe pneumonia.
Empiric antibiotics levofloxacin adjusted to renal function.
Blood cultures negative to date
Urine cultures negative to date
ID consultation appreciated
Transition back to Cipro as per ID
Hypotension multifactorial possibly due to septic shock as well as underlying cirrhosis with systemic vasodilation
Acute on chronic hypotension
Had not required pressors.
As hemodynamics relatively improved and mental status back to baseline hold further IV fluids
Hold antihypertensives including diltiazem
Hold Bumex and Aldactone
Continue midodrine 10 mg p.o. 3 times daily
Toxic metabolic encephalopathy.
Suspect secondary to acute illness
Doubt hepatic encephalopathy.
No focal findings on exam.
CT scan of the head with no acute abnormal
SANTOSH
Patient baseline creatinine 1.4.
2.7 upon presentation.
Reported required 3 hemodialysis session with recent outside hospitalization.
Nephrology consulted.
Monitor urine output.
Monitor for retention.
Resume bumex and monitor BMP
MAZARIEGOS cirrhosis.
Noted lethargic on admission, currently improving.
Hepatic encephalopathy ruled out.
Continue lactulose and rifaximin.
Severe anasarca.
Would be difficult to mobilize fluid from third spacing.
Hold Bumex and Aldactone acutely reassessing hemodynamics.
Paroxysmal atrial fibrillation.
Monitor on telemetry.
Hold Cardizem.
Continue Eliquis
Chronic CHF preserved EF.
Echo 03/15 LVEF 48-50%.
Monitor volume status closely.
Resume diuretics when hemodynamics are stable
Hypothyroidism on replacement
Obstructive sleep apnea.
Not compliant with CPAP.
Full code
Anticipated Discharge: Within 24 hours
Subjective/Interval History
-
Date of Service: October 12, 2024
Objective Data
-
Labs:
Laboratory Results
10/12/24
05:38
WBC 7.9
Hgb 11.5 L
Hct 35.6 L
Plt Count 116 L
Sodium 136
Potassium 4.2
Chloride 100
Carbon Dioxide 27
BUN 51 H
Creatinine 1.6 H
Glucose 70
Calcium 8.9
Total Bilirubin 2.0 H
AST 31
ALT 23
Alkaline Phosphatase 171 H
Vital Signs:
Vital Signs
Temp Pulse Resp BP Pulse Ox
97.6 F 96 17 102/68 95
10/12/24 11:26 10/12/24 11:26 10/12/24 11:26 10/12/24 11:26 10/12/24 11:26
I&O
10/11/24 10/12/24 10/13/24
06:59 06:59 06:59
Intake Total 1520 / 1520 560 / 560
Balance 1520 / 1520 560 / 560
Physical Exam
-
General: Well Developed and No Apparent Distress
HEENT: Normocephalic, Atraumatic and Moist Mucous Membranes
Respiratory: Clear to Auscultation
Cardiac: Regular Rhythm and S1/S2; Negative Murmur, Rub or Gallop
GI: Soft, Nontender, Nondistended and Normal Bowel Sounds; Negative Organomegaly
Rectal: Deferred by Provider
Musculoskeletal: No Clubbing, No Cyanosis and Other (Anasarca)
Skin: Negative Rash
Neuro: Awake, Alert, Oriented and Nonfocal/Grossly Intact
--- NOTE | 2024-10-12 15:42 | W.PN.ID1 ---
Date of Service
Date of Service: October 12, 2024
Today's Communication
Continue antibiotics
Assessment / Plan
Leukocytosis; improved
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
Lactic acidosis
Protein calorie malnutrition (albumin = 2.9)
- chronic, mild (moderate to severe fluid accumulation; albumin <3.0)
Diffuse anasarca secondary to above
CKD stage III
MAZARIEGOS cirrhosis with anasarca
Hx hepatic encephalopathy
P A-fib
Diastolic CHF
Hx pituitary cyst
EDELMIRA on CPAP (reportedly noncompliant)
Dyslipidemia
Hypothyroidism
GERD
Morbid obesity
L1 compression fracture
Orthostatic hypotension
HTN
Adrenal insufficiency
Recommendations:
Continue ciprofloxacin. Records from OSH reviewed. Patient to remain on ciprofloxacin through 10/23, and then the plan was to maintain on indefinite suppression.
Monitor creatinine and estimated creatinine clearance for dosing adjustment.
Stressed importance to patient, and daughter the imprtance of follow-up with Orthopedics and other specialists from OSH following discharge.
����������������������������������������������������������
Chief Complaint
-: Clinical Sepsis
Subjective / Review of Systems
Review of Systems: No Fever and No Chills
Vital Signs / Physical Exam
Vital Signs
Vital Signs
Temp Pulse Resp BP Pulse Ox
97.6 F 96 17 102/68 95
10/12/24 11:26 10/12/24 11:26 10/12/24 11:26 10/12/24 11:26 10/12/24 11:26
Physical Exam
Constitutional: No Acute Distress, Comfortable, Chronically Ill, Non-toxic and Obese
Head: Normocephalic
Eyes: No Conjunctival Hemorrhage and Sclera Anicteric
Pulmonary: Non Labored
Gastrointestinal: Non Distended
Extremities: Edema (4+ edema of upper and lower extremities)
Skin: Other (Extremely thin skin, with hemorrhagic bullae noted on bilateral upper extremities.)
Wound: Other (Left knee with inferior superficial wound. Mild slough in base. No periwound erythema. No significant purulence.)
Neurological: Awake and Alert
Psychological: Calm
Objective Data
Lab Data
Lab Results
10/12/24 05:38
10/12/24 05:38
ESR 17 mm/hour (0-20) 10/06/24 13:26
PT 29.0 Sec (11.4-14.6) H 10/06/24 13:35
INR 2.74 10/06/24 13:35
APTT 38.6 Sec (23.4-35.0) H 10/06/24 13:35
Estimated Creat Clear 31 ml/min 10/12/24 05:38
Lactic Acid 1.6 mmol/L (0.7-2.0) 10/09/24 05:09
Total Bilirubin 2.0 mg/dl (0.2-1.3) H 10/12/24 05:38
AST 31 U/L (14-36) 10/12/24 05:38
ALT 23 U/L (0-35) 10/12/24 05:38
Alkaline Phosphatase 171 U/L (38-126) H 10/12/24 05:38
C-Reactive Protein 30.80 mg/L (0.0-10.00) H 10/06/24 14:34
Most recent labs reviewed.
Micro Results:
10/06/24 15:45 Blood Culture - Final
Blood/Venous No Growth - Final Report
10/06/24 15:16 Blood Culture - Final
Blood/Venous No Growth - Final Report
10/07/24 01:48 MRSA Screen - Final
Nose No Methicillin Resistant Staphylococcus aureus isolated.
10/06/24 15:16 Urine Culture - Final
Urine
10/06/24 18:36 Influenza Types A & B (TRISTAN) - Final
Nasal Swab Negative for Influenza A & B, NAAT
Negative results must be combined with clinical observations
and patient history.
Nucleic Acid Amplification test (NAAT)performed on the
[email or web address] platform.
[2024-10-12 15:47] VITALS: BP 120/68
[2024-10-12 17:28] LABS: Glucose - Point of Care 191 mg/dl (70-99)
[2024-10-12] MEDS: NOVOLOG FLEXPEN-LOW RESISTANCE 1 UNITS SC (17:49)
[2024-10-12 19:44] VITALS: BP 109/81
[2024-10-12 22:14] LABS: Glucose - Point of Care 101 mg/dl (70-99)
[2024-10-12] MEDS: MELATONIN 5 MG PO (22:19)
[2024-10-12] MEDS: PEPCID 20 MG PO (22:20)
[2024-10-12] MEDS: ProAmatine PO (22:25)
[2024-10-12 23:35] VITALS: BP 127/93
[2024-10-13 03:58] VITALS: BP 104/66
[2024-10-13 06:00] VITALS: BMI 36.9
[2024-10-13] MEDS: SYNTHROID 75 MCG PO (06:24)
[2024-10-13 07:45] VITALS: BP 124/70
[2024-10-13 08:09] LABS: Glucose - Point of Care 59 mg/dl (70-99)
[2024-10-13 08:29] LABS: Glucose - Point of Care 82 mg/dl (70-99)
[2024-10-13] MEDS: NOVOLOG FLEXPEN-LOW RESISTANCE SC ×3 (09:15→16:12)
[2024-10-13] MEDS: CARDIZEM CD 120 MG PO (09:17)
[2024-10-13] MEDS: CIPRO 750 MG PO (09:17)
[2024-10-13] MEDS: ZEBETA 10 MG PO (09:17)
[2024-10-13] MEDS: DUPHALAC/CHRONULAC 20 GRAMS PO ×2 (09:17→17:28)
[2024-10-13] MEDS: CYMBALTA DELAYED RELEASE 30 MG PO (09:17)
[2024-10-13] MEDS: CYTOMEL 5 MICROGRAM PO (09:17)
[2024-10-13] MEDS: XIFAXAN 550 MG PO ×2 (09:18→20:56)
[2024-10-13] MEDS: ELIQUIS 5 MG PO ×2 (09:18→20:55)
[2024-10-13] MEDS: FLORASTOR 250 MG PO ×2 (09:18→20:55)
[2024-10-13] MEDS: ProAmatine 10 MG PO ×3 (09:18→21:06)
[2024-10-13] MEDS: DELTASONE 5 MG PO (09:18)
[2024-10-13] MEDS: BUMEX 1 MG PO ×2 (09:18→20:55)
[2024-10-13] MEDS: DESENEX/MITRAZOL/ZEASORB 1 APPLIC TOPICAL ×2 (09:19→20:57)
[2024-10-13 11:46] VITALS: BP 118/79
[2024-10-13 12:03] LABS: Glucose - Point of Care 62 mg/dl (70-99)
[2024-10-13 12:20] LABS: Glucose - Point of Care 86 mg/dl (70-99)
[2024-10-13 13:39] LABS: Glucose - Point of Care 74 mg/dl (70-99)
--- NOTE | 2024-10-13 13:48 | CM ---
CM called to Insurance number: [phone]. left requesting authorization update. CM sent tt to patient physician with updated information. CM will continue to follow for discharge planning needs.
Plan; awaiting auth for transfer to [facility]
[2024-10-13] MEDS: DUPHALAC/CHRONULAC PO ×2 (14:38→21:02)
[2024-10-13 15:16] VITALS: BP 104/71
--- NOTE | 2024-10-13 15:18 | W.PN.HOSP.TC ---
Today's Communication/Plan
-
DC planning
Assessment / Plan
Assessment / Plan
Impression
Sepsis present on admission
Acute on chronic hypotension presumably secondary to septic shock
Toxic metabolic encephalopathy on presentation
Conditions prior to admission:
Recent hospitalization in outside hospital for left PE septic prosthetic arthritis reportedly culture positive for Pseudomonas. Discharged on ciprofloxacin
UTI with Klebsiella reported at that admission.
Reported penicillin and meropenem allergy
Acute kidney injury requiring 3 hemodialysis session.
CKD stage IIIb with baseline creatinine 1.4.
MAZARIEGOS cirrhosis with anasarca.
History of hepatic encephalopathy.
Paroxysmal atrial fibrillation baseline anticoagulation with Eliquis
Chronic diastolic CHF
History of pituitary cyst
Obstructive sleep apnea not compliant with CPAP
Dyslipidemia
Hypothyroidism on replacement
GERD.
Obesity with BMI of 38 chronic compression fracture at L1
Plan:
Presentation with clinical sepsis.
Currently afebrile with normal WBC.
Possible sources: Left knee prosthetic arthritis, versus UTI, versus left lower lobe pneumonia.
Empiric antibiotics levofloxacin adjusted to renal function.
Blood cultures negative to date
Urine cultures negative to date
ID consultation appreciated
Transition back to Cipro as per ID
Hypotension multifactorial possibly due to septic shock as well as underlying cirrhosis with systemic vasodilation
Acute on chronic hypotension
Had not required pressors.
As hemodynamics relatively improved and mental status back to baseline hold further IV fluids
cw antihypertensives including diltiazem with parameters
cw Bumex with parameters
Continue midodrine 10 mg p.o. 3 times daily
Toxic metabolic encephalopathy.
Suspect secondary to acute illness
Doubt hepatic encephalopathy.
No focal findings on exam.
CT scan of the head with no acute abnormal
SANTOSH
Patient baseline creatinine 1.4.
2.7 upon presentation.
Reported required 3 hemodialysis session with recent outside hospitalization.
Nephrology consulted.
Monitor urine output.
Monitor for retention.
Resume bumex and monitor BMP
Improved Cr
MAZARIEGOS cirrhosis.
Noted lethargic on admission, currently improving.
Hepatic encephalopathy ruled out.
Continue lactulose and rifaximin.
Severe anasarca.
Would be difficult to mobilize fluid from third spacing.
cw Bumex
Paroxysmal atrial fibrillation.
Monitor on telemetry.
cw Cardizem.
Continue Eliquis
Chronic CHF preserved EF.
Echo 03/15 LVEF 48-50%.
Monitor volume status closely.
Resume diuretics when hemodynamics are stable
Hypothyroidism on replacement
Hypoglycemia -not on meds to account of it. Switch to regular diet for more choices.
Obstructive sleep apnea.
Not compliant with CPAP.
Full code
Medically stable for DC to rehab when auth is in .
DW CM - no auth yet
DW at bedside
Anticipated Discharge: Within 24 hours
Subjective/Interval History
-
Date of Service: October 13, 2024
Low blood sugars this morning noted. She was not particularly symptomatic.
Appetite not that great. Able to eat solid diet but she says not much choices because of salt restriction. Not a diabetic. No prior history of hypoglycemia.
Objective Data
-
Vital Signs:
Vital Signs
Temp Pulse Resp BP Pulse Ox
97.6 F 79 20 104/71 95
10/13/24 15:16 10/13/24 15:16 10/13/24 15:16 10/13/24 15:16 10/13/24 15:16
I&O
10/12/24 10/13/24 10/14/24
06:59 06:59 06:59
Intake Total 560 / 560 480 / 480
Balance 560 / 560 480 / 480
Review of Systems
-
Constitutional: Denies Fever
Respiratory: Denies Trouble Breathing
Cardiac: Denies Chest Pain
Abdomen/GI: Denies Abdominal Pain, Nausea or Vomiting
Neuro: Denies Dizzy
Physical Exam
-
General: No Apparent Distress
HEENT: Moist Mucous Membranes
Respiratory: Non Labored Respirations; Negative Accessory Resp Muscle Use
GI: Soft and Nontender
Musculoskeletal: Edema, Right Upper Extrem, Edema, Left Upper Extrem, Edema, Right Lower Extrem and Edema, Left Lower Extrem
Psych: Calm; Negative Confused
[2024-10-13 16:12] LABS: Glucose - Point of Care 127 mg/dl (70-99)
--- NOTE | 2024-10-13 16:28 | W.PN.ID1 ---
Date of Service
Date of Service: October 13, 2024
Today's Communication
Continue current antibiotics.
Assessment / Plan
Leukocytosis; improved
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
Lactic acidosis
Protein calorie malnutrition (albumin = 2.9)
- chronic, mild (moderate to severe fluid accumulation; albumin <3.0)
Diffuse anasarca secondary to above
CKD stage III
MAZARIEGOS cirrhosis with anasarca
Hx hepatic encephalopathy
P A-fib
Diastolic CHF
Hx pituitary cyst
EDELMIRA on CPAP (reportedly noncompliant)
Dyslipidemia
Hypothyroidism
GERD
Morbid obesity
L1 compression fracture
Orthostatic hypotension
HTN
Adrenal insufficiency
Recommendations:
Continue ciprofloxacin. Records from OSH reviewed. Patient to remain on ciprofloxacin through 10/23, and then the plan was to maintain on indefinite suppression.
Monitor creatinine and estimated creatinine clearance for dosing adjustment.
Stressed importance to patient, and daughter the imprtance of follow-up with Orthopedics and other specialists from OSH following discharge.
����������������������������������������������������������
Chief Complaint
-: Other (Hx left knee prosthetic joint infection)
Vital Signs / Physical Exam
Vital Signs
Vital Signs
Temp Pulse Resp BP Pulse Ox
97.6 F 79 20 104/71 95
10/13/24 15:16 10/13/24 15:16 10/13/24 15:16 10/13/24 15:16 10/13/24 15:16
Physical Exam
Constitutional: Comfortable, Chronically Ill, Non-toxic and Obese
Pulmonary: Non Labored
Gastrointestinal: Non Distended
Extremities: Edema (4+ edema of upper and lower extremities)
Skin: Other (Extremely thin skin, with hemorrhagic bullae noted on bilateral upper extremities.)
Psychological: Calm
Objective Data
Lab Data
Lab Results
10/12/24 05:38
10/12/24 05:38
ESR 17 mm/hour (0-20) 10/06/24 13:26
PT 29.0 Sec (11.4-14.6) H 10/06/24 13:35
INR 2.74 10/06/24 13:35
APTT 38.6 Sec (23.4-35.0) H 10/06/24 13:35
Estimated Creat Clear 31 ml/min 10/12/24 05:38
Lactic Acid 1.6 mmol/L (0.7-2.0) 10/09/24 05:09
Total Bilirubin 2.0 mg/dl (0.2-1.3) H 10/12/24 05:38
AST 31 U/L (14-36) 10/12/24 05:38
ALT 23 U/L (0-35) 10/12/24 05:38
Alkaline Phosphatase 171 U/L (38-126) H 10/12/24 05:38
C-Reactive Protein 30.80 mg/L (0.0-10.00) H 10/06/24 14:34
Most recent labs reviewed.
Micro Results:
10/06/24 15:45 Blood Culture - Final
Blood/Venous No Growth - Final Report
10/06/24 15:16 Blood Culture - Final
Blood/Venous No Growth - Final Report
10/07/24 01:48 MRSA Screen - Final
Nose No Methicillin Resistant Staphylococcus aureus isolated.
10/06/24 15:16 Urine Culture - Final
Urine
10/06/24 18:36 Influenza Types A & B (TRISTAN) - Final
Nasal Swab Negative for Influenza A & B, NAAT
Negative results must be combined with clinical observations
and patient history.
Nucleic Acid Amplification test (NAAT)performed on the
[employer] platform.
[2024-10-13 19:36] VITALS: BP 116/67
[2024-10-13] MEDS: MELATONIN PO ×2 (21:05→21:09)
[2024-10-13 21:37] LABS: Glucose - Point of Care 110 mg/dl (70-99)
[2024-10-13 23:43] VITALS: BP 102/57
[2024-10-14 03:33] LABS: Glucose - Point of Care 125 mg/dl (70-99)
[2024-10-14 03:39] VITALS: BP 118/74
[2024-10-14] MEDS: SYNTHROID 75 MCG PO (05:42)
[2024-10-14 06:00] VITALS: BMI 37.2
[2024-10-14 07:45] VITALS: BP 112/71
[2024-10-14 07:56] LABS: Glucose - Point of Care 132 mg/dl (70-99)
[2024-10-14] MEDS: CYMBALTA DELAYED RELEASE 30 MG PO (09:26)
[2024-10-14] MEDS: BUMEX 1 MG PO ×2 (09:26→21:04)
[2024-10-14] MEDS: NOVOLOG FLEXPEN-LOW RESISTANCE SC ×2 (09:26→12:56)
[2024-10-14] MEDS: CIPRO 750 MG PO (09:26)
[2024-10-14] MEDS: CYTOMEL 5 MICROGRAM PO (09:27)
[2024-10-14] MEDS: DUPHALAC/CHRONULAC 20 GRAMS PO ×3 (09:27→21:04)
[2024-10-14] MEDS: ZEBETA 10 MG PO (09:27)
[2024-10-14] MEDS: ELIQUIS 5 MG PO ×2 (09:27→21:04)
[2024-10-14] MEDS: FLORASTOR 250 MG PO ×2 (09:27→21:04)
[2024-10-14] MEDS: XIFAXAN 550 MG PO ×2 (09:27→21:04)
[2024-10-14] MEDS: DELTASONE 5 MG PO (09:27)
[2024-10-14] MEDS: ProAmatine 10 MG PO ×3 (09:27→21:03)
[2024-10-14] MEDS: CARDIZEM CD 120 MG PO (09:27)
[2024-10-14] MEDS: DESENEX/MITRAZOL/ZEASORB 1 APPLIC TOPICAL ×2 (09:28→21:05)
--- NOTE | 2024-10-14 10:42 | W.PN.HOSP.TC ---
Today's Communication/Plan
-
Continue with current treatments
Ongoing disposition efforts
Assessment / Plan
Assessment / Plan
Impression
Sepsis present on admission
Acute on chronic hypotension presumably secondary to septic shock
Toxic metabolic encephalopathy on presentation
Conditions prior to admission:
Recent hospitalization in outside hospital for left PE septic prosthetic arthritis reportedly culture positive for Pseudomonas. Discharged on ciprofloxacin
UTI with Klebsiella reported at that admission.
Reported penicillin and meropenem allergy
Acute kidney injury requiring 3 hemodialysis session.
CKD stage IIIb with baseline creatinine 1.4.
MAZARIEGOS cirrhosis with anasarca.
History of hepatic encephalopathy.
Paroxysmal atrial fibrillation baseline anticoagulation with Eliquis
Chronic diastolic CHF
History of pituitary cyst
Obstructive sleep apnea not compliant with CPAP
Dyslipidemia
Hypothyroidism on replacement
GERD.
Obesity with BMI of 38 chronic compression fracture at L1
Plan:
Presentation with clinical sepsis.
Currently afebrile with normal WBC.
Possible sources: Left knee prosthetic arthritis, versus UTI, versus left lower lobe pneumonia.
Empiric antibiotics levofloxacin adjusted to renal function.
Blood cultures negative to date
Urine cultures negative to date
ID consultation appreciated
Transitioned back to Cipro as per ID
Hypotension multifactorial possibly due to septic shock as well as underlying cirrhosis with systemic vasodilation
Acute on chronic hypotension
Had not required pressors.
As hemodynamics relatively improved and mental status back to baseline hold further IV fluids
cw antihypertensives including diltiazem with parameters
cw Bumex with parameters
Continue midodrine 10 mg p.o. 3 times daily
Toxic metabolic encephalopathy.
Suspect secondary to acute illness
Doubt hepatic encephalopathy.
CT scan of the head with no acute abnormal
Resolved
SANTOSH
Patient baseline creatinine 1.4.
2.7 upon presentation.
Reported required 3 hemodialysis session with recent outside hospitalization.
Nephrology consulted.
Monitor urine output.
Monitor for retention.
Resumed bumex and monitor BMP
Improved Cr
MAZARIEGOS cirrhosis.
Noted lethargic on admission, currently improving.
Hepatic encephalopathy ruled out.
Continue lactulose and rifaximin.
Severe anasarca.
Would be difficult to mobilize fluid from third spacing.
cw Bumex
Paroxysmal atrial fibrillation.
Monitor on telemetry.
cw Cardizem.
Continue Eliquis
Chronic CHF preserved EF.
Echo 03/15 LVEF 48-50%.
Monitor volume status closely.
Resume diuretics when hemodynamics are stable
Wt stable
Hypothyroidism on replacement
Hypoglycemia -Resolved .CW regular diet for now.
Obstructive sleep apnea.
Not compliant with CPAP.
Full code
Medically stable for DC to rehab when auth is in .
DW CM today- no auth yet
DW at bedside
Anticipated Discharge: Within 24 hours
Subjective/Interval History
-
Date of Service: October 14, 2024
Eating ok
No N/V
Feels the arm swelling is down
Denies SOB or CP
No dizziness
Objective Data
-
Vital Signs:
Vital Signs
Temp Pulse Resp BP Pulse Ox
98.1 F 81 20 112/71 96
10/14/24 07:45 10/14/24 07:45 10/14/24 07:45 10/14/24 07:45 10/14/24 07:45
I&O
10/13/24 10/14/24 10/15/24
06:59 06:59 06:59
Intake Total 480 / 480 840 / 840
Balance 480 / 480 840 / 840
Physical Exam
-
General: Comfortable
Respiratory: Clear to Auscultation (ant) and Non Labored Respirations; Negative Accessory Resp Muscle Use
Cardiac: Regular Rhythm and S1/S2; Negative Tachycardic
GI: Soft
Musculoskeletal: Edema, Right Upper Extrem, Edema, Left Upper Extrem, Edema, Right Lower Extrem and Edema, Left Lower Extrem
Neuro: AO x 3
Psych: Calm; Negative Confused
Data Reviewed
-
Labs: Labs Reviewed by me (accuchecks)
[2024-10-14 11:48] VITALS: BP 114/66
[2024-10-14 12:25] LABS: Glucose - Point of Care 84 mg/dl (70-99)
[2024-10-14 13:54] LABS: Urine Albumin Trace (Neg - Trace); Urine Bilirubin Negative (Negative); Urine Character Very Cloudy (Clear); Urine Color Yellow; Urine Glucose Negative (Negative); Urine Ketone Negative (Negative); Urine Leukocyte 2+ (Negative); Urine Nitrite Positive (Negative); Urine Occult Blood 1+ (Negative); Urine Urobilinogen Negative (Neg - 1+)
[2024-10-14 14:02] LABS: Urine Hyaline Cast 0-2 /LPF (0-2); Urine Squamous Cell 0-2 /LPF (Few)
[2024-10-14 14:04] LABS: Urine Bacteria Many (Negative); Urine White Cell >100 /HPF (0-5)
--- NOTE | 2024-10-14 14:15 | W.PN.NEPH.PH ---
Today's Communication / Plan
-
Continue diuretics
Assessment/Plan
-
Impression:
Sepsis/PNA
UTI hx
SANTOSH/CKD (2.4)
Hx of Adrenal insufficiency
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
Abdominal ascites/hypoalbuminemia
MAZARIEGOS cirrhosis
Paroxysmal atrial fibrillation
Chronic diastolic heart failure/history of hepatic encephalopathy
Hypothyroidism
Chronic compression L1 lumbar vertebrae
Nonambulatory
Plan:
SANTOSH:
-Patient's creatinine is down to 1.5 which is below her baseline following discharge from outside hospital when it was 2.4 following 3 dialysis sessions
-There is no acute dialysis requirement
-I suspect her underlying chronic kidney disease is due to multiple factors including underlying infection, cirrhosis with poor effective circulating volume, diastolic heart failure, and ongoing hemodynamic instability
-continue 10mg midodrine TID in the setting of her hypotension
-Her underlying hypoalbuminemia which is likely a function of her cirrhosis limits effective diuresis due to hemodynamic instability
-She is not a good long-term dialysis candidate even if dialysis would be required given her advanced comorbidities of MAZARIEGOS cirrhosis diastolic heart failure with ongoing hemodynamic instability
-Would hold off on Aldactone given propensity for hyperkalemia
Continue with diuretics
Bumex twice daily
no labs for the last 48 hours
-
-
Date of Service: October 14, 2024
CC / HPI / ROS
-
Chief Complaint:
Acute on chronic kidney disease secondary to cirrhosis, sepsis
History of Present Illness:
SANTOSH improved creatinine at baseline down to 1.5
Hemodynamically labile on midodrine support 3 times daily
Remains on ciprofloxacin
Review of Systems:
No chest pain or shortness of breath nonoliguric
No fevers
Weight up
Labs
-
Labs:
WBC 7.9 10^3/uL (4.8-10.8) 10/12/24 05:38
RBC 3.78 10^6/uL (4.20-5.40) L 10/12/24 05:38
Hgb 11.5 g/dL (12.0-16.0) L 10/12/24 05:38
Hct 35.6 % (37.0-47.0) L 10/12/24 05:38
Plt Count 116 10^3/uL (130-400) L 10/12/24 05:38
Sodium 136 mmol/L (135-145) 10/12/24 05:38
Potassium 4.2 mmol/L (3.5-5.1) 10/12/24 05:38
Chloride 100 mmol/L (98-107) 10/12/24 05:38
Carbon Dioxide 27 mmol/L (22-30) 10/12/24 05:38
BUN 51 mg/dl (7-17) H 10/12/24 05:38
Creatinine 1.6 mg/dL (0.6-1.0) H 10/12/24 05:38
eGFR 33.01 10/12/24 05:38
Glucose 70 mg/dl (70-99) 10/12/24 05:38
Calcium 8.9 mg/dl (8.4-10.2) 10/12/24 05:38
Phosphorus 5.0 mg/dl (2.5-4.5) H 10/07/24 01:48
Lze-G-Smzvbhxmkhn Pept 1140 pg/ml 10/06/24 14:34
Albumin 2.7 g/dl (3.5-5.0) L 10/12/24 05:38
Physical Exam
-
Vital Signs:
Vital Signs
Temp Pulse Resp BP Pulse Ox
98.1 F 111 18 114/66 94
10/14/24 11:48 10/14/24 11:48 10/14/24 11:48 10/14/24 11:48 10/14/24 11:48
Cardiovascular:: Regular rate and rhythm
Respiratory:: Bilateral: CTA
Lung Excursion:: Normal
Abdomen:: Soft
Bowel Sounds:: Normal
Extremity Edema:: +2: Bilateral:
Gutiérrez Catheter: Yes
[2024-10-14] MEDS: DUPHALAC/CHRONULAC PO (15:07)
[2024-10-14 15:21] VITALS: BP 93/60
[2024-10-14 16:13] LABS: Glucose - Point of Care 151 mg/dl (70-99)
[2024-10-14] MEDS: NOVOLOG FLEXPEN-LOW RESISTANCE 1 UNITS SC (17:01)
[2024-10-14 19:36] VITALS: BP 115/83
[2024-10-14] MEDS: MELATONIN 5 MG PO (21:03)
[2024-10-14] MEDS: PEPCID 20 MG PO (21:04)
[2024-10-14 21:41] LABS: Glucose - Point of Care 111 mg/dl (70-99)
[2024-10-14 23:40] VITALS: BP 113/70
[2024-10-15] VITALS (9 sets, daily range): BP systolic 84–113; BP diastolic 52–70; PULSE 88; O2SAT 97; BMI 36.9
--- NOTE | 2024-10-15 02:07 | PTCARENOTE ---
patient with no urine output. bladder scanned for 436 ml. 16 Fr vargas catheter inserted for acute retetntion as per house provider order. 400 ml cloudy yellow urine with sediment drained following catheter insertion
[2024-10-15] MEDS: SYNTHROID 75 MCG PO (05:34)
[2024-10-15 06:47] LABS: Blood Urea Nitrogen 48 mg/dl (7-17); Calcium 8.2 mg/dl (8.4-10.2); Carbon Dioxide 34 mmol/L (22-30); Chloride 98 mmol/L (98-107); Estimated Creatinine Clearance 33 ml/min; Glucose 86 mg/dl (70-99); Potassium 3.8 mmol/L (3.5-5.1); Sodium 137 mmol/L (135-145); eGFR 35.67
[2024-10-15 08:12] LABS: Glucose - Point of Care 75 mg/dl (70-99)
[2024-10-15] MEDS: NOVOLOG FLEXPEN-LOW RESISTANCE SC ×3 (09:16→17:21)
[2024-10-15] MEDS: CYMBALTA DELAYED RELEASE 30 MG PO (09:27)
[2024-10-15] MEDS: CIPRO 750 MG PO (09:28)
[2024-10-15] MEDS: ProAmatine 10 MG PO ×3 (09:28→21:20)
[2024-10-15] MEDS: FLORASTOR 250 MG PO ×2 (09:29→19:51)
[2024-10-15] MEDS: BUMEX 1 MG PO ×2 (09:29→19:51)
[2024-10-15] MEDS: XIFAXAN 550 MG PO ×2 (09:29→19:51)
[2024-10-15] MEDS: CARDIZEM CD 120 MG PO (09:29)
[2024-10-15] MEDS: DELTASONE 5 MG PO (09:30)
[2024-10-15] MEDS: ZEBETA 10 MG PO (09:30)
[2024-10-15] MEDS: CYTOMEL 5 MICROGRAM PO (09:30)
[2024-10-15] MEDS: ELIQUIS 5 MG PO ×2 (09:30→19:51)
[2024-10-15] MEDS: DUPHALAC/CHRONULAC 20 GRAMS PO ×2 (09:31→21:20)
[2024-10-15] MEDS: DESENEX/MITRAZOL/ZEASORB 1 APPLIC TOPICAL ×2 (09:31→19:58)
--- NOTE | 2024-10-15 09:36 | W.PN.ID1 ---
Date of Service
Date of Service: October 15, 2024
Today's Communication
Continue antibiotics. Follow creatinine clearance
Assessment / Plan
Leukocytosis; improved
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
Lactic acidosis
Protein calorie malnutrition (albumin = 2.9)
- chronic, mild (moderate to severe fluid accumulation; albumin <3.0)
Diffuse anasarca secondary to above
CKD stage III
MAZARIEGOS cirrhosis with anasarca
Hx hepatic encephalopathy
P A-fib
Diastolic CHF
Hx pituitary cyst
EDELMIRA on CPAP (reportedly noncompliant)
Dyslipidemia
Hypothyroidism
GERD
Morbid obesity
L1 compression fracture
Orthostatic hypotension
HTN
Adrenal insufficiency
Recommendations:
Continue ciprofloxacin. Records from OSH reviewed. Patient to remain on ciprofloxacin through 10/23, and then the plan was to maintain on indefinite suppression.
Monitor creatinine and estimated creatinine clearance for dosing adjustment. Currently she is right on the cusp for dose modification but would like to see estimated creatinine clearance remained above 30 for several days before changing.
Previously stressed importance to patient, and daughter the importance of follow-up with Orthopedics and other specialists from OSH following discharge.
����������������������������������������������������������
Chief Complaint
-: Other (Hx left knee prosthetic joint infection)
Subjective / Review of Systems
Review of Systems: No Fever and No Chills
Vital Signs / Physical Exam
Vital Signs
Vital Signs
Temp Pulse Resp BP Pulse Ox
97.7 F 87 16 107/66 95
10/15/24 09:26 10/15/24 09:26 10/15/24 09:26 10/15/24 09:26 10/15/24 09:26
Physical Exam
Constitutional: No Acute Distress, Comfortable, Chronically Ill, Non-toxic and Obese
Eyes: Sclera Anicteric
Cardiovascular: S1/S2; Negative S3/S4
Pulmonary: Non Labored
Gastrointestinal: Non Distended
Extremities: Edema (4+ edema of upper and lower extremities)
Skin: Other (Extremely thin skin, with hemorrhagic bullae noted on left upper extremity.)
Neurological: Awake and Alert
Psychological: Calm
Objective Data
Lab Data
Lab Results
10/12/24 05:38
10/15/24 06:01
ESR 17 mm/hour (0-20) 10/06/24 13:26
PT 29.0 Sec (11.4-14.6) H 10/06/24 13:35
INR 2.74 10/06/24 13:35
APTT 38.6 Sec (23.4-35.0) H 10/06/24 13:35
Estimated Creat Clear 33 ml/min 10/15/24 06:01
Lactic Acid 1.6 mmol/L (0.7-2.0) 10/09/24 05:09
Total Bilirubin 2.0 mg/dl (0.2-1.3) H 10/12/24 05:38
AST 31 U/L (14-36) 10/12/24 05:38
ALT 23 U/L (0-35) 10/12/24 05:38
Alkaline Phosphatase 171 U/L (38-126) H 10/12/24 05:38
C-Reactive Protein 30.80 mg/L (0.0-10.00) H 10/06/24 14:34
Most recent labs reviewed.
Micro Results:
10/14/24 13:43 Urine Culture - Pending
Urine
10/06/24 15:45 Blood Culture - Final
Blood/Venous No Growth - Final Report
10/06/24 15:16 Blood Culture - Final
Blood/Venous No Growth - Final Report
10/07/24 01:48 MRSA Screen - Final
Nose No Methicillin Resistant Staphylococcus aureus isolated.
10/06/24 15:16 Urine Culture - Final
Urine
10/06/24 18:36 Influenza Types A & B (TRISTAN) - Final
Nasal Swab Negative for Influenza A & B, NAAT
Negative results must be combined with clinical observations
and patient history.
Nucleic Acid Amplification test (NAAT)performed on the
[employer] platform.
--- NOTE | 2024-10-15 10:00 | CM ---
Reviewed the chart notes. Call placed to insurance [employer] dept answering machine # is [phone] requesting status of auth that was started on 10/12/2024. Wait call back. CM continues to be available to patient/family and is monitoring
medical plan for needs at discharge.
Plan: Discharge to [facility] once auth obtained.
[2024-10-15 12:04] LABS: Glucose - Point of Care 146 mg/dl (70-99)
[2024-10-15] MEDS: DUPHALAC/CHRONULAC PO ×2 (13:43→17:24)
--- NOTE | 2024-10-15 14:32 | W.PN.NEPH.PH ---
Today's Communication / Plan
-
follow BMP
Assessment/Plan
-
Impression:
Sepsis/PNA
UTI hx
SANTOSH/CKD (2.4)
Hx of Adrenal insufficiency
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
Abdominal ascites/hypoalbuminemia
MAZARIEGOS cirrhosis
Paroxysmal atrial fibrillation
Chronic diastolic heart failure/history of hepatic encephalopathy
Hypothyroidism
Chronic compression L1 lumbar vertebrae
Nonambulatory
Plan:
follow BMP
continue bumex
voiding trial
rehab placement
-
-
Date of Service: October 15, 2024
CC / HPI / ROS
-
Chief Complaint:
Acute on chronic kidney disease secondary to cirrhosis, sepsis
History of Present Illness:
SANTOSH improved creatinine at baseline down to 1.5
Hemodynamically stable on midodrine support 3 times daily
Remains on ciprofloxacin
vargas in place for retention
Review of Systems:
No chest pain or shortness of breath
Labs
-
Labs:
WBC 7.9 10^3/uL (4.8-10.8) 10/12/24 05:38
RBC 3.78 10^6/uL (4.20-5.40) L 10/12/24 05:38
Hgb 11.5 g/dL (12.0-16.0) L 10/12/24 05:38
Hct 35.6 % (37.0-47.0) L 10/12/24 05:38
Plt Count 116 10^3/uL (130-400) L 10/12/24 05:38
Sodium 137 mmol/L (135-145) 10/15/24 06:01
Potassium 3.8 mmol/L (3.5-5.1) 10/15/24 06:01
Chloride 98 mmol/L (98-107) 10/15/24 06:01
Carbon Dioxide 34 mmol/L (22-30) H 10/15/24 06:01
BUN 48 mg/dl (7-17) H 10/15/24 06:01
Creatinine 1.5 mg/dL (0.6-1.0) H 10/15/24 06:01
eGFR 35.67 10/15/24 06:01
Glucose 86 mg/dl (70-99) 10/15/24 06:01
Calcium 8.2 mg/dl (8.4-10.2) L 10/15/24 06:01
Phosphorus 5.0 mg/dl (2.5-4.5) H 10/07/24 01:48
Uxq-X-Qnebeugsxfr Pept 1140 pg/ml 10/06/24 14:34
Albumin 2.7 g/dl (3.5-5.0) L 10/12/24 05:38
Physical Exam
-
Vital Signs:
Vital Signs
Temp Pulse Resp BP Pulse Ox
97.5 F 84 17 101/67 96
10/15/24 11:06 10/15/24 11:06 10/15/24 11:06 10/15/24 11:06 10/15/24 11:06
Cardiovascular:: Regular rate and rhythm
Respiratory:: Bilateral: Coarse
Lung Excursion:: Normal
Abdomen:: Nontender and Soft
Bowel Sounds:: Normal
Extremity Edema:: +1: Bilateral:
--- NOTE | 2024-10-15 14:52 | W.PN.HOSP.TC ---
Addendum entered and electronically signed by Bryce Courtney MD 10/15/24 15:59:
Stage 1 left heel pressure injury, POA
Original Note:
Today's Communication/Plan
-
Continue current cardiovascular regimen including Bumex.
Continue Gutiérrez catheter for acute retention.
Outpatient trial of voiding.
Oral antibiotics
Discharge planing
Assessment / Plan
Assessment / Plan
Impression
Sepsis present on admission
Acute on chronic hypotension presumably secondary to septic shock
Toxic metabolic encephalopathy on presentation
Conditions prior to admission:
Recent hospitalization in outside hospital for left PE septic prosthetic arthritis reportedly culture positive for Pseudomonas. Discharged on ciprofloxacin
UTI with Klebsiella reported at that admission.
Reported penicillin and meropenem allergy
Acute kidney injury requiring 3 hemodialysis session.
CKD stage IIIb with baseline creatinine 1.4.
MAZARIEGOS cirrhosis with anasarca.
History of hepatic encephalopathy.
Paroxysmal atrial fibrillation baseline anticoagulation with Eliquis
Chronic diastolic CHF
History of pituitary cyst
Obstructive sleep apnea not compliant with CPAP
Dyslipidemia
Hypothyroidism on replacement
GERD.
Obesity with BMI of 38 chronic compression fracture at L1
Plan:
Presentation with clinical sepsis.
Currently afebrile with normal WBC.
Possible sources: Left knee prosthetic arthritis, versus UTI, versus left lower lobe pneumonia.
Empiric antibiotics levofloxacin adjusted to renal function.
Blood cultures negative to date
Urine cultures negative to date
ID consultation appreciated
Transitioned back to Cipro as per ID
Hypotension multifactorial possibly due to septic shock as well as underlying cirrhosis with systemic vasodilation
Acute on chronic hypotension
Had not required pressors.
As hemodynamics relatively improved and mental status back to baseline hold further IV fluids
cw antihypertensives including diltiazem with parameters
cw Bumex with parameters
Continue midodrine 10 mg p.o. 3 times daily
Toxic metabolic encephalopathy.
Suspect secondary to acute illness
Doubt hepatic encephalopathy.
CT scan of the head with no acute abnormal
Resolved
SANTOSH
Patient baseline creatinine 1.4.
2.7 upon presentation.
Reported required 3 hemodialysis session with recent outside hospitalization.
Nephrology consulted.
Monitor urine output.
Monitor for retention.
Resumed bumex and monitor BMP
Improved Cr
Acute urine retention
Required Gutiérrez catheter placement on 10/15 with PVR of 400
Will need outpatient voiding trial.
MAZARIEGOS cirrhosis.
Noted lethargic on admission, currently improving.
Hepatic encephalopathy ruled out.
Continue lactulose and rifaximin.
Severe anasarca.
Would be difficult to mobilize fluid from third spacing.
cw Bumex
Paroxysmal atrial fibrillation.
Monitor on telemetry.
cw Cardizem.
Continue Eliquis
Chronic CHF preserved EF.
Echo 03/15 LVEF 48-50%.
Monitor volume status closely.
Resume diuretics when hemodynamics are stable
Wt stable
Hypothyroidism on replacement
Hypoglycemia -Resolved .CW regular diet for now.
Obstructive sleep apnea.
Not compliant with CPAP.
Full code
Medically stable for DC to rehab when auth is in .
DW CM today- no auth yet
DW at bedside
Anticipated Discharge: 24 - 48 hours
Subjective/Interval History
-
Date of Service: October 15, 2024
Objective Data
-
Labs:
Laboratory Results
10/15/24
06:01
Sodium 137
Potassium 3.8
Chloride 98
Carbon Dioxide 34 H
BUN 48 H
Creatinine 1.5 H
Glucose 86
Calcium 8.2 L
Vital Signs:
Vital Signs
Temp Pulse Resp BP Pulse Ox
97.5 F 84 17 101/67 96
10/15/24 11:06 10/15/24 11:06 10/15/24 11:06 10/15/24 11:06 10/15/24 11:06
I&O
10/14/24 10/15/24 10/16/24
06:59 06:59 06:59
Intake Total 840 / 840 1060 / 1060
Output Total 2410 / 2410
Balance 840 / 840 -1350 / -1350
Physical Exam
-
General: Comfortable
Respiratory: Clear to Auscultation (ant) and Non Labored Respirations; Negative Accessory Resp Muscle Use
Cardiac: Regular Rhythm and S1/S2; Negative Tachycardic
GI: Soft
Genito-urinary: Gutiérrez
Musculoskeletal: Edema, Right Upper Extrem, Edema, Left Upper Extrem, Edema, Right Lower Extrem and Edema, Left Lower Extrem
Neuro: AO x 3
Psych: Calm; Negative Confused
[2024-10-15] MEDS: COMPAZINE 5 MG IV (14:59)
[2024-10-15 16:29] LABS: Glucose - Point of Care 109 mg/dl (70-99)
--- NOTE | 2024-10-15 16:29 | PTCARENOTE ---
Pt remains bedrest. BP recheck after PM midodrine improved 110/53. Incontinence care, anf vargas care. Vargas continues to drain cloudy yellow urine with sediment. CB in reach, spouse is bedside.
[2024-10-15] MEDS: MELATONIN PO ×2 (21:20→21:28)
[2024-10-15 21:47] LABS: Glucose - Point of Care 159 mg/dl (70-99)
[2024-10-16] MEDS: SYNTHROID 75 MCG PO (04:50)
[2024-10-16 04:56] VITALS: BMI 36.6
[2024-10-16 05:42] LABS: Blood Urea Nitrogen 49 mg/dl (7-17); Carbon Dioxide 33 mmol/L (22-30); Chloride 97 mmol/L (98-107); Estimated Creatinine Clearance 33 ml/min; Glucose 91 mg/dl (70-99); Potassium 3.7 mmol/L (3.5-5.1); Sodium 138 mmol/L (135-145); eGFR 35.67
[2024-10-16 07:53] LABS: Glucose - Point of Care 73 mg/dl (70-99)
[2024-10-16 08:00] VITALS: BP 106/72
[2024-10-16] MEDS: NOVOLOG FLEXPEN-LOW RESISTANCE SC ×3 (08:18→16:18)
[2024-10-16] MEDS: ELIQUIS 5 MG PO (08:19)
[2024-10-16] MEDS: CYMBALTA DELAYED RELEASE 30 MG PO (08:19)
[2024-10-16] MEDS: XIFAXAN 550 MG PO (08:19)
[2024-10-16] MEDS: ProAmatine 10 MG PO ×2 (08:19→16:00)
[2024-10-16] MEDS: CIPRO 750 MG PO (08:19)
[2024-10-16] MEDS: DUPHALAC/CHRONULAC 20 GRAMS PO ×2 (08:19→14:41)
[2024-10-16] MEDS: FLORASTOR 250 MG PO (08:20)
[2024-10-16] MEDS: CARDIZEM CD 120 MG PO (08:20)
[2024-10-16] MEDS: CYTOMEL 5 MICROGRAM PO (08:20)
[2024-10-16] MEDS: DESENEX/MITRAZOL/ZEASORB 1 APPLIC TOPICAL (08:20)
[2024-10-16] MEDS: BUMEX 1 MG PO (08:20)
[2024-10-16] MEDS: DELTASONE 5 MG PO (08:20)
[2024-10-16] MEDS: ZEBETA 10 MG PO (08:20)
--- NOTE | 2024-10-16 08:29 | CM ---
Reviewed the chart notes. Call placed and message left with the UR dept ([phone]) with insurance regarding auth that was started on 10/05/2024 for [facility]. CM continues to be available to patient/family and is monitoring medical
plan for needs at discharge.
Plan: Discharge to [facility] once auth obtained.
--- NOTE | 2024-10-16 11:54 | CM ---
TC from [facility] with [employer]
Insurance authorization for skilled - SNF level 2
Approved start date 10/16/24, LCD and NRD 10/29/24- have facility send a admission notification fax.
Authorization # [id number]
Updates to [facility]
--- NOTE | 2024-10-16 12:01 | CM ---
Addendum entered by Marylou Saldivar RN 10/16/24 13:56:
Patient's daughter Ethel updated on discharge to [facility] today.
Addendum entered by Marylou Saldivar RN 10/16/24 12:19:
Plan: Discharge to [facility]
Call report to: [phone]
Fax report to: [phone]
Medical necessity and transport form on chart.
Original Note:
IMM reviewed and placed on chart.
[2024-10-16 12:50] LABS: Glucose - Point of Care 78 mg/dl (70-99)
--- NOTE | 2024-10-16 13:35 | W.PN.NEPH.PH ---
Today's Communication / Plan
-
increase bumex
Assessment/Plan
-
Impression:
Sepsis/PNA
UTI hx
SANTOSH/CKD (2.4)
Hx of Adrenal insufficiency
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
Abdominal ascites/hypoalbuminemia
MAZARIEGOS cirrhosis
Paroxysmal atrial fibrillation
Chronic diastolic heart failure/history of hepatic encephalopathy
Hypothyroidism
Chronic compression L1 lumbar vertebrae
Nonambulatory
Plan:
follow BMP
continue bumex, increase to 10/27
could add flomax so long as BP stable
rehab placement
-
-
Date of Service: October 16, 2024
CC / HPI / ROS
-
Chief Complaint:
Acute on chronic kidney disease secondary to cirrhosis, sepsis
History of Present Illness:
SANTOSH improved creatinine at baseline down to 1.5
Hemodynamically stable on midodrine support 3 times daily
Remains on ciprofloxacin
vargas in place for retention
Review of Systems:
No chest pain or shortness of breath
reports skin tears in arms and weeping
Labs
-
Labs:
WBC 7.9 10^3/uL (4.8-10.8) 10/12/24 05:38
RBC 3.78 10^6/uL (4.20-5.40) L 10/12/24 05:38
Hgb 11.5 g/dL (12.0-16.0) L 10/12/24 05:38
Hct 35.6 % (37.0-47.0) L 10/12/24 05:38
Plt Count 116 10^3/uL (130-400) L 10/12/24 05:38
Sodium 138 mmol/L (135-145) 10/16/24 04:51
Potassium 3.7 mmol/L (3.5-5.1) 10/16/24 04:51
Chloride 97 mmol/L (98-107) L 10/16/24 04:51
Carbon Dioxide 33 mmol/L (22-30) H 10/16/24 04:51
BUN 49 mg/dl (7-17) H 10/16/24 04:51
Creatinine 1.5 mg/dL (0.6-1.0) H 10/16/24 04:51
eGFR 35.67 10/16/24 04:51
Glucose 91 mg/dl (70-99) 10/16/24 04:51
Calcium 8.0 mg/dl (8.4-10.2) L 10/16/24 04:51
Phosphorus 5.0 mg/dl (2.5-4.5) H 10/07/24 01:48
Qrs-R-Darndphbkly Pept 1140 pg/ml 10/06/24 14:34
Albumin 2.7 g/dl (3.5-5.0) L 10/12/24 05:38
Physical Exam
-
Vital Signs:
Vital Signs
Temp Pulse Resp BP Pulse Ox
97.9 F 106 17 106/72 93
10/16/24 08:00 10/16/24 08:00 10/16/24 08:00 10/16/24 08:00 10/16/24 08:00
Cardiovascular:: Regular rate and rhythm
Respiratory:: Bilateral: CTA
Lung Excursion:: Normal
Abdomen:: Nontender and Soft
Bowel Sounds:: Normal
Extremity Edema:: +3: Bilateral:
--- NOTE | 2024-10-16 13:48 | W.PN.HOSP.TC ---
Today's Communication/Plan
-
Creatinine has been stable on current dose of Bumex.
Gutiérrez has been in place for acute retention with plan for outpatient trial of voiding.
Medically optimized for discharge to detention facility pending insurance authorization
Assessment / Plan
Assessment / Plan
Impression
Sepsis present on admission
Acute on chronic hypotension presumably secondary to septic shock
Toxic metabolic encephalopathy on presentation
Conditions prior to admission:
Recent hospitalization in outside hospital for left PE septic prosthetic arthritis reportedly culture positive for Pseudomonas. Discharged on ciprofloxacin
UTI with Klebsiella reported at that admission.
Reported penicillin and meropenem allergy
Acute kidney injury requiring 3 hemodialysis session.
CKD stage IIIb with baseline creatinine 1.4.
MAZARIEGOS cirrhosis with anasarca.
History of hepatic encephalopathy.
Paroxysmal atrial fibrillation baseline anticoagulation with Eliquis
Chronic diastolic CHF
History of pituitary cyst
Obstructive sleep apnea not compliant with CPAP
Dyslipidemia
Hypothyroidism on replacement
GERD.
Obesity with BMI of 38 chronic compression fracture at L1
Plan:
Presentation with clinical sepsis.
Currently afebrile with normal WBC.
Possible sources: Left knee prosthetic arthritis, versus UTI, versus left lower lobe pneumonia.
Empiric antibiotics levofloxacin adjusted to renal function.
Blood cultures negative to date
Urine cultures negative to date
ID consultation appreciated
Transitioned back to Cipro as per ID
Hypotension multifactorial possibly due to septic shock as well as underlying cirrhosis with systemic vasodilation
Acute on chronic hypotension
Had not required pressors.
As hemodynamics relatively improved and mental status back to baseline hold further IV fluids
cw antihypertensives including diltiazem with parameters
cw Bumex with parameters
Continue midodrine 10 mg p.o. 3 times daily
Toxic metabolic encephalopathy.
Suspect secondary to acute illness
Doubt hepatic encephalopathy.
CT scan of the head with no acute abnormal
Resolved
SANTOSH
Patient baseline creatinine 1.4.
2.7 upon presentation.
Reported required 3 hemodialysis session with recent outside hospitalization.
Nephrology consulted.
Monitor urine output.
Monitor for retention.
Resumed bumex and monitor BMP
Improved Cr
Acute urine retention
Required Gutiérrez catheter placement on 10/15 with PVR of 400
Will need outpatient voiding trial.
MAZARIEGOS cirrhosis.
Noted lethargic on admission, currently improving.
Hepatic encephalopathy ruled out.
Continue lactulose and rifaximin.
Severe anasarca.
Would be difficult to mobilize fluid from third spacing.
cw Bumex
Paroxysmal atrial fibrillation.
Monitor on telemetry.
cw Cardizem.
Continue Eliquis
Chronic CHF preserved EF.
Echo 03/15 LVEF 48-50%.
Monitor volume status closely.
Resume diuretics when hemodynamics are stable
Wt stable
Hypothyroidism on replacement
Hypoglycemia -Resolved .CW regular diet for now.
Obstructive sleep apnea.
Not compliant with CPAP.
Full code
Medically stable for DC to rehab when auth is in .
DW CM today- no auth yet
DW at bedside
Anticipated Discharge: Within 24 hours
Subjective/Interval History
-
Date of Service: October 16, 2024
Objective Data
-
Labs:
Laboratory Results
10/16/24
04:51
Sodium 138
Potassium 3.7
Chloride 97 L
Carbon Dioxide 33 H
BUN 49 H
Creatinine 1.5 H
Glucose 91
Calcium 8.0 L
Vital Signs:
Vital Signs
Temp Pulse Resp BP Pulse Ox
97.9 F 106 17 106/72 93
10/16/24 08:00 10/16/24 08:00 10/16/24 08:00 10/16/24 08:00 10/16/24 08:00
I&O
10/15/24 10/16/24 10/17/24
06:59 06:59 06:59
Intake Total 1060 / 1060 960 / 960
Output Total 2410 / 2410 1250 / 1250
Balance -1350 / -1350 -290 / -290
Physical Exam
-
General: Comfortable
Respiratory: Clear to Auscultation (ant) and Non Labored Respirations; Negative Accessory Resp Muscle Use
Cardiac: Regular Rhythm and S1/S2; Negative Tachycardic
GI: Soft
Genito-urinary: Gutiérrez
Musculoskeletal: Edema, Right Upper Extrem, Edema, Left Upper Extrem, Edema, Right Lower Extrem and Edema, Left Lower Extrem
Neuro: AO x 3
Psych: Calm; Negative Confused
--- NOTE | 2024-10-16 13:55 | W.DS.TRANS ---
Addendum entered and electronically signed by Bryce Courtney MD 10/16/24 15:42:
Cipro dose adjusted to 500mg BID
Original Note:
DC Summary - Perfumer
-
Discharge Instructions:
Discharge Diagnosis/Procedures Impression
Sepsis present on admission
Acute on chronic hypotension presumably
secondary to septic shock
Toxic metabolic encephalopathy on presentation
Conditions prior to admission:
Recent hospitalization in outside hospital for
left PE septic prosthetic arthritis reportedly
culture positive for Pseudomonas. Discharged on
ciprofloxacin
UTI with Klebsiella reported at that admission.
Reported penicillin and meropenem allergy
Acute kidney injury requiring 3 hemodialysis
session.
CKD stage IIIb with baseline creatinine 1.4.
MAZARIEGOS cirrhosis with anasarca.
History of hepatic encephalopathy.
Paroxysmal atrial fibrillation baseline
anticoagulation with Eliquis
Chronic diastolic CHF
History of pituitary cyst
Obstructive sleep apnea not compliant with CPAP
Dyslipidemia
Hypothyroidism on replacement
GERD.
Obesity with BMI of 38 chronic compression
fracture at L1
Instructions:
Stand-Alone Forms:
Changes to Home Medications: Yes
Discharge Medications:
DC Medications w/original date entered in [facility]
liothyronine 5 mcg tablet 5 mcg PO DAILY Thyroid 10/17/19
rifaximin 550 mg tablet (Xifaxan) 550 mg PO BID Liver Issues 10/17/19
prednisone 5 mg tablet 5 mg PO DAILY Anti-Inflammatory 12/14/23
levothyroxine 75 mcg tablet 75 mcg PO DAILY Thyroid 02/29/24
alendronate 70 mg tablet 70 mg PO MO osteoporosis 05/01/24
apixaban 2.5 mg tablet (Eliquis) 5 mg PO BID Blood Clot Prevention/Tx 05/01/24
bisoprolol fumarate 5 mg tablet 10 mg PO DAILY Blood Pressure 05/01/24
diltiazem HCl 120 mg capsule,extended release 24 hr (Cartia XT) 120 mg PO DAILY Arrhythmia 05/01/24
Saccharomyces boulardii 250 mg capsule 250 mg PO BID 10/06/24
ciprofloxacin HCl 750 mg tablet 750 mg PO DAILY 10/06/24
duloxetine 30 mg capsule,delayed release sprinkle 30 mg PO DAILY 10/06/24
lactulose 20 gram/30 mL oral solution 30 ml PO QID 10/06/24
midodrine 10 mg tablet 10 mg PO TID 10/06/24
bumetanide 1 mg tablet 1 mg PO BID #60 tabs 10/12/24
oxycodone 5 mg tablet 5 mg PO Q6H PRN pain #14 tabs 10/12/24
Home Medication Changes
Bumex increased
Spironolactone discontinued
Pending Results: No
--- NOTE | 2024-10-16 15:36 | W.PN.ID1 ---
Date of Service
Date of Service: October 16, 2024
Today's Communication
Continue with current course of ciprofloxacin.
Assessment / Plan
Leukocytosis; improved
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
Lactic acidosis
Protein calorie malnutrition (albumin = 2.9)
- chronic, mild (moderate to severe fluid accumulation; albumin <3.0)
Diffuse anasarca secondary to above
CKD stage III
MAZARIEGOS cirrhosis with anasarca
Hx hepatic encephalopathy
P A-fib
Diastolic CHF
Hx pituitary cyst
EDELMIRA on CPAP (reportedly noncompliant)
Dyslipidemia
Hypothyroidism
GERD
Morbid obesity
L1 compression fracture
Orthostatic hypotension
HTN
Adrenal insufficiency
Recommendations:
Continue ciprofloxacin. Records from OSH reviewed. Patient to remain on full dose ciprofloxacin through 10/23, and then the plan was to maintain on indefinite suppression.
Monitor creatinine and estimated creatinine clearance for dosing adjustment. Creatinine clearance has remained above 30 for the past several days; will change to 500 mg twice daily.
Previously stressed importance to patient, and daughter the importance of follow-up with Orthopedics and other specialists from OSH following discharge.
����������������������������������������������������������
Chief Complaint
-: Other (Hx left knee prosthetic joint infection)
Subjective / Review of Systems
Review of Systems: No Fever and No Chills
Vital Signs / Physical Exam
Vital Signs
Vital Signs
Temp Pulse Resp BP Pulse Ox
97.9 F 106 17 106/72 93
10/16/24 08:00 10/16/24 08:00 10/16/24 08:00 10/16/24 08:00 10/16/24 08:00
Physical Exam
Constitutional: No Acute Distress, Comfortable, Chronically Ill, Non-toxic and Obese
Eyes: Sclera Anicteric
Pulmonary: Non Labored
Gastrointestinal: Non Distended
Extremities: Edema (4+ edema of upper and lower extremities)
Neurological: Awake and Alert
Psychological: Calm
Objective Data
Lab Data
Lab Results
10/12/24 05:38
10/16/24 04:51
ESR 17 mm/hour (0-20) 10/06/24 13:26
PT 29.0 Sec (11.4-14.6) H 10/06/24 13:35
INR 2.74 10/06/24 13:35
APTT 38.6 Sec (23.4-35.0) H 10/06/24 13:35
Estimated Creat Clear 33 ml/min 10/16/24 04:51
Lactic Acid 1.6 mmol/L (0.7-2.0) 10/09/24 05:09
Total Bilirubin 2.0 mg/dl (0.2-1.3) H 10/12/24 05:38
AST 31 U/L (14-36) 10/12/24 05:38
ALT 23 U/L (0-35) 10/12/24 05:38
Alkaline Phosphatase 171 U/L (38-126) H 10/12/24 05:38
C-Reactive Protein 30.80 mg/L (0.0-10.00) H 10/06/24 14:34
Most recent labs reviewed.
Micro Results:
10/14/24 13:43 Urine Culture - Preliminary
Urine
10/06/24 15:45 Blood Culture - Final
Blood/Venous No Growth - Final Report
10/06/24 15:16 Blood Culture - Final
Blood/Venous No Growth - Final Report
10/07/24 01:48 MRSA Screen - Final
Nose No Methicillin Resistant Staphylococcus aureus isolated.
10/06/24 15:16 Urine Culture - Final
Urine
10/06/24 18:36 Influenza Types A & B (TRISTAN) - Final
Nasal Swab Negative for Influenza A & B, NAAT
Negative results must be combined with clinical observations
and patient history.
Nucleic Acid Amplification test (NAAT)performed on the
[employer] platform.
Care Review
Plan reviewed with: Physician (Hospitalist)
[2024-10-16 15:50] VITALS: BP 134/91
[2024-10-16] MEDS: BUMEX 2 MG PO (16:00)
[2024-10-16 16:19] LABS: Glucose - Point of Care 128 mg/dl (70-99)
== END 2024-10-16 16:50 | DRG 314 ==
LOC: 2 NORTH 19:56
PROVIDERS: Clinical Nurse Specialist Family Health; Emergency Medicine; Internal Medicine; Physician Assistant; Specialist; ADMITTING PHYSICIAN Hospitalist; ATTENDING PHYSICIAN Internal Medicine; CONSULT PHYSICIAN Internal Medicine; CONSULT PHYSICIAN Internal Medicine Infectious Disease; CONSULT PHYSICIAN Specialist; EMERGENCY PHYSICIAN Emergency Medicine; FAMILY PHYSICIAN Internal Medicine
DX: I95.9 Hypotension, unspecified (principal); G92.8 Other toxic encephalopathy; E27.40 Unspecified adrenocortical insufficiency; I13.0 Hypertensive heart and chronic kidney disease with heart failure and stage 1 through stage 4 chronic kidney disease, or unspecified chronic kidney disease; I50.32 Chronic diastolic (congestive) heart failure; N17.9 Acute kidney failure, unspecified; E44.1 Mild protein-calorie malnutrition; R65.10 Systemic inflammatory response syndrome (SIRS) of non-infectious origin without acute organ dysfunction; M81.0 Age-related osteoporosis without current pathological fracture; E03.9 Hypothyroidism, unspecified; E66.01 Morbid (severe) obesity due to excess calories; E66.812 Obesity, class 2; E78.00 Pure hypercholesterolemia, unspecified; K75.81 Nonalcoholic steatohepatitis (NASH); K74.60 Unspecified cirrhosis of liver; K21.9 Gastro-esophageal reflux disease without esophagitis; N18.32 Chronic kidney disease, stage 3b; K76.82 Hepatic encephalopathy; R33.8 Other retention of urine; I48.0 Paroxysmal atrial fibrillation; G47.33 Obstructive sleep apnea (adult) (pediatric); L89.621 Pressure ulcer of left heel, stage 1; Z11.52 Encounter for screening for COVID-19; Z68.38 Body mass index [BMI] 38.0-38.9, adult; Z88.0 Allergy status to penicillin; Z79.01 Long term (current) use of anticoagulants; Z79.52 Long term (current) use of systemic steroids; Z79.899 Other long term (current) drug therapy; Z79.890 Hormone replacement therapy; F32.A Depression, unspecified; Z86.73 Personal history of transient ischemic attack (TIA), and cerebral infarction without residual deficits; Z88.1 Allergy status to other antibiotic agents
CPT/HCPCS: 51701; 70450; 71046; 73560; 76604; 76705; 80048; 80053; 81003; 81015; 82140; 82962; 83036; 83605; 83735; 83880; 84100; 84484; 85025; 85610; 85652; 85730; 86140; 87040; 87070; 87077; 87086; 87186; 87502; 87811; 93005; 96361; 96365; 97116; 97163; 97167; 97530; 97535; 99291; P9047

== ENCOUNTER 2024-10-26 04:45 | Inpatient (IN) | payer OTHER, SELFPAY ==
[2024-10-25 23:04] VITALS: BMI 38.1
[2024-10-25 23:15] VITALS: BP 92/57
--- NOTE | 2024-10-25 23:21 | ED.GENMED ---
History of Present Illness
General
Chief Complaint: Abnormal Lab Value
Time Seen by Provider: 10/25/24 23:06
History of Present Illness
History of Present Illness:
79-year-old female with history of A-fib on Eliquis, CHF, EDELMIRA, MAZARIEGOS cirrhosis presenting to the emergency department from nursing facility with elevated creatinine. Patient's creatinine from today was 3.2, had previously been 1.7. Patient
presently without acute complaints, does note that she has been coughing, however this has been ongoing for weeks. On review of EMR, recent hospitalization from 10/06 to 10/16 for sepsis from suspected UTI. At that time the highest patient's
creatinine was 2.7, down trended to 1.5. Patient did have acute urinary retention, required a Gutiérrez upon DC with plan of outpatient voiding trial. Per nursing facility, patient had been urinating, had a Gutiérrez placed today. Patient is unsure when
the last time she urinated. She presently denies chest pain, difficulty breathing. Patient with chronic wounds to her upper extremities with underlying anasarca.
Past History
Past History
ED Past Medical History: Arrthythmia (Atrial fibrillation), CHF, HTN, Hypercholesterolemia and Other (Pituitary cyst, Adrenal insufficiency, UTIs)
ED Past Surgical History: , Orthopedic and Tonsilectomy
Social History
Tobacco: Non-smoker
Alcohol: None
Drug: None
Personal:
Family History
Family History: Other (reviewed and non-contributory)
Phy Exam
Physical Exam
Physical Exam:
General: Well-appearing, no clinical signs of dehydration, nontoxic and in no acute distress
HEENT: protecting airway
Neck: appears supple
CV: Normal heart rate, regular rhythm
Resp: No accessory muscle use, no increased work of breathing, lungs clear to auscultation bilaterally
Abd: Soft and non-distended, no tenderness to palpation
Extremities: Anasarca to bilateral upper and lower extremities with chronic wounds to the upper extremities and left lower extremity. Swelling is symmetrical
Neuro: alert, no focal neurologic deficit
: deferred
Rectal: deferred
Psych: Normal affect
Skin: Intact
Course
Orders/Labs/Results
Orders:
Orders
10/25/24 23:15
Urinalysis Reflex To Culture Urgent
Date Specimen was Collected: 10/26/24
Time Specimen was Collected: 00:04
10/25/24 23:16
CR Chest - 2 Views Urgent
Comment:
Reason For Exam: cough
10/25/24 23:35
Complete Blood Count/With Diff Urgent
Comprehensive Metabolic Panel Urgent
10/26/24 00:08
Urine Microscopic Reflex Cult Urgent
Urine Culture Urgent
NIKKI Source: U
Specimen Description:
Date Specimen was Collected: 10/26/24
Time Specimen was Collected: 00:04
Abnormal Lab Results
10/25/24 10/26/24
23:35 00:08
WBC 11.7 H 10^3/uL
(4.8-10.8)
RBC 3.84 L 10^6/uL
(4.20-5.40)
Hgb 11.6 L g/dL
(12.0-16.0)
Hct 34.9 L %
(37.0-47.0)
RDW 19.3 H %
(11.5-14.5)
Abs Immat Gran (auto) 0.2 H 10^3/uL
(0-0.05)
Absolute Neuts (auto) 9.5 H 10^3/uL
(1.4-6.5)
Absolute Lymphs (auto) 0.9 L 10^3/uL
(1.2-3.4)
Absolute Monos (auto) 1.0 H 10^3/uL
(0.1-0.6)
Immature Gran % 2.1 H %
(0-0.5)
Neutrophils % 81.3 H %
(42.2-75.2)
Lymphocytes % 7.5 L %
(20.5-51.1)
Sodium 130 L mmol/L
(135-145)
Chloride 92 L mmol/L
(98-107)
BUN 66 H mg/dl
(7-17)
Creatinine 3.2 H mg/dL
(0.6-1.0)
Calcium 7.4 L mg/dl
(8.4-10.2)
Total Bilirubin 2.0 H mg/dl
(0.2-1.3)
AST 42 H U/L
(14-36)
Total Protein 4.6 L g/dl
(6.3-8.2)
Albumin 2.4 L g/dl
(3.5-5.0)
Ur Occult Blood Reflex 4+ A
(Negative)
Leukocyte Esterase Rfl 3+ A
(Negative)
Urine RBC 26-30 A /HPF
(0-2)
Urine WBC (Reflex) >100 A /HPF
(0-5)
Urine Bacteria (Reflex) Many A
(Negative)
Urine Albumin (Reflex) 3+ A
(Neg - Trace)
10/25/24 23:35
10/25/24 23:35
Vital Signs
Initial and Last Documented VS:
Initial Vital Signs
Temp Pulse Resp BP Pulse Ox
97.0 F 86 22 92/57 98
10/25/24 23:15 10/25/24 23:15 10/25/24 23:15 10/25/24 23:15 10/25/24 23:15
Last Documented Vital Signs
Temp Pulse Resp BP Pulse Ox
98.0 F 114 20 100/69 92
10/26/24 00:54 10/26/24 00:54 10/26/24 00:54 10/26/24 00:54 10/26/24 00:54
MDM/Problems Addressed
MDM/Problems Addressed:
79-year-old female with history of A-fib on Eliquis, CHF, EDELMIRA, MAZARIEGOS cirrhosis presenting to the emergency department from nursing facility with elevated creatinine, 3.20 from facility. Vital signs on arrival are significant for mildly low blood
pressure.
On exam patient is resting comfortably, no acute distress or discomfort. Patient arrives with paperwork for chest creatinine of 3.2 from today, had previously been 1.7. On recent hospital admission, did recently have acute kidney injury. Suspect
possibly from acute urinary retention, had to have a Gutiérrez placed today. Patient with known history of CHF, so holding IV fluids, diffuse anasarca. Will repeat laboratory analysis and obtain urinalysis. Patient notes cough for the past several
weeks. Will also obtain chest x-ray imaging
01:00 -creatinine is elevated at 3.2. Urine without sign of infection. Chest x-ray appears unchanged from prior. Plan for admission for continued trending of her creatinine and nephrology consultation
*Critical Care Note
Total Time (30-74mins, 75-104mins- exclusive of procedures): Not Applicable
ED Attending Note
-
Portions of this chart may have been created with voice recognition software.� Occasional wrong word or��sound alike� substitutions may have occurred due to the inherent limitations of voice recognition software.
Discharge Plan
Departure
Prescriptions:
No Action
liothyronine 5 MCG tablet
5 mcg PO DAILY
Xifaxan 550 MG tablet
550 mg PO BID
prednisone 5 mg tablet
5 mg PO DAILY
levothyroxine 75 mcg Tablet
75 mcg PO DAILY
alendronate 70 mg Tablet
70 mg PO MO
bisoprolol fumarate 5 mg Tablet
10 mg PO DAILY
diltiazem HCl [Cartia XT] 120 mg Capsule,Extended Release 24hr
120 mg PO DAILY
Eliquis 2.5 mg Tablet
5 mg PO BID
midodrine 10 mg Tablet
10 mg PO TID
Saccharomyces boulardii 250 mg Capsule
250 mg PO BID
duloxetine 30 mg Capsule, Delayed Rel Sprinkle
30 mg PO DAILY
lactulose 20 gram/30 mL solution
30 ml PO QID
bumetanide 1 mg Tablet
1 mg PO BID Qty: 60 0RF
oxycodone 5 mg Tablet
5 mg PO Q6H PRN (Reason: pain) Qty: 14 0RF
ciprofloxacin HCl 750 mg Tablet
500 mg PO BID Qty: 0 0RF
Referrals:
Charmaine Damian CRNP [Family Provider] -
Interventions
Interventions:
*Risk Screen - Suicide Last Done: 10/25/24 23:04
*General Assessment Last Done: 10/25/24 23:04
*Neglect/Abuse Screening Last Done: 10/25/24 23:04
ED- Fall Risk Assessment Last Done: 10/25/24 23:04
*ED COVID-19 Vaccine History Last Done: 10/25/24 23:04
Discharge Date and Time
Print Language: [id number]
[2024-10-25 23:50] LABS: % Basophils 0.3 % (0-2); % Eosinophils 0.1 % (0-6); % Immature Granulocytes 2.1 % (0-0.5); % Lymphocytes 7.5 % (20.5-51.1); % Monocytes 8.7 % (1.7-9.3); % Neutrophils 81.3 % (42.2-75.2); Absolute Immature Granulocytes 0.2 10^3/uL (0-0.05); Absolute Lymphocytes 0.9 10^3/uL (1.2-3.4); Absolute Neutrophils 9.5 10^3/uL (1.4-6.5); Hematocrit 34.9 % (37.0-47.0); Hemoglobin 11.6 g/dL (12.0-16.0); Mean Corp Hgb Conc. 33.2 g/dL (33.0-37.0); Mean Corpuscular Hgb 30.2 pg (27.0-31.0); Mean Corpuscular Volume 90.9 fL (81.0-99.0); Mean Platelet Volume 9.7 fL (7.4-10.4); Nucleated Red Blood Cells % 0.3 %; Platelet Count 170 10^3/uL (130-400); Red Blood Cell Count 3.84 10^6/uL (4.20-5.40); Red Cell Dist. Width 19.3 % (11.5-14.5); White Blood Cell Count 11.7 10^3/uL (4.8-10.8)
[2024-10-26] VITALS (16 sets, daily range): BP systolic 86–144; BP diastolic 52–119; BMI 38.1
[2024-10-26 00:05] LABS: ALT (SGPT) 21 U/L (0-35); AST (SGOT) 42 U/L (14-36); Albumin 2.4 g/dl (3.5-5.0); Alkaline Phosphatase 106 U/L (38-126); Blood Urea Nitrogen 66 mg/dl (7-17); Calcium 7.4 mg/dl (8.4-10.2); Carbon Dioxide 24 mmol/L (22-30); Chloride 92 mmol/L (98-107); Estimated Creatinine Clearance 16 ml/min; Glucose 92 mg/dl (70-99); Potassium 4.1 mmol/L (3.5-5.1); Sodium 130 mmol/L (135-145); Total Protein 4.6 g/dl (6.3-8.2); eGFR 14.37
[2024-10-26 00:19] LABS: Urine Albumin 3+ (Neg - Trace); Urine Bilirubin Negative (Negative); Urine Glucose Negative (Negative); Urine Ketone Negative (Negative); Urine Leukocyte 3+ (Negative); Urine Nitrite Negative (Negative); Urine Occult Blood 4+ (Negative); Urine Urobilinogen Negative (Neg - 1+)
[2024-10-26 00:20] LABS: Urine Character Slightly Cloudy (Clear); Urine Color Yellow
[2024-10-26 00:25] LABS: Urine Squamous Cell 0-2 /LPF (Few)
[2024-10-26 00:26] LABS: Urine Bacteria Many (Negative); Urine Red Blood Cell 26-30 /HPF (0-2); Urine White Cell >100 /HPF (0-5)
--- NOTE | 2024-10-26 03:15 | HPS.HSE ---
Family Physician
-
Family Physician: JW Van
Chief Complaint
-
Elevated creatinine/SANTOSH
History of Present Illness
This is a 79-year-old female with past medical history significant for proximal atrial fibrillation, nonalcoholic steatohepatitis with cirrhosis, history of hepatic encephalopathy, essential hypertension, CHF and hypothyroid who presents to the
emergency department after outpatient blood drawl revealed elevated creatinine to 3.2 from a baseline of around 1.7.
Patient self was not having any other symptoms. She reports cough and congestion which has been going on for several weeks and is unchanged. She denies any worsening shortness of breath dyspnea on exertion fevers chills. She has chronic nausea
without vomiting. She denies any constipation, vomiting or diarrhea.
Family reports that lower extremity swelling is essentially unchanged and slightly improved compared to prior. She was not placed on any new medications.
He was last admitted for UTI with rule out of sepsis. At the time she was treated transiently with Levaquin and then subsequently continued on suppressive ciprofloxacin for her knee infectious arthritis. She suffered urinary retention and had a
urinary cath placed. According to family members she has had urinary catheter up until yesterday when she had a voiding trial. She failed a voiding trial as she could not urinate 8 hours after removal of catheter. Catheter was reinserted 8 hours
after removal. In that time the patient denied having any new urinary symptoms such as dysuria flank pain, fevers or chills. As stated she has no exposures to NSAIDs and contrast or order for antibiotics beside the ciprofloxacin.
In the emergency department today she was afebrile, blood pressure was 100/70 with a pulse of 114. She was satting 92% on room air. CBC was unremarkable. Chemistries notable for creatinine of 3.2 which is up from 1.5 from her last discharge.
Chest x-ray shows with opacity of the left lung which is unchanged from prior and consistent with likely since artifact versus retrocardiac opacity. UA again is positive similar to prior in the setting of chronic indwelling catheter.
Medical History
Past Medical History
Past Medical History: Reports Arrhythmia (Proximal atrial fibrillation), GERD, HTN, Renal Failure (CKD 4) and Other (Morbid obesity, Mazariegos cirrhosis,)
Additional Past Medical History:
Obstructive sleep apnea, not on CPAP
History of CVA
Past Surgical History: Reports Orthopedic
Social History
Tobacco: Non-smoker
Alcohol: None
Drug: None
Personal: Single
Living: With Family
Family History
Family History: Not pertinent
Allergies / Home Medications
Allergies reflects when Allergies were last updated in [facility].
Home Medications with original date entered in [facility]
Allergy/Medication List:
Allergies
Allergy/AdvReac Type Severity Reaction Status Date / Time
amlodipine Allergy Swelling Verified 05/01/24 21:36
meropenem Allergy tremors Verified 05/01/24 21:36
Penicillins Allergy Hives Verified 02/28/24 19:34
Home Medications
liothyronine 5 mcg tablet 5 mcg PO DAILY Thyroid 10/17/19
rifaximin 550 mg tablet (Xifaxan) 550 mg PO BID Liver Issues 10/17/19
prednisone 5 mg tablet 5 mg PO DAILY Anti-Inflammatory 12/14/23
levothyroxine 75 mcg tablet 75 mcg PO DAILY Thyroid 02/29/24
alendronate 70 mg tablet 70 mg PO MO osteoporosis 05/01/24
apixaban 2.5 mg tablet (Eliquis) 5 mg PO BID Blood Clot Prevention/Tx 05/01/24
bisoprolol fumarate 5 mg tablet 10 mg PO DAILY Blood Pressure 05/01/24
diltiazem HCl 120 mg capsule,extended release 24 hr (Cartia XT) 120 mg PO DAILY Arrhythmia 05/01/24
Saccharomyces boulardii 250 mg capsule 250 mg PO BID 10/06/24
duloxetine 30 mg capsule,delayed release sprinkle 30 mg PO DAILY 10/06/24
lactulose 20 gram/30 mL oral solution 30 ml PO QID 10/06/24
midodrine 10 mg tablet 10 mg PO TID 10/06/24
bumetanide 1 mg tablet 1 mg PO BID #60 tabs 10/12/24
oxycodone 5 mg tablet 5 mg PO Q6H PRN pain #14 tabs 10/12/24
ciprofloxacin HCl 750 mg tablet 500 mg (0.6667 x 750 mg) PO BID #0 tabs 10/16/24
Review of Systems
-
History Source: Patient and Family
Constitutional: Reports No Symptoms
EENT: Reports No Symptoms
Respiratory: Reports Cough
Cardiac: Reports No Symptoms
Abdomen/GI: Reports No Symptoms
: Reports Gutiérrez
Musculoskeletal: Reports Edema
Skin: Reports No Symptoms
Neurological: Reports No Symptoms
Endocrine: Reports No Symptoms
Hematologic/Lymphatic: Reports No Symptoms
Psych: Reports No Symptoms
Physical Exam
Vital Signs
Vital Signs
Temp Pulse Resp BP Pulse Ox
98.0 F 114 20 100/69 92
10/26/24 00:54 10/26/24 00:54 10/26/24 00:54 10/26/24 00:54 10/26/24 00:54
Physical Exam
General: No Apparent Distress, Appears Chronically Ill and Morbidly Obese
HEENT: NormoCephalic, Anicteric, Moist mucous membranes, Atraumatic and PERRLA
Respiratory: Clear
Cardiac: S1/S2, Regular Rhythm and Tachycardia
Breast: Deferred by me
GI: Soft, Non Tender and No Hepatosplenomegaly
Rectal: Deferred by Provider
Genito-urinary: Clear Urine and Gutiérrez
Musculoskeletal: No Clubbing, No Cyanosis, Edema, Left Lower Extremity and Edema, Right Lower Extremity
Skin: Warm
Neuro: AO x 3 and Nonfocal/grossly intact
Hematologic/Lymphatic: No Lymphadenopathy
Psych: Calm
Laboratory Results
-
10/25/24 23:35
10/25/24 23:35
Laboratory Results
Total Bilirubin 2.0 mg/dl (0.2-1.3) H 10/25/24 23:35
AST 42 U/L (14-36) H 10/25/24 23:35
ALT 21 U/L (0-35) 10/25/24 23:35
Alkaline Phosphatase 106 U/L (38-126) 10/25/24 23:35
Data Reviewed
-
Diagnostic Radiology: Image Personally Visualized and interpreted
Lab Data: Labs Reviewed by me
Old Records: Reviewed
Impression/Plan
-
IMPRESSION:
79 y.o female with multiple commorbidities here with SANTOSH. Cr 3.2, up from 1.6. Otherwise appears stable with mild non-related symptoms.
PLAN:
SANTOSH - etiology unclear, initially thought to be due to urinary retention but history from family indicated that the catheter was still in place when the blood work was obtained on 10/25 am, with a voiding trial afterwards that failed and catheter
re-inserted. No obvious insults in terms of contrast or medications. No signs of acute infection/sepsis. She has edema and is normotensive appearing at least euvolemic to hypervolemic. No recent h/o ascites or evidence of acute decompensation
with her MAZARIEGOS cirrhosis so unlikely hepatorenal.
- admit to med/surg
- CT abd/pelvis to evaluate ascites, ureteral obstruction/retroperitoneal fibrosis
- check urine Na/Cr and sediments
- hold bumex and spironolactone for now
- given volume status, will not give IV fluids pending renal involvement unless FENa pre-renal, then will give fluids+albumin
- avoid nephrotoxins and renal dose medications
- nephrology consult
Urinalysis - Positive u/a. No obvious symptoms and h/o indwelling catheter. She has severe allergies to PCN (hypersensitivity), cephalosporin and Meropenem (neurological). Prior Klebsiella/E.Coli are resistant to all but meropenem and zosyn.
Suspect colonization.
- urine cultures for now
- consider aztreonam if febrile
- ID consultation
Cough - Wet sounding cough, no production of sputum on exam. No oxygen requirement. Xray is equivocal
- CT chest, procalctionin
- guaifenesin and ipratropium nebs for now
pAFIB
- continue eliquis
- continue bisoprolol
MAZARIEGOS Cirrhosis - no evidence of acute decompensation
- check CT a/p for ascites
- continue lactulose/rifaximin for now
- holding bumex/spironolactone
- continue prednisone 5
- midodrine 10 tid
DVT PPX - on eliquis
Code status - DNR
[2024-10-26 06:00] LABS: Hematocrit 35.2 % (37.0-47.0); Hemoglobin 11.5 g/dL (12.0-16.0); Mean Corp Hgb Conc. 32.7 g/dL (33.0-37.0); Mean Corpuscular Hgb 29.9 pg (27.0-31.0); Mean Corpuscular Volume 91.4 fL (81.0-99.0); Mean Platelet Volume 9.8 fL (7.4-10.4); Platelet Count 172 10^3/uL (130-400); Red Blood Cell Count 3.85 10^6/uL (4.20-5.40); Red Cell Dist. Width 19.5 % (11.5-14.5); White Blood Cell Count 10.8 10^3/uL (4.8-10.8)
[2024-10-26 06:08] LABS: Urine Protein 41 mg/dl (0-12); Urine Sodium 11 mmol/L (30-90)
[2024-10-26] MEDS: SYNTHROID 75 MCG PO (06:19)
[2024-10-26 06:39] LABS: Procalcitonin 0.17 ng/ml (0.0-0.25)
[2024-10-26 07:42] LABS: Blood Urea Nitrogen 68 mg/dl (7-17); Calcium 7.4 mg/dl (8.4-10.2); Carbon Dioxide 28 mmol/L (22-30); Chloride 93 mmol/L (98-107); Estimated Creatinine Clearance 16 ml/min; Glucose 60 mg/dl (70-99); Potassium 3.8 mmol/L (3.5-5.1); Sodium 133 mmol/L (135-145); eGFR 14.93
[2024-10-26] MEDS: ATROVENT NEBULES 0.5 MG INH ×4 (08:19→21:36)
--- NOTE | 2024-10-26 09:22 | W.CON.NEPH ---
Consultation
-
Date/Time Consultation Requested: 10/26/24 0450
Date/Time Consultation Performed: 10/26/24 0950
Requesting Provider: Gary Dash
Performing Provider: Sandra Lama
Reason for Consultation: Santosh with CKD
Medical History
-
Chief Complaint: Acute kidney injury
History of Present Illness:
79-year-old female with past medical history significant for proximal atrial fibrillation on Eliquis, nonalcoholic steatohepatitis with cirrhosis, history of hepatic encephalopathy on Xifaxan, Lactulose, chr suppressive abx for knee infection on
Cipro, essential hypertension on Bisoprolol, cardizem, hypotension on midodrine, CHF on bumex,CKD [id number] baseline cr 1.5 adrenal insufficiency Dx April 2024 on chronic prednisone 10 mg daily, hypothyroid who presents to the emergency department
after outpatient blood draw revealed elevated creatinine to 3.2 from a baseline of around 1.5-1.7.
She had multiple admissions over last few months and mainly at [facility] in Aug and received short HD for SANTOSH and cr jennifer last hospitalization at for sepsis, UTI, U retention -vargas placed and bumex increased dose in Sep, cr was 1.5 at d/c which was
her baseline.
Pt is not the best historian most of the history obtained through chart. She reports cough and congestion which has been going on for several weeks and is unchanged. She denies any worsening shortness of breath dyspnea on exertion fevers chills.
She has chronic nausea without vomiting. She denies any constipation, vomiting or diarrhea.
Reportedly she failed voiding trial at [place] and vargas was replaced [employer]. Denies fevers or chills. As stated she has no exposures to NSAIDs and contrast or order for antibiotics beside the ciprofloxacin.
In ER labs noted cr high at 3.2 and nephrology consulted for eval.
Chest x-ray shows with opacity of the left lung which is unchanged from prior and consistent with likely since artifact versus retrocardiac opacity.
Past Medical History
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
UTI with Klebsiella oxytoca August 2024 [facility]
SANTOSH/ARF secondary to cefepime/meropenem had emergent dialysis 3-4 episodes August 2024 [facility]
CKD 4 (2.4) at discharge from last hospitalization
A-fib paroxysmal on dialysis
Chronic diastolic CHF
HTN
HLD
Adrenal insufficiency, Hx adrenal crisis 2013
Hypothyroidism
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
GERD
Depression
UTIs
Hepatic encephalopathy 04/2024
MAZARIEGOS cirrhosis
Class II obesity
Nonmobile status stands to transfer since August 2024
Osteoporosis
Chronic L1 compression fracture on chronic as needed oral opiates
Tonsillectomy
Status post left knee washout 09/15/2024 [facility]
Prosthetic left knee originally placed by Dr. Annelise Carcamo 02/05/2015 [facility]
Prosthetic right knee done by same physician above 1 02/05/2015
Social History
Tobacco: Non-Smoker
Alcohol: Occasional
Personal: Single
Living: Fdc
Family History
no CKD
Family History: Not Pertinent
Allergies / Home Medications
Allergy/AdvReac Type Severity Reaction Status Date / Time
amlodipine Allergy Swelling Verified 05/01/24 21:36
meropenem Allergy tremors Verified 05/01/24 21:36
Penicillins Allergy Hives Verified 02/28/24 19:34
�Medication �Instructions �Recorded �Confirmed �Type
liothyronine 5 mcg tablet 5 mcg PO DAILY Thyroid 10/17/19 10/26/24 History
rifaximin 550 mg tablet (Xifaxan) 550 mg PO BID Liver Issues 10/17/19 10/26/24 History
prednisone 5 mg tablet 10 mg PO DAILY Anti-Inflammatory 12/14/23 10/26/24 History
levothyroxine 75 mcg tablet 75 mcg PO DAILY Thyroid 02/29/24 10/26/24 History
apixaban 2.5 mg tablet (Eliquis) 5 mg PO BID Blood Clot 05/01/24 10/26/24 History
Prevention/Tx
bisoprolol fumarate 5 mg tablet 10 mg PO DAILY Blood Pressure 05/01/24 10/26/24 History
diltiazem HCl 120 mg 120 mg PO DAILY Arrhythmia 05/01/24 10/26/24 History
capsule,extended release 24 hr
(Cartia XT)
Saccharomyces boulardii 250 mg 250 mg PO BID 10/06/24 10/26/24 History
capsule
duloxetine 30 mg capsule,delayed 30 mg PO BID 10/06/24 10/26/24 History
release sprinkle
midodrine 10 mg tablet 10 mg PO TID 10/06/24 10/26/24 History
bumetanide 1 mg tablet 1 mg PO BID #60 tabs 10/12/24 10/26/24 Rx
ciprofloxacin HCl 750 mg tablet 500 mg (0.6667 x 750 mg) PO BID #0 10/16/24 10/26/24 Rx
tabs
acetaminophen 325 mg tablet 650 mg PO Q6HPRN PRN mild pain 10/26/24 10/26/24 History
(Tylenol)
alendronate 70 mg tablet (Fosamax) 70 mg PO MO 10/26/24 10/26/24 History
bisacodyl 10 mg rectal suppository 10 mg NM DAILYPRN PRN if no bm 10/26/24 10/26/24 History
(Dulcolax (bisacodyl)) aftr mom
lactulose 10 gram/15 mL oral 20 g PO QID 10/26/24 10/26/24 History
solution
levalbuterol HCl 0.63 mg/3 mL 0.63 mg inhalation R QID 10/26/24 10/26/24 History
solution for nebulization
magnesium hydroxide 400 mg/5 mL 2,400 mg PO DAILYPRN PRN if no bm 10/26/24 10/26/24 History
oral suspension (Milk of Magnesia) by 9 shifts
ondansetron HCl 4 mg tablet 4 mg PO Q6HPRN PRN nausea 10/26/24 10/26/24 History
oxycodone 5 mg tablet 5 mg PO Q6HPRN PRN severe pain 10/26/24 10/26/24 History
sodium phosphates 19 gram-7 118 ml NM DAILYPRN PRN if no bm 10/26/24 10/26/24 History
gram/118 mL enema (Fleet Enema) aftr dulcolax
Review of Systems
-
All complete 12 point ROS have been inquired and found negative other than stated in HPI
Physical Exam
Vital Signs
Vital Signs
Temp Pulse Resp BP Pulse Ox
97.8 F 104 20 144/89 97
10/26/24 09:01 10/26/24 09:00 10/26/24 09:00 10/26/24 08:00 10/26/24 09:00
Lab Results
WBC 10.8 10^3/uL (4.8-10.8) 10/26/24 05:36
RBC 3.85 10^6/uL (4.20-5.40) L 10/26/24 05:36
Hgb 11.5 g/dL (12.0-16.0) L 10/26/24 05:36
Hct 35.2 % (37.0-47.0) L 10/26/24 05:36
Plt Count 172 10^3/uL (130-400) 10/26/24 05:36
Sodium 133 mmol/L (135-145) L 10/26/24 07:13
Potassium 3.8 mmol/L (3.5-5.1) 10/26/24 07:13
Chloride 93 mmol/L (98-107) L 10/26/24 07:13
Carbon Dioxide 28 mmol/L (22-30) 10/26/24 07:13
BUN 68 mg/dl (7-17) H 10/26/24 07:13
Creatinine 3.1 mg/dL (0.6-1.0) H 10/26/24 07:13
eGFR 14.93 10/26/24 07:13
Glucose 60 mg/dl (70-99) L 10/26/24 07:13
Calcium 7.4 mg/dl (8.4-10.2) L 10/26/24 07:13
Albumin 2.4 g/dl (3.5-5.0) L 10/25/24 23:35
CXR:
IMPRESSION:
Low lung volumes.
No suspected pneumonia.
Physical Exam
General: Awake, Alert, Oriented, AOx3, No Distress and Nontoxic
HEENT: EOMI, Anicteric and Facial Symmetry
Respiratory: Normal Excursion, Nonlabored Respirations and Other (decreased BS)
Cardiac: S1/S2 and Regular Rate/Rhythm
Abdomen: Soft, Nontender and Nondistended
Musculoskeletal: Edema (3+)
Skin: Other (erythema in LE likely chronic, bandage intact)
Neuro: Nonfocal/Grossly Intact
Psych: Mood/afflect pleasant, Insight/judgement good and Appropriate
Data Reviewed
-
Radiology: Report Reviewed by me and Discussed with Patient
Labs: Labs Reviewed by me and Discussed with Patient
Assessment/Plan
-
Impression:
SANTOSH
Cough
CKD [id number] cr 1.5
Hx of Adrenal insufficiency
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
Abdominal ascites/hypoalbuminemia
MAZARIEGOS cirrhosis
Paroxysmal atrial fibrillation
Chronic diastolic heart failure/history of hepatic encephalopathy
Hypothyroidism
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
SANTOSH/ARF secondary to cefepime/meropenem had emergent dialysis 3-4 episodes August 2024 [facility]
Chronic diastolic CHF
HTN, realtive hypotension on midodrine
HLD
Adrenal insufficiency, Hx adrenal crisis 2013
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
GERD
Depression
UTIs
Class II obesity
Nonmobile status stands to transfer since August 2024
Osteoporosis
Chronic L1 compression fracture on chronic as needed oral opiates
mild hyponatremia
Plan:
A/w SANTOSH-no clear etiology
vargas was replaced recently and UA concern of UTI
would hold bumex, U na low suggest prerenal vs hepatorenal physiology
await CT results , try albumin
Bp stable midodrine, cardizem and BB on hold
suspect that we may have to tolerate higher cr to maintain vol status
she is anasarca and all edema is not amenable for diuresis
suspect she at risk of HD in near future, no emergent need currently
mild hyponatremia-improving
dose meds renally
follow labs
avoid nephrotoxins
--- NOTE | 2024-10-26 09:42 | W.PN.HOSP.TC ---
Addendum entered and electronically signed by Oswaldo Haynes MD 10/26/24 16:22:
RN told me family has opted for Full Code.
Original Note:
Today's Communication/Plan
-
Nephrology eval. ID eval
Assessment / Plan
Assessment / Plan
Physical exam:
General: Acute on chronically ill
HEENT: Normocephalic, Atraumatic and Moist Mucous Membranes
Respiratory: Clear to Auscultation; Negative Wheezes, Rales or Rhonchi
Cardiac: Regular Rhythm and S1/S2
GI: Soft, Nontender and Nondistended
Musculoskeletal: No Clubbing, No Cyanosis. Bilateral lower extremity edema
Neuro: Awake, Alert and Oriented, no gross neurodeficit but generalized weakness
Psych: Calm
A/P:
SANTOSH - etiology unclear, initially thought to be due to urinary retention but history from family indicated that the catheter was still in place when the blood work was obtained on 10/25 am, with a voiding trial afterwards that failed and catheter
re-inserted. No obvious insults in terms of contrast or medications. No signs of acute infection/sepsis. She has edema and is normotensive appearing at least euvolemic to hypervolemic. No recent h/o ascites or evidence of acute decompensation
with her MAZARIEGOS cirrhosis so unlikely hepatorenal.
- admit to med/surg
- CT abd/pelvis to evaluate ascites, ureteral obstruction/retroperitoneal fibrosis
- check urine Na/Cr and sediments
- hold bumex and spironolactone for now
- given volume status, will not give IV fluids pending renal involvement unless FENa pre-renal, then will give fluids+albumin
- avoid nephrotoxins and renal dose medications
- nephrology consult
-Discussed with at bedside today
Urinalysis - Positive u/a. No obvious symptoms and h/o indwelling catheter. She has severe allergies to PCN (hypersensitivity), cephalosporin and Meropenem (neurological). Prior Klebsiella/E.Coli are resistant to all but meropenem and zosyn.
Suspect colonization.
- urine cultures for now
- consider aztreonam if febrile
- ID consultation
-ID recommended urology eval but urology discussed with ID but there is no need for consult.
Cough - Wet sounding cough, no production of sputum on exam. No oxygen requirement. Xray is equivocal
- CT chest, procalctionin
- ipratropium nebs for now
-Will start her on Mucinex
pAFIB
- continue eliquis
- continue bisoprolol
MAZARIEGOS Cirrhosis - no evidence of acute decompensation
- check CT a/p for ascites
- continue lactulose/rifaximin for now
- holding bumex/spironolactone
- continue prednisone 5
- midodrine 10 tid
DVT PPX - on eliquis
Code status - DNR
Anticipated Discharge: > 48 hours
Subjective/Interval History
-
Date of Service: October 26, 2024
Patient feels better overall. She does have some dry cough. Gutiérrez catheter in place. Afebrile
Objective Data
-
Labs:
Laboratory Results
10/25/24 10/26/24 10/26/24
23:35 05:36 07:13
WBC 11.7 H 10.8
Hgb 11.6 L 11.5 L
Hct 34.9 L 35.2 L
Plt Count 170 172
Sodium 130 L Cancelled 133 L
Potassium 4.1 Cancelled 3.8
Chloride 92 L Cancelled 93 L
Carbon Dioxide 24 Cancelled 28
BUN 66 H Cancelled 68 H
Creatinine 3.2 H Cancelled 3.1 H
Glucose 92 Cancelled 60 L
Calcium 7.4 L Cancelled 7.4 L
Total Bilirubin 2.0 H
AST 42 H
ALT 21
Alkaline Phosphatase 106
Vital Signs:
Vital Signs
Temp Pulse Resp BP Pulse Ox
97.8 F 104 20 144/89 97
10/26/24 09:01 10/26/24 09:00 10/26/24 09:00 10/26/24 08:00 10/26/24 09:00
[2024-10-26] MEDS: ProAmatine 10 MG PO ×3 (10:05→21:08)
[2024-10-26] MEDS: DELTASONE 5 MG PO (10:06)
[2024-10-26] MEDS: XIFAXAN 550 MG PO ×2 (10:06→21:08)
[2024-10-26] MEDS: CYMBALTA DELAYED RELEASE 30 MG PO ×2 (10:06→21:08)
[2024-10-26] MEDS: DUPHALAC/CHRONULAC 20 GRAMS PO ×3 (10:13→17:32)
[2024-10-26] MEDS: ROBITUSSIN DM 5 ML PO ×2 (10:13→13:48)
--- NOTE | 2024-10-26 13:40 | CON.ID ---
Addendum entered and electronically signed by Daylin Rhodes MD 10/26/24 14:47:
Left knee exam: No warmth or erythema, distal incision with small wound without drainage.
Original Note:
Consultation
-
Date/Time Consultation Requested: October 26, 2024 0450
Date/Time Consultation Performed: October 26, 2024 1340
Requesting Provider: Dr. Oswaldo Haynes
Performing Provider: Dr. Daylin Rhodes
Reason for Consultation: h/o ESBL, allergies to most abx
Chief Complaint / Past History
Chief Complaint
Worsening kidney function
History of Present Illness
79-year-old female with history of Ngo cirrhosis, hepatic encephalopathy, diastolic CHF, hepatic encephalopathy, recent Left PJI Pseudomonas s/p washout at [facility] 2023 on chronic suppression with cipro, recent hospitalization
10/06 to 10/16 due to acute on chronic hypotension, TME, urinary retention requiring vargas. At [facility] she failed voiding trial and vargas reinserted. Lab work noted be in SANTOSH. She came to ED early this am. She denies fever of chills. No flank pain. +
cough. No headache. + chronic rhinorrhea. Per daughter she is on cipro 500mg bid for the knee. No worsening knee pain.
Past History
Additional Past Medical History:
L knee PJI with Pseudomonas s/p washout at [facility] 09/15/24, on chronic suppression cipro
SANTOSH/ARF secondary to cefepime vs meropenem had emergent dialysis 3-4 episodes August 2024 [facility]
CKD stage IV
NGO cirrhosis with anasarca
Hx hepatic encephalopathy
P A-fib
Diastolic CHF
Hx pituitary cyst
EDELMIRA on CPAP (reportedly noncompliant)
Dyslipidemia
Hypothyroidism
GERD
Morbid obesity
L1 compression fracture
Orthostatic hypotension
HTN
ESBL in urine
Adrenal insufficiency
R TKR
Allergy History:
amlodipine Allergy (Verified 10/26/24 10:28)
Swelling
meropenem Allergy (Verified 10/26/24 10:28)
tremors
Penicillins Allergy (Verified 10/26/24 10:28)
Hives
Medications Reviewed: Yes
Current Antibiotics:
Xifaxan 550 mg p.o. twice daily
Social History
Tobacco: Non-Smoker
Alcohol: None
Drug: None
Personal:
Living: Retirement
Employment: Retired
Family History
Family History: Not Pertinent
Review of Systems
Review of Systems
General: Negative Fever, Chills or Change in Appetite
HEENT: Negative Headache or Pharyngitis
Cardiovascular: Edema
Respiratory: Cough; Negative Dyspnea
Gasteroenterology: Negative Nausea, Vomiting or Diarrhea
Genital / Urological: Negative Flank Pain
Neurological: Negative Headache or Dizziness
Vital Signs
Temp Pulse Resp BP Pulse Ox
97.8 F 95 18 117/90 94
10/26/24 09:01 10/26/24 12:20 10/26/24 12:20 10/26/24 10:05 10/26/24 09:30
Physical Exam
Physical Exam
Constitutional: No Acute Distress and Chronically Ill
Eyes: Sclera Anicteric
Cardiovascular: Regular Rate and S1/S2
Pulmonary: Clear
Gastrointestinal: Soft, Non Tender, Non Distended and Normal Bowel Sounds
Genito-Urinary: Vargas
Extremities: Edema (BLE 3+)
Neurological: AO x 3
Lab / Diagnostic Study Results
10/26/24 05:36
10/26/24 07:13
Abs Immat Gran (auto) 0.2 10^3/uL (0-0.05) H 10/25/24 23:35
Absolute Neuts (auto) 9.5 10^3/uL (1.4-6.5) H 10/25/24 23:35
Absolute Lymphs (auto) 0.9 10^3/uL (1.2-3.4) L 10/25/24 23:35
Absolute Monos (auto) 1.0 10^3/uL (0.1-0.6) H 10/25/24 23:35
Absolute Basos (auto) 0.0 10^3/uL (0-0.2) 10/25/24 23:35
Immature Gran % 2.1 % (0-0.5) H 10/25/24 23:35
Neutrophils % 81.3 % (42.2-75.2) H 10/25/24 23:35
Lymphocytes % 7.5 % (20.5-51.1) L 10/25/24 23:35
Monocytes % 8.7 % (1.7-9.3) 10/25/24 23:35
Eosinophils % 0.1 % (0-6) 10/25/24 23:35
Basophils % 0.3 % (0-2) 10/25/24 23:35
Procalcitonin 0.17 ng/ml (0.0-0.25) 10/26/24 05:36
Ur Squamous Epith Cells 0-2 /LPF (Few) 10/26/24 00:08
Microbiology Results
Micro:
10/26/24 00:08 Urine Culture - Pending
Urine
10/26/24 CT a/p: Ill-defined groundglass opacity in the right upper lobe which may be inflammatory/infectious. Moderate colonic stool burden and colonic diverticulosis. Large volume stool seen filling and distending the rectum, without intestinal
obstruction. Evaluation of soft tissues of the true pelvis markedly limited without intravenous and oral contrast and also as a result of beam hardening artifact from metal hardware in the left hip. Atrophic kidneys bilaterally without gross
findings to suggest collecting system dilatation. Virtually empty urinary bladder containing some bubbles of air, difficult to determine if there is a Vargas catheter within.
10/25/24 CXR: No suspected pneumonia.
Assessment / Plan
# Urinary retention with vargas
# Asymptomatic bacteruria
- Expect abnormal UA and bacteria colonization in urine with vargas
- Hx ESBL colonization
- Afebrile. No leukocytosis today
- No urinary sxs.
- PCN and meropenem allergies/intolerance.
- No need for abx
- Contact precaution
# Cough, head congestion
- CXR no PNA
-Procal <0.25
- Check COVID19 and Influenza
# Left knee PJI pseudomonas
-s/p washout at [facility] 09/15
- On chronic suppressive therapy cipro
- renally adjust cipro dose to 500mg daily, first dose tomorrow.,
- Follow-up with outside Ortho.
# SANTOSH on CKD
- Nephrology following
# Conditions [employer]
L knee PJI with Pseudomonas s/p washout at [facility] 09/15/24, on chronic suppression cipro
SANTOSH/ARF secondary to cefepime vs meropenem had emergent dialysis 3-4 episodes August 2024 [facility]
CKD stage IV
NGO cirrhosis with anasarca
Hx hepatic encephalopathy
P A-fib
Diastolic CHF
Hx pituitary cyst
EDELMIRA on CPAP (reportedly noncompliant)
Dyslipidemia
Hypothyroidism
GERD
Morbid obesity
L1 compression fracture
Orthostatic hypotension
HTN
ESBL in urine
Adrenal insufficiency
R TKR
Care Review
Plan reviewed with: Physician ()
[2024-10-26] MEDS: FLEXBUMIN 100 IV ×2 (13:48→21:08)
[2024-10-26] MEDS: CIPRO 500 MG PO (14:16)
--- NOTE | 2024-10-26 14:51 | CONS.URO ---
Medical History
History of Present Illness
Recently inpatient at for ~ 10 days during which she suffered urinary retention and had a urinary cath placed. According to family members she has had urinary catheter up until yesterday when she had a voiding trial. She failed a voiding trial
as she could not urinate 8 hours after removal of catheter. Catheter was reinserted 8 hours after removal.
Serum creatinine was noted to have risen, prompting return to ED; she is to be admitted to hospitalists' service.
Past Medical History
Past Medical History: Other (atrial fibrillation, GERD, HTN, Renal Failure (CKD 4), Morbid obesity, Ngo cirrhosis, Obstructive sleep apnea, not on CPAP, CVA, Septic prosthetic left knee with Pseudomonas August 2024 [place] UTI with Klebsiella
oxytoca August 2024 [place] SANTOSH/ARF secondary to cefepime/meropenem had elisa)
Past Surgical History: Orthopedic
Allergies/Home Medications
Allergies
Allergy/AdvReac Type Severity Reaction Status Date / Time
amlodipine Allergy Swelling Verified 10/26/24 10:28
cefepime Allergy Mental Verified 10/26/24 14:22
status
change
meropenem Allergy tremors Verified 10/26/24 10:28
Penicillins Allergy Hives Verified 10/26/24 10:28
Home Medications
�Medication �Instructions �Recorded �Confirmed �Type
liothyronine 5 mcg tablet 5 mcg PO DAILY Thyroid 10/17/19 10/26/24 History
rifaximin 550 mg tablet (Xifaxan) 550 mg PO BID Liver Issues 10/17/19 10/26/24 History
prednisone 5 mg tablet 10 mg PO DAILY Anti-Inflammatory 12/14/23 10/26/24 History
levothyroxine 75 mcg tablet 75 mcg PO DAILY Thyroid 02/29/24 10/26/24 History
apixaban 2.5 mg tablet (Eliquis) 5 mg PO BID Blood Clot 05/01/24 10/26/24 History
Prevention/Tx
bisoprolol fumarate 5 mg tablet 10 mg PO DAILY Blood Pressure 05/01/24 10/26/24 History
diltiazem HCl 120 mg 120 mg PO DAILY Arrhythmia 05/01/24 10/26/24 History
capsule,extended release 24 hr
(Cartia XT)
Saccharomyces boulardii 250 mg 250 mg PO BID 10/06/24 10/26/24 History
capsule
duloxetine 30 mg capsule,delayed 30 mg PO BID 10/06/24 10/26/24 History
release sprinkle
midodrine 10 mg tablet 10 mg PO TID 10/06/24 10/26/24 History
bumetanide 1 mg tablet 1 mg PO BID #60 tabs 10/12/24 10/26/24 Rx
ciprofloxacin HCl 750 mg tablet 500 mg (0.6667 x 750 mg) PO BID #0 10/16/24 10/26/24 Rx
tabs
acetaminophen 325 mg tablet 650 mg PO Q6HPRN PRN mild pain 10/26/24 10/26/24 History
(Tylenol)
alendronate 70 mg tablet (Fosamax) 70 mg PO MO 10/26/24 10/26/24 History
bisacodyl 10 mg rectal suppository 10 mg MS DAILYPRN PRN if no bm 10/26/24 10/26/24 History
(Dulcolax (bisacodyl)) aftr mom
lactulose 10 gram/15 mL oral 20 g PO QID 10/26/24 10/26/24 History
solution
levalbuterol HCl 0.63 mg/3 mL 0.63 mg inhalation R QID 10/26/24 10/26/24 History
solution for nebulization
magnesium hydroxide 400 mg/5 mL 2,400 mg PO DAILYPRN PRN if no bm 10/26/24 10/26/24 History
oral suspension (Milk of Magnesia) by 9 shifts
ondansetron HCl 4 mg tablet 4 mg PO Q6HPRN PRN nausea 10/26/24 10/26/24 History
oxycodone 5 mg tablet 5 mg PO Q6HPRN PRN severe pain 10/26/24 10/26/24 History
sodium phosphates 19 gram-7 118 ml MS DAILYPRN PRN if no bm 10/26/24 10/26/24 History
gram/118 mL enema (Fleet Enema) aftr dulcolax
Physical Exam
Vital Signs
Vital Signs
Temp Pulse Resp BP Pulse Ox
97.8 F 95 18 117/90 94
10/26/24 09:01 10/26/24 12:20 10/26/24 12:20 10/26/24 10:05 10/26/24 09:30
Lab / Testing Results
Laboratory Results
10/26/24 05:36
10/26/24 07:13
Physical Exam
adult female sitting up in bed in ED
General: No Apparent Distress
Genito-urinary: Gutiérrez Catheter and Other
Neuro: Awake and Alert
Assessment / Plan
-
Chronic Urinary Retention
Keep Gutiérrez as pt is incapable of performing CIC
to f/u at [facility] for outpatient urodynamics
Data Reviewed
-
CT Scan: Image personally visualized and interpreted (atrophic kidneys; Gutiérrez in bladder; colonic )
[2024-10-26 15:20] LABS: COVID-19 Antigen Negative (Negative)
--- NOTE | 2024-10-26 15:53 | EDRN ---
Upon entering room, noted pt's lactulose containers sitting next to her meal tray with about 1/4 finished. This RN and pt's daughter encouraged pt to finish it. Pt's albumin not infusing - checked IV L ACF and the catheter is taped about retirement
out and is very positional. IV unable to be flushed easily - VAT called for new IV access. Pt denies pain, says she wears O2 at nighttime only but because of her cough and sob she has needed it all day. Pt denies pain. Pt has large skin tear R
forearm that she says was sustained by one of her aides prior to arrival. Dressing wet with reddish orange fluid. This RN removed dressing, cleaned wound and applied abx ointment, vaseline gauze, 5x9 pad and wrapped with dhiraj. Gutiérrez emptied -
300ml.
[2024-10-26] MEDS: MUCINEX 600 MG PO ×2 (16:13→21:08)
--- NOTE | 2024-10-26 16:20 | EDRN ---
Family and pt state pt is supposed to be a Full Code and it was supposed to be changed from DNR. TT to hospitalist regarding this.
--- NOTE | 2024-10-26 17:30 | EDRN ---
Report given to ROSA Ocasio
[2024-10-26] MEDS: DUPHALAC/CHRONULAC PO (22:01)
[2024-10-27] VITALS (18 sets, daily range): BP systolic 75–128; BP diastolic 47–84; PULSE 101; O2SAT 96–97; BMI 36.6
[2024-10-27] MEDS: SYNTHROID 75 MCG PO (05:25)
[2024-10-27] MEDS: CYTOMEL 5 MICROGRAM PO (05:25)
[2024-10-27] MEDS: FLEXBUMIN 100 IV (05:25)
[2024-10-27] MEDS: DUPHALAC/CHRONULAC 20 GRAMS PO ×2 (07:36→17:59)
[2024-10-27] MEDS: ProAmatine 10 MG PO ×3 (07:36→22:03)
[2024-10-27] MEDS: MUCINEX 600 MG PO ×2 (07:36→22:02)
[2024-10-27] MEDS: CIPRO 500 MG PO (07:39)
[2024-10-27] MEDS: ATROVENT NEBULES 0.5 MG INH ×4 (07:53→21:29)
--- NOTE | 2024-10-27 08:52 | W.PN.HOSP.TC ---
Addendum entered and electronically signed by Oswaldo Haynes MD 10/27/24 14:55:
Discussed with daughter over the phone today.
Addendum entered and electronically signed by Oswaldo Haynes MD 10/27/24 14:38:
Not heparin SQ since patient is on Eliquis.
Original Note:
Today's Communication/Plan
-
IV fluids. IV steroids. ID reeval. Cardiology eval.
Assessment / Plan
Assessment / Plan
Physical exam:
General: Acute on chronically ill
HEENT: Normocephalic, Atraumatic and Moist Mucous Membranes
Respiratory: Clear to Auscultation; Negative Wheezes, Rales or Rhonchi
Cardiac: Regular Rhythm and S1/S2
GI: Soft, Nontender and Nondistended
Musculoskeletal: No Clubbing, No Cyanosis. Bilateral lower extremity edema
Neuro: Awake, Alert and Oriented, no gross neurodeficit but generalized weakness
Psych: Calm
A/P:
Hypotension with shock:
Suspect adrenal insufficiency related but cannot rule out septic versus cardiogenic
Start stress doses of steroids
Midodrine
IV fluid 250 cc stat and reevaluate
Cardiac monitoring
Check blood cultures and lactic acid
Check cortisol level but unreliable since she is getting oral steroids
Cardiology consult-discussed with cardiology via [place] text today
Discussed with ID given her multiple allergies to antibiotics and probably will need some empiric antibiotics today but very challenging situation.
Transfer to IMU
Suspicion for multidrug-resistant catheter associated UTI:
Allergic to meropenem, cefepime, and penicillins
Discussed with ID as above
SANTOSH:
Nephrology on board
Nephrology has discussed with patient and family about poor prognosis but they would like to continue aggressive care at the moment
Avoid nephrotoxic
Reviewed nephrology and urology input
Continue to monitor renal function
Chronic diastolic CHF:
She does have peripheral edema but appears to have low intravascular volume depletion
Monitor volume status closely
Paroxysmal A-fib:
quality assurance monitor chassis
History of Ngo liver cirrhosis:
Monitor volume status and decompensation from liver function as well
Hypothyroidism:
Continue thyroid replacement
Chronic postop knee infection:
On suppressive antibiotic therapy with Cipro
Anemia:
Continue to monitor hemoglobin closely
No signs of active bleed
Hypokalemia:
Replete and trend
DVT prophylaxis:
SCDs
Add heparin SQ
CODE STATUS:
Full code
Total Critical Care Time__45___ minutes. I was immediately available to the patient and staff. I personally examined, reviewed labs, diagnostic images/reports, interpretations, treatment plans, discussed patient care with other providers and
family or caregivers (if patient is unable to make decisions), entered orders as appropriate and documented the medical record.
Anticipated Discharge: > 48 hours
Subjective/Interval History
-
Date of Service: October 27, 2024
Patient does not feel well overall. Hypotensive today. Afebrile.
Objective Data
-
Labs:
Laboratory Results
10/27/24
08:20
WBC Pending
Hgb Pending
Hct Pending
Plt Count Pending
Sodium Pending
Potassium Pending
Chloride Pending
Carbon Dioxide Pending
BUN Pending
Creatinine Pending
Glucose Pending
Calcium Pending
Vital Signs:
Vital Signs
Temp Pulse Resp BP Pulse Ox
97.8 F 104 20 90/78 97
10/27/24 07:26 10/27/24 07:57 10/27/24 07:57 10/27/24 07:36 10/27/24 07:57
I&O
10/26/24 10/27/24 10/28/24
06:59 06:59 06:59
Intake Total 480 / 480
Output Total 700 / 700
Balance -220 / -220
[2024-10-27 08:55] LABS: % Basophils 0.2 % (0-2); % Eosinophils 0.5 % (0-6); % Immature Granulocytes 1.6 % (0-0.5); % Lymphocytes 8.5 % (20.5-51.1); % Monocytes 11.2 % (1.7-9.3); Absolute Eosinophils 0.1 10^3/uL (0-0.7); Absolute Immature Granulocytes 0.2 10^3/uL (0-0.05); Absolute Lymphocytes 0.9 10^3/uL (1.2-3.4); Absolute Monocytes 1.1 10^3/uL (0.1-0.6); Hematocrit 29.3 % (37.0-47.0); Hemoglobin 9.4 g/dL (12.0-16.0); Mean Corp Hgb Conc. 32.1 g/dL (33.0-37.0); Mean Corpuscular Hgb 29.8 pg (27.0-31.0); Mean Platelet Volume 9.8 fL (7.4-10.4); Nucleated Red Blood Cells % 0.2 %; Platelet Count 125 10^3/uL (130-400); Red Blood Cell Count 3.15 10^6/uL (4.20-5.40); Red Cell Dist. Width 19.3 % (11.5-14.5); White Blood Cell Count 10.2 10^3/uL (4.8-10.8)
[2024-10-27 09:02] LABS: Blood Urea Nitrogen 68 mg/dl (7-17); Calcium 8.4 mg/dl (8.4-10.2); Carbon Dioxide 26 mmol/L (22-30); Chloride 96 mmol/L (98-107); Estimated Creatinine Clearance 19 ml/min; Glucose 62 mg/dl (70-99); Potassium 3.2 mmol/L (3.5-5.1); Sodium 136 mmol/L (135-145); eGFR 17.62
[2024-10-27] MEDS: DELTASONE 5 MG PO (09:07)
[2024-10-27] MEDS: CYMBALTA DELAYED RELEASE 30 MG PO ×2 (09:07→22:03)
[2024-10-27] MEDS: XIFAXAN 550 MG PO ×2 (09:07→22:03)
[2024-10-27] MEDS: DUPHALAC/CHRONULAC PO ×2 (11:37→21:33)
--- NOTE | 2024-10-27 11:58 | CM ---
CM reviewed chart- pt with recent admission from 10/06/24-10/16/24
Pt typically resides at home with her spouse in a split level home with OSTE, 3 steps up to main living area and stair glide then to sleeping level
Pt requires a 1 person assist with ambulation and personal care
Pt has a WW, WC, bed side commode, she also has home O2
Pt has hx with Beatriz VN
Pt is currently a ST rehab resident at [place]
Will likely need confirmation from SNF admissions regarding bed-hold status
Return SNF referral sent via [facility]
Pt will likely need auth for SNF return
PT/OT orders placed
Discharge Disposition- anticipate return to [facility] for continued ST rehab
--- NOTE | 2024-10-27 12:24 | W.PN.NEPH.PH ---
Today's Communication / Plan
-
follow labs
Assessment/Plan
-
Impression:
SANTOSH
Cough
CKD [id number] cr 1.5
Hx of Adrenal insufficiency
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
Abdominal ascites/hypoalbuminemia
MAZARIEGOS cirrhosis
Paroxysmal atrial fibrillation
Chronic diastolic heart failure/history of hepatic encephalopathy
Hypothyroidism
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
SANTOSH/ARF secondary to cefepime/meropenem had emergent dialysis 3-4 episodes August 2024 [facility]
Chronic diastolic CHF
HTN, realtive hypotension on midodrine
HLD
Adrenal insufficiency, Hx adrenal crisis 2013
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
GERD
Depression
UTIs
Class II obesity
Nonmobile status stands to transfer since August 2024
Osteoporosis
Chronic L1 compression fracture on chronic as needed oral opiates
mild hyponatremia
Plan:
A/w SANTOSH-no clear etiology
non oliguric with vargas was replaced recently and UA concern of UTI
would hold bumex, U na low suggest prerenal vs hepatorenal physiology
CT no hydro but atrophic bilat kidneys, cont 24hr albumin
Bp marginal still on midodrine, cardizem and BB on hold, check echo
suspect that we may have to tolerate higher cr to maintain vol status
she is anasarca and all edema is not amenable for diuresis
suspect she at risk of HD in near future however concern tolerability with low BPs, no emergent need currently
mild hyponatremia-improving
dose meds renally
follow labs
avoid nephrotoxins
d/w daughter on phone in detail and answered questions
d/w nursing
High risk encounter
-
-
Date of Service: October 27, 2024
CC / HPI / ROS
-
Chief Complaint:
SANTOSH, CKD
History of Present Illness:
cr down to 2.7, k low 3.2
Bp marginal
non oliguric with vargas
wt no change
Review of Systems:
no cp or sob at rest
no n/v
cough+
Labs
-
Labs:
WBC 10.2 10^3/uL (4.8-10.8) 10/27/24 08:20
RBC 3.15 10^6/uL (4.20-5.40) L 10/27/24 08:20
Hgb 9.4 g/dL (12.0-16.0) L 10/27/24 08:20
Hct 29.3 % (37.0-47.0) L 10/27/24 08:20
Plt Count 125 10^3/uL (130-400) L D 10/27/24 08:20
Sodium 136 mmol/L (135-145) 10/27/24 08:20
Potassium 3.2 mmol/L (3.5-5.1) L 10/27/24 08:20
Chloride 96 mmol/L (98-107) L 10/27/24 08:20
Carbon Dioxide 26 mmol/L (22-30) 10/27/24 08:20
BUN 68 mg/dl (7-17) H 10/27/24 08:20
Creatinine 2.7 mg/dL (0.6-1.0) H 10/27/24 08:20
eGFR 17.62 10/27/24 08:20
Glucose 62 mg/dl (70-99) L 10/27/24 08:20
Calcium 8.4 mg/dl (8.4-10.2) 10/27/24 08:20
Albumin 2.4 g/dl (3.5-5.0) L 10/25/24 23:35
Physical Exam
-
Vital Signs:
Vital Signs
Temp Pulse Resp BP Pulse Ox
97.8 F 105 15 90/78 98
10/27/24 07:26 10/27/24 11:25 10/27/24 11:25 10/27/24 07:36 10/27/24 11:25
Cardiovascular:: Regular rate and rhythm
Respiratory:: Bilateral: Coarse (mainly from upper airway)
Lung Excursion:: Normal
Abdomen:: Nontender and Soft
Extremity Edema:: +3: Bilateral:
Vargas Catheter: Yes
[2024-10-27] MEDS: SOLU-CORTEF 100 MG IV ×2 (14:01→17:10)
[2024-10-27] MEDS: ProAmatine 5 MG PO (14:03)
[2024-10-27] MEDS: KCL 40 MEQ PO (14:39)
[2024-10-27] MEDS: NSS 250 IV (14:39)
--- NOTE | 2024-10-27 14:55 | CON.CAR ---
Consultation
Consultation Request
Date/Time Consultation Requested: October 27, 2024
Date/Time Consultation Performed: October 27, 2024
Requesting Provider: Hospitalist
Performing Provider: Dr Toney Leggett
Reason for Consultation: hypotension, Shortness of breath, cough and congestion
Medical History
-
Chief Complaint: Shortness of breath, cough and congestion
History of Present Illness:
She has a complex past medical history which is outlined below. She has had several recent admissions both at [facility] and at [facility] over the past 2 months for UTI, urinary retention and possible sepsis as well as
acute on chronic kidney injury.
She has had rather chronic hypotension possibly related to her chronic adrenal insufficiency.
Cardiology has been consulted regarding her hypotension and her history of HFpEF and her history of atrial fibrillation
Past medical history:
Chronic hypotension
Possibly adrenal insufficiency related
Liver disease may also be contributing
Chronic HFpEF -NYHA class 3, ACC stage C
Paroxysmal Afib w/ RVR
Chronic Eliquis OAC
Obstructive sleep apnea, variable compliance with CPAP
Chronic adrenal insufficiency on chronic steroids
h/o pituitary cyst s/p removal 2013
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
History of hepatic encephalopathy
CKD stage 3B
Chronic anasarca/lymphedema
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
History of recurrent UTIs
HTN
Hypothyroidism
h/o statin intolerance
Lexiscan nuclear stress test 2021: small mild zied defect mid anterior wall that is fixed, defect did not meet quantitative criteria, normal global LV function
Echo 10/18/19: Definity study, EF 50-55%, trace MR, no TR:
Echo 10/2021: EF 65%, normal RV size and function
Allergies / Home Medications
Allergy/AdvReac Type Severity Reaction Status Date / Time
amlodipine Allergy Swelling Verified 10/26/24 10:28
cefepime Allergy Mental Verified 10/26/24 14:22
status
change
meropenem Allergy tremors Verified 10/26/24 10:28
Penicillins Allergy Hives Verified 10/26/24 10:28
�Medication �Instructions �Recorded �Confirmed �Type
liothyronine 5 mcg tablet 5 mcg PO DAILY Thyroid 10/17/19 10/26/24 History
rifaximin 550 mg tablet (Xifaxan) 550 mg PO BID Liver Issues 10/17/19 10/26/24 History
prednisone 5 mg tablet 10 mg PO DAILY Anti-Inflammatory 12/14/23 10/26/24 History
levothyroxine 75 mcg tablet 75 mcg PO DAILY Thyroid 02/29/24 10/26/24 History
apixaban 2.5 mg tablet (Eliquis) 5 mg PO BID Blood Clot 05/01/24 10/26/24 History
Prevention/Tx
bisoprolol fumarate 5 mg tablet 10 mg PO DAILY Blood Pressure 05/01/24 10/26/24 History
diltiazem HCl 120 mg 120 mg PO DAILY Arrhythmia 05/01/24 10/26/24 History
capsule,extended release 24 hr
(Cartia XT)
Saccharomyces boulardii 250 mg 250 mg PO BID 10/06/24 10/26/24 History
capsule
duloxetine 30 mg capsule,delayed 30 mg PO BID 10/06/24 10/26/24 History
release sprinkle
midodrine 10 mg tablet 10 mg PO TID 10/06/24 10/26/24 History
bumetanide 1 mg tablet 1 mg PO BID #60 tabs 10/12/24 10/26/24 Rx
ciprofloxacin HCl 750 mg tablet 500 mg (0.6667 x 750 mg) PO BID #0 10/16/24 10/26/24 Rx
tabs
acetaminophen 325 mg tablet 650 mg PO Q6HPRN PRN mild pain 10/26/24 10/26/24 History
(Tylenol)
alendronate 70 mg tablet (Fosamax) 70 mg PO MO 10/26/24 10/26/24 History
bisacodyl 10 mg rectal suppository 10 mg HI DAILYPRN PRN if no bm 10/26/24 10/26/24 History
(Dulcolax (bisacodyl)) aftr mom
lactulose 10 gram/15 mL oral 20 g PO QID 10/26/24 10/26/24 History
solution
levalbuterol HCl 0.63 mg/3 mL 0.63 mg inhalation R QID 10/26/24 10/26/24 History
solution for nebulization
magnesium hydroxide 400 mg/5 mL 2,400 mg PO DAILYPRN PRN if no bm 10/26/24 10/26/24 History
oral suspension (Milk of Magnesia) by 9 shifts
ondansetron HCl 4 mg tablet 4 mg PO Q6HPRN PRN nausea 10/26/24 10/26/24 History
oxycodone 5 mg tablet 5 mg PO Q6HPRN PRN severe pain 10/26/24 10/26/24 History
sodium phosphates 19 gram-7 118 ml HI DAILYPRN PRN if no bm 10/26/24 10/26/24 History
gram/118 mL enema (Fleet Enema) aftr dulcolax
Review of Systems
-
History Source: Patient
All other systems: Negative unless noted
Constitutional: Fatigue
EENT: No Symptoms
Respiratory: Cough
Cardiac: No Symptoms
Abdomen/GI: No Symptoms
: No Symptoms
Musculoskeletal: No Symptoms
Neurological: Dizzy
Hematologic/Lymphatic: No Symptoms
Physical Exam
Vital Signs
Temp Pulse Resp BP Pulse Ox
98.2 F 104 15 101/69 98
10/27/24 14:14 10/27/24 14:03 10/27/24 11:25 10/27/24 14:03 10/27/24 11:25
Lab Results
10/27/24 08:20
10/27/24 08:20
Physical Exam
General: Well Developed, Well Nourished and Other (Elderly woman laying in bed, no acute distress.)
HEENT: Normocephalic, Anicteric and Moist Mucous Membranes
Respiratory: Other (Poor inspiratory effort with decreased breath sounds bilaterally but no wheezes rales or rhonchi bilaterally)
Cardiac: S1/S2 (Normal S1 1 and S2, no S3 no S4.), Irregular Rhythm and Murmur (There is 1/6 basal systolic ejection murmur and 1/6 apical holosystolic murmur)
Breast: Deferred by me
GI: Soft, Non Tender and Non Distended
Rectal: Deferred by Provider
Musculoskeletal: No Clubbing, No Cyanosis and Edema (There is +4 pitting edema of the lower extremities with brawny skin changes suggestive of chronic edema)
Skin: Warm and Dry
Neuro: Awake, Alert, Oriented and AO x 3
Psych: Calm
Impression / Plan
-
Impression:
Chronic hypotension
Possibly adrenal insufficiency related
Liver disease may also be contributing
Chronic HFpEF -NYHA class 3, ACC stage C
Paroxysmal Afib w/ RVR
Chronic Eliquis OAC
Obstructive sleep apnea, variable compliance with CPAP
Chronic adrenal insufficiency on chronic steroids
h/o pituitary cyst s/p removal 2013
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
History of hepatic encephalopathy
SANTOSH with background CKD stage 3B
Chronic anasarca/lymphedema/hypoalbuminemia
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
History of recurrent UTIs
HTN
Hypothyroidism
h/o statin intolerance
CXR 10/25/24: Normal pulmonary vascularity.
No pleural effusion, no pneumonia. Low lung volumes.
CT of the chest abdomen and pelvis10/26/24:
ill-defined groundglass opacity in the right upper lobe and some bibasilar subsegmental atelectasis and/or scarring
ECHO 02/29/24: This was a technically difficult study. The rhythm is AF, mildly reduced LVEF, global, EF 50%. Normal RV size and function. Mildly dilated right and left atrium. No significant valvular disease
Lexiscan nuclear stress test 2021: small mild zied defect mid anterior wall that is fixed, defect did not meet quantitative criteria, normal global LV function
Recommendations:
This is a complex case.
Her hypotension is likely multifactorial with possible etiologies contributing to hypotension being chronic adrenal insufficiency, chronic liver disease, hypoalbuminemia with intravascular volume depletion.
Overall, while she clearly has extravascular volume overload I do not think she has intravascular volume overload. On physical exam there is no significant JVD. Imaging of the chest which includes chest x-ray as well as CT scan finds no evidence
of interstitial pulmonary edema. Overall I do not think she is an acute decompensated congestive heart failure. I do not think congestive heart failure is playing a role in her hypotension.
I would not diurese her at present.
Atrial fibrillation is present with ventricular rates that are overall well-controlled and I do not think atrial fibrillation is playing a significant role in her hypotension.
Would continue to treat hypotension as you are doing, agree with midodrine. Unfortunately, given her marked hypoalbuminemia and liver disease any intravenous volume administration is likely to very quickly become extravascular and add to her marked
edema/anasarca without really having any sustained effect on her blood pressure.
There is a question as to whether underlying systemic infection/sepsis could be playing a role and infectious disease has been consulted.
Regarding atrial fibrillation specifically, she has a history of paroxysmal atrial fibrillation and currently is in atrial fibrillation with overall controlled ventricular rates of approximately 100 to 115 bpm.
I do not think atrial fibrillation is contributing to her hypotension.
As an outpatient she was on Eliquis 5 mg twice daily for atrial fibrillation related thromboembolic risk reduction. At present I do not see that she is ordered oral anticoagulation
Has a contraindication developed?
If no contraindication would resume oral anticoagulation
Also previously was on Cardizem for rate control. Currently not on Cardizem, and this may be related to her rather chronic hypotension. Overall her rates are not significantly rapid and it would be reasonable to maintain her off of Cardizem for
now.
When I met with the patient I also met with her and daughter who are at bedside. All of their questions have been answered.
Total time spent today was 80 minutes in preparing to see the patient, seeing the patient and coordination of care. This included review of recent laboratory evaluations, cardiac testing, imaging studies, medical records, as well as personally
interviewing and examining the patient, which included discussion of their tests, review/ordering medications, and communicating with other healthcare professionals and also treatment planning as well as counseling.
Data Reviewed
-
EKG: Tracing Personally Visualized and interpreted
Radiology: Image Personally Visualized and interpreted and Report Reviewed by me
Medical Tests (Nuc Med, Echo etc): Report Reviewed by me
Labs: Labs Reviewed by me, Discussed with Patient and Discussed with Family
Old Records: Reviewed
--- NOTE | 2024-10-27 15:30 | W.PN.UPDATE ---
Update Note
Progress Note Update
Call from Dr Haynes re: Ms Angela
He gave me a detailed review of patients recent history
Reviewed his concerns re: persistent hypotension and tachycardia and possible sepsis/progressive septic shock. He is starting stress dose steroids and IV fluids. We both agreed that patient likely needs antibiotics
Dr Haynes explained that in his opinion patient would benefit from hospice but that family have not been accepting of that. I also note nephrology recommendation of hospice
Reviewed patients chart - note that jaun Davenport had been concerned at what RN docuemented as tremors ~11/05/23 and daughter began to refuse use of any carbapenem since that time. I was following patient at that time and did not record tremors
on my exam at that time. Patient also has a history of hives with penicillin - not rechallenged per daughter since. Hives were as a child - not reattempted.
Her urine cultures have recently had ESBL isolates with very limited treatment options. We discussed alternative of zosyn and my concern that given her instability it is not a castillo time to challenge with a penicillin based drug such as zosyn. That
could be considered when more stable.
I also noted that delirium is common with the elderly with infections and tremors and delirium are common with cirrhosis.
In my opinion at this moment meropenem is likely the safest option. Given sepsis I have to assume that patient could be bacteremic until proven otherwise. If we see significant neuortoxicity we could try a challenge with zosyn at that time.
We also reviewed the option of no treatment and that would put her at risk of with sepsis.
I explained that there has been as significant clinical change since Dr Myles last assessment - development of persistent sepsis and no treatment puts her at risk of .
Daughter then stated 'shes been on midodrine for months' i explained that has been continued but her blood pressure is now persistently lower
I explained that she can refuse the meropenem if she wishes. 'Im just tying to understand because its so different from what the doctor yesterday said'
Explained that patient is sick enough that Dr Haynes called me and asked me to consider antibiotic options.
Ethel agrees to a trial of meropenem.
[2024-10-27 15:33] LABS: Lactic Acid 3.1 mmol/L (0.7-2.0)
[2024-10-27 15:34] LABS: ALT (SGPT) 15 U/L (0-35); AST (SGOT) 28 U/L (14-36); Alkaline Phosphatase 86 U/L (38-126); Total Protein 5.7 g/dl (6.3-8.2)
--- NOTE | 2024-10-27 15:58 | W.PN.ID1 ---
Addendum entered and electronically signed by Rosa Barnhart MD 10/27/24 16:54:
+ asterixes
check ammonia
CT a/p from yesterday did not show ascites
Original Note:
Date of Service
Date of Service: October 27, 2024
Today's Communication
trial of zosyn
Assessment / Plan
# Sepsis persistent possibly developing shock
# Adrenal insufficiency
# Urinary retention with vargas
# Asymptomatic bacteruria
- recent vargas exchange with colonization with two ESBLs
- send blood cultures x2, second set is ordered but not yet collected
- 10/26 urine culture >100K GNR of two morphotypes
- 10/14 urine culture >100K ESBL GNR x2 - K pneumoniae and ESBL Ecoli
- very limited treatment options
- lactic acidosis noted
- trial of zosyn - change made due to stated history of 'SANTOSH/ARF secondary to cefepime vs meropenem had emergent dialysis 3-4 episodes August 2024 [facility]'
- will have close monitoring with nursing staff, additionally she agrees to use her call mccall if noting new symptoms
- records requested
# Cough, head congestion
- CXR no PNA; repeat evaluation in the AM
- Procal <0.25
- Check COVID19 and Influenza - negative
# Left knee PJI pseudomonas
-s/p washout at [facility] 09/15
- On chronic suppressive therapy cipro
- renally adjust cipro dose to 500mg daily, first dose tomorrow
- can continue for the moment, we do not have sensitives on file here
- Follow-up with outside Ortho.
# SANTOSH on CKD
- Nephrology following
Patient with high burden of disease prior to arrival, hospice has been discussed with family by other providers and they are not interested
# Conditions [employer]
L knee PJI with Pseudomonas s/p washout at [facility] 09/15/24, on chronic suppression cipro
SANTOSH/ARF secondary to cefepime vs meropenem had emergent dialysis 3-4 episodes August 2024 [facility]
CKD stage IV
MAZARIEGOS cirrhosis with anasarca
Hx hepatic encephalopathy
P A-fib
Diastolic CHF
Hx pituitary cyst
EDELMIRA on CPAP (reportedly noncompliant)
Dyslipidemia
Hypothyroidism
GERD
Morbid obesity
L1 compression fracture
Orthostatic hypotension
HTN
ESBL in urine
Adrenal insufficiency
R TKR
Chief Complaint
-: Other (UTI, sepsis)
Subjective / Review of Systems
called by Dr Haynes and asked to reevaluate due to persistent hypotension
please see other note from same day as well
no chio fevers
persistent hypotension since about 6PM last night noted
no chio fevers
no events recorded overnight by nursing staff
nephrology comments appears prerenal vs hepatorenal
echo is planned but not yet completed
noted nephrology comment: 'SANTOSH/ARF secondary to cefepime/meropenem had emergent dialysis 3-4 episodes August 2024 [facility]'
doubt this was AIN however will need documentation - requested
daughter ofjewel ingram, however in my experience my chart is typically not the full chart and relevant information is often not included
rediscussed with patient/daughter, she recalls hives but cannot say anything else, does note shes never been challenged
Ethel asks me specifically if any data comparing carbapenems and zosyn head to head for ESBL, explained that there is date and meropenem was found to be superior, however, given the limited history that I have, would favor zosyn in this case
reviewed with nursing staff to keep an eye out for hives, progressive hypotension, progression of tachycardia etc
nonmobile
vargas recently replaced; had voiding trial yesterday - failed and catheter replaced
denies: headaches, sore throat, change in her chronic cough, nausea, vomiting, dysuria, suprapubic tendneress, new skin rashes, new joint pains
endorses: some occasional nausea, loose stool after cathartics
askes for full Na diet - deferred to nephrology
Vital Signs / Physical Exam
Vital Signs
Vital Signs
Temp Pulse Resp BP Pulse Ox
98.2 F 104 15 101/69 98
10/27/24 14:14 10/27/24 14:03 10/27/24 11:25 10/27/24 14:03 10/27/24 11:25
Physical Exam
Constitutional: Acutely Ill and Chronically Ill
Cardiovascular: Regular Rate and S1/S2; Negative Murmur or Rub
Pulmonary: Clear and Symmetric; Negative Wheezes or Rales
Gastrointestinal: Soft, Non Tender, Non Distended and Normal Bowel Sounds
Genito-Urinary: Clear Urine (some sediment in the vargas); Negative Suprapubic Tenderness
Extremities: Other (bruising in various stages of healing)
Skin: Warm and Dry; Negative Rash or Jaundice
Neurological: Awake
Objective Data
Lab Data
Lab Results
10/27/24 08:20
10/27/24 08:20
Estimated Creat Clear 19 ml/min 10/27/24 08:20
Lactic Acid 3.1 mmol/L (0.7-2.0) H 10/27/24 15:10
Total Bilirubin 3.0 mg/dl (0.2-1.3) H 10/27/24 15:10
AST 28 U/L (14-36) 10/27/24 15:10
ALT 15 U/L (0-35) 10/27/24 15:10
Alkaline Phosphatase 86 U/L (38-126) 10/27/24 15:10
Most recent labs reviewed.
Micro Results:
10/27/24 15:10 Blood Culture - Pending
Blood/Venous
10/26/24 00:08 Urine Culture - Preliminary
Urine Gram negative bacilli
10/26/24 20:31 MRSA Screen - Pending
Nose
10/26/24 14:57 Influenza Types A & B (TRISTAN) - Final
Nasal Swab Negative for Influenza A & B, NAAT
Negative results must be combined with clinical observations
and patient history.
Nucleic Acid Amplification test (NAAT)performed on the
[employer] platform.
10/26/24 CT a/p: Ill-defined groundglass opacity in the right upper lobe which may be inflammatory/infectious. Moderate colonic stool burden and colonic diverticulosis. Large volume stool seen filling and distending the rectum, without intestinal
obstruction. Evaluation of soft tissues of the true pelvis markedly limited without intravenous and oral contrast and also as a result of beam hardening artifact from metal hardware in the left hip. Atrophic kidneys bilaterally without gross
findings to suggest collecting system dilatation. Virtually empty urinary bladder containing some bubbles of air, difficult to determine if there is a Vargas catheter within.
10/25/24 CXR: No suspected pneumonia.
[2024-10-27 16:47] LABS: Cortisol, Random > 123.0 ug/dl
[2024-10-27] MEDS: ZOSYN 50 IV (17:59)
--- NOTE | 2024-10-27 19:12 | PTCARENOTE ---
Pt given 1st dose of Zosyn. VSS. No complaints.
[2024-10-27 20:25] LABS: Ammonia 11 umol/L (9-30)
--- NOTE | 2024-10-27 20:34 | PTCARENOTE ---
TT sent to [facility] regarding lactic of 4.0.
--- NOTE | 2024-10-27 20:40 | W.PN.UPDATE ---
Update Note
Progress Note Update
-Lactic acid trended up from 3.1 to 4.0. Patient afebrile and normal leukocytes. Currently on Zosyn and followed by ID.
-Will trend lactic q 6hrs.
[2024-10-28] VITALS (9 sets, daily range): BP systolic 102–126; BP diastolic 72–91
[2024-10-28] MEDS: SOLU-CORTEF 100 MG IV ×3 (01:35→16:13)
[2024-10-28] MEDS: ZOSYN 50 IV ×4 (01:36→17:54)
[2024-10-28 07:08] LABS: % Basophils 0.2 % (0-2); % Immature Granulocytes 1.7 % (0-0.5); % Lymphocytes 3.7 % (20.5-51.1); % Monocytes 4.7 % (1.7-9.3); % Neutrophils 89.7 % (42.2-75.2); Absolute Immature Granulocytes 0.2 10^3/uL (0-0.05); Absolute Lymphocytes 0.3 10^3/uL (1.2-3.4); Absolute Monocytes 0.4 10^3/uL (0.1-0.6); Absolute Neutrophils 8.2 10^3/uL (1.4-6.5); Hematocrit 31.1 % (37.0-47.0); Hemoglobin 9.9 g/dL (12.0-16.0); Mean Corp Hgb Conc. 31.8 g/dL (33.0-37.0); Mean Corpuscular Hgb 29.7 pg (27.0-31.0); Mean Corpuscular Volume 93.4 fL (81.0-99.0); Nucleated Red Blood Cells % 0 %; Platelet Count 132 10^3/uL (130-400); Red Blood Cell Count 3.33 10^6/uL (4.20-5.40); Red Cell Dist. Width 19.2 % (11.5-14.5); White Blood Cell Count 9.2 10^3/uL (4.8-10.8)
[2024-10-28] MEDS: SYNTHROID 75 MCG PO (07:08)
[2024-10-28 07:20] LABS: INR 2.34; PT 25.7 Sec (11.4-14.6)
[2024-10-28 07:29] LABS: Lactic Acid 2.4 mmol/L (0.7-2.0)
[2024-10-28 07:35] LABS: ALT (SGPT) 15 U/L (0-35); AST (SGOT) 27 U/L (14-36); Albumin 3.5 g/dl (3.5-5.0); Alkaline Phosphatase 95 U/L (38-126); Blood Urea Nitrogen 62 mg/dl (7-17); Calcium 8.9 mg/dl (8.4-10.2); Carbon Dioxide 29 mmol/L (22-30); Chloride 97 mmol/L (98-107); Estimated Creatinine Clearance 19 ml/min; Glucose 106 mg/dl (70-99); Potassium 4.5 mmol/L (3.5-5.1); Sodium 137 mmol/L (135-145); Total Bilirubin 3.3 mg/dl (0.2-1.3); Total Protein 5.1 g/dl (6.3-8.2); eGFR 18.44
--- NOTE | 2024-10-28 08:33 | W.PN.CARDCBS ---
Today's Communication / Plan
-
No new recommendations from a cardiology standpoint today.
Her rates in atrial fibrillation are just mildly rapid but on average are less than 120 bpm and given the concern with hypotension I would continue to hold off on Cardizem.
Blood pressures have improved somewhat and we may be able to reintroduce Cardizem over the next 24 hours.
This is a situation where we may end up recommending digoxin for rate control, carefully dosed and monitored given her chronic kidney disease and more recently acute on chronic kidney disease.
Given that she is mostly bedbound/not very active digoxin may provide adequate rate control.
Impression / Plan
-
Impression:
Chronic hypotension
Possibly adrenal insufficiency related
Liver disease may also be contributing
Hypoalbuminemic
There is also question of sepsis
Chronic HFpEF -NYHA class 3, ACC stage C
Paroxysmal Afib w/ RVR
Chronic Eliquis OAC
Obstructive sleep apnea, variable compliance with CPAP
Chronic adrenal insufficiency on chronic steroids
h/o pituitary cyst s/p removal 2013
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
History of hepatic encephalopathy
SANTOSH with background CKD stage 3B
Chronic anasarca/lymphedema/hypoalbuminemia
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
History of recurrent UTIs
HTN
Hypothyroidism
h/o statin intolerance
CXR 10/25/24: Normal pulmonary vascularity.
No pleural effusion, no pneumonia. Low lung volumes.
CT of the chest abdomen and pelvis10/26/24:
ill-defined groundglass opacity in the right upper lobe and some bibasilar subsegmental atelectasis and/or scarring
ECHO 02/29/24: This was a technically difficult study. The rhythm is AF, mildly reduced LVEF, global, EF 50%. Normal RV size and function. Mildly dilated right and left atrium. No significant valvular disease
Lexiscan nuclear stress test 2021: small mild zied defect mid anterior wall that is fixed, defect did not meet quantitative criteria, normal global LV function
Recommendations:
This is a complex case.
This morning she describes that she is feeling a bit stronger, ' more awake' and her blood pressure trends have improved.
Her hypotension is likely multifactorial with possible etiologies contributing to hypotension being chronic adrenal insufficiency, chronic liver disease, hypoalbuminemia with intravascular volume depletion and possibly sepsis.
Overall, while she clearly has extravascular volume overload I do not think she has intravascular volume overload. On physical exam there is no significant JVD. Imaging of the chest which includes chest x-ray as well as CT scan finds no evidence
of interstitial pulmonary edema. Overall I do not think she is an acute decompensated congestive heart failure. I do not think congestive heart failure is playing a role in her hypotension.
I would not diurese her at present.
Atrial fibrillation is present with ventricular rates that are overall well-controlled and I do not think atrial fibrillation is playing a significant role in her hypotension.
Would continue to treat hypotension as you are doing, agree with midodrine. Unfortunately, given her marked hypoalbuminemia and liver disease any intravenous volume administration is likely to very quickly become extravascular and add to her marked
edema/anasarca without really having any sustained effect on her blood pressure.
There is a question as to whether underlying systemic infection/sepsis could be playing a role and infectious disease has been consulted, antibiotics have been started
Regarding atrial fibrillation specifically, she has a history of paroxysmal atrial fibrillation and currently is in atrial fibrillation with overall controlled ventricular rates of approximately 100 to 115 bpm.
I do not think atrial fibrillation is contributing to her hypotension.
Maintain Eliquis 5 mg twice daily for atrial fibrillation related thromboembolic risk reduction.
Also previously was on Cardizem for rate control. Currently not on Cardizem, and this may be related to her rather chronic hypotension.
Overall her rates are not significantly rapid and it would be reasonable to maintain her off of Cardizem for now.
Her rates in atrial fibrillation are just mildly rapid but on average are less than 120 bpm and given the concern with hypotension I would continue to hold off on Cardizem.
Blood pressures have improved somewhat and we may be able to reintroduce Cardizem over the next 24 hours.
This is a situation where we may end up recommending digoxin for rate control, carefully dosed and monitored given her chronic kidney disease and more recently acute on chronic kidney disease.
Given that she is mostly bedbound/not very active digoxin may provide adequate rate control.
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
Subjective
Date of Service: October 28, 2024
She tells me that overall she is feeling better today, she notes that she feels more awake.
Objective
Labs:
10/28/24 06:50
10/28/24 06:50
Labs
Hgb 9.9 g/dL (12.0-16.0) L 10/28/24 06:50
Hct 31.1 % (37.0-47.0) L 10/28/24 06:50
Plt Count 132 10^3/uL (130-400) 10/28/24 06:50
PT 25.7 Sec (11.4-14.6) H 10/28/24 06:50
INR 2.34 10/28/24 06:50
Sodium 137 mmol/L (135-145) 10/28/24 06:50
Potassium 4.5 mmol/L (3.5-5.1) D 10/28/24 06:50
BUN 62 mg/dl (7-17) H 10/28/24 06:50
Creatinine 2.6 mg/dL (0.6-1.0) H 10/28/24 06:50
Glucose 106 mg/dl (70-99) H 10/28/24 06:50
Vital Signs and I&O:
Vital Signs
Temp Pulse Resp BP Pulse Ox
98.3 F 109 14 108/72 93
10/27/24 20:07 10/28/24 05:00 10/28/24 05:00 10/28/24 04:00 10/28/24 04:59
Vital Signs
Temp Pulse Resp BP Pulse Ox
98.3 F 109 14 108/72 93
10/27/24 20:07 10/28/24 05:00 10/28/24 05:00 10/28/24 04:00 10/28/24 04:59
Intake & Output
10/26/24 10/27/24 10/28/24 10/29/24
06:59 06:59 06:59 06:59
Intake Total 480 / 480 1040 / 1040
Output Total 700 / 700 975 / 975
Balance -220 / -220 65 / 65
Physical Exam
Physical Exam
She is more awake, brighter appearing today compared to yesterday
Irregularly irregular and mildly rapid rate with normal S1 and S2, no S3 no S4, grade 1/6 apical holosystolic murmur, no rubs
Lungs reduced breath sounds bilaterally without wheezes rales or rhonchi
Extremities show +4 pitting edema with brawny skin suggestive of chronic edema
[2024-10-28] MEDS: ATROVENT NEBULES 0.5 MG INH ×4 (08:42→19:40)
[2024-10-28] MEDS: ProAmatine 10 MG PO ×3 (09:12→22:09)
[2024-10-28] MEDS: MUCINEX 600 MG PO ×2 (09:12→20:27)
[2024-10-28] MEDS: DUPHALAC/CHRONULAC PO (09:13)
[2024-10-28] MEDS: CIPRO 500 MG PO (09:13)
[2024-10-28] MEDS: XIFAXAN 550 MG PO ×2 (09:37→20:27)
[2024-10-28] MEDS: CYMBALTA DELAYED RELEASE 30 MG PO ×2 (09:37→20:27)
[2024-10-28] MEDS: CYTOMEL 5 MICROGRAM PO (09:38)
[2024-10-28] MEDS: ELIQUIS 5 MG PO ×2 (09:42→20:27)
--- NOTE | 2024-10-28 09:58 | W.PN.NEPH.PH ---
Today's Communication / Plan
-
observe off diuretics
Assessment/Plan
-
Impression:
SANTOSH
Cough
CKD [id number] cr 1.5
Hx of Adrenal insufficiency
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
Abdominal ascites/hypoalbuminemia
MAZARIEGOS cirrhosis
Paroxysmal atrial fibrillation
Chronic diastolic heart failure/history of hepatic encephalopathy
Hypothyroidism
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
SANTOSH/ARF secondary to cefepime/meropenem had emergent dialysis 3-4 episodes August 2024 [facility] Verduzco
Chronic diastolic CHF
HTN, realtive hypotension on midodrine
HLD
Adrenal insufficiency, Hx adrenal crisis 2013
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
GERD
Depression
UTIs
Class II obesity
Nonmobile status stands to transfer since August 2024
Osteoporosis
Chronic L1 compression fracture on chronic as needed oral opiates
mild hyponatremia
Plan:
A/w SANTOSH-no clear etiology
non oliguric with vargas was replaced recently and UA concern of UTI
would hold bumex, U na low suggest prerenal vs hepatorenal physiology
CT no hydro but atrophic bilat kidneys, s/p albumin
Bp marginal still on midodrine, cardizem and BB on hold, check echo
suspect that we may have to tolerate higher cr to maintain vol status
she is anasarca and all edema is not amenable for diuresis
suspect she at risk of HD in near future however concern tolerability with low BPs, no emergent need currently
mild hyponatremia-improving
dose meds renally
cards follows for afib, planning dig
follow labs
avoid nephrotoxins
d/w daughter on phone in detail and answered questions on 10/27
d/w nursing
High risk encounter
-
-
Date of Service: October 28, 2024
CC / HPI / ROS
-
Chief Complaint:
SANTOSH, CKD
History of Present Illness:
cr down to 2.6, k better at 4.5
Bp soft on midodrine
non oliguric with vargas
wt no change
Review of Systems:
no cp or sob at rest
no n/v
cough+-reports improving
Labs
-
Labs:
WBC 9.2 10^3/uL (4.8-10.8) 10/28/24 06:50
RBC 3.33 10^6/uL (4.20-5.40) L 10/28/24 06:50
Hgb 9.9 g/dL (12.0-16.0) L 10/28/24 06:50
Hct 31.1 % (37.0-47.0) L 10/28/24 06:50
Plt Count 132 10^3/uL (130-400) 10/28/24 06:50
Sodium 137 mmol/L (135-145) 10/28/24 06:50
Potassium 4.5 mmol/L (3.5-5.1) D 10/28/24 06:50
Chloride 97 mmol/L (98-107) L 10/28/24 06:50
Carbon Dioxide 29 mmol/L (22-30) 10/28/24 06:50
BUN 62 mg/dl (7-17) H 10/28/24 06:50
Creatinine 2.6 mg/dL (0.6-1.0) H 10/28/24 06:50
eGFR 18.44 10/28/24 06:50
Glucose 106 mg/dl (70-99) H 10/28/24 06:50
Calcium 8.9 mg/dl (8.4-10.2) 10/28/24 06:50
Albumin 3.5 g/dl (3.5-5.0) 10/28/24 06:50
Physical Exam
-
Vital Signs:
Vital Signs
Temp Pulse Resp BP Pulse Ox
98.3 F 119 21 115/79 95
10/28/24 08:00 10/28/24 11:53 10/28/24 11:53 10/28/24 08:00 10/28/24 11:54
Cardiovascular:: Regular rate and rhythm
Respiratory:: Bilateral: Coarse
Lung Excursion:: Normal
Abdomen:: Nontender and Soft
Extremity Edema:: +3: Bilateral:
Vargas Catheter: Yes
--- NOTE | 2024-10-28 10:54 | W.PN.HOSP.TC ---
Today's Communication/Plan
-
IV antibiotics. IV steroids. Midodrine.
Assessment / Plan
Assessment / Plan
Physical exam:
General: Acute on chronically ill
HEENT: Normocephalic, Atraumatic and Moist Mucous Membranes
Respiratory: Clear to Auscultation; Negative Wheezes, Rales or Rhonchi
Cardiac: Regular Rhythm and S1/S2
GI: Soft, Nontender and Nondistended
Musculoskeletal: No Clubbing, No Cyanosis. Bilateral lower extremity edema
Neuro: Awake, Alert and Oriented, no gross neurodeficit but generalized weakness
Psych: Calm
A/P:
Hypotension with shock:
Improving
Suspect adrenal insufficiency related probably a component of sepsis. Less likely cardiogenic etiology
Continue IV stress doses of steroids but decrease from 100 mg every 8 hours to 50 mg every 8 hours
Midodrine +IV fluid 250 cc stat yesterday and IV steroids and antibiotics and improved
Cardiac monitoring
Checked blood cultures and lactic acid
Lactic acid trending down now
Checked cortisol level but unreliable high since she is getting steroids
Cardiology consulted-appreciated input
Discussed with ID given her multiple allergies to antibiotics and she was initiated on antibiotics.
Transferred to IMU yesterday but if remains stable over the next 24 hours can be transferred back to telemetry
ESBL Klebsiella pneumonia and E. coli multidrug-resistant catheter associated UTI:
Allergic to meropenem, cefepime, and penicillins
Discussed with ID as above
She had a trial of meropenem but did not tolerate well. She was placed on IV Zosyn.
Continue current IV antibiotics and follow-up cultures.
Appreciated ID consult.
Adrenal insufficiency:
Continue IV stress doses of steroids and taper as appropriate
SANTOSH:
Nephrology on board
Etiology could be sepsis related but hepatorenal also possible.
Nephrology has discussed with patient and family about poor prognosis but they would like to continue aggressive care at the moment
Avoid nephrotoxic
Reviewed nephrology and urology input
Continue to monitor renal function
Chronic diastolic CHF:
She does have peripheral edema but appears to have low intravascular volume depletion
Monitor volume status closely
Paroxysmal A-fib:
Resume anticoagulation Eliquis 5 mg twice a day
Add IV Lopressor 5 mg every 6 hours as needed for tachycardia and only sustained tachycardia to avoid hypotension.
twisting department end finder
History of Ngo liver cirrhosis:
Monitor volume status and decompensation from liver function as well
Continue oral lactulose
Hypothyroidism:
Continue thyroid replacement
Chronic postop knee infection:
On suppressive antibiotic therapy with Cipro
Anemia:
Continue to monitor hemoglobin closely
No signs of active bleed
Hypokalemia:
Replete and trend
DVT prophylaxis:
SCDs plus Eliquis
CODE STATUS:
Full code
Total time spent on today's encounter was 52 minutes which included time spent in counseling the patient/family regarding diagnosis and treatment plan as listed above, goals of care, and symptom management. Case was discussed with nursing staff,
specialists, and care coordinators/case management. All labs and imaging personally reviewed by me. Remainder the time spent in detailed review of previous records, lab data, imaging, and other medical provider documentation.
Anticipated Discharge: > 48 hours
Subjective/Interval History
-
Date of Service: October 28, 2024
Patient feels better overall. Blood pressure improved. Slightly tachycardic. Afebrile
Objective Data
-
Labs:
Laboratory Results
10/28/24
06:50
WBC 9.2
Hgb 9.9 L
Hct 31.1 L
Plt Count 132
PT 25.7 H
INR 2.34
Sodium 137
Potassium 4.5 D
Chloride 97 L
Carbon Dioxide 29
BUN 62 H
Creatinine 2.6 H
Glucose 106 H
Calcium 8.9
Total Bilirubin 3.3 H
AST 27
ALT 15
Alkaline Phosphatase 95
Vital Signs:
Vital Signs
Temp Pulse Resp BP Pulse Ox
98.3 F 112 13 115/79 95
10/28/24 08:00 10/28/24 08:47 10/28/24 08:47 10/28/24 08:00 10/28/24 08:47
I&O
10/27/24 10/28/24 10/29/24
06:59 06:59 06:59
Intake Total 480 / 480 1040 / 1040
Output Total 700 / 700 975 / 975
Balance -220 / -220 65 / 65
[2024-10-28] MEDS: DUPHALAC/CHRONULAC 20 GRAMS PO ×3 (13:46→22:04)
--- NOTE | 2024-10-28 20:50 | EDRN ---
R arm dressing not in place, skin tear exposed. This RN removed dressing. Area looks better than when this RN saw it 2 days ago. Skin tear with slight bloody fluid, fluid moveable underneath skin. EDT dressed with abx ointment, vaseline gauze,
4x4s and wrapped with gauze. Pt has not been wearing O2, says she wears it at nighttime. Pulse ox 89-90% room air, pt denies sob. Placed O2 back on pt and pulse ox 94%.
[2024-10-29] VITALS (9 sets, daily range): BP systolic 99–137; BP diastolic 72–110
[2024-10-29] MEDS: ZOSYN 50 IV ×4 (00:05→17:43)
[2024-10-29] MEDS: SOLU-CORTEF 50 MG IV (00:05)
[2024-10-29 06:01] LABS: % Basophils 0.3 % (0-2); % Immature Granulocytes 2.3 % (0-0.5); % Lymphocytes 3.7 % (20.5-51.1); % Monocytes 8.9 % (1.7-9.3); % Neutrophils 84.8 % (42.2-75.2); Absolute Immature Granulocytes 0.2 10^3/uL (0-0.05); Absolute Lymphocytes 0.4 10^3/uL (1.2-3.4); Hematocrit 32.8 % (37.0-47.0); Hemoglobin 10.3 g/dL (12.0-16.0); Mean Corp Hgb Conc. 31.4 g/dL (33.0-37.0); Mean Corpuscular Hgb 29.9 pg (27.0-31.0); Mean Corpuscular Volume 95.1 fL (81.0-99.0); Mean Platelet Volume 9.9 fL (7.4-10.4); Nucleated Red Blood Cells % 0.2 %; Platelet Count 156 10^3/uL (130-400); Red Blood Cell Count 3.45 10^6/uL (4.20-5.40); Red Cell Dist. Width 19.8 % (11.5-14.5); White Blood Cell Count 10.6 10^3/uL (4.8-10.8)
[2024-10-29 06:26] LABS: Blood Urea Nitrogen 67 mg/dl (7-17); Calcium 9.3 mg/dl (8.4-10.2); Carbon Dioxide 28 mmol/L (22-30); Chloride 97 mmol/L (98-107); Estimated Creatinine Clearance 19 ml/min; Glucose 136 mg/dl (70-99); Potassium 4.3 mmol/L (3.5-5.1); Sodium 138 mmol/L (135-145); eGFR 18.44
[2024-10-29] MEDS: ATROVENT NEBULES 0.5 MG INH ×4 (08:55→19:35)
--- NOTE | 2024-10-29 09:28 | W.PN.HOSP.TC ---
Today's Communication/Plan
-
Speech eval for aspiration.
US abdomen to evaluate for ascites
Echo pending.
Continue current antibiotics.
Taper hydrocortisone to 25 every 8 hours.
Resume bisoprolol and Cardizem.
Continue midodrine.
Consider gentle diuresis
Maintain Gutiérrez
Telemetry
Assessment / Plan
Assessment / Plan
Impression:
Sepsis present on admission.
Developing septic shock with acute on chronic hypotension.
SANTOSH on CKD stage IIIb baseline creatinine 1.5.
Lactic acidosis
Suspected adrenal insufficiency
Urinary retention requiring Gutiérrez catheter placement failing trial of voiding at the nursing facility.
Conditions prior to admission:
1. Recent hospitalization in outside hospital with prosthetic left
knee arthritis. Patient is on ciprofloxacin for chronic therapy.
2. Urinary tract infection with Klebsiella reported that admission
as well.
3. Acute kidney injury requiring hemodialysis, currently stable
renal function while on Bumex.
4. Chronic kidney disease, stage 3B, with baseline creatinine
around 1.4-1.5.
5. Advanced nonalcoholic steatohepatitis cirrhosis with anasarca
and hepatic encephalopathy. Patient is on maintenance of lactulose.
6. Paroxysmal atrial fibrillation. Patient is on anticoagulation
with Eliquis.
7. Chronic diastolic congestive heart failure.
8. Obstructive sleep apnea, not compliant, intolerant to CPAP.
9. Dyslipidemia.
10. Hypothyroidism on replacement.
11. Gastroesophageal reflux disease.
12. Obesity with body mass index of 38.
Plan:
Sepsis with septic shock present on admission.
Potential sources:
-Right upper lobe pneumonia, concern for aspiration,
-Complicated UTI noted with bacterial colonization ESBL Klebsiella, E. coli
� SBP?.
� Left knee PJI on ciprofloxacin suppression.
COVID-negative. Influenza negative
Blood cultures negative to date.
Chest x-ray with right upper lobe groundglass opacity
Repeated urine culture with ESBL E. coli/ESBL Klebsiella.
Multiple antibiotic allergies.
Currently on Zosyn as well as ciprofloxacin for left knee PJI suppression.
ID following
Check abdominal ultrasound for reason for ascites, if significant consider diagnostic paracentesis
Speech and swallow evaluation
Septic shock with acute on chronic hypotension present on admission
With stable hemodynamics at this point.
Continue midodrine.
Hold Bumex monitor renal function
Suspected adrenal insufficiency
Random cortisol level skewed with ongoing pulse dose of IV corticosteroids
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
Taper hydrocortisone to 25 mg IV every 8 hours
Acute kidney injury/CKD 3B with baseline creatinine 1.5
Metabolic acidosis/lactic acidosis
Decreased urine sodium suggesting prerenal etiology.
Nonoliguric
Gutiérrez is in place (has been replaced at nursing facility with failed trial of voiding prior to this admission)
Creatinine trending down to 3.1�2.6
Maintain Gutiérrez
Exam with volume overload/anasarca
Consider resume gentle diuresis if BPs allows
Avoid nephrotoxic agents.
Hypokalemia:
Replete and trend
Chronic diastolic CHF
Chest x-ray with groundglass opacity mostly at the right side? Pneumonia versus asymmetric pulmonary edema
Updated echocardiogram pending
Consider resuming diuresis if BP allows
Paroxysmal A-fib:
Resume anticoagulation Eliquis 5 mg twice a day
Reintroduce preadmission rate control regimen with bisoprolol and Cardizem. Monitor BP closely
quality assurance monitor body
History of Ngo liver cirrhosis:
Ultrasound to assess for ascites
Continue oral lactulose/rifaximin
Hypothyroidism:
Continue thyroid replacement
Chronic postop knee infection:
On suppressive antibiotic therapy with Cipro
Anemia:
Continue to monitor hemoglobin closely
No signs of active bleed
DVT prophylaxis:
SCDs plus Eliquis
CODE STATUS:
Full code
10/29: Goals of care discussion with patient's daughter. Indicating on overall deteriorating patient's condition with poor performance status, multiple organ failure including hepatic, renal, respiratory, recurrent hospitalization with sepsis
requiring intensive management. Suggesting palliative approach with consideration of hospice. Family will discuss options.
Anticipated Discharge: > 48 hours
Subjective/Interval History
-
Date of Service: October 29, 2024
Objective Data
-
Labs:
Laboratory Results
10/29/24
05:31
WBC 10.6
Hgb 10.3 L
Hct 32.8 L
Plt Count 156
Sodium 138
Potassium 4.3
Chloride 97 L
Carbon Dioxide 28
BUN 67 H
Creatinine 2.6 H
Glucose 136 H
Calcium 9.3
Vital Signs:
Vital Signs
Temp Pulse Resp BP Pulse Ox
98.2 F 123 20 134/95 93
10/28/24 20:46 10/29/24 08:58 10/29/24 08:58 10/29/24 04:00 10/29/24 08:58
I&O
10/28/24 10/29/24 10/30/24
06:59 06:59 06:59
Intake Total 1040 / 1040 340 / 340
Output Total 975 / 975 275 / 275
Balance 65 / 65 65 / 65
Physical Exam
-
General: Comfortable
Respiratory: Clear to Auscultation (ant) and Non Labored Respirations; Negative Accessory Resp Muscle Use
Cardiac: Regular Rhythm and S1/S2; Negative Tachycardic
GI: Soft and Nontender
Genito-urinary: Gutiérrez
Musculoskeletal: Edema, Right Upper Extrem, Edema, Left Upper Extrem, Edema, Right Lower Extrem and Edema, Left Lower Extrem
Neuro: AO x 3
Psych: Calm; Negative Confused
--- NOTE | 2024-10-29 11:06 | CM ---
Cm reviewed medical records. Patient remains acutely ill. Plan for discharge.
PLAN: STR
[2024-10-29] MEDS: CYTOMEL 5 MICROGRAM PO (11:11)
[2024-10-29] MEDS: CYMBALTA DELAYED RELEASE 30 MG PO ×2 (11:12→21:04)
[2024-10-29] MEDS: CIPRO 500 MG PO (11:12)
[2024-10-29] MEDS: SOLU-CORTEF 25 MG IV ×2 (11:12→17:43)
[2024-10-29] MEDS: SYNTHROID 75 MCG PO (11:12)
[2024-10-29] MEDS: ELIQUIS 5 MG PO ×2 (11:12→19:35)
[2024-10-29] MEDS: XIFAXAN 550 MG PO ×2 (11:12→21:04)
[2024-10-29] MEDS: ProAmatine 10 MG PO ×3 (11:12→21:06)
[2024-10-29] MEDS: MUCINEX 600 MG PO ×2 (11:12→19:35)
[2024-10-29] MEDS: DUPHALAC/CHRONULAC 20 GRAMS PO ×3 (11:15→17:44)
[2024-10-29] MEDS: SOLU-CORTEF IV (11:34)
--- NOTE | 2024-10-29 11:39 | PTOTSP ---
Speech Therapy Evaluation:
Pt exhibits clinical signs of oropharyngeal dysphagia, likely chronic in nature related to hx of GERD and ? CVA (noted in 1x provider note), compounded by acute medical illness with multiple organ failure and increased respiratory demand. Pt remains
at increased risk of aspiration and related complications given concern for breathing/swallow coordination and being mostly bedbound at baseline. No immediate s/sx of aspiration observed with solids/liquids, however congested cough noted
occasionally throughout meal, which was also noted in the absence of PO. Pt required significant amount of time for mastication and bolus formation of solids. WBC WNL. CXR with new development of R upper lobe PNA (CXR on admission without evidence
of PNA). Unable to successfully complete 3oz swallow screen given inability to take consecutive sips.
Recommend:
1. Diet downgrade to IDDSI Level 6 (soft and bite sized) solids; continue thin liquids
2. Medications as best tolerated
3. Close supervision
4. Monitor vitals and imaging. D/c oral diet if any worsening in respiratory status or concern for aspiration
5. FILER AND SANDER to follow re: tolerance of diet and to determine if VSE warranted
--- NOTE | 2024-10-29 12:17 | WOUNDNOTE ---
L UPPER POSTERIOR ARM
--- NOTE | 2024-10-29 12:18 | WOUNDNOTE ---
R UPPER MEDIAL ARM
--- NOTE | 2024-10-29 12:18 | WOUNDNOTE ---
R LATERAL LOWER ARM
--- NOTE | 2024-10-29 12:21 | WOUNDNOTE ---
R MEDIAL INNER THIGH
--- NOTE | 2024-10-29 12:24 | WOUNDNOTE ---
OCTAVIO RN note: Patient admitted with septic shock, urinary retention. Patient admitted from [facility]. PMH: a fib (Eliquis), MAZARIEGOS cirrhosis, hepatic encephalopathy, obesity, L knee, s/p wash by Dr. Valenzuela at [facility] for septic
prosthetic, Orthostatic hypotension, HTN, adrenal insufficiency (Prednisone), depression, obesity, EDELMIRA (non compliant with CPAP), non ambulatory since 08/2024, compression fracture L1, chronic back pain and skin tears.
See H&P for complete history.
Wound Location and type/assessment: Patient known to service, last seen 10/12/24 for multiple skin tears and L knee chronic slow to heal surgical site. Compared to last seen, wounds wall cleaner and R arm now draining serosanguineous drainage of large
amts. Diffuse anasarca of body with scattered bruising on limbs. R medial thigh with healing dark maroon linear lines, suspected from diaper use, now brief open. Mild MASD in skin folds, L outer labia ulcer healed. L distal buttock with tiny maroon
discolored skin suspect bruise. Non blanchable skin on sacrum and buttocks. Heels are red but blanchable. Assessed patient along with nurse Ocasio and dressings changed. at bedside and updated me on her wound care. Patient confirmed she
does not get out of bed.
Appetite: Fair, encouraged protein in diet, states she drinks boost at rehab center.
Pressure redistribution devices in place: Accumax with turning schedule. Air cushion on pillow under calves.
Plan: Will order Santyl with Xeroform for L knee, bilateral arm dressings with adaptic, dry dressing and Spandage. Kylie care given and barrier cream applied to buttocks. Repositioned patient to L semi side lying position. Heels off bed with
pillows. Nurse Ninfa will add foam adhesives and instructed to add air cushion on pillow when available.
Will confirm orders with Dr. Courtney. Care plan to be updated and will follow as needed.
Note to case management of equipment requested for discharge: Air mattress at [facility] if not already in place.
Recommend follow with wound care center after discharge.
--- NOTE | 2024-10-29 14:19 | W.PN.NEPH.PH ---
Today's Communication / Plan
-
Add back Bumex 1 mg p.o. twice daily
Assessment/Plan
-
Impression:
SANTOSH
Cough
CKD [id number] cr 1.5
ESBL in urine
Hx of Adrenal insufficiency
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
Abdominal ascites/hypoalbuminemia
MAZARIEGOS cirrhosis
Paroxysmal atrial fibrillation
Chronic diastolic heart failure/history of hepatic encephalopathy
Hypothyroidism
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
SANTOSH/ARF secondary to cefepime/meropenem had emergent dialysis 3-4 episodes August 2024 [facility] Verduz[facility]
Chronic diastolic CHF
HTN, realtive hypotension on midodrine
HLD
Adrenal insufficiency, Hx adrenal crisis 2013
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
GERD
Depression
UTIs
Class II obesity
Nonmobile status stands to transfer since August 2024
Osteoporosis
Chronic L1 compression fracture on chronic as needed oral opiates
mild hyponatremia
Plan:
A/w SANTOSH-no clear etiology other then low bp
Creatinine improved to 2.6 from 3.1
Will reinitiate oral Bumex 1mg BID for obvious volume overload
non oliguric with vargas was replaced recently and UA concern of UTI , but only 250cc recorded
Zosyn renally dosed
would hold bumex, U na low suggest prerenal vs hepatorenal physiology
CT no hydro but atrophic bilaterally kidneys, s/p albumin
Bp marginal still on midodrine, cardizem and BB on hold, check echo
suspect that we may have to tolerate higher cr to maintain vol status
she has anasarca and all edema is not amenable for diuresis
suspect she at risk of HD in near future however concern tolerability with low BPs, no emergent need currently
mild hyponatremia-improving
dose meds renally
cards follows for afib, planning dig, for echocardiogram
follow labs
avoid nephrotoxins
-
-
Date of Service: October 29, 2024
CC / HPI / ROS
-
Chief Complaint:
SANTOSH, CKD
History of Present Illness:
cr down to 2.6, k better at 4.3
Bp soft on midodrine
non oliguric with vargas
wt no change
Review of Systems:
no cp or sob at rest
no n/v
cough+-reports improving
Labs
-
Labs:
WBC 10.6 10^3/uL (4.8-10.8) 10/29/24 05:31
RBC 3.45 10^6/uL (4.20-5.40) L 10/29/24 05:31
Hgb 10.3 g/dL (12.0-16.0) L 10/29/24 05:31
Hct 32.8 % (37.0-47.0) L 10/29/24 05:31
Plt Count 156 10^3/uL (130-400) 10/29/24 05:31
Sodium 138 mmol/L (135-145) 10/29/24 05:31
Potassium 4.3 mmol/L (3.5-5.1) 10/29/24 05:31
Chloride 97 mmol/L (98-107) L 10/29/24 05:31
Carbon Dioxide 28 mmol/L (22-30) 10/29/24 05:31
BUN 67 mg/dl (7-17) H 10/29/24 05:31
Creatinine 2.6 mg/dL (0.6-1.0) H 10/29/24 05:31
eGFR 18.44 10/29/24 05:31
Glucose 136 mg/dl (70-99) H 10/29/24 05:31
Calcium 9.3 mg/dl (8.4-10.2) 10/29/24 05:31
Albumin 3.5 g/dl (3.5-5.0) 10/28/24 06:50
Physical Exam
-
Vital Signs:
Vital Signs
Temp Pulse Resp BP Pulse Ox
98.1 F 122 20 127/80 94
10/29/24 08:00 10/29/24 12:14 10/29/24 12:14 10/29/24 08:00 10/29/24 12:14
Cardiovascular:: Regular rate and rhythm
Respiratory:: Bilateral: Coarse
Lung Excursion:: Normal
Abdomen:: Nontender
Bowel Sounds:: Normal
Extremity Edema:: +3: Bilateral:
Vargas Catheter: Yes
[2024-10-29] MEDS: CARDIZEM CD 120 MG PO (14:23)
[2024-10-29] MEDS: ZEBETA 10 MG PO (14:23)
--- NOTE | 2024-10-29 15:03 | PN.CDI ---
CDI
- -
CDI:
Physician Documentation Request
Admit Date: 10/26/24 04:45
Dear Doctor Sherwin,
Clinical Indicators:
Patient admitted with sepsis.
2/3 [facility] RN Skin/Wound Assessment: Sacrum Stage 1 Pressure Injury, POA
Treatment: Barrier ointment
Physician documentation of the type and location of wounds is required for compliant documentation. Based on the above clinical findings and your assessment, please provide the following in your progress note:
1. Location of the ulcer/wound, including laterality.
2. Type (etiology) of ulcer/wound:
- Pressure (decubitus) ulcer
- Other
3. If a pressure ulcer, please also include the stage* of the ulcer:
- Stage 1 - Skin intact, non-blanchable redness
- Stage 2 - Partial thickness loss of dermis, includes intact or open blister
- Stage 3 - Full thickness tissue not including bone, tendon or muscle
- Stage 4 - Full thickness tissue loss, including exposed bone, tendon or muscle
- Unstageable - Full thickness loss in which the base of the ulcer is covered by slough (yellow, barba, nieto, green or brown) and/or eschar (barba, brown or black) in the wound bed.
- Unable to determine
Use of terms such as suspected, likely, concern for, or probable (associated with a specific diagnosis that is being evaluated, monitored, or treated as if it exists) are acceptable and can be coded in the inpatient setting, when documented at the
time of discharge.
Thank you,
Grace Rojas RN BSN
CDI Specialist
available via tiger text
Please use your independent medical judgment in providing your response.
*Source: National Pressure Ulcer Advisory Panel (NPUAP)
--- NOTE | 2024-10-29 16:15 | PTCARENOTE ---
Daughter requesting transfer to [facility] and has accepting physician, Dr. Caballero, . Dr. Courtney aware.
--- NOTE | 2024-10-29 16:26 | W.PN.CARDCBS ---
Addendum entered and electronically signed by Manuel Chavez MD 10/29/24 19:24:
79-year-old woman living at [facility] and followed by Dr. Bill Caballero at [place], with history of adrenal insufficiency following hypophysectomy in 2013 with chronic hypotension, MAFLD,, persistent A-fib, chronic HFpEF, CKD 3B, left
prosthetic knee Pseudomonas osteomyelitis, hypertension, hyperthyroidism, now admitted with presumed clinical sepsis and SANTOSH with worsening hypotension.
Present, she offers no specific complaints
Current medications: Zosyn, levothyroxine 75 mcg daily, Cytomel, prednisone 5 mg daily, midodrine 10 3 times daily, duloxetine 30 twice daily, rifaximin, lactulose, Cipro 500 mg a day, Mucinex, apixaban 5 twice daily, hydrocortisone 25 mg IV every 8
hours, bisoprolol 10 mg a day, diltiazem ER, Bumex 1 mg twice daily
, blood pressure has been in the 130 systolic with diastolics, heart rate is 118, resprate is 20, temp is 36.7, weight is 90.6 kg, on October 27, was 90.7 kg on the ,, no acute distress, lungs relatively clear, tachycardic, no obvious
murmurs, abdominal adiposity, 2+ to 3+ edema, nonfocal, pleasant,
Abdominal ultrasound, negative for ascites, chest x-ray cardiomegaly, presumed vascular congestion versus right upper lobe pneumonia
White count 10.6, hemoglobin 10.3, platelets 156, left shift with 2.3% bands, BUN and creatinine are 67 and 2.6, creatinine had been 1.5 on the and 3.2 on readmission
Echo EF 48% February 2024, pulmonary artery systolic pressure 50-55 mmHg, no significant valvular heart disease
Impression: See below
Plan:
She remains with a rapid ventricular response. Would consider digoxin or amiodarone given issues with blood pressure, though blood pressure with higher dose steroid therapy and midodrine and is currently adequate.
Last echo that we have was February 2024.
Currently transfer to [place] is pending. In light of the fact that there will be transition of care, will not make any changes at this time.
Stable for transfer from cardiac perspective.
Original Note:
Today's Communication / Plan
-
BP improved and a dose of Cardizem CD 120 mg PO daily given today
Eliquis has been continued
Afib seems to be more persistent based on ECGs with Afib/flutter since 11/2023
51 min in face to face, talking with family and coordination of care
Impression / Plan
-
PCP: Charmaine Damian FLOCCULATOR OPERATOR
Card: Dr. Alyssa Caballero
Impression:
Admitted with SANTOSH, sepsis, hypotension 10/25/24
Chronic hypotension
multifactorial including chronic adrenal insufficiency, chronic liver disease, hypoalbuminemia with intravascular volume depletion and possibly sepsis
Chronic HFpEF -NYHA class 3, ACC stage C
Afib w/ RVR
seems to be more persistent with ECGs in Afib since 11/2023
Chronic Eliquis OAC
Obstructive sleep apnea, variable compliance with CPAP
Chronic adrenal insufficiency on chronic steroids
h/o pituitary cyst s/p removal 2013
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
History of hepatic encephalopathy
SANTOSH with background CKD stage 3B
Chronic anasarca/lymphedema/hypoalbuminemia
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
History of recurrent UTIs
HTN
Hypothyroidism
h/o statin intolerance
Lexiscan nuclear stress test 2021: small mild zied defect mid anterior wall that is fixed, defect did not meet quantitative criteria, normal global LV function
ECHO 02/29/24: This was a technically difficult study. The rhythm is AF, mildly reduced LVEF, global, EF 50%. Normal RV size and function. Mildly dilated right and left atrium. No significant valvular disease
Plan:
-Patient admitted from [facility] on night, 10/25/24 with SANTOSH. Cardiology was consulted for Afib with RVR.
-Nephrology following for SANTOSH on CKD 3b. Outpatient dose of Bumex 1 mg PO BID to start 10/29/24 PM for hypervolemia.
-Nephrology note points out that patient has anasarca and all edema is not amenable for diuresis. There is also concern the patient is at risk for HD in the near future, but given low BP it is unclear if she would tolerate that and certainly no
need emergently.
-Hypotension is likely multifactorial including chronic adrenal insufficiency, chronic liver disease, hypoalbuminemia with intravascular volume depletion and possibly sepsis.
-Abdominal U/S on 10/29/2024 showed no significant ascites
-No indication of acute HF
-Patient with h/o Afib, but family is unsure if this is persistent or paroxysmal. Family describes that when VN is out to see patient that her VS are normal and heart sounds regular, but no regular cardiac monitoring. After talking with patient and
family on 10/29/24 I spent time in [place] reviewing historical ECGs and as far back as 11/2023 patient has been in atrial fibrillation or atrial flutter so atrial arrhythmia seems more persistent
-Will cont rate control efforts. Outpatient dose of Cardizem CD 120 mg daily was able to be given on 10/29/2024 as BP was stable.
-Talked with patient, spouse, daughter in the room and daughter by phone about other options including addition of digoxin for rate control, but outlined concerns for toxicity given SANTOSH on CKD. Also discussed the possibility of adding amiodarone as
adjunct rate control, but then the concern is for her history of MAZARIEGOS. We also discussed the possibility of CV, but that without addition of rhythm control med that she might quickly recur with Afib and now that we know that she has been persistent
since 11/2023 it makes the idea of CV seem less ideal.
-Outpatient dose of Eliquis 5 mg BID (age 79, Cre 2.6, wt 90.58 kg) has been continued
Progress Note - Dry House Operator
Subjective
Date of Service: October 29, 2024
Feeling better, she says that she is asking for transfer to [place] and has talked with Dr. Caballero
Objective
Labs:
10/29/24 05:31
10/29/24 05:31
Labs
Hgb 10.3 g/dL (12.0-16.0) L 10/29/24 05:31
Hct 32.8 % (37.0-47.0) L 10/29/24 05:31
Plt Count 156 10^3/uL (130-400) 10/29/24 05:31
PT 25.7 Sec (11.4-14.6) H 10/28/24 06:50
INR 2.34 10/28/24 06:50
Sodium 138 mmol/L (135-145) 10/29/24 05:31
Potassium 4.3 mmol/L (3.5-5.1) 10/29/24 05:31
BUN 67 mg/dl (7-17) H 10/29/24 05:31
Creatinine 2.6 mg/dL (0.6-1.0) H 10/29/24 05:31
Glucose 136 mg/dl (70-99) H 10/29/24 05:31
Vital Signs and I&O:
Vital Signs
Temp Pulse Resp BP Pulse Ox
98.1 F 118 19 99/81 94
10/29/24 08:00 10/29/24 16:00 10/29/24 16:00 10/29/24 16:00 10/29/24 12:14
Vital Signs
Temp Pulse Resp BP Pulse Ox
98.1 F 118 19 99/81 94
10/29/24 08:00 10/29/24 16:00 10/29/24 16:00 10/29/24 16:00 10/29/24 12:14
Intake & Output
10/27/24 10/28/24 10/29/24 10/30/24
06:59 06:59 06:59 06:59
Intake Total 480 / 480 1040 / 1040 340 / 340
Output Total 700 / 700 975 / 975 275 / 275
Balance -220 / -220 65
Physical Exam
Physical Exam
GEN: NAD. AAOx3
HEENT: MMM
LUNGS: RA. No audible wheeze
CV: Afib on tele
NEURO: Gross non-focal
--- NOTE | 2024-10-29 16:34 | W.PN.UPDATE ---
Update Note
Progress Note Update
Patient's daughter requesting transfer to [facility] to primary payment manager and slitter creaser slotter helper service
Discussed with Dr. Caballero primary payment manager over the phone [phone].
Patient accepted by Dr. Caballero for transfer.
Plan is to reassess clinical status in a.m. and coordinate with transfer center for possible transfer.
--- NOTE | 2024-10-29 18:03 | W.PN.ID1 ---
Date of Service
Date of Service: October 29, 2024
Today's Communication
Continue Zosyn and cipro for now.
Assessment / Plan
# RUL PNA
# Acute on chronic hypotension
# Adrenal insufficiency
# Suspect CAUTI. Urinary retention with vargas
# Allergies to meropenem (tremors), cefepime (mental status change), PCN (hives)
-COVID/Flu negative
- blood cultures x1 neg to date
- 10/26 urine culture > 100K ESBL GNR x2 - K pneumoniae and ESBL Ecoli
- 10/14 urine culture >100K ESBL GNR x2 - K pneumoniae and ESBL Ecoli (untreated)
- Continue Zosyn (d3 of 7) for PNA and CAUTI. Pt tolerating abx.
# SANTOSH on CKD4
- Nephrology following
# AFIB with RVR
- Family requesting transfer to [place]
# Left knee PJI pseudomonas
-s/p washout, liner exchange at [facility] 09/15
- On chronic suppressive therapy cipro, renally adjusted 500mg daily.
- Currently on Zosyn for PNA and ESBL UTI - unknown if Pseudomonas sensitive Zosyn. Continue cipro for now.
- Follow-up with outside Ortho.
# Conditions DIRECTOR CASE
L knee PJI with Pseudomonas s/p washout at [facility] 09/15/24, on chronic suppression cipro
SANTOSH/ARF secondary to cefepime vs meropenem had emergent dialysis 3-4 episodes August 2024 [facility]
CKD stage IV
MAZARIEGOS cirrhosis with anasarca
Hx hepatic encephalopathy
P A-fib
Diastolic CHF
Hx pituitary cyst
EDELMIRA on CPAP (reportedly noncompliant)
Dyslipidemia
Hypothyroidism
GERD
Morbid obesity
L1 compression fracture
Orthostatic hypotension
HTN
ESBL in urine
Adrenal insufficiency
R TKR
Chief Complaint
-: Other (UTI, sepsis)
Subjective / Review of Systems
Cough better.
Tolerating Zosyn without itching or rash.
Vital Signs / Physical Exam
Vital Signs
Vital Signs
Temp Pulse Resp BP Pulse Ox
98.1 F 118 20 99/81 94
10/29/24 08:00 10/29/24 16:28 10/29/24 16:28 10/29/24 16:00 10/29/24 16:28
Physical Exam
Constitutional: Comfortable and Chronically Ill
Cardiovascular: Irregular Rate and Other (tachy)
Pulmonary: Coarse (right lung)
Gastrointestinal: Soft, Non Tender and Non Distended
Genito-Urinary: Vargas and Clear Urine; Negative CVA Tenderness
Extremities: Edema (Bilateral UE, and BLE)
Musculoskeletal: Other (left knee no erythema)
Neurological: AO x 3
Objective Data
Lab Data
Lab Results
10/29/24 05:31
10/29/24 05:31
PT 25.7 Sec (11.4-14.6) H 10/28/24 06:50
INR 2.34 10/28/24 06:50
Estimated Creat Clear 19 ml/min 10/29/24 05:31
Lactic Acid 2.4 mmol/L (0.7-2.0) H 10/28/24 06:50
Total Bilirubin 3.3 mg/dl (0.2-1.3) H 10/28/24 06:50
AST 27 U/L (14-36) 10/28/24 06:50
ALT 15 U/L (0-35) 10/28/24 06:50
Alkaline Phosphatase 95 U/L (38-126) 10/28/24 06:50
Most recent labs reviewed.
Micro Results:
10/27/24 15:10 Blood Culture - Preliminary
Blood/Venous No Growth in 48 hours- Final report to follow
10/26/24 20:31 MRSA Screen - Final
Nose No Methicillin Resistant Staphylococcus aureus isolated.
10/26/24 00:08 Urine Culture - Final
Urine Klebsiella pneumoniae-ESBL
Escherichia coli - ESBL
10/26/24 14:57 Influenza Types A & B (TRISTAN) - Final
Nasal Swab Negative for Influenza A & B, NAAT
Negative results must be combined with clinical observations
and patient history.
Nucleic Acid Amplification test (NAAT)performed on the
[employer] platform.
10/26/24 CT chest a/p: Ill-defined groundglass opacity in the right upper lobe which may be inflammatory/infectious. Moderate colonic stool burden and colonic diverticulosis. Large volume stool seen filling and distending the rectum, without
intestinal obstruction. Evaluation of soft tissues of the true pelvis markedly limited without intravenous and oral contrast and also as a result of beam hardening artifact from metal hardware in the left hip. Atrophic kidneys bilaterally without
gross findings to suggest collecting system dilatation. Virtually empty urinary bladder containing some bubbles of air, difficult to determine if there is a Vargas catheter within.
10/25/24 CXR: No suspected pneumonia.
[2024-10-29] MEDS: BUMEX 1 MG PO (19:35)
[2024-10-29] MEDS: FLORASTOR 250 MG PO (21:04)
[2024-10-29] MEDS: DUPHALAC/CHRONULAC PO ×2 (21:06→23:12)
[2024-10-29] MEDS: LOPRESSOR 5 MG IV (21:06)
[2024-10-30 00:05] VITALS: BP 110/72
[2024-10-30] MEDS: ZOSYN 50 IV ×5 (00:30→23:35)
[2024-10-30] MEDS: AFRIN NASAL SPRAY NASAL ×4 (00:31→21:07)
[2024-10-30] MEDS: SOLU-CORTEF 25 MG IV ×3 (00:31→23:04)
[2024-10-30 06:06] LABS: Blood Urea Nitrogen 69 mg/dl (7-17); Calcium 9.1 mg/dl (8.4-10.2); Carbon Dioxide 28 mmol/L (22-30); Chloride 98 mmol/L (98-107); Estimated Creatinine Clearance 21 ml/min; Glucose 117 mg/dl (70-99); Potassium 4.1 mmol/L (3.5-5.1); Sodium 139 mmol/L (135-145); eGFR 20.29
[2024-10-30] MEDS: SYNTHROID 75 MCG PO (06:31)
[2024-10-30] MEDS: CYTOMEL 5 MICROGRAM PO (06:43)
[2024-10-30] MEDS: ATROVENT NEBULES 0.5 MG INH ×2 (07:38→20:08)
[2024-10-30] MEDS: XIFAXAN 550 MG PO ×2 (09:36→21:00)
[2024-10-30] MEDS: CYMBALTA DELAYED RELEASE 30 MG PO ×2 (09:37→21:00)
[2024-10-30] MEDS: FLORASTOR 250 MG PO ×2 (09:37→21:02)
[2024-10-30] MEDS: ELIQUIS PO (09:42)
[2024-10-30] MEDS: CIPRO 500 MG PO (09:43)
[2024-10-30] MEDS: MUCINEX 600 MG PO ×2 (09:43→21:00)
[2024-10-30] MEDS: DUPHALAC/CHRONULAC PO ×5 (09:46→22:56)
--- NOTE | 2024-10-30 09:47 | W.PN.HOSP.TC ---
Today's Communication/Plan
-
Continue current antibiotics per
Monitor for recurrent epistaxis and hold Eliquis for now.
Follow hemoglobin.
Monitor A-fib rate with reintroduction of rate control medications.
Continue Bumex
Taper hydrocortisone.
Will initiate transfer to [place] as per request of family
Assessment / Plan
Assessment / Plan
Impression:
Sepsis present on admission.
Developing septic shock with acute on chronic hypotension.
SANTOSH on CKD stage IIIb baseline creatinine 1.5.
Lactic acidosis
Suspected adrenal insufficiency
Urinary retention requiring Gutiérrez catheter placement failing trial of voiding at the nursing facility.
Conditions prior to admission:
1. Recent hospitalization in outside hospital with prosthetic left
knee arthritis. Patient is on ciprofloxacin for chronic therapy.
2. Urinary tract infection with Klebsiella reported that admission
as well.
3. Acute kidney injury requiring hemodialysis, currently stable
renal function while on Bumex.
4. Chronic kidney disease, stage 3B, with baseline creatinine
around 1.4-1.5.
5. Advanced nonalcoholic steatohepatitis cirrhosis with anasarca
and hepatic encephalopathy. Patient is on maintenance of lactulose.
6. Paroxysmal atrial fibrillation. Patient is on anticoagulation
with Eliquis.
7. Chronic diastolic congestive heart failure.
8. Obstructive sleep apnea, not compliant, intolerant to CPAP.
9. Dyslipidemia.
10. Hypothyroidism on replacement.
11. Gastroesophageal reflux disease.
12. Obesity with body mass index of 38.
Plan:
Sepsis with septic shock present on admission.
Potential sources:
-Right upper lobe pneumonia, concern for aspiration,
-Complicated UTI noted with bacterial colonization ESBL Klebsiella, E. coli
� SBP less likely. Abdominal ultrasound with no evidence of ascites
� Left knee PJI on ciprofloxacin suppression.
COVID-negative. Influenza negative
Blood cultures negative to date.
Chest x-ray with right upper lobe groundglass opacity
Repeated urine culture with ESBL E. coli/ESBL Klebsiella.
Multiple antibiotic allergies.
Currently on Zosyn as well as ciprofloxacin for left knee PJI suppression.
ID following
Speech and swallow evaluation
Septic shock with acute on chronic hypotension present on admission
With stable hemodynamics at this point.
Continue midodrine.
Hold Bumex monitor renal function
Suspected adrenal insufficiency
Random cortisol level skewed with ongoing pulse dose of IV corticosteroids
On maintenance of prednisone 5 mg SHORE MAN.
Taper hydrocortisone to 25 mg IV every 8 hours
Acute kidney injury/CKD 3B with baseline creatinine 1.5
Metabolic acidosis/lactic acidosis
Decreased urine sodium suggesting prerenal etiology.
Nonoliguric
Gutiérrez is in place (has been replaced at nursing facility with failed trial of voiding prior to this admission)
Creatinine trending down to 3.1�2.6
Maintain Gutiérrez
Exam with volume overload/anasarca
Consider resume gentle diuresis if BPs allows
Avoid nephrotoxic agents.
Hypokalemia:
Replete and trend
Chronic CHF mildly reduced EF
Echo 03/19 LVEF 48-50%. Estimated pulmonary pressure 50-55 mmHg. Mild TR
Chest x-ray with groundglass opacity mostly at the right side? Pneumonia versus asymmetric pulmonary edema
Updated echocardiogram pending
Bumex resumed.
Paroxysmal A-fib:
On anticoagulation for thromboembolic prophylaxis with Eliquis SHORE MAN.
Reintroduce preadmission rate control regimen with bisoprolol and Cardizem. Monitor BP closely
monitoring coordinator
Epistaxis noted on . Self-limited. On current exam with no active bleeding. Hold Eliquis acutely and monitor closely.
History of Ngo liver cirrhosis:
Ultrasound to assess for ascites
Continue oral lactulose/rifaximin
Hypothyroidism:
Continue thyroid replacement
Chronic postop knee infection:
On suppressive antibiotic therapy with Cipro
Anemia:
Continue to monitor hemoglobin closely
No signs of active bleed
DVT prophylaxis:
SCDs plus Eliquis
CODE STATUS:
Full code
10/29: Goals of care discussion with patient's daughter. Indicating on overall deteriorating patient's condition with poor performance status, multiple organ failure including hepatic, renal, respiratory, recurrent hospitalization with sepsis
requiring intensive management. Suggesting palliative approach with consideration of hospice. Family will discuss options.
Anticipated Discharge: 24 - 48 hours
Subjective/Interval History
-
Date of Service: October 30, 2024
Objective Data
-
Labs:
Laboratory Results
10/30/24
05:35
Sodium 139
Potassium 4.1
Chloride 98
Carbon Dioxide 28
BUN 69 H
Creatinine 2.4 H
Glucose 117 H
Calcium 9.1
Vital Signs:
Vital Signs
Temp Pulse Resp BP Pulse Ox
97.8 F 125 18 110/72 95
10/30/24 07:00 10/30/24 07:42 10/30/24 07:42 10/30/24 00:05 10/30/24 07:42
I&O
10/29/24 10/30/24 10/31/24
06:59 06:59 06:59
Intake Total 340 / 340
Output Total 275 / 275
Balance 65 / 65
[2024-10-30] MEDS: CARDIZEM CD 120 MG PO (09:53)
[2024-10-30] MEDS: ProAmatine 10 MG PO ×3 (09:54→22:59)
--- NOTE | 2024-10-30 10:12 | CM ---
Plan for transfer to [place].
[2024-10-30] MEDS: BUMEX 1 MG PO ×2 (10:14→21:06)
[2024-10-30] MEDS: ZEBETA 10 MG PO (10:14)
[2024-10-30] MEDS: SOLU-CORTEF IV (10:15)
--- NOTE | 2024-10-30 10:51 | W.PN.CARDCBS ---
Addendum entered and electronically signed by Micky hCeema MD 10/30/24 14:50:
I saw and examined the patient.
The Client Care Manager's note was reviewed and I agree with the note.
Comment:
GEN: No distress, awake, Ox3
HEENT: supple, anicteric, mmm
LUNGS: CTA, no wheezes/rales
CV: Irreg, S1/S2, 1/6 syst LSB, no gallop
ABD: soft, BS+, NT/ND
EXT: No edema
NEURO: Gross non-focal
SKIN: No rash
Plan:
Still awaiting transfer to [place]. A-fib remains with modestly elevated rates. Will continue diltiazem.
Continue midodrine and Bumex.
Original Note:
Today's Communication / Plan
-
Cont Cardizem CD 120 mg daily
Await transfer to [facility]
Impression / Plan
-
PCP: Charmaine Damian JBOSS DEVELOPER
Card: Dr. Alyssa Caballero
Impression:
Admitted with SANTOSH, sepsis, hypotension 10/25/24
Chronic hypotension
multifactorial including chronic adrenal insufficiency, chronic liver disease, hypoalbuminemia with intravascular volume depletion and possibly sepsis
Chronic HFpEF -NYHA class 3, ACC stage C
Afib w/ RVR
seems to be more persistent with ECGs in Afib since 11/2023
Chronic Eliquis OAC
Obstructive sleep apnea, variable compliance with CPAP
Chronic adrenal insufficiency on chronic steroids
h/o pituitary cyst s/p removal 2013
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
History of hepatic encephalopathy
SANTOSH with background CKD stage 3B
Chronic anasarca/lymphedema/hypoalbuminemia
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
History of recurrent UTIs
HTN
Hypothyroidism
h/o statin intolerance
Epistaxis
Lexiscan nuclear stress test 2021: small mild zied defect mid anterior wall that is fixed, defect did not meet quantitative criteria, normal global LV function
ECHO 02/29/24: This was a technically difficult study. The rhythm is AF, mildly reduced LVEF, global, EF 50%. Normal RV size and function. Mildly dilated right and left atrium. No significant valvular disease
Plan:
-Patient admitted from [facility] on night, 10/25/24 with SANTOSH. Cardiology was consulted for Afib with RVR.
-Remains in Afib with fair rate control. Patient feels that she has paroxysmal Afib, but ECGs in [facility] from as far back as 11/2023 are Afib/flutter, although was in SR by ECGs 10/2023. Patient denies palpitations. VS monitored at long term, but
no routine rhythm monitoring.
-Outpatient dose of Cardizem CD 120 mg dialy was held on admission due to hypotension, but has been resumed since 10/29/24.
-Talked with patient, spouse, daughter in the room and daughter by phone 10/29/24 and reviewed possible management options including addition of digoxin for rate control, but outlined concerns for toxicity given SANTOSH on CKD. Also discussed the
possibility of adding amiodarone as adjunct rate control, but then the concern is for her history of MAZARIEGOS. We also discussed the possibility of CV, but that without addition of rhythm control med that she might quickly recur with Afib and now that
we know that she has been persistent since 11/2023 it makes the idea of CV seem less ideal.
-Outpatient dose of Eliquis 5 mg BID (age 79, Cre 2.4, wt 90.58 kg) has been continued
-Hypotension is likely multifactorial including chronic adrenal insufficiency, chronic liver disease, hypoalbuminemia with intravascular volume depletion and possibly sepsis. Hypotension is improving with IV antibiotics and hydrocortisone.
-Abdominal U/S on 10/29/2024 showed no significant ascites
-Nephrology following for SANTOSH on CKD 3b. Outpatient dose of Bumex 1 mg PO BID restarted 10/29/24 PM for hypervolemia. Does not appear to be in acute HF
-Nephrology note points out that patient has anasarca and all edema is not amenable for diuresis. There is also concern the patient is at risk for HD in the near future, but given low BP it is unclear if she would tolerate that and certainly no
need emergently.
-Taking a break from her oxygen NC due to epistaxis. Dabbing at nose instead of steady pressure, encouraged steady pressure and no tissues inside of the nose.
-Patient is awaiting transfer to [facility] to be with her primary hot braider, Dr. Alyssa Caballero who will act as accepting physician.
Progress Note - Field Reporter
Subjective
Date of Service: October 30, 2024
Epistaxis that started prior to my arrival, no pain
Objective
Labs:
10/30/24 05:35
Labs
Hgb 10.3 g/dL (12.0-16.0) L 10/29/24 05:31
Hct 32.8 % (37.0-47.0) L 10/29/24 05:31
Plt Count 156 10^3/uL (130-400) 10/29/24 05:31
PT 25.7 Sec (11.4-14.6) H 10/28/24 06:50
INR 2.34 10/28/24 06:50
Sodium 139 mmol/L (135-145) 10/30/24 05:35
Potassium 4.1 mmol/L (3.5-5.1) 10/30/24 05:35
BUN 69 mg/dl (7-17) H 10/30/24 05:35
Creatinine 2.4 mg/dL (0.6-1.0) H 10/30/24 05:35
Glucose 117 mg/dl (70-99) H 10/30/24 05:35
Vital Signs and I&O:
Vital Signs
Temp Pulse Resp BP Pulse Ox
97.8 F 112 18 101/62 95
10/30/24 07:00 10/30/24 10:14 10/30/24 07:42 10/30/24 10:14 10/30/24 07:42
Vital Signs
Temp Pulse Resp BP Pulse Ox
97.8 F 112 18 101/62 95
10/30/24 07:00 10/30/24 10:14 10/30/24 07:42 10/30/24 10:14 10/30/24 07:42
Intake & Output
10/28/24 10/29/24 10/30/24 10/31/24
06:59 06:59 06:59 06:59
Intake Total 1040 / 1040 340 / 340
Output Total 975 / 975 275 / 275
Balance 65 / 65 65 / 65
Physical Exam
Physical Exam
GEN: NAD. AAOx3
HEENT: right nares epistaxis, MMM
LUNGS: RA. No audible wheeze
CV: Afib on tele
NEURO: Gross non-focal
[2024-10-30] MEDS: ATROVENT NEBULES INH ×2 (11:10→14:56)
[2024-10-30] MEDS: FLUSH (NSS) 2 FLUSH IV ×2 (12:07→17:33)
--- NOTE | 2024-10-30 13:13 | W.PN.NEPH.PH ---
Today's Communication / Plan
-
Maintain oral Bumex
BMP in a.m.
Assessment/Plan
-
Impression:
SANTOSH
Cough
CKD [id number] cr 1.5
ESBL in urine
Hx of Adrenal insufficiency
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
Abdominal ascites/hypoalbuminemia
MAZARIEGOS cirrhosis
Paroxysmal atrial fibrillation
Chronic diastolic heart failure/history of hepatic encephalopathy
Hypothyroidism
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
SANTOSH/ARF secondary to cefepime/meropenem had emergent dialysis 3-4 episodes August 2024 [facility]
Chronic diastolic CHF
HTN, realtive hypotension on midodrine
HLD
Adrenal insufficiency, Hx adrenal crisis 2013
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
GERD
Depression
UTIs
Class II obesity
Nonmobile status stands to transfer since August 2024
Osteoporosis
Chronic L1 compression fracture on chronic as needed oral opiates
mild hyponatremia
Plan:
A/w SANTOSH-no clear etiology other then low bp
Creatinine improved to 2.4 from 3.1
Continue oral Bumex 1mg BID for obvious volume overload but with compromised effective circulating
Urine output not recorded
Zosyn renally dosed
CT no hydro but atrophic bilaterally kidneys, s/p albumin
Bp marginal still on midodrine, cardizem and bisoprolol was restarted by cardiology
suspect that we may have to tolerate higher cr to maintain volume status
she has anasarca and all edema is not amenable for diuresis
suspect she at risk of HD in near future however concern tolerability with low BPs, no emergent need currently
dose meds renally
follow labs
avoid nephrotoxins
-
-
Date of Service: October 30, 2024
CC / HPI / ROS
-
Chief Complaint:
SANTOSH, CKD
History of Present Illness:
cr down to 2.4 k better at 4.1
Bp soft on midodrine
wt no change
Review of Systems:
no cp or sob at rest
no n/v
cough+-reports improving
weights up
Labs
-
Labs:
Sodium 139 mmol/L (135-145) 10/30/24 05:35
Potassium 4.1 mmol/L (3.5-5.1) 10/30/24 05:35
Chloride 98 mmol/L (98-107) 10/30/24 05:35
Carbon Dioxide 28 mmol/L (22-30) 10/30/24 05:35
BUN 69 mg/dl (7-17) H 10/30/24 05:35
Creatinine 2.4 mg/dL (0.6-1.0) H 10/30/24 05:35
eGFR 20.29 10/30/24 05:35
Glucose 117 mg/dl (70-99) H 10/30/24 05:35
Calcium 9.1 mg/dl (8.4-10.2) 10/30/24 05:35
Albumin 3.5 g/dl (3.5-5.0) 10/28/24 06:50
Physical Exam
-
Vital Signs:
Vital Signs
Temp Pulse Resp BP Pulse Ox
97.8 F 112 18 101/62 96
10/30/24 07:00 10/30/24 10:14 10/30/24 07:42 10/30/24 10:14 10/30/24 10:45
Cardiovascular:: Regular rate and rhythm
Respiratory:: Bilateral: Coarse
Lung Excursion:: Normal
Abdomen:: Nontender
Bowel Sounds:: Normal
Extremity Edema:: +2: Bilateral:
Gutiérrez Catheter: No
--- NOTE | 2024-10-30 15:44 | CM ---
Call placed to [facility] at . They stated her status was changed this morning to a high priority , but still no beds. Currently their [place] location is working on emergent transfers. They could not give me an
estimate of when a bed may become available, but restated that she is a high priority. update to Director of ED
[2024-10-30 16:05] VITALS: BP 133/98
[2024-10-30] MEDS: SANTYL OINTMENT 1 APPLIC TOPICAL (16:08)
[2024-10-30] MEDS: ProAmatine PO (16:18)
[2024-10-30 16:25] LABS: Hematocrit 32.9 % (37.0-47.0); Hemoglobin 10.4 g/dL (12.0-16.0); Mean Corp Hgb Conc. 31.6 g/dL (33.0-37.0); Mean Corpuscular Volume 94.8 fL (81.0-99.0); Mean Platelet Volume 10.5 fL (7.4-10.4); Platelet Count 129 10^3/uL (130-400); Red Blood Cell Count 3.47 10^6/uL (4.20-5.40); Red Cell Dist. Width 19.5 % (11.5-14.5); White Blood Cell Count 10.9 10^3/uL (4.8-10.8)
--- NOTE | 2024-10-30 16:35 | W.PN.ID1 ---
Date of Service
Date of Service: October 30, 2024
Today's Communication
Continue abx's.
Assessment / Plan
# RUL PNA
# Acute on chronic hypotension
# Adrenal insufficiency
# Suspect CAUTI. Urinary retention with vargas
# Allergies to meropenem (tremors), cefepime (mental status change), PCN (hives, but tolerating Zosyn)
-COVID/Flu negative
- blood cultures x1 neg to date
- 10/26 urine culture > 100K ESBL GNR x2 - K pneumoniae and ESBL Ecoli
- 10/14 urine culture >100K ESBL GNR x2 - K pneumoniae and ESBL Ecoli (untreated)
- Continue Zosyn (d4 of 7) for PNA and CAUTI. Pt tolerating abx.
# SANTOSH on CKD4, improving
- Nephrology following
# Left knee PJI pseudomonas
-s/p washout, liner exchange at [facility] 09/15
- On chronic suppressive therapy cipro, renally adjusted 500mg daily.
- Currently on Zosyn for PNA and ESBL UTI - unknown if Pseudomonas sensitive Zosyn. Continue cipro for now.
- Follow-up with outside Ortho.
# AFIB with RVR
- Awaiting transfer to [place] [facility] as per family request.
# Conditions [facility] GRINDER
L knee PJI with Pseudomonas s/p washout at [facility] 09/15/24, on chronic suppression cipro
SANTOSH/ARF secondary to cefepime vs meropenem had emergent dialysis 3-4 episodes August 2024 [facility]
CKD stage IV
MAZARIEGOS cirrhosis with anasarca
Hx hepatic encephalopathy
P A-fib
Diastolic CHF
Hx pituitary cyst
EDELMIRA on CPAP (reportedly noncompliant)
Dyslipidemia
Hypothyroidism
GERD
Morbid obesity
L1 compression fracture
Orthostatic hypotension
HTN
ESBL in urine
Adrenal insufficiency
R TKR
Chief Complaint
-: Pneumonia
Subjective / Review of Systems
Had nose bleed overnight, none now.
Cough better.
Vital Signs / Physical Exam
Vital Signs
Vital Signs
Temp Pulse Resp BP Pulse Ox
97.8 F 112 18 133/98 96
10/30/24 07:00 10/30/24 10:14 10/30/24 07:42 10/30/24 16:18 10/30/24 10:45
Physical Exam
Constitutional: Comfortable and Chronically Ill
Cardiovascular: Irregular Rate and Other (tachy)
Pulmonary: Coarse (right lung)
Gastrointestinal: Soft, Non Tender and Non Distended
Genito-Urinary: Vargas and Clear Urine; Negative CVA Tenderness
Extremities: Edema (Bilateral UE, and BLE)
Musculoskeletal: Other (left knee no erythema)
Neurological: AO x 3
Objective Data
Lab Data
Lab Results
10/30/24 15:55
10/30/24 05:35
PT 25.7 Sec (11.4-14.6) H 10/28/24 06:50
INR 2.34 10/28/24 06:50
Estimated Creat Clear 21 ml/min 10/30/24 05:35
Lactic Acid 2.4 mmol/L (0.7-2.0) H 10/28/24 06:50
Total Bilirubin 3.3 mg/dl (0.2-1.3) H 10/28/24 06:50
AST 27 U/L (14-36) 10/28/24 06:50
ALT 15 U/L (0-35) 10/28/24 06:50
Alkaline Phosphatase 95 U/L (38-126) 10/28/24 06:50
Most recent labs reviewed.
Micro Results:
10/27/24 15:10 Blood Culture - Preliminary
Blood/Venous No Growth in 72 hours- Final report to follow
10/26/24 20:31 MRSA Screen - Final
Nose No Methicillin Resistant Staphylococcus aureus isolated.
10/26/24 00:08 Urine Culture - Final
Urine Klebsiella pneumoniae-ESBL
Escherichia coli - ESBL
10/26/24 14:57 Influenza Types A & B (TRISTAN) - Final
Nasal Swab Negative for Influenza A & B, NAAT
Negative results must be combined with clinical observations
and patient history.
Nucleic Acid Amplification test (NAAT)performed on the
[employer] platform.
10/26/24 CT chest a/p: Ill-defined groundglass opacity in the right upper lobe which may be inflammatory/infectious. Moderate colonic stool burden and colonic diverticulosis. Large volume stool seen filling and distending the rectum, without
intestinal obstruction. Evaluation of soft tissues of the true pelvis markedly limited without intravenous and oral contrast and also as a result of beam hardening artifact from metal hardware in the left hip. Atrophic kidneys bilaterally without
gross findings to suggest collecting system dilatation. Virtually empty urinary bladder containing some bubbles of air, difficult to determine if there is a Vargas catheter within.
10/25/24 CXR: No suspected pneumonia.
[2024-10-30] MEDS: LOPRESSOR 5 MG IV (17:33)
[2024-10-30 17:36] LABS: % Basophils 0.5 % (0-2); % Immature Granulocytes 7.4 % (0-0.5); % Monocytes 11.8 % (1.7-9.3); % Neutrophils 76.3 % (42.2-75.2); Absolute Basophils 0.1 10^3/uL (0-0.2); Absolute Immature Granulocytes 0.8 10^3/uL (0-0.05); Absolute Lymphocytes 0.4 10^3/uL (1.2-3.4); Absolute Monocytes 1.3 10^3/uL (0.1-0.6); Absolute Neutrophils 8.3 10^3/uL (1.4-6.5); Nucleated Red Blood Cells % 0.7 %
[2024-10-30 18:50] VITALS: BP 99/73; BMI 37.5
[2024-10-30 23:00] VITALS: BP 120/84
[2024-10-31 03:00] VITALS: BP 132/89
--- NOTE | 2024-10-31 04:48 | PTCARENOTE ---
Patient admitted to rm 324 @1850, arrived on unit via stretcher. Patient AAOx3, denies any pain or discomfort. VSS, on O2@2lpm, oriented to unit, call mccall within reach, daughter by bedside.
[2024-10-31] MEDS: LOPRESSOR 5 MG IV ×3 (05:17→17:29)
[2024-10-31 05:19] LABS: % Basophils 0.3 % (0-2); % Immature Granulocytes 8.2 % (0-0.5); % Monocytes 12.2 % (1.7-9.3); % Neutrophils 74.3 % (42.2-75.2); Absolute Lymphocytes 0.6 10^3/uL (1.2-3.4); Absolute Monocytes 1.4 10^3/uL (0.1-0.6); Absolute Neutrophils 8.6 10^3/uL (1.4-6.5); Hematocrit 32.9 % (37.0-47.0); Hemoglobin 10.5 g/dL (12.0-16.0); Mean Corp Hgb Conc. 31.9 g/dL (33.0-37.0); Mean Corpuscular Hgb 29.9 pg (27.0-31.0); Mean Corpuscular Volume 93.7 fL (81.0-99.0); Mean Platelet Volume 10.2 fL (7.4-10.4); Nucleated Red Blood Cells % 1.5 %; Platelet Count 129 10^3/uL (130-400); Red Blood Cell Count 3.51 10^6/uL (4.20-5.40); Red Cell Dist. Width 19.8 % (11.5-14.5); White Blood Cell Count 11.6 10^3/uL (4.8-10.8)
[2024-10-31] MEDS: ZOSYN 50 IV ×4 (05:19→23:25)
[2024-10-31] MEDS: CYTOMEL 5 MICROGRAM PO (05:20)
[2024-10-31] MEDS: SYNTHROID 75 MCG PO (05:20)
[2024-10-31 05:40] LABS: Blood Urea Nitrogen 65 mg/dl (7-17); Calcium 8.9 mg/dl (8.4-10.2); Carbon Dioxide 26 mmol/L (22-30); Chloride 98 mmol/L (98-107); Estimated Creatinine Clearance 23 ml/min; Glucose 125 mg/dl (70-99); Potassium 3.5 mmol/L (3.5-5.1); Sodium 137 mmol/L (135-145); eGFR 22.53
[2024-10-31 06:00] VITALS: BMI 37.1
[2024-10-31 07:20] VITALS: BP 136/72
[2024-10-31] MEDS: ATROVENT NEBULES 0.5 MG INH ×4 (07:31→20:02)
--- NOTE | 2024-10-31 08:48 | PTCARENOTE ---
IV team informed this RN of swelling throughout left arm. LUE +3 to +4. MD made aware, no new orders provided.
[2024-10-31] MEDS: CARDIZEM CD 120 MG PO ×2 (08:55→20:26)
[2024-10-31] MEDS: CYMBALTA DELAYED RELEASE 30 MG PO ×2 (08:56→20:27)
[2024-10-31] MEDS: XIFAXAN 550 MG PO ×2 (08:56→20:27)
[2024-10-31] MEDS: ZEBETA 10 MG PO (08:56)
[2024-10-31] MEDS: BUMEX 1 MG PO ×2 (08:56→20:26)
[2024-10-31] MEDS: ProAmatine 10 MG PO ×3 (08:56→21:50)
[2024-10-31] MEDS: FLORASTOR 250 MG PO ×2 (08:56→20:27)
[2024-10-31] MEDS: CIPRO 500 MG PO (08:56)
[2024-10-31] MEDS: DUPHALAC/CHRONULAC 20 GRAMS PO ×2 (08:56→12:02)
[2024-10-31] MEDS: MUCINEX 600 MG PO ×2 (08:56→20:27)
[2024-10-31] MEDS: AFRIN NASAL SPRAY 2 SPRAYS NASAL (09:00)
[2024-10-31] MEDS: SANTYL OINTMENT 1 APPLIC TOPICAL (09:00)
--- NOTE | 2024-10-31 10:41 | VATNOTE ---
On vat rounds L arm +1-2 edema Primary RN aware recommended ULS will monitor closely
[2024-10-31 10:49] VITALS: BP 146/70
[2024-10-31] MEDS: SOLU-CORTEF 25 MG IV (11:18)
--- NOTE | 2024-10-31 11:58 | PTCARENOTE ---
Pt c/o cough, made aware, new order provided, see MAR.
[2024-10-31] MEDS: ROBITUSSIN DM 5 ML PO ×2 (12:02→16:42)
--- NOTE | 2024-10-31 14:58 | W.PN.HOSP.TC ---
Today's Communication/Plan
-
Continue antibiotics
Resume Eliquis and monitor for recurrent epistaxis pain
Continue diuretics.
Physical therapy assessment
Pending transfer to [place]
Assessment / Plan
Assessment / Plan
Impression:
Sepsis present on admission.
Developing septic shock with acute on chronic hypotension.
SANTOSH on CKD stage IIIb baseline creatinine 1.5.
Lactic acidosis
Suspected adrenal insufficiency
Urinary retention requiring Gutiérrez catheter placement failing trial of voiding at the nursing facility.
Conditions prior to admission:
1. Recent hospitalization in outside hospital with prosthetic left
knee arthritis. Patient is on ciprofloxacin for chronic therapy.
2. Urinary tract infection with Klebsiella reported that admission
as well.
3. Acute kidney injury requiring hemodialysis, currently stable
renal function while on Bumex.
4. Chronic kidney disease, stage 3B, with baseline creatinine
around 1.4-1.5.
5. Advanced nonalcoholic steatohepatitis cirrhosis with anasarca
and hepatic encephalopathy. Patient is on maintenance of lactulose.
6. Paroxysmal atrial fibrillation. Patient is on anticoagulation
with Eliquis.
7. Chronic diastolic congestive heart failure.
8. Obstructive sleep apnea, not compliant, intolerant to CPAP.
9. Dyslipidemia.
10. Hypothyroidism on replacement.
11. Gastroesophageal reflux disease.
12. Obesity with body mass index of 38.
Plan:
Sepsis with septic shock present on admission.
Potential sources:
-Right upper lobe pneumonia, concern for aspiration,
-Complicated UTI noted with bacterial colonization ESBL Klebsiella, E. coli
� SBP less likely. Abdominal ultrasound with no evidence of ascites
� Left knee PJI on ciprofloxacin suppression.
COVID-negative. Influenza negative
Blood cultures negative to date.
Chest x-ray with right upper lobe groundglass opacity
Repeated urine culture with ESBL E. coli/ESBL Klebsiella.
Multiple antibiotic allergies.
Currently on Zosyn as well as ciprofloxacin for left knee PJI suppression.
ID following
Speech and swallow evaluation
Septic shock with acute on chronic hypotension present on admission
With stable hemodynamics at this point.
Continue midodrine.
Hold Bumex monitor renal function
Suspected adrenal insufficiency
Random cortisol level skewed with ongoing pulse dose of IV corticosteroids
On maintenance of prednisone 5 mg PUBLIC RELATIONS COUNSELOR.
Taper hydrocortisone to 25 mg IV every 8 hours
Acute kidney injury/CKD 3B with baseline creatinine 1.5
Metabolic acidosis/lactic acidosis
Decreased urine sodium suggesting prerenal etiology.
Nonoliguric
Gutiérrez is in place (has been replaced at nursing facility with failed trial of voiding prior to this admission)
Creatinine trending down to 3.1�2.6
Maintain Gutiérrez
Exam with volume overload/anasarca
Consider resume gentle diuresis if BPs allows
Avoid nephrotoxic agents.
Hypokalemia:
Replete and trend
Chronic CHF mildly reduced EF
Echo 03/19 LVEF 48-50%. Estimated pulmonary pressure 50-55 mmHg. Mild TR
Chest x-ray with groundglass opacity mostly at the right side? Pneumonia versus asymmetric pulmonary edema
Updated echocardiogram pending
Bumex resumed.
Paroxysmal A-fib:
On anticoagulation for thromboembolic prophylaxis with Eliquis PUBLIC RELATIONS COUNSELOR.
Reintroduce preadmission rate control regimen with bisoprolol and Cardizem. Monitor BP closely
media monitor
Epistaxis noted on . Self-limited. On current exam with no active bleeding. Continue Eliquis with caution
History of Ngo liver cirrhosis:
Ultrasound to assess for ascites
Continue oral lactulose/rifaximin
Hypothyroidism:
Continue thyroid replacement
Chronic postop knee infection:
On suppressive antibiotic therapy with Cipro
Anemia:
Continue to monitor hemoglobin closely
No signs of active bleed
DVT prophylaxis:
SCDs plus Eliquis
CODE STATUS:
Full code
2/03: Goals of care discussion with patient's daughter. Indicating on overall deteriorating patient's condition with poor performance status, multiple organ failure including hepatic, renal, respiratory, recurrent hospitalization with sepsis
requiring intensive management. Suggesting palliative approach with consideration of hospice. Family will discuss options.
Anticipated Discharge: Within 24 hours
Subjective/Interval History
-
Date of Service: October 31, 2024
Objective Data
-
Labs:
Laboratory Results
10/31/24
04:58
WBC 11.6 H
Hgb 10.5 L
Hct 32.9 L
Plt Count 129 L
Sodium 137
Potassium 3.5
Chloride 98
Carbon Dioxide 26
BUN 65 H
Creatinine 2.2 H
Glucose 125 H
Calcium 8.9
Vital Signs:
Vital Signs
Temp Pulse Resp BP Pulse Ox
97.9 F 118 18 146/70 93
10/31/24 10:49 10/31/24 11:28 10/31/24 11:28 10/31/24 11:17 10/31/24 11:28
I&O
10/30/24 10/31/24 11/01/24
06:59 06:59 06:59
Intake Total 920 / 920
Output Total 1900 / 1900
Balance -980 / -980
Physical Exam
-
General: Comfortable
Respiratory: Clear to Auscultation (ant) and Non Labored Respirations; Negative Accessory Resp Muscle Use
Cardiac: Regular Rhythm and S1/S2; Negative Tachycardic
GI: Soft and Nontender
Genito-urinary: Gutiérrez
Musculoskeletal: Edema, Right Upper Extrem, Edema, Left Upper Extrem, Edema, Right Lower Extrem and Edema, Left Lower Extrem
Neuro: AO x 3
Psych: Calm; Negative Confused
[2024-10-31 15:09] VITALS: BP 114/73
--- NOTE | 2024-10-31 15:39 | W.PN.ID1 ---
Date of Service
Date of Service: October 31, 2024
Today's Communication
Continue Zosyn and cipro
Follow wbc
Assessment / Plan
# RUL PNA
# Suspect CAUTI. Urinary retention with vargas
# Allergies to meropenem (tremors), cefepime (mental status change), PCN (hives, but tolerating Zosyn)
-COVID/Flu negative
- blood cultures x1 neg to date
- 10/26 urine culture > 100K ESBL GNR x2 - K pneumoniae and ESBL Ecoli
- 10/14 urine culture >100K ESBL GNR x2 - K pneumoniae and ESBL Ecoli (untreated)
- Continue Zosyn (d5 of 7) for PNA and CAUTI. Pt tolerating abx.
# Leukocytosis
# Acute on chronic hypotension, resolved
# Adrenal insufficiency
- On stress dose steroid, tapering
- Elev wbc suspect due to steroid:
10/29/24 received 2 doses hydrocortisone IV -> wbc 10.9 (10/30/24). 10/30 received 3 doses hydrocortisone -> wbc 11.6 (10/31)
- Follow wbc
# SANTOSH on CKD4, improving
- Nephrology following
# Left knee PJI pseudomonas
-s/p washout, liner exchange at [facility] 09/15
- On chronic suppressive therapy cipro, renally adjusted 500mg daily.
- Currently on Zosyn for PNA and ESBL UTI - unknown if Pseudomonas sensitive Zosyn. Continue cipro.
- Follow-up with outside Ortho.
# Persistent AFIB with RVR
- Awaiting transfer to [place].
# Conditions OIM CONSULTANT
L knee PJI with Pseudomonas s/p washout at [facility] 09/15/24, on chronic suppression cipro
SANTOSH/ARF secondary to cefepime vs meropenem had emergent dialysis 3-4 episodes August 2024 [facility]
CKD stage IV
MAZARIEGOS cirrhosis with anasarca
Hx hepatic encephalopathy
P A-fib
Diastolic CHF
Hx pituitary cyst
EDELMIRA on CPAP (reportedly noncompliant)
Dyslipidemia
Hypothyroidism
GERD
Morbid obesity
L1 compression fracture
Orthostatic hypotension
HTN
ESBL in urine
Adrenal insufficiency
R TKR
Chief Complaint
-: Pneumonia
Subjective / Review of Systems
c/o nose being clogged. Had mild nosebleed the other day. On oxygen.
No diarrhea
Vital Signs / Physical Exam
Vital Signs
Vital Signs
Temp Pulse Resp BP Pulse Ox
99.4 F 105 18 114/73 92
10/31/24 15:09 10/31/24 15:36 10/31/24 15:36 10/31/24 15:09 10/31/24 15:36
Physical Exam
Constitutional: No Acute Distress and Chronically Ill
Cardiovascular: Irregular Rate and Other (tachy)
Pulmonary: Rhonchi
Gastrointestinal: Soft, Non Tender, Non Distended and Normal Bowel Sounds
Genito-Urinary: Vargas and Clear Urine
Extremities: Edema (Anasarca improved)
Musculoskeletal: Other (left knee stable without erythema/warmth, incision with eschar)
Neurological: AO x 3
Objective Data
Lab Data
Lab Results
10/31/24 04:58
10/31/24 04:58
PT 25.7 Sec (11.4-14.6) H 10/28/24 06:50
INR 2.34 10/28/24 06:50
Estimated Creat Clear 23 ml/min 10/31/24 04:58
Lactic Acid 2.4 mmol/L (0.7-2.0) H 10/28/24 06:50
Total Bilirubin 3.3 mg/dl (0.2-1.3) H 10/28/24 06:50
AST 27 U/L (14-36) 10/28/24 06:50
ALT 15 U/L (0-35) 10/28/24 06:50
Alkaline Phosphatase 95 U/L (38-126) 10/28/24 06:50
Most recent labs reviewed.
Micro Results:
10/27/24 15:10 Blood Culture - Preliminary
Blood/Venous No Growth in 4 days- Final report to follow
10/26/24 20:31 MRSA Screen - Final
Nose No Methicillin Resistant Staphylococcus aureus isolated.
10/26/24 00:08 Urine Culture - Final
Urine Klebsiella pneumoniae-ESBL
Escherichia coli - ESBL
10/26/24 14:57 Influenza Types A & B (TRISTAN) - Final
Nasal Swab Negative for Influenza A & B, NAAT
Negative results must be combined with clinical observations
and patient history.
Nucleic Acid Amplification test (NAAT)performed on the
[employer] platform.
10/26/24 CT chest a/p: Ill-defined groundglass opacity in the right upper lobe which may be inflammatory/infectious. Moderate colonic stool burden and colonic diverticulosis. Large volume stool seen filling and distending the rectum, without
intestinal obstruction. Evaluation of soft tissues of the true pelvis markedly limited without intravenous and oral contrast and also as a result of beam hardening artifact from metal hardware in the left hip. Atrophic kidneys bilaterally without
gross findings to suggest collecting system dilatation. Virtually empty urinary bladder containing some bubbles of air, difficult to determine if there is a Vargas catheter within.
10/25/24 CXR: No suspected pneumonia.
--- NOTE | 2024-10-31 16:26 | W.PN.CARDCBS ---
Addendum entered and electronically signed by Micky Cheema MD 10/31/24 17:59:
I saw and examined the patient.
The Knurling Machine Operator's note was reviewed and I agree with the note.
Comment:
GEN: No distress, awake, Ox3
HEENT: supple, anicteric, mmm
LUNGS: scatt rhonchi
CV: Irreg, S1/S2, 1/6 syst LSB, no gallop
ABD: soft, BS+, NT/ND
EXT: No edema
NEURO: Gross non-focal
SKIN: No rash
plan:
Vent rates are still mildly elevated. Will try increasing Cardizem to 120mg bid.
Cont Midodrine 10 po tid
Resume Eliquis, Hg 10-11.
Await transfer to [place] for evaluation by Alyssa Caballero
Original Note:
Today's Communication / Plan
-
Increase Cardizem CD to 120 mg BID as BP tolerates
Impression / Plan
-
PCP: Charmaine Damian COMPOUND MIXER
Card: Dr. Alyssa Caballero
Impression:
Admitted with SANTOSH, sepsis, hypotension 10/25/24
Chronic hypotension
multifactorial including chronic adrenal insufficiency, chronic liver disease, hypoalbuminemia with intravascular volume depletion and possibly sepsis
Chronic HFpEF -NYHA class 3, ACC stage C
Afib w/ RVR
seems to be more persistent with ECGs in Afib since 11/2023
Chronic Eliquis OAC
Obstructive sleep apnea, variable compliance with CPAP
Chronic adrenal insufficiency on chronic steroids
h/o pituitary cyst s/p removal 2013
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
History of hepatic encephalopathy
SANTOSH with background CKD stage 3B
Chronic anasarca/lymphedema/hypoalbuminemia
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
History of recurrent UTIs
HTN
Hypothyroidism
h/o statin intolerance
Epistaxis
Lexiscan nuclear stress test 2021: small mild zied defect mid anterior wall that is fixed, defect did not meet quantitative criteria, normal global LV function
ECHO 02/29/24: This was a technically difficult study. The rhythm is AF, mildly reduced LVEF, global, EF 50%. Normal RV size and function. Mildly dilated right and left atrium. No significant valvular disease
Plan:
-Patient admitted from [facility] on night, 10/25/24 with SANTOSH. Cardiology was consulted for Afib with RVR. Patient has been waiting on transfer to [place].
-Remains in Afib with fair rate control on tele review by wa 10/31/24. ECGs in [facility] from as far back as 11/2023 are Afib/flutter, although was in SR by ECGs 10/2023. Patient denies palpitations. VS monitored at intermediate, but no routine rhythm
monitoring.
-Outpatient dose of Cardizem CD 120 mg daily was held on admission due to hypotension, but was resumed since 10/29/24. As BP has improved will try to add Cardizem CD 120 mg BID starting 10/31/24 PM and hold for SBP less than 100.
-Outpatient dose of Eliquis 5 mg BID (age 79, Cre 2.4, wt 90.58 kg) has been continued
-Hypotension is likely multifactorial including chronic adrenal insufficiency, chronic liver disease, hypoalbuminemia with intravascular volume depletion and possibly sepsis. Hypotension is improving with IV antibiotics and hydrocortisone.
-Abdominal U/S on 10/29/2024 showed no significant ascites
-Nephrology following for SANTOSH on CKD 3b. Outpatient dose of Bumex 1 mg PO BID restarted 10/29/24 PM for hypervolemia. Does not appear to be in acute HF
-Nephrology note points out that patient has anasarca and all edema is not amenable for diuresis. There is also concern the patient is at risk for HD in the near future, but given low BP it is unclear if she would tolerate that and certainly no
need emergently.
-Taking a break from her oxygen NC due to epistaxis. Dabbing at nose instead of steady pressure, encouraged steady pressure and no tissues inside of the nose.
Progress Note - Sustainability Coordinator
Subjective
Date of Service: October 31, 2024
She said that Dr. Caballero's office told her that no beds available and she is now a high priority status
Objective
Labs:
10/31/24 04:58
10/31/24 04:58
Labs
Hgb 10.5 g/dL (12.0-16.0) L 10/31/24 04:58
Hct 32.9 % (37.0-47.0) L 10/31/24 04:58
Plt Count 129 10^3/uL (130-400) L 10/31/24 04:58
PT 25.7 Sec (11.4-14.6) H 10/28/24 06:50
INR 2.34 10/28/24 06:50
Sodium 137 mmol/L (135-145) 10/31/24 04:58
Potassium 3.5 mmol/L (3.5-5.1) 10/31/24 04:58
BUN 65 mg/dl (7-17) H 10/31/24 04:58
Creatinine 2.2 mg/dL (0.6-1.0) H 10/31/24 04:58
Glucose 125 mg/dl (70-99) H 10/31/24 04:58
Vital Signs and I&O:
Vital Signs
Temp Pulse Resp BP Pulse Ox
99.4 F 105 18 114/73 92
10/31/24 15:09 10/31/24 15:36 10/31/24 15:36 10/31/24 15:09 10/31/24 15:36
Vital Signs
Temp Pulse Resp BP Pulse Ox
99.4 F 105 18 114/73 92
10/31/24 15:09 10/31/24 15:36 10/31/24 15:36 10/31/24 15:09 10/31/24 15:36
Intake & Output
10/29/24 10/30/24 10/31/24 11/01/24
06:59 06:59 06:59 06:59
Intake Total 340 / 340 920 / 920
Output Total 275 / 275 1900 / 1900
Balance 65 / 65 -980 / -980
Physical Exam
Physical Exam
GEN: NAD. AAOx3
HEENT: MMM
LUNGS: RA. No audible wheeze
CV: Afib on tele
NEURO: Gross non-focal
[2024-10-31] MEDS: DUPHALAC/CHRONULAC PO ×2 (17:29→21:50)
--- NOTE | 2024-10-31 17:38 | PTCARENOTE ---
Pt family at bedside displayed napkin with large, red blood clot on tissue napkin to this RN from pt. Pt c/o sore throat and stuffy nose. MD made aware. Humidifier placed on oxygen and MD ordered Eliquis to be held.
--- NOTE | 2024-10-31 17:56 | W.PN.NEPH.PH ---
Today's Communication / Plan
-
follow labs
Assessment/Plan
-
Impression:
SANTOSH
Cough
CKD [id number] cr 1.5
ESBL in urine
Hx of Adrenal insufficiency
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
Abdominal ascites/hypoalbuminemia
MAZARIEGOS cirrhosis
Paroxysmal atrial fibrillation
Chronic diastolic heart failure/history of hepatic encephalopathy
Hypothyroidism
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
SANTOSH/ARF secondary to cefepime/meropenem had emergent dialysis 3-4 episodes August 2024 [facility]
Chronic diastolic CHF
HTN, realtive hypotension on midodrine
HLD
Adrenal insufficiency, Hx adrenal crisis 2013
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
GERD
Depression
UTIs
Class II obesity
Nonmobile status stands to transfer since August 2024
Osteoporosis
Chronic L1 compression fracture on chronic as needed oral opiates
mild hyponatremia
Plan:
A/w SANTOSH-no clear etiology other than low bp
Creatinine improved to 2.2 from 3.1
Continue oral Bumex 1mg BID for obvious volume overload but with compromised effective circulating
non oliguric with vargas
Zosyn renally dosed
CT no hydro but atrophic bilaterally kidneys
Bp stable on midodrine, back on cardizem and bisoprolol by cardiology
suspect that we may have to tolerate higher cr to maintain volume status
she has anasarca and all edema is not amenable for diuresis
suspect she at risk of HD in near future however concern tolerability with low BPs, no emergent need currently
dose meds renally
follow labs
avoid nephrotoxins
-
-
Date of Service: October 31, 2024
CC / HPI / ROS
-
Chief Complaint:
SANTOSH, CKD
History of Present Illness:
cr down to 2.2 k 3.5
Bp stable on midodrine, CCB and BB
wt down slightly
Review of Systems:
no cp or sob at rest
no n/v
cough+-reports improving
Labs
-
Labs:
WBC 11.6 10^3/uL (4.8-10.8) H 10/31/24 04:58
RBC 3.51 10^6/uL (4.20-5.40) L 10/31/24 04:58
Hgb 10.5 g/dL (12.0-16.0) L 10/31/24 04:58
Hct 32.9 % (37.0-47.0) L 10/31/24 04:58
Plt Count 129 10^3/uL (130-400) L 10/31/24 04:58
Sodium 137 mmol/L (135-145) 10/31/24 04:58
Potassium 3.5 mmol/L (3.5-5.1) 10/31/24 04:58
Chloride 98 mmol/L (98-107) 10/31/24 04:58
Carbon Dioxide 26 mmol/L (22-30) 10/31/24 04:58
BUN 65 mg/dl (7-17) H 10/31/24 04:58
Creatinine 2.2 mg/dL (0.6-1.0) H 10/31/24 04:58
eGFR 22.53 10/31/24 04:58
Glucose 125 mg/dl (70-99) H 10/31/24 04:58
Calcium 8.9 mg/dl (8.4-10.2) 10/31/24 04:58
Albumin 3.5 g/dl (3.5-5.0) 10/28/24 06:50
Physical Exam
-
Vital Signs:
Vital Signs
Temp Pulse Resp BP Pulse Ox
99.4 F 120 18 109/71 92
10/31/24 15:09 10/31/24 17:29 10/31/24 15:36 10/31/24 17:29 10/31/24 15:36
Cardiovascular:: Regular rate and rhythm
Respiratory:: Bilateral: Coarse
Lung Excursion:: Normal
Abdomen:: Nontender
Bowel Sounds:: Normal
Extremity Edema:: +3: Bilateral:
Vargas Catheter: No
[2024-10-31 19:00] VITALS: BP 121/88
[2024-10-31] MEDS: AFRIN NASAL SPRAY NASAL (20:26)
[2024-10-31 23:00] VITALS: BP 112/72
[2024-11-01] MEDS: LOPRESSOR 5 MG IV (00:24)
[2024-11-01 03:00] VITALS: BP 121/87
[2024-11-01] MEDS: SYNTHROID 75 MCG PO (05:28)
[2024-11-01] MEDS: CYTOMEL 5 MICROGRAM PO (05:28)
[2024-11-01] MEDS: ZOSYN 50 IV ×3 (05:28→17:05)
[2024-11-01 05:34] VITALS: BMI 37.0
[2024-11-01 06:31] LABS: Hematocrit 33.9 % (37.0-47.0); Hemoglobin 10.7 g/dL (12.0-16.0); Mean Corp Hgb Conc. 31.6 g/dL (33.0-37.0); Mean Platelet Volume 10.7 fL (7.4-10.4); Platelet Count 123 10^3/uL (130-400); Red Blood Cell Count 3.57 10^6/uL (4.20-5.40); Red Cell Dist. Width 19.7 % (11.5-14.5); White Blood Cell Count 14.4 10^3/uL (4.8-10.8)
[2024-11-01 06:51] LABS: Blood Urea Nitrogen 67 mg/dl (7-17); Calcium 9.1 mg/dl (8.4-10.2); Carbon Dioxide 29 mmol/L (22-30); Chloride 96 mmol/L (98-107); Estimated Creatinine Clearance 25 ml/min; Glucose 104 mg/dl (70-99); Potassium 3.5 mmol/L (3.5-5.1); Sodium 136 mmol/L (135-145); eGFR 25.26
[2024-11-01 07:14] LABS: Absolute Neutrophils -Man Diff 12.2 10^3/uL (1.4-6.5); Band Neutrophils 2 % (0-3); Lymphocytes 3 % (20-51); Metamyelocytes 3 % (-); Monocytes 6 % (2-9); Myelocytes 3 % (-); Segmented Neutrophils 83 % (42-75)
[2024-11-01 07:15] LABS: Anisocytosis 1+; Hypochromasia Slight; Normal RBC Morphology No; Ovalocytes Slight; Platelets Checked Yes; Total Cells Counted 100
[2024-11-01 07:26] VITALS: BP 115/70
[2024-11-01] MEDS: ATROVENT NEBULES 0.5 MG INH ×2 (07:41→15:14)
[2024-11-01] MEDS: DUPHALAC/CHRONULAC 20 GRAMS PO (08:20)
[2024-11-01] MEDS: CARDIZEM CD 120 MG PO (08:21)
[2024-11-01] MEDS: SANTYL OINTMENT 1 APPLIC TOPICAL (08:21)
[2024-11-01] MEDS: CIPRO 500 MG PO (08:21)
[2024-11-01] MEDS: CYMBALTA DELAYED RELEASE 30 MG PO (08:22)
[2024-11-01] MEDS: BUMEX 1 MG PO (08:22)
[2024-11-01] MEDS: ZEBETA 10 MG PO (08:22)
[2024-11-01] MEDS: XIFAXAN 550 MG PO (08:23)
[2024-11-01] MEDS: ProAmatine 10 MG PO ×2 (08:23→16:01)
[2024-11-01] MEDS: MUCINEX 600 MG PO (08:23)
[2024-11-01] MEDS: FLORASTOR 250 MG PO (08:24)
[2024-11-01] MEDS: SOLU-CORTEF 25 MG IV (08:25)
[2024-11-01] MEDS: AFRIN NASAL SPRAY 30 SPRAYS NASAL (08:30)
[2024-11-01 10:47] VITALS: BP 111/78
[2024-11-01] MEDS: ATROVENT NEBULES INH (11:29)
[2024-11-01 12:27] VITALS: BP 111/78; O2SAT 91
--- NOTE | 2024-11-01 12:39 | W.PN.NEPH.PH ---
Today's Communication / Plan
-
cont bumex and follow labs
await transfer to [place]
Assessment/Plan
-
Impression:
SANTOSH
Cough
CKD [id number] cr 1.5
ESBL in urine
Hx of Adrenal insufficiency
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
Abdominal ascites/hypoalbuminemia
MAZARIEGOS cirrhosis
Paroxysmal atrial fibrillation
Chronic diastolic heart failure/history of hepatic encephalopathy
Hypothyroidism
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
SANTOSH/ARF secondary to cefepime/meropenem had emergent dialysis 3-4 episodes August 2024 [facility] Verduzco
Chronic diastolic CHF
HTN, realtive hypotension on midodrine
HLD
Adrenal insufficiency, Hx adrenal crisis 2013
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
GERD
Depression
UTIs
Class II obesity
Nonmobile status stands to transfer since August 2024
Osteoporosis
Chronic L1 compression fracture on chronic as needed oral opiates
mild hyponatremia
Plan:
A/w SANTOSH-no clear etiology other than low bp
Creatinine improved to 2. from 3.1
Continue oral Bumex 1mg BID for obvious volume overload but with compromised effective circulating vol
follow CXR, ok for extra diuresis if needed
non oliguric with vargas
Zosyn renally dosed
CT no hydro but atrophic bilaterally kidneys
Bp stable on midodrine, back on cardizem and bisoprolol by cardiology
suspect that we may have to tolerate higher cr to maintain volume status
she has anasarca and all edema is not amenable for diuresis
suspect she at risk of HD in near future however concern tolerability with low BPs, no emergent need currently
dose meds renally
follow labs
avoid nephrotoxins
-
-
Date of Service: November 01, 2024
CC / HPI / ROS
-
Chief Complaint:
SANTOSH, CKD
History of Present Illness:
cr down to 2. k 3.5-stable
Bp stable on midodrine, CCB and BB
wt no change
Review of Systems:
no cp or sob at rest
no n/v
cough+-chronic
Labs
-
Labs:
WBC 14.4 10^3/uL (4.8-10.8) H 11/01/24 06:07
RBC 3.57 10^6/uL (4.20-5.40) L 11/01/24 06:07
Hgb 10.7 g/dL (12.0-16.0) L 11/01/24 06:07
Hct 33.9 % (37.0-47.0) L 11/01/24 06:07
Plt Count 123 10^3/uL (130-400) L 11/01/24 06:07
Sodium 136 mmol/L (135-145) 11/01/24 06:07
Potassium 3.5 mmol/L (3.5-5.1) 11/01/24 06:07
Chloride 96 mmol/L (98-107) L 11/01/24 06:07
Carbon Dioxide 29 mmol/L (22-30) 11/01/24 06:07
BUN 67 mg/dl (7-17) H 11/01/24 06:07
Creatinine 2.0 mg/dL (0.6-1.0) H 11/01/24 06:07
eGFR 25.26 11/01/24 06:07
Glucose 104 mg/dl (70-99) H 11/01/24 06:07
Calcium 9.1 mg/dl (8.4-10.2) 11/01/24 06:07
Albumin 3.5 g/dl (3.5-5.0) 10/28/24 06:50
Physical Exam
-
Vital Signs:
Vital Signs
Temp Pulse Resp BP Pulse Ox
97.8 F 94 18 111/78 95
11/01/24 10:47 11/01/24 10:47 11/01/24 10:47 11/01/24 10:47 11/01/24 10:47
Cardiovascular:: Regular rate and rhythm
Respiratory:: Bilateral: Coarse
Lung Excursion:: Normal
Abdomen:: Nontender
Bowel Sounds:: Normal
Extremity Edema:: +3: Bilateral:
Vargas Catheter: No
--- NOTE | 2024-11-01 12:43 | W.PN.CARDCBS ---
Addendum entered and electronically signed by Cabrera Dalal MD 11/01/24 13:15:
I saw and examined the patient.
The MANGLE OPERATOR GARMENTS or PA's note was reviewed and I agree with the note.
Comment: General: Well developed, well nourished in NAD.
Neck: Supple, no JVD, HJR, carotids +2 B/L, no bruits bilaterally.
Heart: Non displaced PMI, Irreg, no murmurs, No S3, S4, no rubs.
Lungs: scattered rhonchi
Extremities: No clubbing, cyanosis or edema bilaterally.
Neuro: Grossly nonfocal, awake, alert and oriented x3.
stable cardiology status for transfer to [place]. Heart rate control a bit suboptimal but will continue with Cardizem 120 mg p.o. twice daily. May consider increasing dose if heart rate remains high.
Original Note:
Today's Communication / Plan
-
Tolerating higher dose of Cardizem CD 120 mg BID
Impression / Plan
-
PCP: Charmaine Damian MANGLE OPERATOR GARMENTS
Card: Dr. Alyssa Caballero
Impression:
Admitted with SANTOSH, sepsis, hypotension 10/25/24
Chronic hypotension
multifactorial including chronic adrenal insufficiency, chronic liver disease, hypoalbuminemia with intravascular volume depletion and possibly sepsis
Chronic HFpEF -NYHA class 3, ACC stage C
Afib w/ RVR
seems to be more persistent with ECGs in Afib since 11/2023
Chronic Eliquis OAC
Obstructive sleep apnea, variable compliance with CPAP
Chronic adrenal insufficiency on chronic steroids
h/o pituitary cyst s/p removal 2013
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
History of hepatic encephalopathy
SANTOSH with background CKD stage 3B
Chronic anasarca/lymphedema/hypoalbuminemia
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
History of recurrent UTIs
HTN
Hypothyroidism
h/o statin intolerance
Epistaxis
Lexiscan nuclear stress test 2021: small mild zied defect mid anterior wall that is fixed, defect did not meet quantitative criteria, normal global LV function
ECHO 02/29/24: This was a technically difficult study. The rhythm is AF, mildly reduced LVEF, global, EF 50%. Normal RV size and function. Mildly dilated right and left atrium. No significant valvular disease
Echo 10/29/24: EF 50%, mild concentric LVH, mild MR, mild TR, trivial pericardial effusion with fat pad present, compared to echo from 02/2024 there is no significant change
Plan:
-From a cardiac standpoint, patient continues with known persistent Afib on tele review by me 11/01/24.
-BP is tolerating increased dose of Cardizem CD 120 mg BID that was started 10/31/24pm.
-Patient admitted from [facility] on night, 10/25/24 with SANTOSH. Cardiology was consulted for Afib with RVR. Patient has been waiting on transfer to [place].
-Outpatient dose of Eliquis 5 mg BID (age 79, Cre 2.4, wt 90.58 kg) has been continued
-Hypotension is likely multifactorial including chronic adrenal insufficiency, chronic liver disease, hypoalbuminemia with intravascular volume depletion and possibly sepsis. Hypotension is improving with IV antibiotics and hydrocortisone.
-Abdominal U/S on 10/29/2024 showed no significant ascites
-Nephrology following for SANTOSH on CKD 3b. Outpatient dose of Bumex 1 mg PO BID restarted 10/29/24 PM for hypervolemia. Does not appear to be in acute HF
-Nephrology note points out that patient has anasarca and all edema is not amenable for diuresis. There is also concern the patient is at risk for HD in the near future, but given low BP it is unclear if she would tolerate that and certainly no
need emergently.
Progress Note - Projects Manager
Subjective
Date of Service: November 01, 2024
Feels the same, she wishes they had a bed at [place]
Objective
Labs:
11/01/24 06:07
02/06/25 06:07
Labs
Hgb 10.7 g/dL (12.0-16.0) L 11/01/24 06:07
Hct 33.9 % (37.0-47.0) L 11/01/24 06:07
Plt Count 123 10^3/uL (130-400) L 11/01/24 06:07
PT 25.7 Sec (11.4-14.6) H 10/28/24 06:50
INR 2.34 10/28/24 06:50
Sodium 136 mmol/L (135-145) 11/01/24 06:07
Potassium 3.5 mmol/L (3.5-5.1) 11/01/24 06:07
BUN 67 mg/dl (7-17) H 11/01/24 06:07
Creatinine 2.0 mg/dL (0.6-1.0) H 11/01/24 06:07
Glucose 104 mg/dl (70-99) H 11/01/24 06:07
Vital Signs and I&O:
Vital Signs
Temp Pulse Resp BP Pulse Ox
97.8 F 94 18 111/78 95
11/01/24 10:47 11/01/24 10:47 11/01/24 10:47 11/01/24 10:47 11/01/24 10:47
Vital Signs
Temp Pulse Resp BP Pulse Ox
97.8 F 94 18 111/78 95
11/01/24 10:47 11/01/24 10:47 11/01/24 10:47 11/01/24 10:47 11/01/24 10:47
Intake & Output
10/30/24 10/31/24 11/01/24 11/02/24
06:59 06:59 06:59 06:59
Intake Total 920 / 920 1000 / 1000
Output Total 1900 / 1900 775 / 775
Balance -980 / -980 225 / 225
Physical Exam
Physical Exam
GEN: NAD. AAOx3
HEENT: MMM
LUNGS: RA. No audible wheeze
CV: Afib on tele
NEURO: Gross non-focal
[2024-11-01] MEDS: DUPHALAC/CHRONULAC PO ×3 (12:51→18:06)
[2024-11-01 15:59] VITALS: BP 93/59
--- NOTE | 2024-11-01 16:18 | W.PN.ID1 ---
Date of Service
Date of Service: November 01, 2024
Today's Communication
See below.
Assessment / Plan
# RUL PNA
# Suspect CAUTI. Urinary retention with vargas
# Allergies to meropenem (tremors), cefepime (mental status change), PCN (hives, but tolerating Zosyn)
-COVID/Flu negative
- blood cultures x1 neg to date
- 10/26 urine culture > 100K ESBL GNR x2 - K pneumoniae and ESBL Ecoli
- 10/14 urine culture >100K ESBL GNR x2 - K pneumoniae and ESBL Ecoli (untreated)
- Continue Zosyn (d6 of 7) for PNA and CAUTI. Pt tolerating abx.
# Leukocytosis
# Acute on chronic hypotension, resolved
# Adrenal insufficiency
- Off stress dose steroid taper
On maintenance prednisone 5mg a day.
- WBC continues to trend up.
No diarrhea.
Repeat CXR no new infiltrates
- Repeat blood cx's x 2
-Repeat UA/reflex Ucx
- Follow wbc
# SANTOSH on CKD4, improving
- Nephrology following
# Left knee PJI pseudomonas
-s/p washout, liner exchange at [facility] 09/15
- On chronic suppressive therapy cipro, renally adjusted 500mg daily.
- Currently on Zosyn for PNA and ESBL UTI - unknown if Pseudomonas sensitive Zosyn. Continue cipro.
- Follow-up with outside Ortho.
# Persistent AFIB with RVR
- Awaiting transfer to [place].
Updated daughter, Maame, over the phone.
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
L knee PJI with Pseudomonas s/p washout at [facility] 09/15/24, on chronic suppression cipro
SANTOSH/ARF secondary to cefepime vs meropenem had emergent dialysis 3-4 episodes August 2024 [facility]
CKD stage IV
MAZARIEGOS cirrhosis with anasarca
Hx hepatic encephalopathy
P A-fib
Diastolic CHF
Hx pituitary cyst
EDELMIRA on CPAP (reportedly noncompliant)
Dyslipidemia
Hypothyroidism
GERD
Morbid obesity
L1 compression fracture
Orthostatic hypotension
HTN
ESBL in urine
Adrenal insufficiency
R TKR
Chief Complaint
-: Pneumonia
Subjective / Review of Systems
No new complaints. Still with chest congestion. No diarrhea. No chills.
Vital Signs / Physical Exam
Vital Signs
Vital Signs
Temp Pulse Resp BP Pulse Ox
97.7 F 114 18 93/59 96
11/01/24 15:59 11/01/24 16:01 11/01/24 15:59 11/01/24 16:01 11/01/24 15:59
Physical Exam
Constitutional: No Acute Distress and Chronically Ill
Eyes: No Conjunctival Hemorrhage
Pulmonary: Rhonchi and Coarse (bilaterally)
Gastrointestinal: Soft, Non Tender, Non Distended and Normal Bowel Sounds
Genito-Urinary: Vargas and Clear Urine
Extremities: Edema (BLE)
Musculoskeletal: Other (left knee no erythema/warmth)
Neurological: AO x 3
Objective Data
Lab Data
Lab Results
11/01/24 06:07
11/01/24 06:07
PT 25.7 Sec (11.4-14.6) H 10/28/24 06:50
INR 2.34 10/28/24 06:50
Estimated Creat Clear 25 ml/min 11/01/24 06:07
Lactic Acid 2.4 mmol/L (0.7-2.0) H 10/28/24 06:50
Total Bilirubin 3.3 mg/dl (0.2-1.3) H 10/28/24 06:50
AST 27 U/L (14-36) 10/28/24 06:50
ALT 15 U/L (0-35) 10/28/24 06:50
Alkaline Phosphatase 95 U/L (38-126) 10/28/24 06:50
Most recent labs reviewed.
Micro Results:
11/01/24 14:50 Blood Culture - Pending
Blood/Venous
11/01/24 15:39 Blood Culture - Pending
Blood/Venous
10/27/24 15:10 Blood Culture - Final
Blood/Venous No Growth - Final Report
10/26/24 20:31 MRSA Screen - Final
Nose No Methicillin Resistant Staphylococcus aureus isolated.
10/26/24 00:08 Urine Culture - Final
Urine Klebsiella pneumoniae-ESBL
Escherichia coli - ESBL
10/26/24 14:57 Influenza Types A & B (TRISTAN) - Final
Nasal Swab Negative for Influenza A & B, NAAT
Negative results must be combined with clinical observations
and patient history.
Nucleic Acid Amplification test (NAAT)performed on the
[employer] platform.
11/01/24 CXR 2 view personally reviewed. No acute change compared to 10/28 CXR
10/26/24 CT chest a/p: Ill-defined groundglass opacity in the right upper lobe which may be inflammatory/infectious. Moderate colonic stool burden and colonic diverticulosis. Large volume stool seen filling and distending the rectum, without
intestinal obstruction. Evaluation of soft tissues of the true pelvis markedly limited without intravenous and oral contrast and also as a result of beam hardening artifact from metal hardware in the left hip. Atrophic kidneys bilaterally without
gross findings to suggest collecting system dilatation. Virtually empty urinary bladder containing some bubbles of air, difficult to determine if there is a Vargas catheter within.
10/25/24 CXR: No suspected pneumonia.
Care Review
Plan reviewed with: Physician (Dr. Courtney)
--- NOTE | 2024-11-01 16:49 | W.PN.HOSP.TC ---
Today's Communication/Plan
-
Pending transfer to [place]
Continue antibiotics per
Follow WBC present and reculture.
Continue current cardiovascular regimen including diuretics
Assessment / Plan
Assessment / Plan
Impression:
Sepsis present on admission.
Developing septic shock with acute on chronic hypotension.
SANTOSH on CKD stage IIIb baseline creatinine 1.5.
Lactic acidosis
Suspected adrenal insufficiency
Urinary retention requiring Gutiérrez catheter placement failing trial of voiding at the nursing facility.
Sacrum Stage 1 Pressure Injury, POA
Conditions prior to admission:
1. Recent hospitalization in outside hospital with prosthetic left
knee arthritis. Patient is on ciprofloxacin for chronic therapy.
2. Urinary tract infection with Klebsiella reported that admission
as well.
3. Acute kidney injury requiring hemodialysis, currently stable
renal function while on Bumex.
4. Chronic kidney disease, stage 3B, with baseline creatinine
around 1.4-1.5.
5. Advanced nonalcoholic steatohepatitis cirrhosis with anasarca
and hepatic encephalopathy. Patient is on maintenance of lactulose.
6. Paroxysmal atrial fibrillation. Patient is on anticoagulation
with Eliquis.
7. Chronic diastolic congestive heart failure.
8. Obstructive sleep apnea, not compliant, intolerant to CPAP.
9. Dyslipidemia.
10. Hypothyroidism on replacement.
11. Gastroesophageal reflux disease.
12. Obesity with body mass index of 38.
Plan:
Sepsis with septic shock present on admission.
Potential sources:
-Right upper lobe pneumonia, concern for aspiration,
-Complicated UTI noted with bacterial colonization ESBL Klebsiella, E. coli
� SBP less likely. Abdominal ultrasound with no evidence of ascites
� Left knee PJI on ciprofloxacin suppression.
COVID-negative. Influenza negative
Blood cultures negative to date.
Chest x-ray with right upper lobe groundglass opacity
Repeated urine culture with ESBL E. coli/ESBL Klebsiella.
Multiple antibiotic allergies.
Currently on Zosyn as well as ciprofloxacin for left knee PJI suppression.
11/01 noted with rising WBC while on tapering down steroid dose
Follow-up chest x-ray with no significant changes consistent with right upper lobe infiltrate
Reculture, follow WBC closely
Septic shock with acute on chronic hypotension present on admission
With stable hemodynamics at this point.
Continue midodrine.
Hold Bumex monitor renal function
Suspected adrenal insufficiency
Random cortisol level skewed with ongoing pulse dose of IV corticosteroids
On maintenance of prednisone 5 mg [employer]ILE [employer]OR.
Taper hydrocortisone to 25 mg IV every 8 hours
Acute kidney injury/CKD 3B with baseline creatinine 1.5
Metabolic acidosis/lactic acidosis
Decreased urine sodium suggesting prerenal etiology.
Nonoliguric
Gutiérrez is in place (has been replaced at nursing facility with failed trial of voiding prior to this admission)
Creatinine trending down to 3.1�2.6
Maintain Gutiérrez
Exam with volume overload/anasarca
Consider resume gentle diuresis if BPs allows
Avoid nephrotoxic agents.
Hypokalemia:
Replete and trend
Chronic CHF mildly reduced EF
Echo 03/19 LVEF 48-50%. Estimated pulmonary pressure 50-55 mmHg. Mild TR
Chest x-ray with groundglass opacity mostly at the right side? Pneumonia versus asymmetric pulmonary edema
Updated echocardiogram pending
Bumex resumed.
Paroxysmal A-fib:
On anticoagulation for thromboembolic prophylaxis with Eliquis [employer].
Reintroduce preadmission rate control regimen with bisoprolol and Cardizem. Suboptimally controlled rates required increase of Cardizem dose.
youth nutritional monitor
Epistaxis noted on . Self-limited. On current exam with no active bleeding. Continue Eliquis with caution
Continue oxygen with humidifier
History of Ngo liver cirrhosis:
Ultrasound to assess for ascites
Continue oral lactulose/rifaximin
Hypothyroidism:
Continue thyroid replacement
Chronic postop knee infection:
On suppressive antibiotic therapy with Cipro
Anemia:
Continue to monitor hemoglobin closely
No signs of active bleed
DVT prophylaxis:
SCDs plus Eliquis
CODE STATUS:
Full code
10/29: Goals of care discussion with patient's daughter. Indicating on overall deteriorating patient's condition with poor performance status, multiple organ failure including hepatic, renal, respiratory, recurrent hospitalization with sepsis
requiring intensive management. Suggesting palliative approach with consideration of hospice. Family will discuss options.
Anticipated Discharge: 24 - 48 hours
Subjective/Interval History
-
Date of Service: November 01, 2024
Objective Data
-
Labs:
Laboratory Results
11/01/24
06:07
WBC 14.4 H
Hgb 10.7 L
Hct 33.9 L
Plt Count 123 L
Sodium 136
Potassium 3.5
Chloride 96 L
Carbon Dioxide 29
BUN 67 H
Creatinine 2.0 H
Glucose 104 H
Calcium 9.1
Vital Signs:
Vital Signs
Temp Pulse Resp BP Pulse Ox
97.7 F 114 18 93/59 96
11/01/24 15:59 11/01/24 16:01 11/01/24 15:59 11/01/24 16:01 11/01/24 15:59
I&O
10/31/24 11/01/24 11/02/24
06:59 06:59 06:59
Intake Total 920 / 920 1000 / 1000
Output Total 1900 / 1900 775 / 775
Balance -980 / -980 225 / 225
Physical Exam
-
General: Comfortable
Respiratory: Clear to Auscultation (ant) and Non Labored Respirations; Negative Accessory Resp Muscle Use
Cardiac: Regular Rhythm and S1/S2; Negative Tachycardic
GI: Soft and Nontender
Genito-urinary: Gutiérrez
Musculoskeletal: Edema, Right Upper Extrem, Edema, Left Upper Extrem, Edema, Right Lower Extrem and Edema, Left Lower Extrem
Neuro: AO x 3
Psych: Calm; Negative Confused
[2024-11-01 19:05] VITALS: BP 114/81
--- NOTE | 2024-11-01 20:21 | PTCARENOTE ---
Patient transferred to [facility] via [place] transport. Report called. All belongings taken with patient. Tele monitor removed before transport.
== END 2024-11-01 20:25 | disposition short-term general hospital (02) | DRG 698 ==
LOC: 3 WEST ACU 04:45
PROVIDERS: Hospitalist; Nurse Practitioner Family; Specialist; Student in an Organized Health Care Education/Training Program; ADMITTING PHYSICIAN Internal Medicine; ATTENDING PHYSICIAN Internal Medicine; CONSULT PHYSICIAN Internal Medicine Cardiovascular Disease; EMERGENCY PHYSICIAN Student in an Organized Health Care Education/Training Program; FAMILY PHYSICIAN Nurse Practitioner; OTHER PHYSICIAN Internal Medicine; OTHER PHYSICIAN Internal Medicine Infectious Disease; OTHER PHYSICIAN Specialist
DX: T83.511A Infection and inflammatory reaction due to indwelling urethral catheter, initial encounter (principal); A41.59 Other Gram-negative sepsis; R65.21 Severe sepsis with septic shock; J18.9 Pneumonia, unspecified organism; J69.0 Pneumonitis due to inhalation of food and vomit; N17.9 Acute kidney failure, unspecified; E27.40 Unspecified adrenocortical insufficiency; I13.0 Hypertensive heart and chronic kidney disease with heart failure and stage 1 through stage 4 chronic kidney disease, or unspecified chronic kidney disease; I50.32 Chronic diastolic (congestive) heart failure; E87.20 Acidosis, unspecified; Z16.12 Extended spectrum beta lactamase (ESBL) resistance; N39.0 Urinary tract infection, site not specified; I48.0 Paroxysmal atrial fibrillation; K75.81 Nonalcoholic steatohepatitis (NASH); K74.60 Unspecified cirrhosis of liver; K21.9 Gastro-esophageal reflux disease without esophagitis; E03.9 Hypothyroidism, unspecified; E66.01 Morbid (severe) obesity due to excess calories; E66.812 Obesity, class 2; E78.00 Pure hypercholesterolemia, unspecified; G47.33 Obstructive sleep apnea (adult) (pediatric); N18.32 Chronic kidney disease, stage 3b; L89.152 Pressure ulcer of sacral region, stage 2; F32.A Depression, unspecified; I89.0 Lymphedema, not elsewhere classified; M81.0 Age-related osteoporosis without current pathological fracture; I95.89 Other hypotension; R33.8 Other retention of urine; Y84.6 Urinary catheterization as the cause of abnormal reaction of the patient, or of later complication, without mention of misadventure at the time of the procedure; Z79.52 Long term (current) use of systemic steroids; Z68.37 Body mass index [BMI] 37.0-37.9, adult; Z79.899 Other long term (current) drug therapy; Z91.199 Patient's noncompliance with other medical treatment and regimen due to unspecified reason; Z88.1 Allergy status to other antibiotic agents; Z88.0 Allergy status to penicillin; Z79.890 Hormone replacement therapy; Z86.73 Personal history of transient ischemic attack (TIA), and cerebral infarction without residual deficits; Z79.83 Long term (current) use of bisphosphonates; Z79.01 Long term (current) use of anticoagulants; R04.0 Epistaxis; Z11.52 Encounter for screening for COVID-19
CPT/HCPCS: 71045; 71046; 71250; 74176; 76705; 80048; 80053; 80076; 81003; 81015; 82140; 82533; 82570; 83605; 84145; 84156; 84300; 85025; 85027; 85610; 87040; 87070; 87077; 87086; 87186; 87502; 87811; 92526; 92610; 93306; 94640; 97530; 97535; 99285; P9047